=== PATIENT | male | born 1945 | race Caucasian/White ===

== ENCOUNTER 2023-10-17 17:23 | Inpatient (IN) | payer MEDICARE, BC, SELFPAY ==
--- NOTE | 2023-10-16 10:24 | ED.GENMED ---
History of Present Illness
<Meme Doe PA-C - Last Filed: 10/16/23 16:02>
General
Chief Complaint: Change in Mental Status
Source: patient
Exam Limitations: none
Time Seen by Provider: 10/16/23 10:22
Nursing documentation reviewed up to this point in time: agreed with
History of Present Illness
History of Present Illness:
78-year-old male with past history of TIA, hypertension, hyperlipidemia, dementia presents today with concerns of altered mental status. EMS reports that [place] home, [place] with family and family called 911 because patient has been acting
increasingly more confused the past few days. Today, when they went into his bedroom, he noticed he was less responsive and laid on his bed and stated that 'something is wrong'. Currently, patient states that he feels well and states that he is
trouble walking but otherwise denies chest pain, shortness of breath, cough, abdominal pain, nausea, vomiting, diarrhea. Family member arrives and reports that patient does have some mild dementia at baseline but yesterday, he started acting a bit
delirious and was complaining of chills. Family reports that he has not been coughing or complaining of shortness of breath but she notes that he has been ataxic and notes that his presentation today is very similar to the time when he was
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
Past History
<Meme Doe PA-C - Last Filed: 10/16/23 16:02>
Past History
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
stenosis 65% in 2018, proximal left vertebral artery occlusion)
ED Past Surgical History: Orthopedic (left wrist surgery, left foot surgery) and Other (left carotid endarterectomy, prostatectomy)
Social History
Tobacco: Former smoker
Alcohol: Occasional
Personal: Partner
Living: with family
Employment: Other (continues to work)
Family History
Family History: Other (reviewed and noncontributory)
Review of Systems
<eMme Doe PA-C - Last Filed: 10/16/23 16:02>
Review of Systems
All Other Systems: ROS reviewed and negative except as documented in HPI and ROS
Phy Exam
<Meme Doe PA-C - Last Filed: 10/16/23 16:02>
Physical Exam
Physical Exam:
General: Patient is well appearing and in no acute distress; non-toxic
Skin: Warm and dry, no rashes or lesions
Head: Normocephalic, atraumatic
Eyes: Sclera non-icteric. EOMs intact.
Cardiac: Regular rate and rhythm, no murmurs
Peripheral Vascular: No lower extremity swelling or edema
Pulm: Normal respiratory effort, no wheezes, rales, or rhonchi
Abdomen: No abdominal tenderness to palpation, no palpable masses
Musculoskeletal: 5/5 strength in bilateral upper and lower extremities.
Neuro: CN II-XII intact, no focal neurologic deficits. Abnormal finger to nose testing. Ataxic gate.
Psychiatric: Appropriate mood and affect.
Course
<Meme Doe PA-C - Last Filed: 10/16/23 16:02>
Orders/Labs/Results
Orders:
Orders
10/16/23 10:37
Complete Blood Count/With Diff Urgent
Comprehensive Metabolic Panel Urgent
Lyme Progressive Urgent
Comment: ADD
10/16/23 10:47
CT Head W/o Iv Contrast Urgent
Comment:
Reason For Exam: altered mental status
Lyme PCR, DNA [S] Urgent
CR Chest - 2 Views Urgent
Comment:
Reason For Exam: cold symptoms, altered mental status
10/16/23 10:56
Add On- LAB Urgent
Tests Added?: lyme disease
COVID-19 Antigen Urgent
Source: Nasal Swab
10/16/23 11:20
Acetaminophen [Tylenol] 1,000 mg PO NOW STA
10/16/23 12:56
Urinalysis Reflex To Culture Urgent
Date Specimen was Collected: 10/16/23
Time Specimen was Collected: 12:47
Urine Microscopic Reflex Cult Urgent
Urine Culture Urgent
HE Source: U
Specimen Description:
Date Specimen was Collected: 10/16/23
Time Specimen was Collected: 12:47
10/16/23 13:31
Admit/Transfer Patient As Directed
Co-Sign Provider:
Level of Care: Observation services
Assign to:: Telemetry
Physician / Group: vale rolon
Diagnosis: covid-19 infection,ataxia , pyuria likely uti
Reason for Telemetry: Arrhythmia
Date to Stop Telemetry: 10/19/23
Time to Stop Telemetry: 11:00
Reason for Hospitalization: covid-19 infection,ataxia , pyuria likely uti
Code Status As Directed
Resuscitation Status: Do not resuscitate
Reached after discussion with pt or family/Healthcare POA: Yes
Based on pt advanced directive or healthcare POA form: Yes
Decision communicated with: Per patient with Terese SALMON at bedside
10/16/23 13:32
DNR Bracelet Application ONCE
10/16/23 13:46
CefTRIAXone [Rocephin] 1,000 mg IV NOW STA
10/16/23 13:54
Sterile Water [Sterile Water For Injection] 10 ml IV NOW STA
10/16/23 Dinner
1800 calorie (15 carb) Diabetic
10/16/23 15:39
0.9% Sodium Chloride 1000 ml [Nss] 1,000 ml IV 80 mls/hr
Dextrose 50%-Water [Dextrose 50% Syringe] 12.5 grams IV [id number] PRN
Glucagon [GlucaGen] 1 mg IM PRN PRN
10/16/23 15:39
MRI Brain [MR Brain Without Contrast] Routine
Comment:
Reason For Exam: MS change, covid, previous CVA
Recent pill cam endoscopy?: No
Activity As Directed
Activity Level: With Assistance
Bedside Glucose Monitoring As Directed
Frequency: AC&HS
Additional Instructions:: Change to q6h if pt on TPN, tube feeding or not eating
Vital Signs As Directed
Frequency: Per unit guidelines
Ot Eval And Treat Routine
Pt Eval And Treat Routine
Activity Level: As Tolerated
Carotid US [US Cerebrovascular] Routine
Comment:
Reason For Exam: H/O CS
DX Deep Vein Thrombosis Video Routine
10/16/23 16:30
Insulin Aspart Corrective Low [Novolog Flexpen-Low Resistance] See Protocol SC AC
10/16/23 17:00
METFORMIN HCl [Glucophage] 500 mg PO BID@0800,1700
10/16/23 18:00
Acetaminophen [Tylenol] 650 mg PO Q6HPRN PRN
Atorvastatin [Lipitor] 40 mg PO QPM
Enoxaparin Sodium [Lovenox] 40 mg SC QPM
Metoprolol Xl [Toprol Xl] 100 mg PO QPM
Ramipril [Altace] 10 mg PO QPM
10/16/23 20:00
Thiamine HCl [Vitamin B1] 250 mg PO BID
10/17/23 06:00
Complete Blood Count/With Diff IN AM
Comprehensive Metabolic Panel IN AM
Glycohemoglobin (HgbA1c) IN AM
10/17/23 08:00
Aspirin Low Dose EC [Aspir Low (Enteric Coated)] 81 mg PO DAILY
Cholecalciferol (Vitamin D3) [VITAMIN D3 (cholecalciferol)] 100 mcg PO DAILY
Lactobac/Bifidobac [Visbiome] 1 cap PO DAILY
10/17/23 14:00
CefTRIAXone [Rocephin] 1,000 mg IV Q24H
10/18/23 06:00
Complete Blood Count/With Diff IN AM
Comprehensive Metabolic Panel IN AM
10/19/23 06:00
Complete Blood Count/With Diff IN AM
Comprehensive Metabolic Panel IN AM
10/19/23 11:00
DC Protocol for Telemetry ONCE
Abnormal Lab Results
10/16/23 10/16/23 10/16/23
10:37 10:56 12:56
RBC 3.63 L 10^6/uL
(4.70-6.10)
Hgb 12.1 L g/dL
(13.0-18.0)
Hct 35.7 L %
(39.0-52.0)
MCV 98.3 H fL
(80.0-94.0)
MCH 33.3 H pg
(27.0-31.0)
MPV 10.7 H fL
(7.4-10.4)
Absolute Lymphs (auto) 1.0 L 10^3/uL
(1.2-3.4)
Absolute Monos (auto) 0.8 H 10^3/uL
(0.1-0.6)
Lymphocytes % 18.6 L %
(20.5-51.1)
Monocytes % 13.7 H %
(1.7-9.3)
Sodium 133 L mmol/L
(135-145)
Total Protein 5.7 L g/dl
(6.3-8.2)
Urine Ketones 1+ A
(Negative)
Ur Occult Blood Reflex 4+ A
(Negative)
Leukocyte Esterase Rfl 1+ A
(Negative)
Urine RBC >100 A /HPF
(0-2)
Urine WBC (Reflex) 30-40 A /HPF
(0-5)
Urine Bacteria (Reflex) Moderate A
(Negative)
SARS-CoV-2 Antigen Positive A
(Negative)
10/16/23 10:37
10/16/23 10:37
Vital Signs
Initial and Last Documented VS:
Initial Vital Signs
Pulse Resp
67 14
10/16/23 10:33 10/16/23 10:33
Last Documented Vital Signs
Temp Pulse Resp BP Pulse Ox
99.3 F 55 15 154/63 98
10/16/23 13:00 10/16/23 13:00 10/16/23 11:00 10/16/23 11:00 10/16/23 13:00
<Deedee Cole MD - Last Filed: 10/16/23 11:34>
Orders/Labs/Results
Orders:
Orders
10/16/23 10:37
Complete Blood Count/With Diff Urgent
Comprehensive Metabolic Panel Urgent
Lyme Progressive Urgent
Comment: ADD
10/16/23 10:47
CT Head W/o Iv Contrast Urgent
Comment:
Reason For Exam: altered mental status
Lyme PCR, DNA [S] Urgent
CR Chest - 2 Views Urgent
Comment:
Reason For Exam: cold symptoms, altered mental status
10/16/23 10:56
Add On- LAB Urgent
Tests Added?: lyme disease
COVID-19 Antigen Urgent
Source: Nasal Swab
10/16/23 11:20
Acetaminophen [Tylenol] 1,000 mg PO NOW STA
10/16/23 12:56
Urinalysis Reflex To Culture Urgent
Date Specimen was Collected: 10/16/23
Time Specimen was Collected: 12:47
Urine Microscopic Reflex Cult Urgent
Urine Culture Urgent
HE Source: U
Specimen Description:
Date Specimen was Collected: 10/16/23
Time Specimen was Collected: 12:47
10/16/23 13:31
Admit/Transfer Patient As Directed
Co-Sign Provider:
Level of Care: Observation services
Assign to:: Telemetry
Physician / Group: vale rolon
Diagnosis: covid-19 infection,ataxia , pyuria likely uti
Reason for Telemetry: Arrhythmia
Date to Stop Telemetry: 10/19/23
Time to Stop Telemetry: 11:00
Reason for Hospitalization: covid-19 infection,ataxia , pyuria likely uti
Code Status As Directed
Resuscitation Status: Do not resuscitate
Reached after discussion with pt or family/Healthcare POA: Yes
Based on pt advanced directive or healthcare POA form: Yes
Decision communicated with: Per patient with Terese SALMON at bedside
10/16/23 13:32
DNR Bracelet Application ONCE
10/16/23 13:46
CefTRIAXone [Rocephin] 1,000 mg IV NOW STA
10/16/23 13:54
Sterile Water [Sterile Water For Injection] 10 ml IV NOW STA
10/16/23 Dinner
1800 calorie (15 carb) Diabetic
10/16/23 15:39
0.9% Sodium Chloride 1000 ml [Nss] 1,000 ml IV 80 mls/hr
Dextrose 50%-Water [Dextrose 50% Syringe] 12.5 grams IV [id number] PRN
Glucagon [GlucaGen] 1 mg IM PRN PRN
10/16/23 15:39
MRI Brain [MR Brain Without Contrast] Routine
Comment:
Reason For Exam: MS change, covid, previous CVA
Recent pill cam endoscopy?: No
Activity As Directed
Activity Level: With Assistance
Bedside Glucose Monitoring As Directed
Frequency: AC&HS
Additional Instructions:: Change to q6h if pt on TPN, tube feeding or not eating
Vital Signs As Directed
Frequency: Per unit guidelines
Ot Eval And Treat Routine
Pt Eval And Treat Routine
Activity Level: As Tolerated
Carotid US [US Cerebrovascular] Routine
Comment:
Reason For Exam: H/O CS
DX Deep Vein Thrombosis Video Routine
10/16/23 16:30
Insulin Aspart Corrective Low [Novolog Flexpen-Low Resistance] See Protocol SC AC
10/16/23 17:00
METFORMIN HCl [Glucophage] 500 mg PO BID@0800,1700
10/16/23 18:00
Acetaminophen [Tylenol] 650 mg PO Q6HPRN PRN
Atorvastatin [Lipitor] 40 mg PO QPM
Enoxaparin Sodium [Lovenox] 40 mg SC QPM
Metoprolol Xl [Toprol Xl] 100 mg PO QPM
Ramipril [Altace] 10 mg PO QPM
10/16/23 20:00
Thiamine HCl [Vitamin B1] 250 mg PO BID
10/17/23 06:00
Complete Blood Count/With Diff IN AM
Comprehensive Metabolic Panel IN AM
Glycohemoglobin (HgbA1c) IN AM
10/17/23 08:00
Aspirin Low Dose EC [Aspir Low (Enteric Coated)] 81 mg PO DAILY
Cholecalciferol (Vitamin D3) [VITAMIN D3 (cholecalciferol)] 100 mcg PO DAILY
Lactobac/Bifidobac [Visbiome] 1 cap PO DAILY
10/17/23 14:00
CefTRIAXone [Rocephin] 1,000 mg IV Q24H
10/18/23 06:00
Complete Blood Count/With Diff IN AM
Comprehensive Metabolic Panel IN AM
10/19/23 06:00
Complete Blood Count/With Diff IN AM
Comprehensive Metabolic Panel IN AM
10/19/23 11:00
DC Protocol for Telemetry ONCE
Abnormal Lab Results
10/16/23 10/16/23 10/16/23
10:37 10:56 12:56
RBC 3.63 L 10^6/uL
(4.70-6.10)
Hgb 12.1 L g/dL
(13.0-18.0)
Hct 35.7 L %
(39.0-52.0)
MCV 98.3 H fL
(80.0-94.0)
MCH 33.3 H pg
(27.0-31.0)
MPV 10.7 H fL
(7.4-10.4)
Absolute Lymphs (auto) 1.0 L 10^3/uL
(1.2-3.4)
Absolute Monos (auto) 0.8 H 10^3/uL
(0.1-0.6)
Lymphocytes % 18.6 L %
(20.5-51.1)
Monocytes % 13.7 H %
(1.7-9.3)
Sodium 133 L mmol/L
(135-145)
Total Protein 5.7 L g/dl
(6.3-8.2)
Urine Ketones 1+ A
(Negative)
Ur Occult Blood Reflex 4+ A
(Negative)
Leukocyte Esterase Rfl 1+ A
(Negative)
Urine RBC >100 A /HPF
(0-2)
Urine WBC (Reflex) 30-40 A /HPF
(0-5)
Urine Bacteria (Reflex) Moderate A
(Negative)
SARS-CoV-2 Antigen Positive A
(Negative)
10/16/23 10:37
10/16/23 10:37
Vital Signs
Initial and Last Documented VS:
Initial Vital Signs
Pulse Resp
67 14
10/16/23 10:33 10/16/23 10:33
Last Documented Vital Signs
Temp Pulse Resp BP Pulse Ox
99.3 F 55 15 154/63 98
10/16/23 13:00 10/16/23 13:00 10/16/23 11:00 10/16/23 11:00 10/16/23 13:00
<Meme Doe PA-C - Last Filed: 10/16/23 16:02>
MDM/Problems Addressed
Differential Diagnosis Includes:
ddx include metabolic encephalopathy, sepsis, pneumonia, COVID-19 infection, urinary tract infection, CVA, dementia
MDM/Problems Addressed:
Fever, altered mental status:
78-year-old male with past history of TIA, hypertension, hyperlipidemia, dementia presents today with concerns of altered mental status. EMS reports that [place] home, [place] with family and family called 911 because patient has been acting
increasingly more confused the past few days. Today, when they went into his bedroom, he noticed he was less responsive and laid on his bed and stated that 'something is wrong'. Family present in room who reports that patient presented this way
when he had a anaplasmosis infection and was hospitalized. He had a spinal tap at that time which was negative. Patient also has an ataxic gait currently. This was noticed when he had a fever today. Here in the ER, he appears well he is in no
acute distress. He is febrile and warm to the touch. His CBC and CMP are unremarkable. His urinalysis shows concern for possible UTI he did test positive for COVID. Considering patient's ongoing altered mental status, history of tickborne
illness, and new onset neurologic symptoms, will admit patient for further workup and care. Patient referred for admission.
Chronic conditions affecting care:
TIA, hypertension, hyperlipidemia, dementia,
<Meme Doe PA-C - Last Filed: 10/16/23 16:02>
*Critical Care Note
Total Time (30-74mins, 75-104mins- exclusive of procedures): Not Applicable
<Meme Doe PA-C - Last Filed: 10/16/23 16:02>
Patient Management
Social determinants of health affecting care: Strong social support
Escalation/DeEscalation of care consider admission/obs:
Admit indicated, patient referred for admission
ED Attending Note
<Meme Doe PA-C - Last Filed: 10/16/23 16:02>
-
Portions of this chart may have been created with voice recognition software.� Occasional wrong word or��sound alike� substitutions may have occurred due to the inherent limitations of voice recognition software.
<Deedee Cole MD - Last Filed: 10/16/23 11:34>
ED Attending Note
Patient seen and examined by attending physician: Yes
I performed the substantive portion of visit, reviewed & personally made and approve the management plan that is documented in note by myself or NICOLASA.: Yes
ED Attending Note:
Patient is hemodynamically stable but appears flushed, however, he appears nontoxic. On exam, he denies headache and has no meningismus. I do not hear a cardiac murmur. His lungs are clear. He is alert and oriented x 3. He does have some ataxia
on his neurological exam. We will proceed with a chest x-ray, COVID, urinalysis and blood work. In consideration is a tickborne illness. If needed, we will speak to infectious disease.
Discharge Plan
Departure
Patient Disposition: Admit
Date of Disposition: 10/16/23
Time of Disposition: 12:42
Admit to: Med/Surg
Presentation/result/management discussed w/ accepting MD/DO: Hospitalist
Patient with high blood pressure during this ER visit?: Yes
Condition: Fair
Discharge Problem:
Altered mental status, Fever
Interventions
Interventions:
*Risk Screen - Suicide Last Done: 10/16/23 10:38
*General Assessment Last Done: 10/16/23 10:41
*Neglect/Abuse Screening Last Done: 10/16/23 10:38
ED- Fall Risk Assessment Last Done: 10/16/23 15:51
*ED COVID-19 Vaccine History Last Done: 10/16/23 10:38
*Nursing Disposition Last Done: 10/16/23 15:51
ED- Pulmonary Assessment Last Done: 10/16/23 10:46
ED- Neurological Assessment Last Done: 10/16/23 10:44
ED- Cardiac Assessment Last Done: 10/16/23 15:50
ED Swallowing Screen Last Done: 10/16/23 12:23
[2023-10-16 10:32] VITALS: BMI 20.9
[2023-10-16 10:42] VITALS: BP 127/56
[2023-10-16 11:00] VITALS: BP 154/63
[2023-10-16 11:18] LABS: % Basophils 0.4 % (0-2); % Eosinophils 0.4 % (0-6); % Immature Granulocytes 0.5 % (0-0.5); % Lymphocytes 18.6 % (20.5-51.1); % Monocytes 13.7 % (1.7-9.3); % Neutrophils 66.4 % (42.2-75.2); Absolute Monocytes 0.8 10^3/uL (0.1-0.6); Absolute Neutrophils 3.6 10^3/uL (1.4-6.5); Hematocrit 35.7 % (39.0-52.0); Hemoglobin 12.1 g/dL (13.0-18.0); Mean Corp Hgb Conc. 33.9 g/dL (33.0-37.0); Mean Corpuscular Hgb 33.3 pg (27.0-31.0); Mean Corpuscular Volume 98.3 fL (80.0-94.0); Mean Platelet Volume 10.7 fL (7.4-10.4); Nucleated Red Blood Cells % 0 % (-); Platelet Count 137 10^3/uL (130-400); Red Blood Cell Count 3.63 10^6/uL (4.70-6.10); Red Cell Dist. Width 12.1 % (11.5-14.5); White Blood Cell Count 5.5 10^3/uL (4.8-10.8)
[2023-10-16 11:22] LABS: COVID-19 Antigen Positive (Negative)
[2023-10-16 11:31] LABS: ALT (SGPT) 27 U/L (0-50); AST (SGOT) 33 U/L (17-59); Albumin 3.7 g/dl (3.5-5.0); Alkaline Phosphatase 59 U/L (38-126); Blood Urea Nitrogen 18 mg/dl (9-20); Calcium 8.9 mg/dl (8.4-10.2); Carbon Dioxide 26 mmol/L (22-30); Chloride 102 mmol/L (98-107); Estimated Creatinine Clearance 60 ml/min; Glucose 92 mg/dl (70-99); Potassium 4.3 mmol/L (3.5-5.1); Sodium 133 mmol/L (135-145); Total Bilirubin 0.6 mg/dl (0.2-1.3); Total Protein 5.7 g/dl (6.3-8.2); eGFR > 60.00
[2023-10-16] MEDS: TYLENOL 1000 MG PO (11:39)
--- NOTE | 2023-10-16 12:54 | HPS.HSE ---
Addendum entered and electronically signed by HARDIK Tapia 10/16/23 15:29:
Patient changed his mind about CODE STATUS he now wants FULL CODE
Addendum entered and electronically signed by Cassandra Miles MD 10/16/23 14:33:
78-year-old male with fever and chills. Also had a runny nose. felt he was very unsteady when he got out of bed today. She made him come to the ER. He was found to be positive for COVID.
Patient denies any shortness of breath or chest pain or headache.
On examination patient is awake and alert he knows that this is September 2023. He does not exactly remember the day of the week or date
CVS: S1-S2 normal
Chest: CTA B/L
Abdomen: Soft, NT , Bowel sounds present
Extremities: No edema, normal pulses
CLIMBING GUIDE: No facial droop, non focal exam, no nystagmus, no cerebellar signs
# COVID-19 infection
No hypoxia-clear chest x-ray
Patient does not want Paxlovid
Hold off on Decadron
#TME from covid and also UTI
# Reported weakness/ataxia
History of TIA and chronic cerebellar infarcts
History of carotid stenosis on the right
Left carotid stenosis status post CEA
Continue aspirin and statin
CT of the head without any acute changes
Will get MRI of the brain
# Possible UTI with pyuria
Treat with ceftriaxone while waiting for cultures
# History of short-term memory loss/cognitive impairment
Still functional and works 5 days a week
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
# Hypertension-continue ramipril, metoprolol
# Diabetes-continue metformin, Accu-Cheks and sliding scale coverage
Check hemoglobin A1c
# Hyperlipidemia-continue statin
# Ex-smoker
# DVT prophylaxis-Lovenox
Discussed with at bedside
Discussed with ER
Original Note:
Family Physician
-
Family Physician: NO INTERVIEW UNKNOWN
Chief Complaint
-
Fever, chills, runny nose, sneezing, ataxia since yesterday
History of Present Illness
78-year-old male who lives at home with his family who states he has been increasing more confused with chills, runny nose, sneezing since 7 PM last night he has current mild dementia and was telling his family that he felt something is wrong. He
reports he had difficulty trying to get out of bed today due to feeling very tired along with low-grade temp 100.3. When he got up his Terese states he appeared to be ataxic. 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 He was at work on Tuesday. He denies any recent sick contacts. His currently has no symptoms. He is COVID vaccinated x 2 with Moderna history of COVID infection in 2020. They
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
While in the ER he was noted to be febrile at 101.7F and COVID antigen positive. He denies headache, sore throat, shortness of breath, cough, abdominal pain, nausea, vomit, diarrhea, chest pain, palpitations, urinary symptoms
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
Medical History
Past Medical History
Past Medical History: Reports Other
Additional Past Medical History:
HTN
HLD
TIA 12/2017,left cerebellar chronic infarcts
prostate cancer status post prostatectomy
carotid stenosis status post left CEA
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
ex-smoker
LOVELOCK
COVID-19 infection 2020 is vaccinated x 2 with Moderna
Past Surgical History: Reports Other
Additional Past Surgical History:
Left CEA
Prostate cancer with prostatectomy 2004
Bermudez cyst removal 2006
Heel, wrist and pelvis repair 1967
Tonsillectomy
Social History
Tobacco: Former Smoker (20-year 1 pack a day quit early 30s)
Alcohol: Occasional
Personal: ( Terese who is also POA)
Living: With Family
Employment: Retired
Family History
Family History: Not pertinent
Allergies / Home Medications
Allergies reflects when Allergies were last updated in [facility].
Home Medications with original date entered in [facility]
Allergy/Medication List:
Allergies
Allergy/AdvReac Type Severity Reaction Status Date / Time
Sulfa (Sulfonamide Allergy Unknown Verified 08/28/18 06:05
Antibiotics)
Home Medications
aspirin 81 mg tablet,delayed release 81 mg PO DAILY 12/20/17
metoprolol succinate 100 mg tablet,extended release 24 hr 100 mg PO QPM 12/20/17
ramipril 10 mg capsule 10 mg PO QPM 12/20/17
atorvastatin 40 mg tablet 40 mg PO QPM ##30 12/22/17
Lactobac no.2-Bifidobac no.1-S. thermo 112.5 billion cell capsule (Visbiome) 1 cap PO DAILY 10/16/23
cholecalciferol (vitamin D3) 50 mcg (2,000 unit) tablet (Vitamin D3) 100 mcg PO DAILY 10/16/23
metformin 500 mg tablet 500 mg PO BIDWMEAL 10/16/23
thiamine HCl (vitamin B1) 250 mg tablet 250 mg PO BID 10/16/23
Review of Systems
-
History Source: Patient and Family ( Terese at bedside)
A 12 point ROS was completed and negative except as noted: Yes
Constitutional: Reports Fever and Chills
EENT: Reports Runny Nose and Other (Sneezing); Denies Sore Throat
Respiratory: Denies Cough or Trouble Breathing
Cardiac: Denies Chest Pain, Diaphoresis, Palpitations or Syncope
Abdomen/GI: Denies Abdominal Pain, Nausea, Vomiting, Diarrhea, Constipated or Bloody Stools
: Denies Dysuria, Frequency, Flank Pain, Incontinence, Difficulty Voiding or Urgency
Musculoskeletal: Denies Joint Pain, Joint Swelling or Edema
Skin: Denies Itching or Rash
Neurological: Reports Dizzy and Weakness (Generalized); Denies Headache
Endocrine: Reports No Symptoms
Hematologic/Lymphatic: Reports No Symptoms
Psych: Reports Calm
Physical Exam
Vital Signs
Vital Signs
Temp Pulse Resp BP Pulse Ox
101.7 F H 64 15 154/63 98
10/16/23 10:42 10/16/23 11:00 10/16/23 11:00 10/16/23 11:00 10/16/23 10:46
Physical Exam
General: Comfortable, Conversant, Fever, Chills and Other (Awake alert oriented x 3); No Pain
HEENT: NormoCephalic, Anicteric, Moist mucous membranes, PERRLA, [place] Conjunctivae, No Ptosis and Neck Nontender (Negative nuchal rigidity)
Respiratory: Clear; No Wheezes, Rales or Rhonchi
Cardiac: S1/S2 and Regular Rhythm; No Murmur, Rub, Gallop or Peripheral Edema
GI: Soft, Non Tender, Non Distended, Normal Bowel Sounds and No Hepatosplenomegaly
Rectal: Deferred by Provider
Genito-urinary: Deferred by me
Musculoskeletal: No Clubbing, No Cyanosis and No Edema
Skin: Warm and Dry; No Rash
Neuro: AO x 3, No Motor Deficits, Cranial Nerves Intact and No Sensory Deficits; No Slurred Speech, Facial Droop, Tremors or Sedated
Psych: Calm
Laboratory Results
-
10/16/23 10:37
10/16/23 10:37
Laboratory Results
Total Bilirubin 0.6 mg/dl (0.2-1.3) 10/16/23 10:37
AST 33 U/L (17-59) 10/16/23 10:37
ALT 27 U/L (0-50) 10/16/23 10:37
Alkaline Phosphatase 59 U/L (38-126) 10/16/23 10:37
Impression/Plan
-
Impression/plan:
Observationtelemetry
#Symptomatic COVID-19 infection
Confusion, chills, ataxia, sore throat, sneezing, runny nose x 1 day 10/15/2023
COVID antigen positive in ER, pulse ox 96%
Patient does not meet remdesivir or Decadron criteria he and are refusing Paxlovid
-Tylenol for fever
-IV NSS
-pt/ot case mgmt consult
CXR: No acute cardiopulmonary process
#Reported ataxia/weakness likely secondary to COVID-19 infection/fever
#Hx TIA 12/2017/ left cerebellar chronic infarcts
#Carotid stenosis right
#Carotid stenosis left status post CEA
-Patient denies any current dizziness or headache
-Continue aspirin 81 mg daily, statin 40 mg daily
-Lyme panel pending from ER
-PT/OT/case management eval
CT head: No acute intracranial abnormality
#Pyuria likely UTI
RBC 100, WBC 30-40, mod bacteria, plus for occult blood>
#Hx mild [id number] memory impairment only
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
#HTN�benign
-Continue ramipril 10 mg every afternoon, metoprolol succinate 100 mg every afternoon with hold parameters
BP 154/63
#DM2
-Accu-Cheks with SSI, check HgbA1c
-Continue metformin 500 mg twice daily
#HLD
-Continue atorvastatin 40 mg daily
Other PMH:
ex-smoker 20-year 1 pack a day quit mid 30s
LOVELOCK
DVT prophylaxis
Subcu heparin
DNR per patient with Terese SALMON at bedside
[2023-10-16 13:10] LABS: Urine Albumin Trace (Neg - Trace); Urine Bilirubin Negative (Negative); Urine Character Slightly Cloudy (Clear); Urine Color Yellow; Urine Glucose Negative (Negative); Urine Ketone 1+ (Negative); Urine Leukocyte 1+ (Negative); Urine Nitrite Negative (Negative); Urine Occult Blood 4+ (Negative); Urine Urobilinogen Negative (Neg - 1+)
[2023-10-16 13:21] LABS: Urine Mucus Moderate; Urine Squamous Cell 0-2 /LPF (Few)
[2023-10-16 13:22] LABS: Urine Red Blood Cell >100 /HPF (0-2)
[2023-10-16 13:24] LABS: Urine Bacteria Moderate (Negative); Urine White Cell 30-40 /HPF (0-5)
[2023-10-16] MEDS: ROCEPHIN 1000 MG IV (15:20)
[2023-10-16] MEDS: STERILE WATER FOR INJECTION 10 ML IV (15:20)
[2023-10-16 15:58] VITALS: BP 121/51; BMI 20.5
[2023-10-16] MEDS: NSS 1000 IV (16:45)
[2023-10-16] MEDS: GLUCOPHAGE 500 MG PO (16:46)
[2023-10-16] MEDS: LOVENOX 40 MG SC (16:46)
[2023-10-16] MEDS: ALTACE PO (16:47)
[2023-10-16] MEDS: TOPROL XL PO (16:47)
[2023-10-16] MEDS: LIPITOR 40 MG PO (16:47)
[2023-10-16 16:53] LABS: Glucose - Point of Care 82 mg/dl (70-99)
--- NOTE | 2023-10-16 18:07 | PTCARENOTE ---
recieved pt from ED via stretcher, family at bedside, pulled over to bed, bed alarm applied. Vitals taken and charted, oriented to his room.
[2023-10-16 19:20] VITALS: BP 145/59
[2023-10-16] MEDS: VITAMIN B1 250 MG PO (19:33)
[2023-10-16] MEDS: TYLENOL 650 MG PO (19:33)
[2023-10-16 21:30] LABS: Glucose - Point of Care 122 mg/dl (70-99)
[2023-10-16] MEDS: MELATONIN 3 MG PO (22:33)
[2023-10-16 22:42] VITALS: BP 154/63
[2023-10-17] VITALS (11 sets, daily range): BP systolic 124–174; BP diastolic 43–86
--- NOTE | 2023-10-17 01:26 | PTCARENOTE ---
pt has been confused , AAOx1, restless , confused, forgetful, anxious and uncooperative. Pt was place on med sitter without any good outcome. Pt attempted to pull IV access and tried to get up from bed multiple times. Pt is a high fall risk, general
weakness. #25 condom cath was placed. WILDLAND [employer]FIGHTER medical reception was notified concerning his behavior and was given 3 mg of melatonin without any success prior of placing B/L soft wrist restraints. Will cont with treatment plan.
[2023-10-17] MEDS: NSS 1000 IV ×2 (02:31→15:23)
[2023-10-17] MEDS: TYLENOL 650 MG PO (02:31)
[2023-10-17] MEDS: TOPROL XL 25 MG PO (04:34)
[2023-10-17 07:57] LABS: Glucose - Point of Care 114 mg/dl (70-99)
[2023-10-17] MEDS: VITAMIN B1 250 MG PO (08:28)
[2023-10-17] MEDS: VITAMIN D3 (cholecalciferol) 100 MCG PO (08:29)
[2023-10-17] MEDS: GLUCOPHAGE 500 MG PO (08:29)
[2023-10-17] MEDS: VISBIOME 1 CAP PO (08:29)
[2023-10-17] MEDS: ASPIR LOW (ENTERIC COATED) 81 MG PO (08:29)
[2023-10-17 09:23] LABS: % Basophils 0.3 % (0-2); % Immature Granulocytes 0.5 % (0-0.5); % Lymphocytes 17.8 % (20.5-51.1); % Monocytes 6.9 % (1.7-9.3); % Neutrophils 74.5 % (42.2-75.2); Absolute Lymphocytes 1.6 10^3/uL (1.2-3.4); Absolute Monocytes 0.6 10^3/uL (0.1-0.6); Absolute Neutrophils 6.5 10^3/uL (1.4-6.5); Hemoglobin 13.6 g/dL (13.0-18.0); Mean Corpuscular Hgb 33.3 pg (27.0-31.0); Nucleated Red Blood Cells % 0 % (-); Platelet Count 122 10^3/uL (130-400); Red Blood Cell Count 4.08 10^6/uL (4.70-6.10); Red Cell Dist. Width 11.9 % (11.5-14.5); White Blood Cell Count 8.7 10^3/uL (4.8-10.8)
[2023-10-17 09:42] LABS: ALT (SGPT) 25 U/L (0-50); AST (SGOT) 36 U/L (17-59); Albumin 3.8 g/dl (3.5-5.0); Alkaline Phosphatase 56 U/L (38-126); Blood Urea Nitrogen 17 mg/dl (9-20); Calcium 8.7 mg/dl (8.4-10.2); Carbon Dioxide 22 mmol/L (22-30); Chloride 102 mmol/L (98-107); Estimated Creatinine Clearance 68 ml/min; Glucose 110 mg/dl (70-99); Potassium 4.2 mmol/L (3.5-5.1); Sodium 131 mmol/L (135-145); Total Bilirubin 0.7 mg/dl (0.2-1.3); Total Protein 5.9 g/dl (6.3-8.2); eGFR > 60.00
[2023-10-17 11:23] LABS: Glycohemoglobin (HgbA1c) 5.8 % (4.0-5.6)
[2023-10-17 12:11] LABS: Glucose - Point of Care 115 mg/dl (70-99)
--- NOTE | 2023-10-17 12:12 | CM ---
Reviewed the chart notes and spoke with the patient's spouse. The patient is admitted under observational status. The GAO letter was provided to spouse and discussed. The patient's spouse had no questions with regards to the letter.
Per spouse, the patient resides with her in a two story home with 10 steps to enter. The patient uses no DME, never been to a SNF, but has had VN in past, agency name unknown. The patient's pharmacy of choice is [facility]
continues to be available to patient/family and is monitoring medical plan for needs at discharge.
Plan: Discharge plans will depend on the patient's progress. Current in soft wrist restraints.
--- NOTE | 2023-10-17 13:18 | W.PN.HOSP.TC ---
Today's Communication/Plan
-
MRI
Psyche eval
Continue AB
Assessment / Plan
Assessment / Plan
Seen earlier. Late documentation
78-year-old male with fever and chills. Also had a runny nose. felt he was very unsteady when he got out of bed today. She made him come to the ER. He was found to be positive for COVID.
Patient denies any shortness of breath or chest pain or headache.
Patient was very confused. On soft restraints on the wrists for protection. Patient continued trying to climb out of bed. Nursing reports that patient was oriented times self, date and place. When I saw him he was very confused again.
Confused
CVS: S1-S2 normal
Chest: CTA B/L
Abdomen: Soft, NT , Bowel sounds present
Extremities: No edema, normal pulses
RAMP FLIGHT ATTENDANT: No facial droop, non focal exam, able to move all extremities. Not consistently following directions because of confusion.
# COVID-19 infection
No hypoxia-clear chest x-ray
Patient does not want Paxlovid
Hold off on Decadron
#TME from Covid and also UTI
Delirium
would like to request psychiatry evaluation
She states that he normally has sundowning at home where he is confused and has short-term memory loss towards the evening hours and he sleeps poorly and wakes up at 4:00 in the morning. He works..
Likely going to dysfunction at baseline and delirium because of hospital admission and sickness.
# Reported weakness/ataxia
History of TIA and chronic cerebellar infarcts
History of carotid stenosis on the right
Left carotid stenosis status post CEA
Continue aspirin and statin
CT of the head without any acute changes
Will get MRI of the brain (Ativan to keep still)
# Possible UTI with pyuria
Treat with ceftriaxone while waiting for cultures
Urinary retention-straight cath
# History of short-term memory loss/cognitive impairment
Still functional and works 5 days a week
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
# Hypertension-continue ramipril, metoprolol
#Right carotid: Extensive atherosclerotic disease with peak systolic velocity within the proximal ICA measuring 616 cm/s. Elevated end-diastolic velocity and ICA/CCA ratio compatible with a greater than 70% stenosis.
Wait for MRI
ASA, Statin
May need Vascular eval.
# Hyperlipidemia-continue statin
# Ex-smoker
# DVT prophylaxis-Lovenox
Discussed with at bedside
D/W Case management
D/W RN
time more than 50 min
Anticipated Discharge: 24 - 48 hours
Subjective/Interval History
-
Date of Service: October 17, 2023
Objective Data
-
Labs:
Laboratory Results
10/17/23
08:59
WBC 8.7
Hgb 13.6
Hct 40.0
Plt Count 122 L
Sodium 131 L
Potassium 4.2
Chloride 102
Carbon Dioxide 22
BUN 17
Creatinine 0.7
Glucose 110 H
Calcium 8.7
Total Bilirubin 0.7
AST 36
ALT 25
Alkaline Phosphatase 56
Vital Signs:
Vital Signs
Temp Pulse Resp BP Pulse Ox
98.2 F 89 20 171/86 97
10/17/23 11:20 10/17/23 11:20 10/17/23 11:20 10/17/23 11:20 10/17/23 11:20
I&O
10/16/23 10/17/23 10/18/23
06:59 06:59 06:59
Intake Total 2019
Output Total 800 / 800
Balance 1220 / 1220
--- NOTE | 2023-10-17 13:59 | CS.PSYCHR ---
Consult Summary - Psychiatry
-
Pt is 78 yo male brought in by with fever and chills, runny nose, unsteady gait. In ED, pt was found to be positive for COVID-19. Also has suspected UTI. 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
. Pt reportedly confused overnight, uncooperative, trying to pull out IV, trying to get out of bed. Melatonin 3 mg was not effective. Nursing staff reports pt was more clear and fairly oriented this morning, but increasingly confused this
afternoon, agitated, now in soft wrist restraints. Pt noted to have significant urinary retention. Pt seen, awake, restless, pulling some against restraints, repeating disjointed statement about getting out. Discussed medication options for
agitation with pt's , who states she works in mental health.
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
SH: ex-smoker, reports no alcohol consumption in approx 8 years
Psych Hx: denied
MSE: alert, making eye contact, disoriented/confused, repetitive statement about 'getting out', unable to answer questions. Pt restless, pulling against soft wrist restraints. No signs of hallucinations or delusions. Insight impaired at present
Imp: TME due to Covid-19 infection and suspected UTI. Urinary retention is likely adding to agitation
Hx of unspecified cognitive impairment
Rec: Will try Risperdal M tab (orally disintegrating- pt is npo per swallowing assessment)
Agree with trying IV Ativan for agitation, to facilitate getting MRI. Both med options for agitation discussed with pt's , who is in agreement.
Will follow
--- NOTE | 2023-10-17 14:02 | PTOTSP ---
ST Acute Care Evaluation
Pt currently presents with moderately-severe oropharyngeal dysphagia characterized by impaired receipt of bolus, inadequate containment of bolus 2/2 cognitive/behavioral impairment, significant bolus holding, delayed anterior to posterior transport,
and consistently inadequate airway protection with both solids and liquids. Pt's dysphagia is likely 2/2 acute metabolic encephalopathy 2/2 UTI as well as COVID-19, in addition to baseline mild cognitive impairment.
Recommendations:
- STRICT NPO; including meds; NO ARHP yet.
- Aspiration precautions: HOB upright as often as possible; oral care QID.
- EMBOSSING TOOLSETTER to f/u to re-assess pt's safety and candidacy for resuming PO intake.
- EMBOSSING TOOLSETTER to monitor cognitive function - if cognitive function does not return to baseline after tx of underlying conditions, additional assessments can be administered.
[2023-10-17 14:17] LABS: Lyme Antibody Screen, EIA Presump. Positive (Negative)
[2023-10-17] MEDS: ROCEPHIN 1000 MG IV (15:00)
[2023-10-17] MEDS: STERILE WATER FOR INJECTION 10 ML IV (15:00)
[2023-10-17] MEDS: RISPERDAL M-TAB (ORALLY DISINTEGRATING) 0.5 MG PO (15:21)
[2023-10-17] MEDS: THIAMINE INJECTION 200 MG IV (16:03)
[2023-10-17] MEDS: APRESOLINE 5 MG IV (16:04)
--- NOTE | 2023-10-17 16:13 | CONS.URO ---
Consultation
-
Performing Provider: Yevgeniy
Reason for Consultation: urinary retention
Medical History
History of Present Illness
78 yo male brought in by with fever and chills, runny nose, unsteady gait and AMS. In ED, pt was found to be positive for COVID-19. Also has suspected UTI. Pt has hx of cognitive impairment.
Ford placement by RN unsuccessful --> urology consultation requested.
at bedside
Past Medical History
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
ex-smoker,)
Allergies/Home Medications
Allergies
Allergy/AdvReac Type Severity Reaction Status Date / Time
Sulfa (Sulfonamide Allergy Unknown Verified 08/28/18 06:05
Antibiotics)
Home Medications
�Medication �Instructions �Recorded �Confirmed �Type
aspirin 81 mg tablet,delayed 81 mg PO DAILY Blood Clot 12/20/17 10/16/23 History
release Prevention/Tx
metoprolol succinate 100 mg 100 mg PO QPM Blood Pressure 12/20/17 10/16/23 History
tablet,extended release 24 hr
ramipril 10 mg capsule 10 mg PO QPM Blood Pressure 12/20/17 10/16/23 History
atorvastatin 40 mg tablet 40 mg PO QPM ##30 12/22/17 10/16/23 Rx
Lactobac no.2-Bifidobac no.1-S. 1 cap PO DAILY Gastrointestinal 10/16/23 10/16/23 History
thermo 112.5 billion cell capsule Issue
(Visbiome)
cholecalciferol (vitamin D3) 50 100 mcg PO DAILY Supplement 10/16/23 10/16/23 History
mcg (2,000 unit) tablet (Vitamin
D3)
metformin 500 mg tablet 500 mg PO BIDWMEAL Diabetes 10/16/23 10/16/23 History
thiamine HCl (vitamin B1) 250 mg 250 mg PO BID Supplement 10/16/23 10/16/23 History
tablet
Review of Systems
-
Unable to obtain full review of systems at this time due to: Dementia
History Source: Other (records)
Physical Exam
Vital Signs
Vital Signs
Temp Pulse Resp BP Pulse Ox
98.2 F 71 20 166/64 97
10/17/23 11:20 10/17/23 16:04 10/17/23 11:20 10/17/23 16:04 10/17/23 11:20
Lab / Testing Results
Laboratory Results
10/17/23 08:59
10/17/23 08:59
Physical Exam
elderly male
UE restraints
non-verbal
Genito-urinary: Other (circumcised phallus prepped; 14 Fr Ford buckled in posterior urethra c/s stricture; F&F dilated to 18 Fr then Ford placed with prompt return of yellow urine)
Assessment / Plan
-
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
Ford successfully placed s/p stricture dilation
Rec: keep Ford while in bed
Data Reviewed
-
Old Records: Reviewed
--- NOTE | 2023-10-17 16:50 | PTCARENOTE ---
Pt AAOx3 with confusion/agitation this morning during morning rounds with BUE soft limb wrist restraints. Pt noted to have some difficulty swallowing/coughing with oral intake. MD made aware. Speech consulted. Pt becoming more agitated and confused
MD aware. Psych consulted. Pt with no urine output this AM... bladder scanned for 725mL MD notified. Pt straight cathed x3 with second RN at bedside with minimal return, see documentation. MD notified and Urology & Nephrology consulted. Orders for
IMU transfer in, report called. Urology to bedside for catheter placement for retention. 18F Ford successful placed by Urology, and pt transferred to IMU.
--- NOTE | 2023-10-17 16:50 | W.PN.UPDATE ---
Update Note
Progress Note Update
Reevaluated the patient. was at bedside. Nursing was at bedside also.
Patient able to respond to his name called. Does not always answer questions. He keeps his body rigid when we try to move him.
Transfer to stepdown for closer monitoring
Urology consulted for retention
Neurology to evaluate-routine consult
[2023-10-17] MEDS: TYLENOL/FEVERALL 650 MG RECTAL (18:27)
[2023-10-17] MEDS: LOVENOX 40 MG SC (18:27)
[2023-10-17 18:45] LABS: Glucose - Point of Care 119 mg/dl (70-99)
--- NOTE | 2023-10-17 18:45 | PTCARENOTE ---
Received patient from [address] [place] [address]. Patient in isolation for covid. Patient confused, highly agitated and angry. Patient in bilateral wrist restraints needed to obtain order for 4 point soft limbs patient kicking at staff and attempting to climb out of
bed. Patient arrived to unit with axillary temperature of 101.3 order obtained for tylenol suppository. Patient NPO for failed bedside speech evaluation. Will continue to monitor frequently.
[2023-10-17] MEDS: ATIVAN 0.5 MG IV (19:38)
[2023-10-17] MEDS: NSS (PRESERVATIVE FREE) 0.25 ML IV (19:40)
[2023-10-17] MEDS: GLUCOPHAGE PO (20:50)
[2023-10-17] MEDS: LIPITOR PO (20:51)
[2023-10-17] MEDS: TOPROL XL PO (20:51)
[2023-10-17] MEDS: ALTACE PO (20:51)
[2023-10-17 23:28] LABS: Glucose - Point of Care 101 mg/dl (70-99)
[2023-10-18] VITALS (12 sets, daily range): BP systolic 111–155; BP diastolic 41–106
--- NOTE | 2023-10-18 00:54 | PTCARENOTE ---
Pt received from previous shift in bed w/4 point soft limb restraints and 4 side rails up. AAOx2 (place) agitated, restless, attempting to kick legs. Telemetry = SR w/1st degree AV block. Full physical assessment documented (refer to worklist).
IV ativan given. Pt with occasionally productive harsh cough - sputum long/green in color. Assisted w/oral hygiene, suctioned for small amount of secretions. Able to remove LE soft limb restraints, HOUSEHOLD PERSONAL ASSISTANT covering house contacted for new order.
Pt's O2 fluctuating between 90-98% on room air, placed on 2L O2 (electronic order obtained). NSS infusing at 80 mL/hr via #22 LAC. Turned and positioned for comfort. Call gaines within reach. Medsitter in room. Plan of care ongoing.
--- NOTE | 2023-10-18 02:28 | PTCARENOTE ---
Pt with large amount of thick yellow sputum on self and bedding upon hourly rounds/restraint check. Oral suctioned for small amount of secretions. Complete bed bath, gown and linen change at this time. Pt immediately reached for goodwin catheter
when restraints untied. Confused conversation. Plan of care ongoing.
[2023-10-18 04:45] LABS: % Basophils 0.2 % (0-2); % Immature Granulocytes 0.3 % (0-0.5); % Lymphocytes 22.4 % (20.5-51.1); % Monocytes 8.7 % (1.7-9.3); % Neutrophils 68.4 % (42.2-75.2); Absolute Lymphocytes 1.4 10^3/uL (1.2-3.4); Absolute Monocytes 0.6 10^3/uL (0.1-0.6); Absolute Neutrophils 4.3 10^3/uL (1.4-6.5); Hematocrit 39.1 % (39.0-52.0); Hemoglobin 13.5 g/dL (13.0-18.0); Mean Corp Hgb Conc. 34.5 g/dL (33.0-37.0); Mean Corpuscular Hgb 33.2 pg (27.0-31.0); Mean Corpuscular Volume 96.1 fL (80.0-94.0); Mean Platelet Volume 10.2 fL (7.4-10.4); Nucleated Red Blood Cells % 0 % (-); Platelet Count 111 10^3/uL (130-400); Red Blood Cell Count 4.07 10^6/uL (4.70-6.10); White Blood Cell Count 6.3 10^3/uL (4.8-10.8)
[2023-10-18 04:55] LABS: ALT (SGPT) 24 U/L (0-50); AST (SGOT) 50 U/L (17-59); Albumin 3.2 g/dl (3.5-5.0); Alkaline Phosphatase 37 U/L (38-126); Blood Urea Nitrogen 15 mg/dl (9-20); Calcium 8.5 mg/dl (8.4-10.2); Carbon Dioxide 23 mmol/L (22-30); Chloride 105 mmol/L (98-107); Estimated Creatinine Clearance 79 ml/min; Glucose 87 mg/dl (70-99); Potassium 4.3 mmol/L (3.5-5.1); Sodium 132 mmol/L (135-145); Total Bilirubin 0.7 mg/dl (0.2-1.3); Total Protein 5.3 g/dl (6.3-8.2); eGFR > 60.00
[2023-10-18 06:26] LABS: Glucose - Point of Care 85 mg/dl (70-99)
--- NOTE | 2023-10-18 06:41 | PTCARENOTE ---
ABATTOIR MANAGER covering house contacted since 0600 accucheck was 85. Pt is strict NPO. Electronic order received to change IVF to [id number] (refer to MAY).
[2023-10-18] MEDS: NOVOLOG FLEXPEN-LOW RESISTANCE SC ×4 (07:37→18:32)
[2023-10-18] MEDS: GLUCOPHAGE PO (07:38)
[2023-10-18] MEDS: ASPIR LOW (ENTERIC COATED) PO (07:38)
[2023-10-18] MEDS: VISBIOME PO (07:38)
[2023-10-18] MEDS: VITAMIN D3 (cholecalciferol) PO (07:38)
[2023-10-18] MEDS: NSS IV (07:39)
[2023-10-18] MEDS: THIAMINE INJECTION 200 MG IV (08:03)
[2023-10-18] MEDS: D5/0.9% SODIUM CHLORIDE 1000 IV ×2 (08:03→20:40)
[2023-10-18] MEDS: TYLENOL/FEVERALL 650 MG RECTAL ×2 (08:16→13:45)
--- NOTE | 2023-10-18 09:00 | PTCARENOTE ---
Patient received from slot shift manager. Patient resting comfortably in bed. AAOx1-2 aware of self, VSS. No events noted overnight. No complaints of pain at this time. Patient remains in two point soft wrist restraints, will continue to assess
necessity. Medsitter in place. Ford placed yesterday, yellow urine. Will obtain order. Call gaines in reach.
--- NOTE | 2023-10-18 10:39 | W.PN.HOSP.TC ---
Addendum entered and electronically signed by Cassandra Miles MD 10/18/23 10:57:
Mild thrombocytopenia-likely secondary to COVID-follow
Original Note:
Today's Communication/Plan
-
Continue to reorient
Use restraints for protection
MRI of the brain-with Ativan
Continue ceftriaxone
ID and neuro evaluation awaited
Assessment / Plan
Assessment / Plan
78-year-old male with fever and chills. Also had a runny nose. felt he was very unsteady when he got out of bed today. She made him come to the ER. He was found to be positive for COVID.
Patient denies any shortness of breath or chest pain or headache.
Patient was very confused. On soft restraints on the wrists for protection.
Slightly more oriented and able to converse than yesterday afternoon.
CVS: S1-S2 normal
Chest: CTA B/L, poor respiratory effort
Abdomen: Soft, NT , Bowel sounds present
Extremities: No edema, normal pulses
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 Not consistently following directions because of confusion.
# COVID-19 infection
Febrile
On 2 L of oxygen now.
Spoke to . She is Ok with Paxlovid now. She has taken it in the past. will order. (Hold Statin)
Hold off on Decadron as it can escalate his confusion. but if more hypoxic may need that
Chest x-ray reviewed by me
Basilar areas with atelectasis
Incentive spirometry to be continued
# Fever
Likely Covid, but also get blood CX
Continue Rocephin to treat possible aspiration
#Lyme serology- initial screen back positive, western blot pending.
# TME from Covid and also UTI
Delirium
would like to request psychiatry evaluation
She states that he normally has sundowning at home where he is confused and has short-term memory loss towards the evening hours and he sleeps poorly and wakes up at 4:00 in the morning. He works..
Likely going to dysfunction at baseline and delirium because of hospital admission and sickness.
# Reported weakness/ataxia
History of TIA and chronic cerebellar infarcts
History of carotid stenosis on the right
Left carotid stenosis status post CEA
Continue aspirin and statin
CT of the head without any acute changes
Will get MRI of the brain (Ativan to keep still)
Neuro eval appreciated
# Possible UTI with pyuria
Treat with ceftriaxone while waiting for cultures
Urinary retention-Ford placed
# Mild hyponatremia-likely SIADH secondary to infection
#Lyme Screen positive- Western blot pending
ID eval.
# History of short-term memory loss/cognitive impairment
Still functional and works 5 days a week
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
# Hypertension-continue ramipril, metoprolol
# Right carotid: Extensive atherosclerotic disease with peak systolic velocity within the proximal ICA . Elevated end-diastolic velocity and ICA/CCA ratio compatible with a greater than 70% stenosis.
Wait for MRI
ASA, Hold statin while on Paxlovid.
May need Vascular eval as OP
# Hyperlipidemia-Hold statin while on Paxlovid.
# Ex-smoker
# DVT prophylaxis-Lovenox
D/W RN
time more than 50 min
Called and updated in detail
D/W RN
Anticipated Discharge: > 48 hours
Subjective/Interval History
-
Date of Service: October 18, 2023
Objective Data
-
Labs:
Laboratory Results
10/18/23
04:14
WBC 6.3
Hgb 13.5
Hct 39.1
Plt Count 111 L
Sodium 132 L
Potassium 4.3
Chloride 105
Carbon Dioxide 23
BUN 15
Creatinine 0.6 L
Glucose 87
Calcium 8.5
Total Bilirubin 0.7
AST 50
ALT 24
Alkaline Phosphatase 37 L
Vital Signs:
Vital Signs
Temp Pulse Resp BP Pulse Ox
101.8 F H 60 18 132/47 97
10/18/23 07:55 10/18/23 06:00 10/18/23 06:00 10/18/23 06:00 10/18/23 06:00
I&O
10/17/23 10/18/23 10/19/23
06:59 06:59 06:59
Intake Total 2019 / 2019 960 / 960
Output Total 800 / 800 1000 / 1000
Balance 1220 / 1220 -40 / -40
--- NOTE | 2023-10-18 10:52 | PTOTSP ---
ST Follow-Up
Pt currently presents with clinical symptoms consistent with mild to moderate oropharyngeal dysphagia.
Recommendations:
- Continue NPO x meds in puree.
- ARHP - ice chips PRN with supervision s/p oral care.
- Aspiration precautions: HOB upright as often as possible; oral care QID with suctioning; encourage pt to cough and expectorate if presenting with a congested upper airway or wet vocal quality; suctioning via yankauer PRN.
- TURBINE ENGINEER to f/u to re-assess pt's candidacy for PO diet reinitiation and to determine whether pt would benefit from an instrumental swallow study.
--- NOTE | 2023-10-18 10:58 | CON.ID ---
Consultation
-
Date/Time Consultation Requested: October 18, 2023 0314
Date/Time Consultation Performed: October 18, 2023 1100
Requesting Provider: Dr. Cassandra Miles
Performing Provider: Dr. Neyda Lang
Reason for Consultation: Fever
Chief Complaint / Past History
Chief Complaint
Fever, ataxia, change in mental status
History of Present Illness
History obtained from review of medical systems since patient currently unable to provide a meaningful history. He is a 78-year-old male with mild dementia, history of TIA/left cerebellar infarct, carotid stenosis who presented to the hospital on
October 15 when he developed acute onset of sneezing, rhinorrhea, the evening of October 14. Patient also noted to be confused. The next day he had trouble getting out of bed and was unsteady on his feet. Positive weakness. Had temperature of 100.3 at
home. He was brought to the hospital and COVID was positive. No recent COVID vaccine within the past 6 months. Temperature was one 101.7 in the ER. Chest x-ray negative. Initially his refused Paxlovid but now agrees and Paxlovid started
today. Patient currently very lethargic and not responsive to my questions.
Past History
Additional Past Medical History:
Mild dementia
Hypertension
Dyslipidemia
TIA
Left cerebellar chronic infarcts
Carotid stenosis s/p Left CEA
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
Prostate cancer status post prostatectomy
Heel, wrist and pelvis repair 1968
Allergy History:
Sulfa (Sulfonamide Antibiotics) Allergy (Verified 08/28/18 06:05)
Unknown
Medications Reviewed: Yes
Current Antibiotics:
ceftriaxone d2
Paxlovid d1
Social History
Tobacco: Former Smoker
Alcohol: Occasional
Personal:
Living: With Family
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
Family History
Family History: Not Pertinent
Review of Systems
Review of Systems
Unable to obtain due to mental status change.
Vital Signs
Temp Pulse Resp BP Pulse Ox
99.3 F 60 18 132/47 97
10/18/23 10:42 10/18/23 06:00 10/18/23 06:00 10/18/23 06:00 10/18/23 06:00
Selected Entries
10/18/23
07:55
Temp 101.8 F H
Physical Exam
Physical Exam
Constitutional: Acutely Ill
Head: Other (No frontal or maxillary sinus tenderness)
Eyes: No Conjunctival Hemorrhage and Sclera Anicteric
Cardiovascular: Regular Rate and S1/S2
Pulmonary: Clear
Gastrointestinal: Soft, Non Tender, Non Distended and Normal Bowel Sounds
Genito-Urinary: Ford and Clear Urine; Negative CVA Tenderness
Extremities: Negative Edema
Neurological: Other (Extremely lethargic.)
Lab / Diagnostic Study Results
10/18/23 04:14
10/18/23 04:14
Abs Immat Gran (auto) 0.0 10^3/uL (0-0.05) 10/18/23 04:14
Absolute Neuts (auto) 4.3 10^3/uL (1.4-6.5) 10/18/23 04:14
Absolute Lymphs (auto) 1.4 10^3/uL (1.2-3.4) 10/18/23 04:14
Absolute Monos (auto) 0.6 10^3/uL (0.1-0.6) 10/18/23 04:14
Absolute Basos (auto) 0.0 10^3/uL (0-0.2) 10/18/23 04:14
Immature Gran % 0.3 % (0-0.5) 10/18/23 04:14
Neutrophils % 68.4 % (42.2-75.2) 10/18/23 04:14
Lymphocytes % 22.4 % (20.5-51.1) 10/18/23 04:14
Monocytes % 8.7 % (1.7-9.3) 10/18/23 04:14
Eosinophils % 0.0 % (0-6) 10/18/23 04:14
Basophils % 0.2 % (0-2) 10/18/23 04:14
Ur Squamous Epith Cells 0-2 /LPF (Few) 10/16/23 12:56
Microbiology Results
Micro:
10/18/23 10:33 Blood Culture - Pending
Blood/Venous
10/16/23 12:56 Urine Culture - Final
Urine NO GROWTH
10/16/23 CXR: No acute cardiopulmonary process.
10/17/23 Vascular US: Right carotid: Extensive atherosclerotic disease with peak systolic velocity within the proximal ICA measuring 616 cm/s. Elevated end-diastolic velocity and ICA/CCA ratio compatible with a greater than 70% stenosis. Left
carotid: Mild calcified plaque/intimal thickening within the bulb proximal ICA causing less than 50% luminal narrowing.
Assessment / Plan
# Symptomatic COVID infection
# Fever due to COVID
- Symptom onset 10/14 evening
- CXR no PNA.
-Oxygenating well room air.
- Agree with Paxlovid x 5d.
- DC ceftriaxone.
- Follow temps
# Encephalopathy
- likely due to COVID.
- Hx of Lyme IGG +, IgM neg. Suspect the current repeat Lyme test will again reflect past Lyme exposure
DC ceftriaxone.
--- NOTE | 2023-10-18 11:41 | CON.NEURO4 ---
Addendum entered and electronically signed by Tashi Kauffman MD 10/18/23 16:25:
Studies reviewed.
I have personally examined the patient. I reviewed and agree with the CATALOGUE MAKER's Note.
My addenda:
Awake, alert, interactive. No acute distress.
Speech dysarthric at times, confused, with the patient unable to provide his own information
Follows 1-step requests w/ difficulty. No tremor.
Extra-ocular movements grossly intact.
Facial movements full and symmetric. Hearing intact to normal conversational volume.
Normal UE movements bilaterally.
Neck: full ROM.
Chest: no dyspnea
Heart: no JVD
Ext: (-) Clubbing, (-) Cyanosis, (-) Edema
IMPRESSIONS/RECOMMENDATIONS:
Abrupt onset of toxic metabolic encephalopathy most likely with a background of dementia
There is no evidence of a focal abnormality producing symptomatology
Unfortunately, based on the patient's prior history of right internal carotid artery stenosis and stroke in 2018, the possibility of diffuse small ischemic strokes cannot be completely eliminated. The most likely diagnosis however is toxic
metabolic encephalopathy. Patient not a candidate for either tenecteplase or intra-arterial thrombectomy due to lack of clarity regarding diagnosis
When possible, check MRI of brain
Supportive care
Check blood work for potential metabolic abnormalities producing symptomatology
Check additional imaging for patient's known right internal carotid artery stenosis with consideration for outpatient vascular surgery evaluation if appropriate
Continue aspirin 81 mg daily
Continue atorvastatin
Will continue to follow pending results.
Original Note:
Documented by User: Palak Max NP 10/18/23 12:13
Consultation - Neurology 4
-
CONSULTING PHYSICIAN: Tashi Kauffman MD
REFERRING PHYSICIAN: Hospitalists/Dr. Miles
DICTATED BY: HARDIK Mccormack
DATE/TIME OF REQUEST: 10/17/23
DATE/TIME OF CONSULTATION: 10/18/23
Reason for Consultation: Altered mental status
History of Present Illness:
This is a 78-year-old male who has presented to the hospital on 10/16/23 with report of runny nose, chills, fever, and unsteady gait. Patient is confused and cannot provide an accurate history at this time, most of this information is obtained from
medical records. Patient has been previously evaluated by our Neurology service in 2018 for an episode of unresponsiveness followed by transient left-sided weakness.
From previous outpatient evaluation by Neurology Dr. Gary on 01/13/18:
'Mr. Wallace is here in the office today for a follow-up visit after a recent hospitalization earlier in December 2017 when he had presented with an episode of unresponsiveness lasting a few minutes which was followed by left-sided weakness, but the
patient denies any weakness following this episode of unresponsiveness. An MRI of the brain performed at that time was remarkable for three 2-3 mm microinfarcts in the right frontal lobe. An EEG performed in the hospital for a suspected seizure was
reported as unremarkable.
�������Since his discharge from the hospital, the patient denies having had any other episodes of loss of consciousness or unresponsiveness. He also denies any other neurologic complaints like dizziness, blurred vision, focal weakness or numbness in
extremities, difficulty speaking or swallowing or headache. He reports compliance with his medications including aspirin, atorvastatin and blood pressure medications. He denies any other neurologic complaints.'
On arrival in the ER on 10/16/23 patient was Covid positive and urinalysis was suggestive of UTI but urine culture has now resulted negative. CT Head was obtained and is negative for any acute abnormalities. Patient notably has had significant R ICA
stenosis demonstrated on vessel imaging since 2018. Patient has been confused, uncooperative, agitated, and restless during this hospitalization prompting Neurology consultation. Currently, patient is alert with confused conversation. He denies any
headache, dizziness, vision changes, speech/swallow difficulty, numbness, weakness, chest pain, palpitations, and shortness of breath. 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 He does not appear to be currently followed by a Neurologist and is not taking any memory stabilization medications. He has been taking aspirin 81mg daily since his stroke in 2018.
Past Medical History: R frontal lobe micro ischemic infarcts, small left cerebellar ischemic infarcts, TIA, carotid stenosis, proximal left vertebral artery occlusion, HTN, HLD, cognitive impairment, prostate cancer, anaplasmosis phagocytophilium
Surgical History: L CEA, prostatectomy, left wrist surgery, left foot surgery
Family History: Reviewed and noncontributory.
Social History: Former smoker. Former alcohol. Denies illicit drug use.
Allergies: Sulfa.
Home Medications: See below.
Review of Symptoms:
Patient denies any fever, headache, chest pain, shortness of breath, GI or symptoms.
�Per the HPI.�All systems are reviewed negative except above.
Physical Exam:
The patient is afebrile, abdomen is nondistended, breathing is mildly labored on oxygen via nasal cannula, frequent cough, skin is warm and dry, no edema.
NIH Stroke Scale:
I performed the NIH stroke scale on the patient on 10/18/23 at 0845. The patient scored 2 points on the NIH stroke scale assessment, which were assigned as follows: See below.
Neurologic Examination:
The patient is awake, alert and oriented to self only. He is able to follow commands and answer questions appropriately. There is no aphasia or dysarthria. On cranial nerve assessment, pupils are 3 mm bilateral, round and reactive to light and
accommodation. Visual michael are full. Extraocular movements are intact. Facial sensations are intact and bilaterally symmetrical, there is no facial asymmetry. Hearing is intact bilaterally to normal conversation volume. Tongue palate and uvula
are midline. Sternocleidomastoid strengths are full bilaterally. Motor strengths are 5/5 bilateral upper and lower extremities on medical research [place] scale. There is no drift or involuntary movement noted. Deep tendon reflexes are 1+ bilateral
upper and lower extremities and Babinski is absent bilaterally. IQRA sensation and double simultaneous. Coordination is intact by finger to nose bilaterally.
Lab Results: See below.
Neuro Imaging:
1. CT Head 10/16/23: No acute intracranial abnormality noted.
Differentials for the patient's presentation include:
1. TME and possible delirium in the setting of Covid infection, hospitalization, and underlying cognitive impairment likely producing altered mental status.
2. No focal deficits on examination concerning for stroke but cannot entirely rule this diagnosis out given his history and current Covid infection.
3. R ICA ~70% stenosis, appears asymptomatic at this time.
4. History of right frontal lobe and left cerebellar ischemic strokes.
Patient has the following risk factors for their symptoms: Covid infection, UTI, cognitive impairment
Recommendations:
-MRI brain noncontrast.
-Continue aspirin 81mg daily.
-Goal normotension.
-Goal normoglycemia.
-Infectious workup/treatment per primary team.
-Checking blood work for metabolic abnormalities.
-Patient needs outpatient Neuropsychological testing for cognitive impairment.
-Patient needs outpatient follow-up with Vascular Surgery regarding R ICA stenosis.
-Minimize sedating medications. Encourage appropriate sleep/wake cycles with reduction of nighttime disturbances, minimize day time napping, and encourage day light exposure.
-DVT prophylaxis.
-Will follow pending results.
Discussed patient care with: Dr. Kauffman, the patient
Vital Signs and Labs
-
Vital Signs and Labs:
Vital Signs
Temp Pulse Resp BP Pulse Ox
99.3 F 60 18 132/47 97
10/18/23 10:42 10/18/23 06:00 10/18/23 06:00 10/18/23 06:00 10/18/23 06:00
Lab Results
10/18/23 04:14
10/18/23 04:14
Sodium 132 mmol/L (135-145) L 10/18/23 04:14
Potassium 4.3 mmol/L (3.5-5.1) 10/18/23 04:14
BUN 15 mg/dl (9-20) 10/18/23 04:14
Glucose 87 mg/dl (70-99) 10/18/23 04:14
Calcium 8.5 mg/dl (8.4-10.2) 10/18/23 04:14
Medications
-
Active Medications
Generic Name Dose Route Start Last Admin
Trade Name Freq PRN Reason Stop Dose Admin
Acetaminophen 650 mg 10/16/23 18:00 10/17/23 02:31
Acetaminophen 325 Mg Tablet PO 11/13/23 17:59 650 mg
Q6HPRN PRN Administration
mild pain/ fever>100.5F
Acetaminophen 650 mg 10/17/23 18:15 10/18/23 08:16
Acetaminophen 650 Mg Rectal Suppository RECTAL 11/14/23 18:14 650 mg
Q6HPRN PRN Administration
mild pain or fever > 100.4
Aspirin 81 mg 10/17/23 08:00 10/18/23 07:38
Aspirin 81 Mg (Enteric Coated) Tablet PO 11/14/23 07:59 Not Given
DAILY ELMER
Atorvastatin Calcium 40 mg 10/16/23 18:00 10/17/23 20:51
Atorvastatin (Lipitor) 40 Mg Tablet PO 11/13/23 17:59 Not Given
QPM ELMER
Cholecalciferol 100 mcg 10/17/23 08:00 10/18/23 07:38
Cholecalciferol (Vitamin D3) 50 Mcg Tablet (2,000 Units) PO 11/14/23 07:59 Not Given
DAILY ELMER
Dextrose 12.5 grams 10/16/23 15:39
Dextrose 50% (0.5 Grams/Ml) 50 Ml Syringe IV 11/13/23 15:38
[id number] PRN
hypoglycemia
Protocol
Enoxaparin Sodium 40 mg 10/16/23 18:00 10/17/23 18:27
Enoxaparin Sodium 40 Mg/0.4 Ml Syringe SC 11/13/23 17:59 40 mg
QPM ELMER Administration
Glucagon 1 mg 10/16/23 15:39
Glucagon 1 Mg Vial IM 11/13/23 15:38
PRN PRN
hypoglycemia
Protocol
Hydralazine HCl 5 mg 10/17/23 15:43
Hydralazine 20 Mg/Ml Vial IV 11/14/23 15:42
Q6HPRN PRN
SBP over 160 mm Hg
Dextrose/Sodium Chloride 1,000 mls @ 80 mls/hr 10/18/23 07:00 10/18/23 08:03
D5/0.9% Sodium Chloride IV 1,000 mls
.[id number] ELMER Administration
Insulin Aspart 0 units 10/18/23 00:00 10/18/23 07:37
Insulin Aspart Low Resistance 300 Units/3 Ml Pen.Injctr SC 11/15/23 00:00 Not Given
Q6 ELMER
Protocol
Lactobacillus/Bifidobacterium 1 cap 10/17/23 08:00 10/18/23 07:38
Lactobac/Bifidobac (Visbiome) PO 11/14/23 07:59 Not Given
DAILY ELMER
Lorazepam 0.5 mg 10/18/23 11:00
Lorazepam 2 Mg/Ml Vial IV 10/18/23 17:00
TODAY ELMER
Metformin HCl 500 mg 10/16/23 17:00 10/18/23 07:38
Metformin 500 Mg Regular Release Tablet PO 11/13/23 16:59 Not Given
BID@0800,1700 ELMER
Metoprolol Succinate 100 mg 10/16/23 18:00 10/17/23 20:51
Metoprolol 100 Mg Extended Release Tablet PO 11/13/23 17:59 Not Given
QPM ELMER
Metoprolol Tartrate 5 mg 10/17/23 21:05
Metoprolol 5 Mg/5 Ml Vial IV 11/14/23 21:04
Q6HPRN PRN
HR >100
Nirmatrelvir/Ritonavir 1 dose 10/18/23 11:00
Nirmatrelvir 300 Mg/Ritonavir 100 Mg (Paxlovid 300 Mg;100 Mg Dose Pack) PO 10/22/23 20:01
BID ELMER
Ramipril 10 mg 10/16/23 18:00 10/17/23 20:51
Ramipril (Altace) 10 Mg Capsule PO 11/13/23 17:59 Not Given
QPM ELMER
Risperidone 0.5 mg 10/17/23 14:17 10/17/23 15:21
Risperidone 0.5 Mg Orally Disintegrating Tablet PO 11/14/23 14:16 0.5 mg
Q6H PRN Administration
agitation
Sodium Chloride 0 flush 10/16/23 16:00
Sodium Chloride 0.9% (Flush) Syringe IV 11/13/23 15:59
PER PROTOCOL ELMER
Sodium Chloride 0.25 ml 10/18/23 11:00
Nss (Pf) 10 Ml Vial For Ativan 0.5 Mg Dose IV 10/18/23 17:00
TODAY ELMER
Thiamine HCl 200 mg 10/17/23 16:00 10/18/23 08:03
Thiamine (100 Mg/Ml) 2 Ml Vial IV 11/14/23 15:59 200 mg
DAILY ELMER Administration
Home Medications
�Medication �Instructions �Recorded
aspirin 81 mg tablet,delayed 81 mg PO DAILY Blood Clot 12/20/17
release Prevention/Tx
metoprolol succinate 100 mg 100 mg PO QPM Blood Pressure 12/20/17
tablet,extended release 24 hr
ramipril 10 mg capsule 10 mg PO QPM Blood Pressure 12/20/17
atorvastatin 40 mg tablet 40 mg PO QPM ##30 12/22/17
Lactobac no.2-Bifidobac no.1-S. 1 cap PO DAILY Gastrointestinal 10/16/23
thermo 112.5 billion cell capsule Issue
(Visbiome)
cholecalciferol (vitamin D3) 50 100 mcg PO DAILY Supplement 10/16/23
mcg (2,000 unit) tablet (Vitamin
D3)
metformin 500 mg tablet 500 mg PO BIDWMEAL Diabetes 10/16/23
thiamine HCl (vitamin B1) 250 mg 250 mg PO BID Supplement 10/16/23
tablet
NIH Stroke Score
Subsequent NIH Scale
Date of Subsequent NIH Scale: 10/18/23
Time of Subsequent NIH Scale: 08:45
NIH Stroke Score
Level of Consciousness: 0 - Alert
LOC Questions: 2-Neither correct
LOC Commands: 0-Performs both correctly
Best Horizontal Gaze: 0-Normal
Visual Michael: 0=Normal, no visual loss
Facial Palsy: 0=Normal, symmetrical
Motor - Right Arm: 0=No drift 10 seconds
Motor - Left Arm: 0=No drift 10 seconds
Motor - Right Le-No drift 5 seconds
Motor - Left Le-No drift 5 seconds
Limb Ataxia: 0-Absent
Sensation: 0-Normal
Best Language: 0-No aphasia
Dysarthria: 0-Normal
Extinction and Inattention: 0-No abnormality
Total Score:: 2

Documented by User: Tashi Kauffman MD 10/18/23 16:19
NIH Stroke Score
NIH Stroke Score
Total Score:: 2
--- NOTE | 2023-10-18 11:57 | W.PN.UPDATE ---
Update Note
Progress Note Update
Chart reviewed and discussed with RN, patient currently on COVID precautions and remains confused/unable to offer any meaningful or additional information and therefore did not enter room. was not currently at bedside. Patient is reportedly
somewhat calmer with no acute issues overnight. Appears to remain in restraints for safety and prevent removal of goodwin catheter and IVs. Received one dose of Risperdal yesterday with no reported ill effects.
Impression/recommendations: TME due to Covid-19 infection -Paxlovid initiated; History of unspecified cognitive impairment - Risperdal M tab available at a PRN for agitation while patient remains NPO. Ativan would also be appropriate in small doses
if needed. Will follow.
[2023-10-18 13:36] LABS: HDL Cholesterol 33 mg/dl; LDL Cholesterol, Calculated 36 mg/dl; Total Cholesterol 80 mg/dl (50-199); Triglyceride 57 mg/dl (10-149); Very Low Density Lipoprotein 11 mg/dl (0-30)
[2023-10-18 13:49] LABS: Glucose - Point of Care 96 mg/dl (70-99)
[2023-10-18] MEDS: PAXLOVID 2X150 MG-100 MG DOSE PACK PO (14:01)
[2023-10-18 14:06] LABS: Osmolality Serum 271 mOsm/kg (275-300)
[2023-10-18 14:08] LABS: TSH Reflex To Free T4 2.45 uIU/ml (0.47-4.68)
[2023-10-18 14:43] LABS: Folate 5.9 ng/ml (2.76-20); Vitamin B12 494 pg/ml (239-931)
[2023-10-18] MEDS: PAXLOVID 2X150 MG-100 MG DOSE PACK 1 DOSE PO ×2 (15:39→20:39)
--- NOTE | 2023-10-18 17:16 | CM ---
Patient with Dx COVID-19 infection, Possible UTI, TME, weakness/ataxia, Lyme screen positive. O2 2L. Febrile. NPO. IVF. ST; dysphagia. Receiving Paxlovid. PT & OT on hold. Per nursing; confused, soft restraints, Medsitter in place.
CM continuing to follow.
Plan TBD.
[2023-10-18] MEDS: LOVENOX 40 MG SC (18:13)
[2023-10-18] MEDS: ALTACE 10 MG PO (18:13)
[2023-10-18] MEDS: RISPERDAL M-TAB (ORALLY DISINTEGRATING) 0.5 MG PO (18:14)
[2023-10-18] MEDS: TOPROL XL 100 MG PO (18:14)
[2023-10-18] MEDS: GLUCOPHAGE 500 MG PO (18:14)
[2023-10-18 18:24] LABS: Glucose - Point of Care 131 mg/dl (70-99)
[2023-10-18] MEDS: TYLENOL 650 MG PO (20:38)
[2023-10-18 21:13] LABS: Urine Albumin Trace (Neg - Trace); Urine Bilirubin Negative (Negative); Urine Character Clear (Clear); Urine Color Yellow; Urine Glucose Negative (Negative); Urine Ketone 1+ (Negative); Urine Leukocyte Trace (Negative); Urine Nitrite Negative (Negative); Urine Occult Blood 3+ (Negative); Urine Specific Gravity 1.025 (<1.030); Urine Urobilinogen Negative (Neg - 1+)
[2023-10-18 21:24] LABS: Urine Mucus Few; Urine Sodium 45 mmol/L (30-90); Urine Squamous Cell 0-2 /LPF (Few)
[2023-10-18 21:25] LABS: Urine Bacteria Moderate (Negative)
[2023-10-18 21:43] LABS: Osmolality Urine 744 mOsm/kg (300-900)
--- NOTE | 2023-10-18 23:55 | PTCARENOTE ---
Pt received from previous shift in bed, bilateral wrist restraints and 4 side rails. AAOx2, restless, uncooperative, [place]. Telemetry = SR. Full physical assessment documented (refer to worklist). Received call from [place], pt managed to get a
hold of Ford and attempting to remove. Unable to remove restraints, new order obtained. Turned and positioned for comfort. #22 LAC w/NSS at 80 mL/hr. Call gaines within reach. Plan of care ongoing.
[2023-10-19] VITALS (14 sets, daily range): BP systolic 126–160; BP diastolic 47–120; PULSE 65
[2023-10-19 00:47] LABS: Glucose - Point of Care 149 mg/dl (70-99)
[2023-10-19] MEDS: NOVOLOG FLEXPEN-LOW RESISTANCE SC ×4 (04:36→18:00)
[2023-10-19 05:34] LABS: % Immature Granulocytes 0.4 % (0-0.5); % Lymphocytes 22.3 % (20.5-51.1); % Monocytes 5.8 % (1.7-9.3); % Neutrophils 71.5 % (42.2-75.2); Absolute Lymphocytes 1.1 10^3/uL (1.2-3.4); Absolute Monocytes 0.3 10^3/uL (0.1-0.6); Absolute Neutrophils 3.4 10^3/uL (1.4-6.5); Hematocrit 35.3 % (39.0-52.0); Hemoglobin 12.2 g/dL (13.0-18.0); Mean Corp Hgb Conc. 34.6 g/dL (33.0-37.0); Mean Corpuscular Hgb 33.2 pg (27.0-31.0); Mean Corpuscular Volume 96.2 fL (80.0-94.0); Mean Platelet Volume 10.6 fL (7.4-10.4); Nucleated Red Blood Cells % 0 % (-); Platelet Count 110 10^3/uL (130-400); Red Blood Cell Count 3.67 10^6/uL (4.70-6.10); White Blood Cell Count 4.8 10^3/uL (4.8-10.8)
[2023-10-19 05:46] LABS: Blood Urea Nitrogen 14 mg/dl (9-20); Calcium 8.3 mg/dl (8.4-10.2); Carbon Dioxide 22 mmol/L (22-30); Chloride 108 mmol/L (98-107); Estimated Creatinine Clearance 79 ml/min; Glucose 122 mg/dl (70-99); Potassium 3.8 mmol/L (3.5-5.1); Sodium 135 mmol/L (135-145); eGFR > 60.00
[2023-10-19 06:35] LABS: Glucose - Point of Care 116 mg/dl (70-99)
--- NOTE | 2023-10-19 08:06 | W.PN.NEURO.1 ---
Addendum entered and electronically signed by Kirill Ventura MD 10/19/23 14:19:
Brain MRI negative for acute infarct does show chronic infarct in the cerebellum. Supports that most of the patient's confusion is due to COVID-19.
Patient still has high-grade right carotid stenosis which is asymptomatic should still be followed in the office setting with vascular surgery.
Continue his exisiting aspirin.
Will follow as needed call with questions and concerns
Original Note:
Today's Communication / Plan
-
-Await MRI
-Aspirin and statin
-Treating COVID, supportive care
Neuro Assessment/Plan
Assessment
78 man presenting with generalized weakness and confusion found to have COVID-19.
Known high-grade carotid stenosis on the right internal carotid
Nonfocal neurologic examination not highly suggestive of a right sided symptomatic carotid
Symptomatic COVID most likely is contributing to his confusion with toxic metabolic encephalopathy
Subjective/Objective
Subjective Data
Date of Service: October 19, 2023
No acute events, patient able to have some conversation, says he feels like a lot of his brain function is foggy
Objective Data
Vital Signs
Temp Pulse Resp BP Pulse Ox
98.8 F 73 20 150/56 97
10/19/23 03:37 10/19/23 06:00 10/19/23 06:00 10/19/23 06:00 10/19/23 05:00
Lab Results
10/19/23 04:33
10/19/23 04:33
Sodium 135 mmol/L (135-145) 10/19/23 04:33
Potassium 3.8 mmol/L (3.5-5.1) 10/19/23 04:33
BUN 14 mg/dl (9-20) 10/19/23 04:33
Glucose 122 mg/dl (70-99) H 10/19/23 04:33
Calcium 8.3 mg/dl (8.4-10.2) L 10/19/23 04:33
LDL Cholesterol, Calc 36 mg/dl 10/18/23 04:14
Vitamin B12 494 pg/ml (239-931) 10/18/23 04:14
Patient Allergies
Sulfa (Sulfonamide Antibiotics) Allergy (Verified 08/28/18 06:05)
Unknown
Review of Systems
-
Constitutional: Fatigue and Weakness
EENT: No Symptoms Reported
Respiratory: No Symptoms
Cardiac: No Symptoms
Abdomen/GI: No Symptoms
Genitourinary: No Symptoms
Musculoskeletal: No Symptoms
Skin: No Symptoms
Neuro: Speech Problem
Endocrine: No Symptoms
Hematologic / Lymphatic: No Symptoms
Allergy / Immunology: No Symptoms
Physical Exam
-
General: Comfortable
Eyes: No Ptosis
HEENT: Normocephalic
Neck: No Bruits Bilaterally
Respiratory: No Dyspnea
Cardiac: Regular Rhythm
GI: Normal Bowel Sounds
Skin: Unremarkable
Extremities: No Clubbing
Psych: Confused and Intact Judgement/Insight; Negative Agitated
Extended Neurological Exam
Mood & Affect: Mood Unremarkable and Affect Unremarkable
Attention Span & Concentration: Other (Awake alert, knows in hospital, has some insight into confusion, says his name, 's name, able to answer basic questions fairly well)
Memory: Unremarkable
Tremor: Hand Tremor Absent
Speech: Dysarthric; Negative Expressive Aphasia or Receptive Aphasia
Cranial Nerve II: Left Eye: Pupillary Reactivity Unremarkable and Pupillary Size Unremarkable
Cranial Nerve II: Right Eye: Pupillary Reactivity Unremarkable and Pupillary Size Unremarkable
Cranial Nerves III, IV, : Extraocular Movement: Extraocular Movement Full in all Directions
Muscle Strength, Overall: Full Throughout
Pronator Drift: No Drift in Upper Extremities
Data Reviewed
-
CT-A: Report Reviewed and Image Reviewed
CT Head: Report Reviewed and Image Reviewed
MRI Head: Ordered and Pending
--- NOTE | 2023-10-19 09:00 | PTCARENOTE ---
Patient received from photograph developer. Patient resting comfortably in bed. AAOx1-2 still mostly aware of self although does state hospital but not correct one, VSS. No events noted overnight. No complaints of pain at this time. Patient remains in
two point soft wrist restraints, will continue to assess necessity as we reported overnight there was a trial off but patient still pulled at goodwin. Medsitter in place. Goodwin with urine. Still with pending MRI. Call gaines in reach.
--- NOTE | 2023-10-19 09:29 | W.PN.HOSP.TC ---
Today's Communication/Plan
-
PT OT
Speech eval
MRI today
Add unasyn
Assessment / Plan
Assessment / Plan
78-year-old male with fever and chills. Also had a runny nose. felt he was very unsteady when he got out of bed today. She made him come to the ER. He was found to be positive for COVID.
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
Patient appears to be answering questions. More organized than how he was yesterday. Still forgetful and confused. Appropriately following directions. He has difficulty hearing
CVS: S1-S2 normal
Chest: Coarse breath sounds bilaterally. Productive cough with yellow sputum
Abdomen: Soft, NT , Bowel sounds present
Extremities: No edema, normal pulses
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
# COVID-19 infection
Febrile
Paxlovid started yesterday
Chest x-ray reviewed by me-patchy infiltrates
Suspect aspiration pneumonia-start Unasyn
Incentive spirometry to be continued
Aspiration precautions. Speech following
# Fever
Likely Covid, but also get blood CX
Treat aspiration pneumonia with Unasyn
# TME from Covid and also UTI
Delirium-slightly better
On risperidone as needed
She states that he normally has sundowning at home where he is confused and has short-term memory loss towards the evening hours and he sleeps poorly and wakes up at 4:00 in the morning. He works..
Likely cognitive dysfunction at baseline and delirium because of hospital admission and sickness.
# Reported weakness/ataxia
History of TIA and chronic cerebellar infarcts
History of carotid stenosis on the right
Left carotid stenosis status post CEA
Continue aspirin and statin
CT of the head without any acute changes
Will get MRI of the brain (Ativan to keep still)
Neuro eval appreciated
# Possible UTI with pyuria
Cultures negative
# Mild hyponatremia-Resolved. 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
# Lyme Screen positive- Western blot pending
# History of short-term memory loss/cognitive impairment
Still functional and works 5 days a week
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
# Hypertension-continue ramipril, metoprolol
# Right carotid: Extensive atherosclerotic disease with peak systolic velocity within the proximal ICA . Elevated end-diastolic velocity and ICA/CCA ratio compatible with a greater than 70% stenosis.
Wait for MRI
ASA, Hold statin while on Paxlovid.
May need Vascular eval as OP
# Hyperlipidemia-Hold statin while on Paxlovid.
# Ex-smoker
# DVT prophylaxis-Lovenox
D/W RN at bedside
Discussed with infectious disease
Time more than 50 min
Called and updated in detail and updated.
Anticipated Discharge: 24 - 48 hours
Subjective/Interval History
-
Date of Service: October 19, 2023
Objective Data
-
Labs:
Laboratory Results
10/19/23
04:33
WBC 4.8
Hgb 12.2 L
Hct 35.3 L
Plt Count 110 L
Sodium 135
Potassium 3.8
Chloride 108 H
Carbon Dioxide 22
BUN 14
Creatinine 0.6 L
Glucose 122 H
Calcium 8.3 L
Vital Signs:
Vital Signs
Temp Pulse Resp BP Pulse Ox
98.8 F 73 20 150/56 97
10/19/23 03:37 10/19/23 06:00 10/19/23 06:00 10/19/23 06:00 10/19/23 05:00
I&O
10/18/23 10/19/23 10/20/23
06:59 06:59 06:59
Intake Total 960 / 960 960 / 960
Output Total 1000 / 1000 300 / 300
Balance -40 / -40 660 / 660
[2023-10-19] MEDS: VISBIOME 1 CAP PO (09:31)
[2023-10-19] MEDS: VITAMIN D3 (cholecalciferol) 100 MCG PO (09:31)
[2023-10-19] MEDS: ASPIR LOW (ENTERIC COATED) 81 MG PO (09:31)
[2023-10-19] MEDS: THIAMINE INJECTION 200 MG IV (09:31)
[2023-10-19] MEDS: PAXLOVID 2X150 MG-100 MG DOSE PACK 1 DOSE PO ×2 (09:31→21:23)
[2023-10-19] MEDS: GLUCOPHAGE 500 MG PO ×2 (09:31→17:29)
[2023-10-19] MEDS: NSS (PRESERVATIVE FREE) 0.25 ML IV (09:54)
[2023-10-19] MEDS: ATIVAN 0.5 MG IV (09:54)
[2023-10-19] MEDS: UNASYN IV ×3 (11:35→21:23)
[2023-10-19 12:10] LABS: Glucose - Point of Care 118 mg/dl (70-99)
--- NOTE | 2023-10-19 13:01 | W.PN.ID1 ---
Date of Service
Date of Service: October 19, 2023
Today's Communication
See below
Assessment / Plan
# Symptomatic COVID infection
# Fever due to COVID, trending down
- Symptom onset 10/14 evening
- Admission CXR no PNA.
- Continue Paxlovid (d2 of 5)
- Follow temps
# Encephalopathy
- likely due to COVID.
- Hx of Lyme IGG +, IgM neg. Suspect the current repeat Lyme test will again reflect past Lyme exposure
# Aspiration pneumonia
- Acute hypoxic insufficiency
-Repeat CXR new bibasilar opacity
- Started Unasyn
- Aspiration precaution
#Additional Past Medical History:
Mild dementia
Hypertension
Dyslipidemia
TIA
Left cerebellar chronic infarcts
Carotid stenosis s/p Left CEA
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
Prostate cancer status post prostatectomy
Heel, wrist and pelvis repair 1967
Chief Complaint
-: Fever and Other (COVID)
Subjective / Review of Systems
Very drowsy
Vital Signs / Physical Exam
Vital Signs
Vital Signs
Temp Pulse Resp BP Pulse Ox
99.5 F 73 20 150/56 97
10/19/23 07:15 10/19/23 06:00 10/19/23 06:00 10/19/23 06:00 10/19/23 05:00
Physical Exam
Constitutional: Acutely Ill
Cardiovascular: Regular Rate and S1/S2
Pulmonary: Coarse (bases)
Gastrointestinal: Soft, Non Tender and Non Distended
Genito-Urinary: Ford and Clear Urine
Extremities: Negative Edema
Neurological: Other (drowsy); Negative Meningeal Signs
Objective Data
Lab Data
Lab Results
10/19/23 04:33
10/19/23 04:33
Estimated Creat Clear 79 ml/min 10/19/23 04:33
Total Bilirubin 0.7 mg/dl (0.2-1.3) 10/18/23 04:14
AST 50 U/L (17-59) 10/18/23 04:14
ALT 24 U/L (0-50) 10/18/23 04:14
Alkaline Phosphatase 37 U/L (38-126) L 10/18/23 04:14
Most recent labs reviewed.
Micro Results:
10/18/23 10:33 Blood Culture - Preliminary
Blood/Venous No Growth in 24 hours- Final report to follow
10/18/23 18:21 Urine Culture - Pending
Urine
10/16/23 12:56 Urine Culture - Final
Urine NO GROWTH
10/16/23 CXR: No acute cardiopulmonary process.
10/17/23 Vascular US: Right carotid: Extensive atherosclerotic disease with peak systolic velocity within the proximal ICA measuring 616 cm/s. Elevated end-diastolic velocity and ICA/CCA ratio compatible with a greater than 70% stenosis. Left
carotid: Mild calcified plaque/intimal thickening within the bulb proximal ICA causing less than 50% luminal narrowing.
10/18/23 CXR: There are new areas of airspace disease in both lower lobes, left greater than right. Findings suggest pneumonia.
10/19/23 Brain MRI: No acute intracranial abnormality. Prior small infarcts within the left cerebellar hemisphere, similar in appearance prior. Mucosal thickening with layering secretions in the right maxillary sinus.
Care Review
Plan reviewed with: Physician (Dr. Miles)
--- NOTE | 2023-10-19 13:50 | W.PN.UPDATE ---
Update Note
Progress Note Update
psych attempted to see patient but he was still sedated from mri. will return tomorrow. noted mri without acute findings.
[2023-10-19] MEDS: D5/0.9% SODIUM CHLORIDE 1000 IV (17:27)
[2023-10-19] MEDS: RISPERDAL 0.25 MG PO (17:29)
[2023-10-19] MEDS: LOVENOX 40 MG SC (17:29)
[2023-10-19] MEDS: ALTACE PO (17:30)
[2023-10-19] MEDS: TOPROL XL PO (17:30)
[2023-10-19 17:54] LABS: Glucose - Point of Care 126 mg/dl (70-99)
[2023-10-19] MEDS: D5/0.9% SODIUM CHLORIDE IV (21:28)
--- NOTE | 2023-10-19 21:34 | PTCARENOTE ---
Pt took 2 Paxlovid pills and spit the 3rd pill out. Pt educated about the medication. B/l wrist restraints in place, due to pt trying to pull goodwin out.
--- NOTE | 2023-10-19 22:55 | PTCARENOTE ---
HARDIK Olsen notified and order placed, pt placed in 4 point b/l restraints, due to trying to kick staff and attempting to get out of bed. Medsitter in place. Bed alarm in place.
[2023-10-20] VITALS (13 sets, daily range): BP systolic 139–177; BP diastolic 58–84; BMI 20.5
[2023-10-20] MEDS: RISPERDAL M-TAB (ORALLY DISINTEGRATING) 0.5 MG PO ×2 (00:09→06:14)
[2023-10-20] MEDS: APRESOLINE 5 MG IV ×3 (00:20→21:08)
[2023-10-20 00:36] LABS: Glucose - Point of Care 146 mg/dl (70-99)
[2023-10-20] MEDS: NOVOLOG FLEXPEN-LOW RESISTANCE SC ×3 (00:39→23:38)
[2023-10-20] MEDS: UNASYN IV ×4 (03:35→21:03)
[2023-10-20 05:19] LABS: Glucose - Point of Care 158 mg/dl (70-99)
[2023-10-20] MEDS: NOVOLOG FLEXPEN-LOW RESISTANCE 1 UNITS SC ×2 (05:32→12:16)
[2023-10-20] MEDS: D5/0.9% SODIUM CHLORIDE 1000 IV (09:49)
[2023-10-20] MEDS: THIAMINE INJECTION IV (09:51)
[2023-10-20] MEDS: VITAMIN D3 (cholecalciferol) PO ×2 (09:53→11:39)
[2023-10-20] MEDS: GLUCOPHAGE PO ×3 (09:53→17:23)
[2023-10-20] MEDS: VISBIOME PO ×2 (09:53→11:39)
[2023-10-20] MEDS: ASPIR LOW (ENTERIC COATED) 81 MG PO (09:53)
[2023-10-20] MEDS: THIAMINE INJECTION 200 MG IV (09:55)
[2023-10-20] MEDS: PAXLOVID 2X150 MG-100 MG DOSE PACK 1 DOSE PO ×2 (09:57→20:49)
--- NOTE | 2023-10-20 10:15 | W.PN.ID1 ---
Date of Service
Date of Service: October 20, 2023
Today's Communication
Continue Paxlovid and Unasyn.
Assessment / Plan
# Symptomatic COVID infection
# Fever due to COVID, resolved
- Symptom onset 10/14 evening
- Admission CXR no PNA.
- Continue Paxlovid (d3 of 5)
# Aspiration pneumonia due to decreased mental status
- Acute hypoxic insufficiency, decreasing oxygen requirement
-Repeat CXR new bibasilar opacity
- Continue Unasyn (d2)
- Aspiration precaution
# Encephalopathy - improving
- likely due to COVID.
- Hx of Lyme IGG +, IgM neg. Suspect the current repeat Lyme test will again reflect past Lyme exposure
#Additional Past Medical History:
Mild dementia
Hypertension
Dyslipidemia
TIA
Left cerebellar chronic infarcts
Carotid stenosis s/p Left CEA
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
Prostate cancer status post prostatectomy
Heel, wrist and pelvis repair 1967
Chief Complaint
-: Fever and Other (COVID)
Subjective / Review of Systems
More alert today. c/o productive cough.
Vital Signs / Physical Exam
Vital Signs
Vital Signs
Temp Pulse Resp BP Pulse Ox
98.5 F 99 21 169/77 96
10/20/23 03:39 10/20/23 06:18 10/20/23 06:08 10/20/23 06:18 10/20/23 06:08
Physical Exam
Constitutional: Acutely Ill
Cardiovascular: Regular Rate and S1/S2
Pulmonary: Rhonchi and Coarse
Gastrointestinal: Soft and Non Tender
Neurological: Awake and Alert
Objective Data
Lab Data
Lab Results
10/19/23 04:33
10/19/23 04:33
Estimated Creat Clear 79 ml/min 10/19/23 04:33
Total Bilirubin 0.7 mg/dl (0.2-1.3) 10/18/23 04:14
AST 50 U/L (17-59) 10/18/23 04:14
ALT 24 U/L (0-50) 10/18/23 04:14
Alkaline Phosphatase 37 U/L (38-126) L 10/18/23 04:14
Most recent labs reviewed.
Micro Results:
10/18/23 18:21 Urine Culture - Final
Urine NO GROWTH
10/18/23 10:33 Blood Culture - Preliminary
Blood/Venous No Growth in 24 hours- Final report to follow
10/16/23 12:56 Urine Culture - Final
Urine NO GROWTH
10/16/23 CXR: No acute cardiopulmonary process.
10/17/23 Vascular US: Right carotid: Extensive atherosclerotic disease with peak systolic velocity within the proximal ICA measuring 616 cm/s. Elevated end-diastolic velocity and ICA/CCA ratio compatible with a greater than 70% stenosis. Left
carotid: Mild calcified plaque/intimal thickening within the bulb proximal ICA causing less than 50% luminal narrowing.
10/18/23 CXR: There are new areas of airspace disease in both lower lobes, left greater than right. Findings suggest pneumonia.
10/19/23 Brain MRI: No acute intracranial abnormality. Prior small infarcts within the left cerebellar hemisphere, similar in appearance prior. Mucosal thickening with layering secretions in the right maxillary sinus.
--- NOTE | 2023-10-20 11:31 | W.PN.UPDATE ---
Update Note
Progress Note Update
patient seen chart reviewed. patient w covid still symptomatic eg coughing. spoke with nursing. patient continues to be confused although calm right now. he did not know he was in a hospital today. he did tell me it was 2023 however he was
unable to engage in any coherent conversation frequently telling me to go and get the orange juice. (when i asked him if he wanted orange juice he answered with a comment that was not relevant). bloodwork looks okay. bp somewhat high this am. he
was agitated last evening and early this am. he was placed on risperdal standing order at 4pm which he received yesterday and received prns as well shortly after midnight and around six this am. he is now calm and working his way out of
restraints. did not make any changes in his medications. will continue to follow.
--- NOTE | 2023-10-20 12:22 | W.PN.HOSP.TC ---
Addendum entered and electronically signed by Cassandra Miles MD 10/20/23 13:17:
[phone]
Addendum entered and electronically signed by Cassandra Miles MD 10/20/23 13:15:
Discussed with patient's in detail. All questions answered. She is aware that patient is still confused.
She has tested positive for COVID and cannot come to the hospital until Tuesday per hospital policy that I am being told.
I have reached out to urology to see if any voiding trial can be
Original Note:
Today's Communication/Plan
-
needs PT OT
He needs to get in a chair and move
Speech eval daily.
Add risperidone daily am also
change prn to 0.25 mg
Assessment / Plan
Assessment / Plan
78-year-old male with fever and chills. Also had a runny nose. felt he was very unsteady when he got out of bed today. She made him come to the ER. He was found to be positive for COVID.
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
Patient answering questions. like yesterday, Calm Still forgetful and confused. Appropriately following directions. He has difficulty hearing
CVS: S1-S2 normal
Chest: Coarse breath sounds bilaterally. Productive cough with yellow sputum
Abdomen: Soft, NT , Bowel sounds present
Extremities: No edema
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
MRI- No acute intracranial abnormality. Prior small infarcts within the left cerebellar hemisphere, similar in appearance prior.Mild atrophy with sequelae of mild small vessel ischemic disease.Mucosal thickening with layering secretions in the right
maxillary sinus. Recommend correlation for possible acute sinusitis.
# COVID-19 infection
Paxlovid to be continued
Suspect aspiration pneumonia-started Unasyn
Incentive spirometry to be continued
Aspiration precautions. Speech following
# Fever
Likely Covid, but also get blood CX
Treat aspiration pneumonia with Unasyn
# TME from Covid and also UTI
Delirium-slightly better
On risperidone as needed
She states that he normally has sundowning at home where he is confused and has short-term memory loss towards the evening hours and he sleeps poorly and wakes up at 4:00 in the morning. He works..
Likely cognitive dysfunction at baseline and delirium because of hospital admission and sickness.
# Reported weakness/ataxia
History of TIA and chronic cerebellar infarcts
History of carotid stenosis on the right
Left carotid stenosis status post CEA
Continue aspirin and statin
CT of the head without any acute changes
# Possible UTI with pyuria
Cultures negative
# Mild hyponatremia-Resolved. 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
# Lyme Screen positive- Western blot pending
# History of short-term memory loss/cognitive impairment
Still functional and works 5 days a week
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
# Hypertension-continue ramipril, metoprolol
# Right carotid: Extensive atherosclerotic disease with peak systolic velocity within the proximal ICA . Elevated end-diastolic velocity and ICA/CCA ratio compatible with a greater than 70% stenosis.
Wait for MRI
ASA, Hold statin while on Paxlovid.
May need Vascular eval as OP
# Hyperlipidemia-Hold statin while on Paxlovid.
# Ex-smoker
# DVT prophylaxis-Lovenox
D/W RN at bedside
Called busy tone .
Will try later
Anticipated Discharge: 24 - 48 hours
Subjective/Interval History
-
Date of Service: October 20, 2023
Objective Data
-
Vital Signs:
Vital Signs
Temp Pulse Resp BP Pulse Ox
98.6 F 99 21 169/77 96
10/20/23 07:15 10/20/23 06:18 10/20/23 06:08 10/20/23 06:18 10/20/23 06:08
I&O
10/19/23 10/20/23 10/21/23
06:59 06:59 06:59
Intake Total 960 / 960 2280 / 2280
Output Total 300 / 300 950 / 950
Balance 660 / 660 1330 / 1330
[2023-10-20 12:24] LABS: Glucose - Point of Care 151 mg/dl (70-99)
[2023-10-20] MEDS: RISPERDAL M-TAB (ORALLY DISINTEGRATING) 0.25 MG PO (13:31)
--- NOTE | 2023-10-20 13:54 | CM ---
Patient with Dx COVID-19 infection, Possible UTI, TME, weakness/ataxia, Lyme screen positive. O2 2L. NPO. IVF. ST; dysphagia. Receiving Paxlovid, Risperdal. PT & OT on hold. Per nursing; confused, soft restraints, Medsitter in place.
Spoke with Dr Escobar; patient's confusion may be related to his having Covid.
Messages with Dr Miles: will start SNF discussions however need to wait to send SNF referrals when patient not agitated and in restraints, and when he is able to work with PT/OT.
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
home with Covid currently so unable to visit patient. Discussed SNFS geographically close to [place] - her preference [facility]. Discussed local SNFs and provided ratings. She is interested in [facility] however will want to research them further. Offered to send her SNF list to her email ---> sent to [email or web address]. Discussed strategy to wait to send referrals when patient is hopefully calmer and out of restraints. Terese may want
to tour these facilities - suggested she contact the SNFs to see if she is allowed to go there wearing a mask, as each facility may have different rules about Visitors with Covid.
Plan follow patient's mentation/behavior.
Plan follow up with for SNF choices.
[2023-10-20 16:12] LABS: Lyme Ab Western Blot IgG Positive (Negative); Lyme Ab Western Blot IgM Negative (Negative)
[2023-10-20] MEDS: LOVENOX SC ×2 (17:19→17:33)
[2023-10-20] MEDS: RISPERDAL 0.25 MG PO (17:20)
[2023-10-20] MEDS: ALTACE 10 MG PO (17:21)
[2023-10-20] MEDS: TOPROL XL 100 MG PO (17:21)
[2023-10-20 17:41] LABS: Glucose - Point of Care 134 mg/dl (70-99)
--- NOTE | 2023-10-20 21:00 | PTCARENOTE ---
Pt took 1 Paxlovid pill and spit the other 2 out. Pt is refusing to take PO medications, eduction provided. Pt is AAOx1, confused, forgetful, restless and agitated. Pt in 4 point restraints (see worklist).
[2023-10-20 23:09] LABS: Glucose - Point of Care 135 mg/dl (70-99)
[2023-10-21] VITALS (14 sets, daily range): BP systolic 145–214; BP diastolic 57–105
[2023-10-21] MEDS: UNASYN IV (04:50)
[2023-10-21 05:15] LABS: Glucose - Point of Care 110 mg/dl (70-99)
[2023-10-21] MEDS: NOVOLOG FLEXPEN-LOW RESISTANCE SC ×3 (05:21→18:00)
[2023-10-21] MEDS: APRESOLINE 5 MG IV (06:10)
--- NOTE | 2023-10-21 08:51 | W.PN.ID1 ---
Date of Service
Date of Service: October 21, 2023
Today's Communication
Transition Unasyn (d3) to Augmentin 875mg po bid through 10/25/23.
Continue Paxlovid x5 days though 10/22/2003
Continue isolation through
Assessment / Plan
# Aspiration pneumonia due to decreased mental status
- Repeat CXR new bibasilar opacity compared to admission CXR
- Acute hypoxic insufficiency, decreasing oxygen requirement
- Transition Unasyn (d3) to Augmentin 875mg po bid through 10/25/23.
- Aspiration precaution
# Symptomatic COVID infection
# Fever due to COVID, resolved
- Symptom onset 10/14 evening
- Admission CXR no PNA.
- Continue Paxlovid x5 days though 10/22/2003
-Continue isolation through 10/26/23.
# Encephalopathy
- likely due to COVID.
#Additional Past Medical History:
Mild dementia
Hypertension
Dyslipidemia
TIA
Left cerebellar chronic infarcts
Carotid stenosis s/p Left CEA
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
Prostate cancer status post prostatectomy
Heel, wrist and pelvis repair 1967
Chief Complaint
-: Pneumonia and Other (COVID)
Subjective / Review of Systems
Awake, confused.
Vital Signs / Physical Exam
Vital Signs
Vital Signs
Temp Pulse Resp BP Pulse Ox
98.2 F 59 20 174/61 91
10/21/23 07:50 10/21/23 06:10 10/21/23 06:04 10/21/23 06:10 10/21/23 06:04
Physical Exam
Pulmonary: Rhonchi and Coarse
Gastrointestinal: Soft, Non Tender and Non Distended
Genito-Urinary: Ford and Clear Urine
Extremities: Negative Edema
Neurological: Awake
Psychological: Confused
Objective Data
Lab Data
Lab Results
10/19/23 04:33
Estimated Creat Clear 79 ml/min 10/19/23 04:33
Total Bilirubin 0.7 mg/dl (0.2-1.3) 10/18/23 04:14
AST 50 U/L (17-59) 10/18/23 04:14
ALT 24 U/L (0-50) 10/18/23 04:14
Alkaline Phosphatase 37 U/L (38-126) L 10/18/23 04:14
Most recent labs reviewed.
Micro Results:
10/18/23 10:33 Blood Culture - Preliminary
Blood/Venous No Growth in 48 hours- Final report to follow
10/18/23 18:21 Urine Culture - Final
Urine NO GROWTH
10/16/23 12:56 Urine Culture - Final
Urine NO GROWTH
10/16/23 CXR: No acute cardiopulmonary process.
10/17/23 Vascular US: Right carotid: Extensive atherosclerotic disease with peak systolic velocity within the proximal ICA measuring 616 cm/s. Elevated end-diastolic velocity and ICA/CCA ratio compatible with a greater than 70% stenosis. Left
carotid: Mild calcified plaque/intimal thickening within the bulb proximal ICA causing less than 50% luminal narrowing.
10/18/23 CXR: There are new areas of airspace disease in both lower lobes, left greater than right. Findings suggest pneumonia.
10/19/23 Brain MRI: No acute intracranial abnormality. Prior small infarcts within the left cerebellar hemisphere, similar in appearance prior. Mucosal thickening with layering secretions in the right maxillary sinus.
[2023-10-21] MEDS: THIAMINE INJECTION 200 MG IV (09:12)
[2023-10-21] MEDS: PAXLOVID 2X150 MG-100 MG DOSE PACK PO ×2 (09:13→10:07)
[2023-10-21] MEDS: ASPIR LOW (ENTERIC COATED) PO ×2 (09:14→10:07)
[2023-10-21] MEDS: GLUCOPHAGE PO ×2 (09:14→17:54)
[2023-10-21] MEDS: VISBIOME PO (09:15)
[2023-10-21] MEDS: VITAMIN D3 (cholecalciferol) PO (09:15)
[2023-10-21] MEDS: AUGMENTIN 875 MG/125 MG PO ×2 (09:24→10:07)
--- NOTE | 2023-10-21 10:15 | W.PN.HOSP.TC ---
Today's Communication/Plan
-
Continue antibiotics
Patient should get out of bed with PT
Use Nava chair if needed
Speech to reevaluate for p.o. intake
Continue antibiotics antiviral and IV fluids
Assessment / Plan
Assessment / Plan
78-year-old male with fever and chills. Also had a runny nose. felt he was very unsteady when he got out of bed today. She made him come to the ER. He was found to be positive for COVID.Patient denied any shortness of breath or chest pain
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
CVS: S1-S2 normal
Chest: Coarse breath sounds bilaterally. Productive cough with yellow sputum
Abdomen: Soft, NT , Bowel sounds present
Extremities: No edema
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 Confused.
MRI- No acute intracranial abnormality. Prior small infarcts within the left cerebellar hemisphere, similar in appearance prior.Mild atrophy with sequelae of mild small vessel ischemic disease.Mucosal thickening with layering secretions in the right
maxillary sinus. Recommend correlation for possible acute sinusitis.
# COVID-19 infection
Paxlovid to be continued
Suspect aspiration pneumonia-started Unasyn
Incentive spirometry to be continued
Aspiration precautions. Speech following.
# Fevers
Likely Covid, but also get blood CX
Treat aspiration pneumonia with Unasyn
# TME from Covid and also UTI
Delirium-slightly better
On risperidone as needed
She states that he normally has sundowning at home where he is confused and has short-term memory loss towards the evening hours and he sleeps poorly and wakes up at 4:00 in the morning. He works..
Likely cognitive dysfunction at baseline and delirium because of hospital admission and sickness.
# Reported weakness/ataxia
History of TIA and chronic cerebellar infarcts
History of carotid stenosis on the right
Left carotid stenosis status post CEA
Continue aspirin and hold statin
CT of the head without any acute changes
# Possible UTI with pyuria
Cultures negative
# Urinary retention-likely secondary to urethral stricture. Ford placed by urology. I spoke to Dr. Mtz yesterday. We can do voiding trial prior to discharge.
# Mild thrombocytopenia likely secondary to COVID
# Mild hyponatremia-Resolved. 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
# Lyme Screen positive-IgM negative. IgG from past infection.
# History of short-term memory loss/cognitive impairment
Still functional and works 5 days a week
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
# Hypertension-continue ramipril, metoprolol
# Right carotid: Extensive atherosclerotic disease with peak systolic velocity within the proximal ICA . Elevated end-diastolic velocity and ICA/CCA ratio compatible with a greater than 70% stenosis.
Wait for MRI
ASA, Hold statin while on Paxlovid.
May need Vascular eval as OP
# Hyperlipidemia-Hold statin while on Paxlovid.
# Ex-smoker
# DVT prophylaxis-Lovenox
D/W RN at bedside
Discussed with patient's on the phone in detail. All questions answered. Plan of care discussed.
Anticipated Discharge: > 48 hours
Subjective/Interval History
-
Date of Service: October 21, 2023
Objective Data
-
Labs:
Laboratory Results
10/21/23
06:00
Sodium Pending
Potassium Pending
Chloride Pending
Carbon Dioxide Pending
BUN Pending
Creatinine Pending
Glucose Pending
Calcium Pending
Vital Signs:
Vital Signs
Temp Pulse Resp BP Pulse Ox
98.2 F 59 20 174/61 91
10/21/23 07:50 10/21/23 06:10 10/21/23 06:04 10/21/23 06:10 10/21/23 06:04
I&O
10/20/23 10/21/23 10/22/23
06:59 06:59 06:59
Intake Total 2280 / 2280 200 / 200
Output Total 950 / 950 700 / 700
Balance 1330 / 1330 -500 / -500
[2023-10-21] MEDS: D5/0.9% SODIUM CHLORIDE 1000 IV ×2 (10:41→23:33)
[2023-10-21 11:11] LABS: Hematocrit 33.7 % (39.0-52.0); Hemoglobin 11.6 g/dL (13.0-18.0); Mean Corp Hgb Conc. 34.4 g/dL (33.0-37.0); Mean Corpuscular Hgb 33.4 pg (27.0-31.0); Mean Corpuscular Volume 97.1 fL (80.0-94.0); Mean Platelet Volume 10.3 fL (7.4-10.4); Platelet Count 161 10^3/uL (130-400); Red Blood Cell Count 3.47 10^6/uL (4.70-6.10); Red Cell Dist. Width 12.3 % (11.5-14.5); White Blood Cell Count 7.6 10^3/uL (4.8-10.8)
[2023-10-21 11:23] LABS: Blood Urea Nitrogen 16 mg/dl (9-20); Calcium 8.5 mg/dl (8.4-10.2); Carbon Dioxide 26 mmol/L (22-30); Chloride 112 mmol/L (98-107); Estimated Creatinine Clearance 79 ml/min; Glucose 112 mg/dl (70-99); Potassium 3.1 mmol/L (3.5-5.1); Sodium 144 mmol/L (135-145); eGFR > 60.00
[2023-10-21 12:20] LABS: Glucose - Point of Care 148 mg/dl (70-99)
--- NOTE | 2023-10-21 13:17 | CM ---
Patient with Dx COVID-19 infection, Possible UTI, TME, weakness/ataxia, Aspiration pneumonia. NPO. IVF. ST; dysphagia. Receiving Paxlovid, Risperdal. PT & OT on hold. Seen by Psych. Per nursing; confused, soft restraints, Medsitter in place.
Spoke with patient's Terese; discussed SNFs in [place] & [place] near [place] and provided additional SNF ratings. She is interested in [facility] as a possibility. She will research some SNFs over the weekend and may tour some
on Tuesday. Agree to hold off on making SNF referrals at this time.
Plan follow patient's mentation/behavior.
Plan follow up with for SNF choices.
[2023-10-21] MEDS: RISPERDAL M-TAB (ORALLY DISINTEGRATING) 0.25 MG PO ×3 (13:54→20:04)
--- NOTE | 2023-10-21 15:19 | W.PN.UPDATE ---
Update Note
Progress Note Update
patient seen chart reviewed spoke with dr rolon and nursing. the patient continues with delirium. he was muttering to himself when i attempted to speak to him. he is disoriented to place and time. he had been in restraints earlier although at
present he is not. he is not taking risperdal reliably. noted that only the prn is in the odt from and nursing cannot get him to swallow pills or liquids reliably. will switch all risperdal to odt from. noted patient has a new pulmonary infiltrate.
psych will look in on him over the weekend.
[2023-10-21] MEDS: KCL 270 MEQ IV (16:42)
[2023-10-21] MEDS: ALTACE 10 MG PO (17:53)
[2023-10-21] MEDS: LOVENOX 40 MG SC (17:54)
[2023-10-21] MEDS: TOPROL XL 100 MG PO (17:54)
[2023-10-21 18:05] LABS: Glucose - Point of Care 117 mg/dl (70-99)
[2023-10-21] MEDS: AUGMENTIN 875 MG/125 MG 1 TABLET PO (20:04)
[2023-10-21] MEDS: PAXLOVID 2X150 MG-100 MG DOSE PACK 1 DOSE PO (21:15)
--- NOTE | 2023-10-21 21:27 | PTCARENOTE ---
88% on room air- 2 liters oxygen placed- ax1- agitated restless - requires restraints to keep him safe- sinus afebrile- bp wnl- Ford draining yellow
[2023-10-21] MEDS: NOVOLOG FLEXPEN-LOW RESISTANCE 1 UNITS SC (23:42)
[2023-10-21 23:50] LABS: Glucose - Point of Care 154 mg/dl (70-99)
[2023-10-22] VITALS (17 sets, daily range): BP systolic 140–192; BP diastolic 56–145
--- NOTE | 2023-10-22 01:48 | PTCARENOTE ---
multiple attempts at mouthcare with varying degrees of cooperation and success- pt has a blue paste in his mouth that looks like it could be from denture paste. pt is very difficult to manage with this shift due to his confusion, agitation with
any care and is mostly uncooperative. prn psych meds given see mar-
[2023-10-22] MEDS: RISPERDAL M-TAB (ORALLY DISINTEGRATING) 0.25 MG PO ×5 (03:08→22:25)
[2023-10-22] MEDS: APRESOLINE 5 MG IV ×2 (04:30→20:21)
[2023-10-22 05:17] LABS: Hematocrit 34.6 % (39.0-52.0); Mean Corp Hgb Conc. 34.7 g/dL (33.0-37.0); Mean Corpuscular Hgb 33.7 pg (27.0-31.0); Mean Corpuscular Volume 97.2 fL (80.0-94.0); Mean Platelet Volume 10.2 fL (7.4-10.4); Platelet Count 185 10^3/uL (130-400); Red Blood Cell Count 3.56 10^6/uL (4.70-6.10); Red Cell Dist. Width 12.5 % (11.5-14.5); White Blood Cell Count 8.1 10^3/uL (4.8-10.8)
[2023-10-22 05:44] LABS: Blood Urea Nitrogen 16 mg/dl (9-20); Calcium 8.3 mg/dl (8.4-10.2); Chloride 114 mmol/L (98-107); Estimated Creatinine Clearance 79 ml/min; Glucose 168 mg/dl (70-99); Potassium 3.1 mmol/L (3.5-5.1); Sodium 145 mmol/L (135-145); eGFR > 60.00
[2023-10-22 05:55] LABS: Carbon Dioxide 25 mmol/L (22-30)
[2023-10-22] MEDS: NOVOLOG FLEXPEN-LOW RESISTANCE 1 UNITS SC ×2 (06:13→23:37)
[2023-10-22] MEDS: KCL 270 MEQ IV (06:13)
[2023-10-22 06:15] LABS: Magnesium 1.9 mg/dl (1.6-2.3)
[2023-10-22] MEDS: ASPIR LOW (ENTERIC COATED) 81 MG PO (07:30)
[2023-10-22] MEDS: VISBIOME 1 CAP PO (07:30)
[2023-10-22] MEDS: AUGMENTIN 875 MG/125 MG 1 TABLET PO (07:30)
[2023-10-22] MEDS: PAXLOVID 2X150 MG-100 MG DOSE PACK 1 DOSE PO ×2 (07:31→20:04)
[2023-10-22] MEDS: VITAMIN D3 (cholecalciferol) 100 MCG PO (07:31)
[2023-10-22] MEDS: GLUCOPHAGE 500 MG PO (07:31)
[2023-10-22] MEDS: THIAMINE INJECTION 200 MG IV (07:31)
--- NOTE | 2023-10-22 08:49 | W.PN.ID1 ---
Date of Service
Date of Service: October 22, 2023
Today's Communication
Continue antibiotics
Assessment / Plan
# Aspiration pneumonia due to decreased mental status
- Repeat CXR new bibasilar opacity compared to admission CXR
- Acute hypoxic insufficiency, decreasing oxygen requirement
- Patient previously transitioned to Augmentin, but because of increased somnolence has been transitioned back to Unasyn; continue through 10/25/2023.
- Aspiration precaution
# Symptomatic COVID infection
# Fever due to COVID, resolved
- Symptom onset 10/14 evening
- Admission CXR no PNA.
- Patient completing 5-day course of Paxlovid today.
- Continue isolation through 10/26/23.
# Encephalopathy
- likely due to COVID.
#Additional Past Medical History:
Mild dementia
Hypertension
Dyslipidemia
TIA
Left cerebellar chronic infarcts
Carotid stenosis s/p Left CEA
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
Prostate cancer status post prostatectomy
Heel, wrist and pelvis repair 1967
Chief Complaint
-: Pneumonia and Other (COVID)
Subjective / Review of Systems
Patient seen and examined. Discussed with nurse. Quite somnolent today.
Vital Signs / Physical Exam
Vital Signs
Vital Signs
Temp Pulse Resp BP Pulse Ox
97.8 F 77 34 161/59 91
10/22/23 04:00 10/22/23 06:15 10/22/23 06:15 10/22/23 06:15 10/22/23 06:15
Physical Exam
Constitutional: Comfortable, Chronically Ill and Non-toxic
Eyes: Sclera Anicteric
Pulmonary: Non Labored
Skin: Negative Rash or Jaundice
Objective Data
Lab Data
Lab Results
10/22/23 05:04
10/22/23 05:04
Estimated Creat Clear 79 ml/min 10/22/23 05:04
Total Bilirubin 0.7 mg/dl (0.2-1.3) 10/18/23 04:14
AST 50 U/L (17-59) 10/18/23 04:14
ALT 24 U/L (0-50) 10/18/23 04:14
Alkaline Phosphatase 37 U/L (38-126) L 10/18/23 04:14
Most recent labs reviewed.
Micro Results:
10/18/23 10:33 Blood Culture - Preliminary
Blood/Venous No Growth in 72 hours- Final report to follow
10/18/23 18:21 Urine Culture - Final
Urine NO GROWTH
10/16/23 12:56 Urine Culture - Final
Urine NO GROWTH
10/16/23 CXR: No acute cardiopulmonary process.
10/17/23 Vascular US: Right carotid: Extensive atherosclerotic disease with peak systolic velocity within the proximal ICA measuring 616 cm/s. Elevated end-diastolic velocity and ICA/CCA ratio compatible with a greater than 70% stenosis. Left
carotid: Mild calcified plaque/intimal thickening within the bulb proximal ICA causing less than 50% luminal narrowing.
10/18/23 CXR: There are new areas of airspace disease in both lower lobes, left greater than right. Findings suggest pneumonia.
10/19/23 Brain MRI: No acute intracranial abnormality. Prior small infarcts within the left cerebellar hemisphere, similar in appearance prior. Mucosal thickening with layering secretions in the right maxillary sinus.
--- NOTE | 2023-10-22 11:01 | W.PN.HOSP.TC ---
Today's Communication/Plan
-
Dietary consult for initiating TPN as he still remains n.p.o. per speech recommendations
Requested psychiatry to kindly adjust medicines for behavior/delirium
Antibiotics changed back to IV as he cannot take p.o.
Continue Paxlovid and other p.o. medicines as possible.
Assessment / Plan
Assessment / Plan
78-year-old male with fever and chills. Also had a runny nose. felt he was very unsteady when he got out of bed today. She made him come to the ER. He was found to be positive for COVID.Patient denied any shortness of breath or chest pain
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
CVS: S1-S2 normal
Chest: Coarse breath sounds bilaterally. Productive cough with yellow sputum
Abdomen: Soft, NT , Bowel sounds present
Extremities: No edema
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 Confused. Not interacting much today
MRI- No acute intracranial abnormality. Prior small infarcts within the left cerebellar hemisphere, similar in appearance prior.Mild atrophy with sequelae of mild small vessel ischemic disease.Mucosal thickening with layering secretions in the right
maxillary sinus. Recommend correlation for possible acute sinusitis.
# COVID-19 infection
Paxlovid to be continued
Suspect aspiration pneumonia-started Unasyn
Incentive spirometry to be continued
Aspiration precautions. Speech following.
# Fevers
Likely Covid, but also get blood CX
Treat aspiration pneumonia with Unasyn
# TME from Covid and also UTI
Delirium-worse than yesterday. He was slightly better yesterday
On risperidone as needed. Does not seem to be working. I have reached out to psychiatry to see if we can change meds.
She states that he normally has sundowning at home where he is confused and has short-term memory loss towards the evening hours and he sleeps poorly and wakes up at 4:00 in the morning. He works..
Likely cognitive dysfunction at baseline and delirium because of hospital admission and sickness.
# Reported weakness/ataxia
History of TIA and chronic cerebellar infarcts
Left carotid stenosis status post CEA
Right carotid: Extensive atherosclerotic disease with peak systolic velocity within the proximal ICA . Elevated end-diastolic velocity and ICA/CCA ratio compatible with a greater than 70% stenosis.
ASA, Hold statin while on Paxlovid.
Vascular eval as OP. aware
MRI with no new strokes
# Possible UTI with pyuria
Cultures negative
# Urinary retention-likely secondary to urethral stricture. Ford placed by urology. I spoke to Dr. Mtz yesterday. We can do voiding trial prior to discharge.
# Mild thrombocytopenia likely secondary to COVID
# Mild hyponatremia-Resolved. 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
# Lyme Screen positive-IgM negative. IgG from past infection.
# History of short-term memory loss/cognitive impairment
Still functional and works 5 days a week
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
# Hypertension-continue ramipril, metoprolol
# Hyperlipidemia-Hold statin while on Paxlovid.
# Nutrition-patient still did not clear for p.o. intake. He is agitated which will make it difficult to place Dobbhoff tube and maintain it. I will start TPN. Discussed with . Dietary consulted for recommendations
# Ex-smoker
# DVT prophylaxis-Lovenox
D/W RN at bedside
Discussed with patient's on the phone in detail. All questions answered. Plan of care discussed. She agrees for PICC line and TPN
Unfortunately patient still has not gotten out of bed yesterday despite orders.
Anticipated Discharge: > 48 hours
Subjective/Interval History
-
Date of Service: October 22, 2023
Objective Data
-
Labs:
Laboratory Results
10/22/23
05:04
WBC 8.1
Hgb 12.0 L
Hct 34.6 L
Plt Count 185
Sodium 145
Potassium 3.1 L
Chloride 114 H
Carbon Dioxide 25
BUN 16
Creatinine 0.5 L
Glucose 168 H
Calcium 8.3 L
Vital Signs:
Vital Signs
Temp Pulse Resp BP Pulse Ox
97.8 F 77 34 161/59 95
10/22/23 04:00 10/22/23 06:15 10/22/23 06:15 10/22/23 06:15 10/22/23 10:03
I&O
10/21/23 10/22/23 10/23/23
06:59 06:59 06:59
Intake Total 200 / 200 960 / 960
Output Total 700 / 700 1100 / 1100
Balance -500 / -500 -140 / -140
[2023-10-22] MEDS: UNASYN IV ×3 (11:49→23:37)
--- NOTE | 2023-10-22 12:08 | W.PN.URO.CBU ---
Today's Communication / Plan
-
keep goodwin
Assessment / Plan
-
keep goodwin until fully ambulatory
Diagnosis
-
Date of Service: October 22, 2023
-
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
Post Op Day:
Subjective
-
dementia
Objective
-
Vital Signs
Temp Pulse Resp BP Pulse Ox
97.8 F 77 34 161/59 95
10/22/23 04:00 10/22/23 06:15 10/22/23 06:15 10/22/23 06:15 10/22/23 10:03
Intake and Output
10/21/23 10/22/23 10/23/23
06:59 06:59 06:59
Intake Total 200 / 200 960 / 960
Output Total 700 / 700 1100 / 1100
Balance -500 / -500 -140 / -140
Intake:
Oral fluids 0 / 0
IV fluids (Total) 80 / 80 960 / 960
IV piggybacks 120 / 120
Output:
Urine, Goodwin 700 / 700 1100 / 1100
Laboratory Results
10/22/23 05:04
10/22/23 05:04
Review of Systems
-
Unable to obtain full review of systems at this time due to: Dementia
Physical Exam
-
General - well developed, well nourished, no acute distress
Chest - clear bilaterally
Abdomen - soft, non-tender, positive bowel sounds, no CVAT, no incisional pain or distention
Genitalia - normal
Rectal - normal
Skin - warm & dry with no rash
Neuro - AOx3, no motor deficits
Extremities - no clubbing, no cyanosis, no edema
Incision - clean, dry
Dressing - clean, dry, intact
Care Review
Data Reviewed
Discussed with: Nursing
[2023-10-22] MEDS: NOVOLOG FLEXPEN-LOW RESISTANCE SC ×2 (12:17→18:18)
[2023-10-22 12:28] LABS: Glucose - Point of Care 125 mg/dl (70-99)
[2023-10-22] MEDS: D5/0.9% SODIUM CHLORIDE IV (13:42)
[2023-10-22] MEDS: NSS 1000 IV (15:57)
[2023-10-22 16:08] LABS: ALT (SGPT) 37 U/L (0-50); AST (SGOT) 47 U/L (17-59); Albumin 2.9 g/dl (3.5-5.0); Alkaline Phosphatase 68 U/L (38-126); Blood Urea Nitrogen 17 mg/dl (9-20); Calcium 8.7 mg/dl (8.4-10.2); Carbon Dioxide 23 mmol/L (22-30); Chloride 114 mmol/L (98-107); Estimated Creatinine Clearance 79 ml/min; Glucose 131 mg/dl (70-99); Magnesium 1.9 mg/dl (1.6-2.3); Phosphorus 2.6 mg/dl (2.5-4.5); Potassium 3.5 mmol/L (3.5-5.1); Sodium 145 mmol/L (135-145); Total Bilirubin 1.2 mg/dl (0.2-1.3); Total Protein 5.2 g/dl (6.3-8.2); Triglycerides 98 mg/dl (10-149); eGFR > 60.00
--- NOTE | 2023-10-22 16:33 | W.PN.UPDATE ---
Update Note
Progress Note Update
Pt seen & evaluated by bedside, chart reviewed. Is sitting up in chair next to bed - unable to meaningfully answer my questions as his responses are disjointed. Not oriented. Was observed to talk to unseen persons while I was there. Remains
intermittently agitated and difficult to redirect, has needed wrist restraints.
Increase risperidone to 0.5mg BID + 0.25mg Q6H PRN
[2023-10-22] MEDS: TOPROL XL 100 MG PO (17:13)
[2023-10-22] MEDS: LOVENOX 40 MG SC (17:14)
[2023-10-22] MEDS: ALTACE 10 MG PO (17:14)
--- NOTE | 2023-10-22 18:24 | PTCARENOTE ---
PICC line placed in right arm. Contacted hospitalist cross-coverage, Dr Martin Mahmood, to read xray. Okay to use PICC line - fluids and Abx started. To prerna vance
[2023-10-22 18:29] LABS: Glucose - Point of Care 135 mg/dl (70-99)
[2023-10-22] MEDS: Parenteral Nutrition, Central 880 IV (19:51)
--- NOTE | 2023-10-22 20:30 | PTCARENOTE ---
Received patient at 1900. Pt. currently in bed. Pt. is confused and combative. Attempting to hit staff. Restraints in place per order. Pt. redirected. Calming voice used. Pt. denies pain/discomfort at this time. Afebrile. Heart rhythm sinus. Pt. is
hypertensive, PRN medication given, see MAR. Currently on 2L nasal cannula. Lungs sound diminished. NPO. TPN started tonight via PICC line. Ford catheter in place per order, draining without issue. Skin as documented. Discussed plan of care. Vital
signs stable at this time.
[2023-10-22] MEDS: LOPRESSOR 5 MG IV (22:25)
[2023-10-22 23:47] LABS: Glucose - Point of Care 188 mg/dl (70-99)
[2023-10-23] VITALS (14 sets, daily range): BP systolic 124–210; BP diastolic 47–117; BMI 20.6
[2023-10-23] MEDS: APRESOLINE 5 MG IV ×3 (04:33→20:08)
[2023-10-23 04:55] LABS: Ionized Calcium 1.12 mMOL/L (1.15-1.33)
[2023-10-23 05:11] LABS: Hemoglobin 12.6 g/dL (13.0-18.0); Mean Corp Hgb Conc. 34.1 g/dL (33.0-37.0); Mean Corpuscular Hgb 33.9 pg (27.0-31.0); Mean Corpuscular Volume 99.5 fL (80.0-94.0); Platelet Count 223 10^3/uL (130-400); Red Blood Cell Count 3.72 10^6/uL (4.70-6.10); Red Cell Dist. Width 12.6 % (11.5-14.5); White Blood Cell Count 9.8 10^3/uL (4.8-10.8)
[2023-10-23 05:39] LABS: ALT (SGPT) 34 U/L (0-50); AST (SGOT) 39 U/L (17-59); Albumin 2.9 g/dl (3.5-5.0); Alkaline Phosphatase 64 U/L (38-126); Blood Urea Nitrogen 21 mg/dl (9-20); Carbon Dioxide 24 mmol/L (22-30); Chloride 115 mmol/L (98-107); Direct Bilirubin 0.2 mg/dl (0.0-0.4); Estimated Creatinine Clearance 79 ml/min; Glucose 145 mg/dl (70-99); Magnesium 2.2 mg/dl (1.6-2.3); Phosphorus 3.1 mg/dl (2.5-4.5); Potassium 3.5 mmol/L (3.5-5.1); Sodium 145 mmol/L (135-145); Total Protein 5.2 g/dl (6.3-8.2); eGFR > 60.00
[2023-10-23] MEDS: NOVOLOG FLEXPEN-LOW RESISTANCE SC ×2 (05:40→17:22)
[2023-10-23] MEDS: UNASYN IV ×4 (05:46→23:40)
--- NOTE | 2023-10-23 09:36 | W.PN.ID1 ---
Date of Service
Date of Service: October 23, 2023
Today's Communication
Continue abx.
Assessment / Plan
# Aspiration pneumonia due to decreased mental status
- Repeat CXR new bibasilar opacity compared to admission CXR
- Acute hypoxic insufficiency, decreasing oxygen requirement
- Patient previously transitioned to Augmentin, but because of increased somnolence has been transitioned back to Unasyn; continue through 10/25/2023.
- Aspiration precaution
# Symptomatic COVID infection
- Patient s/p 5-day course of Paxlovid
# Fever due to COVID, resolved
- Symptom onset 10/14 evening
- Admission CXR no PNA.
- Continue isolation through 10/26/23.
# Encephalopathy
- likely due to COVID.
#Additional Past Medical History:
Mild dementia
Hypertension
Dyslipidemia
TIA
Left cerebellar chronic infarcts
Carotid stenosis s/p Left CEA
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
Prostate cancer status post prostatectomy
Heel, wrist and pelvis repair 1967
Chief Complaint
-: Pneumonia and Other (COVID-19)
Subjective / Review of Systems
Review of Systems: No Fever
Vital Signs / Physical Exam
Vital Signs
Vital Signs
Temp Pulse Resp BP Pulse Ox
97.9 F 56 13 124/74 100
10/23/23 07:23 10/23/23 06:00 10/23/23 06:00 10/23/23 06:00 10/23/23 06:00
Physical Exam
Constitutional: Chronically Ill and Non-toxic
Pulmonary: Non Labored
Gastrointestinal: Non Distended
Psychological: Calm
Objective Data
Lab Data
Lab Results
10/23/23 04:47
10/23/23 04:47
Estimated Creat Clear 79 ml/min 10/23/23 04:47
Total Bilirubin 1.0 mg/dl (0.2-1.3) 10/23/23 04:47
AST 39 U/L (17-59) 10/23/23 04:47
ALT 34 U/L (0-50) 10/23/23 04:47
Alkaline Phosphatase 64 U/L (38-126) 10/23/23 04:47
Most recent labs reviewed.
Micro Results:
10/18/23 10:33 Blood Culture - Preliminary
Blood/Venous No Growth in 4 days- Final report to follow
10/18/23 18:21 Urine Culture - Final
Urine NO GROWTH
10/16/23 12:56 Urine Culture - Final
Urine NO GROWTH
10/22/2023 CXR (portable): Moderate opacification of the right infrahilar region and mid right lower lung field concerning for developing pneumonia. A tiny left pleural effusion is noted. No pneumothorax seen.
10/16/23 CXR: No acute cardiopulmonary process.
10/17/23 Vascular US: Right carotid: Extensive atherosclerotic disease with peak systolic velocity within the proximal ICA measuring 616 cm/s. Elevated end-diastolic velocity and ICA/CCA ratio compatible with a greater than 70% stenosis. Left
carotid: Mild calcified plaque/intimal thickening within the bulb proximal ICA causing less than 50% luminal narrowing.
10/18/23 CXR: There are new areas of airspace disease in both lower lobes, left greater than right. Findings suggest pneumonia.
10/19/23 Brain MRI: No acute intracranial abnormality. Prior small infarcts within the left cerebellar hemisphere, similar in appearance prior. Mucosal thickening with layering secretions in the right maxillary sinus.
[2023-10-23] MEDS: VISBIOME PO (09:41)
[2023-10-23] MEDS: VITAMIN D3 (cholecalciferol) PO (09:41)
[2023-10-23] MEDS: RISPERDAL M-TAB (ORALLY DISINTEGRATING) PO (10:01)
[2023-10-23] MEDS: THIAMINE INJECTION 200 MG IV (10:02)
[2023-10-23] MEDS: ASPIR LOW (ENTERIC COATED) 81 MG PO (10:04)
--- NOTE | 2023-10-23 10:22 | W.PN.HOSP.TC ---
Addendum entered and electronically signed by Cassandra Miles MD 10/23/23 11:35:
Called again - went to message . Please call and update tomorrow
Original Note:
Today's Communication/Plan
-
Unfortunately he still remains confused.
Speech to follow and evaluate for p.o. but does not look like today he may be able to.
I have ordered an EEG and also requested neurology to kindly take a look today to see if there is a concern for seizures.
Continue IV antibiotics for aspiration pneumonia
Assessment / Plan
Assessment / Plan
78-year-old male with fever and chills. Also had a runny nose. felt he was very unsteady when he got out of bed today. She made him come to the ER. He was found to be positive for COVID.Patient denied any shortness of breath or chest pain
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
CVS: S1-S2 normal
Chest: Coarse breath sounds bilaterally. Productive cough with yellow sputum
Abdomen: Soft, NT , Bowel sounds present
Extremities: No edema
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 Very Confused. Not interacting much today
MRI- No acute intracranial abnormality. Prior small infarcts within the left cerebellar hemisphere, similar in appearance prior.Mild atrophy with sequelae of mild small vessel ischemic disease.Mucosal thickening with layering secretions in the right
maxillary sinus. Recommend correlation for possible acute sinusitis.
# COVID-19 infection
Completed Paxlovid
Suspect aspiration pneumonia-started Unasyn
Incentive spirometry to be continued
Aspiration precautions. Speech following.
# Fevers
Likely Covid,Blood CX neg
Treat aspiration pneumonia with Unasyn
# TME from Covid and also UTI
Delirium-worse than Tuesday.
On risperidone as needed. Does not seem to be working. I have reached out to psychiatry to see if we can change meds.
She states that he normally has sundowning at home where he is confused and has short-term memory loss towards the evening hours and he sleeps poorly and wakes up at 4:00 in the morning. He works..
Likely cognitive dysfunction at baseline and delirium because of hospital admission and sickness.
I will also get an EEG for completion
Psychiatry increase the dose of risperidone
I have also requested neurology to kindly take a look again today.
# Reported weakness/ataxia
History of TIA and chronic cerebellar infarcts
Left carotid stenosis status post CEA
Right carotid: Extensive atherosclerotic disease with peak systolic velocity within the proximal ICA . Elevated end-diastolic velocity and ICA/CCA ratio compatible with a greater than 70% stenosis.
ASA, statin
Vascular eval as OP. aware
MRI with no new strokes
# Possible UTI with pyuria
Cultures negative
# Urinary retention-likely secondary to urethral stricture. Ford placed by urology. I spoke to Dr. Mtz . We can do voiding trial prior to discharge.
# Mild thrombocytopenia likely secondary to COVID
# Mild hyponatremia-Resolved. 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
# Lyme Screen positive-IgM negative. IgG from past infection.
# History of short-term memory loss/cognitive impairment
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
# Hypertension-continue ramipril, metoprolol
# Pre DM - with TPN sugars higher,. Added Short term NovoLog. Do not anticipate needs when he goes home. Hold Metformin.
# Hyperlipidemia-statin
# Nutrition-patient still did not clear for p.o. intake. He is agitated which will make it difficult to place Dobbhoff tube and maintain it. TPN started. Will continue same order as yesterday.
# Ex-smoker
# DVT prophylaxis-Lovenox
D/W RN at bedside
D/w Neuro
D/W ID
Called patient's Terese [phone] Left message
OOB to [facility] [place] daily.
Anticipated Discharge: > 48 hours
Subjective/Interval History
-
Date of Service: October 23, 2023
Objective Data
-
Labs:
Laboratory Results
10/23/23
04:47
WBC 9.8
Hgb 12.6 L
Hct 37.0 L
Plt Count 223 D
Sodium 145
Potassium 3.5
Chloride 115 H
Carbon Dioxide 24
BUN 21 H
Creatinine 0.5 L
Glucose 145 H
Calcium 9.0
Total Bilirubin 1.0
AST 39
ALT 34
Alkaline Phosphatase 64
Vital Signs:
Vital Signs
Temp Pulse Resp BP Pulse Ox
97.9 F 56 13 124/74 100
10/23/23 07:23 10/23/23 06:00 10/23/23 06:00 10/23/23 06:00 10/23/23 06:00
I&O
10/22/23 10/23/23 10/24/23
06:59 06:59 06:59
Intake Total 960 / 960 610 / 610
Output Total 1100 / 1100 1150 / 1150
Balance -140 / -140 -540 / -540
--- NOTE | 2023-10-23 11:08 | W.PN.NEURO.1 ---
Today's Communication / Plan
-
Outpatient neuropsychological testing
May discontinue additional thiamine
Clear benefit from additional testing including EEG lumbar puncture at this time
Neuro Assessment/Plan
Assessment
78 man presenting with generalized weakness and confusion found to have COVID-19.
Known high-grade carotid stenosis on the right internal carotid
Nonfocal neurologic examination not highly suggestive of a right sided symptomatic carotid
Symptomatic COVID most likely is contributing to his confusion with toxic metabolic encephalopathy, most likely with baseline of dementia
Plan
Outpatient neuropsychological testing
May discontinue additional thiamine
Clear benefit from additional testing including EEG lumbar puncture at this time
Will follow as needed.
Subjective/Objective
Subjective Data
Date of Service: October 23, 2023
Patient unable to provide his own medical history
Objective Data
Vital Signs
Temp Pulse Resp BP Pulse Ox
36.6 C 65 19 138/81 96
10/23/23 07:23 10/23/23 10:00 10/23/23 10:00 10/23/23 10:00 10/23/23 10:46
Lab Results
10/23/23 04:47
10/23/23 04:47
Sodium 145 mmol/L (135-145) 10/23/23 04:47
Potassium 3.5 mmol/L (3.5-5.1) 10/23/23 04:47
BUN 21 mg/dl (9-20) H 10/23/23 04:47
Glucose 145 mg/dl (70-99) H 10/23/23 04:47
Calcium 9.0 mg/dl (8.4-10.2) 10/23/23 04:47
Phosphorus 3.1 mg/dl (2.5-4.5) 10/23/23 04:47
LDL Cholesterol, Calc 36 mg/dl 10/18/23 04:14
Vitamin B12 494 pg/ml (239-931) 10/18/23 04:14
Patient Allergies
Sulfa (Sulfonamide Antibiotics) Allergy (Verified 08/28/18 06:05)
Unknown
Review of Systems
-
Unable to obtain full review of systems at this time due to: Dementia
History Source: Patient
All other systems: Reviewed and negative
Physical Exam
-
General: No Apparent Distress and Appears Stated Age
Eyes: Round OU, [place] Conjunctivae and No Ptosis
HEENT: Anicteric and Moist Mucous Membranes
Neck: Full Range of Motion
Respiratory: No Dyspnea
Cardiac: No JVD
GI: Non-distended
Skin: Unremarkable
Extremities: No Clubbing, No Cyanosis and No Edema
Psych: Intact Judgement/Insight
Extended Neurological Exam
Mood & Affect: Mood Unremarkable and Affect Unremarkable
Attention Span & Concentration: Awake, Alert, Interactive and Unable to Perform 2 Step Request
Memory: Reduced (for current location) and Unable to Recall Personal History
Tremor: Hand Tremor Absent and Head Tremor Absent
Speech: Quality Unremarkable and Quantity Unremarkable
Cranial Nerve II: Left Eye: Pupillary Size Unremarkable and Visual Michael Intact
Cranial Nerve II: Right Eye: Pupillary Size Unremarkable and Visual Michael Intact
Cranial Nerves III, IV, : Extraocular Movement: Extraocular Movement Full in all Directions
Cranial Nerve VII: Facial Symmetry: Normal Facial Symmetry
Cranial Nerve VIII: Hearing: Unremarkable Hearing to Normal Conversational Volume
Muscle Strength, Overall: Spontaneously Moves
Muscle Bulk & Tone: Bulk Unremarkable and Tone Unremarkable
Pronator Drift: Unable to Assess
Cold Sensation: Unable to Assess
Vibration Sensation: Unable to Assess
Touch Sensation: Unremarkable
Coordination: Reaches for Objects without Difficulty
Gait & Station: Unable to Assess
Past History
Past History
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
stenosis 65% in 2018, proximal left vertebral artery occlusion)
ED Past Surgical History: Orthopedic (left wrist surgery, left foot surgery) and Other (left carotid endarterectomy, prostatectomy)
Social History
Tobacco: Former smoker
Alcohol: Occasional
Personal: Partner
Living: with family
Employment: Other (continues to work)
Family History
Family History: Other (reviewed and noncontributory)
Medications
-
Medications:
Generic Name Dose Route Start Last Admin
Trade Name Freq PRN Reason Stop Dose Admin
Acetaminophen 650 mg 10/16/23 18:00 10/18/23 20:38
Acetaminophen 325 Mg Tablet PO 11/13/23 17:59 650 mg
Q6HPRN PRN Administration
mild pain/ fever>100.5F
Acetaminophen 650 mg 10/17/23 18:15 10/18/23 13:45
Acetaminophen 650 Mg Rectal Suppository RECTAL 11/14/23 18:14 650 mg
Q6HPRN PRN Administration
mild pain or fever > 100.4
Aspirin 81 mg 10/17/23 08:00 10/23/23 10:04
Aspirin 81 Mg (Enteric Coated) Tablet PO 11/14/23 07:59 81 mg
DAILY ELMER Administration
Atorvastatin Calcium 40 mg 10/16/23 18:00 10/17/23 20:51
Atorvastatin (Lipitor) 40 Mg Tablet PO 11/13/23 17:59 Not Given
QPM ELMER
Cholecalciferol 100 mcg 10/17/23 08:00 10/23/23 09:41
Cholecalciferol (Vitamin D3) 50 Mcg Tablet (2,000 Units) PO 11/14/23 07:59 Not Given
DAILY ELMER
Dextrose 12.5 grams 10/16/23 15:39
Dextrose 50% (0.5 Grams/Ml) 50 Ml Syringe IV 11/13/23 15:38
[id number] PRN
hypoglycemia
Protocol
Enoxaparin Sodium 40 mg 10/16/23 18:00 10/22/23 17:14
Enoxaparin Sodium 40 Mg/0.4 Ml Syringe SC 11/13/23 17:59 40 mg
QPM ELMER Administration
Glucagon 1 mg 10/16/23 15:39
Glucagon 1 Mg Vial IM 11/13/23 15:38
PRN PRN
hypoglycemia
Protocol
Hydralazine HCl 5 mg 10/17/23 15:43 10/23/23 04:33
Hydralazine 20 Mg/Ml Vial IV 11/14/23 15:42 5 mg
Q6HPRN PRN Administration
SBP over 160 mm Hg
Ampicillin Sodium/Sulbactam 120 mls @ 240 mls/hr 10/22/23 12:00 10/23/23 05:46
Sodium 3 gm/ Sodium Chloride IV 120 mls
Q6H ELMER Administration
Nutrition (Parenteral) 880 ml in 880 mls @ 37 mls/hr 10/22/23 21:00 10/22/23 19:51
Parenteral Nutrition, Central IV 10/23/23 20:59 880 mls
ONCE@2100 NR Administration
Protocol
Per Protocol
Sodium Chloride 1,000 mls @ 50 mls/hr 10/22/23 12:30 10/22/23 15:57
Nss IV 1,000 mls
.Q20H ELMER Administration
Nutrition (Parenteral) 1 ml in 1 mls @ 0 mls/hr 10/23/23 21:00
Parenteral Nutrition, Central IV 10/24/23 20:59
ONCE@2100 NR
Protocol
Per Protocol
Insulin Aspart 0 units 10/18/23 00:00 10/23/23 05:40
Insulin Aspart Low Resistance 300 Units/3 Ml Pen.Injctr SC 11/15/23 00:00 Not Given
Q6 ELMER
Protocol
Insulin Aspart 3 units 10/23/23 09:42
Insulin Aspart (100 Units/Ml) 3 Ml Flexpen SC 11/20/23 08:59
Q6 ELMER
Lactobacillus/Bifidobacterium 1 cap 10/17/23 08:00 10/23/23 09:41
Lactobac/Bifidobac (Visbiome) PO 11/14/23 07:59 Not Given
DAILY ELMER
Metoprolol Succinate 100 mg 10/16/23 18:00 10/22/23 17:13
Metoprolol 100 Mg Extended Release Tablet PO 11/13/23 17:59 100 mg
QPM ELMER Administration
Metoprolol Tartrate 5 mg 10/17/23 21:05 10/22/23 22:25
Metoprolol 5 Mg/5 Ml Vial IV 11/14/23 21:04 5 mg
Q6HPRN PRN Administration
HR >100
Ramipril 10 mg 10/16/23 18:00 10/22/23 17:14
Ramipril (Altace) 10 Mg Capsule PO 11/13/23 17:59 10 mg
QPM ELMER Administration
Risperidone 0.25 mg 10/21/23 15:23 10/22/23 22:25
Risperidone 0.5 Mg Orally Disintegrating Tablet PO 11/14/23 14:16 0.25 mg
Q6HPRN PRN Administration
agitation
Risperidone 0.5 mg 10/22/23 16:35 10/23/23 10:01
Risperidone 0.5 Mg Orally Disintegrating Tablet PO 11/18/23 15:59 Not Given
BID@0800,1600 ELMER
Sodium Chloride 0 flush 10/16/23 16:00
Sodium Chloride 0.9% (Flush) Syringe IV 11/13/23 15:59
PER PROTOCOL ELMER
Thiamine HCl 200 mg 10/17/23 16:00 10/23/23 10:02
Thiamine (100 Mg/Ml) 2 Ml Vial IV 11/14/23 15:59 200 mg
DAILY ELMER Administration
--- NOTE | 2023-10-23 11:28 | PTCARENOTE ---
Pt received from sugar coating hand. Aox1, self only. Pt initially pleasantly confused and in a good mood. Pt then becoming more agitated and angry. Pt threatening to stab another RN. B/L soft wrist restraints remain in place for pt and staff safety.
[2023-10-23] MEDS: NSS 1000 IV ×2 (11:41→20:00)
[2023-10-23] MEDS: NOVOLOG FLEXPEN 3 UNITS SC ×2 (12:42→17:19)
[2023-10-23 12:43] LABS: Glucose - Point of Care 158 mg/dl (70-99)
[2023-10-23] MEDS: NOVOLOG FLEXPEN-LOW RESISTANCE 1 UNITS SC (12:43)
--- NOTE | 2023-10-23 12:56 | W.PN.URO.CBU ---
Today's Communication / Plan
-
no gu changes
Assessment / Plan
-
keep goodwin until fully ambulatory
Diagnosis
-
Date of Service: October 23, 2023
-
Patient Diagnosis:
Post Op Day:
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
Post Op Day:
Subjective
-
not oriented
Objective
-
Vital Signs
Temp Pulse Resp BP Pulse Ox
98.0 F 90 19 186/88 96
10/23/23 11:51 10/23/23 12:39 10/23/23 12:39 10/23/23 12:41 10/23/23 12:39
Intake and Output
10/22/23 10/23/23 10/24/23
06:59 06:59 06:59
Intake Total 960 / 960 610 / 610
Output Total 1100 / 1100 1150 / 1150
Balance -140 / -140 -540 / -540
Intake:
Oral fluids 0 / 0
IV fluids (Total) 960 / 960
IV piggybacks 240 / 240
TPN/PPN 370 / 370
Output:
Urine, Goodwin 1100 / 1100 1150 / 1150
Laboratory Results
10/23/23 04:47
10/23/23 04:47
Review of Systems
-
Unable to obtain full review of systems at this time due to: Dementia
Physical Exam
-
General - well developed, well nourished, no acute distress
Chest - clear bilaterally
Abdomen - soft, non-tender, positive bowel sounds, no CVAT, no incisional pain or distention
Genitalia - normal
Rectal - normal
Skin - warm & dry with no rash
Neuro - AOx3, no motor deficits
Extremities - no clubbing, no cyanosis, no edema
Incision - clean, dry
Dressing - clean, dry, intact
Care Review
Data Reviewed
Discussed with: Nursing
[2023-10-23] MEDS: RISPERDAL M-TAB (ORALLY DISINTEGRATING) 0.5 MG PO ×2 (16:27→20:00)
--- NOTE | 2023-10-23 16:54 | PTCARENOTE ---
Addendum entered by Matilda Lantigua 10/23/23 17:26:
Pt now attempting to pull goodwin out with his feet and attempting to escape mitts. Dr. Miles notified. Order received for one time dose of PRN Ativan; administered as ordered- see MAR.
Original Note:
Pt increasingly agitated and attempting to pull out goodwin. Multiple attempts to reorient pt unsuccessful. TT to Dr. Miles, order received for b/l mitts in addition to soft limb restraints. Mitts applied as ordered. Pt remains agitated. Medsitter
observation continues.
--- NOTE | 2023-10-23 16:56 | W.PN.UPDATE ---
Update Note
Progress Note Update
Pt seen & evaluated by bedside, chart reviewed. Is laying in bed with soft restraints, was threatening to stab staff earlier. Remains intermittently agitated and angry. Not oriented. Is currently upset that he is NPO however is unable to participate
in a meaningful discussion of why he is NPO, becomes confused and angry rather quickly and tells me to leave.
Increase risperidone to 0.5mg TID as he seems to be more agitated starting from early afternoon on + 0.25mg Q6H PRN
[2023-10-23] MEDS: ATIVAN 0.25 MG IV (17:11)
[2023-10-23] MEDS: NSS (PRESERVATIVE FREE) 0.125 ML IV (17:11)
[2023-10-23] MEDS: LIPITOR PO (17:13)
[2023-10-23] MEDS: ALTACE PO (17:13)
[2023-10-23] MEDS: LOVENOX 40 MG SC (17:18)
[2023-10-23] MEDS: TOPROL XL PO (17:22)
[2023-10-23 17:29] LABS: Glucose - Point of Care 147 mg/dl (70-99)
[2023-10-23] MEDS: Parenteral Nutrition, Central 880 IV (20:06)
--- NOTE | 2023-10-23 20:30 | PTCARENOTE ---
rec'd patient. COVID precautions. assessment as documented. confused, restless in bed. b/l soft wrist restraints and b/l mitts in place. medsitter in place. unable to reorient. SR on monitor. on 4L NC, denies SOB. pt with excessive throat
clearing/secretions. oral care and suction provided. goodwin in place, goodwin care done. TPN and IVF infusing through PICC. PRN hydralazine given for SBP >160, see MAR. care ongoing.
[2023-10-23] MEDS: LOPRESSOR 5 MG IV (22:08)
[2023-10-23] MEDS: RISPERDAL M-TAB (ORALLY DISINTEGRATING) 0.25 MG PO (23:39)
[2023-10-24] VITALS (27 sets, daily range): BP systolic 139–209; BP diastolic 76–194; O2SAT 95; BMI 21.2
[2023-10-24] MEDS: NOVOLOG FLEXPEN 3 UNITS SC ×4 (00:01→17:01)
[2023-10-24 00:10] LABS: Glucose - Point of Care 156 mg/dl (70-99)
[2023-10-24] MEDS: APRESOLINE 5 MG IV ×2 (03:45→11:46)
[2023-10-24 04:07] LABS: Ionized Calcium 1.12 mMOL/L (1.15-1.33)
[2023-10-24] MEDS: LOPRESSOR 5 MG IV (04:09)
--- NOTE | 2023-10-24 04:23 | PTCARENOTE ---
Pt continues to be agitated,uncooperative,but at times pt will have a conversation regarding his family,or his care,he asked about his BP,and the current numbers.He was cooperative only for a short period for mouth care. Pt constantly moving,arms
and legs,bilat wrists restraints and mitts.TPN infusion maintained at 37mls hour.Medsitter maintained,Covid precautions ongoing.
[2023-10-24 04:43] LABS: ALT (SGPT) 36 U/L (0-50); AST (SGOT) 47 U/L (17-59); Alkaline Phosphatase 62 U/L (38-126); Blood Urea Nitrogen 22 mg/dl (9-20); Calcium 8.8 mg/dl (8.4-10.2); Carbon Dioxide 26 mmol/L (22-30); Chloride 115 mmol/L (98-107); Direct Bilirubin 0.2 mg/dl (0.0-0.4); Estimated Creatinine Clearance 81 ml/min; Glucose 156 mg/dl (70-99); Magnesium 2.1 mg/dl (1.6-2.3); Phosphorus 3.4 mg/dl (2.5-4.5); Potassium 3.6 mmol/L (3.5-5.1); Sodium 148 mmol/L (135-145); Total Protein 5.3 g/dl (6.3-8.2); Triglycerides 101 mg/dl (10-149); eGFR > 60.00
[2023-10-24] MEDS: NOVOLOG FLEXPEN-LOW RESISTANCE SC (05:53)
[2023-10-24] MEDS: UNASYN IV ×4 (05:55→23:55)
[2023-10-24 06:03] LABS: Glucose - Point of Care 142 mg/dl (70-99)
--- NOTE | 2023-10-24 07:00 | W.PN.HOSP.TC ---
Today's Communication/Plan
-
Adjust TPN
EKG later today
c/w Risperdal
c/w Unasyn
Assessment / Plan
Assessment / Plan
78-year-old male with fever and chills. Also had a runny nose. He was found to be positive for COVID. 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
Physical Exam
General: Restless and in restraints
HEENT: Normocephalic, Anicteric, dry mucous membranes.
Respiratory: limited, no wheezes.
Cardiac: S1/S2
GI: Soft, Non Tender, Non Distended.
Rectal: no bleeding
Genito-urinary:no hematuria
Musculoskeletal: No Clubbing, No Cyanosis and No Edema
Skin: Warm and Dry; No Rash
Neuro: Awake, confused.
Psych: + agitation.
MRI- No acute intracranial abnormality. Prior small infarcts within the left cerebellar hemisphere, similar in appearance prior.Mild atrophy with sequelae of mild small vessel ischemic disease.Mucosal thickening with layering secretions in the right
maxillary sinus. Recommend correlation for possible acute sinusitis.
#Acute hypoxic respiratory failure , on O2 at 3-4 liters, down to 2.5 L now
COVID-19 infection
Completed Paxlovid
Additional aspiration pneumonia-started Unasyn
Incentive spirometry to be continued
Aspiration precautions. Speech following.
# Fevers
Likely Covid,Blood CX neg
Treated aspiration pneumonia with Unasyn. continue through 10/25/2023.
# TME from Covid and also UTI
Delirium, seems agitated and confused this morning
On risperidone TID. Check EKG later today
Known to have sundowning at home, known short-term memory loss towards the evening hours. Hx of poor sleep at home.
Underlying cognitive dysfunction at baseline and delirium because of hospital admission and sickness.
Per neurology: Symptomatic COVID most likely is contributing to his confusion with toxic metabolic encephalopathy, most likely with baseline of dementia. May discontinue additional thiamine
Psychiatry increased the dose of risperidone
# Reported weakness/ataxia
History of TIA and chronic cerebellar infarcts
Left carotid stenosis status post CEA
Right carotid: Extensive atherosclerotic disease with peak systolic velocity within the proximal ICA . Elevated end-diastolic velocity and ICA/CCA ratio compatible with a greater than 70% stenosis.
ASA, statin
Vascular eval as OP. aware
MRI with no new strokes
# Hypokalemia, replaced
# Hypernatremia
Increase water in TF
# Possible UTI due to pyuria but Cultures negative, already on Unasyn.
# Urinary retention-likely secondary to urethral stricture. Ford placed by urology. I spoke to Dr. Mtz . We can do voiding trial prior to discharge.
# Mild thrombocytopenia likely secondary to COVID
# Mild hyponatremia-Resolved. 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
# Lyme Screen positive-IgM negative. IgG from past infection.
# History of short-term memory loss/cognitive impairment
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
#Essential Hypertension-continue ramipril, metoprolol
# Pre DM - with TPN sugars higher,. Added Short term NovoLog. Do not anticipate needs when he goes home. Hold Metformin.
# Hyperlipidemia-statin
# Nutrition-patient still did not clear for p.o. intake. He is agitated which will make it difficult to place Dobbhoff tube and maintain it. TPN started. 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
# Ex-smoker
# DVT prophylaxis-Lovenox
Called patient's Terese [phone] Left message
OOB to [facility] daily.
Total time spent to see the patient, examine the patient on the floor, review data and lab results, discuss treatment plan with patient, nursing staff around 55 minutes.
Anticipated Discharge: > 48 hours
Subjective/Interval History
-
Date of Service: October 24, 2023
Confused, agitated and with wrist restraints
Objective Data
-
Labs:
Laboratory Results
10/24/23
03:59
Sodium 148 H
Potassium 3.6
Chloride 115 H
Carbon Dioxide 26
BUN 22 H
Creatinine 0.5 L
Glucose 156 H
Calcium 8.8
Total Bilirubin 1.0
AST 47
ALT 36
Alkaline Phosphatase 62
Vital Signs:
Vital Signs
Temp Pulse Resp BP Pulse Ox
98.0 F 101 27 161/99 97
10/24/23 04:01 10/24/23 06:12 10/24/23 06:12 10/24/23 06:12 10/24/23 06:00
I&O
10/23/23 10/24/23 10/25/23
06:59 06:59 06:59
Intake Total 610 / 610 120 / 120
Output Total 1150 / 1150 1800 / 1800
Balance -540 / -540 -1680 / -1680
[2023-10-24] MEDS: ASPIR LOW (ENTERIC COATED) PO (07:03)
[2023-10-24] MEDS: VITAMIN D3 (cholecalciferol) PO (07:03)
[2023-10-24] MEDS: VISBIOME PO (07:03)
[2023-10-24] MEDS: RISPERDAL M-TAB (ORALLY DISINTEGRATING) 0.5 MG PO ×3 (07:39→21:30)
[2023-10-24] MEDS: TYLENOL/FEVERALL 650 MG RECTAL (07:39)
[2023-10-24] MEDS: THIAMINE INJECTION 200 MG IV (07:39)
--- NOTE | 2023-10-24 08:24 | PTCARENOTE ---
Addendum entered by Jany Chandler RN 10/24/23 12:01:
pt nsr to sinus tach with first degree block
Addendum entered by Jany Chandler RN 10/24/23 08:26:
pt restless in bed, turns self. foams applied to bony prominences
Original Note:
pt received from previous rn- aox1, able to follow commands and instructions, pt restrained for protective intervention. pt on med sitter, bed alarm on. pt educated about restraints and staying in bed, pt is able to be redirected at times. oral care
and full am provided. nsr to sinus tach on monitor, 4LNC. all safety precautions in place, bed alarm on.
--- NOTE | 2023-10-24 09:32 | W.PN.ID1 ---
Date of Service
Date of Service: October 24, 2023
Today's Communication
Continue Unasyn continue through 10/25/2023.
Assessment / Plan
# Aspiration pneumonia
- Acute hypoxic insufficiency
- Continue Unasyn continue through 10/25/2023.
- Aspiration precaution
# Symptomatic COVID infection
- Patient s/p 5-day course of Paxlovid
# Fever due to COVID, resolved
- Symptom onset 10/14 evening
- Admission CXR no PNA.
- Continue isolation through 10/26/23.
# Encephalopathy
#Additional Past Medical History:
Mild dementia
Hypertension
Dyslipidemia
TIA
Left cerebellar chronic infarcts
Carotid stenosis s/p Left CEA
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
Prostate cancer status post prostatectomy
Heel, wrist and pelvis repair 1967
Chief Complaint
-: Pneumonia and Other (COVID-19)
Subjective / Review of Systems
+ cough.
Vital Signs / Physical Exam
Vital Signs
Vital Signs
Temp Pulse Resp BP Pulse Ox
98.9 F 119 15 195/98 95
10/24/23 07:00 10/24/23 08:00 10/24/23 08:00 10/24/23 08:00 10/24/23 08:00
Physical Exam
Constitutional: Acutely Ill
Oropharyngeal: Other (dry mucous membrane)
Pulmonary: Rales (Right base) and Rhonchi
Gastrointestinal: Soft, Non Tender and Non Distended
Genito-Urinary: Ford and Clear Urine
Extremities: Negative Edema
Neurological: Awake
Psychological: Confused
Lines: PICC (RUE intact)
Objective Data
Lab Data
Lab Results
10/23/23 04:47
10/24/23 03:59
Estimated Creat Clear 81 ml/min 10/24/23 03:59
Total Bilirubin 1.0 mg/dl (0.2-1.3) 10/24/23 03:59
AST 47 U/L (17-59) 10/24/23 03:59
ALT 36 U/L (0-50) 10/24/23 03:59
Alkaline Phosphatase 62 U/L (38-126) 10/24/23 03:59
Most recent labs reviewed.
Micro Results:
10/18/23 10:33 Blood Culture - Final
Blood/Venous No Growth - Final Report
10/18/23 18:21 Urine Culture - Final
Urine NO GROWTH
10/16/23 12:56 Urine Culture - Final
Urine NO GROWTH
10/22/2023 CXR (portable): Moderate opacification of the right infrahilar region and mid right lower lung field concerning for developing pneumonia. A tiny left pleural effusion is noted. No pneumothorax seen.
10/16/23 CXR: No acute cardiopulmonary process.
10/17/23 Vascular US: Right carotid: Extensive atherosclerotic disease with peak systolic velocity within the proximal ICA measuring 616 cm/s. Elevated end-diastolic velocity and ICA/CCA ratio compatible with a greater than 70% stenosis. Left
carotid: Mild calcified plaque/intimal thickening within the bulb proximal ICA causing less than 50% luminal narrowing.
10/18/23 CXR: There are new areas of airspace disease in both lower lobes, left greater than right. Findings suggest pneumonia.
10/19/23 Brain MRI: No acute intracranial abnormality. Prior small infarcts within the left cerebellar hemisphere, similar in appearance prior. Mucosal thickening with layering secretions in the right maxillary sinus.
[2023-10-24] MEDS: NOVOLOG FLEXPEN-LOW RESISTANCE 1 UNITS SC ×3 (11:41→17:02)
[2023-10-24 11:51] LABS: Glucose - Point of Care 160 mg/dl (70-99)
--- NOTE | 2023-10-24 15:22 | W.PN.URO.CBU ---
Today's Communication / Plan
-
kep goodwin
Assessment / Plan
-
keep goodwin until fully ambulatory
Diagnosis
-
Date of Service: October 24, 2023
-
Patient Diagnosis:
Post Op Day:
Patient Diagnosis:
Post Op Day:
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
Post Op Day:
Subjective
-
non verbal
Objective
-
Vital Signs
Temp Pulse Resp BP Pulse Ox
98.3 F 113 21 174/87 94
10/24/23 15:00 10/24/23 14:00 10/24/23 14:00 10/24/23 13:00 10/24/23 12:36
Intake and Output
10/23/23 10/24/23 10/25/23
06:59 06:59 06:59
Intake Total 610 / 610 120 / 120
Output Total 1150 / 1150 1800 / 1800
Balance -540 / -540 -1680 / -1680
Intake:
IV piggybacks 240 / 240 120 / 120
TPN/PPN 370 / 370
Output:
Urine, Goodwin 1150 / 1150 1800 / 1800
Laboratory Results
10/23/23 04:47
10/24/23 03:59
Review of Systems
-
Unable to obtain full review of systems at this time due to: Dementia
Physical Exam
-
General - well developed, well nourished, no acute distress
Chest - clear bilaterally
Abdomen - soft, non-tender, positive bowel sounds, no CVAT, no incisional pain or distention
Genitalia - normal
Rectal - normal
Skin - warm & dry with no rash
Neuro - AOx3, no motor deficits
Extremities - no clubbing, no cyanosis, no edema
Incision - clean, dry
Dressing - clean, dry, intact
--- NOTE | 2023-10-24 15:23 | EEG.RPT ---
Electroencephalogram Report
Recording
Date of EE10/24/23
Type of EEG: Routine
Length of EEG recordin minutes
Done with Video Recording: Yes
Patient Status: Inpatient
Recording Conditions: Awake and Drowsy
Hyperventilation Performed: No
Photic Stimulation Performed: Yes
Report
LESS THAN 1 HOUR EEG REPORT
LESS THAN 1 HOUR EEG INTERPRETATION:
Moderately abnormal EEG for age in wakefulness through drowsiness due to diffuse bihemispheric slowing
CLINICAL CORRELATION:
This study was suggestive of diffuse cortical dysfunction without focal abnormality. In comparison with a study read by myself in 2018, there was no clear change. No seizures were recorded.
Clinical correlation is advised.
METHODS:
A 21 channel digitized electroencephalogram (EEG) was performed at the bedside. The 10/20 international system of electrode placement was used with ECG and lateral/vertical eye movements recorded. The Madrone system was utilized.
QUALITY OF STUDY:
Fair-poor due to muscle artifact which was nearly constant
ELECTROENCEPHALOGRAPHER IMPRESSION(S):
Background
Amplitude: Unremarkable
Anterior-Posterior Organization: Fair
Maximum: Theta
Asymmetry: None
Sleep
Drowsiness present
Photic Stimulation
Failed to activate the record
ECG
Normal sinus rhythm
--- NOTE | 2023-10-24 15:40 | PTCARENOTE ---
eeg completed. pt much more cooperative this afternoon. in to see pt- education provided- verbalized understanding. pt remains restrained for safety, on med sitter. hemoptysis noted and Dr. Bocanegra notified. frequent oral care provided.
[2023-10-24] MEDS: ALTACE 10 MG PO (16:39)
[2023-10-24] MEDS: LOPRESSOR 100 MG PO (16:39)
[2023-10-24] MEDS: LOVENOX 40 MG SC (16:39)
[2023-10-24 17:12] LABS: Glucose - Point of Care 157 mg/dl (70-99)
[2023-10-24] MEDS: RISPERDAL M-TAB (ORALLY DISINTEGRATING) 0.25 MG PO (18:50)
[2023-10-24] MEDS: Parenteral Nutrition, Central 1920 IV (20:28)
--- NOTE | 2023-10-24 20:41 | PTCARENOTE ---
Received pt at shift change restrained in bed for protective intervention. Pt AAOx1, confused, restless, agitated, angry and uncooperative; pt is combative, attempting to hit and kick RN's; unable to redirect pt. PRN Risperdal given by flory DANIEL,
see MAY. NSR with artifact on the monitor, as pt is tremulous/agitated. Pt tolerating 2L O2 NC with SpO2 97%. Remainder of assessment as documented. New TPN initiated at 80mL/hr per order, see MAR. Pt with dried blood to his lip, mouth and lip care
partially complete, pt attempting to swat hygiene care away. For pt safety, pt remains in restraints, neurovascularly intact, medsitter in place, bed alarm on.
[2023-10-25] VITALS (37 sets, daily range): BP systolic 143–200; BP diastolic 47–129; BMI 21.3
[2023-10-25] MEDS: NOVOLOG FLEXPEN 3 UNITS SC ×5 (00:01→23:46)
[2023-10-25] MEDS: NOVOLOG FLEXPEN-LOW RESISTANCE SC ×3 (00:05→17:09)
[2023-10-25 00:12] LABS: Glucose - Point of Care 142 mg/dl (70-99)
[2023-10-25] MEDS: RISPERDAL M-TAB (ORALLY DISINTEGRATING) 0.25 MG PO ×3 (02:14→17:01)
[2023-10-25] MEDS: APRESOLINE 5 MG IV ×2 (02:15→09:06)
--- NOTE | 2023-10-25 02:20 | PTCARENOTE ---
Pt continues with agitation and restlessness. Pt persistently throwing his legs over the side of the bed, yelling and cursing at staff when repositioned to a safe position in the bed, restraint education reinforced. PRN Risperdal given, see MAR. Pt
also with worsening hypertension during episodes of agitation, PRN Hydralazine given for BP support, see MAR. POC ongoing; pt remains restrained at this time secondary to safety concerns, medsitter and bed alarm in place.
[2023-10-25] MEDS: UNASYN IV ×4 (06:07→23:39)
[2023-10-25 06:18] LABS: Glucose - Point of Care 147 mg/dl (70-99)
--- NOTE | 2023-10-25 06:40 | W.PN.HOSP.TC ---
Today's Communication/Plan
-
EKG
Chest x ray
Change to IV BB< Rectal aspirin with NPO, c/w Risperdal SL for now.
Adjust TPN doses.
Assessment / Plan
Assessment / Plan
78-year-old male with fever and chills. Also had a runny nose. He was found to be positive for COVID. 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
Physical Exam
General: Restless and in restraints
HEENT: Normocephalic, Anicteric, dry mucous membranes.
Respiratory: limited, no wheezes.
Cardiac: S1/S2
GI: Soft, Non Tender, Non Distended.
Rectal: no bleeding
Genito-urinary:no hematuria
Musculoskeletal: No Clubbing, No Cyanosis and No Edema
Skin: Warm and Dry; No Rash
Neuro: Awake, confused.
Psych: + agitation.
MRI- No acute intracranial abnormality. Prior small infarcts within the left cerebellar hemisphere, similar in appearance prior.Mild atrophy with sequelae of mild small vessel ischemic disease.Mucosal thickening with layering secretions in the right
maxillary sinus. Recommend correlation for possible acute sinusitis.
#Acute hypoxic respiratory failure , on O2 at 3-4 liters, down to 2.5 L now
Recheck x ray of chest
COVID-19 infection
Completed Paxlovid
Additional aspiration pneumonia-started Unasyn
Incentive spirometry to be continued
Aspiration precautions. Speech following.
# Fevers
Likely Covid,Blood CX neg
Treated aspiration pneumonia with Unasyn. continue through 10/25/2023.
# TME from Covid and also UTI
Delirium, seems agitated and confused this morning
On risperidone TID. Check EKG today. d/w psych, to adjust dose of medicine,.
Known to have sundowning at home, known short-term memory loss towards the evening hours. Hx of poor sleep at home.
Underlying cognitive dysfunction at baseline and delirium because of hospital admission and sickness.
Per neurology: Symptomatic COVID most likely is contributing to his confusion with toxic metabolic encephalopathy, most likely with baseline of dementia. May discontinue additional thiamine
Psychiatry increased the dose of risperidone
# Reported weakness/ataxia
History of TIA and chronic cerebellar infarcts
Left carotid stenosis status post CEA
Right carotid: Extensive atherosclerotic disease with peak systolic velocity within the proximal ICA . Elevated end-diastolic velocity and ICA/CCA ratio compatible with a greater than 70% stenosis.
ASA, statin
Vascular eval as OP. aware
MRI with no new strokes
# Hypokalemia, replace in TPN
# Hypernatremia
Increase water in TF
# Possible UTI due to pyuria but Cultures negative, already on Unasyn.
# Urinary retention-likely secondary to urethral stricture. Ford placed by urology. I spoke to Dr. Mtz . We can do voiding trial prior to discharge.
# Mild thrombocytopenia likely secondary to COVID
# Mild hyponatremia-Resolved. 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
# Lyme Screen positive-IgM negative. IgG from past infection.
# History of short-term memory loss/cognitive impairment
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
#Essential Hypertension-continue ramipril, metoprolol
# Pre DM - with TPN sugars higher,. Added Short term NovoLog. BS reading are acceptable for now, I wont make changes today unless his BS around 200. Do not anticipate needs when he goes home. Hold Metformin.
# Hyperlipidemia-statin
# Nutrition-patient still did not clear for p.o. intake. He is agitated which will make it difficult to place Dobbhoff tube and maintain it. TPN started. Await CMP reading for today to make adjustments. appreciate pharmacy and deicer repairer
help
# Ex-smoker
# DVT prophylaxis-Lovenox
Called patient's Terese [phone] and d/w her the status. Also asked her to think about peg tube.
OOB to Ger[facility] daily.
Total time spent to see the patient, examine the patient on the floor, review data and lab results, discuss treatment plan with patient, nursing staff around 55 minutes.
Anticipated Discharge: > 48 hours
Subjective/Interval History
-
Date of Service: October 25, 2023
Still agitated
Objective Data
-
Vital Signs:
Vital Signs
Temp Pulse Resp BP Pulse Ox
98.4 F 90 18 146/74 97
10/25/23 03:03 10/25/23 06:11 10/25/23 06:11 10/25/23 06:11 10/25/23 06:11
I&O
10/23/23 10/24/23 10/25/23
06:59 06:59 06:59
Intake Total 610 / 610 120 / 120 1721 / 1721
Output Total 1150 / 1150 1800 / 1800 1800 / 1800
Balance -540 / -540 -1680 / -1680 -79 / -79
[2023-10-25] MEDS: ASPIR LOW (ENTERIC COATED) PO ×2 (08:56→09:02)
[2023-10-25] MEDS: RISPERDAL M-TAB (ORALLY DISINTEGRATING) PO ×2 (08:56→09:02)
[2023-10-25] MEDS: VISBIOME PO ×2 (08:56→09:02)
--- NOTE | 2023-10-25 09:02 | W.PN.URO.CBU ---
Today's Communication / Plan
-
keep goodwin
Assessment / Plan
-
keep goodwin until fully ambulatory
Diagnosis
-
Date of Service: October 25, 2023
-
Patient Diagnosis:
Post Op Day:
Patient Diagnosis:
Post Op Day:
Patient Diagnosis:
Post Op Day:
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
Post Op Day:
Subjective
-
altered m s
Objective
-
Vital Signs
Temp Pulse Resp BP Pulse Ox
98.4 F 90 18 146/74 97
10/25/23 03:03 10/25/23 06:11 10/25/23 06:11 10/25/23 06:11 10/25/23 06:11
Intake and Output
10/24/23 10/25/23 10/26/23
06:59 06:59 06:59
Intake Total 120 / 120 1721 / 1721
Output Total 1800 / 1800 1800 / 1800
Balance -1680 / -1680 -79 / -79
Intake:
IV piggybacks 120 / 120 440 / 440
TPN/PPN 1281 / 1281
Output:
Urine, Goodwin 1800 / 1800 1800 / 1800
Laboratory Results
10/23/23 04:47
Review of Systems
-
Unable to obtain full review of systems at this time due to: Dementia
Physical Exam
-
General - well developed, well nourished, no acute distress
Chest - clear bilaterally
Abdomen - soft, non-tender, positive bowel sounds, no CVAT, no incisional pain or distention
Genitalia - normal
Rectal - normal
Skin - warm & dry with no rash
Neuro - AOx3, no motor deficits
Extremities - no clubbing, no cyanosis, no edema
Incision - clean, dry
Dressing - clean, dry, intact
[2023-10-25] MEDS: RISPERDAL M-TAB (ORALLY DISINTEGRATING) 0.5 MG PO ×2 (09:16→16:41)
[2023-10-25 09:45] LABS: ALT (SGPT) 42 U/L (0-50); AST (SGOT) 50 U/L (17-59); Alkaline Phosphatase 63 U/L (38-126); Blood Urea Nitrogen 22 mg/dl (9-20); Calcium 8.8 mg/dl (8.4-10.2); Carbon Dioxide 30 mmol/L (22-30); Chloride 112 mmol/L (98-107); Estimated Creatinine Clearance 82 ml/min; Glucose 160 mg/dl (70-99); Potassium 3.3 mmol/L (3.5-5.1); Sodium 144 mmol/L (135-145); Total Bilirubin 0.8 mg/dl (0.2-1.3); Total Protein 5.2 g/dl (6.3-8.2); eGFR > 60.00
--- NOTE | 2023-10-25 10:03 | W.PN.UPDATE ---
Update Note
Progress Note Update
Chart reviewed and discussed with Dr. Bocanegra, patient currently on COVID precautions and remains confused/unable to offer any meaningful or additional information and therefore, did not enter room. He is currently asleep. was not currently at
bedside. Patient reportedly remains intermittently angry and agitated. Receiving PRN Risperdal in addition to standing doses. Restraints for safety remain.
Impression/recommendations: TME due to Covid-19 infection/UTI; History of unspecified cognitive impairment, intermittent agitation - would cautiously increase Risperdal as requested by Hospitalist, patient receiving PRN dose fairly consistently,
would use 0.5mg BID at 0800 and 1600 and then 1mg HS. Observe for any side effects, increased confusion, sedation, EPS, TD symptoms. Attempt to redirect and calm without medication when able.
--- NOTE | 2023-10-25 10:09 | W.PN.ID1 ---
Date of Service
Date of Service: October 25, 2023
Today's Communication
Continue Unasyn continue through today 10/25/2023.
Can dc COVID isolation on 10/27/23.
Assessment / Plan
# Aspiration pneumonia
- Acute hypoxic insufficiency - decreasing O2 requirement.
- Continue Unasyn continue through today 10/25/2023.
- Aspiration precaution
# Symptomatic COVID infection
- Patient s/p 5-day course of Paxlovid
# Fever due to COVID, resolved
- Symptom onset 10/14 evening
- Admission CXR no PNA.
- Continue isolation through 10/26/23.
# Encephalopathy
#Additional Past Medical History:
Mild dementia
Hypertension
Dyslipidemia
TIA
Left cerebellar chronic infarcts
Carotid stenosis s/p Left CEA
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
Prostate cancer status post prostatectomy
Heel, wrist and pelvis repair 1967
Chief Complaint
-: Pneumonia and Other (COVID-19)
Vital Signs / Physical Exam
Vital Signs
Vital Signs
Temp Pulse Resp BP Pulse Ox
98.4 F 90 18 146/74 97
10/25/23 03:03 10/25/23 06:11 10/25/23 06:11 10/25/23 06:11 10/25/23 06:11
Physical Exam
Constitutional: Acutely Ill
Pulmonary: Rales (Right base)
Gastrointestinal: Soft, Non Tender and Non Distended
Genito-Urinary: Ford and Clear Urine
Extremities: Negative Edema
Neurological: Awake
Lines: PICC (RUE intact)
Objective Data
Lab Data
Lab Results
10/23/23 04:47
10/25/23 08:54
Estimated Creat Clear 82 ml/min 10/25/23 08:54
Total Bilirubin 0.8 mg/dl (0.2-1.3) 10/25/23 08:54
AST 50 U/L (17-59) 10/25/23 08:54
ALT 42 U/L (0-50) 10/25/23 08:54
Alkaline Phosphatase 63 U/L (38-126) 10/25/23 08:54
Most recent labs reviewed.
Micro Results:
10/18/23 10:33 Blood Culture - Final
Blood/Venous No Growth - Final Report
10/18/23 18:21 Urine Culture - Final
Urine NO GROWTH
10/16/23 12:56 Urine Culture - Final
Urine NO GROWTH
10/22/2023 CXR (portable): Moderate opacification of the right infrahilar region and mid right lower lung field concerning for developing pneumonia. A tiny left pleural effusion is noted. No pneumothorax seen.
10/16/23 CXR: No acute cardiopulmonary process.
10/17/23 Vascular US: Right carotid: Extensive atherosclerotic disease with peak systolic velocity within the proximal ICA measuring 616 cm/s. Elevated end-diastolic velocity and ICA/CCA ratio compatible with a greater than 70% stenosis. Left
carotid: Mild calcified plaque/intimal thickening within the bulb proximal ICA causing less than 50% luminal narrowing.
10/18/23 CXR: There are new areas of airspace disease in both lower lobes, left greater than right. Findings suggest pneumonia.
10/19/23 Brain MRI: No acute intracranial abnormality. Prior small infarcts within the left cerebellar hemisphere, similar in appearance prior. Mucosal thickening with layering secretions in the right maxillary sinus.
[2023-10-25] MEDS: ASPIRIN 300 MG RECTAL (10:44)
[2023-10-25 12:54] LABS: Glucose - Point of Care 178 mg/dl (70-99)
[2023-10-25] MEDS: NOVOLOG FLEXPEN-LOW RESISTANCE 1 UNITS SC ×2 (13:04→23:46)
[2023-10-25] MEDS: LOPRESSOR 5 MG IV ×3 (13:05→23:40)
--- NOTE | 2023-10-25 15:46 | PTCARENOTE ---
Assumed care of patient at beginning of this shift from previous RN with b/l mitts and wrist restraints in use, as well as 4 side rails and med sitter. Patient remained restless throughout the day, but was somewhat calmer when present. On
initial med pass patient was not able to swallow pills crushed in applesauce. He made no attempt to swallow despite cuing. Speech therapist in to see patient and recommended continued NPO. Dr Bocanegra adjusted orders. Patient confused and difficult to
understand when speaking. Oral care completed as per protocol. See worklist for full assessment and vital signs; see MAR for med administration.
[2023-10-25] MEDS: LOVENOX 40 MG SC (17:01)
[2023-10-25 17:15] LABS: Glucose - Point of Care 141 mg/dl (70-99)
--- NOTE | 2023-10-25 17:49 | CM ---
Patient with Dx COVID-19 infection, Possible UTI, TME/Delirium, weakness/ataxia, Aspiration pneumonia. O2 2L. NPO/TPN. ST - dysphagia. Receiving IV Unasyn, Risperdal. PT & OT recommend skilled rehab. Per nurse; confused, mitts/restraints,
Medsitter.
Plan follow patient's mentation/behavior, TPN and ST for PO trials.
Plan follow up with for SNF choices.
[2023-10-25] MEDS: Parenteral Nutrition, Central 1920 IV (20:42)
--- NOTE | 2023-10-25 21:08 | PTCARENOTE ---
Received pt at shift change; pt remains in restraints (b/l soft wrist restraints with b/l mitts, 4 side rails) and on a medsitter. Pt is AAOx1, confused and restless in the bed, continues to throw his legs over the side rails in attempts to get out
of bed. Pt is calm but not following redirection, following only some commands. Pt last received PRN Risperdal ~ 1700, see MAR. SpO2 100% on 2L NC. Lungs are coarse at the bases, audible secretions heard when pt speaks; pt instructed to cough, oral
suctioning provided for pt. Ford in place draining deven colored urine. Remainder of assessment as documented. Mouth care performed, pt more tolerable to hygiene this evening, singular ice chip provided to pt, no coughing noted.
[2023-10-25] MEDS: RISPERDAL M-TAB (ORALLY DISINTEGRATING) 1 MG PO (22:01)
[2023-10-25 23:56] LABS: Glucose - Point of Care 178 mg/dl (70-99)
[2023-10-26] VITALS (20 sets, daily range): BP systolic 126–186; BP diastolic 62–119; PULSE 96; O2SAT 90; BMI 21.3
[2023-10-26 04:54] LABS: Hematocrit 32.8 % (39.0-52.0); Hemoglobin 10.9 g/dL (13.0-18.0); Mean Corp Hgb Conc. 33.2 g/dL (33.0-37.0); Mean Corpuscular Hgb 33.9 pg (27.0-31.0); Mean Corpuscular Volume 101.9 fL (80.0-94.0); Mean Platelet Volume 10.1 fL (7.4-10.4); Platelet Count 214 10^3/uL (130-400); Red Blood Cell Count 3.22 10^6/uL (4.70-6.10); Red Cell Dist. Width 12.4 % (11.5-14.5)
[2023-10-26 05:18] LABS: Blood Urea Nitrogen 24 mg/dl (9-20); Calcium 8.5 mg/dl (8.4-10.2); Carbon Dioxide 32 mmol/L (22-30); Chloride 111 mmol/L (98-107); Estimated Creatinine Clearance 82 ml/min; Glucose 150 mg/dl (70-99); Potassium 3.5 mmol/L (3.5-5.1); Sodium 143 mmol/L (135-145); eGFR > 60.00
[2023-10-26] MEDS: LOPRESSOR 5 MG IV ×3 (06:07→18:04)
[2023-10-26] MEDS: NOVOLOG FLEXPEN-LOW RESISTANCE SC ×2 (06:14→18:15)
[2023-10-26] MEDS: NOVOLOG FLEXPEN 3 UNITS SC ×3 (06:14→18:11)
[2023-10-26] MEDS: UNASYN IV (06:15)
[2023-10-26 06:26] LABS: Glucose - Point of Care 146 mg/dl (70-99)
--- NOTE | 2023-10-26 06:42 | W.PN.HOSP.TC ---
Today's Communication/Plan
-
Treat agitation and confusion, f/w psychiatry recommendations
Renew restraints
Adjust TPN
Aspiration precautions.
Assessment / Plan
Assessment / Plan
78-year-old male with fever and chills. Also had a runny nose. He was found to be positive for COVID. 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
Physical Exam
General: Restless and in restraints
HEENT: Normocephalic, Anicteric, dry mucous membranes.
Respiratory: limited, no wheezes.
Cardiac: S1/S2
GI: Soft, Non Tender, Non Distended.
Rectal: no bleeding
Genito-urinary:no hematuria
Musculoskeletal: No Clubbing, No Cyanosis and No Edema
Skin: Warm and Dry; No Rash
Neuro: confused. Unable to follow commands this morning.
Psych: + agitation.
MRI- No acute intracranial abnormality. Prior small infarcts within the left cerebellar hemisphere, similar in appearance prior.Mild atrophy with sequelae of mild small vessel ischemic disease.Mucosal thickening with layering secretions in the right
maxillary sinus. Recommend correlation for possible acute sinusitis.
#Acute hypoxic respiratory failure , on O2 at 3-4 liters, down to 2.5 L now
Recheck x ray of chest no worsening..
COVID-19 infection
Completed Paxlovid
Additional aspiration pneumonia-started Unasyn
Incentive spirometry to be continued
Aspiration precautions. Speech following.
# Fevers
Likely Covid,Blood CX neg
Treated aspiration pneumonia with Unasyn. continue through 10/25/2023.
# TME from Covid and also UTI
Not much improvement, remains agitated and requiring restraints
On risperidone TID. Normal QT on EKG. d/w psych, to adjust dose of medicine,.
Known to have sundowning at home, known short-term memory loss towards the evening hours. Hx of poor sleep at home.
Underlying cognitive dysfunction at baseline and delirium because of hospital admission and sickness.
Per neurology: Symptomatic COVID most likely is contributing to his confusion with toxic metabolic encephalopathy, most likely with baseline of dementia. May discontinue additional thiamine
Psychiatry increased the dose of risperidone
# Reported weakness/ataxia
History of TIA and chronic cerebellar infarcts
Left carotid stenosis status post CEA
Right carotid: Extensive atherosclerotic disease with peak systolic velocity within the proximal ICA . Elevated end-diastolic velocity and ICA/CCA ratio compatible with a greater than 70% stenosis.
ASA, statin
Vascular eval as OP. aware
MRI with no new strokes
# Hypokalemia, replace in TPN
# Hypernatremia
Increase water in TF
# Possible UTI due to pyuria but Cultures negative, already on Unasyn.
# Urinary retention-likely secondary to urethral stricture. Ford placed by urology. I spoke to Dr. Mtz . We can do voiding trial prior to discharge.
# Mild thrombocytopenia likely secondary to COVID
# Mild hyponatremia-Resolved. 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
# Lyme Screen positive-IgM negative. IgG from past infection.
# History of short-term memory loss/cognitive impairment
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
#Essential Hypertension-continue ramipril, metoprolol
# Pre DM - with TPN sugars higher,. Added Short term NovoLog. BS reading are acceptable for now, I wont make changes today unless his BS around 200. Do not anticipate needs when he goes home. Hold Metformin.
# Hyperlipidemia-statin
# Nutrition-patient still did not clear for p.o. intake. He is agitated which will make it difficult to place Dobbhoff tube and maintain it. TPN started. Await CMP reading for today to make adjustments. appreciate pharmacy and operations manager assistant
help
# Ex-smoker
# DVT prophylaxis-Lovenox
Called patient's Terese [phone] and d/w her the status. Also asked her to think about peg tube.
OOB to Gerichair daily.
Total time spent to see the patient, examine the patient on the floor, review data and lab results, discuss treatment plan with patient, , nursing staff around 55 minutes.
Anticipated Discharge: > 48 hours
Subjective/Interval History
-
Date of Service: October 26, 2023
Confused and agitated, still on restraints
Objective Data
-
Labs:
Laboratory Results
10/26/23
04:24
WBC 7.0
Hgb 10.9 L
Hct 32.8 L
Plt Count 214
Sodium 143
Potassium 3.5
Chloride 111 H
Carbon Dioxide 32 H
BUN 24 H
Creatinine 0.5 L
Glucose 150 H
Calcium 8.5
Vital Signs:
Vital Signs
Temp Pulse Resp BP Pulse Ox
97.4 F 78 15 153/76 97
10/26/23 03:54 10/26/23 06:07 10/26/23 02:30 10/26/23 06:07 10/26/23 02:30
I&O
10/24/23 10/25/23 10/26/23
06:59 06:59 06:59
Intake Total 120 / 120 1721 / 1721 1200 / 1200
Output Total 1800 / 1800 1800 / 1800 1175 / 1175
Balance -1680 / -1680 -79 / -79
[2023-10-26] MEDS: RISPERDAL M-TAB (ORALLY DISINTEGRATING) 0.5 MG PO ×2 (09:26→16:28)
[2023-10-26] MEDS: ASPIRIN 300 MG RECTAL (09:27)
--- NOTE | 2023-10-26 09:29 | W.PN.URO.CBU ---
Today's Communication / Plan
-
will sign off but goodwin emigdio chabging q month pt shuld be able to void as stricture dilated but will kep goodwin until ambulatory
Assessment / Plan
-
keep goodwin until fully ambulatory
Diagnosis
-
Date of Service: October 26, 2023
-
Patient Diagnosis:
Post Op Day:
Patient Diagnosis:
Post Op Day:
Patient Diagnosis:
Post Op Day:
Patient Diagnosis:
Post Op Day:
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
Post Op Day:
Subjective
-
ms changes
Objective
-
Vital Signs
Temp Pulse Resp BP Pulse Ox
98.2 F 75 22 167/68 97
10/26/23 07:58 10/26/23 06:30 10/26/23 06:30 10/26/23 06:30 10/26/23 06:30
Intake and Output
10/25/23 10/26/23 10/27/23
06:59 06:59 06:59
Intake Total 1721 / 1721 1200 / 1200
Output Total 1800 / 1800 1175 / 1175
Balance -79 / -79
Intake:
IV piggybacks 440 / 440 240 / 240
TPN/PPN 1281 / 1281 960 / 960
Output:
Urine, Goodwin 1800 / 1800 1175 / 1175
Laboratory Results
10/26/23 04:24
10/26/23 04:24
Review of Systems
-
Unable to obtain full review of systems at this time due to: Dementia
: Difficulty Voiding
Physical Exam
-
General - well developed, well nourished, no acute distress
Chest - clear bilaterally
Abdomen - soft, non-tender, positive bowel sounds, no CVAT, no incisional pain or distention
Genitalia - normal
Rectal - normal
Skin - warm & dry with no rash
Neuro - AOx3, no motor deficits
Extremities - no clubbing, no cyanosis, no edema
Incision - clean, dry
Dressing - clean, dry, intact
Care Review
Data Reviewed
Discussed with: Nursing
--- NOTE | 2023-10-26 11:35 | PTCARENOTE ---
Restraints removed- he is very strong, confused and agitated with turning but calm when not touched. Medsitter in place and alarms are on. Risperol given SL.
--- NOTE | 2023-10-26 12:05 | W.PN.UPDATE ---
Update Note
Progress Note Update
patient seen chart reviewed. mr kay remains delirious and was unable to engage in any meaningful conversational interaction. nursing with whom i spoke thinks he may be in pain. he definitely did not seem comfortable. i would say he appeared
somewhat restless. will hold off on bid risperdal for now and just use at night. would consider switching to seroquel which may have more of a calming effect although it is rather sedating and may have a negative effect on mentation. qt interval
had been high but now is normal . discussed with nursing iv tylenol for possible pain.nursing had tried pr tylenol but much stool in colon. ordered iv tylenol.
[2023-10-26 12:15] LABS: Glucose - Point of Care 162 mg/dl (70-99)
[2023-10-26] MEDS: NOVOLOG FLEXPEN-LOW RESISTANCE 1 UNITS SC (12:31)
--- NOTE | 2023-10-26 12:50 | W.PN.ID1 ---
Date of Service
Date of Service: October 26, 2023
Today's Communication
ID will sign off.
Assessment / Plan
# Aspiration pneumonia
- Acute hypoxic insufficiency resolved.
- s/p 7 d Unasyn through 10/25/2023.
- Aspiration precaution
# Symptomatic COVID infection
- Patient s/p 5-day course of Paxlovid
# Fever due to COVID, resolved
- Symptom onset 10/14 evening
- Admission CXR no PNA.
- S/p 10d isolation
# Encephalopathy
ID will sign off.
#Additional Past Medical History:
Mild dementia
Hypertension
Dyslipidemia
TIA
Left cerebellar chronic infarcts
Carotid stenosis s/p Left CEA
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
Prostate cancer status post prostatectomy
Heel, wrist and pelvis repair 1967
Chief Complaint
-: Pneumonia and Other (COVID-19)
Subjective / Review of Systems
Awake confused
Vital Signs / Physical Exam
Vital Signs
Vital Signs
Temp Pulse Resp BP Pulse Ox
97.5 F 78 22 164/62 95
10/26/23 11:30 10/26/23 12:31 10/26/23 09:20 10/26/23 12:31 10/26/23 09:20
Physical Exam
Constitutional: Acutely Ill
Pulmonary: Clear (anteriorly)
Gastrointestinal: Soft, Non Tender and Non Distended
Genito-Urinary: Frod and Clear Urine
Objective Data
Lab Data
Lab Results
10/26/23 04:24
10/26/23 04:24
Estimated Creat Clear 82 ml/min 10/26/23 04:24
Total Bilirubin 0.8 mg/dl (0.2-1.3) 10/25/23 08:54
AST 50 U/L (17-59) 10/25/23 08:54
ALT 42 U/L (0-50) 10/25/23 08:54
Alkaline Phosphatase 63 U/L (38-126) 10/25/23 08:54
Most recent labs reviewed.
Micro Results:
10/18/23 10:33 Blood Culture - Final
Blood/Venous No Growth - Final Report
10/18/23 18:21 Urine Culture - Final
Urine NO GROWTH
10/16/23 12:56 Urine Culture - Final
Urine NO GROWTH
10/22/2023 CXR (portable): Moderate opacification of the right infrahilar region and mid right lower lung field concerning for developing pneumonia. A tiny left pleural effusion is noted. No pneumothorax seen.
10/16/23 CXR: No acute cardiopulmonary process.
10/17/23 Vascular US: Right carotid: Extensive atherosclerotic disease with peak systolic velocity within the proximal ICA measuring 616 cm/s. Elevated end-diastolic velocity and ICA/CCA ratio compatible with a greater than 70% stenosis. Left
carotid: Mild calcified plaque/intimal thickening within the bulb proximal ICA causing less than 50% luminal narrowing.
10/18/23 CXR: There are new areas of airspace disease in both lower lobes, left greater than right. Findings suggest pneumonia.
10/19/23 Brain MRI: No acute intracranial abnormality. Prior small infarcts within the left cerebellar hemisphere, similar in appearance prior. Mucosal thickening with layering secretions in the right maxillary sinus.
[2023-10-26] MEDS: OFIRMEV 100 IV (12:52)
--- NOTE | 2023-10-26 14:41 | PTCARENOTE ---
NVPS was 07/28- d/w Dr. Escobar and IV Tylenol administered (DE Tylenol not given d/t earlier suppository given and pt has large amt soft stool in rectum). Post pain assessment 03/30.
[2023-10-26 17:54] LABS: Glucose - Point of Care 142 mg/dl (70-99)
--- NOTE | 2023-10-26 18:00 | PTCARENOTE ---
AA mentation waxes and wanes- confused conversation at times a coherent words at times as well. Restlessness at times- calm when present. Remained off restraints all day. Medsitter intact. Worked with PT/OT unable to get oob. Milk/molasses
enema given with mod results. Agitated with bowel movements.
[2023-10-26] MEDS: LOVENOX 40 MG SC (18:04)
[2023-10-26] MEDS: ATIVAN 0.5 MG IV (19:10)
[2023-10-26] MEDS: FLUSH (NSS) 1 FLUSH IV (19:11)
[2023-10-26] MEDS: Parenteral Nutrition, Central 1920 IV (20:35)
[2023-10-26] MEDS: RISPERDAL M-TAB (ORALLY DISINTEGRATING) 1 MG PO (22:22)
--- NOTE | 2023-10-26 22:50 | PTCARENOTE ---
Received Pt from Day RN during report Pt becoming more agitated and resistant to any care. Mitts order requested and applied to Pt for protection of tubes, PRN medication given (see mar). Reassessment Pt appears to be calm and resting comfortably.
Respiration even and unlabored vitals stable at this time. Video monitoring on. Assessment care and vitals as charted.
[2023-10-27] VITALS (10 sets, daily range): BP systolic 137–175; BP diastolic 50–103; BMI 21.1
[2023-10-27 00:07] LABS: Glucose - Point of Care 128 mg/dl (70-99)
[2023-10-27] MEDS: NOVOLOG FLEXPEN 3 UNITS SC ×5 (00:33→23:42)
[2023-10-27] MEDS: LOPRESSOR 5 MG IV ×5 (00:34→23:41)
[2023-10-27] MEDS: NOVOLOG FLEXPEN-LOW RESISTANCE SC ×3 (01:57→17:46)
[2023-10-27 05:32] LABS: Glucose - Point of Care 145 mg/dl (70-99)
[2023-10-27 06:26] LABS: Blood Urea Nitrogen 26 mg/dl (9-20); Calcium 8.1 mg/dl (8.4-10.2); Carbon Dioxide 29 mmol/L (22-30); Chloride 109 mmol/L (98-107); Estimated Creatinine Clearance 82 ml/min; Glucose 144 mg/dl (70-99); Magnesium 2.2 mg/dl (1.6-2.3); Phosphorus 3.2 mg/dl (2.5-4.5); Potassium 3.9 mmol/L (3.5-5.1); Sodium 138 mmol/L (135-145); eGFR > 60.00
[2023-10-27 06:29] LABS: Glucose - Point of Care 58 mg/dl (70-99)
--- NOTE | 2023-10-27 06:40 | W.PN.HOSP.TC ---
Today's Communication/Plan
-
Check PT/INT
Likely Peg placement Friday 10/27
c/w Risperdal
Mouth care.
Ford
Restraints
Assessment / Plan
Assessment / Plan
78-year-old male with fever and chills. Also had a runny nose. He was found to be positive for COVID. 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
Physical Exam
General: no respiratory distress
HEENT: Normocephalic, Anicteric, dry mucous membranes.
Respiratory: limited, no wheezes.
Cardiac: S1/S2
GI: Soft, Non Tender, Non Distended.
Rectal: no bleeding
Genito-urinary:no hematuria
Musculoskeletal: No Clubbing, No Cyanosis and No Edema
Skin: Warm and Dry; No Rash
Neuro: Sleeping
Psych: sleeping.
MRI- No acute intracranial abnormality. Prior small infarcts within the left cerebellar hemisphere, similar in appearance prior.Mild atrophy with sequelae of mild small vessel ischemic disease.Mucosal thickening with layering secretions in the right
maxillary sinus. Recommend correlation for possible acute sinusitis.
# Dysphagia with aspiration risk
Multiple attempts for swallowing improvement have failed. Expect prolonged need for parenteral nutrition
D/w and Olivia ( retired nurse- friend to family), they agreed on placing Peg tube to give the patient a chance to receive rehab out of the hospital.
Appreciate GI help. Check PT/INR.
#Acute hypoxic respiratory failure , on O2 at 3-4 liters, down to 2.5 L now
Recheck x ray of chest no worsening..
COVID-19 infection. Off isolation now
Completed Paxlovid
Additional aspiration pneumonia-started Unasyn
Incentive spirometry unable to use due to confusion.
Aspiration precautions. Speech following.
# Fevers, resolved. WBC normalized.
Likely Covid,Blood CX neg
Treated aspiration pneumonia with Unasyn. Finished.
# TME from Covid and also UTI
Not much improvement, remains agitated and requiring restraints, given Ativan last evening to help with sleep.
On risperidone TID. Normal QT on EKG.
Known to have sundowning at home, known short-term memory loss towards the evening hours. Hx of poor sleep at home but overall was functional at home.
Underlying cognitive dysfunction at baseline and delirium because of hospital admission and sickness.
Per neurology: Symptomatic COVID most likely is contributing to his confusion with toxic metabolic encephalopathy, most likely with baseline of dementia. May discontinue additional thiamine
Psychiatry increased the dose of risperidone, appreciate help.
# Reported weakness/ataxia
History of TIA and chronic cerebellar infarcts
Left carotid stenosis status post CEA
Right carotid: Extensive atherosclerotic disease with peak systolic velocity within the proximal ICA . Elevated end-diastolic velocity and ICA/CCA ratio compatible with a greater than 70% stenosis.
ASA, statin
Vascular eval as OP. aware
MRI with no new strokes
#Electrolyte imbalance, adjusted TPN.
# Possible UTI due to pyuria but Cultures negative, finished Unasyn.
# Urinary retention-likely secondary to urethral stricture. Ford placed by urology. Keep Ford now. We can do voiding trial upon starting rehab.
# Mild thrombocytopenia likely secondary to COVID
# Lyme Screen positive-IgM negative. IgG from past infection.
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
#Essential Hypertension-continue ramipril, metoprolol
# Pre DM - with TPN sugars higher,. Added Short term NovoLog.
# Hyperlipidemia-statin
# Nutrition- TPN now.
# Ex-smoker
# DVT prophylaxis-Lovenox
Called patient's Terese [phone] and d/w her the status. Also asked her to think about peg tube.
OOB to [facility] daily.
Total time spent to see the patient, examine the patient on the floor, review data and lab results, discuss treatment plan with patient, , nursing staff around 57 minutes.
Anticipated Discharge: > 48 hours
Subjective/Interval History
-
Date of Service: October 27, 2023
Still restraints, received Ativan last evening, slept well
Objective Data
-
Labs:
Laboratory Results
10/27/23
05:28
Sodium 138
Potassium 3.9
Chloride 109 H
Carbon Dioxide 29
BUN 26 H
Creatinine 0.5 L
Glucose 144 H
Calcium 8.1 L
Vital Signs:
Vital Signs
Temp Pulse Resp BP Pulse Ox
98.9 F 78 16 175/86 90
10/27/23 03:50 10/27/23 05:23 10/26/23 22:38 10/27/23 05:23 10/26/23 22:38
I&O
10/25/23 10/26/23 10/27/23
06:59 06:59 06:59
Intake Total 1721 / 1721 1200 / 1200 1060 / 1060
Output Total 1800 / 1800 1175 / 1175 1250 / 1250
Balance -79 / -79 25 / -190 / -190
--- NOTE | 2023-10-27 07:04 | PTCARENOTE ---
Accu check taken Blood sugar 58, re done by tech resulting at 109 waiting to load to system.
[2023-10-27] MEDS: ASPIRIN 300 MG RECTAL (08:46)
[2023-10-27] MEDS: RISPERDAL M-TAB (ORALLY DISINTEGRATING) PO (08:47)
[2023-10-27 09:18] LABS: INR 1.12; PT 14.5 Sec (11.4-14.6)
[2023-10-27 09:41] LABS: Glucose - Point of Care 109 mg/dl (70-99)
--- NOTE | 2023-10-27 11:59 | CON.GI ---
Addendum entered and electronically signed by Terrie Almazan MD 10/27/23 16:05:
I saw and examined the patient.
The GEAR MACHINIST's note was reviewed and I agree with the note.
Comment: This is a 78-year-old male with past medical history as listed below who was admitted on 10/16/2023 for COVID-pneumonia was treated with Paxlovid and also treated for aspiration pneumonia with Unasyn. He has been having ongoing altered
mental status secondary to TME and has required restraints since he also has a Goodwin catheter that was placed for urinary retention and we were consulted for PEG tube evaluation. He has failed swallow evaluation and deemed aspiration risk. He has
been on TPN. Noted input from Dr. Rodriguez and the dose of risperidone was decreased today.
Assessment and plan dysphagia secondary to illness and altered mental status/TME with aspiration risk after admission with COVID pneumonia. Unfortunately he is still agitated and has required restraints I am afraid he may have a high risk of
pulling the PEG tube after placement. I placed a call out to discuss further with his and I also reached out through TT to Dr. Bocanegra. He is currently on rectal aspirin and Lovenox sc. Hopefully may be able to reevaluate for swallowing
evaluation once his mentation starts to improve would continue TPN for now.
Original Note:
Consultation
-
Date/Time Consultation Requested: 10/27/23 0815
Date/Time Consultation Performed: 10/27/23 1200
Requesting Provider: Asiya Bocanegra MD
Performing Provider: HARDIK Dixon, Mercedes Velasco MD
Reason for Consultation: peg evaluation
Medical History
Chief Complaint / HPI
History of Present Illness:
Pt is a 78yo with hx TIA/CVA, CEA, prostate CA with prostatectomy, HTN, hyperlipidemia, covid 2020 and current admission with covid PNA with hypoxemia with TME. He was also noted with urinary retention with stricture an goodwin placement by urology
and delirium during admission. Asked to evaluate for peg placement for nutrition as currently on TPN. Pt with limited history with TME and delirium.
Past Medical History
Past Medical History: Cancer (prostate cA iwth prior prostectomy), CVA (prior TIA 2018, left cerebellar chronic infarct ), HTN, Hypercholesterolemia and Other (covid PNA with prior covid in 2020 and hx vaccination, anaplasmosis phagocytophilium,
prior smoker, hard of hearing )
Past Surgical History: Orthopedic (costa's cyst removal 2006, heal, wrist and pelvic repair 1967), Tonsilectomy, Urological (prostectomy) and Other (left CEA for carotid stenosis )
Social History
Tobacco: Former Smoker
Alcohol: Occasional
Personal:
Living: With Family
Family History
Family History: Unable to Obtain
Allergies / Home Medications
Allergy/AdvReac Type Severity Reaction Status Date / Time
Sulfa (Sulfonamide Allergy Unknown Verified 08/28/18 06:05
Antibiotics)
�Medication �Instructions �Recorded
aspirin 81 mg tablet,delayed 81 mg PO DAILY Blood Clot 12/20/17
release Prevention/Tx
metoprolol succinate 100 mg 100 mg PO QPM Blood Pressure 12/20/17
tablet,extended release 24 hr
ramipril 10 mg capsule 10 mg PO QPM Blood Pressure 12/20/17
atorvastatin 40 mg tablet 40 mg PO QPM ##30 12/22/17
Lactobac no.2-Bifidobac no.1-S. 1 cap PO DAILY Gastrointestinal 10/16/23
thermo 112.5 billion cell capsule Issue
(Visbiome)
cholecalciferol (vitamin D3) 50 100 mcg PO DAILY Supplement 10/16/23
mcg (2,000 unit) tablet (Vitamin
D3)
metformin 500 mg tablet 500 mg PO BIDWMEAL Diabetes 10/16/23
thiamine HCl (vitamin B1) 250 mg 250 mg PO BID Supplement 10/16/23
tablet
Review of Systems
-
Unable to obtain full review of systems at this time due to: Other (delerium)
History Source: Patient and Other (nursing staff )
Constitutional: Reports No Symptoms
EENT: Reports No Symptoms
Respiratory: Reports No Symptoms
Cardiac: Reports No Symptoms
Abdomen/GI: Reports Constipated
: Reports Difficulty Voiding (goodwin placed )
Musculoskeletal: Reports No Symptoms
Skin: Reports No Symptoms
Neurological: Reports Weakness and Other (confusion/agitation )
Endocrine: Reports No Symptoms
Hematologic/Lymphatic: Reports No Symptoms
Vital Signs
Temp Pulse Resp BP Pulse Ox
98.6 F 95 27 175/86 99
10/27/23 07:20 10/27/23 06:00 10/27/23 06:00 10/27/23 05:24 10/27/23 06:00
Physical Exam
Exam
General: Other (elderly male with agitation in exam requiring restraint)
HEENT: Normocephalic
Respiratory: Clear
Cardiac: Regular Rhythm
GI: Soft, Non Tender and Non Distended
Musculoskeletal: No Clubbing
Skin: Warm and Dry
Neuro: Other (aggitation with hallucinations )
Psych: Agitated
Results
WBC 7.0 10^3/uL (4.8-10.8) 10/26/23 04:24
Hgb 10.9 g/dL (13.0-18.0) L 10/26/23 04:24
Hct 32.8 % (39.0-52.0) L 10/26/23 04:24
MCV 101.9 fL (80.0-94.0) H 10/26/23 04:24
Plt Count 214 10^3/uL (130-400) 10/26/23 04:24
Absolute Neuts (auto) 3.4 10^3/uL (1.4-6.5) 10/19/23 04:33
PT 14.5 Sec (11.4-14.6) 10/27/23 08:56
INR 1.12 10/27/23 08:56
Sodium 138 mmol/L (135-145) 10/27/23 05:28
Potassium 3.9 mmol/L (3.5-5.1) 10/27/23 05:28
Chloride 109 mmol/L (98-107) H 10/27/23 05:28
Carbon Dioxide 29 mmol/L (22-30) 10/27/23 05:28
BUN 26 mg/dl (9-20) H 10/27/23 05:28
Creatinine 0.5 mg/dL (0.7-1.3) L 10/27/23 05:28
Calcium 8.1 mg/dl (8.4-10.2) L 10/27/23 05:28
Total Bilirubin 0.8 mg/dl (0.2-1.3) 10/25/23 08:54
AST 50 U/L (17-59) 10/25/23 08:54
ALT 42 U/L (0-50) 10/25/23 08:54
Alkaline Phosphatase 63 U/L (38-126) 10/25/23 08:54
Diagnostic Image Results:
10/22/23 Abdomen, Portable
Limited examination secondary to patient combativeness.
Nonobstructive bowel gas pattern. Likely mild colonic stool burden.
Prior GI Procedures:
EGD: unknown
Colonoscopy: unknown
Assessment / Plan
-
Pt is a 78yo with hx TIA/CVA, CEA, prostate CA with prostatectomy, HTN, hyperlipidemia, covid 2020 and current admission with covid PNA with hypoxemia with TME. He was also noted with urinary retention with stricture an goodwin placement by urology
and delirium during admission. Asked to evaluate for peg placement for nutrition as currently on TPN. Pt with limited history with TME and delirium.
-covid PNA with hypoxemia
-delirium
-dysphagia-recommended alternative nutrition
-urinary retention with goodwin placement
-thrombocytopenia - resolved
other med problems:
-TIA/CVA
-pre DM
-prostate with prostatectomy
-HTN
-hyperlipidemia
-covid 2020
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
PLAN:
asked to eval for peg
risk of peg bleeding, infection, perforation, decompensation and risk of pulling out peg with agitation
pt unable to consent with delirium --will need to review with for consent- Terese Yost [phone]
NPO cont TPN
Pt is on Lovenox 40mg SQ QPM and ASA 300mg daily rectally
Psych following with continued agitation
-
-
Thank you for consultation and allowing me to participate in the patient's care. Please call the ironer machine GI physician during the after hours with any questions or concerns.
[2023-10-27] MEDS: RISPERDAL M-TAB (ORALLY DISINTEGRATING) 0.25 MG PO ×4 (12:16→23:26)
[2023-10-27] MEDS: NOVOLOG FLEXPEN-LOW RESISTANCE 1 UNITS SC (12:23)
[2023-10-27 12:26] LABS: Glucose - Point of Care 154 mg/dl (70-99)
--- NOTE | 2023-10-27 12:57 | PTCARENOTE ---
Sleeping all am- arousable. Woke up reaching into the air, pulled attends off nearing goodwin catheter. Repositioned, attends replaced and turned, oral care completed- fell back asleep. Occasionally wakes up again reaching into air- rigid,
strong-will push back at staff, speech incoherent. AM Risperdal held for sedation but PRN Risperdal given once awake.
Currently here and now speaking some coherent appropriate words. Got up to recliner chair - insisting on carrington chair with tray table- order obtained. TPN infusing. Goodwin with yellow deven urine.
--- NOTE | 2023-10-27 14:53 | W.PN.UPDATE ---
Update Note
Progress Note Update
patient seen chart reviewed. spoke with and nursing. the patient seems to me to be more alert today. he was sitting up in a chair. he made efforts to engage in our conversation. he would look like he was following the trend of the discussion
and start to make a comment but given how much his speech was slurred very little of what he said was understandable. on the plus side he was certainly more awake and alert. discussed w cutting back the risperdal for a couple of reasons. the
slurred speech, he seemed to have some tremor and some rigidity and 's concern that he seemed sedated earlier. this is not his baseline. says he was a VERY active man who was NOT cognitively impaired when covid hit him recently. will
continue to follow. gi tells me they have been consulted re feeding tube.
[2023-10-27] MEDS: TYLENOL/FEVERALL 650 MG RECTAL (15:26)
--- NOTE | 2023-10-27 16:26 | W.PN.UPDATE ---
Update Note
Progress Note Update
Discussed with his Terese over the telephone and explained the concern given his mentation/TME wit agitation and concern for possibly pulling the PEG tube out and the risk of peritonitis if pulled soon after placement. Will follow his mentation
over the weekend and if he is less agitated and less risk of pulling tubes and catheters could place a feeding tube on Tuesday.
[2023-10-27] MEDS: ATIVAN 0.25 MG IV (16:46)
--- NOTE | 2023-10-27 16:54 | PTCARENOTE ---
Agitated, restless this pm, taking gown off, legs over side of bed. This show card writer sitting with him, PRN Ativan given.
--- NOTE | 2023-10-27 17:07 | CM ---
Patient with Dx COVID-19 infection, Possible UTI, TME/Delirium, weakness/ataxia, Aspiration pneumonia. Covid + 10/15 - Standard Precautions. NPO/TPN. ST - dysphagia. Receiving Risperdal. Seen by Psych. Per nurse; confused, mitts/restraints,
OOB chair. PT & OT recommended skilled rehab.
Spoke with patient's Terese; she has been here to see the patient and has been getting updates from the MDs and nurses. took a tour of [facility] and plans on touring [facility] tomorrow. She may be interested in referrals to [facility] and
[facility], and may want to consider [facility]. She will let CM know her final SNF choices.
CM continuing to follow for d/c needs.
Plan SNF once mentation/agitation hopefully improves and feeding issues resolve.
[2023-10-27] MEDS: LOVENOX 40 MG SC (17:37)
[2023-10-27 17:56] LABS: Glucose - Point of Care 128 mg/dl (70-99)
--- NOTE | 2023-10-27 19:27 | PTCARENOTE ---
IV Ativan did not alleviate agitation- prn Risperdol given. Change of shift- very agitated- garbled speech and very intense pulling off equipment- pt has PICC Line and Ford - orders obtained by night coordinator for wrist restraints- placed.
[2023-10-27] MEDS: Parenteral Nutrition, Central 1920 IV (21:05)
[2023-10-27] MEDS: RISPERDAL M-TAB (ORALLY DISINTEGRATING) 0.5 MG PO (21:30)
[2023-10-27 23:49] LABS: Glucose - Point of Care 141 mg/dl (70-99)
[2023-10-28] VITALS (19 sets, daily range): BP systolic 122–186; BP diastolic 60–146; BMI 21.1
[2023-10-28] MEDS: NOVOLOG FLEXPEN-LOW RESISTANCE SC ×2 (00:11→05:54)
[2023-10-28] MEDS: ATIVAN 0.25 MG IV ×2 (01:00→17:19)
[2023-10-28] MEDS: NSS (PRESERVATIVE FREE) 0.125 ML IV ×2 (01:02→17:19)
--- NOTE | 2023-10-28 02:28 | PTCARENOTE ---
Assumed care of Pt at 2300. Pt appearing agitated with b/l wrist restrains. Emotional support and redirection attempted with minimal response. PRN Q6 medication given, with out much affect. PRN IV medication given (see MAR). Reassessment Pt appears
to be sleeping comfortably respiration even unlabored SPO2 98% RA.
[2023-10-28] MEDS: APRESOLINE 5 MG IV (03:15)
[2023-10-28 05:22] LABS: Hematocrit 30.1 % (39.0-52.0); Hemoglobin 10.4 g/dL (13.0-18.0); Mean Corp Hgb Conc. 34.6 g/dL (33.0-37.0); Mean Corpuscular Hgb 33.1 pg (27.0-31.0); Mean Corpuscular Volume 95.9 fL (80.0-94.0); Mean Platelet Volume 10.1 fL (7.4-10.4); Platelet Count 218 10^3/uL (130-400); Red Blood Cell Count 3.14 10^6/uL (4.70-6.10); Red Cell Dist. Width 12.4 % (11.5-14.5); White Blood Cell Count 7.8 10^3/uL (4.8-10.8)
[2023-10-28 05:25] LABS: Glucose - Point of Care 120 mg/dl (70-99)
[2023-10-28 05:44] LABS: Blood Urea Nitrogen 22 mg/dl (9-20); Carbon Dioxide 25 mmol/L (22-30); Chloride 106 mmol/L (98-107); Estimated Creatinine Clearance 81 ml/min; Glucose 131 mg/dl (70-99); Potassium 3.7 mmol/L (3.5-5.1); Sodium 134 mmol/L (135-145); eGFR > 60.00
[2023-10-28] MEDS: NOVOLOG FLEXPEN 3 UNITS SC ×2 (05:54→12:48)
[2023-10-28] MEDS: LOPRESSOR 5 MG IV ×3 (05:55→17:34)
--- NOTE | 2023-10-28 06:40 | W.PN.HOSP.TC ---
Today's Communication/Plan
-
- Await GI to place Peg tube
Mental status remains unchanged, still confused, requiring restraints
Assessment / Plan
Assessment / Plan
78-year-old male with fever and chills. Also had a runny nose. He was found to be positive for COVID. Patient denied any shortness of breath or chest pain or headache SNAKER.
Physical Exam
General: no respiratory distress
HEENT: Normocephalic, Anicteric, dry mucous membranes.
Respiratory: limited, no wheezes.
Cardiac: S1/S2
GI: Soft, Non Tender, Non Distended.
Rectal: no bleeding
Genito-urinary:no hematuria
Musculoskeletal: No Clubbing, No Cyanosis and No Edema
Skin: Warm and Dry; No Rash
Neuro: Sleeping
Psych: sleeping.
MRI- No acute intracranial abnormality. Prior small infarcts within the left cerebellar hemisphere, similar in appearance prior.Mild atrophy with sequelae of mild small vessel ischemic disease.Mucosal thickening with layering secretions in the right
maxillary sinus. Recommend correlation for possible acute sinusitis.
# Dysphagia with aspiration risk
Multiple attempts for swallowing improvement have failed. Expect prolonged need for parenteral nutrition
D/w and Olivia ( retired nurse- friend to family), they agreed on placing Peg tube to give the patient a chance to receive rehab out of the hospital.
Appreciate GI help. Check PT/INR.
#Acute hypoxic respiratory failure , on O2 at 3-4 liters, down to 2.5 L now
Recheck x ray of chest no worsening..
COVID-19 infection. Off isolation now
Completed Paxlovid
Additional aspiration pneumonia-started Unasyn
Incentive spirometry unable to use due to confusion.
Aspiration precautions. Speech following.
# Fevers, resolved. WBC normalized.
Likely Covid,Blood CX neg
Treated aspiration pneumonia with Unasyn. Finished.
# TME from Covid and also UTI
Not much improvement, remains agitated and requiring restraints, given Ativan last evening to help with sleep.
On risperidone TID. Normal QT on EKG.
Known to have sundowning at home, known short-term memory loss towards the evening hours. Hx of poor sleep at home but overall was functional at home.
Underlying cognitive dysfunction at baseline and delirium because of hospital admission and sickness.
Per neurology: Symptomatic COVID most likely is contributing to his confusion with toxic metabolic encephalopathy, most likely with baseline of dementia. May discontinue additional thiamine
Psychiatry increased the dose of risperidone, appreciate help.
# Reported weakness/ataxia
History of TIA and chronic cerebellar infarcts
Left carotid stenosis status post CEA
Right carotid: Extensive atherosclerotic disease with peak systolic velocity within the proximal ICA . Elevated end-diastolic velocity and ICA/CCA ratio compatible with a greater than 70% stenosis.
ASA, statin
Vascular eval as OP. aware
MRI with no new strokes
#Electrolyte imbalance, adjusted TPN.
# Possible UTI due to pyuria but Cultures negative, finished Unasyn.
# Urinary retention-likely secondary to urethral stricture. Ford placed by urology. Keep Ford now. We can do voiding trial upon starting rehab.
# Mild thrombocytopenia likely secondary to COVID
# Lyme Screen positive-IgM negative. IgG from past infection.
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
#Essential Hypertension-continue ramipril, metoprolol
# Pre DM - with TPN sugars higher,. Added Short term NovoLog.
# Hyperlipidemia-statin
# Nutrition- TPN now.
# Ex-smoker
# DVT prophylaxis-Lovenox
Called patient's Terese [phone] and d/w her the status. Also asked her to think about peg tube.
OOB to [facility] daily.
Total time spent to see the patient, examine the patient on the floor, review data and lab results, discuss treatment plan with patient, , nursing staff around 57 minutes.
Anticipated Discharge: > 48 hours
Subjective/Interval History
-
Date of Service: October 28, 2023
Objective Data
-
Labs:
Laboratory Results
10/28/23
05:07
WBC 7.8
Hgb 10.4 L
Hct 30.1 L
Plt Count 218
Sodium 134 L
Potassium 3.7
Chloride 106
Carbon Dioxide 25
BUN 22 H
Creatinine 0.4 L
Glucose 131 H
Calcium 8.0 L
Vital Signs:
Vital Signs
Temp Pulse Resp BP Pulse Ox
97.5 F 80 22 136/64 94
10/28/23 04:22 10/28/23 05:55 10/28/23 02:08 10/28/23 05:55 10/28/23 02:08
I&O
10/26/23 10/27/23 10/28/23
06:59 06:59 06:59
Intake Total 1200 / 1200 1060 / 1060 960 / 960
Output Total 1175 / 1175 1250 / 1250 1800 / 1800
Balance 25 / 25 -190 / -190 -840 / -840
--- NOTE | 2023-10-28 09:20 | W.PN.GI.CBS2 ---
Addendum entered and electronically signed by Terrie Almazan MD 10/28/23 11:36:
I saw and examined the patient.
The COMPOSITION ROOFER's note was reviewed and I agree with the note.
Comment: Continues to be very agitated and remains high risk for pulling out PEG after placement. Will continue to monitor the mental status over the weekend and possible PEG placement on Tuesday if less agitated and decreased risk of pulling the
tube. Continue TPN for now. Unfortunately Dobbhoff tube is also not an option because of the risk of him pulling it out after placement but since he is currently on restraints could consider temporarily placing a Dobbhoff tube for tube feeds
Original Note:
Today's Communication / Plan
-
still with agitation and high risk for pulling out peg with placement leading to peritonitis, persistent fistula tract etc
monitor mental status over weekend
consider peg next week if agitation improves vs comfort
Dr. Almazan reviewed with 10/26
NPO cont TPN
Pt is on Lovenox 40mg SQ QPM and ASA 300mg daily rectally
Psych following with continued agitation
Assessment / Plan
-
Pt is a 78yo with hx TIA/CVA, CEA, prostate CA with prostatectomy, HTN, hyperlipidemia, covid 2020 and current admission with covid PNA with hypoxemia with TME. He was also noted with urinary retention with stricture an goodwin placement by urology
and delirium during admission. Asked to evaluate for peg placement for nutrition as currently on TPN. Pt with limited history with TME and delirium.
-covid PNA with hypoxemia
-delirium/agitation
-dysphagia-recommended alternative nutrition
-urinary retention with goodwin placement
-thrombocytopenia - resolved
other med problems:
-TIA/CVA
-pre DM
-prostate with prostatectomy
-HTN
-hyperlipidemia
-covid 2020
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
PLAN:
still with agitation and high risk for pulling out peg with placement leading to peritonitis, persistent fistula tract etc
monitor mental status over weekend
consider peg next week if agitation improves vs comfort
Dr. Almazan reviewed with 10/26
NPO cont TPN
Pt is on Lovenox 40mg SQ QPM and ASA 300mg daily rectally
Psych following with continued agitation
Subjective
Subjective
Date of Service: October 28, [address] Almazan, still with agitation and try to pull at provider with abdominal exam remains with restraints , 10/26 small stool, on TPN as risk of pulling out DHT
Objective
Data Reviewed
Laboratory Data:
Laboratory Results
10/28/23 05:07
10/28/23 05:07
Laboratory Results
PT 14.5 Sec (11.4-14.6) 10/27/23 08:56
INR 1.12 10/27/23 08:56
Phosphorus 3.2 mg/dl (2.5-4.5) 10/27/23 05:28
Magnesium 2.2 mg/dl (1.6-2.3) 10/27/23 05:28
Total Bilirubin 0.8 mg/dl (0.2-1.3) 10/25/23 08:54
AST 50 U/L (17-59) 10/25/23 08:54
ALT 42 U/L (0-50) 10/25/23 08:54
Alkaline Phosphatase 63 U/L (38-126) 10/25/23 08:54
Vital Signs and I&O:
Vital Signs
Temp Pulse Resp BP Pulse Ox
98.2 F 90 19 151/77 96
10/28/23 07:59 10/28/23 08:21 10/28/23 08:21 10/28/23 08:21 10/28/23 08:21
I&O
10/27/23 10/28/23 10/29/23
06:59 06:59 06:59
Intake Total 2019 960 / 960 960 / 960
Output Total 1250 / 1250 1800 / 1800
Balance 770 / 770 -840 / -840 960 / 960
Physical Exam
Physical Exam
HEENT: Anicteric and Moist mucous membranes
Cardiology: Normal Sinus Rhythm
Pulmonary: Other (decreased )
GI: Soft and Other (limited exam with agitation pulling at provider hand with abdominal exam )
Neuro: Other (agitated incompresible conversation)
[2023-10-28] MEDS: RISPERDAL M-TAB (ORALLY DISINTEGRATING) 0.25 MG PO (10:24)
[2023-10-28] MEDS: ASPIRIN 300 MG RECTAL (11:00)
--- NOTE | 2023-10-28 12:30 | PN.CDI ---
Addendum entered and electronically signed by Asiya Bocanegra MD 10/28/23 12:58:
Aspiration Pneumonia with COVID Pneumonia
Original Note:
CDI
- -
CDI:
Physician Documentation Request
Admit Date: 10/17/23 17:23
Dear Doctor Sahra,
Clinical Indicators:
Patient admitted with COVID 19 infection.
10/21 CXR report, 'Progressed findings suggesting right lower lobe pneumonia.'
10/22 ID PN, 'Aspiration pneumonia due to decreased mental status - Repeat CXR new bibasilar opacity compared to admission CXR'
10/24 PN, 'Acute hypoxic respiratory failure...COVID-19 infection...Additional aspiration pneumonia'
IV antibiotics: Unasyn 3gm IV q 6h
Please clarify type of pneumonia you are treating:
Aspiration Pneumonia only
Aspiration Pneumonia with COVID Pneumonia
Other, please specify
Use of terms such as suspected, likely, concern for, or probable (associated with a specific diagnosis that is being evaluated, monitored, or treated as if it exists) are acceptable and can be coded in the inpatient setting, when documented at the
time of discharge.
Thank you,
Idania Ortega RN BSN
CDI Specialist
available via tiger text
Please use your independent medical judgment in providing your response.
[2023-10-28 12:46] LABS: Glucose - Point of Care 151 mg/dl (70-99)
[2023-10-28] MEDS: NOVOLOG FLEXPEN-LOW RESISTANCE 1 UNITS SC (12:49)
--- NOTE | 2023-10-28 13:28 | W.PN.UPDATE ---
Update Note
Progress Note Update
patient seen chart reviewed. spoke with nursing, and with dr vanegas. the patient had a tough 24 hours with periods of agitation necessitating prns and restraints. there is much discussion re peg tube placement . the patient was very
unapproachable when first seen. he was holding both arms in rigid position. i could not flex elbow or wrist. i suspect this may in large part have been voluntary. he would not speak. i came back a bit later and he was speaking to his but not
intelligbly. he continued to hold his body rigidly and to NOT respond to nursing who was trying to check iv and administer medications. we have had concerns re risperdal and rigidity hence cutting back risperdal doseage yesterday. we are limited
in what meds we can use given npo. discussed stopping risperdal for next 24 hours and seeing how patient did w ativan iv only and remeron odt at hs. psych will continue to follow. the peg tube is put off til tuesday given fears that patient will
pull it out.
--- NOTE | 2023-10-28 13:41 | CM ---
CM following re: discharge planning.
Reviewed pt's chart, met with pt. Per chart review, possible PEG placement on Tuesday if less agitated and decreased risk of pulling the tube. Continue TPN. psychiatry following for agitation.
PT and OT evaluations noted - SNF level of care recommended.per CM note, pt's spouse has a list of SNFs and she is touring SNFs.
D/C plan: preferred SNF when pt is medically stable.
CM will follow with discharge plan updates as hospitalization progresses
--- NOTE | 2023-10-28 16:35 | PTCARENOTE ---
Patient was nonverbal this morning, very stiff and combative. When arrived patient started to talk and calm down. Medication regimen discussed with medical team, new orders obtained. Patient has been restrained due to risk of pulling out PIcc
line needed for TPN.
[2023-10-28 17:35] LABS: Glucose - Point of Care 147 mg/dl (70-99)
[2023-10-28] MEDS: LOVENOX 40 MG SC (17:35)
[2023-10-28] MEDS: Parenteral Nutrition, Central 1920 IV (21:11)
[2023-10-28] MEDS: REMERON ODT PO ×2 (21:11→21:22)
[2023-10-29] VITALS (16 sets, daily range): BP systolic 105–183; BP diastolic 46–163; PULSE 104; O2SAT 96; BMI 20.3
[2023-10-29 00:24] LABS: Glucose - Point of Care 132 mg/dl (70-99)
[2023-10-29] MEDS: NOVOLOG FLEXPEN-LOW RESISTANCE SC ×4 (00:44→23:22)
[2023-10-29] MEDS: ATIVAN 0.25 MG IV ×5 (00:50→23:01)
[2023-10-29] MEDS: LOPRESSOR 5 MG IV ×5 (00:54→23:15)
[2023-10-29] MEDS: NSS (PRESERVATIVE FREE) 0.125 ML IV ×4 (00:59→23:02)
[2023-10-29] MEDS: NOVOLOG FLEXPEN 3 UNITS SC ×4 (01:00→23:21)
[2023-10-29] MEDS: NSS (PRESERVATIVE FREE) 0.25 ML IV (02:47)
--- NOTE | 2023-10-29 06:49 | W.PN.HOSP.TC ---
Today's Communication/Plan
-
.
Assessment / Plan
Assessment / Plan
78-year-old male with fever and chills. Also had a runny nose. He was found to be positive for COVID. 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
Physical Exam
General: no respiratory distress
HEENT: Normocephalic, Anicteric, dry mucous membranes.
Respiratory: limited, no wheezes.
Cardiac: S1/S2
GI: Soft, Non Tender, Non Distended.
Rectal: no bleeding
Genito-urinary:no hematuria
Musculoskeletal: No Clubbing, No Cyanosis and No Edema
Skin: Warm and Dry; No Rash
Neuro: Sleeping
Psych: sleeping.
MRI- No acute intracranial abnormality. Prior small infarcts within the left cerebellar hemisphere, similar in appearance prior.Mild atrophy with sequelae of mild small vessel ischemic disease.Mucosal thickening with layering secretions in the right
maxillary sinus. Recommend correlation for possible acute sinusitis.
# Dysphagia with aspiration risk
Multiple attempts for swallowing improvement have failed. Expect prolonged need for parenteral nutrition
D/w and Olivia ( retired nurse- friend to family), they agreed on placing Peg tube to give the patient a chance to receive rehab out of the hospital.
Appreciate GI help. Normal PT/INR.
Nystatin swabs to mouth care
#Acute hypoxic respiratory failure , on O2 at 3-4 liters, down to 2.5 L now
Recheck x ray of chest no worsening..
COVID-19 infection. Off isolation now
Completed Paxlovid
Additional aspiration pneumonia-started Unasyn
Incentive spirometry unable to use due to confusion.
Aspiration precautions. Speech following.
# Fevers, resolved. WBC normalized.
Likely Covid,Blood CX neg
Treated aspiration pneumonia with Unasyn. Finished.
# TME from Covid and also UTI
Not much improvement, remains agitated and requiring restraints, given Ativan last evening to help with sleep.
Trial of risperidone TID. Normal QT on EKG. Agitation did not improve. d/w psych: trial of Ativan with Remeron ( was not given last night)
Known to have sundowning at home, known short-term memory loss towards the evening hours. Hx of poor sleep at home but overall was functional at home.
Underlying cognitive dysfunction at baseline and delirium because of hospital admission and sickness.
Per neurology: Symptomatic COVID most likely is contributing to his confusion with toxic metabolic encephalopathy, most likely with baseline of dementia. May discontinue additional thiamine
Psychiatry is following appreciate help.
# Reported weakness/ataxia
History of TIA and chronic cerebellar infarcts
Left carotid stenosis status post CEA
Right carotid: Extensive atherosclerotic disease with peak systolic velocity within the proximal ICA . Elevated end-diastolic velocity and ICA/CCA ratio compatible with a greater than 70% stenosis.
ASA, statin
Vascular eval as OP. aware
MRI with no new strokes
#Electrolyte imbalance, adjusted TPN.
# Possible UTI due to pyuria but Cultures negative, finished Unasyn.
# Urinary retention-likely secondary to urethral stricture. Ford placed by urology. Keep Ford now. We can do voiding trial upon starting rehab.
# Mild thrombocytopenia likely secondary to COVID
# Lyme Screen positive-IgM negative. IgG from past infection.
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
#Essential Hypertension-continue ramipril, metoprolol
# Pre DM - with TPN sugars higher,. Added Short term NovoLog.
# Hyperlipidemia-statin
# Nutrition- TPN now.
# Ex-smoker
# DVT prophylaxis-Lovenox
Called patient's Terese [phone] and d/w her the status. Also asked her to think about peg tube.
OOB to [facility] daily.
Total time spent to see the patient, examine the patient on the floor, review data and lab results, discuss treatment plan with patient, , nursing staff around 57 minutes.
Anticipated Discharge: > 48 hours
Subjective/Interval History
-
Date of Service: October 29, 2023
remains agitated, needed PRN IV Ativan
Objective Data
-
Vital Signs:
Vital Signs
Temp Pulse Resp BP Pulse Ox
99.3 F 76 21 147/101 98
10/29/23 03:29 10/29/23 06:00 10/29/23 06:00 10/29/23 06:00 10/29/23 06:00
I&O
10/27/23 10/28/23 10/29/23
06:59 06:59 06:59
Intake Total 2019 / 2019 960 / 960 960 / 960
Output Total 1250 / 1250 1800 / 1800 1700 / 1700
Balance 770 / 770 -840 / -840 -740 / -740
[2023-10-29 08:43] LABS: Glucose - Point of Care 148 mg/dl (70-99)
[2023-10-29] MEDS: MYCOSTATIN ORAL SUSPENSION 5 ML PO ×4 (10:03→21:08)
[2023-10-29] MEDS: ASPIRIN 300 MG RECTAL (13:55)
--- NOTE | 2023-10-29 14:40 | PTCARENOTE ---
Patient responding to touch with aggression towards staff, kicking at punching. Patient responds to verbal stimuli at times with garbled speech but at times he does not respond at all. Patient can not answer questions correctly or follow commands.
When nurse sings the Eagles song he can recite the entire song loudly. NPO status continues with TPN infusing via central line. Bilateral wrists restraint in use due to attempts to pull on lines. Patient fights during assessment and turning making
care difficult. at bedside. Discussed assessment findings with hospitalist Dr. Bocanegra.
--- NOTE | 2023-10-29 15:46 | W.PN.UPDATE ---
Update Note
Progress Note Update
Patient is at this point quite agitated, pulling very hard on the restraints to get out of them. He is talking quite unintelligibly and unable to organize his thoughts.
He is to have PEG tube inserted on Tuesday.
Discussed with who was present.
Will increase the Ativan prn to 0.5 mg ; will F/U.
[2023-10-29 16:48] LABS: Glucose - Point of Care 143 mg/dl (70-99)
[2023-10-29] MEDS: LOVENOX 40 MG SC (16:54)
[2023-10-29] MEDS: ATIVAN 0.5 MG IV (18:29)
[2023-10-29] MEDS: REMERON ODT PO (21:16)
[2023-10-29] MEDS: Parenteral Nutrition, Central 1920 IV (21:16)
--- NOTE | 2023-10-29 22:56 | PTCARENOTE ---
Pt refuses to take Remeron. Spits it out after multiple attempts. Pt uncooperative, restless & combative in bed when trying to do care with him. PRN ativan given. TPN running. B/L wrist restrains & medsittter in place for his safety. Garbles speech.
Pt not oriented. BA on. Will monitor.
[2023-10-29 23:24] LABS: Glucose - Point of Care 110 mg/dl (70-99)
[2023-10-30] VITALS (15 sets, daily range): BP systolic 95–183; BP diastolic 48–143; BMI 19.7
[2023-10-30] MEDS: LOPRESSOR 5 MG IV ×4 (05:31→23:56)
[2023-10-30 05:57] LABS: Blood Urea Nitrogen 18 mg/dl (9-20); Calcium 8.6 mg/dl (8.4-10.2); Carbon Dioxide 30 mmol/L (22-30); Chloride 103 mmol/L (98-107); Estimated Creatinine Clearance 78 ml/min; Glucose 126 mg/dl (70-99); Potassium 4.3 mmol/L (3.5-5.1); Sodium 132 mmol/L (135-145); eGFR > 60.00
--- NOTE | 2023-10-30 06:53 | W.PN.HOSP.TC ---
Today's Communication/Plan
-
.
Assessment / Plan
Assessment / Plan
78-year-old male with fever and chills. Also had a runny nose. He was found to be positive for COVID. 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
Physical Exam
General: no respiratory distress
HEENT: Normocephalic, Anicteric, dry mucous membranes.
Respiratory: limited, no wheezes.
Cardiac: S1/S2
GI: Soft, Non Tender, Non Distended.
Rectal: no bleeding
Genito-urinary:no hematuria
Musculoskeletal: No Clubbing, No Cyanosis and No Edema
Skin: Warm and Dry; No Rash
Neuro: awake, did not follow commands.
Psych: agitation
MRI- No acute intracranial abnormality. Prior small infarcts within the left cerebellar hemisphere, similar in appearance prior.Mild atrophy with sequelae of mild small vessel ischemic disease.Mucosal thickening with layering secretions in the right
maxillary sinus. Recommend correlation for possible acute sinusitis.
# Dysphagia with aspiration risk
Multiple attempts for swallowing improvement have failed. Expect prolonged need for parenteral nutrition
D/w and Olivia ( retired nurse- friend to family), they agreed on placing Peg tube to give the patient a chance to receive rehab out of the hospital.
Plan for Peg tube 10/30
Appreciate GI help. Normal PT/INR.
Nystatin swabs to mouth care
#Acute hypoxic respiratory failure , on O2 at 3-4 liters, down to 2.5 L now
Recheck x ray of chest no worsening..
COVID-19 infection. Off isolation now
Completed Paxlovid
Additional aspiration pneumonia-started Unasyn
Incentive spirometry unable to use due to confusion.
Aspiration precautions. Speech followed.
# Fevers, resolved. WBC normalized.
Likely Covid,Blood CX neg
Treated aspiration pneumonia with Unasyn. Finished.
# TME from Covid and also UTI
Not much improvement, remains agitated and requiring restraints, given Ativan last evening to help with sleep.
Trial of risperidone TID. Normal QT on EKG. Agitation did not improve. d/w psych: trial of Ativan with Remeron ( pt refused to take it)
Known to have sundowning at home, known short-term memory loss towards the evening hours. Hx of poor sleep at home but overall was functional at home.
Underlying cognitive dysfunction at baseline and delirium because of hospital admission and sickness.
Per neurology: Symptomatic COVID most likely is contributing to his confusion with toxic metabolic encephalopathy, most likely with baseline of dementia. May discontinue additional thiamine
Psychiatry is following appreciate help.
# Reported weakness/ataxia
History of TIA and chronic cerebellar infarcts
Left carotid stenosis status post CEA
Right carotid: Extensive atherosclerotic disease with peak systolic velocity within the proximal ICA . Elevated end-diastolic velocity and ICA/CCA ratio compatible with a greater than 70% stenosis.
ASA, statin
Vascular eval as OP. aware
MRI with no new strokes
#Electrolyte imbalance, hyponatremia, adjusted TPN.
# Possible UTI due to pyuria but Cultures negative, finished Unasyn.
# Urinary retention-likely secondary to urethral stricture. Ford placed by urology. Keep Ford now. We can do voiding trial upon starting rehab.
# Mild thrombocytopenia likely secondary to COVID
# Lyme Screen positive-IgM negative. IgG from past infection.
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
#Essential Hypertension-continue ramipril, metoprolol
# Pre DM - with TPN sugars higher,. Added Short term NovoLog.
# Hyperlipidemia-statin
# Nutrition- TPN now.
# Ex-smoker
# DVT prophylaxis-Lovenox, holding it for Peg placement per GI.
Called patient's Terese [phone] and d/w her the status. Also asked her to think about peg tube.
OOB to [facility] daily.
Total time spent to see the patient, examine the patient on the floor, review data and lab results, discuss treatment plan with patient, , psychiatrist, nursing staff around 57 minutes.
Anticipated Discharge: > 48 hours
Subjective/Interval History
-
Date of Service: October 30, 2023
Still confused
No fevers
No hypoxia
Objective Data
-
Labs:
Laboratory Results
10/30/23
05:28
Sodium 132 L
Potassium 4.3
Chloride 103
Carbon Dioxide 30
BUN 18
Creatinine 0.6 L
Glucose 126 H
Calcium 8.6
Vital Signs:
Vital Signs
Temp Pulse Resp BP Pulse Ox
100.1 F 109 19 155/97 97
10/29/23 23:19 10/30/23 05:31 10/30/23 05:31 10/30/23 05:31 10/30/23 05:31
I&O
10/28/23 10/29/23 10/30/23
06:59 06:59 06:59
Intake Total 960 / 960 960 / 960 960 / 960
Output Total 1800 / 1800 1700 / 1700 2350 / 2350
Balance -840 / -840 -740 / -740 -1390 / -1390
[2023-10-30 08:16] LABS: Glucose - Point of Care 149 mg/dl (70-99)
--- NOTE | 2023-10-30 08:42 | VATNOTE ---
PICC dressing due to be changed. Patient restrained, uncooperative, and agitated when interacted with. Will attempt redress at later time.
[2023-10-30] MEDS: NSS (PRESERVATIVE FREE) 0.125 ML IV ×2 (09:03→17:02)
[2023-10-30] MEDS: ATIVAN 0.25 MG IV ×2 (09:04→17:02)
[2023-10-30] MEDS: NOVOLOG FLEXPEN-LOW RESISTANCE SC ×2 (09:26→16:56)
[2023-10-30] MEDS: NOVOLOG FLEXPEN 3 UNITS SC ×2 (09:28→16:57)
--- NOTE | 2023-10-30 09:43 | PTCARENOTE ---
Assumed care at 0700. 1st degree AV block on telemetry, HR 80-90s. BP elevated, 166/112, but rechecked when patient less agitated, now 139/66. Not able to verbalize name when asked, but opens eyes to name/voice. Very agitated w/ care, attempts to
pull tubes, and swing at staff. Continued need for restraints, order renewed. Medicated w/ scheduled Ativan. Now patient snoring, SaO2 stable on room air, >95%.
[2023-10-30] MEDS: MYCOSTATIN ORAL SUSPENSION 5 ML PO ×4 (10:30→21:30)
[2023-10-30] MEDS: ASPIRIN 300 MG RECTAL (10:39)
--- NOTE | 2023-10-30 12:31 | PTCARENOTE ---
Now more alert. Speech is garbled, confused conversation, but currently pleasant w/ visitor at bedside. Able to follow most simple commands. Mouth care provided. Asking for 'water.' Provided w/ a couple ice chips per aspiration risk hydration
protocol, wet cough present afterwards. Meaghan CONSERVATION TECHNICIAN made aware.
--- NOTE | 2023-10-30 14:39 | W.PN.UPDATE ---
Update Note
Progress Note Update
Patient is doing better, less agitated, mot struggling as much to get out of restraints as he was yesterday.
For now would continue the IV Ativan as ordered.
Will continue F/U.
[2023-10-30 16:50] LABS: Glucose - Point of Care 129 mg/dl (70-99)
[2023-10-30] MEDS: NSS (PRESERVATIVE FREE) 0.25 ML IV (20:18)
[2023-10-30] MEDS: ATIVAN 0.5 MG IV (20:20)
[2023-10-30] MEDS: REMERON ODT 15 MG PO (21:30)
[2023-10-30] MEDS: Parenteral Nutrition, Central 1920 IV (21:30)
[2023-10-31] VITALS (23 sets, daily range): BP systolic 18–171; BP diastolic 37–110; PULSE 71–81; O2SAT 93; BMI 19.4
[2023-10-31] MEDS: ATIVAN 0.25 MG IV ×4 (00:03→23:18)
[2023-10-31] MEDS: NSS (PRESERVATIVE FREE) 0.125 ML IV ×4 (00:03→23:19)
[2023-10-31] MEDS: NOVOLOG FLEXPEN 3 UNITS SC ×3 (00:05→23:58)
[2023-10-31] MEDS: NOVOLOG FLEXPEN-LOW RESISTANCE 1 UNITS SC (00:06)
[2023-10-31 00:16] LABS: Glucose - Point of Care 164 mg/dl (70-99)
[2023-10-31] MEDS: LOPRESSOR 5 MG IV ×4 (05:23→23:28)
--- NOTE | 2023-10-31 06:18 | PTCARENOTE ---
Pt maintained on med sitter with B/L wrist restrains and 4 side rails. Pt continues to pull at restraints foams in place for padded protection. Pt pulling at blankets and Ford. Medication for agitation see MAY. Pt remains NPO and unable to clear
secretions, mouth care done numerous times. Emotional support given. Assessment care and vitals as charted.
[2023-10-31 06:22] LABS: ALT (SGPT) 31 U/L (0-50); AST (SGOT) 31 U/L (17-59); Albumin 2.9 g/dl (3.5-5.0); Alkaline Phosphatase 71 U/L (38-126); Blood Urea Nitrogen 20 mg/dl (9-20); Calcium 8.8 mg/dl (8.4-10.2); Carbon Dioxide 26 mmol/L (22-30); Chloride 103 mmol/L (98-107); Estimated Creatinine Clearance 75 ml/min; Glucose 141 mg/dl (70-99); Magnesium 2.2 mg/dl (1.6-2.3); Phosphorus 3.7 mg/dl (2.5-4.5); Potassium 4.6 mmol/L (3.5-5.1); Sodium 133 mmol/L (135-145); Total Bilirubin 0.5 mg/dl (0.2-1.3); Total Protein 5.3 g/dl (6.3-8.2); Triglycerides 57 mg/dl (10-149); eGFR > 60.00
[2023-10-31 07:38] LABS: Hematocrit 33.6 % (39.0-52.0); Hemoglobin 11.6 g/dL (13.0-18.0); Mean Corp Hgb Conc. 34.5 g/dL (33.0-37.0); Mean Corpuscular Hgb 32.9 pg (27.0-31.0); Mean Corpuscular Volume 95.2 fL (80.0-94.0); Mean Platelet Volume 10.5 fL (7.4-10.4); Platelet Count 316 10^3/uL (130-400); Red Blood Cell Count 3.53 10^6/uL (4.70-6.10); Red Cell Dist. Width 12.9 % (11.5-14.5); White Blood Cell Count 11.1 10^3/uL (4.8-10.8)
[2023-10-31] MEDS: ASPIRIN 300 MG RECTAL (08:52)
[2023-10-31] MEDS: NOVOLOG FLEXPEN SC ×2 (08:59→09:03)
[2023-10-31] MEDS: MYCOSTATIN ORAL SUSPENSION 5 ML PO ×4 (08:59→22:01)
[2023-10-31] MEDS: NOVOLOG FLEXPEN-LOW RESISTANCE SC ×3 (09:03→23:59)
--- NOTE | 2023-10-31 09:03 | W.PN.HOSP.TC ---
Today's Communication/Plan
-
PEG today. [facility].
Assessment / Plan
Assessment / Plan
78-year-old male with fever and chills. Also had a runny nose. He was found to be positive for COVID. 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
Physical Exam
General: no respiratory distress
HEENT: Normocephalic, Anicteric, dry mucous membranes.
Respiratory: limited, no wheezes.
Cardiac: S1/S2
GI: Soft, Non Tender, Non Distended.
Rectal: no bleeding
Genito-urinary:no hematuria
Musculoskeletal: No Clubbing, No Cyanosis and No Edema
Skin: Warm and Dry; No Rash
Neuro: awake, did not follow commands.
Psych: agitation on and off
A/P:
MRI- No acute intracranial abnormality. Prior small infarcts within the left cerebellar hemisphere, similar in appearance prior.Mild atrophy with sequelae of mild small vessel ischemic disease.Mucosal thickening with layering secretions in the right
maxillary sinus. Recommend correlation for possible acute sinusitis.
# Dysphagia with aspiration risk
Multiple attempts for swallowing improvement have failed. Expect prolonged need for parenteral nutrition but now that he has PEG tube hopefully can transition to more
D/w and Olivia ( retired nurse- friend to family), they agreed on placing Peg tube to give the patient a chance to receive rehab out of the hospital.
Plan for Peg tube 10/30
Appreciate GI help. Normal PT/INR.
Nystatin swabs to mouth care
#Acute hypoxic respiratory failure , on O2 at 3-4 liters, down to 2.5 L now
Recheck x ray of chest no worsening..
COVID-19 infection. Off isolation now
Completed Paxlovid
Additional aspiration pneumonia-started Unasyn
Incentive spirometry unable to use due to confusion.
Aspiration precautions. Speech followed.
# Fevers, resolved. WBC normalized.
Likely Covid,Blood CX neg
Treated aspiration pneumonia with Unasyn. Finished.
# TME from Covid and also UTI
Not much improvement, remains agitated and requiring restraints, given Ativan last evening to help with sleep.
Trial of risperidone TID. Normal QT on EKG. Agitation did not improve. d/w psych: trial of Ativan with Remeron ( pt refused to take it)
Known to have sundowning at home, known short-term memory loss towards the evening hours. Hx of poor sleep at home but overall was functional at home.
Underlying cognitive dysfunction at baseline and delirium because of hospital admission and sickness.
Per neurology: Symptomatic COVID most likely is contributing to his confusion with toxic metabolic encephalopathy, most likely with baseline of dementia. May discontinue additional thiamine
Psychiatry is following appreciate help.
# Reported weakness/ataxia
History of TIA and chronic cerebellar infarcts
Left carotid stenosis status post CEA
Right carotid: Extensive atherosclerotic disease with peak systolic velocity within the proximal ICA . Elevated end-diastolic velocity and ICA/CCA ratio compatible with a greater than 70% stenosis.
ASA, statin
Vascular eval as OP. aware
MRI with no new strokes
#Electrolyte imbalance, hyponatremia, adjusted TPN.
# Possible UTI due to pyuria but Cultures negative, finished Unasyn.
# Urinary retention-likely secondary to urethral stricture. Ford placed by urology. Keep Ford now. We can do voiding trial upon starting rehab.
# Mild thrombocytopenia likely secondary to COVID
# Lyme Screen positive-IgM negative. IgG from past infection.
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
#Essential Hypertension-continue ramipril, metoprolol
# Pre DM - with TPN sugars higher,. Added Short term NovoLog.
# Hyperlipidemia-statin
# Nutrition- TPN now.
# Ex-smoker
# DVT prophylaxis-Lovenox, holding it for Peg placement per GI.
Called patient's Terese [phone] and d/w her the status. Also asked her to think about peg tube.
OOB to Gerichair daily.
Total time spent to see the patient, examine the patient on the floor, review data and lab results, discuss treatment plan with patient, , psychiatrist, nursing staff around 57 minutes.
Anticipated Discharge: > 48 hours
Subjective/Interval History
-
Date of Service: October 31, 2023
Patient seen postprocedure. No new complaints. On restraints
Objective Data
-
Labs:
Laboratory Results
10/31/23 10/31/23
05:27 05:38
WBC Cancelled 11.1 H
Hgb Cancelled 11.6 L
Hct Cancelled 33.6 L
Plt Count Cancelled 316 D
Sodium Cancelled 133 L
Potassium Cancelled 4.6
Chloride Cancelled 103
Carbon Dioxide Cancelled 26
BUN Cancelled 20
Creatinine Cancelled 0.6 L
Glucose Cancelled 141 H
Calcium Cancelled 8.8
Total Bilirubin Cancelled 0.5
AST Cancelled 31
ALT Cancelled 31
Alkaline Phosphatase Cancelled 71
Vital Signs:
Vital Signs
Temp Pulse Resp BP Pulse Ox
98.2 F 80 16 113/83 94
10/31/23 08:42 10/31/23 06:11 10/31/23 06:11 10/31/23 06:11 10/31/23 06:11
I&O
10/30/23 10/31/23 11/01/23
06:59 06:59 06:59
Intake Total 960 / 960 960 / 960
Output Total 2350 / 2350 3600 / 3600
Balance -1390 / -1390 -2640 / -2640
--- NOTE | 2023-10-31 10:24 | W.IMMPOSTOP ---
Addendum entered and electronically signed by Shorty Lowry MD 10/31/23 10:35:
[facility]#[id number]
Original Note:
Surgical Immed Post Op Note
-
Primary Surgeon: Alen
Assisting Surgeon: Norah
Pre-op Diagnosis: Malnutrition
Post-op Diagnosis: Malnutrition
Procedure Performed: Percutaneous endoscopic gastrostomy tube (PEG)
Anesthesia Type: MAC/local
Specimen / Cultures:
1. Esophageal biopsies (see GI note)
Estimated Blood Loss: 3 cc
Complications: None
Operative Findings:
1. EGD with small PEH, esophagitis (biopsies performed to r/o Mcrae's, anatomy otherwise normal
2. 20 Fr PEG inserted using pull technique; transillumination, 1:1 palpation, bubble study
3. Secured at 1.5 cm at the skin, binder placed
[2023-10-31] MEDS: ANCEF 10 IV (13:05)
[2023-10-31 17:20] LABS: Glucose - Point of Care 135 mg/dl (70-99)
--- NOTE | 2023-10-31 17:40 | CM ---
Patient with Dx Dysphagia with aspiration risk, Acute hypoxic respiratory failure, TME from Covid and also UTI, Reported weakness/ataxia. PEG tube placed today. Covid + 10/15 - Standard Precautions. Room air. NPO/TPN. PT & OT 10/30; dependent,
assist of 2, recommend skilled rehab. Seen by Psych. Per nursing; wrist restraints, Medsitter.
Plan follow up with for SNF preferences.
Plan SNF referrals once mentation/restless hopefully improves and patient out of restraints.
[2023-10-31] MEDS: Parenteral Nutrition, Central 1920 IV (21:55)
[2023-10-31] MEDS: REMERON ODT 15 MG PO (22:01)
[2023-10-31] MEDS: TYLENOL/FEVERALL 650 MG RECTAL (23:15)
[2023-11-01] VITALS (15 sets, daily range): BP systolic 115–176; BP diastolic 60–120; BMI 18.9
[2023-11-01 00:08] LABS: Glucose - Point of Care 149 mg/dl (70-99)
[2023-11-01] MEDS: APRESOLINE 5 MG IV (02:11)
--- NOTE | 2023-11-01 03:52 | PTCARENOTE ---
Pt with low grade fever. Rectal tylenol given per MAY. Continues with fever in the hours following administration, ice packs placed underneath armpits as tolerated.
[2023-11-01 04:29] LABS: % Basophils 0.3 % (0-2); % Eosinophils 0.7 % (0-6); % Immature Granulocytes 0.4 % (0-0.5); % Lymphocytes 19.4 % (20.5-51.1); % Monocytes 8.5 % (1.7-9.3); % Neutrophils 70.7 % (42.2-75.2); Absolute Eosinophils 0.1 10^3/uL (0-0.7); Absolute Immature Granulocytes 0.1 10^3/uL (0-0.05); Absolute Lymphocytes 2.9 10^3/uL (1.2-3.4); Absolute Monocytes 1.3 10^3/uL (0.1-0.6); Absolute Neutrophils 10.7 10^3/uL (1.4-6.5); Hematocrit 35.3 % (39.0-52.0); Hemoglobin 12.2 g/dL (13.0-18.0); Mean Corp Hgb Conc. 34.6 g/dL (33.0-37.0); Mean Corpuscular Hgb 33.8 pg (27.0-31.0); Mean Corpuscular Volume 97.8 fL (80.0-94.0); Mean Platelet Volume 10.7 fL (7.4-10.4); Nucleated Red Blood Cells % 0 % (-); Platelet Count 332 10^3/uL (130-400); Red Blood Cell Count 3.61 10^6/uL (4.70-6.10); Red Cell Dist. Width 12.7 % (11.5-14.5); White Blood Cell Count 15.1 10^3/uL (4.8-10.8)
[2023-11-01 04:52] LABS: ALT (SGPT) 26 U/L (0-50); AST (SGOT) 29 U/L (17-59); Albumin 3.1 g/dl (3.5-5.0); Alkaline Phosphatase 81 U/L (38-126); Blood Urea Nitrogen 24 mg/dl (9-20); Calcium 8.8 mg/dl (8.4-10.2); Carbon Dioxide 24 mmol/L (22-30); Chloride 102 mmol/L (98-107); Estimated Creatinine Clearance 73 ml/min; Glucose 149 mg/dl (70-99); Potassium 4.5 mmol/L (3.5-5.1); Sodium 133 mmol/L (135-145); Total Bilirubin 0.7 mg/dl (0.2-1.3); Total Protein 5.6 g/dl (6.3-8.2); eGFR > 60.00
[2023-11-01] MEDS: LOPRESSOR 5 MG IV ×4 (06:22→23:09)
[2023-11-01] MEDS: TYLENOL/FEVERALL 650 MG RECTAL (06:29)
--- NOTE | 2023-11-01 08:03 | PTCARENOTE ---
Assumed care of patient this AM. Patient with fevers overnight. Tylenol suppository administered x2. Last temperature 101.0 axillary at 0600 am. Tylenol suppository administered by night RN. Ice packs on patient. Patient very confused and
agitated. Med-sitter in use. Bilateral wrist restraints/4 side rails. Peg tube placed yesterday. Abdominal binder on as per order.
[2023-11-01] MEDS: MYCOSTATIN ORAL SUSPENSION 5 ML PO ×3 (08:26→21:37)
[2023-11-01] MEDS: ATIVAN 0.25 MG IV ×3 (08:26→23:09)
[2023-11-01] MEDS: ASPIRIN 300 MG RECTAL (08:27)
[2023-11-01] MEDS: NOVOLOG FLEXPEN-LOW RESISTANCE 1 UNITS SC (08:35)
[2023-11-01] MEDS: NSS (PRESERVATIVE FREE) 0.125 ML IV ×4 (08:36→23:09)
[2023-11-01] MEDS: NOVOLOG FLEXPEN 3 UNITS SC ×3 (08:36→23:16)
[2023-11-01 08:37] LABS: Glucose - Point of Care 156 mg/dl (70-99)
--- NOTE | 2023-11-01 11:03 | W.PN.HOSP.TC ---
Today's Communication/Plan
-
IV antibiotics. PEG feeding initiated
Assessment / Plan
Assessment / Plan
Physical exam:
General: Acutely ill
HEENT: Normocephalic, Atraumatic and Moist Mucous Membranes
Respiratory: Coarse rhonchi in the bases; Negative Wheezes, or Rales
Cardiac: Regular Rhythm and S1/S2
GI: Soft, Nontender and Nondistended
Musculoskeletal: No Clubbing, No Cyanosis and No Edema
Neuro: Awake, Alert and Disoriented, nonpurposeful movement but spontaneously all 4 extremities, no focality deficits.
Psych: Lack of judgment and insight
A/P:
Toxic metabolic encephalopathy:
Brain MRI no acute abnormality
Etiology possible COVID-19 related encephalopathy and now superimposed with several acute insults during this hospital stay.
Continue monitor mental and behavioral status
Continue nonviolent restraints
Continue standing IV Ativan per psychiatry
Discussed with at bedside- confirms prior to admission patient was functional and doing his activity of daily living without any problems.
Fever:
Suspicion for recurrent aspiration pneumonia in the setting of fever and worsening leukocytosis and abnormal lung sounds
Obtain chest x-ray
Obtain cultures
Start IV Unasyn today
COVID-19:
Off isolation precautions
Status post 5 days of Paxlovid
Acute hypoxic respiratory failure:
Oxygen as needed
Monitor respiratory status
Dysphagia:
Patient on TPN
Will start PEG feedings today and wean TPN over the next 24 hours.
Status post PEG on 10/30.
Urinary retention:
Continue following per urology recommendations due to urethral stricture
Past medical problems:
Hypertension
Dyslipidemia
Prediabetes mellitus
TIA/brain infarcts
PVD with carotid stenosis status post left CEA
Prostate cancer
DVT prophylaxis:
Lovenox 40 mg SQ daily
CODE STATUS:
Full code
Overall prognosis guarded
Total time spent on today's encounter was 52 minutes which included time spent in counseling the patient/family regarding diagnosis and treatment plan as listed above, goals of care, and symptom management. Case was discussed with nursing staff,
specialists, and care coordinators/case management. All labs and imaging personally reviewed by me. Remainder the time spent in detailed review of previous records, lab data, imaging, and other medical provider documentation.
Anticipated Discharge: > 48 hours
Subjective/Interval History
-
Date of Service: November 01, 2023
Patient slightly more alert but disoriented. Agitation on and off. Remains in restraints. Recurrent fevers overnight-Tmax 101 Fahrenheit.
Objective Data
-
Labs:
Laboratory Results
11/01/23
04:07
WBC 15.1 H
Hgb 12.2 L
Hct 35.3 L
Plt Count 332
Sodium 133 L
Potassium 4.5
Chloride 102
Carbon Dioxide 24
BUN 24 H
Creatinine 0.6 L
Glucose 149 H
Calcium 8.8
Total Bilirubin 0.7
AST 29
ALT 26
Alkaline Phosphatase 81
Vital Signs:
Vital Signs
Temp Pulse Resp BP Pulse Ox
99.5 F 112 19 132/74 99
11/01/23 07:52 11/01/23 06:22 11/01/23 06:22 11/01/23 06:22 11/01/23 08:39
I&O
10/31/23 11/01/23 11/02/23
06:59 06:59 06:59
Intake Total 960 / 960
Output Total 3600 / 3600 1300 / 1300
Balance -2640 / -2640 -1300 / -1300
--- NOTE | 2023-11-01 11:10 | W.PN.GI.CBS2 ---
Today's Communication / Plan
-
PPI bid
fever w/u per primary team
Ok to start TF today via PEG
Assessment / Plan
-
Pt is a 78yo with hx TIA/CVA, CEA, prostate CA with prostatectomy, HTN, hyperlipidemia, covid 2020 and current admission with covid PNA with hypoxemia with TME. He was also noted with urinary retention with stricture an goodwin placement by urology
and delirium during admission. Asked to evaluate for peg placement for nutrition as currently on TPN. Pt with limited history with TME and delirium.
-covid PNA with hypoxemia
-delirium/agitation
-dysphagia-recommended alternative nutrition
-urinary retention with goodwin placement
-thrombocytopenia - resolved
other med problems:
-TIA/CVA
-pre DM
-prostate with prostatectomy
-HTN
-hyperlipidemia
-covid 2020
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
PLAN:
Status post PEG placement 10/31/2023 for aspiration risk with oropharyngeal dysphagia and altered mental status
He spiked a fever yesterday will need fever workup he had been treated recently for COVID and aspiration pneumonia and UTI defer workup to primary team he did receive antibiotics prior to PEG placement yesterday
Okay to resume Lovenox sc today
Okay to use PEG tube for feeds today as recommended by dietitian
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
Will sign off and will be available as needed
Subjective
Subjective
Date of Service: November 01, 2023
Patient still agitated and confused. Status post PEG placement yesterday, spiked fever yesterday
Objective
Data Reviewed
Laboratory Data:
Laboratory Results
11/01/23 04:07
11/01/23 04:07
Laboratory Results
PT 14.5 Sec (11.4-14.6) 10/27/23 08:56
INR 1.12 10/27/23 08:56
Phosphorus 3.7 mg/dl (2.5-4.5) 10/31/23 05:38
Magnesium 2.2 mg/dl (1.6-2.3) 10/31/23 05:38
Total Bilirubin 0.7 mg/dl (0.2-1.3) 11/01/23 04:07
AST 29 U/L (17-59) 11/01/23 04:07
ALT 26 U/L (0-50) 11/01/23 04:07
Alkaline Phosphatase 81 U/L (38-126) 11/01/23 04:07
Vital Signs and I&O:
Vital Signs
Temp Pulse Resp BP Pulse Ox
99.5 F 112 19 132/74 99
11/01/23 07:52 11/01/23 06:22 11/01/23 06:22 11/01/23 06:22 11/01/23 08:39
I&O
10/31/23 11/01/23 11/02/23
06:59 06:59 06:59
Intake Total 960 / 960
Output Total 3600 / 3600 1300 / 1300
Balance -2640 / -2640 -1300 / -1300
Physical Exam
Physical Exam
Cardiology: Normal Sinus Rhythm
Pulmonary: Clear
GI: Soft, Non Distended, Non Tender, Normal Bowel Sounds and Other (PEG site looks good)
[2023-11-01] MEDS: PREVACID 30 MG TUBE ×2 (13:02→19:41)
--- NOTE | 2023-11-01 13:16 | CM ---
CM following re: discharge planning.
Reviewed pt's chart, met with pt and pt's spouse Terese at bedside.
PT and OT have been recommending SNF level of care. Pt's spouse, she already chosen [facility], she contacted them a few days ago and per spouse they accepted the pt and they will provide a private room. 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
Pt stated she does not need any other SNF because [facility] already accepted the pt. CM to confirm with [facility] health director after making a referral.
A referral to [facility] made.
D/C plan: [facility] when medically stable.
CM will follow with discharge plan updates as hospitalization progresses
--- NOTE | 2023-11-01 13:41 | W.PN.UPDATE ---
Update Note
Progress Note Update
Pt seen, reviewed with nursing staff; pt sleeping, intermittently restless, in soft wrist restraints. Pt noted with fever, confusion, agitation overnight. PEG tube was placed yesterday. Overall was less agitated over the weekend, after Risperdal
stopped, placed on scheduled IV Ativan.
Imp: TME due to Covid-19 infection, with persistent confused state, intermittent agitation
Hx of unspecified cognitive impairment
Rec: continue IV Ativan- routine and prn; Remeron at HS. Holding off Risperidone/antipsychotics due to possible side effects
will follow
[2023-11-01] MEDS: NSS (PRESERVATIVE FREE) 0.5 ML IV (14:56)
[2023-11-01] MEDS: FLUSH (NSS) 2 FLUSH IV ×2 (14:57→16:26)
[2023-11-01] MEDS: ATIVAN 0.5 MG IV ×2 (14:57→23:43)
[2023-11-01] MEDS: UNASYN IV ×2 (16:25→21:36)
[2023-11-01 17:17] LABS: Glucose - Point of Care 133 mg/dl (70-99)
[2023-11-01] MEDS: NOVOLOG FLEXPEN-LOW RESISTANCE SC ×2 (17:29→23:16)
--- NOTE | 2023-11-01 17:30 | PTCARENOTE ---
Started tube feeding at 1730. Jevity 1.5 @ 20 mls/hr with 25 mls/hr water flush. Feed to be advanced q8h by 20 mls until goal of 55 mls/hr is reached. Patient has continued need for wrist restraints to prevent him from pulling tubes out. Patient
at times highly agitated and restless. Ativan is ordered. INC at 2 of large amount of soft stool. Patient with confused conversation and garbled speech.
[2023-11-01] MEDS: LOVENOX 40 MG SC (18:17)
[2023-11-01] MEDS: MYCOSTATIN ORAL SUSPENSION PO (18:44)
[2023-11-01] MEDS: TYLENOL 650 MG TUBE (20:00)
[2023-11-01 20:56] LABS: Urine Albumin Trace (Neg - Trace); Urine Bilirubin Negative (Negative); Urine Character Clear (Clear); Urine Color Yellow; Urine Glucose Negative (Negative); Urine Ketone Negative (Negative); Urine Leukocyte Trace (Negative); Urine Nitrite Negative (Negative); Urine Occult Blood 1+ (Negative); Urine Specific Gravity 1.025 (<1.030); Urine Urobilinogen Negative (Neg - 1+)
[2023-11-01 21:17] LABS: Urine Mucus Many; Urine Squamous Cell 0-2 /LPF (Few); Urine White Cell 0-2 /HPF (0-5)
[2023-11-01 21:18] LABS: Urine Bacteria Moderate (Negative)
[2023-11-01] MEDS: REMERON ODT 15 MG PO (21:37)
[2023-11-01] MEDS: Parenteral Nutrition, Central 1920 IV (21:45)
[2023-11-01 23:25] LABS: Glucose - Point of Care 135 mg/dl (70-99)
[2023-11-01] MEDS: NSS (PRESERVATIVE FREE) 0.25 ML IV (23:44)
[2023-11-02] VITALS (17 sets, daily range): BP systolic 95–162; BP diastolic 36–130; PULSE 85; O2SAT 94; BMI 19.5
[2023-11-02] MEDS: UNASYN IV ×4 (02:11→22:56)
[2023-11-02] MEDS: TYLENOL 650 MG TUBE (04:27)
[2023-11-02] MEDS: LOPRESSOR 5 MG IV ×3 (05:08→16:58)
[2023-11-02 05:19] LABS: % Basophils 0.4 % (0-2); % Eosinophils 1.7 % (0-6); % Immature Granulocytes 0.4 % (0-0.5); % Lymphocytes 20.9 % (20.5-51.1); % Neutrophils 67.6 % (42.2-75.2); Absolute Eosinophils 0.1 10^3/uL (0-0.7); Absolute Lymphocytes 1.6 10^3/uL (1.2-3.4); Absolute Monocytes 0.7 10^3/uL (0.1-0.6); Absolute Neutrophils 5.2 10^3/uL (1.4-6.5); Hemoglobin 10.4 g/dL (13.0-18.0); Mean Corp Hgb Conc. 33.5 g/dL (33.0-37.0); Mean Corpuscular Hgb 33.1 pg (27.0-31.0); Mean Corpuscular Volume 98.7 fL (80.0-94.0); Mean Platelet Volume 10.6 fL (7.4-10.4); Nucleated Red Blood Cells % 0 % (-); Platelet Count 253 10^3/uL (130-400); Red Blood Cell Count 3.14 10^6/uL (4.70-6.10); Red Cell Dist. Width 12.8 % (11.5-14.5); White Blood Cell Count 7.7 10^3/uL (4.8-10.8)
--- NOTE | 2023-11-02 05:38 | PTCARENOTE ---
Assume care from AM RN. AAOX1. anxious, restless, forgetful, Confused, and uncooperative. NSR to ST in the monitor. pt was given PRN Ativan. Lung sounds are coarse at the bases, Sao2 98% RA. Nonproductive cough. Pt tube feed was advanced to 40 ml
and has been tolerating without any issues. pt continues to slide down the bed. HOB > 30 degrees. Small BM. Will continue with tx plan.
[2023-11-02 05:46] LABS: ALT (SGPT) 25 U/L (0-50); AST (SGOT) 27 U/L (17-59); Albumin 2.7 g/dl (3.5-5.0); Alkaline Phosphatase 76 U/L (38-126); Blood Urea Nitrogen 26 mg/dl (9-20); Calcium 8.5 mg/dl (8.4-10.2); Carbon Dioxide 22 mmol/L (22-30); Chloride 105 mmol/L (98-107); Estimated Creatinine Clearance 75 ml/min; Glucose 140 mg/dl (70-99); Potassium 4.5 mmol/L (3.5-5.1); Sodium 133 mmol/L (135-145); Total Bilirubin 0.5 mg/dl (0.2-1.3); eGFR > 60.00
[2023-11-02] MEDS: PREVACID 30 MG TUBE ×2 (07:27→20:45)
[2023-11-02] MEDS: ASPIRIN 300 MG RECTAL (07:27)
[2023-11-02] MEDS: MYCOSTATIN ORAL SUSPENSION 5 ML PO ×4 (07:27→20:46)
[2023-11-02] MEDS: ATIVAN 0.25 MG IV ×3 (07:28→22:59)
[2023-11-02 08:42] LABS: Glucose - Point of Care 151 mg/dl (70-99)
[2023-11-02] MEDS: NOVOLOG FLEXPEN-LOW RESISTANCE 1 UNITS SC (08:49)
[2023-11-02] MEDS: NOVOLOG FLEXPEN 3 UNITS SC ×2 (08:49→16:56)
--- NOTE | 2023-11-02 09:12 | W.PN.HOSP.TC ---
Addendum entered and electronically signed by Júnior Bullard MD 11/02/23 14:46:
Discussed with . D/c tpn and central line.Cont abx, wbc trending down and f/u blood cx. Rebound covid possible but would not tx and waiting for lyme and associated tests. Prognosis remains guarded.
Original Note:
Today's Communication/Plan
-
Continue tube feedings. Continue IV antibiotics.
Assessment / Plan
Assessment / Plan
Physical exam:
General: Acutely ill
HEENT: Normocephalic, Atraumatic and Moist Mucous Membranes
Respiratory: Coarse rhonchi in the bases; Negative Wheezes, or Rales
Cardiac: Regular Rhythm and S1/S2
GI: Soft, Nontender and Nondistended
Musculoskeletal: No Clubbing, No Cyanosis and No Edema
Neuro: Awake, Alert and Disoriented, nonpurposeful movement but spontaneously all 4 extremities, no focality deficits.
Psych: Lack of judgment and insight
A/P:
Toxic metabolic encephalopathy:
Brain MRI no acute abnormality
Etiology possible COVID-19 related encephalopathy and now superimposed with several acute insults during this hospital stay.
Continue monitor mental and behavioral status
Continue nonviolent restraints
Continue standing IV Ativan per psychiatry
Discussed with at bedside- confirms prior to admission patient was functional and doing his activity of daily living without any problems.
Fever:
Suspicion for recurrent aspiration pneumonia in the setting of fever and worsening leukocytosis and abnormal lung sounds
WBC 15.1--> 7.7
Obtain chest x-ray
Obtain cultures
Start IV Unasyn today
COVID-19:
Off isolation precautions
Status post 5 days of Paxlovid
Acute hypoxic respiratory failure:
Oxygen as needed
Monitor respiratory status
Dysphagia:
Patient on TPN
Will start PEG feedings today and wean TPN over the next 24 hours.
Status post PEG on 10/30.
Urinary retention:
Continue following per urology recommendations due to urethral stricture
Past medical problems:
Hypertension
Dyslipidemia
Prediabetes mellitus
TIA/brain infarcts
PVD with carotid stenosis status post left CEA
Prostate cancer
DVT prophylaxis:
Lovenox 40 mg SQ daily
CODE STATUS:
Full code
Overall prognosis guarded
Total time spent on today's encounter was 52 minutes which included time spent in counseling the patient/family regarding diagnosis and treatment plan as listed above, goals of care, and symptom management. Case was discussed with nursing staff,
specialists, and care coordinators/case management. All labs and imaging personally reviewed by me. Remainder the time spent in detailed review of previous records, lab data, imaging, and other medical provider documentation.
Anticipated Discharge: > 48 hours
Subjective/Interval History
-
Date of Service: November 02, 2023
No new complaints. Tolerating tube feedings. Afebrile today
Objective Data
-
Labs:
Laboratory Results
11/02/23
05:07
WBC 7.7
Hgb 10.4 L
Hct 31.0 L
Plt Count 253 D
Sodium 133 L
Potassium 4.5
Chloride 105
Carbon Dioxide 22
BUN 26 H
Creatinine 0.6 L
Glucose 140 H
Calcium 8.5
Total Bilirubin 0.5
AST 27
ALT 25
Alkaline Phosphatase 76
Vital Signs:
Vital Signs
Temp Pulse Resp BP Pulse Ox
98.6 F 77 17 95/36 100
11/02/23 08:18 11/02/23 06:03 11/02/23 06:03 11/02/23 06:03 11/02/23 07:39
I&O
11/01/23 11/02/23 11/03/23
06:59 06:59 06:59
Intake Total 2725 / 2725
Output Total 1300 / 1300 1340 / 1340
Balance -1300 / -1300 1385 / 1385
[2023-11-02] MEDS: NSS (PRESERVATIVE FREE) 0.125 ML IV ×2 (09:54→15:51)
--- NOTE | 2023-11-02 14:11 | W.PN.UPDATE ---
Update Note
Progress Note Update
patient seen chart reviewed. and family friend at bedside. the patient remains confused. he was sleeping today and i efforts all of us made to engage with him did not prove fruitful. expressed concern re patient fevers. there is ? re
aspiration. the only change i made in prn medications was to decrease the ativan to o.25 mg to correspond with the standing dose of o.25 mg tid. believes the ativan is helping him. she does not believe he is being sedated by it. he does have
feeding tube in place at this time. will continue to follow although i do not see this as primarily psychiatric but rather tme seondary to underlying medical illness perhaps starting w covid and then superimposed complications.
[2023-11-02 16:26] LABS: Glucose - Point of Care 149 mg/dl (70-99)
--- NOTE | 2023-11-02 16:27 | W.PN.UPDATE ---
Update Note
Progress Note Update
returned to see mr kay. he had become agitated again . discussed with mrs kay a trial of seroquel. at this point we have peg tube in place so are not limited to meds that are not po. seroquel 25 mg bid with a prn as well. will also leave
the prn ativan in place for now. qtc is 444 on the monitor.
[2023-11-02] MEDS: NOVOLOG FLEXPEN-LOW RESISTANCE SC (16:57)
[2023-11-02] MEDS: LOVENOX 40 MG SC (16:57)
[2023-11-02] MEDS: SEROQUEL 25 MG TUBE ×2 (18:02→20:45)
--- NOTE | 2023-11-02 18:42 | PTCARENOTE ---
see nursing assessment. sinus rythym on monitor. pt continues with periods of agitation/confusion. tolerating tube feedings. picc line removed by iv team per order and peripheral iv placed. medsitter observation maintained.pt sats 98-100 on room air.
[2023-11-02] MEDS: REMERON ODT 15 MG PO (20:45)
[2023-11-03] VITALS (16 sets, daily range): BP systolic 95–153; BP diastolic 48–98; BMI 19.7
[2023-11-03 00:06] LABS: Glucose - Point of Care 145 mg/dl (70-99)
[2023-11-03] MEDS: LOPRESSOR 5 MG IV ×5 (00:08→23:07)
[2023-11-03] MEDS: NOVOLOG FLEXPEN 3 UNITS SC ×4 (00:11→23:26)
[2023-11-03] MEDS: NOVOLOG FLEXPEN-LOW RESISTANCE SC ×3 (00:19→23:29)
[2023-11-03] MEDS: NSS (PRESERVATIVE FREE) 0.125 ML IV ×4 (01:08→23:07)
[2023-11-03] MEDS: ATIVAN 0.25 MG IV ×4 (01:08→23:06)
[2023-11-03] MEDS: UNASYN IV ×2 (04:56→09:42)
[2023-11-03 05:18] LABS: % Basophils 0.7 % (0-2); % Eosinophils 2.3 % (0-6); % Immature Granulocytes 0.2 % (0-0.5); % Lymphocytes 27.8 % (20.5-51.1); % Monocytes 12.9 % (1.7-9.3); % Neutrophils 56.1 % (42.2-75.2); Absolute Eosinophils 0.1 10^3/uL (0-0.7); Absolute Lymphocytes 1.6 10^3/uL (1.2-3.4); Absolute Monocytes 0.7 10^3/uL (0.1-0.6); Absolute Neutrophils 3.1 10^3/uL (1.4-6.5); Hematocrit 28.4 % (39.0-52.0); Hemoglobin 9.8 g/dL (13.0-18.0); Mean Corp Hgb Conc. 34.5 g/dL (33.0-37.0); Mean Corpuscular Hgb 32.9 pg (27.0-31.0); Mean Corpuscular Volume 95.3 fL (80.0-94.0); Mean Platelet Volume 10.8 fL (7.4-10.4); Nucleated Red Blood Cells % 0 % (-); Platelet Count 246 10^3/uL (130-400); Red Blood Cell Count 2.98 10^6/uL (4.70-6.10); Red Cell Dist. Width 12.9 % (11.5-14.5); White Blood Cell Count 5.6 10^3/uL (4.8-10.8)
[2023-11-03 05:35] LABS: Blood Urea Nitrogen 23 mg/dl (9-20); Calcium 8.3 mg/dl (8.4-10.2); Carbon Dioxide 24 mmol/L (22-30); Chloride 105 mmol/L (98-107); Estimated Creatinine Clearance 76 ml/min; Glucose 127 mg/dl (70-99); Potassium 4.2 mmol/L (3.5-5.1); Sodium 133 mmol/L (135-145); eGFR > 60.00
--- NOTE | 2023-11-03 05:51 | PTCARENOTE ---
patient received from day shift. Patient is Ax0 and patient was sinus rhythm and sinus tachycardia throughout the night. Patient became agitated while we were cleaning him up and began kicking legs and grabbing onto staff. PRN dose of Ativan given.
Patient is tolerating tube feedings. Med-sitter monitoring for patient.
--- NOTE | 2023-11-03 07:47 | W.PN.HOSP.TC ---
Addendum entered and electronically signed by Júnior Bullard MD 11/03/23 15:37:
Updated over the phone today.
Repeated QTc 434 today.
Original Note:
Today's Communication/Plan
-
IV antibiotics. ID reeval.
Assessment / Plan
Assessment / Plan
Physical exam:
General: Acutely ill
HEENT: Normocephalic, Atraumatic and Moist Mucous Membranes
Respiratory: Coarse rhonchi in the bases; Negative Wheezes, or Rales
Cardiac: Regular Rhythm and S1/S2
GI: Soft, Nontender and Nondistended
Musculoskeletal: No Clubbing, No Cyanosis and No Edema
Neuro: Awake, Alert and Disoriented, nonpurposeful movement but spontaneously all 4 extremities, no focality deficits.
Psych: Lack of judgment and insight
A/P:
Toxic metabolic encephalopathy:
Brain MRI no acute abnormality
Etiology possible COVID-19 related encephalopathy and now superimposed with several acute insults during this hospital stay.
Continue monitor mental and behavioral status
Continue nonviolent restraints
Continue standing IV Ativan per psychiatry
Discussed with at bedside prior- confirms prior to admission patient was functional and doing his activity of daily living without any problems. Discussed with yesterday. Will update again when available.
Discussed with psychiatry today
Fever:
Suspicion for recurrent aspiration pneumonia in the setting of fever and worsening leukocytosis and abnormal lung sounds but also bacteremia.
Rebound COVID-19 possible but would not treat
Discussed with laboratory today and Western blot Lyme test came back negative for IgM and positive for IgG. It was not sent other tickborne illness testing.
WBC 15.1--> 5.6
chest x-ray with persistent/recurrent right lower lobe opacification
Blood cultures positive
Change IV Unasyn to IV cefepime
COVID-19:
Off isolation precautions
Status post 5 days of Paxlovid
Rebound COVID-19 possible but would not treat
Positive blood cultures:
Will request ID reevaluation
ID evaluated and changed Unasyn to IV cefepime.
Hyponatremia:
Mild
Continue to monitor
Acute hypoxic respiratory failure:
Oxygen as needed
Monitor respiratory status
Dysphagia:
Tolerating PEG feedings
TPN discontinued and central line as well.
Status post PEG on 10/30.
Urinary retention:
Continue following per urology recommendations due to urethral stricture
Past medical problems:
Hypertension
Dyslipidemia
Prediabetes mellitus
TIA/brain infarcts
PVD with carotid stenosis status post left CEA
Prostate cancer
DVT prophylaxis:
Lovenox 40 mg SQ daily
CODE STATUS:
Full code
Overall prognosis guarded
Total time spent on today's encounter was 52 minutes which included time spent in counseling the patient/family regarding diagnosis and treatment plan as listed above, goals of care, and symptom management. Case was discussed with nursing staff,
specialists, and care coordinators/case management. All labs and imaging personally reviewed by me. Remainder the time spent in detailed review of previous records, lab data, imaging, and other medical provider documentation.
Anticipated Discharge: > 48 hours
Subjective/Interval History
-
Date of Service: November 03, 2023
Patient still encephalopathic. Afebrile today.
Objective Data
-
Labs:
Laboratory Results
11/03/23
04:59
WBC 5.6
Hgb 9.8 L
Hct 28.4 L
Plt Count 246
Sodium 133 L
Potassium 4.2
Chloride 105
Carbon Dioxide 24
BUN 23 H
Creatinine 0.5 L
Glucose 127 H
Calcium 8.3 L
Vital Signs:
Vital Signs
Temp Pulse Resp BP Pulse Ox
97.6 F 74 15 144/66 100
11/03/23 07:00 11/03/23 06:00 11/03/23 06:00 11/03/23 06:00 11/03/23 06:00
I&O
11/02/23 11/03/23 11/04/23
06:59 06:59 06:59
Intake Total 2725 / 2725
Output Total 1340 / 1340 1600 / 1600
Balance 1385 / 1385 -1600 / -1600
[2023-11-03 08:15] LABS: Glucose - Point of Care 129 mg/dl (70-99)
[2023-11-03] MEDS: PREVACID 30 MG TUBE ×2 (09:41→20:55)
[2023-11-03] MEDS: MYCOSTATIN ORAL SUSPENSION 5 ML PO ×3 (09:41→20:55)
[2023-11-03] MEDS: ASPIRIN 300 MG RECTAL (09:41)
[2023-11-03] MEDS: SEROQUEL 25 MG TUBE ×2 (09:41→20:55)
--- NOTE | 2023-11-03 09:41 | W.PN.ID1 ---
Date of Service
Date of Service: November 03, 2023
Today's Communication
See below
Assessment / Plan
# Recurrence of fever
# GNR bacteremia 03/21
# Recurrent Aspiration pneumonia
# Dysphagia s/p PEG 10/31/23
# Urinary retention with goodwin
# Persistent encephalopathy
- UA without pyuria - unlikely source of GNR bacteremia
- ?possible source from recent PICC for TPN -> discontinued 11/01
- Aspiration also possible source of GNR bacteremia
- Repeat bcx neg to date.
- Change Unasyn to cefepime pending cx data.
-Follow temps.
# s/p Symptomatic COVID infection
- Symptom onset 10/14 evening
- s/p 5-day course of Paxlovid
- S/p 10d isolation
#Additional Past Medical History:
Mild dementia
Hypertension
Dyslipidemia
TIA
Left cerebellar chronic infarcts
Carotid stenosis s/p Left CEA
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
Prostate cancer status post prostatectomy
Heel, wrist and pelvis repair 1967
Chief Complaint
-: Pneumonia and Bacteremia
Subjective / Review of Systems
Reconsult for aspiration and bacteremia.
Chart reviewed. Pt remains confused, encephalopathic.
s/p PEG placement 10/30.
Developed fevers post-procedure.
Pt currently on restraint, very lethargic.
Vital Signs / Physical Exam
Vital Signs
Vital Signs
Temp Pulse Resp BP Pulse Ox
97.6 F 74 15 144/66 100
11/03/23 07:00 11/03/23 06:00 11/03/23 06:00 11/03/23 06:00 11/03/23 06:00
Selected Entries
10/31/23
19:58 11/01/23
06:28 11/01/23
19:23
Temp 100.9 F H 101 F H 100.9 F H
Selected Entries
11/02/23
04:26
Temp 101.1 F H
Physical Exam
Constitutional: Acutely Ill
Eyes: Sclera Anicteric
Cardiovascular: Regular Rate and S1/S2
Pulmonary: Other (poor respiratory effort)
Gastrointestinal: Soft, Non Tender, Non Distended and Normal Bowel Sounds
Genito-Urinary: Negative CVA Tenderness
Neurological: Other (Lethargy)
Objective Data
Lab Data
Lab Results
11/03/23 04:59
11/03/23 04:59
PT 14.5 Sec (11.4-14.6) 10/27/23 08:56
INR 1.12 10/27/23 08:56
Estimated Creat Clear 76 ml/min 11/03/23 04:59
Total Bilirubin 0.5 mg/dl (0.2-1.3) 11/02/23 05:07
AST 27 U/L (17-59) 11/02/23 05:07
ALT 25 U/L (0-50) 11/02/23 05:07
Alkaline Phosphatase 76 U/L (38-126) 11/02/23 05:07
Most recent labs reviewed.
Micro Results:
11/01/23 11:22 Blood Culture - Preliminary
Blood/Venous Positive culture in progress
Gram Stain - Preliminary
11/01/23 20:48 Blood Culture - Preliminary
Blood/Venous No Growth in 24 hours- Final report to follow
11/01/23 20:48 Urine Culture - Pending
Urine
10/18/23 10:33 Blood Culture - Final
Blood/Venous No Growth - Final Report
10/18/23 18:21 Urine Culture - Final
Urine NO GROWTH
10/16/23 12:56 Urine Culture - Final
Urine NO GROWTH
10/22/2023 CXR (portable): Moderate opacification of the right infrahilar region and mid right lower lung field concerning for developing pneumonia. A tiny left pleural effusion is noted. No pneumothorax seen.
10/16/23 CXR: No acute cardiopulmonary process.
10/17/23 Vascular US: Right carotid: Extensive atherosclerotic disease with peak systolic velocity within the proximal ICA measuring 616 cm/s. Elevated end-diastolic velocity and ICA/CCA ratio compatible with a greater than 70% stenosis. Left
carotid: Mild calcified plaque/intimal thickening within the bulb proximal ICA causing less than 50% luminal narrowing.
10/18/23 CXR: There are new areas of airspace disease in both lower lobes, left greater than right. Findings suggest pneumonia.
10/19/23 Brain MRI: No acute intracranial abnormality. Prior small infarcts within the left cerebellar hemisphere, similar in appearance prior. Mucosal thickening with layering secretions in the right maxillary sinus.
11/01/23 CXR: Some hazy right basilar opacification which could represent pneumonitis.
--- NOTE | 2023-11-03 11:34 | W.PN.UPDATE ---
Update Note
Progress Note Update
patient seen chart reviewed. discussed with nursing. the patient is sedated. nursing suggested dc of ativan standing order which i have done. will see if seroquel alone helps mr kay to remain comfortable. we could rouse him enough to say hello
and he did acknowledge with a response (nodding) . at one point started pulling at restraints. discussed w nursing whether to remove but fear remains that he will pull at iv/peg etc. ativan prn left in place.
--- NOTE | 2023-11-03 13:03 | CM ---
CM following re: discharge planning.
Reviewed pt's chart, met with pt. Pt continues with periods of agitation/confusion, remains on 2 points restraints, med sitter.
PT and OT have been recommending SNF level of care. [facility] is looking for to accept the pt for a short term rehab and they requested updated pt's clinical with improved pt's behavior closer to discharge.
D/C plan: [facility] when medically and behaviorally stable.
CM will follow with discharge plan updates as hospitalization progresses
[2023-11-03] MEDS: STERILE WATER FOR INJECTION 10 ML IV ×3 (13:30→23:09)
[2023-11-03] MEDS: MAXIPIME 1000 MG IV ×3 (13:31→23:09)
[2023-11-03 16:13] LABS: Glucose - Point of Care 162 mg/dl (70-99)
--- NOTE | 2023-11-03 17:47 | PTCARENOTE ---
Patient was drowsy this morning, nonverbal. No patient is able to say hello, asked nurse how she is doing. Patient is listening to music and singin songs. Patient is attempting to pull out goodwin and other tubes/ wires and he attempts to climb out of
bed by putting legs over side of bed. Bilateral soft wrist restraint in use as per doctors orders. EKG completed to monitor QTc, discussed with Dr. Escobar.
[2023-11-03] MEDS: MYCOSTATIN ORAL SUSPENSION PO (18:04)
[2023-11-03] MEDS: LOVENOX 40 MG SC (18:11)
[2023-11-03] MEDS: NOVOLOG FLEXPEN-LOW RESISTANCE 1 UNITS SC (18:13)
--- NOTE | 2023-11-03 18:19 | PTCARENOTE ---
while restrained patient was physically aggressive towards nurses, pulled out iv, pulled off stat lock for goodwin, and was trying to climb out of bed. Patient repositioned and IV Ativan administered.
[2023-11-03] MEDS: REMERON ODT 15 MG PO (20:55)
[2023-11-03 23:36] LABS: Glucose - Point of Care 139 mg/dl (70-99)
[2023-11-04] VITALS (16 sets, daily range): BP systolic 99–173; BP diastolic 48–101; PULSE 80; O2SAT 98; BMI 19.3
[2023-11-04 04:58] LABS: Hematocrit 29.4 % (39.0-52.0); Hemoglobin 10.1 g/dL (13.0-18.0); Mean Corp Hgb Conc. 34.4 g/dL (33.0-37.0); Mean Corpuscular Hgb 32.8 pg (27.0-31.0); Mean Corpuscular Volume 95.5 fL (80.0-94.0); Mean Platelet Volume 10.5 fL (7.4-10.4); Platelet Count 287 10^3/uL (130-400); Red Blood Cell Count 3.08 10^6/uL (4.70-6.10); Red Cell Dist. Width 12.9 % (11.5-14.5); White Blood Cell Count 5.9 10^3/uL (4.8-10.8)
[2023-11-04 05:16] LABS: Blood Urea Nitrogen 22 mg/dl (9-20); Calcium 8.5 mg/dl (8.4-10.2); Carbon Dioxide 28 mmol/L (22-30); Chloride 103 mmol/L (98-107); Estimated Creatinine Clearance 74 ml/min; Glucose 139 mg/dl (70-99); Sodium 135 mmol/L (135-145); eGFR > 60.00
[2023-11-04 05:29] LABS: % Basophils 0.5 % (0-2); % Eosinophils 2.4 % (0-6); % Immature Granulocytes 0.3 % (0-0.5); % Lymphocytes 34.2 % (20.5-51.1); % Monocytes 10.8 % (1.7-9.3); % Neutrophils 51.8 % (42.2-75.2); Absolute Eosinophils 0.1 10^3/uL (0-0.7); Absolute Monocytes 0.6 10^3/uL (0.1-0.6); Absolute Neutrophils 3.1 10^3/uL (1.4-6.5); Nucleated Red Blood Cells % 0 % (-)
[2023-11-04] MEDS: MAXIPIME 1000 MG IV (05:47)
[2023-11-04] MEDS: STERILE WATER FOR INJECTION 10 ML IV ×2 (05:47→12:54)
[2023-11-04] MEDS: LOPRESSOR 5 MG IV ×3 (05:51→17:37)
--- NOTE | 2023-11-04 08:16 | PTCARENOTE ---
Patient is awake, alert and oriented to person, able to follow commands and answer basic questions. He is denying pain when asked, singing the Eagles song. Sitting up in bed with bed alarm and bilateral wrist restraints on. Will monitor for attempts
to pull on tubes. At this time patient is calm.
[2023-11-04 08:22] LABS: Glucose - Point of Care 130 mg/dl (70-99)
[2023-11-04] MEDS: PREVACID 30 MG TUBE ×2 (08:40→20:21)
[2023-11-04] MEDS: SEROQUEL 25 MG TUBE ×2 (08:40→20:23)
[2023-11-04] MEDS: NOVOLOG FLEXPEN 3 UNITS SC (08:41)
[2023-11-04] MEDS: MYCOSTATIN ORAL SUSPENSION 5 ML PO ×3 (08:41→20:22)
[2023-11-04] MEDS: ATIVAN IV (08:41)
[2023-11-04] MEDS: NOVOLOG FLEXPEN-LOW RESISTANCE SC ×3 (08:42→17:56)
--- NOTE | 2023-11-04 08:44 | W.PN.HOSP.TC ---
Addendum entered and electronically signed by Júnior Bullard MD 11/05/23 15:26:
Sepsis with bacteremia-improving.
Original Note:
Today's Communication/Plan
-
Adjusted benzodiazepines. Continue IV antibiotics. Continue Tube feeding
Assessment / Plan
Assessment / Plan
Physical exam:
General: Acutely ill
HEENT: Normocephalic, Atraumatic and Moist Mucous Membranes
Respiratory: Coarse rhonchi in the bases; Negative Wheezes, or Rales
Cardiac: Regular Rhythm and S1/S2
GI: Soft, Nontender and Nondistended
Musculoskeletal: No Clubbing, No Cyanosis and No Edema
Neuro: Awake, Alert and Disoriented, nonpurposeful movement but spontaneously all 4 extremities, no focality deficits.
Psych: Lack of judgment and insight
A/P:
Toxic metabolic encephalopathy:
Brain MRI no acute abnormality
Etiology possible COVID-19 related encephalopathy and now superimposed with several acute insults during this hospital stay.
Continue monitor mental and behavioral status
Continue nonviolent restraints
Continue standing IV Ativan per psychiatry-->stopping today (psych meant to stop yesterday)
Discussed with yesterday
Fever:
Suspicion for recurrent aspiration pneumonia in the setting of fever and worsening leukocytosis and abnormal lung sounds but also bacteremia.
Rebound COVID-19 possible but would not treat
Discussed with laboratory today and Western blot Lyme test came back negative for IgM and positive for IgG. It was not sent other tickborne illness testing.
WBC 15.1--> 5.9
chest x-ray with persistent/recurrent right lower lobe opacification
Blood cultures positive-->Serratia M
Change IV Unasyn to IV ceftriaxone
Hyperglycemia:
Stop scheduled insulin and add insulin sliding scale
Check HbA1c
COVID-19:
Off isolation precautions
Status post 5 days of Paxlovid
Rebound COVID-19 possible but would not treat
Positive blood cultures:
Requested ID reevaluation
ID evaluated and changed Unasyn to IV ceftriaxone.
Hyponatremia:
Mild
Continue to monitor
Acute hypoxic respiratory failure:
Oxygen as needed
Monitor respiratory status
Dysphagia:
Tolerating PEG feedings
TPN discontinued and central line as well.
Status post PEG on 10/30.
Urinary retention:
Continue following per urology recommendations due to urethral stricture
Past medical problems:
Hypertension
Dyslipidemia
Prediabetes mellitus
TIA/brain infarcts
PVD with carotid stenosis status post left CEA
Prostate cancer
DVT prophylaxis:
Lovenox 40 mg SQ daily
CODE STATUS:
Full code
Overall prognosis guarded
Total time spent on today's encounter was 52 minutes which included time spent in counseling the patient/family regarding diagnosis and treatment plan as listed above, goals of care, and symptom management. Case was discussed with nursing staff,
specialists, and care coordinators/case management. All labs and imaging personally reviewed by me. Remainder the time spent in detailed review of previous records, lab data, imaging, and other medical provider documentation.
Anticipated Discharge: > 48 hours
Subjective/Interval History
-
Date of Service: November 04, 2023
Patient benzodiazepines discontinued this morning and seems to be more alert. Afebrile.
Objective Data
-
Labs:
Laboratory Results
11/04/23
04:28
WBC 5.9
Hgb 10.1 L
Hct 29.4 L
Plt Count 287
Sodium 135
Potassium 4.0
Chloride 103
Carbon Dioxide 28
BUN 22 H
Creatinine 0.6 L
Glucose 139 H
Calcium 8.5
Vital Signs:
Vital Signs
Temp Pulse Resp BP Pulse Ox
97.4 F 76 20 162/71 99
11/04/23 07:00 11/04/23 06:00 11/04/23 06:00 11/04/23 06:00 11/04/23 06:00
I&O
11/03/23 11/04/23 11/05/23
06:59 06:59 06:59
Intake Total 960 / 960
Output Total 1600 / 1600 1250 / 1250
Balance -1600 / -1600 -290 / -290
[2023-11-04] MEDS: NSS (PRESERVATIVE FREE) IV (08:49)
[2023-11-04] MEDS: ASPIRIN RECTAL (09:03)
[2023-11-04] MEDS: LOW STRENGTH ASPIRIN 81 MG TUBE (09:07)
--- NOTE | 2023-11-04 09:24 | W.PN.ID1 ---
Date of Service
Date of Service: November 04, 2023
Today's Communication
Narrow cefepime to ceftriaxone.
Assessment / Plan
# Recurrence of fever - resolved
# Serratia bacteremia / set (11/01/23)
# Recurrent Aspiration pneumonia
# Dysphagia s/p PEG 10/31/23
# Urinary retention with goodwin
# Persistent encephalopathy
- Ucx neg
- - Repeat bcx neg to date.
- ?possible source from recent PICC for TPN -> discontinued 11/01 (no cath tip cx)
- Aspiration also possible source of GNR bacteremia
- Narrow cefepime to ceftriaxone (d2 abx)
# s/p Symptomatic COVID infection
- Symptom onset 10/14 evening
- s/p 5-day course of Paxlovid
- S/p 10d isolation
#Additional Past Medical History:
Mild dementia
Hypertension
Dyslipidemia
TIA
Left cerebellar chronic infarcts
Carotid stenosis s/p Left CEA
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
Prostate cancer status post prostatectomy
Heel, wrist and pelvis repair 1967
Chief Complaint
-: Pneumonia and Bacteremia
Subjective / Review of Systems
More alert. Sitting up side of bed with PT/OT.
Vital Signs / Physical Exam
Vital Signs
Vital Signs
Temp Pulse Resp BP Pulse Ox
97.4 F 76 20 162/71 99
11/04/23 07:00 11/04/23 06:00 11/04/23 06:00 11/04/23 06:00 11/04/23 06:00
Physical Exam
Pulmonary: Clear
Gastrointestinal: Soft, Non Tender, Non Distended and Normal Bowel Sounds
Genito-Urinary: Negative CVA Tenderness
Neurological: Awake and Alert
Psychological: Confused
Objective Data
Lab Data
Lab Results
11/04/23 04:28
11/04/23 04:28
PT 14.5 Sec (11.4-14.6) 10/27/23 08:56
INR 1.12 10/27/23 08:56
Estimated Creat Clear 74 ml/min 11/04/23 04:28
Total Bilirubin 0.5 mg/dl (0.2-1.3) 11/02/23 05:07
AST 27 U/L (17-59) 11/02/23 05:07
ALT 25 U/L (0-50) 11/02/23 05:07
Alkaline Phosphatase 76 U/L (38-126) 11/02/23 05:07
Most recent labs reviewed.
Micro Results:
11/01/23 11:22 Blood Culture - Preliminary
Blood/Venous Serratia marcescens
Gram Stain - Preliminary
11/01/23 20:48 Blood Culture - Preliminary
Blood/Venous No Growth in 48 hours- Final report to follow
11/01/23 20:48 Urine Culture - Final
Urine NO GROWTH
10/18/23 10:33 Blood Culture - Final
Blood/Venous No Growth - Final Report
10/18/23 18:21 Urine Culture - Final
Urine NO GROWTH
10/16/23 12:56 Urine Culture - Final
Urine NO GROWTH
10/22/2023 CXR (portable): Moderate opacification of the right infrahilar region and mid right lower lung field concerning for developing pneumonia. A tiny left pleural effusion is noted. No pneumothorax seen.
10/16/23 CXR: No acute cardiopulmonary process.
10/17/23 Vascular US: Right carotid: Extensive atherosclerotic disease with peak systolic velocity within the proximal ICA measuring 616 cm/s. Elevated end-diastolic velocity and ICA/CCA ratio compatible with a greater than 70% stenosis. Left
carotid: Mild calcified plaque/intimal thickening within the bulb proximal ICA causing less than 50% luminal narrowing.
10/18/23 CXR: There are new areas of airspace disease in both lower lobes, left greater than right. Findings suggest pneumonia.
10/19/23 Brain MRI: No acute intracranial abnormality. Prior small infarcts within the left cerebellar hemisphere, similar in appearance prior. Mucosal thickening with layering secretions in the right maxillary sinus.
11/01/23 CXR: Some hazy right basilar opacification which could represent pneumonitis.
--- NOTE | 2023-11-04 11:15 | W.PN.UPDATE ---
Update Note
Progress Note Update
patient seen chart reviewed. discussed with nursing. nursing reports patient is much better this am and earlier today he had told her his name and where he is. he has been calm and cooperative. when i saw him i would say he was rather sedated. i
tried to get him to talk to me but the best i could get was he opened his eyes lookes at me nodded and closed his eyes and went back to sleep. nursing reports that last evening he had a bit of a time and suggests that he is . would change
the seroquel as follows. 12.5 mg bid and 25 mg q hs. perhaps this would avoid the am sedation i noted today. would replace the ativan prn at a very low dose o.25 mg q 8h
[2023-11-04 12:24] LABS: Glucose - Point of Care 119 mg/dl (70-99)
[2023-11-04] MEDS: ROCEPHIN 1000 MG IV (12:54)
--- NOTE | 2023-11-04 13:45 | CM ---
Patient with Dx Dysphagia with aspiration risk, Acute hypoxic respiratory failure, TME from Covid and also UTI, Reported weakness/ataxia. Covid + 10/15 - Standard Precautions. Room air. Jevity tube feeds via PEG. Seen by Psych. Per nursing; A/O,
wrist restraints, Alhajisitter. PT & OT 11/03; requires assist of 2, recommend skilled rehab.
Clinicals for SNF referral updated. [facility] is considering.
Plan follow up with [facility] re; acceptance once out of restraints/no agitated-adverse behaviors.
--- NOTE | 2023-11-04 14:07 | PN.CDI ---
CDI
- -
CDI:
Physician Documentation Request
Admit Date: 10/17/23 17:23
Dear Doctor Aleah,
Clinical Indicators:
Patient admitted with COVID 19.
11/02 PN, 'Suspicion for recurrent aspiration pneumonia in the setting of fever and worsening leukocytosis and abnormal lung sounds but also bacteremia.'
WBC:
11/01/23
04:07
WBC 15.1 H
Temp:
11/01/23
06:28
Temp 101 F H
HR/RR trend:
11/01/23
03:58 11/01/23
06:20 11/01/23
08:00
Pulse 115 106 105
Resp Rate 28 22 22
Please clarify which of the following most accurately describes the status of the patient's infection:
Sepsis
- Systemic manifestations of infection, with 2 or more SIRS criteria which include:
- Fever >100.4 degrees F or hypothermia < 96.8 degrees F
- Leukocytosis - WBC > 12,000 or leukopenia - WBC < 4,000 or > 10% bands
- Tachycardia > 90 beats per minute
- Tachypnea - RR > 20 breaths per minute or PaCO2 , 32mmHg
Source: Merck Manual 2013
- Indicate the known or suspected organism
Bacteremia only
- Abnormal lab finding only, does not indicate systemic illness
Other
Use of terms such as suspected, likely, concern for, or probable (associated with a specific diagnosis that is being evaluated, monitored, or treated as if it exists) are acceptable and can be coded in the inpatient setting, when documented at the
time of discharge.
Thank you,
Idania Ortega RN BSN
CDI Specialist
available via tiger text
Please use your independent medical judgment in providing your response.
[2023-11-04] MEDS: SEROQUEL 12.5 MG TUBE (17:35)
[2023-11-04] MEDS: LOVENOX 40 MG SC (17:36)
[2023-11-04] MEDS: MYCOSTATIN ORAL SUSPENSION PO (17:37)
[2023-11-04 17:41] LABS: Glucose - Point of Care 99 mg/dl (70-99)
--- NOTE | 2023-11-04 17:57 | PTCARENOTE ---
Patient was improved today, more cooperative and speech is clearer and he is able to have conversations with nurses. Patient continues to try to pull on tubes and climb out of bed. Was aggressive with nurse only one time this shift. Tolerating tube
feeds, no nausea or vomiting. Aspiration precautions enforced. at bedside today. Patient denying pain when asked.
[2023-11-04] MEDS: REMERON ODT 15 MG PO (20:21)
[2023-11-04] MEDS: ATIVAN 0.25 MG TUBE (21:49)
[2023-11-05] VITALS (10 sets, daily range): BP systolic 137–188; BP diastolic 62–128; BMI 19.0
[2023-11-05] MEDS: LOPRESSOR 5 MG IV ×5 (00:05→23:49)
[2023-11-05 00:34] LABS: Glucose - Point of Care 145 mg/dl (70-99)
[2023-11-05 03:48] LABS: % Basophils 0.5 % (0-2); % Eosinophils 1.8 % (0-6); % Immature Granulocytes 0.3 % (0-0.5); % Lymphocytes 22.9 % (20.5-51.1); % Monocytes 8.1 % (1.7-9.3); % Neutrophils 66.4 % (42.2-75.2); Absolute Eosinophils 0.1 10^3/uL (0-0.7); Absolute Lymphocytes 1.8 10^3/uL (1.2-3.4); Absolute Monocytes 0.6 10^3/uL (0.1-0.6); Absolute Neutrophils 5.2 10^3/uL (1.4-6.5); Hematocrit 31.4 % (39.0-52.0); Hemoglobin 10.8 g/dL (13.0-18.0); Mean Corp Hgb Conc. 34.4 g/dL (33.0-37.0); Mean Corpuscular Hgb 32.3 pg (27.0-31.0); Mean Platelet Volume 10.6 fL (7.4-10.4); Nucleated Red Blood Cells % 0 % (-); Platelet Count 312 10^3/uL (130-400); Red Blood Cell Count 3.34 10^6/uL (4.70-6.10); Red Cell Dist. Width 12.8 % (11.5-14.5); White Blood Cell Count 7.8 10^3/uL (4.8-10.8)
[2023-11-05 04:06] LABS: Blood Urea Nitrogen 22 mg/dl (9-20); Calcium 8.6 mg/dl (8.4-10.2); Carbon Dioxide 26 mmol/L (22-30); Chloride 103 mmol/L (98-107); Estimated Creatinine Clearance 73 ml/min; Glucose 135 mg/dl (70-99); Potassium 4.5 mmol/L (3.5-5.1); Sodium 134 mmol/L (135-145); eGFR > 60.00
--- NOTE | 2023-11-05 05:32 | PTCARENOTE ---
Patient remains in b/l wrist restraints. Agitation and confusion continues. Medsitter in place. Unable to be redirected. Prn ativan given x1 without much relief.
[2023-11-05] MEDS: SEROQUEL 12.5 MG TUBE ×2 (08:37→17:40)
[2023-11-05] MEDS: MYCOSTATIN ORAL SUSPENSION 5 ML PO ×4 (08:37→20:08)
[2023-11-05] MEDS: LOW STRENGTH ASPIRIN 81 MG TUBE (08:38)
[2023-11-05] MEDS: PREVACID 30 MG TUBE ×2 (08:39→20:07)
[2023-11-05] MEDS: NOVOLOG FLEXPEN-LOW RESISTANCE SC ×4 (09:19→23:54)
--- NOTE | 2023-11-05 10:25 | W.PN.HOSP.TC ---
Addendum entered and electronically signed by Júnior Bullard MD 11/05/23 15:27:
Sepsis with bacteremia, improving
Original Note:
Today's Communication/Plan
-
TF. IV antibiotics.
Assessment / Plan
Assessment / Plan
Physical exam:
General: Acutely ill
HEENT: Normocephalic, Atraumatic and Moist Mucous Membranes
Respiratory: Clear to auscultation bilateral; Negative Wheezes, or Rales
Cardiac: Regular Rhythm and S1/S2
GI: Soft, Nontender and Nondistended
Musculoskeletal: No Clubbing, No Cyanosis and No Edema
Neuro: Awake, Alert and oriented today, no neurological focality deficits
Psych: Calmer with less agitation, judgment and insight still impaired but improving
A/P:
Toxic metabolic encephalopathy:
More alert today. Able to answer specific questions from family and sometimes derails on answers but overall much improved.
At this point behaving more as a delirium but overall improving.
Brain MRI no acute abnormality
Etiology possible COVID-19 related encephalopathy and now superimposed with several acute insults during this hospital stay.
Continue monitor mental and behavioral status
Continue nonviolent restraints but may be able to take off over the next few days if continues to improve.
Psychiatry stopped standing doses of Ativan. Continue on Seroquel, Mirtazapine and Ativan as needed-low dose.
Discussed with at bedside today
Serratia Marcescens Bacteremia(CLABSI):
Continue IV ceftriaxone
Central line discontinued
ID reconsult appreciated
Remains afebrile
WBC 7.8 today
Prediabetes mellitus:
Insulin sliding scale while in the hospital
Hemoglobin A1c 5.8
Dysphagia:
Tolerating PEG feedings
TPN discontinued
Status post PEG on 10/30.
Speech therapy reeval over the next 24 to 48 hours
Aspiration pneumonia:
Status post treated with course of Unasyn
COVID-19:
Off isolation precautions
Status post treated with 5 days of Paxlovid
Western blot Lyme test came back negative for IgM and positive for IgG.
Hyponatremia:
Mild
Continue to monitor
Acute hypoxic respiratory failure:
Oxygen as needed
Monitor respiratory status
Urinary retention:
Continue following per urology recommendations due to urethral stricture
Past medical problems:
Hypertension
Dyslipidemia
Prediabetes mellitus
TIA/brain infarcts
PVD with carotid stenosis status post left CEA
Prostate cancer
DVT prophylaxis:
Lovenox 40 mg SQ daily
CODE STATUS:
Full code
Total time spent on today's encounter was 52 minutes which included time spent in counseling the patient/family regarding diagnosis and treatment plan as listed above, goals of care, and symptom management. Case was discussed with nursing staff,
specialists, and care coordinators/case management. All labs and imaging personally reviewed by me. Remainder the time spent in detailed review of previous records, lab data, imaging, and other medical provider documentation.
Anticipated Discharge: > 48 hours
Subjective/Interval History
-
Date of Service: November 05, 2023
Patient more alert today. Afebrile.
Objective Data
-
Labs:
Laboratory Results
11/05/23
03:22
WBC 7.8
Hgb 10.8 L
Hct 31.4 L
Plt Count 312
Sodium 134 L
Potassium 4.5
Chloride 103
Carbon Dioxide 26
BUN 22 H
Creatinine 0.6 L
Glucose 135 H
Calcium 8.6
Vital Signs:
Vital Signs
Temp Pulse Resp BP Pulse Ox
97.4 F 94 18 146/88 97
11/05/23 07:05 11/05/23 02:00 11/05/23 02:00 11/05/23 02:00 11/05/23 02:00
I&O
11/04/23 11/05/23 11/06/23
06:59 06:59 06:59
Intake Total 960 / 960 1920 / 1920
Output Total 1250 / 1250 1650 / 1650 310 / 310
Balance -290 / -290 270 / 270 -310 / -310
[2023-11-05] MEDS: STERILE WATER FOR INJECTION 10 ML IV (12:38)
[2023-11-05] MEDS: ROCEPHIN 1000 MG IV (12:39)
[2023-11-05 13:46] LABS: Glucose - Point of Care 159 mg/dl (70-99)
[2023-11-05] MEDS: NOVOLOG FLEXPEN-LOW RESISTANCE 1 UNITS SC (13:56)
[2023-11-05 17:34] LABS: Glucose - Point of Care 125 mg/dl (70-99)
[2023-11-05] MEDS: LOVENOX 40 MG SC (17:40)
[2023-11-05] MEDS: SEROQUEL 25 MG TUBE (20:08)
[2023-11-05] MEDS: REMERON ODT 15 MG PO (20:08)
[2023-11-05] MEDS: ATIVAN 0.25 MG TUBE (20:08)
[2023-11-05 23:58] LABS: Glucose - Point of Care 125 mg/dl (70-99)
[2023-11-06] VITALS (13 sets, daily range): BP systolic 79–170; BP diastolic 45–119; BMI 18.7
[2023-11-06 03:38] LABS: % Basophils 0.5 % (0-2); % Eosinophils 2.8 % (0-6); % Immature Granulocytes 0.3 % (0-0.5); % Lymphocytes 27.7 % (20.5-51.1); % Monocytes 10.5 % (1.7-9.3); % Neutrophils 58.2 % (42.2-75.2); Absolute Eosinophils 0.2 10^3/uL (0-0.7); Absolute Lymphocytes 1.7 10^3/uL (1.2-3.4); Absolute Monocytes 0.7 10^3/uL (0.1-0.6); Absolute Neutrophils 3.6 10^3/uL (1.4-6.5); Hematocrit 31.8 % (39.0-52.0); Hemoglobin 10.8 g/dL (13.0-18.0); Mean Corpuscular Hgb 32.3 pg (27.0-31.0); Mean Corpuscular Volume 95.2 fL (80.0-94.0); Mean Platelet Volume 10.2 fL (7.4-10.4); Nucleated Red Blood Cells % 0 % (-); Platelet Count 298 10^3/uL (130-400); Red Blood Cell Count 3.34 10^6/uL (4.70-6.10); Red Cell Dist. Width 12.7 % (11.5-14.5); White Blood Cell Count 6.2 10^3/uL (4.8-10.8)
[2023-11-06 03:53] LABS: Blood Urea Nitrogen 19 mg/dl (9-20); Calcium 8.7 mg/dl (8.4-10.2); Carbon Dioxide 27 mmol/L (22-30); Chloride 101 mmol/L (98-107); Estimated Creatinine Clearance 73 ml/min; Glucose 124 mg/dl (70-99); Potassium 4.4 mmol/L (3.5-5.1); Sodium 133 mmol/L (135-145); eGFR > 60.00
[2023-11-06] MEDS: LOPRESSOR 5 MG IV ×3 (05:17→17:14)
[2023-11-06] MEDS: NOVOLOG FLEXPEN-LOW RESISTANCE SC ×3 (05:22→18:07)
[2023-11-06 05:28] LABS: Glucose - Point of Care 138 mg/dl (70-99)
--- NOTE | 2023-11-06 06:32 | PTCARENOTE ---
Patient with confusion overnight and attempts to pull out peg/goodwin. B/l wrist restraints remain in place. PRN ativan given with little relief.
[2023-11-06] MEDS: MYCOSTATIN ORAL SUSPENSION 5 ML PO ×3 (08:33→19:07)
[2023-11-06] MEDS: SEROQUEL 12.5 MG TUBE ×2 (08:33→17:13)
[2023-11-06] MEDS: PREVACID 30 MG TUBE ×2 (08:33→19:07)
[2023-11-06] MEDS: LOW STRENGTH ASPIRIN 81 MG TUBE (08:33)
--- NOTE | 2023-11-06 09:36 | W.PN.HOSP.TC ---
Today's Communication/Plan
-
Continue IV antibiotics and TF.
Assessment / Plan
Assessment / Plan
Physical exam:
General: Acutely ill
HEENT: Normocephalic, Atraumatic and Moist Mucous Membranes
Respiratory: Clear to auscultation bilateral; Negative Wheezes, or Rales
Cardiac: Regular Rhythm and S1/S2
GI: Soft, Nontender and Nondistended
Musculoskeletal: No Clubbing, No Cyanosis and No Edema
Neuro: Awake, Alert and oriented today, no neurological focality deficits
Psych: Calmer with less agitation, judgment and insight still impaired but improving
A/P:
Toxic metabolic encephalopathy:
More alert today. Able to answer specific questions from family and sometimes derails on answers but overall much improved.
At this point behaving more as a delirium but overall improving.
Brain MRI no acute abnormality
Etiology possible COVID-19 related encephalopathy and now superimposed with several acute insults during this hospital stay.
Continue monitor mental and behavioral status
Continue nonviolent restraints but may be able to take off over the next few days if continues to improve.
Psychiatry stopped standing doses of Ativan. Continue on Seroquel, Mirtazapine and Ativan as needed-low dose.
Speech therapy will reevaluate tomorrow
We will ask PT to reevaluate tomorrow as well to get him out of bed
Discussed with at bedside today as usual
Sepsis with bacteremia, Serratia Marcescens Bacteremia(CLABSI):
Continue IV ceftriaxone
Central line discontinued
ID reconsult appreciated
Remains afebrile
WBC 6.2 today
Prediabetes mellitus:
Insulin sliding scale while in the hospital
Hemoglobin A1c 5.8
Dysphagia:
Tolerating PEG feedings
TPN discontinued
Status post PEG on 10/30.
Speech therapy reeval over the next 24 to 48 hours
Aspiration pneumonia:
Status post treated with course of Unasyn
COVID-19:
Off isolation precautions
Status post treated with 5 days of Paxlovid
Western blot Lyme test came back negative for IgM and positive for IgG.
Hyponatremia:
Mild
Continue to monitor
Acute hypoxic respiratory failure:
Resolved
Urinary retention:
Continue following per urology recommendations due to urethral stricture
Will discuss with urology tomorrow for how long Ford catheter and wanted to avoid trial
Past medical problems:
Hypertension
Dyslipidemia
Prediabetes mellitus
TIA/brain infarcts
PVD with carotid stenosis status post left CEA
Prostate cancer
DVT prophylaxis:
Lovenox 40 mg SQ daily
CODE STATUS:
Full code
Total time spent on today's encounter was 52 minutes which included time spent in counseling the patient/family regarding diagnosis and treatment plan as listed above, goals of care, and symptom management. Case was discussed with nursing staff,
specialists, and care coordinators/case management. All labs and imaging personally reviewed by me. Remainder the time spent in detailed review of previous records, lab data, imaging, and other medical provider documentation.
Anticipated Discharge: > 48 hours
Subjective/Interval History
-
Date of Service: November 06, 2023
Patient seen and examined today. Remains afebrile. Alert and talkative when family at bedside.
Objective Data
-
Labs:
Laboratory Results
11/06/23
03:17
WBC 6.2
Hgb 10.8 L
Hct 31.8 L
Plt Count 298
Sodium 133 L
Potassium 4.4
Chloride 101
Carbon Dioxide 27
BUN 19
Creatinine 0.6 L
Glucose 124 H
Calcium 8.7
Vital Signs:
Vital Signs
Temp Pulse Resp BP Pulse Ox
97.7 F 84 22 141/78 100
11/06/23 07:30 11/06/23 05:03 11/06/23 05:03 11/06/23 05:03 11/06/23 05:03
I&O
11/05/23 11/06/23 11/07/23
06:59 06:59 06:59
Intake Total 1920 / 1920
Output Total 1650 / 1650 1610 / 1610 200 / 200
Balance 270 / 270 -1610 / -1610 -200 / -200
--- NOTE | 2023-11-06 10:05 | PTCARENOTE ---
pt repeatedly attempting to full out goodwin and peg tube despite restraints. Distraction attempts tried. Pt continues to be confused.
[2023-11-06 12:14] LABS: Glucose - Point of Care 136 mg/dl (70-99)
[2023-11-06] MEDS: MYCOSTATIN ORAL SUSPENSION PO (13:02)
[2023-11-06] MEDS: ROCEPHIN 1000 MG IV (13:02)
[2023-11-06] MEDS: STERILE WATER FOR INJECTION 10 ML IV (13:02)
[2023-11-06] MEDS: LOVENOX 40 MG SC (17:13)
[2023-11-06 18:17] LABS: Glucose - Point of Care 120 mg/dl (70-99)
[2023-11-06] MEDS: ATIVAN 0.25 MG TUBE (19:07)
[2023-11-06] MEDS: SEROQUEL 25 MG TUBE (19:52)
[2023-11-06] MEDS: REMERON ODT 15 MG PO (19:52)
[2023-11-07] VITALS (16 sets, daily range): BP systolic 92–160; BP diastolic 42–112; BMI 18.8
[2023-11-07] MEDS: LOPRESSOR 5 MG IV ×2 (00:03→06:35)
[2023-11-07 00:37] LABS: Glucose - Point of Care 105 mg/dl (70-99)
[2023-11-07] MEDS: NOVOLOG FLEXPEN-LOW RESISTANCE SC ×4 (00:40→17:23)
[2023-11-07 03:14] LABS: Glucose - Point of Care 110 mg/dl (70-99)
[2023-11-07 04:46] LABS: Hematocrit 35.1 % (39.0-52.0); Hemoglobin 11.8 g/dL (13.0-18.0); Mean Corp Hgb Conc. 33.6 g/dL (33.0-37.0); Mean Corpuscular Hgb 33.5 pg (27.0-31.0); Mean Corpuscular Volume 99.7 fL (80.0-94.0); Mean Platelet Volume 10.7 fL (7.4-10.4); Platelet Count 306 10^3/uL (130-400); Red Blood Cell Count 3.52 10^6/uL (4.70-6.10); Red Cell Dist. Width 12.9 % (11.5-14.5); White Blood Cell Count 6.9 10^3/uL (4.8-10.8)
[2023-11-07 05:05] LABS: Blood Urea Nitrogen 20 mg/dl (9-20); Calcium 8.7 mg/dl (8.4-10.2); Carbon Dioxide 29 mmol/L (22-30); Chloride 101 mmol/L (98-107); Estimated Creatinine Clearance 72 ml/min; Glucose 112 mg/dl (70-99); Potassium 4.7 mmol/L (3.5-5.1); Sodium 135 mmol/L (135-145); Triglycerides 65 mg/dl (10-149); eGFR > 60.00
[2023-11-07 06:22] LABS: Glucose - Point of Care 127 mg/dl (70-99)
[2023-11-07 06:32] LABS: % Basophils 0.6 % (0-2); % Eosinophils 5.1 % (0-6); % Immature Granulocytes 0.3 % (0-0.5); % Lymphocytes 30.1 % (20.5-51.1); % Monocytes 9.9 % (1.7-9.3); Absolute Eosinophils 0.4 10^3/uL (0-0.7); Absolute Lymphocytes 2.1 10^3/uL (1.2-3.4); Absolute Monocytes 0.7 10^3/uL (0.1-0.6); Absolute Neutrophils 3.7 10^3/uL (1.4-6.5); Nucleated Red Blood Cells % 0 % (-)
--- NOTE | 2023-11-07 08:17 | W.PN.HOSP.TC ---
Addendum entered and electronically signed by Júnior Bullard MD 11/07/23 13:33:
updated over the phone today
Original Note:
Today's Communication/Plan
-
IV antibiotics.
Assessment / Plan
Assessment / Plan
Physical exam:
General: Acutely ill
HEENT: Normocephalic, Atraumatic and Moist Mucous Membranes
Respiratory: Clear to auscultation bilateral; Negative Wheezes, or Rales
Cardiac: Regular Rhythm and S1/S2
GI: Soft, Nontender and Nondistended
Musculoskeletal: No Clubbing, No Cyanosis and No Edema
Neuro: Awake, Alert and oriented today, no neurological focality deficits
Psych: Calmer with less agitation, judgment and insight still impaired but improving
A/P:
Toxic metabolic encephalopathy:
More alert today. Able to answer specific questions from family and sometimes derails on answers but overall much improved.
At this point behaving more as a delirium but overall improving.
Brain MRI no acute abnormality
Etiology possible COVID-19 related encephalopathy and now superimposed with several acute insults during this hospital stay.
Continue monitor mental and behavioral status
Continue nonviolent restraints but may be able to take off over the next few days if continues to improve.
Psychiatry stopped standing doses of Ativan. Continue on Seroquel, Mirtazapine and Ativan as needed-low dose.
Speech therapy will reevaluate today
We will ask PT to reevaluate today as well to get him out of bed
Discussed with at bedside prior
Discussed with attending RN today
Sepsis with bacteremia, Serratia Marcescens Bacteremia(CLABSI):
Continue IV ceftriaxone
Central line discontinued
ID reconsult appreciated
Remains afebrile
WBC stable
Prediabetes mellitus:
Insulin sliding scale while in the hospital
Hemoglobin A1c 5.8
Dysphagia:
Tolerating PEG feedings
TPN discontinued
Status post PEG on 10/30.
Speech therapy reeval and plan for possible VSE
Aspiration pneumonia:
Status post treated with course of Unasyn
COVID-19:
Off isolation precautions
Status post treated with 5 days of Paxlovid
Western blot Lyme test came back negative for IgM and positive for IgG.
Hyponatremia:
Mild
Continue to monitor
Acute hypoxic respiratory failure:
Resolved
Urinary retention:
Continue following per urology recommendations due to urethral stricture
Discussed with urology today if able to do a void trial but they want to hold off and they will come and reevaluate tomorrow and will give us more information at the time.
Past medical problems:
Hypertension
Dyslipidemia
Prediabetes mellitus
TIA/brain infarcts
PVD with carotid stenosis status post left CEA
Prostate cancer
DVT prophylaxis:
Lovenox 40 mg SQ daily
CODE STATUS:
Full code
Total time spent on today's encounter was 52 minutes which included time spent in counseling the patient/family regarding diagnosis and treatment plan as listed above, goals of care, and symptom management. Case was discussed with nursing staff,
specialists, and care coordinators/case management. All labs and imaging personally reviewed by me. Remainder the time spent in detailed review of previous records, lab data, imaging, and other medical provider documentation.
Anticipated Discharge: > 48 hours
Subjective/Interval History
-
Date of Service: November 07, 2023
Patient seen and examined.
Objective Data
-
Labs:
Laboratory Results
11/07/23
04:12
WBC 6.9
Hgb 11.8 L
Hct 35.1 L
Plt Count 306
Sodium 135
Potassium 4.7
Chloride 101
Carbon Dioxide 29
BUN 20
Creatinine 0.6 L
Glucose 112 H
Calcium 8.7
Vital Signs:
Vital Signs
Temp Pulse Resp BP Pulse Ox
98.1 F 78 15 128/85 98
11/07/23 03:21 11/06/23 18:00 11/06/23 18:00 11/06/23 18:00 11/06/23 21:28
I&O
11/06/23 11/07/23 11/08/23
06:59 06:59 06:59
Intake Total 960 / 960
Output Total 1610 / 1610 1625 / 1625
Balance -1610 / -1610 -1625 / -1625 960 / 960
[2023-11-07] MEDS: SEROQUEL 12.5 MG TUBE ×2 (09:43→17:18)
[2023-11-07] MEDS: LOW STRENGTH ASPIRIN 81 MG TUBE (09:43)
[2023-11-07] MEDS: MYCOSTATIN ORAL SUSPENSION 5 ML PO ×3 (09:43→20:56)
[2023-11-07] MEDS: PREVACID 30 MG TUBE ×2 (09:43→20:56)
--- NOTE | 2023-11-07 12:42 | PTCARENOTE ---
Patient is out of bed with at bedside sitting in gerichair, restraint free at this time. Patient is awake, alert and oriented to person and place. Participated in physical therapy. Denying pain when asked.
[2023-11-07 13:43] LABS: Glucose - Point of Care 131 mg/dl (70-99)
[2023-11-07] MEDS: STERILE WATER FOR INJECTION IV (14:04)
[2023-11-07] MEDS: ROCEPHIN IV (14:04)
[2023-11-07] MEDS: LOPRESSOR 50 MG TUBE ×2 (14:05→20:56)
[2023-11-07] MEDS: LOPRESSOR IV (14:16)
--- NOTE | 2023-11-07 14:43 | W.PN.UPDATE ---
Update Note
Progress Note Update
Pt seen, sitting up in chair, with present. Reviewed with nursing staff. Pt noted to be sleepy in the am, then more awake/alert around 11 am, then becomes more restless and agitated in the late afternoon. Pt out of restraints this afternoon,
continues to slowly improve. Pt reportedly much better, with less agitation, since started on low-dose Seroquel. Pt currently alert, making eye contact, trying to converse, but still somewhat disoriented and confused in his statements. Pt on
Remeron since 10/29 with limited benefit. Ativan is now prn, receiving about once per day. Pt cooperative with PEG tube.
Imp: Delirium, slowly and steadily improving, agitation less on Seroquel
Rec: Continue current dose of Seroquel for now; will taper Remeron to 7.5 mg HS to decreased sedating agents with limited benefit
will follow
[2023-11-07] MEDS: ROCEPHIN 1000 MG IV (15:04)
[2023-11-07] MEDS: STERILE WATER FOR INJECTION 10 ML IV (15:04)
--- NOTE | 2023-11-07 15:47 | W.PN.ID1 ---
Date of Service
Date of Service: November 07, 2023
Today's Communication
Continue antibiotics per
Assessment / Plan
# Recurrence of fever - resolved
# Serratia bacteremia / set (11/01/23)
# Recurrent aspiration pneumonia
# Dysphagia s/p PEG 10/31/23
# Urinary retention with goodwin
# Persistent encephalopathy
- Ucx neg
- - Repeat bcx neg to date.
- ?possible source from recent PICC for TPN -> discontinued 11/01 (no cath tip cx)
- Aspiration also possible source of GNR bacteremia
- Continue ceftriaxone (d#5 abx)
# s/p Symptomatic COVID infection
- Symptom onset 10/14 evening
- s/p 5-day course of Paxlovid
- S/p 10d isolation
#Additional Past Medical History:
Mild dementia
Hypertension
Dyslipidemia
TIA
Left cerebellar chronic infarcts
Carotid stenosis s/p Left CEA
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
Prostate cancer status post prostatectomy
Heel, wrist and pelvis repair 1967
Chief Complaint
-: Pneumonia and Bacteremia
Subjective / Review of Systems
Review of Systems: No Fever, No Chills and No Cough
Vital Signs / Physical Exam
Vital Signs
Vital Signs
Temp Pulse Resp BP Pulse Ox
97.7 F 87 27 106/57 98
11/07/23 11:10 11/07/23 14:05 11/07/23 14:03 11/07/23 14:05 11/07/23 15:40
Physical Exam
Constitutional: No Acute Distress, Comfortable and Non-toxic
Eyes: Sclera Anicteric
Cardiovascular: S1/S2; Negative S3/S4
Pulmonary: Clear and Non Labored; Negative Wheezes or Rales
Gastrointestinal: Soft, Non Tender, Non Distended and Normal Bowel Sounds
Genito-Urinary: Goodwin and Clear Urine; Negative CVA Tenderness or Hematuria
Extremities: Negative Edema
Neurological: Awake and Alert
Psychological: Confused
Objective Data
Lab Data
Lab Results
11/07/23 04:12
11/07/23 04:12
PT 14.5 Sec (11.4-14.6) 10/27/23 08:56
INR 1.12 10/27/23 08:56
Estimated Creat Clear 72 ml/min 11/07/23 04:12
Total Bilirubin 0.5 mg/dl (0.2-1.3) 11/02/23 05:07
AST 27 U/L (17-59) 11/02/23 05:07
ALT 25 U/L (0-50) 11/02/23 05:07
Alkaline Phosphatase 76 U/L (38-126) 11/02/23 05:07
Most recent labs reviewed.
Micro Results:
11/01/23 20:48 Blood Culture - Final
Blood/Venous No Growth - Final Report
11/01/23 11:22 Blood Culture - Preliminary
Blood/Venous Serratia marcescens
Gram Stain - Preliminary
11/01/23 20:48 Urine Culture - Final
Urine NO GROWTH
10/18/23 10:33 Blood Culture - Final
Blood/Venous No Growth - Final Report
10/18/23 18:21 Urine Culture - Final
Urine NO GROWTH
10/16/23 12:56 Urine Culture - Final
Urine NO GROWTH
10/22/2023 CXR (portable): Moderate opacification of the right infrahilar region and mid right lower lung field concerning for developing pneumonia. A tiny left pleural effusion is noted. No pneumothorax seen.
10/16/23 CXR: No acute cardiopulmonary process.
10/17/23 Vascular US: Right carotid: Extensive atherosclerotic disease with peak systolic velocity within the proximal ICA measuring 616 cm/s. Elevated end-diastolic velocity and ICA/CCA ratio compatible with a greater than 70% stenosis. Left
carotid: Mild calcified plaque/intimal thickening within the bulb proximal ICA causing less than 50% luminal narrowing.
10/18/23 CXR: There are new areas of airspace disease in both lower lobes, left greater than right. Findings suggest pneumonia.
10/19/23 Brain MRI: No acute intracranial abnormality. Prior small infarcts within the left cerebellar hemisphere, similar in appearance prior. Mucosal thickening with layering secretions in the right maxillary sinus.
11/01/23 CXR: Some hazy right basilar opacification which could represent pneumonitis.
--- NOTE | 2023-11-07 17:10 | CM ---
Patient with Dx TME, sepsis with bacteremia, dysphagia, Covid + 10/15 - out of isolation. Room air. Jevity tube feeds via PEG. Seen by Psych delirium improving. Per nursing; out of restraints, A/O. PT & OT 11/06; recommend skilled rehab.
Patient not [facility] yet by [facility] is considering. Referral updated. Message sent requesting decision on acceptance.
Plan follow up with [facility] re; acceptance.
[2023-11-07] MEDS: LOVENOX 40 MG SC (17:18)
[2023-11-07] MEDS: MYCOSTATIN ORAL SUSPENSION PO (17:19)
[2023-11-07 17:36] LABS: Glucose - Point of Care 113 mg/dl (70-99)
--- NOTE | 2023-11-07 17:49 | PTCARENOTE ---
Patient was attempting to climb out of carrington chair. Placed back in bed and patient started to pull on goodwin and climb out of bed. Despite several alternative interventions bilateral soft wrist restraints had to be reapplied. Dr. Bullard notified.
--- NOTE | 2023-11-07 20:25 | PTCARENOTE ---
Received pt from day shift. AAOx1 (to self) in bed with bilateral soft upper limb restraints w/ four side rails, and med sitter. VSS. Resting in bed with bed alarm on.
[2023-11-07] MEDS: REMERON 7.5 MG TUBE (20:57)
[2023-11-07] MEDS: SEROQUEL 25 MG TUBE (20:58)
[2023-11-08] VITALS (10 sets, daily range): BP systolic 104–159; BP diastolic 44–109; BMI 19.0
[2023-11-08 00:23] LABS: Glucose - Point of Care 123 mg/dl (70-99)
[2023-11-08] MEDS: NOVOLOG FLEXPEN-LOW RESISTANCE SC ×4 (00:29→17:19)
[2023-11-08 05:20] LABS: Glucose - Point of Care 121 mg/dl (70-99)
[2023-11-08 05:43] LABS: % Basophils 0.5 % (0-2); % Eosinophils 4.4 % (0-6); % Immature Granulocytes 0.4 % (0-0.5); % Lymphocytes 26.6 % (20.5-51.1); % Monocytes 9.3 % (1.7-9.3); % Neutrophils 58.8 % (42.2-75.2); Absolute Eosinophils 0.3 10^3/uL (0-0.7); Absolute Monocytes 0.7 10^3/uL (0.1-0.6); Absolute Neutrophils 4.4 10^3/uL (1.4-6.5); Hematocrit 33.2 % (39.0-52.0); Hemoglobin 11.4 g/dL (13.0-18.0); Mean Corp Hgb Conc. 34.3 g/dL (33.0-37.0); Mean Corpuscular Hgb 32.7 pg (27.0-31.0); Mean Corpuscular Volume 95.1 fL (80.0-94.0); Mean Platelet Volume 10.5 fL (7.4-10.4); Nucleated Red Blood Cells % 0 % (-); Platelet Count 348 10^3/uL (130-400); Red Blood Cell Count 3.49 10^6/uL (4.70-6.10); Red Cell Dist. Width 12.9 % (11.5-14.5); White Blood Cell Count 7.5 10^3/uL (4.8-10.8)
[2023-11-08 06:09] LABS: Blood Urea Nitrogen 23 mg/dl (9-20); Carbon Dioxide 26 mmol/L (22-30); Chloride 100 mmol/L (98-107); Estimated Creatinine Clearance 72 ml/min; Glucose 113 mg/dl (70-99); Potassium 4.7 mmol/L (3.5-5.1); Sodium 133 mmol/L (135-145); eGFR > 60.00
[2023-11-08] MEDS: LOPRESSOR 50 MG TUBE ×2 (08:32→21:41)
[2023-11-08] MEDS: LOW STRENGTH ASPIRIN 81 MG TUBE (08:33)
[2023-11-08] MEDS: PREVACID 30 MG TUBE ×2 (08:33→21:41)
[2023-11-08] MEDS: MYCOSTATIN ORAL SUSPENSION 5 ML PO ×3 (08:33→21:41)
[2023-11-08] MEDS: SEROQUEL 12.5 MG TUBE ×2 (08:33→16:19)
--- NOTE | 2023-11-08 09:40 | PTOTSP ---
Speech Language Pathology
VIDEOFLUOROSCOPIC SWALLOWING EXAMINATION (VSE) completed. Overall, pt with severe pharyngeal dysphagia with aspiration of all textures and significant pharyngeal residue. Suspect etiology of dysphagia is significant deconditioning. Short-term
prognosis for improvement is poor. Long-term prognosis is fair to guarded.
Recommend:
(1) NPO
(2) Oral care 4x/day with suctioning as needed
(3) Allow ice chips sparingly post oral care given supervision per Aspiration Risk Hydration Protocol (ARHP)
(4) Meds via PEG
(5) SENIOR FIELD ENGINEER to continue to follow for dysphagia tx
--- NOTE | 2023-11-08 10:18 | W.PN.SURGUPD ---
Surgical Update
Surgical Update
Ford catheter remains in place
Draining clear urine
---
Advise keeping Ford catheter until patient has regained better conditioning, as per Dr. Mtz's instructions
Would recommend a voiding trial in SNF, if that is the discharge plan, of 24 to 48 hours prior to discharge home
[2023-11-08] MEDS: ROCEPHIN 1000 MG IV (12:01)
[2023-11-08] MEDS: STERILE WATER FOR INJECTION 10 ML IV (12:01)
[2023-11-08] MEDS: MYCOSTATIN ORAL SUSPENSION PO (12:46)
[2023-11-08 12:47] LABS: Glucose - Point of Care 135 mg/dl (70-99)
--- NOTE | 2023-11-08 13:56 | W.PN.ID1 ---
Date of Service
Date of Service: November 08, 2023
Today's Communication
Continue antibiotics. See below�
Assessment / Plan
# Fever - resolved
# Serratia bacteremia (03/21 set; 11/01/23)
# Recurrent aspiration pneumonia
# Dysphagia s/p PEG 10/31/23
# Urinary retention requiring goodwin
# Persistent encephalopathy
- Ucx neg
- Repeat bcx neg to date.
?possible source from recent PICC for TPN (discontinued 11/01) vs. possible aspiration
- Continue ceftriaxone (d#6 abx). Can transition to cefdinir at D/C; to complete tx through 11/12/23
# s/p Symptomatic COVID infection
- Symptom onset 10/14 evening
- s/p 5-day course of Paxlovid
- S/p 10d isolation
#Additional Past Medical History:
Mild dementia
Hypertension
Dyslipidemia
TIA
Left cerebellar chronic infarcts
Carotid stenosis s/p Left CEA
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
Prostate cancer status post prostatectomy
Heel, wrist and pelvis repair 1967
Chief Complaint
-: Pneumonia and Bacteremia
Subjective / Review of Systems
Patient seen and examined. No significant changes
Vital Signs / Physical Exam
Vital Signs
Vital Signs
Temp Pulse Resp BP Pulse Ox
97.8 F 80 18 138/59 99
11/08/23 11:50 11/08/23 08:32 11/08/23 10:00 11/08/23 08:32 11/08/23 12:47
Physical Exam
Constitutional: No Acute Distress, Comfortable and Non-toxic
Head: Normocephalic
Eyes: Sclera Anicteric
Cardiovascular: S1/S2; Negative S3/S4
Pulmonary: Clear and Non Labored; Negative Wheezes or Rales
Gastrointestinal: Soft, Non Tender, Non Distended and Normal Bowel Sounds
Genito-Urinary: Goodwin and Clear Urine; Negative CVA Tenderness or Hematuria
Extremities: Negative Edema
Skin: Negative Jaundice
Neurological: Awake and Alert
Psychological: Confused
Objective Data
Lab Data
Lab Results
11/08/23 05:18
11/08/23 05:18
PT 14.5 Sec (11.4-14.6) 10/27/23 08:56
INR 1.12 10/27/23 08:56
Estimated Creat Clear 72 ml/min 11/08/23 05:18
Total Bilirubin 0.5 mg/dl (0.2-1.3) 11/02/23 05:07
AST 27 U/L (17-59) 11/02/23 05:07
ALT 25 U/L (0-50) 11/02/23 05:07
Alkaline Phosphatase 76 U/L (38-126) 11/02/23 05:07
Most recent labs reviewed.
Micro Results:
11/01/23 11:22 Blood Culture - Final
Blood/Venous Serratia marcescens
Gram Stain - Final
11/01/23 20:48 Blood Culture - Final
Blood/Venous No Growth - Final Report
11/01/23 20:48 Urine Culture - Final
Urine NO GROWTH
10/18/23 10:33 Blood Culture - Final
Blood/Venous No Growth - Final Report
10/18/23 18:21 Urine Culture - Final
Urine NO GROWTH
10/16/23 12:56 Urine Culture - Final
Urine NO GROWTH
Imaging:
10/22/2023 CXR (portable): Moderate opacification of the right infrahilar region and mid right lower lung field concerning for developing pneumonia. A tiny left pleural effusion is noted. No pneumothorax seen.
10/16/23 CXR: No acute cardiopulmonary process.
10/17/23 Vascular US: Right carotid: Extensive atherosclerotic disease with peak systolic velocity within the proximal ICA measuring 616 cm/s. Elevated end-diastolic velocity and ICA/CCA ratio compatible with a greater than 70% stenosis. Left
carotid: Mild calcified plaque/intimal thickening within the bulb proximal ICA causing less than 50% luminal narrowing.
10/18/23 CXR: There are new areas of airspace disease in both lower lobes, left greater than right. Findings suggest pneumonia.
10/19/23 Brain MRI: No acute intracranial abnormality. Prior small infarcts within the left cerebellar hemisphere, similar in appearance prior. Mucosal thickening with layering secretions in the right maxillary sinus.
11/01/23 CXR: Some hazy right basilar opacification which could represent pneumonitis.
[2023-11-08] MEDS: ATIVAN 0.25 MG TUBE ×2 (14:33→23:27)
--- NOTE | 2023-11-08 14:59 | PTCARENOTE ---
Patient has been restraint free since 10am sitting in [facility]. Multiple alternatives to restraints utilized. Patient was placed at nurses station and was giving playing cards and music was played for him, patient was also stood up and repositioned
when he got restless, visited, and patient frequently reoriented. Ativan 0.25 given this afternoon when patient became objectively anxious. Patient continues to pull off stat lock so goodwin leg strap utilized with success.
--- NOTE | 2023-11-08 15:41 | W.PN.HOSP.TC ---
Today's Communication/Plan
-
IV antibiotics. Antipsychotics.
Assessment / Plan
Assessment / Plan
Physical exam:
General: Acutely and appears chronically ill but no acute distress
HEENT: Normocephalic, Atraumatic and Moist Mucous Membranes
Respiratory: Clear to auscultation bilateral; Negative Wheezes, or Rales
Cardiac: Regular Rhythm and S1/S2
GI: Soft, Nontender and Nondistended
Musculoskeletal: No Clubbing, No Cyanosis and No Edema
Neuro: Awake, Alert and oriented today, sitting in the chair, no neurological focality deficits
Psych: Calm, follow simple commands, judgment and insight still impaired but improving
A/P:
Toxic metabolic encephalopathy:
Improving
Brain MRI no acute abnormality
Etiology possible COVID-19 related encephalopathy and delirium with multiple offending factors during this hospital stay.
Restraints off today 11/07 so if we can keep this for 24 hours or more, then we can start planning discharge and transfer out of IMU (human services case manager working on acceptance to SNF when ready)
Psychiatry stopped standing doses of Ativan prior. Continue on Seroquel and Mirtazapine and low-dose as needed Ativan.
Speech therapy reevaluated with VSE but failed. Continue tube feedings
I asked PT to reevaluate and he has been more mobile.
Discussed with prior
Discussed with attending RN today
Sepsis with bacteremia, Serratia Marcescens Bacteremia-CLABSI/PICC line related versus recurrent aspiration pneumonia:
Improving
Continue IV ceftriaxone and plan to switch to oral antibiotics over the next 24 hours through 11/11.
Central line discontinued
ID reconsult appreciated
Remains afebrile
WBC stable
Prediabetes mellitus:
Insulin sliding scale while in the hospital
Hemoglobin A1c 5.8
Dysphagia:
Tolerating PEG feedings
TPN discontinued
Status post PEG on 10/30.
Speech therapy reeval and failed VSE. Continue TF
Aspiration pneumonia:
Status post treated with course of Unasyn
COVID-19:
Off isolation precautions
Status post treated with 5 days of Paxlovid
Western blot Lyme test came back negative for IgM and positive for IgG.
Hyponatremia:
Mild
Continue to monitor
Acute hypoxic respiratory failure:
Resolved
Urinary retention:
Continue following per urology recommendations due to urethral stricture
Discussed with urology and urology evaluated him today and recommend to continue Ford catheter and plan to do void trial as outpatient in the rehab facility.
Past medical problems:
Hypertension
Dyslipidemia
Prediabetes mellitus
TIA/brain infarcts
PVD with carotid stenosis status post left CEA
Prostate cancer
DVT prophylaxis:
Lovenox 40 mg SQ daily
CODE STATUS:
Full code
Total time spent on today's encounter was 52 minutes which included time spent in counseling the patient/family regarding diagnosis and treatment plan as listed above, goals of care, and symptom management. Case was discussed with nursing staff,
specialists, and care coordinators/case management. All labs and imaging personally reviewed by me. Remainder the time spent in detailed review of previous records, lab data, imaging, and other medical provider documentation.
Anticipated Discharge: 24 - 48 hours
Subjective/Interval History
-
Date of Service: November 08, 2023
Patient seen earlier. He is alert and he has been able to sit down in a geriatric chair very calm and more oriented than before. Afebrile
Objective Data
-
Labs:
Laboratory Results
11/08/23
05:18
WBC 7.5
Hgb 11.4 L
Hct 33.2 L
Plt Count 348
Sodium 133 L
Potassium 4.7
Chloride 100
Carbon Dioxide 26
BUN 23 H
Creatinine 0.6 L
Glucose 113 H
Calcium 9.0
Vital Signs:
Vital Signs
Temp Pulse Resp BP Pulse Ox
97.8 F 76 26 117/60 99
11/08/23 11:50 11/08/23 14:00 11/08/23 14:00 11/08/23 14:00 11/08/23 12:47
I&O
11/07/23 11/08/23 11/09/23
06:59 06:59 06:59
Intake Total 1920 / 1920 960 / 960
Output Total 1625 / 1625 1275 / 1275
Balance -1625 / -1625 645 / 645 960 / 960
[2023-11-08] MEDS: LOVENOX 40 MG SC (16:19)
[2023-11-08 17:17] LABS: Glucose - Point of Care 138 mg/dl (70-99)
--- NOTE | 2023-11-08 18:56 | PTCARENOTE ---
Patient has been restraint free since 10am. Patient is now uncoooperative, anxious, and aggressive towards staff , he is pulling on goodwin catheter. Patient was placed at nurses station for 1:1 montoring without success. Patient was given a dose of
Ativan this afternoon. Discussing with Dr. Bullard at this time.
--- NOTE | 2023-11-08 19:18 | PTCARENOTE ---
Bilateral wrist restraints had to be applied due to attempts to pull out tubes/ lines and climbing out of bed.
[2023-11-08] MEDS: SEROQUEL 25 MG TUBE (21:41)
[2023-11-08] MEDS: REMERON 7.5 MG TUBE (21:41)
[2023-11-09] VITALS (15 sets, daily range): BP systolic 90–141; BP diastolic 42–74; PULSE 67–72; BMI 18.9
[2023-11-09 00:28] LABS: Glucose - Point of Care 114 mg/dl (70-99)
[2023-11-09] MEDS: NOVOLOG FLEXPEN-LOW RESISTANCE SC ×4 (00:39→17:35)
--- NOTE | 2023-11-09 03:08 | DOWNTIME ---
There was a [employer] Client [employer] Engineer Downtime on 11/09/2023 from 0100 to 11/09/2023 at 0252. Downtime documentation of patient's care, including medication administrations, has been reconciled in the electronic record per guidelines. Refer to the
patient's paper chart under the miscellaneous tab to see printed paper medication records and downtime forms.
[2023-11-09 05:47] LABS: Hematocrit 34.5 % (39.0-52.0); Hemoglobin 11.7 g/dL (13.0-18.0); Mean Corp Hgb Conc. 33.9 g/dL (33.0-37.0); Mean Corpuscular Hgb 33.8 pg (27.0-31.0); Mean Corpuscular Volume 99.7 fL (80.0-94.0); Mean Platelet Volume 10.6 fL (7.4-10.4); Platelet Count 310 10^3/uL (130-400); Red Blood Cell Count 3.46 10^6/uL (4.70-6.10); Red Cell Dist. Width 12.9 % (11.5-14.5); White Blood Cell Count 7.4 10^3/uL (4.8-10.8)
[2023-11-09 05:52] LABS: Blood Urea Nitrogen 24 mg/dl (9-20); Calcium 8.9 mg/dl (8.4-10.2); Carbon Dioxide 29 mmol/L (22-30); Chloride 100 mmol/L (98-107); Estimated Creatinine Clearance 62 ml/min; Glucose 127 mg/dl (70-99); Potassium 5.5 mmol/L (3.5-5.1); Sodium 133 mmol/L (135-145); eGFR > 60.00
--- NOTE | 2023-11-09 06:12 | PTCARENOTE ---
Patient continues to be confused; conversation not making sense; talking about the mail and the dog. Re-oriented as needed. Bilateral wrist restraints in place overnight; q2 hour checks in place. pt attempting to pull goodwin, peg tube and tele
monitor wires. Tolerating TF. no BM. Small to moderate amount of bloody drainage from goodwin catheter insertion site, sharda wipes provided multiple times. dry non-prod cough, aspiration precautions in place. tele showing NSR. Pt attempts to move self
to end of bed.. Pt is turning self in bed, restless most of the night. PRN ativan provided for agitation and restlessness. Med sitter in place to assist with monitoring the patient. RN sitting outside closest nursing station.
[2023-11-09 06:18] LABS: % Basophils 0.7 % (0-2); % Eosinophils 5.9 % (0-6); % Immature Granulocytes 0.4 % (0-0.5); % Lymphocytes 27.3 % (20.5-51.1); % Monocytes 10.4 % (1.7-9.3); % Neutrophils 55.3 % (42.2-75.2); Absolute Basophils 0.1 10^3/uL (0-0.2); Absolute Eosinophils 0.4 10^3/uL (0-0.7); Absolute Monocytes 0.8 10^3/uL (0.1-0.6); Absolute Neutrophils 4.1 10^3/uL (1.4-6.5); Nucleated Red Blood Cells % 0 % (-)
[2023-11-09] MEDS: LOPRESSOR 50 MG TUBE ×2 (08:21→20:12)
[2023-11-09] MEDS: PREVACID 30 MG TUBE ×2 (08:23→20:12)
[2023-11-09] MEDS: SEROQUEL 12.5 MG TUBE ×2 (08:23→16:15)
[2023-11-09] MEDS: LOW STRENGTH ASPIRIN 81 MG TUBE (08:24)
[2023-11-09] MEDS: MYCOSTATIN ORAL SUSPENSION 5 ML PO ×4 (08:24→20:12)
--- NOTE | 2023-11-09 09:25 | W.PN.HOSP.TC ---
Addendum entered and electronically signed by Henrik Cardenas DO 11/09/23 12:44:
extensively updated on the phone. All questions answered.
Original Note:
Today's Communication/Plan
-
Continue current efforts
Assessment / Plan
Assessment / Plan
General: Acutely and appears chronically ill but no acute distress, confused, not oriented
HEENT: Normocephalic, Atraumatic and Moist Mucous Membranes
Respiratory: Clear to auscultation bilateral; Negative Wheezes, or Rales
Cardiac: Regular Rhythm and S1/S2
GI: Soft, Nontender and Nondistended
Musculoskeletal: No Clubbing, No Cyanosis and No Edema
Neuro: Awake, Alert and oriented today, sitting in the chair, no neurological focality deficits
Psych: Calm, follow simple commands, judgment and insight still impaired but improving
Acute toxic metabolic encephalopathy:
Improving
Brain MRI no acute abnormality
Etiology possible COVID-19 related encephalopathy and delirium with multiple offending factors during this hospital stay.
Unfortunately still has restraints in place.
Psychiatry stopped standing doses of Ativan prior. Continue on Seroquel and Mirtazapine and low-dose as needed Ativan.
Speech therapy reevaluated with VSE but failed. Continue tube feedings
I asked PT to reevaluate and he has been more mobile.
Sepsis with bacteremia, Serratia Marcescens Bacteremia-CLABSI/PICC line related versus recurrent aspiration pneumonia:
Improving
Continue IV ceftriaxone and plan to switch to oral antibiotics over the next 24 hours through 11/11.
Central line discontinued
ID reconsult appreciated
Remains afebrile
WBC stable
Prediabetes mellitus:
Insulin sliding scale while in the hospital
Hemoglobin A1c 5.8
Dysphagia:
Tolerating PEG feedings
TPN discontinued
Status post PEG on 10/30.
Speech therapy reeval and failed VSE. Continue TF
Aspiration pneumonia:
Status post treated with course of Unasyn
COVID-19:
Off isolation precautions
Status post treated with 5 days of Paxlovid
Western blot Lyme test came back negative for IgM and positive for IgG.
Hyponatremia:
Mild
Continue to monitor
Hyperkalemia -5.5 today. Give a dose of Lokelma.
Acute hypoxic respiratory failure:
Resolved
Urinary retention:
Continue following per urology recommendations due to urethral stricture
Discussed with urology and urology evaluated him today and recommend to continue Ford catheter and plan to do void trial as outpatient in the rehab facility.
Past medical problems:
Essential hypertension
Dyslipidemia
Prediabetes mellitus
TIA/brain infarcts
PVD with carotid stenosis status post left CEA
Prostate cancer
DVT prophylaxis:
Lovenox 40 mg SQ daily
Full code
Dispo -anticipate discharge to SNF if he remains stable.
Anticipated Discharge: 24 - 48 hours
Subjective/Interval History
-
Date of Service: November 09, 2023
Patient seen and examined. No complaints. Appears confused.
Objective Data
-
Labs:
Laboratory Results
11/09/23
05:08
WBC 7.4
Hgb 11.7 L
Hct 34.5 L
Plt Count 310
Sodium 133 L
Potassium 5.5 H
Chloride 100
Carbon Dioxide 29
BUN 24 H
Creatinine 0.7
Glucose 127 H
Calcium 8.9
Vital Signs:
Vital Signs
Temp Pulse Resp BP Pulse Ox
97.2 F 62 24 120/42 99
11/09/23 04:06 11/09/23 08:21 11/09/23 06:00 11/09/23 08:21 11/08/23 22:42
I&O
11/08/23 11/09/23 11/10/23
06:59 06:59 06:59
Intake Total 1920 / 1920 960 / 960
Output Total 1275 / 1275 1100 / 1100
Balance 645 / 645 -140 / -140
Review of Systems
-
Unable to obtain full review of systems at this time due to: Acuity
--- NOTE | 2023-11-09 09:51 | W.PN.ID1 ---
Date of Service
Date of Service: November 09, 2023
Today's Communication
Continue antibiotics
Assessment / Plan
# Fever - resolved
# Serratia bacteremia (03/21 set; 11/01/23)
# Recurrent aspiration pneumonia
# Dysphagia; s/p PEG 10/31/23
# Urinary retention requiring goodwin
# Persistent encephalopathy
- Ucx neg
- Repeat bcx neg to date.
?possible source from recent PICC for TPN (discontinued 11/01) vs. possible aspiration
- Continue ceftriaxone (d#7 abx). Can transition to cefdinir at D/C; to complete tx through 11/12/23
# s/p Symptomatic COVID infection
- Symptom onset 10/14 evening
- s/p 5-day course of Paxlovid
- S/p 10d isolation
#Additional Past Medical History:
Mild dementia
Hypertension
Dyslipidemia
TIA
Left cerebellar chronic infarcts
Carotid stenosis s/p Left CEA
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
Prostate cancer status post prostatectomy
Heel, wrist and pelvis repair 1967
����������������������������������������������������������
Chief Complaint
-: Pneumonia and Bacteremia
Subjective / Review of Systems
Review of Systems: No Fever
Vital Signs / Physical Exam
Vital Signs
Vital Signs
Temp Pulse Resp BP Pulse Ox
97.9 F 62 24 120/42 99
11/09/23 07:55 11/09/23 08:21 11/09/23 06:00 11/09/23 08:21 11/08/23 22:42
Physical Exam
Constitutional: No Acute Distress, Comfortable, Chronically Ill and Non-toxic
Head: Normocephalic
Cardiovascular: S1/S2; Negative S3/S4
Pulmonary: Clear and Non Labored; Negative Wheezes or Rales
Gastrointestinal: Soft, Non Tender, Non Distended and Normal Bowel Sounds
Genito-Urinary: Goodwin and Clear Urine; Negative Hematuria
Extremities: Negative Edema
Skin: Negative Jaundice
Neurological: Other (Resting calmly.)
Psychological: Confused
Objective Data
Lab Data
Lab Results
11/09/23 05:08
11/09/23 05:08
PT 14.5 Sec (11.4-14.6) 10/27/23 08:56
INR 1.12 10/27/23 08:56
Estimated Creat Clear 62 ml/min 11/09/23 05:08
Total Bilirubin 0.5 mg/dl (0.2-1.3) 11/02/23 05:07
AST 27 U/L (17-59) 11/02/23 05:07
ALT 25 U/L (0-50) 11/02/23 05:07
Alkaline Phosphatase 76 U/L (38-126) 11/02/23 05:07
Most recent labs reviewed.
Micro Results:
11/01/23 11:22 Blood Culture - Final
Blood/Venous Serratia marcescens
Gram Stain - Final
11/01/23 20:48 Blood Culture - Final
Blood/Venous No Growth - Final Report
11/01/23 20:48 Urine Culture - Final
Urine NO GROWTH
10/18/23 10:33 Blood Culture - Final
Blood/Venous No Growth - Final Report
10/18/23 18:21 Urine Culture - Final
Urine NO GROWTH
10/16/23 12:56 Urine Culture - Final
Urine NO GROWTH
Imaging:
10/22/2023 CXR (portable): Moderate opacification of the right infrahilar region and mid right lower lung field concerning for developing pneumonia. A tiny left pleural effusion is noted. No pneumothorax seen.
10/16/23 CXR: No acute cardiopulmonary process.
10/17/23 Vascular US: Right carotid: Extensive atherosclerotic disease with peak systolic velocity within the proximal ICA measuring 616 cm/s. Elevated end-diastolic velocity and ICA/CCA ratio compatible with a greater than 70% stenosis. Left
carotid: Mild calcified plaque/intimal thickening within the bulb proximal ICA causing less than 50% luminal narrowing.
10/18/23 CXR: There are new areas of airspace disease in both lower lobes, left greater than right. Findings suggest pneumonia.
10/19/23 Brain MRI: No acute intracranial abnormality. Prior small infarcts within the left cerebellar hemisphere, similar in appearance prior. Mucosal thickening with layering secretions in the right maxillary sinus.
11/01/23 CXR: Some hazy right basilar opacification which could represent pneumonitis.
[2023-11-09] MEDS: ROCEPHIN 1000 MG IV (11:53)
[2023-11-09] MEDS: LOKELMA 10 GRAM TUBE (11:53)
[2023-11-09] MEDS: STERILE WATER FOR INJECTION 10 ML IV (11:53)
[2023-11-09 11:59] LABS: Glucose - Point of Care 102 mg/dl (70-99)
--- NOTE | 2023-11-09 12:24 | W.PN.UPDATE ---
Update Note
Progress Note Update
patient seen chart reviewed. patient is well known to me. spoke with nursing. the patient was sleeping. i was able to awaken him for a few moments. i asked him how he felt. his response 'very good'. i asked him if his were coming to visit
'not today'. i told him i had enjoyed speaking to his and a friend who had visited him last week and he said 'you must be talking about someone else and went back to sleep'. nursing reports he does continue to have some periods of agitation.
there has in the time i have been seeing (psych has seen him since 10/16) been no period of consistent improvement despite several trials of antipsychotics. dr castro in his signout feels that seroquel has been helpful. this is not really clear to
me at this point but will continue to monitor.
--- NOTE | 2023-11-09 12:45 | PTOTSP ---
Speech Language Pathology
Pt seen for dysphagia tx. present in room. Education provided on results/recommendations from VSE. Handout on swallowing exercises provided. Explained, demonstrated, and practiced effortful swallow exercise. Completed exercise with ice
chips at times and dry swallows at others. Cognitive status was a barrier to completion with pt completing many without effort despite consistent verbal cueing and model. Able to generate 10 effortful swallows with consistent cueing.
Recommend:
(1) NPO
(2) Oral care 4x/day with suctioning as needed
(3) Meds via PEG
(4) Allow ice chips given supervision post Aspiration Risk Hydration Protocol (ARHP). may provide ice chips to pt without nursing supervision to in completing swallowing exercises during the day
(5) BENEFIT SPECIALIST to continue to follow
--- NOTE | 2023-11-09 13:56 | CM ---
Patient with Dx TME, sepsis with bacteremia, dysphagia, Covid + 10/15 - out of isolation. Room air. Receiving IV Abx, Seroquel, IV Ativan prn. Jevity tube feeds via PEG. Seen by Psych. Per nursing; confused, Bilateral wrist restraints in place
overnight, pt attempting to pull goodwin, peg tube and tele monitor wires. Medsitter in place.
Spoke with Daphne, [facility]; provided clinical update. They have decided that they cannot accept this patient- they are declining him due to risk of him pulling out feeding tube as they cannot restrain him, and they feel he will only be
able to do a very short period of rehab due to his confusion and will really need LTC, which they cannot provide. They have a waiting list for LTC beds.
Met with patient, patient's Terese, and their 2 friends also visiting patient; patient confused and initially interrupting the conversation with nonsensical statements such as wanting to order Pizza, and said 'how am I feeling today about my
swallowing?' Informed Terese that [facility] declined [facility]. Discussed barriers to SNF planning of ongoing intermittent restlessness/agitation, intermittent need for restraints, and need for Medsitter. does not want to discuss other
SNF options at this time. She is asking to speak with Dr Escobar again about medications that may help her remain calm ---> message sent to Dr Escobar.
Plan follow patient's mentation/behavior.
Plan follow up with for additional SNF choices.
[2023-11-09 14:23] LABS: Glucose - Point of Care 132 mg/dl (70-99)
--- NOTE | 2023-11-09 16:26 | W.PN.UPDATE ---
Update Note
Progress Note Update
returned to see patient at 's request. mr kay was awake and alert and greeted me by name. he was the best i have seen him since october 16 . he is still a bit confused could not give me the year or that he was at but overall a great
improvement given this am. did not make any changes in meds. hopefully this is a beginning of consistent improvement.
--- NOTE | 2023-11-09 16:27 | PTCARENOTE ---
Patient was able to walk to doorway and then to chair with PT. Pt then sat in chair for approx 2 hours until was ready to leave. Pt also had rodriguez trimmed while in chair. Pt did have a few lucid moments while up in chair, however, approx 1620,
patient started to be become confused again. Pt currently sleeping in bed. Assessment, care and VS as charted.
[2023-11-09] MEDS: LOVENOX 40 MG SC (17:21)
[2023-11-09 17:32] LABS: Glucose - Point of Care 131 mg/dl (70-99)
[2023-11-09] MEDS: REMERON 7.5 MG TUBE (20:12)
[2023-11-09] MEDS: SEROQUEL 25 MG TUBE (20:12)
[2023-11-10] VITALS (11 sets, daily range): BP systolic 112–157; BP diastolic 47–91; BMI 18.9
[2023-11-10] MEDS: NOVOLOG FLEXPEN-LOW RESISTANCE SC ×5 (00:06→23:25)
[2023-11-10 00:10] LABS: Glucose - Point of Care 130 mg/dl (70-99)
[2023-11-10 05:23] LABS: Blood Urea Nitrogen 24 mg/dl (9-20); Calcium 8.8 mg/dl (8.4-10.2); Carbon Dioxide 32 mmol/L (22-30); Chloride 100 mmol/L (98-107); Estimated Creatinine Clearance 62 ml/min; Glucose 113 mg/dl (70-99); Potassium 4.7 mmol/L (3.5-5.1); Sodium 135 mmol/L (135-145); eGFR > 60.00
--- NOTE | 2023-11-10 06:30 | PTCARENOTE ---
Pt able to sleep; country music played for comfort. Turns self in bed. Pt remains confused but has been cooperative. Pt still attempts to pull at peg tube and goodwin but is able to be re-oriented. Pt even had a moment overnight when he realized he
was confused and became frustrated that he couldn't say where he was. Tolerating TF. NO restraints overnight. Med sitter at bedside. bed alarm set for safety. RN sitting out side closest nursing station.
[2023-11-10] MEDS: SEROQUEL 12.5 MG TUBE (08:16)
[2023-11-10] MEDS: LOPRESSOR 50 MG TUBE ×2 (08:16→20:46)
[2023-11-10] MEDS: LOW STRENGTH ASPIRIN 81 MG TUBE (08:16)
[2023-11-10] MEDS: PREVACID 30 MG TUBE ×2 (08:16→20:46)
[2023-11-10] MEDS: MYCOSTATIN ORAL SUSPENSION PO (08:17)
--- NOTE | 2023-11-10 08:44 | W.PN.HOSP.TC ---
Today's Communication/Plan
-
discharge planning
Assessment / Plan
Assessment / Plan
General: Acutely and appears chronically ill but no acute distress, confused, oriented to hospital, month, not year.
HEENT: Normocephalic, Atraumatic and Moist Mucous Membranes
Respiratory: Clear to auscultation bilateral; Negative Wheezes, or Rales
Cardiac: Regular Rhythm and S1/S2
GI: Soft, Nontender and Nondistended
Musculoskeletal: No Clubbing, No Cyanosis and No Edema
Neuro: Awake, Alert and oriented today, sitting in the chair, no neurological focality deficits
Psych: Calm, follow simple commands, judgment and insight still impaired but improving
Acute toxic metabolic encephalopathy:
Improving
Brain MRI no acute abnormality
Etiology possible COVID-19 related encephalopathy and delirium with multiple offending factors during this hospital stay.
Has been off restraints since 12:00 noon 11/08. Discussed with nursing.
Psychiatry stopped standing doses of Ativan prior. Continue on Seroquel and Mirtazapine and low-dose as needed Ativan.
Speech therapy reevaluated with VSE but failed. Continue tube feedings
Sepsis with bacteremia, Serratia Marcescens Bacteremia-CLABSI/PICC line related versus recurrent aspiration pneumonia:
Improving
Continue IV ceftriaxone and plan to switch to oral antibiotics over the next 24 hours through 11/11.
Central line discontinued
ID reconsult appreciated
Remains afebrile
WBC stable
Prediabetes mellitus:
Insulin sliding scale while in the hospital
Hemoglobin A1c 5.8
Dysphagia:
Tolerating PEG feedings
TPN discontinued
Status post PEG on 10/30.
Speech therapy reeval and failed VSE. Continue TF
Aspiration pneumonia:
Status post treated with course of Unasyn
COVID-19:
Off isolation precautions
Status post treated with 5 days of Paxlovid
Western blot Lyme test came back negative for IgM and positive for IgG.
Hyponatremia -resolved.
Hyperkalemia - resolved.
Acute hypoxic respiratory failure:
Resolved
Urinary retention:
Continue following per urology recommendations due to urethral stricture
Discussed with urology and urology evaluated him today and recommend to continue Ford catheter and plan to do void trial as outpatient in the rehab facility.
Past medical problems:
Essential hypertension
Dyslipidemia
Prediabetes mellitus
TIA/brain infarcts
PVD with carotid stenosis status post left CEA
Prostate cancer
DVT prophylaxis:
Lovenox 40 mg SQ daily
Full code
Dispo -anticipate discharge to SNF if he remains stable. updated on the phone.
Anticipated Discharge: Within 24 hours
Subjective/Interval History
-
Date of Service: November 10, 2023
Patient seen and examined. Awake, alert, not completely oriented. No complaints.
Objective Data
-
Labs:
Laboratory Results
11/10/23
04:32
Sodium 135
Potassium 4.7
Chloride 100
Carbon Dioxide 32 H
BUN 24 H
Creatinine 0.7
Glucose 113 H
Calcium 8.8
Vital Signs:
Vital Signs
Temp Pulse Resp BP Pulse Ox
97.6 F 61 13 132/61 98
11/10/23 04:10 11/10/23 08:16 11/10/23 06:00 11/10/23 08:16 11/10/23 04:10
I&O
11/09/23 11/10/23 11/11/23
06:59 06:59 06:59
Intake Total 1920 / 1920 1015 / 1015 30 / 30
Output Total 1100 / 1100 950 / 950 200 / 200
Balance 820 / 820 65 / 65 -170 / -170
Review of Systems
-
Unable to obtain full review of systems at this time due to: Acuity
History Source: Patient
All other systems: Reviewed and negative
[2023-11-10] MEDS: ROCEPHIN 1000 MG IV (11:19)
[2023-11-10] MEDS: STERILE WATER FOR INJECTION 10 ML IV (11:19)
[2023-11-10] MEDS: MYCOSTATIN ORAL SUSPENSION 5 ML PO ×3 (11:19→20:46)
--- NOTE | 2023-11-10 11:35 | W.PN.ID1 ---
Date of Service
Date of Service: November 10, 2023
Today's Communication
Continue antibiotics.
Assessment / Plan
# Fever - resolved
# Serratia bacteremia (03/21 set; 11/01/23)
# Recurrent aspiration pneumonia
# Dysphagia; s/p PEG 10/31/23
# Urinary retention requiring goodwin
# Persistent encephalopathy
- Ucx neg
- Repeat bcx neg to date.
?possible source from recent PICC for TPN (discontinued 11/01) vs. possible aspiration
- Continue ceftriaxone. Can transition to cefdinir at D/C; to complete tx through 11/12/23
# s/p Symptomatic COVID infection
- Symptom onset 10/14 evening
- s/p 5-day course of Paxlovid
- S/p 10d isolation
#Additional Past Medical History:
Mild dementia
Hypertension
Dyslipidemia
TIA
Left cerebellar chronic infarcts
Carotid stenosis s/p Left CEA
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
Prostate cancer status post prostatectomy
Heel, wrist and pelvis repair 1967
����������������������������������������������������������
Chief Complaint
-: Pneumonia and Bacteremia
Subjective / Review of Systems
Review of Systems: No Fever and No Chills
Vital Signs / Physical Exam
Vital Signs
Vital Signs
Temp Pulse Resp BP Pulse Ox
97.8 F 53 12 114/52 98
11/10/23 07:50 11/10/23 10:00 11/10/23 10:00 11/10/23 10:00 11/10/23 10:42
Physical Exam
Constitutional: No Acute Distress, Comfortable, Chronically Ill and Non-toxic
Head: Normocephalic
Cardiovascular: S1/S2; Negative S3/S4
Pulmonary: Clear and Non Labored; Negative Wheezes, Rales or Rhonchi
Gastrointestinal: Soft, Non Tender, Non Distended and Normal Bowel Sounds
Genito-Urinary: Goodwin and Clear Urine; Negative Turbid Urine or Hematuria
Extremities: Negative Edema
Skin: Negative Jaundice
Neurological: Other (Resting calmly.)
Objective Data
Lab Data
Lab Results
11/09/23 05:08
11/10/23 04:32
PT 14.5 Sec (11.4-14.6) 10/27/23 08:56
INR 1.12 10/27/23 08:56
Estimated Creat Clear 62 ml/min 11/10/23 04:32
Total Bilirubin 0.5 mg/dl (0.2-1.3) 11/02/23 05:07
AST 27 U/L (17-59) 11/02/23 05:07
ALT 25 U/L (0-50) 11/02/23 05:07
Alkaline Phosphatase 76 U/L (38-126) 11/02/23 05:07
Most recent labs reviewed.
Micro Results:
11/01/23 11:22 Blood Culture - Final
Blood/Venous Serratia marcescens
Gram Stain - Final
11/01/23 20:48 Blood Culture - Final
Blood/Venous No Growth - Final Report
11/01/23 20:48 Urine Culture - Final
Urine NO GROWTH
10/18/23 10:33 Blood Culture - Final
Blood/Venous No Growth - Final Report
10/18/23 18:21 Urine Culture - Final
Urine NO GROWTH
10/16/23 12:56 Urine Culture - Final
Urine NO GROWTH
Imaging:
10/22/2023 CXR (portable): Moderate opacification of the right infrahilar region and mid right lower lung field concerning for developing pneumonia. A tiny left pleural effusion is noted. No pneumothorax seen.
10/16/23 CXR: No acute cardiopulmonary process.
10/17/23 Vascular US: Right carotid: Extensive atherosclerotic disease with peak systolic velocity within the proximal ICA measuring 616 cm/s. Elevated end-diastolic velocity and ICA/CCA ratio compatible with a greater than 70% stenosis. Left
carotid: Mild calcified plaque/intimal thickening within the bulb proximal ICA causing less than 50% luminal narrowing.
10/18/23 CXR: There are new areas of airspace disease in both lower lobes, left greater than right. Findings suggest pneumonia.
10/19/23 Brain MRI: No acute intracranial abnormality. Prior small infarcts within the left cerebellar hemisphere, similar in appearance prior. Mucosal thickening with layering secretions in the right maxillary sinus.
11/01/23 CXR: Some hazy right basilar opacification which could represent pneumonitis.
[2023-11-10 11:37] LABS: Glucose - Point of Care 135 mg/dl (70-99)
--- NOTE | 2023-11-10 13:18 | CM ---
As per nursing Pts behaviors improved.
Psychiatry involved.
Spoke with Daphne at [facility] they do not have a bed for pt.
LM with Daphne [phone] [address] to place in care port.
Continues tube feedings.
PLAN To Snf after located
--- NOTE | 2023-11-10 14:16 | PTCARENOTE ---
Patient calm this morning. Not restless and following commands. Pt able to answer simple questions. Conversation still confused. When arrived, patient assisted x1 into carrington chair. performing swallowing exercises with patient. Pt denies any
pain. Assessment, care and VS as charted.
--- NOTE | 2023-11-10 14:43 | W.PN.UPDATE ---
Update Note
Progress Note Update
patient seen chart reviewed. spoke with nursing and with the bk agosto's . the patient was much the same as he was yesterday. alert calm but remaining very confused. he was very aware of being asked repeatedly 'what is the year....where are
you.....etc' and was constantly reading and rereading the date on the wall and then riffing on the number 24. unfortunately there is no medicine to cure this. according to this is NOT his baseline. he has not received a prn of ativan since
the day before yesterday. he is no longer in restraints. now it is likely the feeding tube which will be an obstacle to care in an snf. spoke w ms hugo about referrals which have been made. mr kay's had chosen [facility] which has since
rejected mr kay. i toyed with reducing seroquel ...could this be confusing him but i am concerned that he will become aggressive again this am. for tomorrow am will hold the first dose of seroquel in the am and see how he does
[2023-11-10 17:36] LABS: Glucose - Point of Care 118 mg/dl (70-99)
[2023-11-10] MEDS: LOVENOX 40 MG SC (18:15)
[2023-11-10] MEDS: REMERON 7.5 MG TUBE (20:46)
[2023-11-10] MEDS: SEROQUEL 25 MG TUBE (20:46)
[2023-11-10] MEDS: ATIVAN 0.25 MG TUBE (22:37)
--- NOTE | 2023-11-10 23:02 | PTCARENOTE ---
Ethan is very confused. Not making sense is conversation, goes on tangents about his , going to the farm, and cleaning. Re-oriented frequently to place, time and situation. Pt appearing anxious and is restless in bed, playing with blankets,
attempting to get out of bed, taking off BP cuff. PRN Ativan given per MAR via PEG. RN sitting outside closest nursing station. Med sitter at bedside. Bed alarm set.
--- NOTE | 2023-11-10 23:37 | PTCARENOTE ---
Ethan was progressively becoming more uncooperative and agitated when staff re-oriented him. He was made aware that if he didnt listen to staff he would become restrained for safety. Ethan became argumentative and said 'you assholes'. Bilateral
soft wrist restraints applied and 4 side rails up on bed. Staff allowing pt to calm down at this time.
[2023-11-10 23:38] LABS: Glucose - Point of Care 128 mg/dl (70-99)
[2023-11-11] VITALS (10 sets, daily range): BP systolic 106–145; BP diastolic 45–89; BMI 19.2; BMI 18.4
[2023-11-11 06:12] LABS: Glucose - Point of Care 148 mg/dl (70-99)
[2023-11-11] MEDS: NOVOLOG FLEXPEN-LOW RESISTANCE SC ×3 (06:18→17:53)
--- NOTE | 2023-11-11 06:21 | PTCARENOTE ---
Patient has been cooperative and calm. Not attempting to get up or remove tubes/lines. Bilateral soft wrist restraints were removed at 0400.
[2023-11-11 08:13] LABS: Glucose - Point of Care 142 mg/dl (70-99)
--- NOTE | 2023-11-11 08:53 | W.PN.HOSP.TC ---
Today's Communication/Plan
-
Discharge planning
Transfer to [facility]
Assessment / Plan
Assessment / Plan
General: Acutely and appears chronically ill but no acute distress, confused, oriented to hospital, month, not year.
HEENT: Normocephalic, Atraumatic and Moist Mucous Membranes
Respiratory: Clear to auscultation bilateral; Negative Wheezes, or Rales
Cardiac: Regular Rhythm and S1/S2
GI: Soft, Nontender and Nondistended
Musculoskeletal: No Clubbing, No Cyanosis and No Edema
Neuro: Awake, Alert and oriented today, sitting in the chair, no neurological focality deficits
Psych: Calm, follow simple commands, judgment and insight still impaired but improving
Acute toxic metabolic encephalopathy:
Improving
Brain MRI no acute abnormality
Etiology possible COVID-19 related encephalopathy and delirium with multiple offending factors during this hospital stay.
Off restraints this morning and looks comfortable.
Psychiatry stopped standing doses of Ativan prior. Continue on Seroquel and Mirtazapine and low-dose as needed Ativan.
Speech therapy reevaluated with VSE but failed. Continue tube feedings
Sepsis with bacteremia, Serratia Marcescens Bacteremia-CLABSI/PICC line related versus recurrent aspiration pneumonia:
Improving
Continue IV ceftriaxone and plan to switch to oral antibiotics over the next 24 hours through 11/11.
Central line discontinued
ID reconsult appreciated
Remains afebrile
WBC stable
Prediabetes mellitus:
Insulin sliding scale while in the hospital
Hemoglobin A1c 5.8
Dysphagia:
Tolerating PEG feedings
TPN discontinued
Status post PEG on 10/30.
Speech therapy reeval and failed VSE. Continue TF
Aspiration pneumonia:
Status post treated with course of Unasyn
COVID-19:
Off isolation precautions
Status post treated with 5 days of Paxlovid
Western blot Lyme test came back negative for IgM and positive for IgG.
Hyponatremia -resolved.
Hyperkalemia - resolved.
Acute hypoxic respiratory failure:
Resolved
Urinary retention:
Continue following per urology recommendations due to urethral stricture
Discussed with urology and urology evaluated him today and recommend to continue Ford catheter and plan to do void trial as outpatient in the rehab facility.
Past medical problems:
Essential hypertension
Dyslipidemia
Prediabetes mellitus
TIA/brain infarcts
PVD with carotid stenosis status post left CEA
Prostate cancer
DVT prophylaxis:
Lovenox 40 mg SQ daily
Full code
Dispo -medically stable for discharge to SNF once bed available. Case management aware.
Anticipated Discharge: Within 24 hours
Subjective/Interval History
-
Date of Service: November 11, 2023
Patient seen and examined. Seems less confused overall. No complaints.
Objective Data
-
Vital Signs:
Vital Signs
Temp Pulse Resp BP Pulse Ox
98 F 68 15 134/89 98
11/11/23 07:43 11/11/23 06:00 11/11/23 06:00 11/11/23 06:00 11/10/23 20:36
I&O
11/10/23 11/11/23 11/12/23
06:59 06:59 06:59
Intake Total 1015 / 1015 30 30
Output Total 950 / 950 1375 / 1375
Balance 65 / 65 -1345 / -1345
Review of Systems
-
Unable to obtain full review of systems at this time due to: Acuity
History Source: Patient
All other systems: Reviewed and negative
--- NOTE | 2023-11-11 09:15 | W.PN.ID1 ---
Date of Service
Date of Service: November 11, 2023
Today's Communication
Transition to cefdinir.
Assessment / Plan
# Fever - resolved
# Serratia bacteremia (03/21 set; 11/01/23)
# Recurrent aspiration pneumonia
# Dysphagia; s/p PEG 10/31/23
# Urinary retention requiring goodwin
# Persistent encephalopathy
- Ucx neg
- Repeat bcx neg to date.
?possible source from recent PICC for TPN (discontinued 11/01) vs. possible aspiration
- Transition to cefdinir. To complete tx 11/12/23.
# s/p Symptomatic COVID infection
- Symptom onset 10/14 evening
- s/p 5-day course of Paxlovid
- S/p 10d isolation
#Additional Past Medical History:
Mild dementia
Hypertension
Dyslipidemia
TIA
Left cerebellar chronic infarcts
Carotid stenosis s/p Left CEA
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
Prostate cancer status post prostatectomy
Heel, wrist and pelvis repair 1968
����������������������������������������������������������
Chief Complaint
-: Pneumonia and Bacteremia
Subjective / Review of Systems
Review of Systems: No Fever, No Chills and No Cough
Vital Signs / Physical Exam
Vital Signs
Vital Signs
Temp Pulse Resp BP Pulse Ox
98 F 68 15 134/89 98
11/11/23 07:43 11/11/23 06:00 11/11/23 06:00 11/11/23 06:00 11/10/23 20:36
Physical Exam
Constitutional: No Acute Distress, Comfortable, Chronically Ill and Non-toxic
Head: Normocephalic
Cardiovascular: S1/S2; Negative S3/S4
Pulmonary: Clear and Non Labored; Negative Wheezes, Rales or Rhonchi
Gastrointestinal: Soft, Non Tender, Non Distended, Normal Bowel Sounds and Other (PEG in place)
Genito-Urinary: Goodwin and Clear Urine; Negative Turbid Urine or Hematuria
Extremities: Negative Edema
Skin: Negative Jaundice
Neurological: Other (Resting calmly.)
Objective Data
Lab Data
Lab Results
11/09/23 05:08
11/10/23 04:32
PT 14.5 Sec (11.4-14.6) 10/27/23 08:56
INR 1.12 10/27/23 08:56
Estimated Creat Clear 62 ml/min 11/10/23 04:32
Total Bilirubin 0.5 mg/dl (0.2-1.3) 11/02/23 05:07
AST 27 U/L (17-59) 11/02/23 05:07
ALT 25 U/L (0-50) 11/02/23 05:07
Alkaline Phosphatase 76 U/L (38-126) 11/02/23 05:07
Most recent labs reviewed.
Micro Results:
11/01/23 11:22 Blood Culture - Final
Blood/Venous Serratia marcescens
Gram Stain - Final
11/01/23 20:48 Blood Culture - Final
Blood/Venous No Growth - Final Report
11/01/23 20:48 Urine Culture - Final
Urine NO GROWTH
10/18/23 10:33 Blood Culture - Final
Blood/Venous No Growth - Final Report
10/18/23 18:21 Urine Culture - Final
Urine NO GROWTH
10/16/23 12:56 Urine Culture - Final
Urine NO GROWTH
Imaging:
10/22/2023 CXR (portable): Moderate opacification of the right infrahilar region and mid right lower lung field concerning for developing pneumonia. A tiny left pleural effusion is noted. No pneumothorax seen.
10/16/23 CXR: No acute cardiopulmonary process.
10/17/23 Vascular US: Right carotid: Extensive atherosclerotic disease with peak systolic velocity within the proximal ICA measuring 616 cm/s. Elevated end-diastolic velocity and ICA/CCA ratio compatible with a greater than 70% stenosis. Left
carotid: Mild calcified plaque/intimal thickening within the bulb proximal ICA causing less than 50% luminal narrowing.
10/18/23 CXR: There are new areas of airspace disease in both lower lobes, left greater than right. Findings suggest pneumonia.
10/19/23 Brain MRI: No acute intracranial abnormality. Prior small infarcts within the left cerebellar hemisphere, similar in appearance prior. Mucosal thickening with layering secretions in the right maxillary sinus.
11/01/23 CXR: Some hazy right basilar opacification which could represent pneumonitis.
[2023-11-11] MEDS: LOW STRENGTH ASPIRIN 81 MG TUBE (10:23)
[2023-11-11] MEDS: MYCOSTATIN ORAL SUSPENSION 5 ML PO ×4 (10:23→22:55)
[2023-11-11] MEDS: LOPRESSOR 50 MG TUBE (10:23)
[2023-11-11] MEDS: PREVACID 30 MG TUBE (10:24)
[2023-11-11] MEDS: OMNICEF 300 MG TUBE (10:26)
--- NOTE | 2023-11-11 10:53 | CM ---
CM spoke with patient's who stated that she feels patient may benefit from 'subacute rehab'. CM explained the difference between the various levels of care and that patient has been recommended for SNF for STR. Patient's stated that she
rolfed [facility] and she feels that SNF level of care would not provide enough Physical Therapy for patient. does understand that patient would not be able to tolerate Acute Rehab.
was then agreeable to have another referral sent to [facility] to evaluate if admissions would now be agreeable to admission. Patient's is refusing to provide any other SNF options.
Patient's feels that patient needs additional time in the hospital and additional PT in house to monitor for improvement in mental status.
CM will continue to follow.
[2023-11-11 12:34] LABS: Glucose - Point of Care 130 mg/dl (70-99)
--- NOTE | 2023-11-11 13:13 | W.PN.UPDATE ---
Update Note
Progress Note Update
patient seen chart reviewed. spoke with nursing. friend donya at bedside. mr kay again is pleasantly confused. this is the third day in a row where he is actually jocularly interactive clearly recognizing eg this proposal lead writer but oriented only to
person. it is notable that last evening however he was again agitated and wound up in restraints which were removed at 4 am. nursing reports around four pm seems to be the time the agitation starts. have amended seroquel to 25 mg bid to be given at
4 pm and hs. hopefully this encephalopathy will continue to clear. he is certainly better than he was but the periods of agitation /feeding tube continue to prevent successful placement psych will follow
--- NOTE | 2023-11-11 14:15 | CM ---
[facility] has declined. CM left message for patient's .
--- NOTE | 2023-11-11 14:49 | CM ---
CM spoke with patient at length regarding discharge planning. Patient is refusing to offer alternative SNF placement options. Patient's stated that she feels [facility] in [place] will be able to accommodate patient in 'subacute'. She
does not believe SNF options would be available to him and she was told the SNF's in the area will not accept him.
CM counseled that patient has been recommended for SNF and that Acute Rehab would not be appropriate. Patient's stated that she wants to hear from psychiatry regarding patient's alf cognition. She also wants to wait for patient's
behavior to improve so she has more options for rehabs to choose from.
CM advised that discharge planning efforts need to continue. Patient's refused to provide additional choices.
--- NOTE | 2023-11-11 15:27 | PTCARENOTE ---
Pt downgraded to MedSurg. Report called to the receiving RN. Pt belongings are collected from room. Pt transported via stretcher.
[2023-11-11] MEDS: SEROQUEL 25 MG TUBE (16:05)
[2023-11-11] MEDS: LOVENOX 40 MG SC (16:05)
[2023-11-11 17:52] LABS: Glucose - Point of Care 114 mg/dl (70-99)
--- NOTE | 2023-11-11 19:29 | W.PN.UPDATE ---
Update Note
Progress Note Update
Reported by the nursing staff that patient pulled out his peg tube. GI consult was placed for peg tube replacement
[2023-11-11] MEDS: LOPRESSOR TUBE (20:11)
[2023-11-11] MEDS: OMNICEF TUBE (20:11)
[2023-11-11] MEDS: PREVACID TUBE (20:12)
[2023-11-11] MEDS: SEROQUEL TUBE (20:12)
[2023-11-11] MEDS: APRESOLINE 5 MG IV (20:12)
[2023-11-11] MEDS: REMERON TUBE (20:12)
--- NOTE | 2023-11-11 20:49 | PTCARENOTE ---
Patient agitated at beginning of this nurses shift. Day shift nurse and this nurse heard Med Sitter attempting to redirect patient back into bed. We went into room and patient was standing at bedside with PEG TUBE removed from site. This nurse and
day shift nurse applied b/l wrist restraints and placed a Ford to maintain the opening for his peg tube site. Messaged PRINTING SPECIALIST regarding overnight medications that were to be given through TUBE. PRINTING SPECIALIST states these medications can wait until GI replaces
TUBE in AM. This nurse gave IV Hydralazine due to elevated BP. Patient now calm in room after redirection but still a danger to self due to confusion causing risk to remove IV site and Urinary Ford Catheter.
[2023-11-12 00:15] LABS: Glucose - Point of Care 103 mg/dl (70-99)
[2023-11-12] MEDS: NOVOLOG FLEXPEN-LOW RESISTANCE SC ×4 (00:22→18:29)
[2023-11-12 06:58] LABS: Glucose - Point of Care 107 mg/dl (70-99)
[2023-11-12 07:10] VITALS: BP 145/76
[2023-11-12] MEDS: LOPRESSOR TUBE ×2 (08:02→19:18)
[2023-11-12] MEDS: OMNICEF TUBE (08:02)
[2023-11-12] MEDS: LOW STRENGTH ASPIRIN TUBE (08:02)
[2023-11-12] MEDS: MYCOSTATIN ORAL SUSPENSION 5 ML PO ×4 (08:03→23:01)
[2023-11-12] MEDS: PREVACID TUBE (08:03)
--- NOTE | 2023-11-12 08:57 | W.PN.HOSP.TC ---
Today's Communication/Plan
-
GI follow-up
Assessment / Plan
Assessment / Plan
General: Acutely and appears chronically ill but no acute distress, confused, oriented to hospital, month, not year.
HEENT: Normocephalic, Atraumatic and Moist Mucous Membranes
Respiratory: Clear to auscultation bilateral; Negative Wheezes, or Rales
Cardiac: Regular Rhythm and S1/S2
GI: Soft, Nontender and Nondistended
Musculoskeletal: No Clubbing, No Cyanosis and No Edema
Neuro: Awake, Alert and oriented today, sitting in the chair, no neurological focality deficits
Psych: Calm, follow simple commands, judgment and insight still impaired but improving
Acute toxic metabolic encephalopathy:
Improving
Brain MRI no acute abnormality
Etiology possible COVID-19 related encephalopathy and delirium with multiple offending factors during this hospital stay.
Off restraints this morning and looks comfortable.
Psychiatry stopped standing doses of Ativan prior. Continue on Seroquel and Mirtazapine and low-dose as needed Ativan.
Speech therapy reevaluated with VSE but failed. Continue tube feedings
Sepsis with bacteremia, Serratia Marcescens Bacteremia-CLABSI/PICC line related versus recurrent aspiration pneumonia:
Improving
Continue IV ceftriaxone and plan to switch to oral antibiotics over the next 24 hours through 11/11.
Central line discontinued
ID reconsult appreciated
Remains afebrile
WBC stable
Prediabetes mellitus:
Insulin sliding scale while in the hospital
Hemoglobin A1c 5.8
Dysphagia: Patient accidentally pulled out his feeding tube overnight. Currently has Ford catheter in place. GI to evaluate today.
Tolerating PEG feedings
TPN discontinued
Status post PEG on 10/30.
Speech therapy reeval and failed VSE. Continue TF
Aspiration pneumonia:
Status post treated with course of Unasyn
COVID-19:
Off isolation precautions
Status post treated with 5 days of Paxlovid
Western blot Lyme test came back negative for IgM and positive for IgG.
Hyponatremia -resolved.
Hyperkalemia - resolved.
Acute hypoxic respiratory failure:
Resolved
Urinary retention:
Continue following per urology recommendations due to urethral stricture
Discussed with urology and urology evaluated him today and recommend to continue Ford catheter and plan to do void trial as outpatient in the rehab facility.
Past medical problems:
Essential hypertension
Dyslipidemia
Prediabetes mellitus
TIA/brain infarcts
PVD with carotid stenosis status post left CEA
Prostate cancer
DVT prophylaxis:
Lovenox 40 mg SQ daily
Full code
Dispo -awaiting SNF placement.
Anticipated Discharge: 24 - 48 hours
Subjective/Interval History
-
Date of Service: November 12, 2023
Patient seen and examined. Remains pleasantly confused. No complaints.
Objective Data
-
Vital Signs:
Vital Signs
Temp Pulse Resp BP Pulse Ox
97.4 F 70 16 145/76 98
11/12/23 07:10 11/12/23 08:02 11/12/23 07:10 11/12/23 08:02 11/12/23 07:10
I&O
11/11/23 11/12/23 11/13/23
06:59 06:59 06:59
Intake Total 30 / 30 0 / 0
Output Total 1375 / 1375 850 / 850
Balance -1345 / -1345 -850 / -850
Review of Systems
-
History Source: Patient
All other systems: Reviewed and negative
--- NOTE | 2023-11-12 09:19 | CON.GI ---
Addendum entered and electronically signed by Aquilino Jenkins MD 11/12/23 14:47:
I saw and examined the patient.
The ELECTRICAL MECHANICAL TECHNICIAN or PA's note was reviewed and I agree with the note.
Comment:
Pt with hx of covid pneumonia, change in [place] with PEG tube placement 10/31 who pulled out his peg last night. goodwin put in site. He has no complaints of abdominal pain.
abd: goodwin in site, some liquid drainage around, no erythema
impression
pulled out peg
plan:
since the tract was not formed (PEG put in less than 1 month) will need CT scan to evaluate. If tube is not in his stomach it will need to be removed today.
IV PPI bid
regardless will need endoscopic replacement in light of recent initial placement.
ideally should repeat swallow evaluation if he can pass this it would be better as he is likely to pull it out again
d/w Dr. Cardenas and Vinicio
Original Note:
Consultation
-
Date/Time Consultation Requested: 11/11/231934
Date/Time Consultation Performed: 11/12/23829
Requesting Provider: Yue DYE
Performing Provider: Dr Jenkins / An Hua PA-C
Reason for Consultation: PEG tube pulled out
Medical History
Chief Complaint / HPI
Chief Complaint: PEG tube pulled out by patient
History of Present Illness:
This is a 78 year old male with a past medical history of TIA/CVA, CEA, prostate CA with prostatectomy, HTN, hyperlipidemia, admitted 10/16/2023 for COVID pneumonia. GI was consulted for PEG placement as patient had been on TPN and with dysphagia and
aspiration risk. PEG was placed on 10/31/[address] Almazan, Dr. Lowry. Patient with ongoing altered mental status and was put in restraints with abdominal binder placed to prevent pulling the PEG, but unfortunately he did pull PEG tube last
evening 11/11/23. Goodwin catheter was reinserted and remains in place now with binder. Patient denies any abdominal pain. He is oriented x2 (person, place) but remains confused and does not recall pulling out the tube.
Past Medical History
Past Medical History: Other (Cancer (prostate cA iwth prior prostectomy), CVA (prior TIA 2017, left cerebellar chronic infarct ), HTN, Hypercholesterolemia and Other (covid PNA with prior covid in 2020 and hx vaccination, anaplasmosis
phagocytophilium, prior smoker, hard of hearing ))
Past Surgical History: Other (Orthopedic (costa's cyst removal 2006, heal, wrist and pelvic repair 1967), Tonsilectomy, Urological (prostectomy) and Other (left CEA for carotid stenosis ))
Social History
Tobacco: Former Smoker
Alcohol: Occasional
Personal:
Living: With Family
Allergies / Home Medications
Allergy/AdvReac Type Severity Reaction Status Date / Time
Sulfa (Sulfonamide Allergy Unknown Verified 08/28/18 06:05
Antibiotics)
�Medication �Instructions �Recorded
aspirin 81 mg tablet,delayed 81 mg PO DAILY Blood Clot 12/20/17
release Prevention/Tx
metoprolol succinate 100 mg 100 mg PO QPM Blood Pressure 12/20/17
tablet,extended release 24 hr
ramipril 10 mg capsule 10 mg PO QPM Blood Pressure 12/20/17
atorvastatin 40 mg tablet 40 mg PO QPM ##30 12/22/17
Lactobac no.2-Bifidobac no.1-S. 1 cap PO DAILY Gastrointestinal 10/16/23
thermo 112.5 billion cell capsule Issue
(Visbiome)
cholecalciferol (vitamin D3) 50 100 mcg PO DAILY Supplement 10/16/23
mcg (2,000 unit) tablet (Vitamin
D3)
metformin 500 mg tablet 500 mg PO BIDWMEAL Diabetes 10/16/23
thiamine HCl (vitamin B1) 250 mg 250 mg PO BID Supplement 10/16/23
tablet
Review of Systems
-
Unable to obtain full review of systems at this time due to: Other (altered mental status)
Vital Signs
Temp Pulse Resp BP Pulse Ox
97.4 F 70 16 145/76 98
11/12/23 07:10 11/12/23 08:02 11/12/23 07:10 11/12/23 08:02 11/12/23 07:10
Physical Exam
Exam
General: Well Developed, Well Nourished and No Apparent Distress
Respiratory: Clear
Cardiac: Regular Rhythm
GI: Soft, Non Tender, Non Distended, Normal Bowel Sounds and Other (Goodwin catheter in place; small amount of purulent vs gastric fluid surrounding opening for PEG with minimal erythema of the overlying skin)
Neuro: Awake and Alert
Psych: Confused
Results
WBC 7.4 10^3/uL (4.8-10.8) 11/09/23 05:08
Hgb 11.7 g/dL (13.0-18.0) L 11/09/23 05:08
Hct 34.5 % (39.0-52.0) L 11/09/23 05:08
MCV 99.7 fL (80.0-94.0) H 11/09/23 05:08
Plt Count 310 10^3/uL (130-400) 11/09/23 05:08
Absolute Neuts (auto) 4.1 10^3/uL (1.4-6.5) 11/09/23 05:08
PT 14.5 Sec (11.4-14.6) 10/27/23 08:56
INR 1.12 10/27/23 08:56
Sodium 135 mmol/L (135-145) 11/10/23 04:32
Potassium 4.7 mmol/L (3.5-5.1) 11/10/23 04:32
Chloride 100 mmol/L (98-107) 11/10/23 04:32
Carbon Dioxide 32 mmol/L (22-30) H 11/10/23 04:32
BUN 24 mg/dl (9-20) H 11/10/23 04:32
Creatinine 0.7 mg/dL (0.7-1.3) 11/10/23 04:32
Calcium 8.8 mg/dl (8.4-10.2) 11/10/23 04:32
Total Bilirubin 0.5 mg/dl (0.2-1.3) 11/02/23 05:07
AST 27 U/L (17-59) 11/02/23 05:07
ALT 25 U/L (0-50) 11/02/23 05:07
Alkaline Phosphatase 76 U/L (38-126) 11/02/23 05:07
Diagnostic Image Results:
Prior GI Procedures:
EGD: 10/31/23 EGD, Dr. Almazan:
- Boston-colored mucosa suggestive of long-segment
Mcrae's esophagus. Biopsied.
- Small hiatal hernia.
- A few gastric polyps.
- Duodenal erosions without bleeding.
- Normal first portion of the duodenum and second
portion of the duodenum.
- A PEG placement was successfully completed.
Assessment / Plan
-
78 year old male with a past medical history of TIA/CVA, CEA, prostate CA with prostatectomy, HTN, hyperlipidemia, admitted 10/16/2023 for COVID pneumonia. GI was consulted for PEG placement as patient had been on TPN and with dysphagia and
aspiration risk. PEG was placed on 10/31/[address] Almazan, Dr. Lowry. Patient with ongoing altered mental status and was put in restraints with abdominal binder placed to prevent pulling the PEG, but unfortunately he did pull PEG tube last
evening 11/11/23. Goodwin catheter was reinserted and remains in place now with binder. Patient denies any abdominal pain. He is oriented x2 (person, place) but remains confused and does not recall pulling out the tube. Infectious Disease following
patient; he is currently on IV cefdinir.
IMPRESSION / PLAN:
Status post PEG placement 10/31/23 for dysphagia, aspiration risk and altered mental status - tube pulled out 11/11/23 by patient
- will obtain CT abdomen to evaluate if Goodwin catheter is in the stomach; rule out abscess or other complication
- IV PPI (pantoprazole 40mg IV BID)
- continue abdominal binder, restraints
- possible Surgical consult, await CT results
- repeat video swallow evaluation
- to consider endoscopic re-placement of the PEG tube on Tuesday -- pending CT results, to discuss further w/ Dr Jenkins
Other medical problems managed as per hospitalist, ID, other consulting specialists.
-
-
Thank you for consultation and allowing me to participate in the patient's care. Please call the salesperson women's dresses GI physician during the after hours with any questions or concerns.
--- NOTE | 2023-11-12 09:52 | W.PN.ID1 ---
Date of Service
Date of Service: November 12, 2023
Today's Communication
Discontinue further antibiotics.
Assessment / Plan
# Fever - resolved
# Serratia bacteremia (03/21 set; 11/01/23)
# Recurrent aspiration pneumonia
# Dysphagia; s/p PEG 10/31/23
# Urinary retention requiring goodwin
# Persistent encephalopathy
- Ucx neg
- Repeat bcx neg to date.
?possible source from recent PICC for TPN (discontinued 11/01) vs. possible aspiration
Previously patient was to continue antibiotics through today. PEG tube has been inadvertently dislodged. Will discontinue further antibiotics as patient is otherwise clinically stable.
# s/p Symptomatic COVID infection
- Symptom onset 10/14 evening
- s/p 5-day course of Paxlovid
- S/p 10d isolation
#Additional Past Medical History:
Mild dementia
Hypertension
Dyslipidemia
TIA
Left cerebellar chronic infarcts
Carotid stenosis s/p Left CEA
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
Prostate cancer status post prostatectomy
Heel, wrist and pelvis repair 1968
����������������������������������������������������������
Chief Complaint
-: Pneumonia and Bacteremia
Subjective / Review of Systems
Patient seen and examined. Nursing report indicates the patient pulled out PEG tube last evening. Currently the tract is being held in place with a Goodwin tube.
Review of Systems: No Fever and No Chills
Vital Signs / Physical Exam
Vital Signs
Vital Signs
Temp Pulse Resp BP Pulse Ox
97.4 F 70 16 145/76 98
11/12/23 07:10 11/12/23 08:02 11/12/23 07:10 11/12/23 08:02 11/12/23 07:10
Physical Exam
Constitutional: No Acute Distress, Comfortable and Non-toxic
Eyes: Sclera Anicteric
Cardiovascular: S1/S2; Negative S3/S4
Pulmonary: Non Labored
Neurological: Awake and Alert
Psychological: Confused
Objective Data
Lab Data
Lab Results
11/09/23 05:08
11/10/23 04:32
PT 14.5 Sec (11.4-14.6) 10/27/23 08:56
INR 1.12 10/27/23 08:56
Estimated Creat Clear 62 ml/min 11/10/23 04:32
Total Bilirubin 0.5 mg/dl (0.2-1.3) 11/02/23 05:07
AST 27 U/L (17-59) 11/02/23 05:07
ALT 25 U/L (0-50) 11/02/23 05:07
Alkaline Phosphatase 76 U/L (38-126) 11/02/23 05:07
Most recent labs reviewed.
Micro Results:
11/01/23 11:22 Blood Culture - Final
Blood/Venous Serratia marcescens
Gram Stain - Final
11/01/23 20:48 Blood Culture - Final
Blood/Venous No Growth - Final Report
11/01/23 20:48 Urine Culture - Final
Urine NO GROWTH
10/18/23 10:33 Blood Culture - Final
Blood/Venous No Growth - Final Report
10/18/23 18:21 Urine Culture - Final
Urine NO GROWTH
10/16/23 12:56 Urine Culture - Final
Urine NO GROWTH
Imaging:
10/22/2023 CXR (portable): Moderate opacification of the right infrahilar region and mid right lower lung field concerning for developing pneumonia. A tiny left pleural effusion is noted. No pneumothorax seen.
10/16/23 CXR: No acute cardiopulmonary process.
10/17/23 Vascular US: Right carotid: Extensive atherosclerotic disease with peak systolic velocity within the proximal ICA measuring 616 cm/s. Elevated end-diastolic velocity and ICA/CCA ratio compatible with a greater than 70% stenosis. Left
carotid: Mild calcified plaque/intimal thickening within the bulb proximal ICA causing less than 50% luminal narrowing.
10/18/23 CXR: There are new areas of airspace disease in both lower lobes, left greater than right. Findings suggest pneumonia.
10/19/23 Brain MRI: No acute intracranial abnormality. Prior small infarcts within the left cerebellar hemisphere, similar in appearance prior. Mucosal thickening with layering secretions in the right maxillary sinus.
11/01/23 CXR: Some hazy right basilar opacification which could represent pneumonitis.
Care Review
Plan reviewed with: Nurse
[2023-11-12] MEDS: PROTONIX IV 40 MG IV ×2 (12:00→19:39)
[2023-11-12 12:44] LABS: Glucose - Point of Care 102 mg/dl (70-99)
[2023-11-12] MEDS: NSS (PRESERVATIVE FREE) 10 ML IV ×2 (13:01→19:39)
[2023-11-12 15:42] VITALS: BP 132/71
--- NOTE | 2023-11-12 15:46 | W.PN.UPDATE ---
Update Note
Progress Note Update
patient seen chart reviewed, spoke with nursing as well. Patients present and spoke one on one with to obtain history - it seems that he was starting to consistently improve in regard to mentation and was clearing gradually, however was moved
yesterday to different unit in the afternoon around the time when he usually becomes agitated. Suspect that the time of day when pt experiences more confusion & agitation coinciding with a sudden change of his surroundings led to his becoming more
confused again. Pulled out his peg tube - now awaiting CT to determine further steps regarding re-inserting peg tube. In the interim, is unable to take PO medications.
Pt was pleasant on interview - remains confused and disoriented to place and time, though is oriented to self. Noted to become confused while speaking and needing redirection.
stop seroquel as he cannot take PO medication at this time
re-trial risperidone dissolving - 0.25mg AM + 0.5mg BID (4PM & HS). He did previously experience parkinsonism/worsened tremors on risperidone (about 10-14 days ago), however TME was more severe at that time and he was on total daily dose of 1.25mg -
most likely can tolerate, at least for short term while waiting peg tube placement
[2023-11-12] MEDS: 0.45%NACL 1000 IV (17:28)
[2023-11-12] MEDS: LOVENOX 40 MG SC (17:28)
[2023-11-12] MEDS: RISPERDAL M-TAB (ORALLY DISINTEGRATING) 0.5 MG PO ×2 (17:28→23:01)
[2023-11-12 18:32] LABS: Glucose - Point of Care 116 mg/dl (70-99)
[2023-11-12] MEDS: FLUSH (NSS) 2 FLUSH IV (19:40)
--- NOTE | 2023-11-12 22:10 | PTCARENOTE ---
Patient managed to pull his temporary Ford from his peg tube site. Advised covering provider. Received order to add mitts to restraints. Also 20 FR Ford was placed back in peg tube site as advised.
[2023-11-12] MEDS: REMERON TUBE (22:59)
[2023-11-12 23:14] VITALS: BP 152/79
[2023-11-13 00:04] LABS: Glucose - Point of Care 85 mg/dl (70-99)
[2023-11-13] MEDS: NOVOLOG FLEXPEN-LOW RESISTANCE SC ×4 (00:22→18:48)
--- NOTE | 2023-11-13 01:40 | PTCARENOTE ---
Patient turned himself sideways in the bed while restrained attempting to get out of bed. Advised covering provider. Orders received.
[2023-11-13] MEDS: RISPERDAL M-TAB (ORALLY DISINTEGRATING) 0.25 MG PO ×2 (02:29→09:20)
[2023-11-13] MEDS: 0.45%NACL 1000 IV ×2 (05:52→17:32)
[2023-11-13 06:00] VITALS: BMI 18.6
[2023-11-13 06:09] LABS: Glucose - Point of Care 100 mg/dl (70-99)
[2023-11-13 07:10] VITALS: BP 141/75
--- NOTE | 2023-11-13 08:58 | W.PN.HOSP.TC ---
Today's Communication/Plan
-
Continue current efforts
Assessment / Plan
Assessment / Plan
General: Acutely and appears chronically ill but no acute distress, confused, oriented to hospital, month, not year.
HEENT: Normocephalic, Atraumatic and Moist Mucous Membranes
Respiratory: Clear to auscultation bilateral; Negative Wheezes, or Rales
Cardiac: Regular Rhythm and S1/S2
GI: Soft, Nontender and Nondistended
Musculoskeletal: No Clubbing, No Cyanosis and No Edema
Neuro: Awake, Alert and oriented today, sitting in the chair, no neurological focality deficits
Psych: Calm, follow simple commands, judgment and insight still impaired but improving
Acute toxic metabolic encephalopathy: Remains very confused. Psychiatry assisting with delirium. Nursing has placed him in 4 point restraints.
Brain MRI no acute abnormality
Etiology possible COVID-19 related encephalopathy and delirium with multiple offending factors during this hospital stay.
Off restraints this morning and looks comfortable.
Psychiatry stopped standing doses of Ativan prior. Continue on Seroquel and Mirtazapine and low-dose as needed Ativan.
Speech therapy reevaluated with VSE but failed. Continue tube feedings
Sepsis with bacteremia, Serratia Marcescens Bacteremia-CLABSI/PICC line related versus recurrent aspiration pneumonia:
Improving
Continue IV ceftriaxone and plan to switch to oral antibiotics over the next 24 hours through 11/11.
Central line discontinued
ID reconsult appreciated
Remains afebrile
WBC stable
Prediabetes mellitus:
Insulin sliding scale while in the hospital
Hemoglobin A1c 5.8
Dysphagia: Patient again pulled out his feeding tube overnight. Currently has Ford catheter in place. GI plans on inserting new PEG tube on Tuesday.
Tolerating PEG feedings
TPN discontinued
Status post PEG on 10/30.
Speech therapy reeval and failed VSE. Continue TF
Aspiration pneumonia:
Status post treated with course of Unasyn
COVID-19:
Off isolation precautions
Status post treated with 5 days of Paxlovid
Western blot Lyme test came back negative for IgM and positive for IgG.
Hyponatremia -resolved.
Hyperkalemia - resolved.
Acute hypoxic respiratory failure:
Resolved
Urinary retention:
Continue following per urology recommendations due to urethral stricture
Discussed with urology and urology evaluated him today and recommend to continue Ford catheter and plan to do void trial as outpatient in the rehab facility.
Past medical problems:
Essential hypertension
Dyslipidemia
Prediabetes mellitus
TIA/brain infarcts
PVD with carotid stenosis status post left CEA
Prostate cancer
DVT prophylaxis:
Lovenox 40 mg SQ daily
DNR
Dispo -awaiting SNF placement. I had a long discussion with the patient's on the phone today regarding goals of care. She now agrees to DNR. I explained that at this rate his delirium will take a very long time to improve. He is already
been in the hospital for 27 days. She is hopeful that he will improve and wants to continue treating him.
Anticipated Discharge: > 48 hours
Subjective/Interval History
-
Date of Service: November 13, 2023
Patient seen/examined, remains very confused. No complaints.
Objective Data
-
Vital Signs:
Vital Signs
Temp Pulse Resp BP Pulse Ox
98.2 F 106 18 141/75 99
11/13/23 07:10 11/13/23 07:10 11/13/23 07:10 11/13/23 07:10 11/13/23 07:10
I&O
11/12/23 11/13/23 11/14/23
06:59 06:59 06:59
Intake Total 0 / 0 900 / 900
Output Total 850 / 850 700 / 700
Balance -850 / -850 200 / 200
Review of Systems
-
Unable to obtain full review of systems at this time due to: Acuity
History Source: Patient
All other systems: Reviewed and negative
[2023-11-13] MEDS: LOPRESSOR TUBE ×2 (09:01→20:27)
[2023-11-13] MEDS: LOW STRENGTH ASPIRIN TUBE (09:02)
[2023-11-13] MEDS: MYCOSTATIN ORAL SUSPENSION 5 ML PO ×2 (09:20→17:05)
[2023-11-13] MEDS: PROTONIX IV 40 MG IV ×2 (09:21→20:36)
[2023-11-13] MEDS: NSS (PRESERVATIVE FREE) 10 ML IV ×2 (09:21→20:37)
--- NOTE | 2023-11-13 10:40 | W.PN.ID1 ---
Date of Service
Date of Service: November 13, 2023
Today's Communication
Observe off antibiotics.
Assessment / Plan
# Fever - resolved
# Serratia bacteremia (03/21 set; 11/01/23)
# Recurrent aspiration pneumonia
# Dysphagia; s/p PEG 10/31/23
- Peg pulled / dislodged several times
# Urinary retention requiring goodwin
# Persistent encephalopathy
- Ucx neg
- Repeat bcx neg to date.
?possible source from recent PICC for TPN (discontinued 11/01) vs. possible aspiration
Observe off antibiotics.
# s/p Symptomatic COVID infection
- Symptom onset 10/14 evening
- s/p 5-day course of Paxlovid
- S/p 10d isolation
#Additional Past Medical History:
Mild dementia
Hypertension
Dyslipidemia
TIA
Left cerebellar chronic infarcts
Carotid stenosis s/p Left CEA
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
Prostate cancer status post prostatectomy
Heel, wrist and pelvis repair 1968
����������������������������������������������������������
Chief Complaint
-: Pneumonia and Bacteremia
Subjective / Review of Systems
Patient seen and examined. Nursing reports ongoing confusion.
Review of Systems: No Fever and No Chills
Vital Signs / Physical Exam
Vital Signs
Vital Signs
Temp Pulse Resp BP Pulse Ox
98.2 F 106 18 141/75 99
11/13/23 07:10 11/13/23 07:10 11/13/23 07:10 11/13/23 07:10 11/13/23 07:10
Physical Exam
Constitutional: No Acute Distress, Comfortable and Non-toxic
Pulmonary: Non Labored
Gastrointestinal: Non Distended and Other (Abdominal binder in place.)
Neurological: Awake and Alert
Psychological: Confused
Objective Data
Lab Data
Lab Results
11/09/23 05:08
11/10/23 04:32
PT 14.5 Sec (11.4-14.6) 10/27/23 08:56
INR 1.12 10/27/23 08:56
Estimated Creat Clear 62 ml/min 11/10/23 04:32
Total Bilirubin 0.5 mg/dl (0.2-1.3) 11/02/23 05:07
AST 27 U/L (17-59) 11/02/23 05:07
ALT 25 U/L (0-50) 11/02/23 05:07
Alkaline Phosphatase 76 U/L (38-126) 11/02/23 05:07
Most recent labs reviewed.
Micro Results:
11/01/23 11:22 Blood Culture - Final
Blood/Venous Serratia marcescens
Gram Stain - Final
11/01/23 20:48 Blood Culture - Final
Blood/Venous No Growth - Final Report
11/01/23 20:48 Urine Culture - Final
Urine NO GROWTH
10/18/23 10:33 Blood Culture - Final
Blood/Venous No Growth - Final Report
10/18/23 18:21 Urine Culture - Final
Urine NO GROWTH
10/16/23 12:56 Urine Culture - Final
Urine NO GROWTH
Imaging:
10/22/2023 CXR (portable): Moderate opacification of the right infrahilar region and mid right lower lung field concerning for developing pneumonia. A tiny left pleural effusion is noted. No pneumothorax seen.
10/16/23 CXR: No acute cardiopulmonary process.
10/17/23 Vascular US: Right carotid: Extensive atherosclerotic disease with peak systolic velocity within the proximal ICA measuring 616 cm/s. Elevated end-diastolic velocity and ICA/CCA ratio compatible with a greater than 70% stenosis. Left
carotid: Mild calcified plaque/intimal thickening within the bulb proximal ICA causing less than 50% luminal narrowing.
10/18/23 CXR: There are new areas of airspace disease in both lower lobes, left greater than right. Findings suggest pneumonia.
10/19/23 Brain MRI: No acute intracranial abnormality. Prior small infarcts within the left cerebellar hemisphere, similar in appearance prior. Mucosal thickening with layering secretions in the right maxillary sinus.
11/01/23 CXR: Some hazy right basilar opacification which could represent pneumonitis.
--- NOTE | 2023-11-13 11:07 | W.PN.GI.CBS2 ---
Today's Communication / Plan
-
repeat video swallow
may reattempt tube placement but will likely pull out again. he has despite hand mitts and a binder
d/w Dr. Cardenas
Assessment / Plan
-
78 year old male with a past medical history of TIA/CVA, CEA, prostate CA with prostatectomy, HTN, hyperlipidemia, admitted 10/16/2023 for COVID pneumonia. GI was consulted for PEG placement as patient had been on TPN and with dysphagia and
aspiration risk. PEG was placed on 10/31/[address] Almazan, Dr. Lowry. Patient with ongoing altered mental status and was put in restraints with abdominal binder placed to prevent pulling the PEG, but unfortunately he did pull PEG tube last
evening 11/11/23. Goodwin catheter was reinserted and remains in place now with binder. Patient denies any abdominal pain. He is oriented x2 (person, place) but remains confused and does not recall pulling out the tube. Infectious Disease following
patient; he is currently on IV cefdinir.
IMPRESSION / PLAN:
Status post PEG placement 10/31/23 for dysphagia, aspiration risk and altered mental status - tube pulled out 11/11/23 by patient then again on 11/11
Plan:
1. difficult situation as he keep pulling out tube but luckily ct confirms goodwin is going into stomach
2. request repeat video swallow
3. he will likely keep pulling tubes but since the ct did show the goodwin went into his stomach could try a replacement tube with a gastrograffin xray. will try tomorrow.
Subjective
Subjective
Date of Service: November 13, [address] yesterday confirming goodwin in stomach then proceeded to pull out tube again. no distress per nurse who had replaced with another goodwin
Objective
Data Reviewed
Laboratory Data:
Laboratory Results
11/09/23 05:08
11/10/23 04:32
Laboratory Results
PT 14.5 Sec (11.4-14.6) 10/27/23 08:56
INR 1.12 10/27/23 08:56
Phosphorus 3.7 mg/dl (2.5-4.5) 10/31/23 05:38
Magnesium 2.2 mg/dl (1.6-2.3) 10/31/23 05:38
Total Bilirubin 0.5 mg/dl (0.2-1.3) 11/02/23 05:07
AST 27 U/L (17-59) 11/02/23 05:07
ALT 25 U/L (0-50) 11/02/23 05:07
Alkaline Phosphatase 76 U/L (38-126) 11/02/23 05:07
Vital Signs and I&O:
Vital Signs
Temp Pulse Resp BP Pulse Ox
98.2 F 106 18 141/75 99
11/13/23 07:10 11/13/23 07:10 11/13/23 07:10 11/13/23 07:10 11/13/23 07:10
I&O
11/12/23 11/13/23 11/14/23
06:59 06:59 06:59
Intake Total 0 / 0 900 / 900
Output Total 850 / 850 700 / 700
Balance -850 / -850 200 / 200
Physical Exam
Physical Exam
GI: Soft, Non Tender and Other (goodwin in place, nontender)
[2023-11-13] MEDS: MYCOSTATIN ORAL SUSPENSION PO ×2 (12:21→20:27)
--- NOTE | 2023-11-13 12:24 | W.PN.UPDATE ---
Update Note
Progress Note Update
Pt seen/chart reviewed/ spoke with nursing staff.
Pt was alert though still disoriented. He knows his own name, but believes it is 1968 and that we are all in a casino. 'We won a few bucks.'
Unable to contribute any further information, even when asked specifically.
I asked him why he had on the hand mitts, and he said 'Its something new, its for everyone to have a chance.' When I asked him if he remembered pulling out the feeling tube he said he did, but I am not convinced he did; more likely he was agreeing
with me.
No signs of agitation at present.
Hopefully will continue to improve and confusion will clear.
Continue current low dose Risperidone.
[2023-11-13] MEDS: NSS (PRESERVATIVE FREE) 0.25 ML IV (12:55)
[2023-11-13] MEDS: ATIVAN 0.5 MG IV (12:56)
[2023-11-13 13:00] LABS: Glucose - Point of Care 106 mg/dl (70-99)
--- NOTE | 2023-11-13 14:26 | PTCARENOTE ---
pt remains in 4pt soft limb restraints and b/l mits at this time. at bedside stating she wants him to be heavily medicated. i educated spouse on medication parameters and she just states she wants him to not be agitated. pt is calm at this time
but due to pulling at goodwin catheter and goodwin that is in place of peg, pt must keep restraints. pt put in chair-position at this time. medsitter in place. asking about palliative consult. MD made aware and consult placed.
--- NOTE | 2023-11-13 15:31 | CM ---
Patient requested information about palliative care. CM reviewed program and patient indicated that she did not think that an out patient program would be helpful at this time. Patient also asked to talk to patient advocate, CM sent
request to [facility]. Patient with questions about patient regression and medical concerns. CM updated patient nurse regarding questions. Patient continues on restraints, mitts. Patient sleeping when CM talking to . CM will continue to
follow for discharge planning needs.
Plan; TBD pending functional assessments
[2023-11-13 15:48] VITALS: BP 148/67
[2023-11-13] MEDS: LOVENOX 40 MG SC (17:03)
[2023-11-13] MEDS: RISPERDAL M-TAB (ORALLY DISINTEGRATING) 0.5 MG PO ×2 (17:04→23:49)
[2023-11-13 18:45] LABS: Glucose - Point of Care 77 mg/dl (70-99)
[2023-11-13] MEDS: REMERON TUBE (20:27)
[2023-11-13 23:28] VITALS: BP 165/76
[2023-11-14] MEDS: NOVOLOG FLEXPEN-LOW RESISTANCE SC ×4 (00:48→17:29)
[2023-11-14 00:49] LABS: Glucose - Point of Care 92 mg/dl (70-99)
[2023-11-14] MEDS: 0.45%NACL 1000 IV (04:58)
[2023-11-14 06:00] VITALS: BMI 18.0
[2023-11-14 06:11] LABS: Glucose - Point of Care 84 mg/dl (70-99)
--- NOTE | 2023-11-14 06:56 | W.PN.GI.CBS2 ---
Addendum entered and electronically signed by Aquilino Jenkins MD 11/14/23 08:24:
I saw and examined the patient.
The SPEECH SCIENTIST or PA's note was reviewed and I agree with the note.
Comment:
Pt with pulled tube x2, abd pain
PEG replacement done bedside
plan:
tube check
regardless high risk for again reattempt at pulling out tube which risks peritonitis as tract not fully formed (CT was ok tuesday)
speech to reevaluate
Original Note:
Today's Communication / Plan
-
-goodwin replaced with #20 portuguese, 20ml kangaroo tube without difficulty
-will check tube check to confirm placement
-difficult situation as patient pulling at tube make risk of fistula trace not healing, peritonitis etc
-speech following
-agree with palliative care consult
Assessment / Plan
-
78 year old male with a past medical history of TIA/CVA, CEA, prostate CA with prostatectomy, HTN, hyperlipidemia, admitted 10/16/2023 for COVID pneumonia. GI was consulted for PEG placement as patient had been on TPN and with dysphagia and
aspiration risk. PEG was placed on 10/31/[address] Almazan, Dr. Lowry. Patient with ongoing altered mental status and was put in restraints with abdominal binder placed to prevent pulling the PEG, but unfortunately he did pull PEG tube last
evening 11/11/23. Goodwin catheter was reinserted and remains in place now with binder. Patient denies any abdominal pain. He is oriented x2 (person, place) but remains confused and does not recall pulling out the tube. Infectious Disease following
patient; he is currently on IV cefdinir.
IMPRESSION / PLAN:
Status post PEG placement 10/31/23 for dysphagia, aspiration risk and altered mental status - tube pulled out 11/11/23 by patient then again on 11/11
Plan:
-goodwin replaced with #20 portuguese, 20ml kangaroo tube without difficulty
-will check tube check to confirm placement
-difficult situation as patient pulling at tube make risk of fistula trace not healing, peritonitis etc
-speech following
-agree with palliative care consult
Subjective
Subjective
Date of Service: November 14, 2023
NPO, no stools currently tube feeds on hold as tube fell out, currently calm
Objective
Data Reviewed
Laboratory Data:
Laboratory Results
11/09/23 05:08
Laboratory Results
PT 14.5 Sec (11.4-14.6) 10/27/23 08:56
INR 1.12 10/27/23 08:56
Phosphorus 3.7 mg/dl (2.5-4.5) 10/31/23 05:38
Magnesium 2.2 mg/dl (1.6-2.3) 10/31/23 05:38
Total Bilirubin 0.5 mg/dl (0.2-1.3) 11/02/23 05:07
AST 27 U/L (17-59) 11/02/23 05:07
ALT 25 U/L (0-50) 11/02/23 05:07
Alkaline Phosphatase 76 U/L (38-126) 11/02/23 05:07
Vital Signs and I&O:
Vital Signs
Temp Pulse Resp BP Pulse Ox
97.6 F 88 19 165/76 98
11/13/23 23:28 11/13/23 23:28 11/13/23 23:28 11/13/23 23:28 11/13/23 23:28
I&O
11/12/23 11/13/23 11/14/23
06:59 06:59 06:59
Intake Total 0 / 0 900 / 900 1800 / 1800
Output Total 850 / 850 700 / 700 1650 / 1650
Balance -850 / -850 200 / 200 150 / 150
Physical Exam
Physical Exam
HEENT: Anicteric and Moist mucous membranes
Cardiology: Normal Sinus Rhythm
Pulmonary: Clear
GI: Soft, Non Distended and Non Tender (limited exam as patient sleeping quietly )
Extremities: No Edema
Neuro: Other (sleeping quietly )
[2023-11-14 07:05] VITALS: BP 132/65
--- NOTE | 2023-11-14 08:39 | W.PN.HOSP.TC ---
Addendum entered and electronically signed by Júnior Bullard MD 11/14/23 18:01:
Discussed with in person at bedside. Discussed with palliative care who requested one-to-one observation/med sitter. Psychiatry discontinuing risperidone and restarting back Seroquel.
Original Note:
Today's Communication/Plan
-
PEG reinsertion.
Assessment / Plan
Assessment / Plan
General: Acutely and appears chronically ill but no acute distress, confused, oriented to hospital, month, not year.
HEENT: Normocephalic, Atraumatic and Moist Mucous Membranes
Respiratory: Clear to auscultation bilateral; Negative Wheezes, or Rales
Cardiac: Regular Rhythm and S1/S2
GI: Soft, Nontender and Nondistended
Musculoskeletal: No Clubbing, No Cyanosis and No Edema
Neuro: Awake, Alert and oriented today, sitting in the chair, no neurological focality deficits
Psych: Calm, follow simple commands, judgment and insight still impaired but improving
A/P:
Acute toxic metabolic encephalopathy: Remains very confused. Psychiatry assisting with delirium. Remains on restraints.
Brain MRI no acute abnormality
Etiology possible COVID-19 related encephalopathy and delirium with multiple offending factors during this hospital stay.
Off restraints this morning and looks comfortable.
Psychiatry on board and managing antipsychotics. Currently he is on mirtazapine and risperidone as well as low-dose Ativan as needed.
Speech therapy reevaluated with VSE but failed. Continue tube feedings. Unfortunately patient pulled tube x 2. Status post PEG replacement at bedside after CT of the abdomen. Tube check study okay.
Palliative care consulted
Will also have hospice evaluate
Sepsis with bacteremia, Serratia Marcescens Bacteremia-CLABSI/PICC line related versus recurrent aspiration pneumonia:
Stable
Finished course of antibiotics
ID signing off today.
Prediabetes mellitus:
Insulin sliding scale while in the hospital
Hemoglobin A1c 5.8
Dysphagia: Patient again pulled out his feeding tube twice. Status post PEG replacement today at bedside after CT of the abdomen prior. Tube check study okay.
Tolerating PEG feedings prior.
TPN discontinued
Status post PEG on 10/30. Reinserted on 11/13
Speech therapy reeval and failed VSE. Continue TF
Aspiration pneumonia:
Status post treated with course of antibiotics
COVID-19:
Off isolation precautions
Status post treated with 5 days of Paxlovid
Western blot Lyme test came back negative for IgM and positive for IgG.
Hyponatremia -resolved.
Hyperkalemia - resolved.
Acute hypoxic respiratory failure:
Resolved
Urinary retention:
Continue following per urology recommendations due to urethral stricture
Discussed with urology and urology evaluated him today and recommend to continue Ford catheter and plan to do void trial as outpatient in the rehab facility.
Continue Ford catheter
Past medical problems:
Essential hypertension
Dyslipidemia
Prediabetes mellitus
TIA/brain infarcts
PVD with carotid stenosis status post left CEA
Prostate cancer
DVT prophylaxis:
Lovenox 40 mg SQ daily
CODE STATUS -DNR
Anticipated Discharge: > 48 hours
Subjective/Interval History
-
Date of Service: November 14, 2023
Patient seen and examined.
Objective Data
-
Labs:
Laboratory Results
11/14/23
07:38
Sodium Pending
Potassium Pending
Chloride Pending
Carbon Dioxide Pending
BUN Pending
Creatinine Pending
Glucose Pending
Calcium Pending
Total Bilirubin Pending
AST Pending
ALT Pending
Alkaline Phosphatase Pending
Vital Signs:
Vital Signs
Temp Pulse Resp BP Pulse Ox
97.6 F 81 16 132/65 99
11/14/23 07:05 11/14/23 07:05 11/14/23 07:05 11/14/23 07:05 11/14/23 07:05
I&O
11/13/23 11/14/23 11/15/23
06:59 06:59 06:59
Intake Total 900 / 900 1800 / 1800
Output Total 700 / 700 1650 / 1650
Balance 200 / 200 150 / 150
[2023-11-14 08:41] LABS: ALT (SGPT) 60 U/L (0-50); AST (SGOT) 37 U/L (17-59); Albumin 3.1 g/dl (3.5-5.0); Alkaline Phosphatase 100 U/L (38-126); Blood Urea Nitrogen 14 mg/dl (9-20); Calcium 8.9 mg/dl (8.4-10.2); Carbon Dioxide 25 mmol/L (22-30); Chloride 103 mmol/L (98-107); Estimated Creatinine Clearance 71 ml/min; Glucose 76 mg/dl (70-99); Magnesium 1.9 mg/dl (1.6-2.3); Phosphorus 3.5 mg/dl (2.5-4.5); Potassium 4.1 mmol/L (3.5-5.1); Sodium 137 mmol/L (135-145); Total Bilirubin 0.7 mg/dl (0.2-1.3); Total Protein 5.4 g/dl (6.3-8.2); Triglycerides 57 mg/dl (10-149); eGFR > 60.00
[2023-11-14] MEDS: RISPERDAL M-TAB (ORALLY DISINTEGRATING) 0.25 MG PO (09:09)
[2023-11-14] MEDS: MYCOSTATIN ORAL SUSPENSION 5 ML PO ×3 (09:09→21:05)
[2023-11-14] MEDS: PROTONIX IV 40 MG IV ×2 (09:09→21:05)
[2023-11-14] MEDS: NSS (PRESERVATIVE FREE) 10 ML IV ×2 (09:09→21:06)
--- NOTE | 2023-11-14 10:35 | W.PN.UPDATE ---
Update Note
Progress Note Update
tube check shows that tube is in the stomach.
ok to use
hopefully the patient does not pull this out, please continue precautions
will sign off
--- NOTE | 2023-11-14 10:59 | W.PN.ID1 ---
Date of Service
Date of Service: November 14, 2023
Today's Communication
ID will sign off.
Assessment / Plan
# Fever - resolved
# Serratia bacteremia (03/21 set; 11/01/23)
# Recurrent aspiration pneumonia
# Dysphagia; s/p PEG 10/31/23
- Peg pulled / dislodged several times/replaced
- Ucx neg
- Repeat bcx neg to date.
- ?possible source from recent PICC for TPN (discontinued 11/01) vs. possible aspiration
- Completed course of abx on 11/11.
# Urinary retention requiring goodwin
# Persistent encephalopathy
# s/p Symptomatic COVID infection
- Symptom onset 10/14 evening
- s/p 5-day course of Paxlovid
- S/p 10d isolation
ID will sign off.
#Additional Past Medical History:
Mild dementia
Hypertension
Dyslipidemia
TIA
Left cerebellar chronic infarcts
Carotid stenosis s/p Left CEA
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
Prostate cancer status post prostatectomy
Heel, wrist and pelvis repair 1968
����������������������������������������������������������
Chief Complaint
-: Pneumonia and Bacteremia
Vital Signs / Physical Exam
Vital Signs
Vital Signs
Temp Pulse Resp BP Pulse Ox
97.6 F 81 16 132/65 99
11/14/23 07:05 11/14/23 07:05 11/14/23 07:05 11/14/23 07:05 11/14/23 09:00
Physical Exam
Constitutional: No Acute Distress
Pulmonary: Clear (anteriorly)
Gastrointestinal: Soft, Non Tender and Non Distended
Objective Data
Lab Data
Lab Results
11/09/23 05:08
11/14/23 07:38
PT 14.5 Sec (11.4-14.6) 10/27/23 08:56
INR 1.12 10/27/23 08:56
Estimated Creat Clear 71 ml/min 11/14/23 07:38
Total Bilirubin 0.7 mg/dl (0.2-1.3) 11/14/23 07:38
AST 37 U/L (17-59) 11/14/23 07:38
ALT 60 U/L (0-50) H 11/14/23 07:38
Alkaline Phosphatase 100 U/L (38-126) 11/14/23 07:38
Most recent labs reviewed.
Micro Results:
11/01/23 11:22 Blood Culture - Final
Blood/Venous Serratia marcescens
Gram Stain - Final
11/01/23 20:48 Blood Culture - Final
Blood/Venous No Growth - Final Report
11/01/23 20:48 Urine Culture - Final
Urine NO GROWTH
10/18/23 10:33 Blood Culture - Final
Blood/Venous No Growth - Final Report
10/18/23 18:21 Urine Culture - Final
Urine NO GROWTH
10/16/23 12:56 Urine Culture - Final
Urine NO GROWTH
Imaging:
10/22/2023 CXR (portable): Moderate opacification of the right infrahilar region and mid right lower lung field concerning for developing pneumonia. A tiny left pleural effusion is noted. No pneumothorax seen.
10/16/23 CXR: No acute cardiopulmonary process.
10/17/23 Vascular US: Right carotid: Extensive atherosclerotic disease with peak systolic velocity within the proximal ICA measuring 616 cm/s. Elevated end-diastolic velocity and ICA/CCA ratio compatible with a greater than 70% stenosis. Left
carotid: Mild calcified plaque/intimal thickening within the bulb proximal ICA causing less than 50% luminal narrowing.
10/18/23 CXR: There are new areas of airspace disease in both lower lobes, left greater than right. Findings suggest pneumonia.
10/19/23 Brain MRI: No acute intracranial abnormality. Prior small infarcts within the left cerebellar hemisphere, similar in appearance prior. Mucosal thickening with layering secretions in the right maxillary sinus.
11/01/23 CXR: Some hazy right basilar opacification which could represent pneumonitis.
[2023-11-14] MEDS: LOPRESSOR 50 MG TUBE ×2 (11:00→21:06)
[2023-11-14] MEDS: LOW STRENGTH ASPIRIN 81 MG TUBE (11:07)
[2023-11-14] MEDS: NSS (PRESERVATIVE FREE) 0.25 ML IV ×2 (11:07→17:26)
[2023-11-14] MEDS: ATIVAN 0.5 MG IV ×2 (11:08→17:26)
[2023-11-14 11:59] LABS: Glucose - Point of Care 61 mg/dl (70-99)
[2023-11-14] MEDS: DEXTROSE 50% SYRINGE 12.5 GRAMS IV (12:31)
--- NOTE | 2023-11-14 12:49 | CM ---
CM following re: discharge planning.
Reviewed pt's chart.
Hospice consult noted. Family preferred hospice.
A referral to hospice made.
D/C plan: Hospice care with hospice.
CM is available for emotional support.
[2023-11-14 12:57] LABS: Glucose - Point of Care 139 mg/dl (70-99)
--- NOTE | 2023-11-14 13:00 | HOSPNOTE ---
Entered room and introduced myself as hospice nurse. Terese stated she asked to speak to patient advocacy and not hospice. I offered to explain hospice so she would have an understanding of what hospice provides. stated no she was not
interested in hearing about hospice, she would let us know at a later time if she would want to talk to the hospice staff.
[2023-11-14] MEDS: MYCOSTATIN ORAL SUSPENSION PO (13:54)
[2023-11-14 15:05] VITALS: BP 136/61
--- NOTE | 2023-11-14 15:18 | W.CON.PAL ---
Consultation
-
Date/Time Consultation Requested: 11/13/2023 14:00
Date/Time Consultation Performed: 11/14/2023 13:30
Requesting Provider: Dr. Cardenas
Performing Provider: Dr. Mendez
Reason for Consult: Goals of Care Discussion
Primary Diagnosis: Altered Mental status
Consult Requested By: Patient's Physician
Reason for Admission
Illness Course/HPI
Ethan is a 78 y/o male with pmhx of mild cognitive impairment, tia cva, dm2, hld, who was hospitalized 10/15 with COVID, hospital stay has been complicated by aspiration pneumonia, dysphagia s/p peg tube insertion and delerium. Patient pulled out
peg tube twice - last over the weekend. palliative care was consulted to discuss goals of care.
Terese at bedside. She is his medical poa. patient has a daughter from another marriage Waleska Luna wh lives in [place].
At his baseline, Stephen is very active. 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 His cognitive issues are
minimal at this time per - forgetting a doctors appointment etc.
He was doing better during his hospital stay until the weekend with the move to the second floor. Medications have been adjusted by psychiatry. At this time, goals are treatment oriented, and would like to give him more time to recover. She
understands that it may take some time, and to consider what his wishes would be if he did not return to his baseline. She states that he would not want CPR or Intubation, but would be ok with peg tube, goodwin, and treatment of infections.
Functional Status & Support Systems
Current Functional Status:
Currently confused, and unable to follow directions
At baseline is independent of adls and iadls
Emergency Medical Service Manager/Family Support: Spouse Terese
Review of Advanced Directives
Preferences Regarding Resuscitation at End of Life: DNR
Goals of Care Discussion
-
Patient able to participate in discussion at time of visit: No
Illness Severity & Prognosis Discussion
Family's awareness/understanding of illness: Life Threatening/Serious
Patient & family understanding of treatment/care options:
At this time goals are treatment oriented. Would continue adjustment of medications to treat delerium, and nutrition via peg tube
Objective Data
-
Objective Data:
Vital Signs
Temp Pulse Resp BP Pulse Ox
97.6 F 93 16 139/58 99
11/14/23 07:05 11/14/23 11:00 11/14/23 07:05 11/14/23 11:00 11/14/23 11:59
Laboratory Results
11/09/23 05:08
11/14/23 07:38
PT 14.5 Sec (11.4-14.6) 10/27/23 08:56
INR 1.12 10/27/23 08:56
Hemoglobin A1c 5.8 % (4.0-5.6) H 10/17/23 08:59
Total Protein 5.4 g/dl (6.3-8.2) L 11/14/23 07:38
Albumin 3.1 g/dl (3.5-5.0) L 11/14/23 07:38
Urine Color Yellow 11/01/23 20:48
Urine Clarity Clear (Clear) 11/01/23 20:48
Urine pH 6.0 (5.0-9.0) 11/01/23 20:48
Ur Specific [place] 1.025 (<1.030) 11/01/23 20:48
Urine Ketones Negative (Negative) 11/01/23 20:48
Urine Bilirubin Negative (Negative) 11/01/23 20:48
Palliative Performance Scale
Palliative Performance Scale:
PPS Level Ambulation Activity & Evidence of Disease Self Care Intake Conscious Level
100% Full Normal Activity & Work; Full Intake Full
No Evidence of Disease
90% Full Normal Activity & Work; Full Normal Full
Some Evidence of Disease
80% Full Normal Activity with Effort Full Normal or Full
Some Evidence of Disease Reduced
70% Reduced Unable Normal Job/Work Full Normal or Full
Significant Disease Reduced
60% Reduced Unable Hobby/Housework Occasional Normal or Full or Confusion
Significant Disease Assistance Reduced
50% Mainly Sit/Lie Unable to do Any Work Considerable Normal or Full or Confusion
Extensive Disease Assistance Req'd Reduced
40% Mainly in Bed Unable to do Most Activity Mainly Assistance Normal or Full or Drowsy;
Extensive Disease Reduced +/- Confusion
30% Totally Bed Unable to do Any Activity Total Care Normal or Full or Drowsy;
Bound Extensive Disease Reduced +/- Confusion
20% Totally Bed Bound Unable to do Any Activity Total Care Minimal to Full or Drowsy;
Extensive Disease Sips +/- Confusion
10% Totally Bed Bound Unable to do Any Activity Total Care Mouth Care Drowsy or Coma;
Extensive Disease Only +/- Confusion
0%
PPS Score Level: 40
Physical Exam
-
General: Conversant
Neuro: Awake
Psych: Calm and Confused
Assessment / Plan
-
Assessment/Plan:
Goals of care are treatment oriented at this time, not ready to consider transition to comfort care.
Palliative care will follow and provide support to spouse, and revisit goals if improvements are not seen.
Care Reviewed
Data Reviewed
Chest X ray: Report Reviewed
Radiology procedure: Report Reviewed
Medical Tests: I reviewed
Time
Start Date: 11/14/23
Start Time: 13:30
Stop Date: 11/14/23
Stop Time: 15:24
Time Spent:
60 mins total time
[2023-11-14 15:28] LABS: Glucose - Point of Care 85 mg/dl (70-99)
--- NOTE | 2023-11-14 15:53 | W.PN.UPDATE ---
Update Note
Progress Note Update
Pt seen, reviewed with and nursing staff. Pt was progressing, then had a significant turn for the worse when transferred to [address] [place] [address] 11/10. Pt pulled out his PEG tube, was given Risperidone ODT due to no available route
for Seroquel.
reports pt had parksoninan side effects earlier this stay when tried on Risperidone for agitation. Pt was improving on Seroquel prior the past few days. Pt currently in soft restraints and mitts. Pt partially awake, not making eye contact,
speaking incoherently, mildly restless, not acutely agitated.
Imp: Delirium, with agitation worsened after transfer to [address] [place] [address]. Pt had been slowly and steadily improving with less agitation on Seroquel; had previous side effects on Risperidone
Rec: Switch back to Seroquel now that PEG tube is back in place and tabs can be crushed and given via tube. Will stop Risperidone due to previous side effects. Continue Ativan IV prn. Will continue Remeron for now, consider stopping
will follow
[2023-11-14] MEDS: RISPERDAL M-TAB (ORALLY DISINTEGRATING) PO (16:11)
[2023-11-14] MEDS: SEROQUEL 25 MG TUBE ×2 (16:26→21:09)
[2023-11-14] MEDS: LOVENOX 40 MG SC (17:25)
[2023-11-14 17:30] LABS: Glucose - Point of Care 76 mg/dl (70-99)
[2023-11-14] MEDS: REMERON 7.5 MG TUBE (21:06)
[2023-11-14 23:20] VITALS: BP 157/62
[2023-11-15 00:16] LABS: Glucose - Point of Care 105 mg/dl (70-99)
[2023-11-15] MEDS: NOVOLOG FLEXPEN-LOW RESISTANCE SC ×2 (00:37→13:16)
[2023-11-15] MEDS: ATIVAN 0.5 MG IV (04:52)
[2023-11-15] MEDS: NSS (PRESERVATIVE FREE) 0.25 ML IV (04:52)
[2023-11-15 06:35] LABS: Glucose - Point of Care 158 mg/dl (70-99)
[2023-11-15] MEDS: NOVOLOG FLEXPEN-LOW RESISTANCE 1 UNITS SC (06:35)
[2023-11-15 06:50] VITALS: BMI 17.8
[2023-11-15 07:14] LABS: Hematocrit 34.7 % (39.0-52.0); Hemoglobin 11.9 g/dL (13.0-18.0); Mean Corp Hgb Conc. 34.3 g/dL (33.0-37.0); Mean Corpuscular Hgb 32.8 pg (27.0-31.0); Mean Corpuscular Volume 95.6 fL (80.0-94.0); Mean Platelet Volume 10.6 fL (7.4-10.4); Platelet Count 300 10^3/uL (130-400); Red Blood Cell Count 3.63 10^6/uL (4.70-6.10); Red Cell Dist. Width 13.6 % (11.5-14.5); White Blood Cell Count 8.8 10^3/uL (4.8-10.8)
[2023-11-15 07:37] LABS: Blood Urea Nitrogen 15 mg/dl (9-20); Calcium 8.8 mg/dl (8.4-10.2); Carbon Dioxide 28 mmol/L (22-30); Chloride 100 mmol/L (98-107); Estimated Creatinine Clearance 61 ml/min; Glucose 164 mg/dl (70-99); Potassium 4.2 mmol/L (3.5-5.1); Sodium 137 mmol/L (135-145); eGFR > 60.00
[2023-11-15 08:00] VITALS: BP 145/75
--- NOTE | 2023-11-15 08:38 | W.PN.HOSP.TC ---
Today's Communication/Plan
-
Cont current mgmt.
Assessment / Plan
Assessment / Plan
General: Acutely and appears chronically ill but no acute distress, confused, oriented to hospital, month, not year.
HEENT: Normocephalic, Atraumatic and Moist Mucous Membranes
Respiratory: Clear to auscultation bilateral; Negative Wheezes, or Rales
Cardiac: Regular Rhythm and S1/S2
GI: Soft, Nontender and Nondistended
Musculoskeletal: No Clubbing, No Cyanosis and No Edema
Neuro: Awake, Alert and oriented today, sitting in the chair, no neurological focality deficits
Psych: Calm, follow simple commands, judgment and insight still impaired but improving
A/P:
Acute toxic metabolic encephalopathy: Remains very confused. Psychiatry assisting with delirium. Remains on restraints.
Brain MRI no acute abnormality
Etiology possible COVID-19 related encephalopathy and delirium with multiple offending factors during this hospital stay.
Off restraints this morning and looks comfortable.
Psychiatry on board and managing antipsychotics. Psychiatry discontinued risperidone and restarted back Seroquel. Remains on Mirtazapine and low dose Ativan as needed.
Speech therapy reevaluated with VSE but failed. Continue tube feedings. Unfortunately patient pulled tube x 2. Status post PEG replacement at bedside. Tube check study okay.
Palliative care and hospice consulted and appreciated input but is not ready to transition to Hospice.
Discussed with over the phone.
Sepsis with bacteremia, Serratia Marcescens Bacteremia-CLABSI/PICC line related versus recurrent aspiration pneumonia:
Stable
Finished course of antibiotics
ID signed off.
Prediabetes mellitus:
Insulin sliding scale while in the hospital
Hemoglobin A1c 5.8
Dysphagia: Patient again pulled out his feeding tube twice. Status post PEG replacement today at bedside after CT of the abdomen prior. Tube check study okay.
Tolerating PEG feedings prior.
TPN discontinued
Status post PEG on 10/30. Reinserted on 11/13
Speech therapy reeval and failed VSE. Continue TF
Aspiration pneumonia:
Status post treated with course of antibiotics
COVID-19:
Off isolation precautions
Status post treated with 5 days of Paxlovid
Western blot Lyme test came back negative for IgM and positive for IgG.
Hyponatremia -resolved.
Hyperkalemia - resolved.
Acute hypoxic respiratory failure:
Resolved
Urinary retention:
Continue following per urology recommendations due to urethral stricture
Discussed with urology and urology evaluated him today and recommend to continue Ford catheter and plan to do void trial as outpatient in the rehab facility.
Continue Ford catheter
Past medical problems:
Essential hypertension
Dyslipidemia
Prediabetes mellitus
TIA/brain infarcts
PVD with carotid stenosis status post left CEA
Prostate cancer
DVT prophylaxis:
Lovenox 40 mg SQ daily
CODE STATUS -DNR
Anticipated Discharge: > 48 hours
Subjective/Interval History
-
Date of Service: November 15, 2023
Patient agitated earlier and received some Ativan and now looks sedated. Afebrile.
Objective Data
-
Labs:
Laboratory Results
11/15/23
06:16
WBC 8.8
Hgb 11.9 L
Hct 34.7 L
Plt Count 300
Sodium 137
Potassium 4.2
Chloride 100
Carbon Dioxide 28
BUN 15
Creatinine 0.7
Glucose 164 H
Calcium 8.8
Vital Signs:
Vital Signs
Temp Pulse Resp BP Pulse Ox
97.8 F 92 18 145/75 99
11/15/23 08:00 11/15/23 08:00 11/15/23 08:00 11/15/23 08:00 11/15/23 08:00
I&O
11/14/23 11/15/23 11/16/23
06:59 06:59 06:59
Intake Total 1800 / 1800 680 / 680
Output Total 1650 / 1650 1400 / 1400
Balance 150 / 150 -720 / -720
[2023-11-15] MEDS: LOPRESSOR 50 MG TUBE ×2 (09:03→19:57)
[2023-11-15] MEDS: LOW STRENGTH ASPIRIN 81 MG TUBE (09:03)
[2023-11-15] MEDS: PROTONIX IV 40 MG IV ×2 (09:03→19:57)
[2023-11-15] MEDS: NSS (PRESERVATIVE FREE) 10 ML IV ×2 (09:03→19:57)
[2023-11-15] MEDS: MYCOSTATIN ORAL SUSPENSION 5 ML PO ×4 (09:04→22:37)
[2023-11-15] MEDS: SEROQUEL 25 MG TUBE ×3 (09:04→22:37)
--- NOTE | 2023-11-15 10:21 | W.PN.UPDATE ---
Update Note
Progress Note Update
Patient seen at bedside with 1:1 present, chart reviewed, discussed with staff. Mr. Wallace remains sedate and in restraints. Reportedly agitated early this AM and received Ativan. Seen by Palliative Care but not ready to make this transition
just yet. He appears to be resting comfortably at the moment.
Impression/Recommendations: Delirium, with agitation - Seroquel reinitiated now that tube is back in place. Side effects reported with the use of Risperidone and as such, has been discontinued. Continue Ativan IV PRN.
[2023-11-15 13:17] LABS: Glucose - Point of Care 133 mg/dl (70-99)
--- NOTE | 2023-11-15 15:33 | CM ---
CM following re: discharge planning.
Reviewed pt's chart. Per chart review, pt remains in soft restraints, remains sedated, agitated. Psychiatry following to adjust psychotropic medications. Peg tube feeding restarted yesterday, continue supportive care. Palliative care following.
Per security incident handler, pt's spouse is not interested in hospice care.
D/C plan: uncertain at this time and will depend on pt's progress.
CM will follow with discharge plan updates as hospitalization progresses
[2023-11-15 16:30] VITALS: BP 155/74
[2023-11-15] MEDS: LOVENOX 40 MG SC (17:31)
[2023-11-15 18:07] LABS: Glucose - Point of Care 216 mg/dl (70-99)
[2023-11-15] MEDS: NOVOLOG FLEXPEN-LOW RESISTANCE 2 UNITS SC (18:08)
[2023-11-15] MEDS: REMERON 7.5 MG TUBE (22:35)
[2023-11-15 23:07] VITALS: BP 155/76
[2023-11-16 00:42] LABS: Glucose - Point of Care 144 mg/dl (70-99)
[2023-11-16] MEDS: NOVOLOG FLEXPEN-LOW RESISTANCE SC ×2 (01:10→06:51)
[2023-11-16] MEDS: NSS (PRESERVATIVE FREE) 0.25 ML IV (03:31)
[2023-11-16] MEDS: ATIVAN 0.5 MG IV (03:31)
--- NOTE | 2023-11-16 05:44 | W.PN.UPDATE ---
Update Note
Progress Note Update
Patient with productive cough, not able to clear secretion. Does not seems that he in pain or SOB but continuously coughing. SPO2 99% RA, afebrile. Lung sound is coarse on exam.
Chest x-ray ordered
[2023-11-16 05:51] VITALS: BMI 18.1
[2023-11-16] MEDS: TRANSDERM-SCOP 1 PATCH TRANSDERM (06:13)
[2023-11-16 06:47] LABS: Glucose - Point of Care 138 mg/dl (70-99)
[2023-11-16 07:10] VITALS: BP 124/76
[2023-11-16] MEDS: TYLENOL 650 MG TUBE (08:16)
[2023-11-16] MEDS: PROTONIX IV 40 MG IV ×2 (08:16→21:05)
[2023-11-16] MEDS: LOW STRENGTH ASPIRIN 81 MG TUBE (08:16)
[2023-11-16] MEDS: NSS (PRESERVATIVE FREE) 10 ML IV ×2 (08:16→21:06)
[2023-11-16] MEDS: MYCOSTATIN ORAL SUSPENSION 5 ML PO ×3 (08:16→21:38)
[2023-11-16] MEDS: LOPRESSOR 50 MG TUBE ×2 (08:16→21:06)
[2023-11-16] MEDS: SEROQUEL 25 MG TUBE (08:16)
[2023-11-16 09:05] LABS: % Basophils 0.2 % (0-2); % Eosinophils 0.4 % (0-6); % Immature Granulocytes 0.4 % (0-0.5); % Lymphocytes 14.8 % (20.5-51.1); % Monocytes 9.9 % (1.7-9.3); % Neutrophils 74.3 % (42.2-75.2); Absolute Lymphocytes 1.4 10^3/uL (1.2-3.4); Absolute Monocytes 0.9 10^3/uL (0.1-0.6); Hematocrit 34.8 % (39.0-52.0); Hemoglobin 11.9 g/dL (13.0-18.0); Mean Corp Hgb Conc. 34.2 g/dL (33.0-37.0); Mean Corpuscular Hgb 32.8 pg (27.0-31.0); Mean Corpuscular Volume 95.9 fL (80.0-94.0); Mean Platelet Volume 10.3 fL (7.4-10.4); Nucleated Red Blood Cells % 0 % (-); Platelet Count 307 10^3/uL (130-400); Red Blood Cell Count 3.63 10^6/uL (4.70-6.10); Red Cell Dist. Width 13.3 % (11.5-14.5); White Blood Cell Count 9.4 10^3/uL (4.8-10.8)
[2023-11-16 09:23] LABS: NT-proBNP 907 pg/ml
[2023-11-16 09:31] LABS: ALT (SGPT) 36 U/L (0-50); AST (SGOT) 25 U/L (17-59); Albumin 3.1 g/dl (3.5-5.0); Alkaline Phosphatase 103 U/L (38-126); Blood Urea Nitrogen 15 mg/dl (9-20); Calcium 8.6 mg/dl (8.4-10.2); Carbon Dioxide 29 mmol/L (22-30); Chloride 98 mmol/L (98-107); Estimated Creatinine Clearance 72 ml/min; Glucose 173 mg/dl (70-99); Potassium 4.3 mmol/L (3.5-5.1); Sodium 136 mmol/L (135-145); Total Bilirubin 0.6 mg/dl (0.2-1.3); Total Protein 5.5 g/dl (6.3-8.2); eGFR > 60.00
[2023-11-16 09:47] LABS: Procalcitonin < 0.05 ng/ml (0.0-0.25)
[2023-11-16] MEDS: ZOSYN 50 IV ×3 (09:47→21:38)
--- NOTE | 2023-11-16 09:52 | PTCARENOTE ---
Patient lethargic this AM with wet, gurgly voice quality, frequent moist cough and coarse lung sounds; patient suctioned for copious thick yellow oral secretions. Axillary temp 101.3F. Patient administered PRN tylenol for fever, MD made aware. Blood
cx, labs, portable CXR and abd xray ordered per MD. Tube feedings put on hold. Patient in 4 point soft limb restraints and B/L wrist mitts, medsitter in place.
--- NOTE | 2023-11-16 11:12 | PTCARENOTE ---
Patient's rectal temp 101.6F. Patient continuing with weak wet, gurgly cough, thick yellow secretions suctioned from mouth. MD made aware, cooling blanket, vest therapy, and deep suction ordered per MD. Respiratory therapist made aware.
--- NOTE | 2023-11-16 11:30 | W.PN.HOSP.TC ---
Today's Communication/Plan
-
IV fluids. IV antibiotics. Chest x-ray abdominal x-ray blood cultures and labs
Assessment / Plan
Assessment / Plan
General: Acutely ill
HEENT: Normocephalic, Atraumatic and Moist Mucous Membranes
Respiratory: Bilateral coarse crackles, few rhonchi, no wheezes.
Cardiac: Regular Rhythm and S1/S2, tachycardic.
GI: Soft, Nontender and Nondistended
Musculoskeletal: No Clubbing, No Cyanosis and No Edema
Neuro: Lethargic today and minimally responsive
Psych: Lack of judgment and insight.
A/P:
Recurrence of fevers with septic picture tachycardic, tachypneic, worsening respiratory distress:
Likely a recurrent event aspiration event
Repeat blood cultures x2, chest x-ray, x-ray of the abdomen, lactic acid, procalcitonin, and CRP, and other routine labs.
Start empirically on IV Zosyn
Hold feedings and gentle IV fluids and if improvement can restart later tonight
DC scopolamine patch and avoid any medications that interfere with mentation
Exercise caution with antipsychotics-will defer to psychiatry in terms of management of this medications.
Discussed with at bedside on 11/15. Discussed about goals of care and would like to continue active treatment. Appears to be a hospice candidate but will need to reevaluate.
Prognosis guarded
Acute hypoxic respiratory insufficiency:
Start vest therapy
Deep suction by respiratory therapy
Oxygen as needed
Acute toxic metabolic encephalopathy: Remains very confused. Psychiatry assisting with delirium. Remains on restraints.
Brain MRI no acute abnormality
Etiology possible COVID-19 related encephalopathy and delirium with multiple offending factors during this hospital stay.
Off restraints this morning and looks comfortable.
Psychiatry on board and managing antipsychotics. Psychiatry discontinued risperidone and restarted back Seroquel. Remains on Mirtazapine and low dose Ativan as needed.
Speech therapy reevaluated with VSE but failed. Continue tube feedings. Unfortunately patient pulled tube x 2. Status post PEG replacement at bedside. Tube check study okay.
Palliative care and hospice consulted and appreciated input but is not ready to transition to Hospice.
Discussed with over the phone.
Hyperglycemia:
Insulin sliding scale & check blood sugars
Sepsis with bacteremia, Serratia Marcescens Bacteremia-CLABSI/PICC line related versus recurrent aspiration pneumonia:
Stable
Finished course of antibiotics
ID signed off.
Prediabetes mellitus:
Insulin sliding scale while in the hospital
Hemoglobin A1c 5.8
Dysphagia: Patient again pulled out his feeding tube twice. Status post PEG replacement today at bedside after CT of the abdomen prior. Tube check study okay.
Tolerating PEG feedings prior.
TPN discontinued
Status post PEG on 10/30. Reinserted on 11/13
Speech therapy reeval and failed VSE. Continue TF
Aspiration pneumonia:
Status post treated with course of antibiotics
COVID-19:
Off isolation precautions
Status post treated with 5 days of Paxlovid
Western blot Lyme test came back negative for IgM and positive for IgG.
Hyponatremia -resolved.
Hyperkalemia - resolved.
Acute hypoxic respiratory failure:
Resolved
Urinary retention:
Continue following per urology recommendations due to urethral stricture
Discussed with urology and urology evaluated him today and recommend to continue Ford catheter and plan to do void trial as outpatient in the rehab facility.
Continue Ford catheter
Past medical problems:
Essential hypertension
Dyslipidemia
Prediabetes mellitus
TIA/brain infarcts
PVD with carotid stenosis status post left CEA
Prostate cancer
DVT prophylaxis:
Lovenox 40 mg SQ daily
CODE STATUS -DNR
Total Critical Care Time 35 minutes. I was immediately available to the patient and staff. I personally examined, reviewed labs, diagnostic images/reports, interpretations, treatment plans, discussed patient care with other providers and family
or caregivers (if patient is unable to make decisions), entered orders as appropriate and documented the medical record.
Anticipated Discharge: > 48 hours
Subjective/Interval History
-
Date of Service: November 16, 2023
Patient with worsening mental status today and fever. Also respiratory status worsened.
Objective Data
-
Labs:
Laboratory Results
11/16/23
08:47
WBC 9.4
Hgb 11.9 L
Hct 34.8 L
Plt Count 307
Sodium 136
Potassium 4.3
Chloride 98
Carbon Dioxide 29
BUN 15
Creatinine 0.6 L
Glucose 173 H
Calcium 8.6
Total Bilirubin 0.6
AST 25
ALT 36
Alkaline Phosphatase 103
Vital Signs:
Vital Signs
Temp Pulse Resp BP Pulse Ox
101.6 F H 118 20 124/76 100
11/16/23 11:14 11/16/23 08:16 11/16/23 07:10 11/16/23 08:16 11/16/23 10:21
I&O
11/15/23 11/16/23 11/17/23
06:59 06:59 06:59
Intake Total 680 / 680 950 / 950
Output Total 1400 / 1400 850 / 850
Balance -720 / -720 100 / 100
[2023-11-16] MEDS: D5/0.9% SODIUM CHLORIDE 1000 IV (11:43)
[2023-11-16 11:54] LABS: Glucose - Point of Care 154 mg/dl (70-99)
[2023-11-16] MEDS: NOVOLOG FLEXPEN-LOW RESISTANCE 1 UNITS SC ×2 (11:54→17:25)
[2023-11-16] MEDS: MYCOSTATIN ORAL SUSPENSION PO ×2 (12:02→14:26)
--- NOTE | 2023-11-16 12:05 | CON.MD ---
Addendum entered and electronically signed by Kelly Escobar MD 11/16/23 12:11:
note scopolamine was ordered by attending for secretions. i do have some concern that this may not help w confusion given the anticholinergic effects.
Original Note:
Consultation - Medical
-
patient seen chart reviewed. discussed w nursing /respiratory. the patient regressed over weekend. he pulled out feeding tube which has now been replaced. he is currently febrile rectal temp 101+. he is coughing and copious secretions.
respiratory needing to suction. when i saw him he was calm. i am concerned that seroquel will further compromise him vis a vis sedation. will change seroquel to prn only. palliative care consult was done although family is not there in terms of
palliative/hospice care. unfortunately given my experience w patient last week (see on tuesday) he has become more encephalopathic. will follow
--- NOTE | 2023-11-16 13:33 | W.PN.UPDATE ---
Update Note
Progress Note Update
Noted Scopolamine ordered by rn shift mgr this morning. Not ordered by me for sure. Will d/c to avoid worsening mentation. Also noticed psych changed dose of Seroquel- would exercise caution on antipsychotics with his mental status.
--- NOTE | 2023-11-16 14:05 | PTCARENOTE ---
Cooling blanket applied at 1145 for rectal temp 101.6F, turned off one hour later at 1245 for rectal temp of 99.8F. IVF infusing through L FA, tube feeds continue to be on hold. Patient deep suctioned by respiratory therapist. and visitor at
bedside, updated on plan of care.
--- NOTE | 2023-11-16 15:11 | CM ---
Chart reviewed.
patient seen bedside, in room.
Spouse aware of CM availability for d/c needs.
Patient febrile today, continues on IV anbx.
Tube feeds on hold.
Spouse refusing hospice care at this time.
Plan: TBD based on progress.
[2023-11-16 15:38] VITALS: BP 166/66
--- NOTE | 2023-11-16 15:39 | PTCARENOTE ---
Patient tremulous and shaky in bed, continuing with weak wet gurgly cough. Patient orally suctioned at bedside for thick yellow secretions, ax temp 102.1F, rectal 101.6F via rectal probe. Patient placed back on cooling blanket. Patient's automatic
BP 166/66 RUE HR 107, repeat 168/68 on LUE; patient with B/L arm tremors during BP measurement. MD made aware of BP and temp, stated to hold on giving PRN hydralazine at this time.
[2023-11-16] MEDS: OFIRMEV 100 IV (16:16)
--- NOTE | 2023-11-16 16:41 | W.PN.UPDATE ---
Update Note
Progress Note Update
met with at bedside. give me her perspective on events of the weekend. she does feel he was tf prematurely from im[facility]. she said she has heard two versions of how his peg tube was pulled out. one invovled him tugging the other that he just
moved in the bed and it was pulled out inadvertently. his fever is up this afternoon although he appears more restful than he had seemed this am when i saw him . discussed the changes i had made in his meds. he certainly does not need seroquel at
this moment as he is resting peacefully. felt over weekend there was a time when he was so agitated he should have gotten ativan . she said she was told by nsg that they did not feel comfortable giving it. to my knowledge ativan has never
made him worse when given for agitation and it has seemed to help.
[2023-11-16] MEDS: LOVENOX 40 MG SC (17:25)
[2023-11-16 17:26] LABS: Glucose - Point of Care 161 mg/dl (70-99)
[2023-11-16] MEDS: REMERON 7.5 MG TUBE (21:38)
[2023-11-16] MEDS: D5/0.9% SODIUM CHLORIDE IV (23:24)
[2023-11-16 23:41] VITALS: BP 134/61
[2023-11-17 00:23] LABS: Glucose - Point of Care 129 mg/dl (70-99)
[2023-11-17] MEDS: NOVOLOG FLEXPEN-LOW RESISTANCE SC ×4 (00:43→17:46)
[2023-11-17] MEDS: ATIVAN 0.5 MG IV ×2 (00:49→16:14)
[2023-11-17] MEDS: NSS (PRESERVATIVE FREE) 0.25 ML IV ×2 (00:50→16:15)
[2023-11-17] MEDS: TYLENOL ORAL SOLUTION 650 MG TUBE (01:03)
[2023-11-17] MEDS: ZOSYN 50 IV ×4 (03:18→22:00)
[2023-11-17 06:00] VITALS: BMI 18.0
[2023-11-17 06:21] LABS: Glucose - Point of Care 128 mg/dl (70-99)
[2023-11-17 07:00] LABS: % Basophils 0.3 % (0-2); % Eosinophils 0.2 % (0-6); % Immature Granulocytes 0.4 % (0-0.5); % Lymphocytes 11.5 % (20.5-51.1); % Monocytes 6.3 % (1.7-9.3); % Neutrophils 81.3 % (42.2-75.2); Absolute Immature Granulocytes 0.1 10^3/uL (0-0.05); Absolute Lymphocytes 1.7 10^3/uL (1.2-3.4); Absolute Monocytes 0.9 10^3/uL (0.1-0.6); Absolute Neutrophils 11.7 10^3/uL (1.4-6.5); Hematocrit 32.6 % (39.0-52.0); Mean Corp Hgb Conc. 33.7 g/dL (33.0-37.0); Mean Corpuscular Hgb 32.7 pg (27.0-31.0); Mean Platelet Volume 10.7 fL (7.4-10.4); Nucleated Red Blood Cells % 0 % (-); Platelet Count 253 10^3/uL (130-400); Red Blood Cell Count 3.36 10^6/uL (4.70-6.10); Red Cell Dist. Width 13.4 % (11.5-14.5); White Blood Cell Count 14.4 10^3/uL (4.8-10.8)
[2023-11-17 07:05] VITALS: BP 138/45
[2023-11-17 07:37] LABS: Blood Urea Nitrogen 15 mg/dl (9-20); Calcium 8.7 mg/dl (8.4-10.2); Carbon Dioxide 31 mmol/L (22-30); Chloride 99 mmol/L (98-107); Estimated Creatinine Clearance 61 ml/min; Glucose 122 mg/dl (70-99); Sodium 138 mmol/L (135-145); eGFR > 60.00
[2023-11-17] MEDS: MYCOSTATIN ORAL SUSPENSION 5 ML PO ×4 (07:38→22:00)
[2023-11-17] MEDS: NSS (PRESERVATIVE FREE) 10 ML IV ×2 (07:38→20:29)
[2023-11-17] MEDS: PROTONIX IV 40 MG IV ×2 (07:39→20:30)
[2023-11-17] MEDS: SEROQUEL 25 MG TUBE ×2 (07:39→20:46)
[2023-11-17] MEDS: LOPRESSOR 50 MG TUBE ×2 (07:39→20:31)
[2023-11-17] MEDS: LOW STRENGTH ASPIRIN 81 MG TUBE (07:39)
--- NOTE | 2023-11-17 08:33 | W.PN.HOSP.TC ---
Today's Communication/Plan
-
IV antibiotics. Vest therapy.
Assessment / Plan
Assessment / Plan
General: Acutely ill
HEENT: Normocephalic, Atraumatic and Dry Mucous Membranes
Respiratory: Bilateral coarse rhonchi, no crackles, no wheezes.
Cardiac: Regular Rhythm and S1/S2, less tachycardic.
GI: Soft, Nontender and Nondistended
Musculoskeletal: No Clubbing, No Cyanosis and No Edema
Neuro: Lethargic alternating with restless episodes intermittently.
Psych: Lack of judgment and insight.
A/P:
Recurrence of fevers with septic picture tachycardic, tachypneic, worsening respiratory distress:
Likely a recurrent event aspiration event
WBC 14.4 today likely reactive of infectious process started yesterday on 11/15
Continue IV antibiotics, Zosyn
Follow-up cultures
Received some Seroquel from prn doses
Reviewed palliative care follow-up today
Discussed with supervisor stripping today 11/16
Discussed with friend at bedside today 11/16
Discussed with psychiatry today 11/16
Discussed with attending RN today 11/16
Will discuss with later
Prognosis guarded
Prior to today:
Repeat blood cultures x2, chest x-ray, x-ray of the abdomen, lactic acid, procalcitonin, and CRP, and other routine labs.
Start empirically on IV Zosyn
Hold feedings and gentle IV fluids and if improvement can restart later tonight
DC scopolamine patch and avoid any medications that interfere with mentation
Exercise caution with antipsychotics-will defer to psychiatry in terms of management of this medications.
Discussed with at bedside on 11/15. Discussed about goals of care and would like to continue active treatment. Appears to be a hospice candidate but will need to reevaluate.
Prognosis guarded
Acute hypoxic respiratory insufficiency:
Started vest therapy and working well
Deep suction by respiratory therapy
Oxygen as needed
Acute toxic metabolic encephalopathy: Remains very confused. Psychiatry assisting with delirium. Remains on restraints.
Brain MRI no acute abnormality
Etiology possible COVID-19 related encephalopathy and delirium with multiple offending factors during this hospital stay.
Off restraints this morning and looks comfortable.
Psychiatry on board and managing antipsychotics. Psychiatry discontinued risperidone and restarted back Seroquel. Remains on Mirtazapine and low dose Ativan as needed.
Speech therapy reevaluated with VSE but failed. Continue tube feedings. Unfortunately patient pulled tube x 2. Status post PEG replacement at bedside. Tube check study okay.
Palliative care and hospice consulted and appreciated input but is not ready to transition to Hospice.
Discussed with over the phone.
Hyperglycemia:
Insulin sliding scale & check blood sugars
Sepsis with bacteremia, Serratia Marcescens Bacteremia-CLABSI/PICC line related versus recurrent aspiration pneumonia:
Stable
Finished course of antibiotics
ID signed off.
Prediabetes mellitus:
Insulin sliding scale while in the hospital
Hemoglobin A1c 5.8
Dysphagia: Patient again pulled out his feeding tube twice. Status post PEG replacement today at bedside after CT of the abdomen prior. Tube check study okay.
Tolerating PEG feedings prior.
TPN discontinued
Status post PEG on 10/30. Reinserted on 11/13
Speech therapy reeval and failed VSE. Continue TF
Aspiration pneumonia:
Status post treated with course of antibiotics
COVID-19:
Off isolation precautions
Status post treated with 5 days of Paxlovid
Western blot Lyme test came back negative for IgM and positive for IgG.
Hyponatremia -resolved.
Hyperkalemia - resolved.
Acute hypoxic respiratory failure:
Resolved
Urinary retention:
Continue following per urology recommendations due to urethral stricture
Discussed with urology and urology evaluated him today and recommend to continue Ford catheter and plan to do void trial as outpatient in the rehab facility.
Continue Ford catheter
Past medical problems:
Essential hypertension
Dyslipidemia
Prediabetes mellitus
TIA/brain infarcts
PVD with carotid stenosis status post left CEA
Prostate cancer
DVT prophylaxis:
Lovenox 40 mg SQ daily
CODE STATUS -DNR
Total time spent on today's encounter was 52 minutes which included time spent in counseling the patient/family regarding diagnosis and treatment plan as listed above, goals of care, and symptom management. Case was discussed with nursing staff,
specialists, and care coordinators/case management. All labs and imaging personally reviewed by me. Remainder the time spent in detailed review of previous records, lab data, imaging, and other medical provider documentation.
Anticipated Discharge: > 48 hours
Subjective/Interval History
-
Date of Service: November 17, 2023
Patient seen and examined at bedside. Tmax 101.1 Fahrenheit earlier this morning. Sleepy but gets restless easily at minimal stimulus.
Objective Data
-
Labs:
Laboratory Results
11/17/23
06:05
WBC 14.4 H
Hgb 11.0 L
Hct 32.6 L
Plt Count 253
Sodium 138
Potassium 4.0
Chloride 99
Carbon Dioxide 31 H
BUN 15
Creatinine 0.7
Glucose 122 H
Calcium 8.7
Vital Signs:
Vital Signs
Temp Pulse Resp BP Pulse Ox
98.6 F 72 16 138/45 98
11/17/23 07:05 11/17/23 07:39 11/17/23 07:05 11/17/23 07:39 11/17/23 07:05
I&O
11/16/23 11/17/23 11/18/23
06:59 06:59 06:59
Intake Total 950 / 950 1043 / 1043
Output Total 850 / 850 750 / 750
Balance 100 / 100 293 / 293
--- NOTE | 2023-11-17 11:01 | W.PN.PAL2 ---
Today's Communication
-
See assessment and plan.
hospital chart reviewed: started on antibiotics for suspected infection, elevated WBC, fevers, thick yellow phlegm.
Patient sedated/sleepy at time of visit, required prn seroquel for tube care earlier today. no longer on scheduled seroquel.
Plan reviewed with , Goals currently remain treatment oriented, see if improvement in mentation with treatment of infection
Assessment / Plan
-
Assessment/Plan:
Goals of care reviewed with Terese over the phone.
Goals remain treatment oriented at this time, however, she recognizes that the new pneumonia is now a setback. if his condition persists in this way, , he would not have much quality of life and would like to revisit goals of care/hospice discussion
in the future. She would like to give antibitoics a good try first though. She is planning on asking his daughter Waleska to come visit, she lives in [place]
Medications for agitation managed by psychiatry.
Reason for Admission
Illness Course/HPI
Ethan is a 78 y/o male with pmhx of mild cognitive impairment, tia cva, dm2, hld, who was hospitalized 10/15 with COVID, hospital stay has been complicated by aspiration pneumonia, dysphagia s/p peg tube insertion and delerium. Patient pulled out
peg tube twice - last over the weekend. palliative care was consulted to discuss goals of care. At his baseline, Stephen is very active. 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 His cognitive issues are minimal at this time per - forgetting a doctors appointment etc.
He was doing better during his hospital stay until the weekend with the move to the second floor. Medications have been adjusted by psychiatry. At this time, goals are treatment oriented, and would like to give him more time to recover. She
understands that it may take some time, and to consider what his wishes would be if he did not return to his baseline. She states that he would not want CPR or Intubation, but would be ok with peg tube, goodwin, and treatment of infections.
Functional Status & Support Systems
Current Functional Status:
Currently confused, and unable to follow directions
At baseline is independent of adls and iadls
Master Cook/Family Support: Spouse Terese
Review of Advanced Directives
Advanced Care Documentation Status: Complete
Preferences Regarding Resuscitation at End of Life: DNR
Pain & Symptom Assessment
Patient Symptoms
Patient Symptoms: Other (sleepy, unable to provide)
Objective Data
-
Objective Data:
Vital Signs
Temp Pulse Resp BP Pulse Ox
98.6 F 72 16 138/45 98
11/17/23 07:05 11/17/23 07:39 11/17/23 07:05 11/17/23 07:39 11/17/23 09:39
Laboratory Results
11/17/23 06:05
11/17/23 06:05
PT 14.5 Sec (11.4-14.6) 10/27/23 08:56
INR 1.12 10/27/23 08:56
Hemoglobin A1c 5.8 % (4.0-5.6) H 10/17/23 08:59
Total Protein 5.5 g/dl (6.3-8.2) L 11/16/23 08:47
Albumin 3.1 g/dl (3.5-5.0) L 11/16/23 08:47
Urine Color Yellow 11/01/23 20:48
Urine Clarity Clear (Clear) 11/01/23 20:48
Urine pH 6.0 (5.0-9.0) 11/01/23 20:48
Ur Specific [place] 1.025 (<1.030) 11/01/23 20:48
Urine Ketones Negative (Negative) 11/01/23 20:48
Urine Bilirubin Negative (Negative) 11/01/23 20:48
Palliative Performance Scale
Palliative Performance Scale:
PPS Level Ambulation Activity & Evidence of Disease Self Care Intake Conscious Level
100% Full Normal Activity & Work; Full Intake Full
No Evidence of Disease
90% Full Normal Activity & Work; Full Normal Full
Some Evidence of Disease
80% Full Normal Activity with Effort Full Normal or Full
Some Evidence of Disease Reduced
70% Reduced Unable Normal Job/Work Full Normal or Full
Significant Disease Reduced
60% Reduced Unable Hobby/Housework Occasional Normal or Full or Confusion
Significant Disease Assistance Reduced
50% Mainly Sit/Lie Unable to do Any Work Considerable Normal or Full or Confusion
Extensive Disease Assistance Req'd Reduced
40% Mainly in Bed Unable to do Most Activity Mainly Assistance Normal or Full or Drowsy;
Extensive Disease Reduced +/- Confusion
30% Totally Bed Unable to do Any Activity Total Care Normal or Full or Drowsy;
Bound Extensive Disease Reduced +/- Confusion
20% Totally Bed Bound Unable to do Any Activity Total Care Minimal to Full or Drowsy;
Extensive Disease Sips +/- Confusion
10% Totally Bed Bound Unable to do Any Activity Total Care Mouth Care Drowsy or Coma;
Extensive Disease Only +/- Confusion
0%
PPS Score Level: 30
Physical Exam
-
General: No Apparent Distress and Comfortable
Respiratory: Other (yellowish secretions)
Neuro: Sedated
Patient received seroquel prn earlier today, sedated/sleepy at the time of my visit. Thick yellow secretions suctioned by RN at bedside
Care Reviewed
Data Reviewed
Medical Tests: I reviewed
Reviewed with: Patient
Time
Time Spent:
10:30-11:05 total time on floor, chart review, phone call to Terese
[2023-11-17 12:11] LABS: Glucose - Point of Care 146 mg/dl (70-99)
--- NOTE | 2023-11-17 12:19 | W.PN.UPDATE ---
Update Note
Progress Note Update
patient see chart reviewed. spoke with nursing and dr flor. the patient had several episodes over the past 24 hours requiring prns one shortly after midnight and one earlier today. he is currently in soft restraints. he is a little restless at
this moment but flaca not respond to efforts to engage him. a friend of the famiy came by and together we tried to interact with mr kay but he remained with eyes closed. he is afebrile being treated currently for respiratory infection. no
changes made in psych meds. will continue to monitor.
[2023-11-17 15:05] VITALS: BP 110/57
--- NOTE | 2023-11-17 15:55 | CM ---
Patient resting in bed with present.
Tube feeding restarted. Cont IV antibiotics.
Pallative care consulted.
PLAN: Palliative care, not ready for hospice at this time.
[2023-11-17] MEDS: LOVENOX 40 MG SC (17:23)
[2023-11-17 17:36] LABS: Glucose - Point of Care 139 mg/dl (70-99)
--- NOTE | 2023-11-17 18:30 | PTCARENOTE ---
Patient with alternating periods of drowsiness and restlessness throughout shift, agitated with care and turning requiring administration of PRN seroquel and ativan - see MAR. Patient with improvement in wet gurgly voice quality and secretions,
patient with occasional moist harsh cough, orally suctioned throughout shift for thick yellow secretions. Tube feeds infusing at goal rate of 55 ml/hr with 25 ml/hr flush. Patient occasionally with eyes open, mumbling confused conversation, unable
to follow commands, kicking legs and pulling at gown, linens, and tubes. B/L wrist and ankle restraints and B/L hand mitts still in place for safety. Medsitter in room. Patient afebrile throughout shift, rectal temp at 1730 99.4F, cooling blanket in
place under patient but turned off, rectal probe removed from patient.
[2023-11-17] MEDS: REMERON 7.5 MG TUBE (22:00)
[2023-11-17 23:02] VITALS: BP 146/65
[2023-11-18 00:19] LABS: Glucose - Point of Care 143 mg/dl (70-99)
[2023-11-18] MEDS: NOVOLOG FLEXPEN-LOW RESISTANCE SC (00:30)
[2023-11-18] MEDS: ZOSYN 50 IV ×4 (04:07→21:28)
[2023-11-18] MEDS: NSS (PRESERVATIVE FREE) 0.25 ML IV ×2 (04:15→10:27)
[2023-11-18] MEDS: ATIVAN 0.5 MG IV ×2 (04:16→10:26)
[2023-11-18 04:38] VITALS: BMI 18.5
[2023-11-18 06:15] LABS: Glucose - Point of Care 150 mg/dl (70-99)
[2023-11-18] MEDS: NOVOLOG FLEXPEN-LOW RESISTANCE 1 UNITS SC ×3 (06:19→18:17)
[2023-11-18 07:05] VITALS: BP 137/52
[2023-11-18 07:23] LABS: % Basophils 0.2 % (0-2); % Eosinophils 1.8 % (0-6); % Immature Granulocytes 0.2 % (0-0.5); % Lymphocytes 14.5 % (20.5-51.1); % Monocytes 7.1 % (1.7-9.3); % Neutrophils 76.2 % (42.2-75.2); Absolute Eosinophils 0.2 10^3/uL (0-0.7); Absolute Lymphocytes 1.3 10^3/uL (1.2-3.4); Absolute Monocytes 0.6 10^3/uL (0.1-0.6); Absolute Neutrophils 6.7 10^3/uL (1.4-6.5); Hematocrit 28.7 % (39.0-52.0); Hemoglobin 9.8 g/dL (13.0-18.0); Mean Corp Hgb Conc. 34.1 g/dL (33.0-37.0); Mean Corpuscular Hgb 32.2 pg (27.0-31.0); Mean Corpuscular Volume 94.4 fL (80.0-94.0); Mean Platelet Volume 10.5 fL (7.4-10.4); Nucleated Red Blood Cells % 0 % (-); Platelet Count 226 10^3/uL (130-400); Red Blood Cell Count 3.04 10^6/uL (4.70-6.10); Red Cell Dist. Width 13.2 % (11.5-14.5); White Blood Cell Count 8.8 10^3/uL (4.8-10.8)
[2023-11-18 07:31] LABS: Blood Urea Nitrogen 15 mg/dl (9-20); Calcium 8.4 mg/dl (8.4-10.2); Carbon Dioxide 31 mmol/L (22-30); Chloride 100 mmol/L (98-107); Estimated Creatinine Clearance 63 ml/min; Glucose 137 mg/dl (70-99); Sodium 137 mmol/L (135-145); eGFR > 60.00
[2023-11-18] MEDS: MYCOSTATIN ORAL SUSPENSION 5 ML PO ×3 (08:34→21:28)
[2023-11-18] MEDS: NSS (PRESERVATIVE FREE) 10 ML IV ×2 (08:35→21:27)
[2023-11-18] MEDS: PROTONIX IV 40 MG IV ×2 (08:35→21:26)
[2023-11-18] MEDS: LOPRESSOR 50 MG TUBE ×2 (08:36→21:25)
[2023-11-18] MEDS: LOW STRENGTH ASPIRIN 81 MG TUBE (08:36)
--- NOTE | 2023-11-18 09:21 | W.PN.HOSP.TC ---
Today's Communication/Plan
-
IV antibiotics. TF. Antipsychotics/benzos as needed.
Assessment / Plan
Assessment / Plan
General: Acutely ill
HEENT: Normocephalic, Atraumatic and Dry Mucous Membranes
Respiratory: Clear to auscultation bilateral, no crackles, no wheezes.
Cardiac: Regular Rhythm and S1/S2.
GI: Soft, Nontender and Nondistended
Musculoskeletal: No Clubbing, No Cyanosis and No Edema
Neuro: Alert, remains disoriented/encephalopathic. More interactive though.
Psych: Lack of judgment and insight.
A/P:
Recurrence aspiration pneumonia:
Improving
Likely a recurrent event aspiration event
WBC 14.4-->8.8 today
Continue IV antibiotics, Zosyn (this time which is his third round started on 11/15)
Blood cultures no growth from latest cultures on 11/15.
Discussed with at bedside today. She asked me if it would be a good idea to have her daughter come in from [place] and I told her that is reasonable so daughter likely coming next week.
Acute hypoxic respiratory insufficiency:
Started vest therapy and working well
Deep suction by respiratory therapy
Oxygen as needed--> currently on room air
Acute toxic metabolic encephalopathy: Remains very confused. Psychiatry assisting with delirium. Remains on restraints.
Encephalopathy fluctuates
Brain MRI no acute abnormality
Etiology multifactorial COVID-19 related encephalopathy and delirium with multiple offending factors during this hospital stay.
Continue restraints
Psychiatry on board and managing antipsychotics. Currently on mirtazapine, and Seroquel and Ativan as needed.
Speech therapy reevaluated with VSE but failed. Continue tube feedings. Unfortunately patient pulled tube x 2. Status post PEG replacement at bedside 11/13. Tube check study ok.
Palliative care and hospice consulted and appreciated input but is not ready to transition to Hospice.
Hyperglycemia:
Insulin sliding scale & check blood sugars
Sepsis with bacteremia, Serratia Marcescens Bacteremia-CLABSI/PICC line related versus recurrent aspiration pneumonia:
Stable
Finished course of antibiotics
ID signed off.
Prediabetes mellitus:
Insulin sliding scale while in the hospital
Hemoglobin A1c 5.8
Dysphagia: Patient again pulled out his feeding tube twice. Status post PEG replacement today at bedside after CT of the abdomen prior. Tube check study okay.
Tolerating PEG feedings prior.
TPN discontinued
Status post PEG on 10/30. Reinserted on 11/13
Speech therapy reeval and failed VSE. Continue TF
Aspiration pneumonia:
Status post treated with course of antibiotics
COVID-19:
Off isolation precautions
Status post treated with 5 days of Paxlovid
Western blot Lyme test came back negative for IgM and positive for IgG.
Hyponatremia -resolved.
Hyperkalemia - resolved.
Acute hypoxic respiratory failure:
Resolved
Urinary retention:
Continue following per urology recommendations due to urethral stricture
Discussed with urology and urology evaluated him and recommend to continue Ford catheter and plan to do void trial as outpatient in the rehab facility.
Continue Ford catheter
Past medical problems:
Essential hypertension
Dyslipidemia
Prediabetes mellitus
TIA/brain infarcts
PVD with carotid stenosis status post left CEA
Prostate cancer
DVT prophylaxis:
Lovenox 40 mg SQ daily
CODE STATUS -DNR
Anticipated Discharge: > 48 hours
Subjective/Interval History
-
Date of Service: November 18, 2023
Patient was slightly agitated this morning requiring benzodiazepine x 1. This afternoon patient looks calm and at bedside. Afebrile
Objective Data
-
Labs:
Laboratory Results
11/18/23
06:59
WBC 8.8
Hgb 9.8 L
Hct 28.7 L
Plt Count 226
Sodium 137
Potassium 4.0
Chloride 100
Carbon Dioxide 31 H
BUN 15
Creatinine 0.7
Glucose 137 H
Calcium 8.4
Vital Signs:
Vital Signs
Temp Pulse Resp BP Pulse Ox
98.5 F 78 16 137/52 98
11/18/23 07:05 11/18/23 08:36 11/18/23 07:05 11/18/23 08:36 11/18/23 07:05
I&O
11/17/23 11/18/23 11/19/23
06:59 06:59 06:59
Intake Total 1043 / 1043 1180 / 1180
Output Total 750 / 750 925 / 925
Balance 293 / 293 255 / 255
--- NOTE | 2023-11-18 11:50 | W.PN.PAL2 ---
Today's Communication
-
Patient seen at bedside. remains confused although much more alert compared to yesterday. Did not receive seroquel this am, receiving IV ativan prn. not at bedside at this time.
Left message on wifes number.
Assessment / Plan
-
Assessment/Plan:
Palliative care following
Reason for Admission
Illness Course/HPI
Check in visit.
HPI:
Ethan is a 78 y/o male with pmhx of mild cognitive impairment, tia cva, dm2, hld, who was hospitalized 10/15 with COVID, hospital stay has been complicated by aspiration pneumonia, dysphagia s/p peg tube insertion and delerium. Patient pulled out
peg tube twice - last over the weekend. palliative care was consulted to discuss goals of care. At his baseline, Stephen is very active. 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 His cognitive issues are minimal at this time per - forgetting a doctors appointment etc.
He was doing better during his hospital stay until the weekend with the move to the second floor. Medications have been adjusted by psychiatry. At this time, goals are treatment oriented, and would like to give him more time to recover. She
understands that it may take some time, and to consider what his wishes would be if he did not return to his baseline. She states that he would not want CPR or Intubation, but would be ok with peg tube, goodwin, and treatment of infections.
Functional Status & Support Systems
Current Functional Status:
Currently confused, and unable to follow directions
At baseline is independent of adls and iadls
Compound Machine Operator/Family Support: Spouse Terese
Review of Advanced Directives
Advanced Care Documentation Status: Complete
Preferences Regarding Resuscitation at End of Life: DNR
Goals of Care Discussion
-
Patient able to participate in discussion at time of visit: No
Objective Data
-
Objective Data:
Vital Signs
Temp Pulse Resp BP Pulse Ox
98.5 F 78 16 137/52 98
11/18/23 07:05 11/18/23 08:36 11/18/23 07:05 11/18/23 08:36 11/18/23 08:00
Laboratory Results
11/18/23 06:59
11/18/23 06:59
PT 14.5 Sec (11.4-14.6) 10/27/23 08:56
INR 1.12 10/27/23 08:56
Hemoglobin A1c 5.8 % (4.0-5.6) H 10/17/23 08:59
Total Protein 5.5 g/dl (6.3-8.2) L 11/16/23 08:47
Albumin 3.1 g/dl (3.5-5.0) L 11/16/23 08:47
Urine Color Yellow 11/01/23 20:48
Urine Clarity Clear (Clear) 11/01/23 20:48
Urine pH 6.0 (5.0-9.0) 11/01/23 20:48
Ur Specific [place] 1.025 (<1.030) 11/01/23 20:48
Urine Ketones Negative (Negative) 11/01/23 20:48
Urine Bilirubin Negative (Negative) 11/01/23 20:48
Palliative Performance Scale
Palliative Performance Scale:
PPS Level Ambulation Activity & Evidence of Disease Self Care Intake Conscious Level
100% Full Normal Activity & Work; Full Intake Full
No Evidence of Disease
90% Full Normal Activity & Work; Full Normal Full
Some Evidence of Disease
80% Full Normal Activity with Effort Full Normal or Full
Some Evidence of Disease Reduced
70% Reduced Unable Normal Job/Work Full Normal or Full
Significant Disease Reduced
60% Reduced Unable Hobby/Housework Occasional Normal or Full or Confusion
Significant Disease Assistance Reduced
50% Mainly Sit/Lie Unable to do Any Work Considerable Normal or Full or Confusion
Extensive Disease Assistance Req'd Reduced
40% Mainly in Bed Unable to do Most Activity Mainly Assistance Normal or Full or Drowsy;
Extensive Disease Reduced +/- Confusion
30% Totally Bed Unable to do Any Activity Total Care Normal or Full or Drowsy;
Bound Extensive Disease Reduced +/- Confusion
20% Totally Bed Bound Unable to do Any Activity Total Care Minimal to Full or Drowsy;
Extensive Disease Sips +/- Confusion
10% Totally Bed Bound Unable to do Any Activity Total Care Mouth Care Drowsy or Coma;
Extensive Disease Only +/- Confusion
0%
PPS Score Level: 30
Physical Exam
-
General: Comfortable
Neuro: Awake
Psych: Confused and Agitated
awake, agitated and confused
Care Reviewed
Data Reviewed
EKG Tracings: Report Reviewed
[2023-11-18 12:08] LABS: Glucose - Point of Care 157 mg/dl (70-99)
--- NOTE | 2023-11-18 13:50 | W.PN.UPDATE ---
Update Note
Progress Note Update
patient seen chart reviewed. and family friend at bedside. the patient was more alert this afternoon although still in restraints. he did greet me clearly remembering me from earlier in his stay. this is the first time since tuesday that he
has been awake and alert when i saw him. that is NOT to say that he is less confused. he is not. he remains confused at this moment and unable to engage in any productive conversation. family asks if they could put him in a wheelchair and take him
around the unit. they feel that might help him to calm himself. and friend describe that he is normally a very hyper person who never sits down..he is always doing something and they feel perhaps a change in his routine might help him settle
down. nursing is contacting PT to suggest. they also ask if a carrington chair could be better from him throughout the day than lying in bed. asked nsg to consider this. no changes made in meds. it is hoped today's improvement will become more
consistent although he has been like this before (last tuesday he looked even more alert than today) and regressed although not clearl why.
--- NOTE | 2023-11-18 14:59 | CM ---
Patient seen at bedside.
Restraints.
Continues on IV abx/tube feeds.
not ready to transition to hospice.
PLAN: CM to continue to follow for needs.
[2023-11-18 15:12] VITALS: BP 143/63
[2023-11-18] MEDS: LOVENOX 40 MG SC (17:02)
[2023-11-18] MEDS: MYCOSTATIN ORAL SUSPENSION PO (17:03)
[2023-11-18 18:11] LABS: Glucose - Point of Care 157 mg/dl (70-99)
[2023-11-18] MEDS: REMERON 7.5 MG TUBE (21:28)
[2023-11-18 23:05] VITALS: BP 146/63
[2023-11-19 00:13] LABS: Glucose - Point of Care 137 mg/dl (70-99)
[2023-11-19] MEDS: NOVOLOG FLEXPEN-LOW RESISTANCE SC ×2 (00:28→12:42)
[2023-11-19] MEDS: ZOSYN 50 IV ×4 (04:42→22:47)
[2023-11-19 05:30] VITALS: BMI 17.9
[2023-11-19 06:05] LABS: Glucose - Point of Care 161 mg/dl (70-99)
[2023-11-19] MEDS: NOVOLOG FLEXPEN-LOW RESISTANCE 1 UNITS SC ×2 (06:13→18:23)
[2023-11-19 07:05] VITALS: BP 148/63
--- NOTE | 2023-11-19 09:07 | W.PN.HOSP.TC ---
Today's Communication/Plan
-
IV antibiotics. Try a Nava chair.
Assessment / Plan
Assessment / Plan
General: Acutely ill
HEENT: Normocephalic, Atraumatic and Dry Mucous Membranes
Respiratory: Clear to auscultation bilateral, no crackles, no wheezes.
Cardiac: Regular Rhythm and S1/S2.
GI: Soft, Nontender and Nondistended
Musculoskeletal: No Clubbing, No Cyanosis and No Edema
Neuro: Alert, remains disoriented/encephalopathic. More interactive though.
Psych: Lack of judgment and insight.
A/P:
Recurrence aspiration pneumonia:
Improving
Likely a recurrent event aspiration event
WBC 14.4-->8.8
Continue IV antibiotics, Zosyn (this time which is his third round and started on 11/15)
Blood cultures no growth from latest cultures on 11/15.
Discussed with at bedside today on 11/18. Daughter is coming from [place] this coming week.
Will try Nava chair today
Acute hypoxic respiratory insufficiency:
Improving
Started vest therapy and working well
Deep suction by respiratory therapy
Oxygen as needed--> currently on room air
Acute toxic metabolic encephalopathy: Remains confused. Psychiatry assisting with delirium. Remains on restraints.
Encephalopathy fluctuates, especially when he gets an aspiration event just get worse, today appears somewhat improved.
Brain MRI no acute abnormality
Etiology multifactorial COVID-19 related encephalopathy and delirium with multiple offending factors during this hospital stay.
Continue restraints
Psychiatry on board and managing antipsychotics. Currently on mirtazapine, and Seroquel and Ativan as needed.
Speech therapy reevaluated with VSE but failed. Continue tube feedings. Unfortunately patient pulled tube x 2. Status post PEG replacement at bedside 11/13. Tube check study ok.
Palliative care and hospice consulted and appreciated input but is not ready to transition to Hospice.
Hyperglycemia:
Insulin sliding scale & check blood sugars
Sepsis with bacteremia, Serratia Marcescens Bacteremia-CLABSI/PICC line related versus recurrent aspiration pneumonia:
Stable
Finished course of antibiotics
ID signed off.
Prediabetes mellitus:
Insulin sliding scale while in the hospital
Hemoglobin A1c 5.8
Dysphagia: Patient again pulled out his feeding tube twice. Status post PEG replacement today at bedside after CT of the abdomen prior. Tube check study okay.
Tolerating PEG feedings prior.
TPN discontinued
Status post PEG on 10/30. Reinserted on 11/13
Speech therapy reeval and failed VSE. Continue TF
Aspiration pneumonia:
Status post treated with course of antibiotics
COVID-19:
Off isolation precautions
Status post treated with 5 days of Paxlovid
Western blot Lyme test came back negative for IgM and positive for IgG.
Hyponatremia -resolved.
Hyperkalemia - resolved.
Acute hypoxic respiratory failure:
Resolved
Urinary retention:
Continue following per urology recommendations due to urethral stricture
Discussed with urology and urology evaluated him and recommend to continue Ford catheter and plan to do void trial as outpatient in the rehab facility.
Continue Ford catheter
Past medical problems:
Essential hypertension
Dyslipidemia
Prediabetes mellitus
TIA/brain infarcts
PVD with carotid stenosis status post left CEA
Prostate cancer
DVT prophylaxis:
Lovenox 40 mg SQ daily
CODE STATUS -DNR
Anticipated Discharge: > 48 hours
Subjective/Interval History
-
Date of Service: November 19, 2023
Patient appears more alert today. Afebrile.
Objective Data
-
Vital Signs:
Vital Signs
Temp Pulse Resp BP Pulse Ox
97.6 F 81 16 148/63 94
11/19/23 07:05 11/19/23 07:05 11/19/23 07:05 11/19/23 07:05 11/19/23 07:05
I&O
11/18/23 11/19/23 11/20/23
06:59 06:59 06:59
Intake Total 1180 / 1180 1060 / 1060
Output Total 925 / 925 1000 / 1000
Balance 255 / 255 60 / 60
[2023-11-19] MEDS: PROTONIX IV 40 MG IV ×2 (09:37→20:05)
[2023-11-19] MEDS: LOPRESSOR 50 MG TUBE ×2 (09:37→20:05)
[2023-11-19] MEDS: LOW STRENGTH ASPIRIN 81 MG TUBE (09:37)
[2023-11-19] MEDS: MYCOSTATIN ORAL SUSPENSION 5 ML PO ×4 (09:37→22:47)
[2023-11-19] MEDS: NSS (PRESERVATIVE FREE) 10 ML IV ×2 (09:38→20:04)
[2023-11-19 12:06] LABS: Glucose - Point of Care 146 mg/dl (70-99)
--- NOTE | 2023-11-19 14:25 | W.PN.UPDATE ---
Update Note
Progress Note Update
patient seen chart reviewed. discussed w nursing. the patient is in a carrington chair today and looks much like he did when i saw him last tuesday before the pneumonia. he is pleasant and calm. he does however remain very confused. he looks at you and
begins to speak seemingly seriously but what he says makes no logical sense. at bedside and she has a very comforting effect upon him. we addressed a number of issues. expressed concern that there was blood in the goodwin which i
communicated to nsg and hospitalist. she also wondered if he could be transitioned to a urinal. also communicated to dr flor. psychiatrically discussed with the following observation. the patient has been described by her and all friends
who visited him as a very hyperactive person. i wonder if this is translating into an activated delirium secondary to covid infection and whether depakote might be considered in addition to current seroquel it could be given iv or sprinkle caps or
liquid into the peg. these might be preferable as the tablets are very big. wants to wait and see if today's improvement holds. will communicate this to md presentation designer for tomorrow. also discussed w staff whether patient could be at nurse's
station in carrington chair instead of back in bed. lastly is concerned that restraints and mitts may agitated him more. will be bringing him some paper markers and coloring book to see if we can engage him in some activity.
[2023-11-19 15:05] VITALS: BP 125/52
[2023-11-19] MEDS: ATIVAN 0.5 MG IV ×2 (17:07→23:44)
[2023-11-19] MEDS: LOVENOX 40 MG SC (17:11)
[2023-11-19 18:20] LABS: Glucose - Point of Care 180 mg/dl (70-99)
[2023-11-19] MEDS: REMERON 7.5 MG TUBE (22:47)
[2023-11-19 23:00] VITALS: BP 114/49
[2023-11-20 00:09] LABS: Glucose - Point of Care 174 mg/dl (70-99)
[2023-11-20] MEDS: NOVOLOG FLEXPEN-LOW RESISTANCE 1 UNITS SC ×3 (00:56→18:09)
[2023-11-20] MEDS: ZOSYN 50 IV ×2 (03:18→09:06)
[2023-11-20 06:00] VITALS: BMI 18.2
[2023-11-20 06:07] LABS: Glucose - Point of Care 149 mg/dl (70-99)
[2023-11-20] MEDS: NOVOLOG FLEXPEN-LOW RESISTANCE SC (06:29)
[2023-11-20 07:05] VITALS: BP 145/65
[2023-11-20 07:09] LABS: Glucose - Point of Care 160 mg/dl (70-99)
[2023-11-20] MEDS: LOPRESSOR 50 MG TUBE ×2 (09:01→20:01)
[2023-11-20] MEDS: PROTONIX IV 40 MG IV ×2 (09:01→19:54)
[2023-11-20] MEDS: NSS (PRESERVATIVE FREE) 10 ML IV ×2 (09:01→20:15)
[2023-11-20] MEDS: LOW STRENGTH ASPIRIN 81 MG TUBE (09:01)
[2023-11-20] MEDS: MYCOSTATIN ORAL SUSPENSION 5 ML PO ×4 (09:01→21:25)
[2023-11-20] MEDS: SEROQUEL 25 MG TUBE (09:04)
--- NOTE | 2023-11-20 09:51 | W.PN.HOSP.TC ---
Today's Communication/Plan
-
Antibiotics. Antipsychotics and benzodiazepines.
Assessment / Plan
Assessment / Plan
General: Acutely ill
HEENT: Normocephalic, Atraumatic and Dry Mucous Membranes
Respiratory: Clear to auscultation bilateral, no crackles, no wheezes.
Cardiac: Regular Rhythm and S1/S2.
GI: Soft, Nontender and Nondistended
Musculoskeletal: No Clubbing, No Cyanosis and No Edema
Neuro: Lethargic, remains disoriented/encephalopathic. Less interactive today.
Psych: Lack of judgment and insight.
A/P:
Recurrence aspiration pneumonia:
Improving
Likely a recurrent event aspiration event
WBC 14.4-->8.8
Change IV antibiotics to oral/through PEG and finish course in 1 or 2 days (this time which is his third round and started on 11/15)
Blood cultures no growth from latest cultures on 11/15.
Discussed with at bedside today on 11/19.
Daughter is coming from [place] this coming week.
We used Nava chair yesterday so we will use it as appropriate moving forward. He is using it this afternoon.
Discussed with attending RN today.
Discussed with at bedside today on 11/19
Will continue with restraints when not in the Nava chair and if his mentation improves can consider discontinue down the road.
Acute hypoxic respiratory insufficiency:
Improving
Started vest therapy and working well
Deep suction by respiratory therapy
Oxygen as needed--> currently on room air
Acute toxic metabolic encephalopathy: Remains confused. Psychiatry assisting with delirium. Remains on restraints.
Encephalopathy fluctuates, especially when he gets an aspiration event just get worse, today appears somewhat improved.
Patient sedated today 11/19 after receiving Seroquel. Family and psychiatry agreed to use benzodiazepine first for agitation due to less sedative effects.
Brain MRI no acute abnormality
Etiology multifactorial COVID-19 related encephalopathy and delirium with multiple offending factors during this hospital stay.
Continue restraints
Psychiatry on board and managing antipsychotics. Currently on mirtazapine, and Seroquel and Ativan as needed.
Speech therapy reevaluated with VSE but failed. Continue tube feedings. Unfortunately patient pulled tube x 2. Status post PEG replacement at bedside 11/13. Tube check study ok.
Palliative care and hospice consulted and appreciated input but is not ready to transition to Hospice.
Hyperglycemia:
Insulin sliding scale & check blood sugars
Sepsis with bacteremia, Serratia Marcescens Bacteremia-CLABSI/PICC line related versus recurrent aspiration pneumonia:
Stable
Finished course of antibiotics
ID signed off.
Prediabetes mellitus:
Insulin sliding scale while in the hospital
Hemoglobin A1c 5.8
Dysphagia: Patient again pulled out his feeding tube twice. Status post PEG replacement at bedside by GI. Tube check study okay.
Tolerating PEG feedings prior.
TPN discontinued
Status post PEG on 10/30. Reinserted on 11/13
Speech therapy reeval and failed VSE. Continue TF
Aspiration pneumonia:
Status post treated with course of antibiotics
COVID-19:
Off isolation precautions
Status post treated with 5 days of Paxlovid
Western blot Lyme test came back negative for IgM and positive for IgG.
Hyponatremia -resolved.
Hyperkalemia - resolved.
Acute hypoxic respiratory failure:
Resolved
Urinary retention:
Continue following per urology recommendations due to urethral stricture
Discussed with urology and urology evaluated him and recommend to continue Ford catheter and plan to do void trial as outpatient in the rehab facility.
Continue Ford catheter
Past medical problems:
Essential hypertension
Dyslipidemia
Prediabetes mellitus
TIA/brain infarcts
PVD with carotid stenosis status post left CEA
Prostate cancer
DVT prophylaxis:
Lovenox 40 mg SQ daily
CODE STATUS -DNR
Anticipated Discharge: > 48 hours
Subjective/Interval History
-
Date of Service: November 20, 2023
Patient sedated this afternoon after receiving Seroquel. Family and psychiatry agreed to use benzodiazepine first for agitation due to less sedative effects. Afebrile
Objective Data
-
Vital Signs:
Vital Signs
Temp Pulse Resp BP Pulse Ox
97.1 F 95 16 145/65 93
11/20/23 07:05 11/20/23 07:05 11/20/23 07:05 11/20/23 07:05 11/20/23 07:05
I&O
11/19/23 11/20/23 11/21/23
06:59 06:59 06:59
Intake Total 1060 / 1060
Output Total 1000 / 1000 1300 / 1300
Balance 60 / 60 -1300 / -1300
--- NOTE | 2023-11-20 12:05 | W.PN.UPDATE ---
Update Note
Progress Note Update
Patient seems oversedated today. Apparently was agitated earlier and was given 25 mg of Seroquel. Family who is very involved feels that Ativan is less sedating yet still effective for agitation.
I discussed it with them and will write the order to give Seroquel only if the Ativan is not effective.
Will continue to follow.
[2023-11-20 12:46] LABS: Glucose - Point of Care 156 mg/dl (70-99)
[2023-11-20] MEDS: AUGMENTIN 875 MG/125 MG 1 TABLET TUBE ×2 (13:22→19:54)
[2023-11-20 15:05] VITALS: BP 101/43
--- NOTE | 2023-11-20 15:37 | PTCARENOTE ---
Pt. agitated and pulled mitts off beginning of shift. PRN Seroquel administered for agitation per order. Pt. intermittently drowsy but calm. and friend at bedside and requested patient get assisted into carrington chair. Restraints removed. Patient
resting calmly in carrington chair with family at bedside. Patient conversing more clearly and was continent of a BM on commode. Psych to see patient. Moving forward, instructed nursing staff to give PRN Ativan for agitation and only to give Seroquel prn
if Ativan is ineffective. See PRN order instructions.
[2023-11-20] MEDS: LOVENOX 40 MG SC (18:08)
[2023-11-20 18:11] LABS: Glucose - Point of Care 159 mg/dl (70-99)
[2023-11-20] MEDS: NSS (PRESERVATIVE FREE) 0.25 ML IV (18:20)
[2023-11-20] MEDS: ATIVAN 0.5 MG IV (18:20)
[2023-11-20] MEDS: REMERON 7.5 MG TUBE (21:25)
[2023-11-20 23:28] VITALS: BP 148/65
[2023-11-21 00:23] LABS: Glucose - Point of Care 148 mg/dl (70-99)
[2023-11-21] MEDS: NOVOLOG FLEXPEN-LOW RESISTANCE SC (00:28)
[2023-11-21 05:26] VITALS: BMI 18.5
[2023-11-21 06:56] LABS: Glucose - Point of Care 161 mg/dl (70-99)
[2023-11-21] MEDS: NOVOLOG FLEXPEN-LOW RESISTANCE 1 UNITS SC ×3 (06:58→17:22)
[2023-11-21 07:00] VITALS: BP 106/72
[2023-11-21] MEDS: MYCOSTATIN ORAL SUSPENSION 5 ML PO ×3 (08:00→21:40)
[2023-11-21] MEDS: LOPRESSOR 50 MG TUBE ×2 (08:00→20:52)
[2023-11-21] MEDS: AUGMENTIN 875 MG/125 MG 1 TABLET TUBE ×2 (08:00→20:52)
[2023-11-21] MEDS: LOW STRENGTH ASPIRIN 81 MG TUBE (08:00)
[2023-11-21] MEDS: NSS (PRESERVATIVE FREE) 10 ML IV ×2 (08:01→21:37)
[2023-11-21] MEDS: PROTONIX IV 40 MG IV ×2 (08:01→21:39)
--- NOTE | 2023-11-21 11:25 | PTCARENOTE ---
Patient still confused/ AAOx self, however, more cooperative and alert. Patient taken out of restraints. Medsitter/ bed alarm in place. ABD binder around G tube, goodwin in place. Patient making no attempts to touch tubes. Medsitter made aware about
restraint removal.
[2023-11-21 12:06] LABS: Glucose - Point of Care 162 mg/dl (70-99)
--- NOTE | 2023-11-21 12:38 | W.PN.HOSP.TC ---
Today's Communication/Plan
-
see plan above
Assessment / Plan
Assessment / Plan
A/P:
Recurrence aspiration pneumonia:
Improving
Likely a recurrent event aspiration event
WBC 14.4-->8.8
Change IV antibiotics to oral/through PEG and finish course in 1 days (this time which is his third round and started on 11/15)
Blood cultures no growth from latest cultures on 11/15.
Daughter is coming from [place] this coming week.
cw Nava chair, reorientation , and med for agitation
Discussed with RN today.
Discussed with at bedside today on 11/19
Acute hypoxic respiratory insufficiency:
Resolved
Started vest therapy and working well
Deep suction by respiratory therapy
Oxygen as needed--> currently on room air
Acute toxic metabolic encephalopathy: Remains confused. Psychiatry assisting with delirium.
Encephalopathy fluctuates, especially when he gets an aspiration event just get worse, today appears somewhat improved.
Family and psychiatry agreed to use benzodiazepine first for agitation due to less sedative effects.
Brain MRI no acute abnormality
Etiology multifactorial COVID-19 related encephalopathy and delirium with multiple offending factors during this hospital stay.
Psychiatry on board and managing antipsychotics. Currently on mirtazapine, and Seroquel and Ativan as needed.
Speech therapy reevaluated with VSE but failed. Continue tube feedings. Unfortunately patient pulled tube x 2. Status post PEG replacement at bedside 11/13. Tube check study ok.
Palliative care and hospice consulted and appreciated input but is not ready to transition to Hospice.
With no clear diagnosis of his acute change in mental status/encephalopathy apart from positive COVID on admission ,did discuss about lumbar puncture and the wants to think about it.
Hyperglycemia:
Insulin sliding scale & check blood sugars
Sepsis with bacteremia, Serratia Marcescens Bacteremia-CLABSI/PICC line related versus recurrent aspiration pneumonia:
Stable
Finished course of antibiotics
ID signed off.
Prediabetes mellitus:
Insulin sliding scale while in the hospital
Hemoglobin A1c 5.8
Dysphagia: Patient again pulled out his feeding tube twice. Status post PEG replacement at bedside by GI. Tube check study okay.
Tolerating PEG feedings prior.
TPN discontinued
Status post PEG on 10/30. Reinserted on 11/13
Speech therapy reeval and failed VSE. Continue TF
Aspiration pneumonia:
Status post treated with course of antibiotics
COVID-19:
Off isolation precautions
Status post treated with 5 days of Paxlovid
Western blot Lyme test came back negative for IgM and positive for IgG.
Hyponatremia -resolved.
Hyperkalemia - resolved.
Acute hypoxic respiratory failure:
Resolved
Urinary retention:
Continue following per urology recommendations due to urethral stricture
Discussed with urology and urology evaluated him and recommend to continue Ford catheter and plan to do void trial as outpatient in the rehab facility.
Continue Ford catheter
Past medical problems:
Essential hypertension
Dyslipidemia
Prediabetes mellitus
TIA/brain infarcts
PVD with carotid stenosis status post left CEA
Prostate cancer
DVT prophylaxis:
Lovenox 40 mg SQ daily
CODE STATUS -DNR
Anticipated Discharge: > 48 hours
Subjective/Interval History
-
Date of Service: November 21, 2023
remains confused.
He was moved from the bed to the chair in my presence. Required 2 people for transfer.
He is in the Nava chair. Incomprehensible words sometimes and confused.
According to RN his confusion is better than yesterday. Yesterday he required a Nava chair in the morning and restraints in the night.
at bedside-still finds him confused but no worse.
Objective Data
-
Vital Signs:
Vital Signs
Temp Pulse Resp BP Pulse Ox
98.2 F 81 16 106/72 98
09/02/24 07:00 11/21/23 07:00 11/21/23 07:00 11/21/23 07:00 11/21/23 07:00
I&O
11/20/23 11/21/23 11/22/23
06:59 06:59 06:59
Intake Total 1060 / 1060
Output Total 1300 / 1300 1100 / 1100
Balance -1300 / -1300 -40 / -40
Review of Systems
-
Unable to obtain full review of systems at this time due to: Other ( Cognitive impairment)
Physical Exam
-
General: No Apparent Distress
HEENT: Moist Mucous Membranes
Respiratory: Non Labored Respirations; Negative Accessory Resp Muscle Use
Cardiac: Regular Rhythm and S1/S2
GI: Soft
Neuro: Awake and Alert; Negative Oriented, No Motor Deficits ( hard to evaluate but moves all 4 limbs.) or Tremors
Psych: Confused; Negative Agitated (At this moment)
--- NOTE | 2023-11-21 13:20 | W.PN.UPDATE ---
Update Note
Progress Note Update
Patient is sleeping and he refused to talk when woken. feels he is improving slowly apparently she was able to converse with him yesterday afternoon.
He was not in need of psychotropic meds but still is on the Ativan and Seroquel prn.
Will continue F/U.
[2023-11-21 15:05] VITALS: BP 114/56
[2023-11-21] MEDS: NSS (PRESERVATIVE FREE) 0.25 ML IV (17:17)
[2023-11-21] MEDS: ATIVAN 0.5 MG IV (17:17)
[2023-11-21] MEDS: LOVENOX 40 MG SC (17:18)
[2023-11-21] MEDS: MYCOSTATIN ORAL SUSPENSION PO ×2 (17:18→17:23)
[2023-11-21 17:22] LABS: Glucose - Point of Care 158 mg/dl (70-99)
[2023-11-21] MEDS: SEROQUEL 25 MG TUBE (20:51)
[2023-11-21] MEDS: REMERON 7.5 MG TUBE (20:52)
--- NOTE | 2023-11-21 21:02 | PTCARENOTE ---
Received call from pt oscar with concerns of pt playing with/tugging on goodwin catheter. Pt with a blanket wrapped around his hand and a firm stage electrician helper on his goodwin catheter tubing. Pt AAOx1, participating in confused conversation, unable to be
oriented to reality and no following commands. Pt also found to have soiled the bed and linens with stool. Pt agitated with staff, not letting go of catheter or allowing staff to assist him to roll to perform hygiene for his bowel movement. While
attempting to assist pt to remove his hand from goodwin catheter tubing, pt pulling knees up and pulling back his arm with his free hand attempting to hit staff multiple times, becoming increasingly agitated. Pt received PRN Ativan ~ 1700 and is not
due for several more hours, PRN Seroquel administered, see MAR.
[2023-11-21 23:07] VITALS: BP 124/57
[2023-11-22 00:19] LABS: Glucose - Point of Care 149 mg/dl (70-99)
[2023-11-22] MEDS: NOVOLOG FLEXPEN-LOW RESISTANCE SC ×3 (00:58→17:25)
[2023-11-22 05:29] VITALS: BMI 17.7
[2023-11-22 06:00] VITALS: BMI 17.7
[2023-11-22] MEDS: NOVOLOG FLEXPEN-LOW RESISTANCE 1 UNITS SC (06:17)
[2023-11-22 06:19] LABS: Glucose - Point of Care 157 mg/dl (70-99)
[2023-11-22 07:53] VITALS: BP 96/61
[2023-11-22] MEDS: MYCOSTATIN ORAL SUSPENSION 5 ML PO (08:32)
[2023-11-22] MEDS: LOPRESSOR 50 MG TUBE ×2 (08:32→21:03)
[2023-11-22] MEDS: LOW STRENGTH ASPIRIN 81 MG TUBE (08:32)
[2023-11-22] MEDS: AUGMENTIN 875 MG/125 MG 1 TABLET TUBE ×2 (08:32→21:03)
[2023-11-22] MEDS: NSS (PRESERVATIVE FREE) 10 ML IV ×2 (08:33→21:03)
[2023-11-22] MEDS: PROTONIX IV 40 MG IV ×2 (08:33→21:02)
[2023-11-22 10:08] LABS: Hematocrit 32.4 % (39.0-52.0); Hemoglobin 10.7 g/dL (13.0-18.0); Mean Corpuscular Hgb 31.9 pg (27.0-31.0); Mean Corpuscular Volume 96.7 fL (80.0-94.0); Platelet Count 390 10^3/uL (130-400); Red Blood Cell Count 3.35 10^6/uL (4.70-6.10); Red Cell Dist. Width 13.7 % (11.5-14.5)
[2023-11-22 10:19] LABS: Blood Urea Nitrogen 18 mg/dl (9-20); Calcium 9.1 mg/dl (8.4-10.2); Carbon Dioxide 31 mmol/L (22-30); Chloride 101 mmol/L (98-107); Estimated Creatinine Clearance 70 ml/min; Glucose 148 mg/dl (70-99); Potassium 4.7 mmol/L (3.5-5.1); Sodium 140 mmol/L (135-145); eGFR > 60.00
--- NOTE | 2023-11-22 10:30 | PTOTSP ---
Speech Language Pathology
Pt seen for dysphagia tx. Pt with no recollection of progression of dysphagia during admission. Reviewed course including results/recommendations from VSE. Completed effortful swallow exercises with use of ice chips to aid in swallow initiation.
Pt able to complete 3 sets of 10 given mod verbal cueing with occasional model. Pt actually able to participate in therapy this date (was only able to participate in therapy to this level x1 during admission prior to today). Occasional wet throat
clearing/cough noted with ice chips, suspect aspiration.
Recommend:
(1) Continued NPO
(2) Oral care 4x/day with suctioning as needed
(3) Meds via PEG
(4) Allow ice chips given supervision post Aspiration Risk Hydration Protocol (ARHP). may provide ice chips to pt without nursing supervision to in completing swallowing exercises during the day
(5) GANG KNIFE [employer] CH[employer]PER to continue to follow
--- NOTE | 2023-11-22 11:41 | W.PN.UPDATE ---
Update Note
Progress Note Update
Patient is much better this AM, able to hold conversation and pleasant. Still disoriented to time and place. Last night unfortunately he was agitated and need the prn Seroquel 25mg to calm down.
Discussed with .
Will F/U.
[2023-11-22 11:52] LABS: Glucose - Point of Care 149 mg/dl (70-99)
[2023-11-22 12:09] VITALS: BMI 18.1
[2023-11-22 12:17] VITALS: BP 93/52; PULSE 77; O2SAT 97
[2023-11-22 12:25] VITALS: BP 93/52; PULSE 77; O2SAT 97
[2023-11-22] MEDS: MYCOSTATIN ORAL SUSPENSION PO (13:24)
--- NOTE | 2023-11-22 13:27 | CM ---
Patient seen today in [facility] with present.
Medsitter
Patient continues with TF, confused.
PT recommended SNF. [facility] no avail beds.
Attempted to discuss options with & she did not wish to review at this time.
CM to continue to follow patient for needs.
PLAN: Discharge when medically stable. PT recommending SNF.
--- NOTE | 2023-11-22 14:00 | PTCARENOTE ---
Pt. more alert and cooperative today. Patient assisted to chair with one assist. Patient still unsteady. Patient making no attempts to touch peg tube or goodwin catheter. Speech therapy at bedside evaluating patient and doing exercises. updated
at bedside.
--- NOTE | 2023-11-22 14:17 | W.PN.HOSP.TC ---
Today's Communication/Plan
-
Continue with current supportive treatments.
DC plan if remains calm without agitation.
Assessment / Plan
Assessment / Plan
A/P:
Recurrence aspiration pneumonia:
Improving
Likely a recurrent event aspiration event
WBC 14.4-->normalized
Change IV antibiotics to oral/through PEG and finish course (this time which is his third round and started on 11/15)
Blood cultures no growth from latest cultures on 11/15.
Acute hypoxic respiratory insufficiency:
Resolved
DC vest therapy
Oxygen as needed--> currently on room air
Acute toxic metabolic encephalopathy: Remains confused . Definitely with improved mentation but also some of the cognitive dysfunction.. Psychiatry assisting with agitation.
Encephalopathy fluctuates.
Family and psychiatry agreed to use benzodiazepine first for agitation due to less sedative effects.
Brain MRI no acute abnormality
Etiology multifactorial COVID-19 related encephalopathy and delirium with multiple offending factors during this hospital stay.
Psychiatry on board and managing antipsychotics. Currently on mirtazapine, and Seroquel and Ativan as needed.
Speech therapy reevaluated with VSE but failed. Continue tube feedings. Unfortunately patient pulled tube x 2. Status post PEG replacement at bedside 11/13. Tube check study ok.
cw Nava chair, reorientation , and med for agitation ; needed seroquel one dose last night.
With no clear diagnosis of his acute change in mental status/encephalopathy apart from positive COVID on admission ,did discuss about lumbar puncture and the wants to think about it- she wants to hold on it for now.
Hyperglycemia:
Insulin sliding scale & check blood sugars
Sepsis with bacteremia, Serratia Marcescens Bacteremia-CLABSI/PICC line related versus recurrent aspiration pneumonia:
Stable
Finished course of antibiotics
ID signed off.
Prediabetes mellitus:
Insulin sliding scale while in the hospital
Hemoglobin A1c 5.8
Dysphagia: Patient again pulled out his feeding tube twice. Status post PEG replacement at bedside by GI. Tube check study okay.
Tolerating PEG feedings prior.
TPN discontinued
Status post PEG on 10/30. Reinserted on 11/13
Speech therapy reeval and failed VSE. Continue TF
COVID-19:
Off isolation precautions
Status post treated with 5 days of Paxlovid
Western blot Lyme test came back negative for IgM and positive for IgG.
Urinary retention:
Continue following per urology recommendations due to urethral stricture
Discussed with urology and urology evaluated him and recommend to continue Ford catheter and plan to do void trial as outpatient in the rehab facility.
Continue Ford catheter
Past medical problems:
Essential hypertension
Dyslipidemia
Prediabetes mellitus
TIA/brain infarcts
PVD with carotid stenosis status post left CEA
Prostate cancer
DVT prophylaxis:
Lovenox 40 mg SQ daily
CODE STATUS -DNR
DW today at bedside
Anticipated Discharge: 24 - 48 hours
Subjective/Interval History
-
Date of Service: November 22, 2023
Pt is very alert and oriented to place and person.
Cooperative and conversive.
Improved in general per but cogntive impairment flututates.
He knows his daughter is coming from [place].
Objective Data
-
Labs:
Laboratory Results
11/22/23
09:28
WBC 11.0 H
Hgb 10.7 L
Hct 32.4 L
Plt Count 390 D
Sodium 140
Potassium 4.7
Chloride 101
Carbon Dioxide 31 H
BUN 18
Creatinine 0.6 L
Glucose 148 H
Calcium 9.1
Vital Signs:
Vital Signs
Temp Pulse Resp BP Pulse Ox
98.1 F 78 22 96/61 98
11/22/23 07:53 11/22/23 07:53 11/22/23 07:53 11/22/23 07:53 11/21/23 23:29
I&O
11/21/23 11/22/23 11/23/23
06:59 06:59 06:59
Intake Total 1060 / 1060 1020 / 1020
Output Total 1100 / 1100 1200 / 1200
Balance -40 / -40 -180 / -180
Review of Systems
-
Unable to obtain full review of systems at this time due to: Other (Unable to finish due to Cognitive impairment)
Physical Exam
-
General: Comfortable
HEENT: Moist Mucous Membranes
Respiratory: Clear to Auscultation
Cardiac: Regular Rhythm and S1/S2
GI: Soft
Neuro: Awake, Alert, Oriented and No Motor Deficits; Negative Tremors
Psych: Calm and Confused; Negative Agitated
Data Reviewed
-
Labs: Labs Reviewed by me
[2023-11-22 16:00] VITALS: BP 137/96
[2023-11-22 17:23] LABS: Glucose - Point of Care 140 mg/dl (70-99)
[2023-11-22] MEDS: LOVENOX 40 MG SC (17:23)
[2023-11-22] MEDS: ATIVAN 0.5 MG IV (17:24)
[2023-11-22] MEDS: NSS (PRESERVATIVE FREE) 0.25 ML IV (17:24)
--- NOTE | 2023-11-22 17:45 | PTCARENOTE ---
Patient getting increasingly more restless, a little agitated, attempting to get OOB. Patient re-directable but forgetful. Chair alarm and medistter in place. PRN ativan administered per order.
[2023-11-22] MEDS: SEROQUEL 25 MG TUBE (21:03)
[2023-11-22] MEDS: REMERON 7.5 MG TUBE (21:03)
[2023-11-22 23:04] VITALS: BP 96/52
[2023-11-23 00:11] LABS: Glucose - Point of Care 104 mg/dl (70-99)
[2023-11-23] MEDS: NOVOLOG FLEXPEN-LOW RESISTANCE SC ×5 (00:39→23:51)
[2023-11-23 06:00] VITALS: BMI 18.0
[2023-11-23 06:09] LABS: Glucose - Point of Care 121 mg/dl (70-99)
[2023-11-23 08:00] VITALS: BP 114/51
[2023-11-23] MEDS: LOPRESSOR 50 MG TUBE ×2 (08:21→20:56)
[2023-11-23] MEDS: NSS (PRESERVATIVE FREE) 10 ML IV ×2 (08:22→20:56)
[2023-11-23] MEDS: LOW STRENGTH ASPIRIN 81 MG TUBE (08:22)
[2023-11-23] MEDS: AUGMENTIN 875 MG/125 MG 1 TABLET TUBE ×2 (08:22→20:56)
[2023-11-23] MEDS: PROTONIX IV 40 MG IV ×2 (08:22→20:55)
[2023-11-23 11:29] LABS: Glucose - Point of Care 108 mg/dl (70-99)
--- NOTE | 2023-11-23 11:45 | W.PN.UPDATE ---
Update Note
Progress Note Update
patient seen chart reviewed. discussed with nursing and dr dimas. patient's good friend donya at bedside. belkys was pleasant . he was seated in a chair at bedside. he remains confused but a few times offered somewhat relevant comments.
friend mentioned he had told her in a very lucid moment that he was tired of living like this. we discussed with mr kay dr dimas's recommendation that workup be continued w spinal tap. i don't know how much he really understood but he was not
opposed to it. i will return this afternoon to talk w and his d who is coming in from [place]. patient did require a prn of ativan and seroquel last evening. mrs kay is not very happy with the seroquel the prn's occurred at 5 and 9 pm
approximately. will increase hs remeron to 15 mg. given friends conversation w patient i do wonder if he is getting depressed. it seems the agitation is often in the eveing eg but the delirium is still present all day. patient was
picking at his gown throughout the period i talked with him. he would speak well articulated words which unfortunately did not make much sense but this still represents overall an improvement will continue to follow
--- NOTE | 2023-11-23 11:47 | W.PN.HOSP.TC ---
Today's Communication/Plan
-
Continue current treatments and supportive care
Assessment / Plan
Assessment / Plan
A/P:
Recurrence aspiration pneumonia:
Improving
Likely a recurrent event aspiration event
WBC 14.4-->normalized
Change IV antibiotics to oral/through PEG and finish course (this time which is his third round and started on 11/15).
Blood cultures no growth from latest cultures on 11/15.
Acute hypoxic respiratory insufficiency:
Resolved
DC vest therapy
Oxygen as needed--> currently on room air
Acute toxic metabolic encephalopathy: Remains confused . Definitely with improved mentation but also some of the cognitive dysfunction.. Psychiatry assisting with agitation.
Encephalopathy fluctuates.
Family and psychiatry agreed to use benzodiazepine first for agitation due to less sedative effects.
Brain MRI no acute abnormality
Etiology multifactorial COVID-19 related encephalopathy and delirium with multiple offending factors during this hospital stay.
Psychiatry on board and managing antipsychotics. Currently on mirtazapine, and Seroquel and Ativan as needed.
Speech therapy reevaluated with VSE but failed. Continue tube feedings. Unfortunately patient pulled tube x 2. Status post PEG replacement at bedside 11/13. Tube check study ok.
cw Nava chair, reorientation , and med for agitation ; needed seroquel , ativan one dose again last night.
With no clear diagnosis of his acute change in mental status/encephalopathy apart from positive COVID on admission ,did discuss about lumbar puncture and the wants to think about it- she wants to hold on it for now.Will follow with her again
today.
Hyperglycemia:
Insulin sliding scale & check blood sugars
Sepsis with bacteremia, Serratia Marcescens Bacteremia-CLABSI/PICC line related versus recurrent aspiration pneumonia:
Stable
Finished course of antibiotics
ID signed off.
Prediabetes mellitus:
Insulin sliding scale while in the hospital
Hemoglobin A1c 5.8
Dysphagia: Patient again pulled out his feeding tube twice. Status post PEG replacement at bedside by GI. Tube check study okay.
Tolerating PEG feedings prior.
TPN discontinued
Status post PEG on 10/30. Reinserted on 11/13
Speech therapy reeval and failed VSE. Continue TF
COVID-19:
Off isolation precautions
Status post treated with 5 days of Paxlovid
Western blot Lyme test came back negative for IgM and positive for IgG.
Urinary retention:
Continue following per urology recommendations due to urethral stricture
Discussed with urology and urology evaluated him and recommend to continue Ford catheter and plan to do void trial as outpatient in the rehab facility.
Continue Ford catheter
Past medical problems:
Essential hypertension
Dyslipidemia
Prediabetes mellitus
TIA/brain infarcts
PVD with carotid stenosis status post left CEA
Prostate cancer
DVT prophylaxis:
Lovenox 40 mg SQ daily
CODE STATUS -DNR
Left a message to his on her voicemail.
Anticipated Discharge: > 48 hours
Subjective/Interval History
-
Date of Service: November 23, 2023
Patient needed Ativan and Seroquel last night for agitation.
This morning is alert and oriented to self but confused. Not following all commands but not agitational. Need constant reorientation.
Objective Data
-
Vital Signs:
Vital Signs
Temp Pulse Resp BP Pulse Ox
97.9 F 73 14 114/57 100
11/23/23 08:00 11/23/23 08:21 11/23/23 08:00 11/23/23 08:21 11/23/23 08:00
I&O
11/22/23 11/23/23 11/24/23
06:59 06:59 06:59
Intake Total 1020 / 1020 960 / 960
Output Total 1200 / 1200 1250 / 1250 375 / 375
Balance -180 / -180 -290 / -290 -375 / -375
Review of Systems
-
Unable to obtain full review of systems at this time due to: Other (Due to cognitive impairment)
Physical Exam
-
General: No Apparent Distress
HEENT: Moist Mucous Membranes
Respiratory: Clear to Auscultation
Cardiac: Regular Rhythm and S1/S2
GI: Soft
Neuro: Awake and Alert; Negative Oriented
Psych: Calm and Confused; Negative Agitated
--- NOTE | 2023-11-23 12:23 | W.PN.PAL2 ---
Today's Communication
-
continue with full restorative care, mental status slowly improving
Assessment / Plan
-
Assessment/Plan:
Based on the current condition, prognosis, comorbidities, patient's goals & wishes as discussed above, the palliative care team has made the following recommendations:Not at
Encounter for Palliative Care
- continues to want full restorative care, feels he is improving. Daughter to come from [place] this week. Not at bedside at time of visit.
- considering LP for further mental status workup
- psych following - PRN ativan and seroquel
- will follow
The above recommendations were discussed with the patient/family and medical team.
Reason for Admission
Illness Course/HPI
Seen at bedside this AM for follow up. Awake and alert, confused conversation. Required PRNs of ativan and seroquel last night. Per chart review, feels patient improving and not interested in considering hospice. Team recommending lumbar
puncture for further workup, considering this. Daughter coming from [place] this week.
Objective Data
-
Objective Data:
Vital Signs
Temp Pulse Resp BP Pulse Ox
97.9 F 73 14 114/57 100
11/23/23 08:00 11/23/23 08:21 11/23/23 08:00 11/23/23 08:21 11/23/23 08:00
Laboratory Results
11/22/23 09:28
11/22/23 09:28
PT 14.5 Sec (11.4-14.6) 10/27/23 08:56
INR 1.12 10/27/23 08:56
Hemoglobin A1c 5.8 % (4.0-5.6) H 10/17/23 08:59
Total Protein 5.5 g/dl (6.3-8.2) L 11/16/23 08:47
Albumin 3.1 g/dl (3.5-5.0) L 11/16/23 08:47
Urine Color Yellow 11/01/23 20:48
Urine Clarity Clear (Clear) 11/01/23 20:48
Urine pH 6.0 (5.0-9.0) 11/01/23 20:48
Ur Specific [place] 1.025 (<1.030) 11/01/23 20:48
Urine Ketones Negative (Negative) 11/01/23 20:48
Urine Bilirubin Negative (Negative) 11/01/23 20:48
Palliative Performance Scale
Palliative Performance Scale:
PPS Level Ambulation Activity & Evidence of Disease Self Care Intake Conscious Level
100% Full Normal Activity & Work; Full Intake Full
No Evidence of Disease
90% Full Normal Activity & Work; Full Normal Full
Some Evidence of Disease
80% Full Normal Activity with Effort Full Normal or Full
Some Evidence of Disease Reduced
70% Reduced Unable Normal Job/Work Full Normal or Full
Significant Disease Reduced
60% Reduced Unable Hobby/Housework Occasional Normal or Full or Confusion
Significant Disease Assistance Reduced
50% Mainly Sit/Lie Unable to do Any Work Considerable Normal or Full or Confusion
Extensive Disease Assistance Req'd Reduced
40% Mainly in Bed Unable to do Most Activity Mainly Assistance Normal or Full or Drowsy;
Extensive Disease Reduced +/- Confusion
30% Totally Bed Unable to do Any Activity Total Care Normal or Full or Drowsy;
Bound Extensive Disease Reduced +/- Confusion
20% Totally Bed Bound Unable to do Any Activity Total Care Minimal to Full or Drowsy;
Extensive Disease Sips +/- Confusion
10% Totally Bed Bound Unable to do Any Activity Total Care Mouth Care Drowsy or Coma;
Extensive Disease Only +/- Confusion
0%
PPS Score Level:
Palliative Performance Scale:
PPS Level Ambulation Activity & Evidence of Disease Self Care Intake Conscious Level
100% Full Normal Activity & Work; Full Intake Full
No Evidence of Disease
90% Full Normal Activity & Work; Full Normal Full
Some Evidence of Disease
80% Full Normal Activity with Effort Full Normal or Full
Some Evidence of Disease Reduced
70% Reduced Unable Normal Job/Work Full Normal or Full
Significant Disease Reduced
60% Reduced Unable Hobby/Housework Occasional Normal or Full or Confusion
Significant Disease Assistance Reduced
50% Mainly Sit/Lie Unable to do Any Work Considerable Normal or Full or Confusion
Extensive Disease Assistance Req'd Reduced
40% Mainly in Bed Unable to do Most Activity Mainly Assistance Normal or Full or Drowsy;
Extensive Disease Reduced +/- Confusion
30% Totally Bed Unable to do Any Activity Total Care Normal or Full or Drowsy;
Bound Extensive Disease Reduced +/- Confusion
20% Totally Bed Bound Unable to do Any Activity Total Care Minimal to Full or Drowsy;
Extensive Disease Sips +/- Confusion
10% Totally Bed Bound Unable to do Any Activity Total Care Mouth Care Drowsy or Coma;
Extensive Disease Only +/- Confusion
0%
PPS Score Level: 30
Physical Exam
-
General: Appears Chronically Ill
HEENT: Normocephalic
Respiratory: Clear to Auscultation
Cardiac: Regular Rhythm
Peripheral Vascular: No Edema
GI: Soft
Skin: Warm
Neuro: Awake and Alert
Psych: Confused
Care Reviewed
Data Reviewed
Medical Tests: I reviewed
Time
Start Date: 11/23/23
Start Time: 12:10
Stop Date: 11/23/23
Stop Time: 12:45
Time Spent:
35 minutes >50% on counseling and coordination of care
--- NOTE | 2023-11-23 12:27 | CM ---
Patient seen in room with Terese.
Terese states she prefers calls on her cell phone. Does not want calls on land line.
small package and bundle sorter clerk aware and will have the change in contacts.
Terese does not wish to discuss options of SNF at this time.
Palliative following patient. not interested in hospice.
Daughter to fly home this week from [place].
PLAN: Palliative care at this time, PT recommends SNF- did not wish to discuss at this time.
[2023-11-23 15:06] VITALS: BP 153/69
[2023-11-23] MEDS: ATIVAN 0.5 MG IV ×2 (16:49→23:51)
[2023-11-23 16:58] LABS: Glucose - Point of Care 112 mg/dl (70-99)
[2023-11-23] MEDS: LOVENOX 40 MG SC (17:37)
[2023-11-23] MEDS: REMERON 15 MG TUBE (20:58)
[2023-11-23] MEDS: NSS (PRESERVATIVE FREE) 0.25 ML IV (23:50)
[2023-11-23 23:51] LABS: Glucose - Point of Care 135 mg/dl (70-99)
[2023-11-23 23:55] VITALS: BP 139/58
[2023-11-24 05:50] VITALS: BMI 18.2
[2023-11-24 06:20] LABS: Glucose - Point of Care 129 mg/dl (70-99)
[2023-11-24] MEDS: NOVOLOG FLEXPEN-LOW RESISTANCE SC ×3 (06:21→18:25)
[2023-11-24 07:42] VITALS: BP 147/58
[2023-11-24] MEDS: LOPRESSOR 50 MG TUBE ×2 (08:34→22:25)
[2023-11-24] MEDS: PROTONIX IV 40 MG IV ×2 (08:35→22:25)
[2023-11-24] MEDS: LOW STRENGTH ASPIRIN 81 MG TUBE (08:35)
[2023-11-24] MEDS: AUGMENTIN 875 MG/125 MG 1 TABLET TUBE ×2 (08:35→22:25)
[2023-11-24] MEDS: NSS (PRESERVATIVE FREE) 10 ML IV ×2 (08:35→22:25)
--- NOTE | 2023-11-24 10:03 | PTCARENOTE ---
pt aaox1 for this nurse this AM. pt tolerating tube feeds jevity 1.5 @ 55ml/hr with flush. pt continues to remain on medsitter. daughter and son-in-law just appeared at bedside. made aware. goodwin catheter remains intact and in place at this time.
speech working at bedside at this time
[2023-11-24 10:18] LABS: Hematocrit 30.7 % (39.0-52.0); Hemoglobin 10.2 g/dL (13.0-18.0); Mean Corp Hgb Conc. 33.2 g/dL (33.0-37.0); Mean Corpuscular Volume 99.4 fL (80.0-94.0); Mean Platelet Volume 10.2 fL (7.4-10.4); Platelet Count 322 10^3/uL (130-400); Red Blood Cell Count 3.09 10^6/uL (4.70-6.10); Red Cell Dist. Width 13.4 % (11.5-14.5); White Blood Cell Count 6.9 10^3/uL (4.8-10.8)
[2023-11-24 10:19] LABS: Blood Urea Nitrogen 20 mg/dl (9-20); Calcium 8.5 mg/dl (8.4-10.2); Carbon Dioxide 27 mmol/L (22-30); Chloride 101 mmol/L (98-107); Estimated Creatinine Clearance 72 ml/min; Glucose 142 mg/dl (70-99); Potassium 4.3 mmol/L (3.5-5.1); Sodium 138 mmol/L (135-145); eGFR > 60.00
--- NOTE | 2023-11-24 11:34 | W.PN.UPDATE ---
Update Note
Progress Note Update
patient seen chart reviewed. daughter at bedside. she was here much of the night. she describes father had some moments of agitation last evening which responded to ativan although he did not get much sleep. she just arrived from [place] and we spent
some time talking about his hospital stay. she does describe him as a very hyper person reinforcing my thought about that hyperactivity being superimposed on a lengthy delirium and perhaps arguing for use of depakote here for mood stabilization and
help w agitation given 's concerns re june will talk w patient later today. spoke with dr dimas as well who informed me that is thinking at this point re spinal tap. also discussed this w d. no changes made in meds. will follow
[2023-11-24 11:59] LABS: Glucose - Point of Care 119 mg/dl (70-99)
[2023-11-24 13:05] VITALS: BP 137/57
--- NOTE | 2023-11-24 13:09 | W.PN.HOSP.TC ---
Today's Communication/Plan
-
Await neuro input
CW with agiation management.
Assessment / Plan
Assessment / Plan
A/P:
Recurrence aspiration pneumonia:
Likely a recurrent event aspiration event
WBC 14.4-->normalized
Change IV antibiotics to oral/through PEG and finish course- last day today (this time which is his third round and started on 11/15).
Blood cultures no growth from latest cultures on 11/15.
Acute hypoxic respiratory insufficiency:
Resolved
DC vest therapy
currently on room air
Acute toxic metabolic encephalopathy: Remains confused . Definitely with improved mentation but also some of the cognitive dysfunction.. Psychiatry assisting with agitation.
Encephalopathy fluctuates.
Family and psychiatry agreed to use benzodiazepine first for agitation due to less sedative effects.
Brain MRI no acute abnormality
Etiology multifactorial COVID-19 related encephalopathy and delirium with multiple offending factors during this hospital stay.
Psychiatry on board and managing antipsychotics. Currently on mirtazapine, and Seroquel and Ativan as needed.
Speech therapy reevaluated with VSE but failed. Continue tube feedings. Unfortunately patient pulled tube x 2. Status post PEG replacement at bedside 11/13. Tube check study ok.
cw Nava chair, reorientation , and med for agitation ; needed seroquel , ativan one dose again last night.
With no clear diagnosis of his acute change in mental status/encephalopathy apart from positive COVID on admission ,did discuss about lumbar puncture and the wants to think about it- she wants to talk to Neuro prior to LP.
Neuro was notified yesterday about evaluation.
Hyperglycemia:
Insulin sliding scale & check blood sugars
Sepsis with bacteremia, Serratia Marcescens Bacteremia-CLABSI/PICC line related versus recurrent aspiration pneumonia:
Stable
Finished course of antibiotics
ID signed off.
Prediabetes mellitus:
Insulin sliding scale while in the hospital
Hemoglobin A1c 5.8
Dysphagia: Patient again pulled out his feeding tube twice. Status post PEG replacement at bedside by GI. Tube check study okay.
Tolerating PEG feedings prior.
TPN discontinued
Status post PEG on 10/30. Reinserted on 11/13
Speech therapy reeval and failed VSE. Continue TF
COVID-19:
Off isolation precautions
Status post treated with 5 days of Paxlovid
Western blot Lyme test came back negative for IgM and positive for IgG.
Urinary retention:
Continue following per urology recommendations due to urethral stricture
Discussed with urology and urology evaluated him and recommend to continue Ford catheter and plan to do void trial as outpatient in the rehab facility.
Continue Ford catheter
Past medical problems:
Essential hypertension
Dyslipidemia
Prediabetes mellitus
TIA/brain infarcts
PVD with carotid stenosis status post left CEA
Prostate cancer
DVT prophylaxis:
Lovenox 40 mg SQ daily
CODE STATUS -DNR
Discussed with daughter who arrived from [place].
She noticed over the last 2 years that his cognition and ability has changed. He is forgetful , he gets mixed up at times. He has been writing things down to remember as he is a getting forgetful. No agitation or cognitive impaired has he is now.
Anticipated Discharge: > 48 hours
Subjective/Interval History
-
Date of Service: November 24, 2023
Remains alert but confused.
Daughter arrived from [place]-states he is confused. Yesterday he could recognize her ,but not today.
Objective Data
-
Labs:
Laboratory Results
11/24/23
09:01
WBC 6.9
Hgb 10.2 L
Hct 30.7 L
Plt Count 322
Sodium 138
Potassium 4.3
Chloride 101
Carbon Dioxide 27
BUN 20
Creatinine 0.6 L
Glucose 142 H
Calcium 8.5
Vital Signs:
Vital Signs
Temp Pulse Resp BP Pulse Ox
96.5 F L 70 20 137/57 99
11/24/23 13:05 11/24/23 13:05 11/24/23 13:05 11/24/23 13:05 11/24/23 13:05
I&O
11/23/23 11/24/23 11/25/23
06:59 06:59 06:59
Intake Total 960 / 960 960 / 960
Output Total 1250 / 1250 1974
Balance -290 / -290 -1015 / -1015
Review of Systems
-
Unable to obtain full review of systems at this time due to: Other (Cognitive impairment)
Physical Exam
-
General: No Apparent Distress
HEENT: Moist Mucous Membranes
Respiratory: Clear to Auscultation and Non Labored Respirations; Negative Accessory Resp Muscle Use
Cardiac: Regular Rhythm and S1/S2
GI: Soft
Neuro: Awake, Alert and Oriented (self); Negative Tremors
Psych: Calm and Confused; Negative Agitated (currently)
Data Reviewed
-
Labs: Labs Reviewed by me
[2023-11-24 15:15] VITALS: BP 144/77
--- NOTE | 2023-11-24 16:21 | CM ---
Patient seen today in [facility]. present.
states 'not a good day' for patient.
Discussed again the case management role & offered support.
She stated patient going to have more testing.
PT was going to see the patient today.
PLAN: PT recommending SNF
[2023-11-24] MEDS: LOVENOX 40 MG SC (17:00)
[2023-11-24 18:24] LABS: Glucose - Point of Care 122 mg/dl (70-99)
[2023-11-24] MEDS: ATIVAN 0.5 MG IV (18:26)
[2023-11-24] MEDS: NSS (PRESERVATIVE FREE) 0.25 ML IV (18:26)
--- NOTE | 2023-11-24 18:40 | PTCARENOTE ---
ativan given prn for this patient after multiple attempts to redirect patient. pt was walked around nurses station, wheeled around unit, and family brought distractive bedside materials to keep patient preoccupied throughout the shift. for majority
of the shift patient was redirectable. 1800 pt was very agitated shaking and pounding on table, trying to hop out of chair. pt given prn ativan and is now calm within the room
[2023-11-24] MEDS: REMERON 15 MG TUBE (22:26)
[2023-11-24 23:55] LABS: Glucose - Point of Care 109 mg/dl (70-99)
--- NOTE | 2023-11-25 00:15 | PTCARENOTE ---
Patient was restless and uncooperative; unable to be redirected; he pulled out his goodwin cath; Will DYE notified; orders obtained for b/l wrist restraints; patient is tolerating restraints; new goodwin cath 16F inserted without issue; patient
appears comfortable; will continue to monitor.
[2023-11-25] MEDS: NOVOLOG FLEXPEN-LOW RESISTANCE SC ×3 (00:29→18:11)
[2023-11-25] MEDS: ATIVAN 0.5 MG IV ×3 (01:02→22:03)
[2023-11-25] MEDS: NSS (PRESERVATIVE FREE) 0.25 ML IV ×3 (01:02→22:04)
[2023-11-25 06:00] VITALS: BMI 17.9
[2023-11-25 06:28] LABS: Glucose - Point of Care 123 mg/dl (70-99)
[2023-11-25 07:05] VITALS: BP 159/65
[2023-11-25] MEDS: NSS (PRESERVATIVE FREE) 10 ML IV ×2 (08:50→20:35)
[2023-11-25] MEDS: PROTONIX IV 40 MG IV ×2 (08:50→20:35)
[2023-11-25] MEDS: LOPRESSOR 50 MG TUBE ×2 (08:50→20:27)
[2023-11-25] MEDS: LOW STRENGTH ASPIRIN 81 MG TUBE (08:50)
--- NOTE | 2023-11-25 10:16 | PTCARENOTE ---
when assessing patient this morning he was restless and agitated. this nurse freed the right hand and gave patient magazine for redirection. pt was okay with this until ripping apart. pt is now calm and no longer restrained to bed. pt is sleeping at
this time. pt stated being hot, temperature decreased in room and patient is now more comfortable. pt passing gas but no bowel movement at this time. tube feeds continue to go at 55ml/hr with a 25ml flush.
--- NOTE | 2023-11-25 10:35 | PN.CDI ---
CDI
- -
CDI:
Physician Documentation Request
Admit Date: 10/17/23 17:23
Dear Doctor Rakesh,
Clinical Indicators:
Patient admitted with COVID 19 and TME.
10/30 PEG placed; multiple disruptions in feeding due to patient agitation/pulling feeding tube out.
BMI 17.8
11/23 note/assessment:'Pt meets ASPEN criteria for severe protein calorie malnutrition of chronic illness with >5% wt loss x 1 month admission, prolonged inadequate energy intake <75% for >1month, severe muscle loss (quads, calf) and mod
subcutaneous fat loss (orbital).'
Based on the above information and your assessment, which of the following most accurately represents the patient's nutritional status?
Severe Protein Calorie Malnutrition
Moderate Protein Calorie Malnutrition
Other (please specify)
[place] Criteria ([facility] 2017)
2 or more criteria must be present for either
non severe or severe malnutrition
Note that the criteria differs related to the
presence of an acute or chronic illness
Acute Illness Chronic Illness
Energy Intake Non Severe: <75% for >7 days Non Severe: <75% for >1 month
Severe: <50% for >5 days Severe: <75% for >1 month
Weight Loss Non Severe: 1-2% over 1 week Non Severe: 5% over 1 month
5% over 1 month 7.5% over 3 months
7.5% over 3 months 10% over 6 months
1 year N/A 20% over 1 year
Severe: >2% over 1 week Severe: >5% over 1 month
>5% over 1 month >7.5% over 3 months
>7.5% over 3 months >10% over 6 months
1 year N/A >20% over 1 year
Body Fat Non Severe: Mild Decrease Non Severe: Mild Loss
Severe: Moderate Decrease Severe: Severe Loss
Muscle Mass Non Severe: Mild Decrease Non Severe: Mild Loss
Severe: Moderate Decrease Severe: Severe Loss
Fluid Accumulation Non Severe: Mild Accumulation Non Severe: Mild Accumulation
Severe: Moderate to severe Severe: Moderate to severe
accumulation accumulation
Reduced Osteopathic Medicine Teacher Strength Non Severe: N/A Non Severe: N/A
Severe: Measurably reduced Severe: Measurably reduced
Additional criteria that can be used to Determine if Mild or Moderate Malnutrition (Merck Manual 2018)
Mild Moderate Severe
Albumin gm/dl <3.0 gm/dl <2.5 gm/dl <2.0 gm/dl
Pre Albumin mg/dl <15 gm/dl <10 mg/dl <5.0 mg/dl
BMI <18.5 <17 <16
Use of terms such as suspected, likely, concern for, or probable (associated with a specific diagnosis that is being evaluated, monitored, or treated as if it exists) are acceptable and can be coded in the inpatient setting, when documented at the
time of discharge.
Thank you,
Idania Ortega RN BSN
CDI Specialist
available via tiger text
Please use your independent medical judgment in providing your response.
[2023-11-25 12:38] LABS: Glucose - Point of Care 158 mg/dl (70-99)
--- NOTE | 2023-11-25 12:41 | W.PN.NEURO.1 ---
Today's Communication / Plan
-
Continue supportive care
Fluid and nutritional support
Consider LP if pat cooperative: will need sedation for positioning and prevention of injury during procedure
Consider Aricept 5mg
Neuro Assessment/Plan
Assessment
78 male with h/o dementia right carotid stenosis presenting with confusion and generalized weakness who was admitted with COVID-19 and aspiration pneumonia. Exam reveals significant cognitive impairment, without focal cranial nerve or motor deficits
Nonfocal neurologic examination not highly suggestive of a right sided symptomatic carotid
Symptomatic COVID contributing to his confusion with toxic metabolic encephalopathy, with baseline history of dementia
Plan
Outpatient neuropsychological testing
May discontinue additional thiamine
NO benefit from additional testing ie EEG lumbar puncture at this time
Will follow as needed.
Subjective/Objective
Subjective Data
Date of Service: November 25, 2023
Mr. Wallace continues to be confused disoriented with significant cognitive issues. Speech is tangential and incoherent. Occasionally answers questions appropriately. Able to give me his name and date of
Objective Data
Vital Signs
Temp Pulse Resp BP Pulse Ox
96.5 F L 70 20 137/57 99
11/24/23 13:05 11/24/23 13:05 11/24/23 13:05 11/24/23 13:05 11/24/23 13:05
Lab Results
11/24/23 09:01
11/24/23 09:01
PT 14.5 Sec (11.4-14.6) 10/27/23 08:56
INR 1.12 10/27/23 08:56
Sodium 138 mmol/L (135-145) 11/24/23 09:01
Potassium 4.3 mmol/L (3.5-5.1) 11/24/23 09:01
BUN 20 mg/dl (9-20) 11/24/23 09:01
Glucose 142 mg/dl (70-99) H 11/24/23 09:01
Calcium 8.5 mg/dl (8.4-10.2) 11/24/23 09:01
Phosphorus 3.5 mg/dl (2.5-4.5) 11/14/23 07:38
Usd-J-Hlarfgviiil Pept 907 pg/ml 11/16/23 08:47
LDL Cholesterol, Calc 36 mg/dl 10/18/23 04:14
Vitamin B12 494 pg/ml (239-931) 10/18/23 04:14
Patient Allergies
Sulfa (Sulfonamide Antibiotics) Allergy (Verified 08/28/18 06:05)
Unknown
Review of Systems
-
Unable to obtain full review of systems at this time due to: Dementia
Physical Exam
-
General: Well Developed, Well Nourished, No Apparent Distress and Comfortable
Eyes: Able to visualize OU, Unremarkable, Round OU and No Ptosis
HEENT: Normocephalic, Atraumatic and Anicteric
Neck: No Bruits Bilaterally and Full Range of Motion
Respiratory: Clear to Auscultation
Cardiac: Regular Rhythm
GI: Normal Bowel Sounds
Skin: Unremarkable
Extremities: No Clubbing
Psych: Confused and Apparent Dementia
Extended Neurological Exam
Mood & Affect: Mood Unremarkable and Affect Unremarkable
Attention Span & Concentration: Awake, Interactive and Severe Difficulty with 2 Step Request
Memory: Unable to Recall, Vague and Incomplete Historian
Tremor: Hand Tremor Absent and Head Tremor Absent
Involuntary Movement: None
Speech: Mildly Reduced Output and Variable
Cranial Nerve II: Left Eye: Pupillary Reactivity Unremarkable, Pupillary Size Unremarkable and Visual Michael Grossly Intact
Cranial Nerve II: Right Eye: Pupillary Reactivity Unremarkable, Pupillary Size Unremarkable and Visual Michael Grossly Intact
Cranial Nerves III, IV, : Extraocular Movement: Extraocular Movement Full in all Directions
Cranial Nerve V: Facial Sensation: Intact to Light Touch
Cranial Nerve VII: Facial Symmetry: Normal Facial Symmetry
Cranial Nerve VIII: Hearing: Grossly Reduced
Cranial Nerves IX, X: Palate Movement: Palate Elevation Symmetric
Cranial Nerve XI: Shoulder Shrug: Unremarkable
Cranial Nerve XII: Tongue Protusion: Midline
Muscle Strength, Overall: Reduced Throughout
Muscle Bulk & Tone: Decreased Bulk
Pronator Drift: No Drift in Upper Extremities and No Drift in Lower Extremities
Deep Tendon Reflexes: Trace Throughout
Cold Sensation: Reduced
Vibration Sensation: Reduced
Touch Sensation: Pin Prick Reduced
Coordination: Unable to Assess
Babinski Sign: Absent Bilaterally
Gait & Station: Unable to Assess
Modified Montezuma Score (MRS)
-
Modified Montezuma Scale (mRS): Moderately severe disability. Unable to attend to bodily needs/walk.
Score: 4
[2023-11-25] MEDS: NOVOLOG FLEXPEN-LOW RESISTANCE 1 UNITS SC (12:54)
[2023-11-25] MEDS: THERAGRAN 1 TABLET PO (14:10)
--- NOTE | 2023-11-25 14:48 | CM ---
Patient for LP today.
CM met with patient's daughter Paulina & her Naveen (here from [place]). They requested information regarding SNF options. CM gave list of SNF's. Discussion also regarding SNF not accepting patients with restraints, medsitter for 24 hr.
Medicare.gov care compare site given. She will let CM know [facility] PT note 11/23 ambulated patient 30 ft x 2 with no device mod assist of 2. Recommended SNF.
PLAN: Discharge when medically stable SNF.
[2023-11-25 15:00] VITALS: BP 142/53
--- NOTE | 2023-11-25 15:16 | W.PN.HOSP.TC ---
Today's Communication/Plan
-
Diagnostic LP today
Assessment / Plan
Assessment / Plan
A/P:
Recurrence aspiration pneumonia:
Likely a recurrent event aspiration event
WBC 14.4-->normalized
Change IV antibiotics to oral/through PEG and finished abx course- last day 11/23 (this time which is his third round and started on 11/15).
Blood cultures no growth from latest cultures on 11/15.
Acute hypoxic respiratory insufficiency:
Resolved
DC vest therapy
currently on room air
Acute toxic metabolic encephalopathy: Remains confused . Definitely with improved mentation but also some of the cognitive dysfunction.. Psychiatry assisting with agitation.
Encephalopathy fluctuates.
Family and psychiatry agreed to use benzodiazepine first for agitation due to less sedative effects.
Brain MRI no acute abnormality
Etiology multifactorial COVID-19 related encephalopathy and delirium with multiple offending factors during this hospital stay.
Psychiatry on board and managing antipsychotics. Currently on mirtazapine, and Seroquel and Ativan as needed.
Speech therapy reevaluated with VSE but failed. Continue tube feedings. Unfortunately patient pulled tube x 2. Status post PEG replacement at bedside 11/13. Tube check study ok.
cw Nava chair, reorientation , and med for agitation ; needed seroquel , ativan one dose again last night.
With no clear diagnosis of his acute change in mental status/encephalopathy apart from positive COVID on admission ,did discuss about lumbar puncture and now and daughter are in agreement for diagnositic LP. IR consulted.
Hyperglycemia:
Insulin sliding scale & check blood sugars
Sepsis with bacteremia, Serratia Marcescens Bacteremia-CLABSI/PICC line related versus recurrent aspiration pneumonia:
Stable
Finished course of antibiotics
ID signed off.
Prediabetes mellitus:
Insulin sliding scale while in the hospital
Hemoglobin A1c 5.8
Dysphagia: Patient again pulled out his feeding tube twice. Status post PEG replacement at bedside by GI. Tube check study okay.
Tolerating PEG feedings prior.
TPN discontinued
Status post PEG on 10/30. Reinserted on 11/13
Speech therapy reeval and failed VSE. Continue TF
COVID-19:
Off isolation precautions
Status post treated with 5 days of Paxlovid
Western blot Lyme test came back negative for IgM and positive for IgG.
Urinary retention:
Continue following per urology recommendations due to urethral stricture
Discussed with urology and urology evaluated him and recommend to continue Ford catheter and plan to do void trial as outpatient in the rehab facility.
Continue Ford catheter
Past medical problems:
Essential hypertension
Dyslipidemia
Prediabetes mellitus
TIA/brain infarcts
PVD with carotid stenosis status post left CEA
Prostate cancer
DVT prophylaxis:
Lovenox 40 mg SQ daily
CODE STATUS -DNR
Discussed with daughter again today.
Per prior discussion withher ,She noticed over the last 2 years that his cognition and ability has changed. He is forgetful , he gets mixed up at times. He has been writing things down to remember as he is a getting forgetful. No agitation or
cognitive impaired has he is now.
Anticipated Discharge: > 48 hours
Subjective/Interval History
-
Date of Service: November 25, 2023
Remains confused. Requiring agitation treatments especially later part of this evening and in the night.
He pulled his Ford catheter out yesterday which is back in now.
Objective Data
-
Vital Signs:
Vital Signs
Temp Pulse Resp BP Pulse Ox
97.6 F 81 16 159/65 100
11/25/23 07:05 11/25/23 07:05 11/25/23 07:05 11/25/23 07:05 11/25/23 07:05
I&O
11/24/23 11/25/23 11/26/23
06:59 06:59 06:59
Intake Total 960 / 960 1920 / 1919
Output Total 1974 1425 / 1425
Balance -1015 / -1015 495 / 495
Review of Systems
-
Unable to obtain full review of systems at this time due to: Other (Cognitive impairment)
Physical Exam
-
General: Comfortable
HEENT: Moist Mucous Membranes
Respiratory: Non Labored Respirations; Negative Accessory Resp Muscle Use
Cardiac: Regular Rhythm and S1/S2
GI: Soft and Peg Tube
Neuro: Awake and Alert; Negative Oriented
Psych: Calm and Confused; Negative Agitated (during my visit)
--- NOTE | 2023-11-25 15:55 | PTCARENOTE ---
tube feeds paused per MD prior to LP, to go down with to consent. new IV access inserted in L forearm, and prn ativan given prior to going down. goodwin emptied for yellow 650ml urine. psych in the room at this time.
--- NOTE | 2023-11-25 16:05 | W.PN.UPDATE ---
Update Note
Progress Note Update
patient seen chart reviewed. spoke at length with and daughter. son in law also present asking ? the patient did not have a great last evening. he had several periods of increasingly restless and agitated behavior. he received two ativan prns
one around 6:26 pm and one around one am. i informed that dr meyers had prescribed aricept. she became upset and said this had been suggested but it interacted negatively with his other medications. will stop it now as i don't think it will
provide much help w current delirium also expressed concern that the increase in remeron may be agitating him. i do not believe this is the case however after much discussion will be starting a trial of depakote for his agitation given on a
scheduled basis for reasons discussed in elsewhere in my notes. will begin with 250 mg bid and monitor level. will cut remeron back to prior dose of 7.5 mg q hs ( it can have a anticholinergic rebound so better to taper) and make a decision as to
whether to continue it depending on how things go. check depakote level on tuesday. patient was calm as we talked about him. at one point i thought he actually asked 'what causes delirium?' which i did explain to him. most of his other comments
which he would calmly make during our at least 30 minute discussion with his family did not really make logical sense although an effort was made to try to discern what he was asking and make a response will continue to follow
[2023-11-25 16:15] VITALS: BP 140/64; BP_SYST 70
[2023-11-25 17:15] VITALS: BP 148/64; BP_SYST 69
[2023-11-25 17:26] VITALS: BP 148/64
[2023-11-25] MEDS: LOVENOX 40 MG SC (17:52)
[2023-11-25 18:00] LABS: Spinal Fluid Glucose 68 mg/dl (40-70); Spinal Fluid Protein 100 mg/dl (12-60)
[2023-11-25 18:09] LABS: Glucose - Point of Care 95 mg/dl (70-99)
[2023-11-25 18:44] LABS: CSF Clarity Clear; CSF Color Colorless; CSF Tube # 1; Red Cell Count/CSF 196 mm^3
[2023-11-25 18:45] LABS: CSF Color Colorless; CSF Tube # 4; CSF Tube # Clarity Clear; Spinal Fluid Granulocytes 4 %; Spinal Fluid Lymphocytes 66 %; Spinal Fluid Macrophages 30 %; White Cell Count/CSF 21 mm^3 (0-5)
[2023-11-25 18:46] LABS: CSF Granulocytes 0 %; CSF Lymphocytes 70 %; Red Cell Count/CSF 11 mm^3; Spinal Fluid Macrophages 30 %; White Blood Cell Count/CSF 10 mm^3 (0-5)
[2023-11-25] MEDS: DEPAKENE 250 MG TUBE (20:27)
[2023-11-25] MEDS: REMERON 7.5 MG TUBE (21:48)
[2023-11-25 23:06] VITALS: BP 135/65
[2023-11-25 23:57] LABS: Glucose - Point of Care 139 mg/dl (70-99)
[2023-11-26] MEDS: NOVOLOG FLEXPEN-LOW RESISTANCE SC ×5 (00:02→23:48)
[2023-11-26 05:41] VITALS: BMI 17.7
[2023-11-26 06:31] LABS: Glucose - Point of Care 133 mg/dl (70-99)
[2023-11-26 07:00] VITALS: BP 105/46
--- NOTE | 2023-11-26 09:12 | W.PN.ID1 ---
Date of Service
Date of Service: November 26, 2023
Today's Communication
See below�
Assessment / Plan
# Ongoing Encephalopathy
# Recurrent aspiration pneumonia
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
# Dysphagia; s/p PEG 10/31/23
- Peg pulled / dislodged several times/replaced
# Urinary retention requiring goodwin
# s/p Symptomatic COVID infection
- Symptom onset 10/14 evening
- s/p 5-day course of Paxlovid
- S/p 10d isolation
#Additional Past Medical History:
Hx dementia
Hypertension
Dyslipidemia
TIA
Left cerebellar chronic infarcts
Carotid stenosis s/p Left CEA
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
Prostate cancer status post prostatectomy
Heel, wrist and pelvis repair 1967
At present, etiology of ongoing encephalopathy not clear.
?Progression of underlying dementia, ?post-covid, ?other infection, ?non-infectious
- CSF noted to have a very low degree of pleocytosis, although protein noted to be elevated (somewhat nonspecific)
Will check ESR, CRP, RPR, QuantiFERON TB Gold.
May consider repeat MRI (last one performed on 10/19/2023) and/or EEG
Meningitis panel negative, including VZV and HSV. No history of significant outdoor exposure making West Nile and eastern equine encephalopathy highly unlikely.
����������������������������������������������������������
Chief Complaint
-: Other (Encephalopathy)
Subjective / Review of Systems
Asked to reevaluate patient given ongoing encephalopathy. Patient previously followed by Infectious Diseases, with the last visit on 11/14/2023. Patient has had ongoing encephalopathy since admission.
Vital Signs / Physical Exam
Vital Signs
Vital Signs
Temp Pulse Resp BP Pulse Ox
97.4 F 65 16 105/46 96
11/26/23 07:00 11/26/23 07:00 11/26/23 07:00 11/26/23 07:00 11/26/23 07:00
Physical Exam
Constitutional: Comfortable, Chronically Ill and Non-toxic
Eyes: Pupils Equal and Sclera Anicteric
Cardiovascular: S1/S2; Negative S3/S4
Pulmonary: Non Labored; Negative Wheezes or Rales
Gastrointestinal: Soft and Other (PEG tube in place. Abdominal binder in place.)
Extremities: Negative Edema, Cyanosis or Erythema
Neurological: Other (Somnolent. Minimally arousable.)
Objective Data
Lab Data
Lab Results
11/24/23 09:01
11/24/23 09:01
PT 14.5 Sec (11.4-14.6) 10/27/23 08:56
INR 1.12 10/27/23 08:56
Estimated Creat Clear 72 ml/min 11/24/23 09:01
Lactic Acid 1.0 mmol/L (0.7-2.0) 11/16/23 08:47
Total Bilirubin 0.6 mg/dl (0.2-1.3) 11/16/23 08:47
AST 25 U/L (17-59) 11/16/23 08:47
ALT 36 U/L (0-50) 11/16/23 08:47
Alkaline Phosphatase 103 U/L (38-126) 11/16/23 08:47
C-Reactive Protein 47.30 mg/L (0.0-10.00) H 11/16/23 08:47
Most recent labs reviewed.
Micro Results:
11/25/23 17:03 Fungal Culture - Preliminary
Csf Culture in progress.
Positive cultures are reported as soon as detected.
Final report to follow in four to five weeks.
11/25/23 17:03 Meningitis/Encephalitis Panel (PCR) - Final
Csf
11/25/23 17:03 CSF Culture - Pending
Csf Gram Stain - Preliminary
11/16/23 09:27 Blood Culture - Final
Blood/Venous No Growth - Final Report
11/16/23 08:48 Blood Culture - Final
Blood/Venous No Growth - Final Report
11/01/23 11:22 Blood Culture - Final
Blood/Venous Serratia marcescens
Gram Stain - Final
11/01/23 20:48 Blood Culture - Final
Blood/Venous No Growth - Final Report
11/01/23 20:48 Urine Culture - Final
Urine NO GROWTH
10/18/23 10:33 Blood Culture - Final
Blood/Venous No Growth - Final Report
10/18/23 18:21 Urine Culture - Final
Urine NO GROWTH
10/16/23 12:56 Urine Culture - Final
Urine NO GROWTH
11/25/2023 Lumbar puncture
CSF Cell Count - - -
CSF Tube # - 1 4 - -
CSF Color - Colorless - -
CSF Clarity - Clear - -
- - -
CSF RBC Count - 196 11 - - mm^3
- - -
CSF WBC Count - 21 10 - *H - 0-5 mm^3
CSF Granulocyte - 4 0 - - %
CSF Lymphocytes - 66 70 - - %
CSF Macrophages - 30 30 - - %
- - -
CSF Protein - 100 - -
CSF Glucose - 68 - -
Imaging:
10/22/2023 CXR (portable): Moderate opacification of the right infrahilar region and mid right lower lung field concerning for developing pneumonia. A tiny left pleural effusion is noted. No pneumothorax seen.
10/16/23 CXR: No acute cardiopulmonary process.
10/17/23 Vascular US: Right carotid: Extensive atherosclerotic disease with peak systolic velocity within the proximal ICA measuring 616 cm/s. Elevated end-diastolic velocity and ICA/CCA ratio compatible with a greater than 70% stenosis. Left
carotid: Mild calcified plaque/intimal thickening within the bulb proximal ICA causing less than 50% luminal narrowing.
10/18/23 CXR: There are new areas of airspace disease in both lower lobes, left greater than right. Findings suggest pneumonia.
10/19/23 Brain MRI: No acute intracranial abnormality. Prior small infarcts within the left cerebellar hemisphere, similar in appearance prior. Mucosal thickening with layering secretions in the right maxillary sinus.
11/01/23 CXR: Some hazy right basilar opacification which could represent pneumonitis.
[2023-11-26] MEDS: LOPRESSOR TUBE (09:17)
[2023-11-26] MEDS: THERAGRAN 1 TABLET PO (09:17)
[2023-11-26] MEDS: LOW STRENGTH ASPIRIN 81 MG TUBE (09:17)
[2023-11-26] MEDS: DEPAKENE 250 MG TUBE ×2 (09:18→19:55)
[2023-11-26] MEDS: NSS (PRESERVATIVE FREE) 10 ML IV ×2 (09:18→19:56)
[2023-11-26] MEDS: PROTONIX IV IV ×2 (09:18→09:47)
--- NOTE | 2023-11-26 09:49 | PTCARENOTE ---
pt asleep this am, unhappy when awoken for am care, meds. rigid in movement, combative at times. see mar.abd binder in place for peg tube +flush- feeding continuous. peg tube cleaned and gauze replaced, green mucus noted at peg insertion site,
repositioned for comfort. call gaines in reach
[2023-11-26 11:49] LABS: Glucose - Point of Care 139 mg/dl (70-99)
--- NOTE | 2023-11-26 12:25 | PTCARENOTE ---
pt washed up, oral care completed, tube feed continues, oob to chair, confused, appears comfortable, family at bedside, call gaines in reach
--- NOTE | 2023-11-26 12:36 | W.PN.HOSP.TC ---
Today's Communication/Plan
-
Reconsult ID
Add fungal cultures to CSF
Continued supportive care as well as treatments for agitation.
Assessment / Plan
Assessment / Plan
A/P:
#Acute toxic metabolic encephalopathy: Remains confused . Definitely with improved mentation but also some of the cognitive dysfunction.. Psychiatry assisting with agitation.
Encephalopathy fluctuates.
Family and psychiatry agreed to use benzodiazepine first for agitation due to less sedative effects.
Brain MRI no acute abnormality
Etiology multifactorial COVID-19 related encephalopathy and delirium with multiple offending factors during this hospital stay.
Psychiatry on board and managing antipsychotics. Currently on mirtazapine, and Ativan as needed.
Speech therapy reevaluated with VSE but failed. Continue tube feedings. Unfortunately patient pulled tube x 2. Status post PEG replacement at bedside 11/13. Tube check study ok.
cw Nava chair, reorientation , and med for agitation ; needed ativan again last night.
With no clear diagnosis of his acute change in mental status/encephalopathy apart from positive COVID on admission LP was obtained
# Abnormal LP with lymphocytic pleocytosis and elevated protein. There are also macrophages noted suggesting of possible subacute to chronic process which is not known at this time. CSF culture negative so far. Meningitis/encephalitis panel
negative. CSF cytology, paraneoplastic antibodies, fungal culture , Lyme's antibody pending.
Consult ID
Neurology following.
Recurrence aspiration pneumonia:
Likely a recurrent event aspiration event
WBC 14.4-->normalized
Change IV antibiotics to oral/through PEG and finished abx course- last day 11/23 (this time which is his third round and started on 11/15).
Blood cultures no growth from latest cultures on 11/15.
Acute hypoxic respiratory insufficiency:
Resolved
DC vest therapy
currently on room air
Hyperglycemia:
Insulin sliding scale & check blood sugars
Sepsis with bacteremia, Serratia Marcescens Bacteremia-CLABSI/PICC line related versus recurrent aspiration pneumonia:
Stable
Finished course of antibiotics
ID signed off.
Prediabetes mellitus:
Insulin sliding scale while in the hospital
Hemoglobin A1c 5.8
Dysphagia: Patient again pulled out his feeding tube twice. Status post PEG replacement at bedside by GI. Tube check study okay.
Tolerating PEG feedings prior.
TPN discontinued
Status post PEG on 10/30. Reinserted on 11/13
Speech therapy reeval and failed VSE. Continue TF
COVID-19:
Off isolation precautions
Status post treated with 5 days of Paxlovid
Western blot Lyme test came back negative for IgM and positive for IgG.
Urinary retention:
Continue following per urology recommendations due to urethral stricture
Discussed with urology and urology evaluated him and recommend to continue Ford catheter and plan to do void trial as outpatient in the rehab facility.
Continue Ford catheter
Past medical problems:
Essential hypertension
Dyslipidemia
Prediabetes mellitus
TIA/brain infarcts
PVD with carotid stenosis status post left CEA
Prostate cancer
DVT prophylaxis:
Lovenox 40 mg SQ daily
CODE STATUS -DNR
Discussed with daughter today and updated the LP findings and evaluation plan
DW ID/Neuro/RN
(Per prior discussion withher ,She noticed over the last 2 years that his cognition and ability has changed. He is forgetful , he gets mixed up at times. He has been writing things down to remember as he is a getting forgetful. No agitation or
cognitive impaired has he is now)
Portions of this chart may have been created with voice recognition software. Occasional wrong word or 'sound alike' substitutions may have occurred due to the inherent limitations of voice recognition software.
Total time spent on today's encounter was 52 minutes which included time spent in counseling the patient/family regarding diagnosis and treatment plan as listed above, goals of care, and symptom management. Case was discussed with nursing staff,
specialists, and care coordinators/case management. All labs and imaging personally reviewed by me. Remainder the time spent in detailed review of previous records, lab data, imaging, and other medical provider documentation.
Anticipated Discharge: > 48 hours
Subjective/Interval History
-
Date of Service: November 26, 2023
Remains pleasantly confused.
Yesterday he needed the as needed Ativan 3 times for agitation. This morning so far no agitation but confused.
Objective Data
-
Vital Signs:
Vital Signs
Temp Pulse Resp BP Pulse Ox
97.4 F 65 16 105/46 96
11/26/23 07:00 11/26/23 07:00 11/26/23 07:00 11/26/23 07:00 11/26/23 07:00
I&O
11/25/23 11/26/23 11/27/23
06:59 06:59 06:59
Intake Total 1920 / 1920 960 / 960
Output Total 1425 / 1425 1200 / 1200
Balance 495 / 495 -240 / -240
Review of Systems
-
Unable to obtain full review of systems at this time due to: Other (Due to cognitive impairment)
Physical Exam
-
General: No Apparent Distress
HEENT: Moist Mucous Membranes
Respiratory: Clear to Auscultation
Cardiac: Regular Rhythm and S1/S2
GI: Soft
Neuro: Awake and Alert; Negative Oriented
Psych: Calm and Confused
Data Reviewed
-
Labs: Labs Reviewed by me
--- NOTE | 2023-11-26 13:58 | W.PN.UPDATE ---
Update Note
Progress Note Update
Patient is presently with several family members, is pleasant and responds to questions but answers are not related to questions asked. Disoriented ti time and place. However is nor irritable and able to smile.
Depakote started yesterday, will monitor level.
Discussed with family, will F/U.
[2023-11-26] MEDS: ATIVAN 0.5 MG IV ×2 (14:55→21:58)
[2023-11-26 15:00] VITALS: BP 131/59
[2023-11-26] MEDS: LOVENOX 40 MG SC (17:19)
[2023-11-26 18:04] LABS: Glucose - Point of Care 131 mg/dl (70-99)
[2023-11-26] MEDS: LOPRESSOR 50 MG TUBE (19:55)
--- NOTE | 2023-11-26 19:55 | PTCARENOTE ---
Assumed care of patient at aprox 1500. Pt in bed and IV team was putting new IV site in at the time. Pt agitated and was requiring PRN ativan. Medsitter in room along with bed alarm. Family in room.
[2023-11-26] MEDS: PROTONIX IV 40 MG IV (19:57)
[2023-11-26] MEDS: FLUSH (NSS) 2 FLUSH IV ×2 (19:58→22:00)
[2023-11-26] MEDS: REMERON 7.5 MG TUBE (21:05)
[2023-11-26] MEDS: NSS (PRESERVATIVE FREE) 0.25 ML IV (21:59)
[2023-11-26 23:06] VITALS: BP 153/72
[2023-11-26 23:46] LABS: Glucose - Point of Care 129 mg/dl (70-99)
[2023-11-27 06:00] VITALS: BMI 17.8
[2023-11-27 06:02] LABS: Glucose - Point of Care 165 mg/dl (70-99)
[2023-11-27] MEDS: NOVOLOG FLEXPEN-LOW RESISTANCE 1 UNITS SC (06:03)
[2023-11-27 07:30] VITALS: BP 127/75
[2023-11-27 08:10] LABS: Erythrocyte Sed Rate 36 mm/hour (0-20)
[2023-11-27] MEDS: THERAGRAN 1 TABLET PO (09:20)
[2023-11-27] MEDS: LOPRESSOR 50 MG TUBE ×2 (09:20→20:16)
[2023-11-27] MEDS: DEPAKENE 250 MG TUBE ×2 (09:20→20:16)
[2023-11-27] MEDS: PROTONIX IV 40 MG IV ×2 (09:20→20:17)
[2023-11-27] MEDS: LOW STRENGTH ASPIRIN 81 MG TUBE (09:20)
[2023-11-27] MEDS: NSS (PRESERVATIVE FREE) 10 ML IV ×2 (09:21→20:16)
--- NOTE | 2023-11-27 11:19 | W.PN.HOSP.TC ---
Addendum entered and electronically signed by Steven Cameron MD 11/29/23 11:54:
Pt meets ASPEN criteria for severe protein calorie malnutrition of chronic illness with >5% wt loss x 1 month admission, prolonged inadequate energy intake <75% for >1month, severe muscle loss (quads, calf) and mod subcutaneous fat loss (orbital).'
Original Note:
Today's Communication/Plan
-
Follow the pending CSF test results.
MRI with contrast in a.m.
Assessment / Plan
Assessment / Plan
A/P:
#Acute toxic metabolic encephalopathy: Remains confused . Definitely with improved mentation but also some of the cognitive dysfunction.. Psychiatry assisting with agitation.
Encephalopathy fluctuates.Some moments of clarity per family
Brain MRI no acute abnormality
Etiology multifactorial COVID-19 related encephalopathy and delirium with multiple offending factors during this hospital stay.
Currently on mirtazapine, and Ativan as needed. Depakote added.
Speech therapy reevaluated with VSE but failed. Continue tube feedings. Unfortunately patient pulled tube x 2. Status post PEG replacement at bedside 11/13. Tube check study ok.
cw Nava chair, reorientation , and med for agitation ; needed ativan .
With no clear diagnosis of his acute change in mental status/encephalopathy apart from positive COVID on admission LP was obtained
# Abnormal LP with lymphocytic pleocytosis and elevated protein. There are also macrophages noted suggesting of possible subacute to chronic process which is not known at this time. CSF culture negative so far. Meningitis/encephalitis panel
negative. CSF cytology, paraneoplastic antibodies, fungal culture , Lyme's antibody pending.
ID following.
Neurology following.
Repeat MRI with contrast .
If repeat imaging and above CSF testing is neg - dw family that we may have to follow clinically and consider repeat LP at later date to follow on protein and if normalizes we may hold further testing.
Recurrence aspiration pneumonia:
Likely a recurrent event aspiration event
WBC 14.4-->normalized
Change IV antibiotics to oral/through PEG and finished abx course- last day 11/23 (this time which is his third round and started on 11/15).
Blood cultures no growth from latest cultures on 11/15.
Acute hypoxic respiratory insufficiency:
Resolved
DC vest therapy
currently on room air
Hyperglycemia:
Insulin sliding scale & check blood sugars
Sepsis with bacteremia, Serratia Marcescens Bacteremia-CLABSI/PICC line related versus recurrent aspiration pneumonia:
Stable
Finished course of antibiotics
ID signed off.
Prediabetes mellitus:
Insulin sliding scale while in the hospital
Hemoglobin A1c 5.8
Dysphagia: Patient again pulled out his feeding tube twice. Status post PEG replacement at bedside by GI. Tube check study okay.
Tolerating PEG feedings prior.
TPN discontinued
Status post PEG on 10/30. Reinserted on 11/13
Speech therapy reeval and failed VSE. Continue TF
COVID-19:
Off isolation precautions
Status post treated with 5 days of Paxlovid
Western blot Lyme test came back negative for IgM and positive for IgG.
Urinary retention:
Continue following per urology recommendations due to urethral stricture
Discussed with urology and urology evaluated him and recommend to continue Ford catheter and plan to do void trial as outpatient in the rehab facility.
Continue Ford catheter
Past medical problems:
Essential hypertension
Dyslipidemia
Prediabetes mellitus
TIA/brain infarcts
PVD with carotid stenosis status post left CEA
Prostate cancer
DVT prophylaxis:
Lovenox 40 mg SQ daily
CODE STATUS -DNR
Discussed with daughter today again and went over the pending test results and plan
CORTES RN
(Per prior discussion withher ,She noticed over the last 2 years that his cognition and ability has changed. He is forgetful , he gets mixed up at times. He has been writing things down to remember as he is a getting forgetful. No agitation or
cognitive impaired has he is now)
Portions of this chart may have been created with voice recognition software. Occasional wrong word or 'sound alike' substitutions may have occurred due to the inherent limitations of voice recognition software.
Anticipated Discharge: > 48 hours
Subjective/Interval History
-
Date of Service: November 27, 2023
Pt remains confused. No agitation .
Family today see some moments of clarity.
Objective Data
-
Vital Signs:
Vital Signs
Temp Pulse Resp BP Pulse Ox
98.0 F 72 16 127/75 97
11/27/23 07:30 11/27/23 07:30 11/27/23 07:30 11/27/23 09:20 11/27/23 07:30
I&O
11/26/23 11/27/23 11/28/23
06:59 06:59 06:59
Intake Total 960 / 960 1675 / 1675
Output Total 1200 / 1200 1550 / 1550
Balance -240 / -240 125 / 125
Review of Systems
-
Unable to obtain full review of systems at this time due to: Other (cognitive impairment)
Physical Exam
-
General: No Apparent Distress
Respiratory: Non Labored Respirations; Negative Accessory Resp Muscle Use
Cardiac: Regular Rhythm and S1/S2; Negative Tachycardic
GI: Soft
Neuro: Awake, Alert and Oriented (self)
Psych: Calm and Confused; Negative Agitated
Data Reviewed
-
Labs: Labs Reviewed by me
--- NOTE | 2023-11-27 11:54 | PTCARENOTE ---
Addendum entered by Bonita Linares RN 11/27/23 18:34:
pt walked the unit multiple times this afternoon with staff and family. pt also walked to bathroom when stated he had to have a bm this afternoon. pt was able to remember this nurses name throughout the shift and able to read name tag-- improvement
from prior shift. at 1830 patient began to get agitated. attempts to redirect unsuccessful. prn ativan given at bedside. pt caregiver through outside [employer] supposed to start tonight per family. initial assessment done this afternoon with
coal cutter from [employer]. MRI scheduled for tomorrow for patient. pt remains on bed and chair alarms as appropriate. gauze around peg site changed.
Original Note:
pt continues to receive tube feed jevity 1.5 @55ml/hr with 25ml/hr flush. pt was able to read nurses name tag this morning and told this nurse his full birthday and name. improvement from when this nurse had pt 11/24. pt walked from room to critical care unit nurse
desk with assistance and rolling walker. pt now oob in chair with family at bedside. pt was able to communicate the need to have a bowel movement to this nurse and pct. pt transferred to bsc where he had a small soft stool. calazine cream applied to
buttocks after bowel movement was passed.
[2023-11-27 12:14] LABS: Glucose - Point of Care 131 mg/dl (70-99)
[2023-11-27] MEDS: NOVOLOG FLEXPEN-LOW RESISTANCE SC ×3 (12:21→23:52)
--- NOTE | 2023-11-27 14:30 | W.PN.UPDATE ---
Update Note
Progress Note Update
Patient is doing reasonably well as he is at least interacting although still his replies are unrelated to questions asked. Not agitated or aggressive.
Will order Depakote level for tomorrow.
and adjust dosage if needed.
Discussed with .
[2023-11-27 15:40] VITALS: BP 141/60
[2023-11-27 18:03] LABS: Glucose - Point of Care 132 mg/dl (70-99)
[2023-11-27] MEDS: LOVENOX 40 MG SC (18:07)
[2023-11-27] MEDS: NSS (PRESERVATIVE FREE) 0.25 ML IV (18:27)
[2023-11-27] MEDS: ATIVAN 0.5 MG IV (18:28)
[2023-11-27] MEDS: FLUSH (NSS) 2 FLUSH IV (20:21)
[2023-11-27] MEDS: REMERON 7.5 MG TUBE (22:10)
[2023-11-27 22:55] VITALS: BP 151/63
[2023-11-27 23:54] LABS: Glucose - Point of Care 141 mg/dl (70-99)
[2023-11-28] MEDS: ATIVAN 0.5 MG IV ×2 (00:35→18:02)
[2023-11-28] MEDS: NSS (PRESERVATIVE FREE) 0.25 ML IV ×2 (00:35→18:01)
[2023-11-28] MEDS: FLUSH (NSS) 2 FLUSH IV (00:36)
--- NOTE | 2023-11-28 05:39 | PTCARENOTE ---
Patient requires frequent repositioning in bed to maintain HOB elevation adequate for tube feeding and aspiration precautions. He continually moves down in bed to try to lay flat.
[2023-11-28 05:55] LABS: Glucose - Point of Care 165 mg/dl (70-99)
[2023-11-28] MEDS: NOVOLOG FLEXPEN-LOW RESISTANCE 1 UNITS SC (05:55)
[2023-11-28 06:00] VITALS: BMI 17.9
[2023-11-28 07:05] VITALS: BP 104/60
[2023-11-28] MEDS: THERAGRAN 1 TABLET PO (08:24)
[2023-11-28] MEDS: DEPAKENE 250 MG TUBE ×2 (08:24→20:27)
[2023-11-28] MEDS: NSS (PRESERVATIVE FREE) 10 ML IV ×2 (08:24→20:27)
[2023-11-28] MEDS: PROTONIX IV 40 MG IV ×2 (08:24→20:27)
[2023-11-28] MEDS: LOW STRENGTH ASPIRIN 81 MG TUBE (08:24)
[2023-11-28] MEDS: LOPRESSOR TUBE (08:45)
--- NOTE | 2023-11-28 08:48 | W.PN.HOSP.TC ---
Today's Communication/Plan
-
Plan for MRI of the brain.
Assessment / Plan
Assessment / Plan
General: Acutely ill
HEENT: Normocephalic, Atraumatic and Dry Mucous Membranes
Respiratory: Clear to auscultation bilateral, no crackles, no wheezes.
Cardiac: Regular Rhythm and S1/S2.
GI: Soft, Nontender and Nondistended
Musculoskeletal: No Clubbing, No Cyanosis and No Edema
Neuro: Lethargic, remains disoriented/encephalopathic. Less interactive this morning.
Psych: Lack of judgment and insight.
A/P:
Acute toxic metabolic encephalopathy: Remains confused. Psychiatry assisting with delirium. He had been on restraints-although he had been off restraints since the weekend.
Encephalopathy fluctuates, especially when he gets an aspiration event just get worse.
Brain MRI no acute abnormality upon admission.
Etiology multifactorial COVID-19 related encephalopathy and delirium with multiple offending factors during this hospital stay.
Psychiatry on board. Currently on mirtazapine, and Depakote and Ativan as needed.
Speech therapy reevaluated with VSE but failed. Continue tube feedings. Unfortunately patient pulled tube x 2. Status post PEG replacement at bedside 11/13. Tube check study ok.
Palliative care and hospice consulted and appreciated input but is not ready to transition to Hospice.
Dr. Cameron repeated w/u looking for etiology ams and did another LP on 11/24 and wanted to repeat another MRI of the brain today 11/27. LP showed some pleocytosis and mildly elevated protein but nonspecific findings overall.
Repeat MRI of the brain pending.
ID was asked to reevaluate patient and they did one more time on 11/25-->post-covid vs infectious vs non infectious. Checking esr, crp, rpr, Quantiferon TB gold, repeat mri.
Discussed with case preparer and liner today
Discussed with attending RN
Discussed with daughter at bedside today
Recurrence aspiration pneumonia(presumably third):
Resolved
Likely a recurrent event aspiration event
WBC normalized
Completed another round of antibiotics
Blood cultures no growth from latest cultures on 11/15.
Discussed with at bedside today on 11/19.
Daughter is coming from [place] this coming week.
We used Nava chair yesterday so we will use it as appropriate moving forward. He is using it this afternoon.
Discussed with attending RN today.
Discussed with at bedside today on 11/19
Will continue with restraints when not in the Nava chair and if his mentation improves can consider discontinue down the road.
Acute hypoxic respiratory insufficiency:
Improved
Sepsis with bacteremia, Serratia Marcescens Bacteremia-CLABSI/PICC line related versus recurrent aspiration pneumonia:
Stable
Finished course of antibiotics
ID signed off.
Prediabetes mellitus:
Insulin sliding scale while in the hospital
Hemoglobin A1c 5.8
Dysphagia: Patient again pulled out his feeding tube twice. Status post PEG replacement at bedside by GI. Tube check study okay.
Tolerating PEG feedings prior.
TPN discontinued
Status post PEG on 10/30. Reinserted on 11/13
Speech therapy reeval and failed VSE. Continue TF
Aspiration pneumonia:
Status post treated with course of antibiotics
COVID-19:
Off isolation precautions
Status post treated with 5 days of Paxlovid
Western blot Lyme test came back negative for IgM and positive for IgG.
Hyponatremia -resolved.
Hyperkalemia - resolved.
Acute hypoxic respiratory failure:
Resolved
Urinary retention:
Continue following per urology recommendations due to urethral stricture
Discussed with urology and urology evaluated him and recommend to continue Ford catheter and plan to do void trial as outpatient in the rehab facility.
Continue Ford catheter
Past medical problems:
Essential hypertension
Dyslipidemia
Prediabetes mellitus
TIA/brain infarcts
PVD with carotid stenosis status post left CEA
Prostate cancer
DVT prophylaxis:
Lovenox 40 mg SQ daily
CODE STATUS -DNR
Anticipated Discharge: > 48 hours
Subjective/Interval History
-
Date of Service: November 28, 2023
Patient sleepy this morning. Reports that he had been able to ambulate to the hallway over the weekend.
Objective Data
-
Vital Signs:
Vital Signs
Temp Pulse Resp BP Pulse Ox
98.5 F 60 16 106/44 99
11/28/23 07:05 11/28/23 08:45 11/28/23 07:05 11/28/23 08:45 11/28/23 07:05
I&O
11/27/23 11/28/23 11/29/23
06:59 06:59 06:59
Intake Total 1675 / 1675 1020 / 1020
Output Total 1550 / 1550 1000 / 1000
Balance 125 / 125 20 / 20
--- NOTE | 2023-11-28 11:24 | W.PN.PAL2 ---
Today's Communication
-
Patient seen briefly in the room. appears comfortable and stable. more conversant with me today, improved compared to my initial visit, although not yet at his baseline. He offered no complaints. MRI pending, CSF results reviewed. Planning for SNF
post hospitlaziation reviewed. Goals are clear at this time, palliative care will sign off, reconsult if needed.
Assessment / Plan
-
Assessment/Plan:
Based on the current condition, prognosis, comorbidities, patient's goals & wishes as discussed above, the palliative care team has made the following recommendations:
Focus & Plan of Care:
Hospice Care:
Palliative Care:
Advanced Care Directives, Resuscitation & Out of Hospital Medical Orders:
Pain & Symptom Management:
Discharge Planning Needs:
Other:
The above recommendations were discussed with the patient/family and medical team.
Objective Data
-
Objective Data:
Vital Signs
Temp Pulse Resp BP Pulse Ox
98.5 F 60 16 106/44 99
11/28/23 07:05 11/28/23 08:45 11/28/23 07:05 11/28/23 08:45 11/28/23 07:05
Laboratory Results
11/24/23 09:01
11/24/23 09:01
PT 14.5 Sec (11.4-14.6) 10/27/23 08:56
INR 1.12 10/27/23 08:56
Hemoglobin A1c 5.8 % (4.0-5.6) H 10/17/23 08:59
Total Protein 5.5 g/dl (6.3-8.2) L 11/16/23 08:47
Albumin 3.1 g/dl (3.5-5.0) L 11/16/23 08:47
Urine Color Yellow 11/01/23 20:48
Urine Clarity Clear (Clear) 11/01/23 20:48
Urine pH 6.0 (5.0-9.0) 11/01/23 20:48
Ur Specific [place] 1.025 (<1.030) 11/01/23 20:48
Urine Ketones Negative (Negative) 11/01/23 20:48
Urine Bilirubin Negative (Negative) 11/01/23 20:48
Palliative Performance Scale
Palliative Performance Scale:
PPS Level Ambulation Activity & Evidence of Disease Self Care Intake Conscious Level
100% Full Normal Activity & Work; Full Intake Full
No Evidence of Disease
90% Full Normal Activity & Work; Full Normal Full
Some Evidence of Disease
80% Full Normal Activity with Effort Full Normal or Full
Some Evidence of Disease Reduced
70% Reduced Unable Normal Job/Work Full Normal or Full
Significant Disease Reduced
60% Reduced Unable Hobby/Housework Occasional Normal or Full or Confusion
Significant Disease Assistance Reduced
50% Mainly Sit/Lie Unable to do Any Work Considerable Normal or Full or Confusion
Extensive Disease Assistance Req'd Reduced
40% Mainly in Bed Unable to do Most Activity Mainly Assistance Normal or Full or Drowsy;
Extensive Disease Reduced +/- Confusion
30% Totally Bed Unable to do Any Activity Total Care Normal or Full or Drowsy;
Bound Extensive Disease Reduced +/- Confusion
20% Totally Bed Bound Unable to do Any Activity Total Care Minimal to Full or Drowsy;
Extensive Disease Sips +/- Confusion
10% Totally Bed Bound Unable to do Any Activity Total Care Mouth Care Drowsy or Coma;
Extensive Disease Only +/- Confusion
0%
PPS Score Level:
Palliative Performance Scale:
PPS Level Ambulation Activity & Evidence of Disease Self Care Intake Conscious Level
100% Full Normal Activity & Work; Full Intake Full
No Evidence of Disease
90% Full Normal Activity & Work; Full Normal Full
Some Evidence of Disease
80% Full Normal Activity with Effort Full Normal or Full
Some Evidence of Disease Reduced
70% Reduced Unable Normal Job/Work Full Normal or Full
Significant Disease Reduced
60% Reduced Unable Hobby/Housework Occasional Normal or Full or Confusion
Significant Disease Assistance Reduced
50% Mainly Sit/Lie Unable to do Any Work Considerable Normal or Full or Confusion
Extensive Disease Assistance Req'd Reduced
40% Mainly in Bed Unable to do Most Activity Mainly Assistance Normal or Full or Drowsy;
Extensive Disease Reduced +/- Confusion
30% Totally Bed Unable to do Any Activity Total Care Normal or Full or Drowsy;
Bound Extensive Disease Reduced +/- Confusion
20% Totally Bed Bound Unable to do Any Activity Total Care Minimal to Full or Drowsy;
Extensive Disease Sips +/- Confusion
10% Totally Bed Bound Unable to do Any Activity Total Care Mouth Care Drowsy or Coma;
Extensive Disease Only +/- Confusion
0%
PPS Score Level:
Palliative Performance Scale:
PPS Level Ambulation Activity & Evidence of Disease Self Care Intake Conscious Level
100% Full Normal Activity & Work; Full Intake Full
No Evidence of Disease
90% Full Normal Activity & Work; Full Normal Full
Some Evidence of Disease
80% Full Normal Activity with Effort Full Normal or Full
Some Evidence of Disease Reduced
70% Reduced Unable Normal Job/Work Full Normal or Full
Significant Disease Reduced
60% Reduced Unable Hobby/Housework Occasional Normal or Full or Confusion
Significant Disease Assistance Reduced
50% Mainly Sit/Lie Unable to do Any Work Considerable Normal or Full or Confusion
Extensive Disease Assistance Req'd Reduced
40% Mainly in Bed Unable to do Most Activity Mainly Assistance Normal or Full or Drowsy;
Extensive Disease Reduced +/- Confusion
30% Totally Bed Unable to do Any Activity Total Care Normal or Full or Drowsy;
Bound Extensive Disease Reduced +/- Confusion
20% Totally Bed Bound Unable to do Any Activity Total Care Minimal to Full or Drowsy;
Extensive Disease Sips +/- Confusion
10% Totally Bed Bound Unable to do Any Activity Total Care Mouth Care Drowsy or Coma;
Extensive Disease Only +/- Confusion
0%
PPS Score Level: 30
[2023-11-28 12:30] LABS: Glucose - Point of Care 103 mg/dl (70-99)
[2023-11-28] MEDS: NOVOLOG FLEXPEN-LOW RESISTANCE SC ×2 (12:42→18:10)
--- NOTE | 2023-11-28 14:24 | W.PN.ID1 ---
Date of Service
Date of Service: November 28, 2023
Today's Communication
Observe off antibiotics.
Assessment / Plan
# Ongoing Encephalopathy
# Recurrent aspiration pneumonia
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
# Dysphagia; s/p PEG 10/31/23
- Peg pulled / dislodged several times/replaced
# Urinary retention requiring goodwin
# s/p Symptomatic COVID infection
- Symptom onset 10/14 evening
- s/p 5-day course of Paxlovid
- S/p 10d isolation
#Additional Past Medical History:
Hx dementia
Hypertension
Dyslipidemia
TIA
Left cerebellar chronic infarcts
Carotid stenosis s/p Left CEA
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
Prostate cancer status post prostatectomy
Heel, wrist and pelvis repair 1967
Recommendations:
At present, etiology of ongoing encephalopathy not clear.
?Progression of underlying dementia, ?post-covid, ?other infection, ?non-infectious
- CSF noted to have a very low degree of pleocytosis, although protein noted to be elevated (somewhat nonspecific)
ESR not especially elevated. CRP normal.
RPR, QuantiFERON TB Gold pending
May consider repeat MRI (last one performed on 10/19/2023) and/or EEG
Meningitis panel negative, including VZV and HSV. No history of significant outdoor exposure making West Nile and eastern equine encephalopathy highly unlikely.
Observe off antibiotics.
����������������������������������������������������������
Chief Complaint
-: Other (Encephalopathy)
Subjective / Review of Systems
Patient seen and examined. Currently sitting up in chair. reports the patient has been walking the halls with his walker and some assistance.
Vital Signs / Physical Exam
Vital Signs
Vital Signs
Temp Pulse Resp BP Pulse Ox
98.5 F 60 16 106/44 99
11/28/23 07:05 11/28/23 08:45 11/28/23 07:05 11/28/23 08:45 11/28/23 07:05
Physical Exam
Constitutional: Comfortable, Chronically Ill and Non-toxic
Eyes: Pupils Equal and Sclera Anicteric
Cardiovascular: S1/S2; Negative S3/S4
Pulmonary: Non Labored; Negative Wheezes or Rales
Gastrointestinal: Soft and Other (PEG tube in place. Abdominal binder in place.)
Extremities: Negative Edema, Cyanosis or Erythema
Neurological: Other (Somnolent. Minimally arousable.)
Objective Data
Lab Data
Lab Results
11/24/23 09:01
11/24/23 09:01
ESR 36 mm/hour (0-20) H 11/27/23 06:25
PT 14.5 Sec (11.4-14.6) 10/27/23 08:56
INR 1.12 10/27/23 08:56
Estimated Creat Clear 72 ml/min 11/24/23 09:01
Lactic Acid 1.0 mmol/L (0.7-2.0) 11/16/23 08:47
Total Bilirubin 0.6 mg/dl (0.2-1.3) 11/16/23 08:47
AST 25 U/L (17-59) 11/16/23 08:47
ALT 36 U/L (0-50) 11/16/23 08:47
Alkaline Phosphatase 103 U/L (38-126) 11/16/23 08:47
C-Reactive Protein 6.80 mg/L (0.0-10.00) 11/27/23 06:25
Most recent labs reviewed.
Micro Results:
11/25/23 17:03 CSF Culture - Preliminary
Csf No Growth After 72 Hours
Gram Stain - Preliminary
11/25/23 17:03 Acid Fast Bacilli Smear - Pending
Csf Acid Fast Bacilli Culture - Pending
11/25/23 17:03 Fungal Culture - Preliminary
Csf Culture in progress.
Positive cultures are reported as soon as detected.
Final report to follow in four to five weeks.
11/25/23 17:03 Meningitis/Encephalitis Panel (PCR) - Final
Csf
11/16/23 09:27 Blood Culture - Final
Blood/Venous No Growth - Final Report
11/16/23 08:48 Blood Culture - Final
Blood/Venous No Growth - Final Report
11/01/23 11:22 Blood Culture - Final
Blood/Venous Serratia marcescens
Gram Stain - Final
11/01/23 20:48 Blood Culture - Final
Blood/Venous No Growth - Final Report
11/01/23 20:48 Urine Culture - Final
Urine NO GROWTH
10/18/23 10:33 Blood Culture - Final
Blood/Venous No Growth - Final Report
10/18/23 18:21 Urine Culture - Final
Urine NO GROWTH
10/16/23 12:56 Urine Culture - Final
Urine NO GROWTH
11/25/2023 Lumbar puncture
CSF Cell Count - - -
CSF Tube # - 1 4 - -
CSF Color - Colorless - -
CSF Clarity - Clear - -
- - -
CSF RBC Count - 196 11 - - mm^3
- - -
CSF WBC Count - 21 10 - *H - 0-5 mm^3
CSF Granulocyte - 4 0 - - %
CSF Lymphocytes - 66 70 - - %
CSF Macrophages - 30 30 - - %
- - -
CSF Protein - 100 - -
CSF Glucose - 68 - -
Imaging:
10/22/2023 CXR (portable): Moderate opacification of the right infrahilar region and mid right lower lung field concerning for developing pneumonia. A tiny left pleural effusion is noted. No pneumothorax seen.
10/16/23 CXR: No acute cardiopulmonary process.
10/17/23 Vascular US: Right carotid: Extensive atherosclerotic disease with peak systolic velocity within the proximal ICA measuring 616 cm/s. Elevated end-diastolic velocity and ICA/CCA ratio compatible with a greater than 70% stenosis. Left
carotid: Mild calcified plaque/intimal thickening within the bulb proximal ICA causing less than 50% luminal narrowing.
10/18/23 CXR: There are new areas of airspace disease in both lower lobes, left greater than right. Findings suggest pneumonia.
10/19/23 Brain MRI: No acute intracranial abnormality. Prior small infarcts within the left cerebellar hemisphere, similar in appearance prior. Mucosal thickening with layering secretions in the right maxillary sinus.
11/01/23 CXR: Some hazy right basilar opacification which could represent pneumonitis.
[2023-11-28 15:20] VITALS: BP 108/55
[2023-11-28] MEDS: LOVENOX 40 MG SC (18:02)
[2023-11-28 18:05] LABS: Glucose - Point of Care 141 mg/dl (70-99)
[2023-11-28 19:10] LABS: C.neoformans Antigen Negative (Negative)
[2023-11-28] MEDS: LOPRESSOR 50 MG TUBE (20:27)
[2023-11-28] MEDS: REMERON 7.5 MG TUBE (22:01)
[2023-11-29 00:58] LABS: Lyme Disease DNA by PCR Not Detected; Lyme Source CSF
[2023-11-29 01:09] LABS: Glucose - Point of Care 89 mg/dl (70-99)
[2023-11-29] MEDS: NOVOLOG FLEXPEN-LOW RESISTANCE SC ×4 (01:15→18:27)
[2023-11-29] MEDS: NSS (PRESERVATIVE FREE) 0.25 ML IV ×2 (01:16→20:31)
[2023-11-29] MEDS: ATIVAN 0.5 MG IV ×3 (01:18→20:31)
[2023-11-29 05:10] VITALS: BMI 18.0
[2023-11-29 05:46] LABS: Glucose - Point of Care 134 mg/dl (70-99)
[2023-11-29 07:05] VITALS: BP 115/76
[2023-11-29] MEDS: PROTONIX IV 40 MG IV ×2 (08:26→20:08)
[2023-11-29] MEDS: DEPAKENE 250 MG TUBE ×2 (08:27→20:07)
[2023-11-29] MEDS: LOPRESSOR 50 MG TUBE (08:27)
[2023-11-29] MEDS: NSS (PRESERVATIVE FREE) 10 ML IV ×2 (08:27→20:08)
[2023-11-29] MEDS: THERAGRAN 1 TABLET PO (08:28)
[2023-11-29] MEDS: LOW STRENGTH ASPIRIN 81 MG TUBE (08:28)
--- NOTE | 2023-11-29 08:38 | W.PN.HOSP.TC ---
Today's Communication/Plan
-
Brain MRI. Continue current management.
Assessment / Plan
Assessment / Plan
General: Acutely ill
HEENT: Normocephalic, Atraumatic and Dry Mucous Membranes
Respiratory: Clear to auscultation bilateral, no crackles, no wheezes.
Cardiac: Regular Rhythm and S1/S2.
GI: Soft, Nontender and Nondistended
Musculoskeletal: No Clubbing, No Cyanosis and No Edema
Neuro: Alert, disoriented/encephalopathic.
Psych: Lack of judgment and insight.
A/P:
Acute toxic metabolic encephalopathy: Remains confused. Psychiatry assisting with delirium. He had been on restraints-although he had been off restraints since the weekend.
Encephalopathy fluctuates, especially when he gets an aspiration event just get worse.
Brain MRI no acute abnormality upon admission.
Etiology multifactorial COVID-19 related encephalopathy and delirium with multiple offending factors during this hospital stay.
Psychiatry on board. Currently on mirtazapine, and Depakote and Ativan as needed. Psychiatry planning to recheck Depakote level.
Speech therapy reevaluated with VSE but failed. Continue tube feedings. Unfortunately patient pulled tube x 2. Status post PEG replacement at bedside 11/13. Tube check study ok.
Palliative care and hospice consulted and appreciated input but is not ready to transition to Hospice.
Dr. Cameron repeated w/u looking for etiology ams and did another LP on 11/24 and wanted to repeat another MRI of the brain today 11/27. LP showed some pleocytosis and mildly elevated protein but nonspecific findings overall. Meningitis panel negative.
Some of the rest of the test pending.
Repeat MRI of the brain unremarkable for acute findings; it shows evidence of old ischemic findings.
ID was asked to reevaluate patient by Dr. Cameron-->post-covid vs infectious vs non infectious. Normal esr and crp, and pending RPR and Quantiferon TB gold.
Repeat some basic labs today pending.
Discussed with geriatric case manager today
Discussed with attending RN
Discussed with over the phone today.
Recurrence aspiration pneumonia(presumably third):
Resolved
Likely a recurrent event aspiration event
WBC normalized
Completed another round of antibiotics
Blood cultures no growth from latest cultures on 11/15.
Discussed with at bedside today on 11/19.
Daughter is coming from [place] this coming week.
We used Nava chair yesterday so we will use it as appropriate moving forward. He is using it this afternoon.
Discussed with attending RN today.
Discussed with at bedside today on 11/19
Will continue with restraints when not in the Nava chair and if his mentation improves can consider discontinue down the road.
Acute hypoxic respiratory insufficiency:
Improved
Sepsis with bacteremia, Serratia Marcescens Bacteremia-CLABSI/PICC line related versus recurrent aspiration pneumonia:
Stable
Finished course of antibiotics
ID signed off.
Prediabetes mellitus:
Insulin sliding scale while in the hospital
Hemoglobin A1c 5.8
Dysphagia: Patient again pulled out his feeding tube twice. Status post PEG replacement at bedside by GI. Tube check study okay.
Tolerating PEG feedings prior.
TPN discontinued
Status post PEG on 10/30. Reinserted on 11/13
Speech therapy reeval and failed VSE. Continue TF
Aspiration pneumonia:
Status post treated with course of antibiotics
COVID-19:
Off isolation precautions
Status post treated with 5 days of Paxlovid
Western blot Lyme test came back negative for IgM and positive for IgG.
Hyponatremia -resolved.
Hyperkalemia - resolved.
Acute hypoxic respiratory failure:
Resolved
Urinary retention:
Continue following per urology recommendations due to urethral stricture
Discussed with urology and urology evaluated him and recommend to continue Ford catheter and plan to do void trial as outpatient in the rehab facility.
Continue Ford catheter
Past medical problems:
Essential hypertension
Dyslipidemia
Prediabetes mellitus
TIA/brain infarcts
PVD with carotid stenosis status post left CEA
Prostate cancer
DVT prophylaxis:
Lovenox 40 mg SQ daily
CODE STATUS -DNR
Anticipated Discharge: > 48 hours
Subjective/Interval History
-
Date of Service: November 29, 2023
Patient alert but disoriented. He does not appear agitated but does appear anxious and waving hands at times appears upset.
Objective Data
-
Labs:
Laboratory Results
11/29/23
06:00
WBC Pending
Hgb Pending
Hct Pending
Plt Count Pending
Sodium Pending
Potassium Pending
Chloride Pending
Carbon Dioxide Pending
BUN Pending
Creatinine Pending
Glucose Pending
Calcium Pending
Vital Signs:
Vital Signs
Temp Pulse Resp BP Pulse Ox
97.4 F 66 14 115/76 99
11/29/23 07:05 11/29/23 08:27 11/29/23 07:05 11/29/23 08:27 11/29/23 07:05
I&O
11/28/23 11/29/23 11/30/23
06:59 06:59 06:59
Intake Total 1020 / 1020 1979 / 1979
Output Total 1000 / 1000 900 / 900
Balance 1080 / 1080
--- NOTE | 2023-11-29 10:28 | W.PN.UPDATE ---
Update Note
Progress Note Update
Patient seen at bedside, NELLIE present, chart reviewed, discussed with RN and CM, also spoke to by phone. This AM, Mr. Wallace is a bit ansy but does not appear as agitated. He does wave back to me when I say hello. No acute issues overnight
reported. Lumbar puncture done, MRI pending for today. No ill effects from Depakote reported. Labs done and VPA level at 24.0. Discussed this with and agree to recheck on Tuesday prior to making decisions to increase. She is concerned that it
has been difficult to assess cognitive function given the medications he has been receiving. He out of restraints and I am told has been out of them for a few days.
Impression/Recommendations: Delirium, with agitation, etiology unclear at this time - For now, continue with Depakote at 250mg BID (started on 11/24) and recheck levels on Tuesday. Continue with Mirtazapine and PRN Ativan.
[2023-11-29 11:14] LABS: Quantiferon Mitogen minus NIL 7.79 IU/mL; Quantiferon NIL 0.01 IU/mL; Quantiferon Plus TB2 minus NIL 0.01 IU/mL (<=0.34); Quantiferon TB Gold Plus Negative (Negative)
--- NOTE | 2023-11-29 12:42 | PTCARENOTE ---
pt refusing blood draw this am multiple attempts made, not successful. Will try again. family aware and at bedside. md aware.
[2023-11-29 13:24] LABS: Glucose - Point of Care 127 mg/dl (70-99)
--- NOTE | 2023-11-29 14:29 | CM ---
Patient seen at bedside with . MRI performed today.
states had private duty agency ([employer]) with patient overnight.
states did not like that it was a 16 hr shift and would rather have private duty 2/twelve hr or 3/eight hr shifts.
She stated she was going to speak with the agency to see if they could provide these shifts.
CM also gave resources-[facility], [facility], [facility].
states she cannot care for him at home.
CM also gave her the list of SNF's. CM called [facility] & spoke with Vandana & they cannot accept patient.
PLAN: Discharge when stable. PT recommending SNF.
[2023-11-29 15:05] VITALS: BP 170/80
[2023-11-29 15:12] LABS: Syphilis/T. pallidum Ab Reflex Negative (Negative)
--- NOTE | 2023-11-29 15:50 | PTOTSP ---
Speech Language Pathology
Pt seen for dysphagia tx. Pooling of oral secretions noted, suspect pt not swallowing secretions. Gurgling voice noted at rest, suspect aspiration of secretions. Unable to clear with weak cued cough. stated this was from Ativan given
earlier. Ice chips provided for effortful swallow exercises. Pt able to complete 10 effortful swallows with use of mod to max cueing, but this took 20 minutes. Minimal therapeutic benefit from dysphagia tx at this time as family is able to
implement effortful swallows when alert during the day. No progress has been noted recently. Prognosis for short-term improvement is poor, long-term improvement is also poor.
Recommend:
1. Continued NPO (PEG in place)
2. Oral care 4x/day with suctioning as needed
3. Meds via non-oral means
4. Allow ice chips given supervision as part of Aspiration Risk Hydration Protocol (ARHP). may provide ice chips to pt without nursing supervision to in completing swallowing exercises during the day
5. Dysphagia therapy at the acute care level and after D/C from acute care at this time. Limited benefit up until this point.
[2023-11-29 16:00] VITALS: BP 125/70
[2023-11-29 16:03] VITALS: BP 147/60; PULSE 77
[2023-11-29 18:28] LABS: Glucose - Point of Care 129 mg/dl (70-99)
[2023-11-29] MEDS: LOVENOX SC (18:28)
[2023-11-29] MEDS: LOPRESSOR TUBE (20:08)
[2023-11-29] MEDS: REMERON 7.5 MG TUBE (21:30)
[2023-11-29 23:26] VITALS: BP 149/71
[2023-11-30 00:18] LABS: Glucose - Point of Care 159 mg/dl (70-99)
[2023-11-30] MEDS: NOVOLOG FLEXPEN-LOW RESISTANCE 1 UNITS SC (00:18)
[2023-11-30] MEDS: ATIVAN 0.5 MG IV ×3 (03:48→18:26)
[2023-11-30] MEDS: NSS (PRESERVATIVE FREE) 0.25 ML IV ×3 (03:48→18:27)
[2023-11-30 06:00] VITALS: BMI 17.7
[2023-11-30] MEDS: NOVOLOG FLEXPEN-LOW RESISTANCE SC ×3 (06:05→18:21)
[2023-11-30 06:10] LABS: Glucose - Point of Care 131 mg/dl (70-99)
[2023-11-30 07:05] VITALS: BP 158/74
[2023-11-30] MEDS: DEPAKENE 250 MG TUBE ×2 (09:01→19:48)
[2023-11-30] MEDS: PROTONIX IV 40 MG IV ×2 (09:01→19:50)
[2023-11-30] MEDS: NSS (PRESERVATIVE FREE) 10 ML IV ×2 (09:01→19:48)
[2023-11-30] MEDS: LOPRESSOR 50 MG TUBE ×2 (09:02→19:50)
[2023-11-30] MEDS: THERAGRAN 1 TABLET PO (09:02)
[2023-11-30] MEDS: LOW STRENGTH ASPIRIN 81 MG TUBE (09:02)
[2023-11-30 11:48] LABS: Glucose - Point of Care 132 mg/dl (70-99)
--- NOTE | 2023-11-30 12:06 | W.PN.UPDATE ---
Update Note
Progress Note Update
patient seen chart reviewed. daughter at bedside. the patient is much the same. he was lying in bed half asleep half awake. at times restless. nursing had fashioned a pillow for him to clutch in order to help [id number] him from pulling on lines. d
who is at bedside for long stretches reported he had not slept at night and reviewing the mar it does seem he has had prns more frequently in the wee hours of the night since cutting back hs remeron to 7.5. his depakote level is low at 24 and there
is a progress note from psych that did not want to inc til tuesday. i would suggest no point to waiting as level done on the fourth day after initiating depakote and is likely fairly accurate. will call to discuss and make the
recommendation to inc depakote and remeron. offered support to d who is remaining her indefinitely to be of support to her dad. (she resides in [place]). she worried he does not want her to see him this way but it is my impression that he is
comforted by her. she admitted it is very hard for her to see him this way which is entirely understandable . results of lp are not at this point diagnostic. lyme paraneoplastic abs fungal culture pending. + lymphocytic pleocytosis and inc
protein and macrophages. nega menintitis and enceph panel and cytology will follow
--- NOTE | 2023-11-30 12:26 | W.PN.HOSP.TC ---
Today's Communication/Plan
-
Continue current management
Assessment / Plan
Assessment / Plan
General: Acutely ill
HEENT: Normocephalic, Atraumatic and Dry Mucous Membranes
Respiratory: Clear to auscultation bilateral, no crackles, no wheezes.
Cardiac: Regular Rhythm and S1/S2.
GI: Soft, Nontender and Nondistended
Musculoskeletal: No Clubbing, No Cyanosis and No Edema
Neuro: Alert, disoriented/encephalopathic.
Psych: Lack of judgment and insight.
A/P:
Acute toxic metabolic encephalopathy: Remains confused. Psychiatry assisting with delirium. He had been on restraints-although he had been off restraints since the weekend.
Encephalopathy fluctuates, especially when he gets an aspiration event just get worse.
Patient more agitated overnight and early this morning. Almost pulled PEG again. Required couple doses of benzodiazepines today and more calm afterwards.
Brain MRI no acute abnormality upon admission.
Etiology multifactorial COVID-19 related encephalopathy and delirium with multiple offending factors during this hospital stay.
Psychiatry on board. Currently on mirtazapine, and Depakote and Ativan as needed. Psychiatry planning to recheck Depakote level but also considering increasing doses of Depakote and Remeron.
Speech therapy reevaluated with VSE but failed. Continue tube feedings. Unfortunately patient pulled tube x 2. Status post PEG replacement at bedside 11/13. Tube check study ok.
Palliative care and hospice consulted and appreciated input but is not ready to transition to Hospice.
Dr. Cameron repeated w/u looking for etiology ams and did another LP on 11/24 and wanted to repeat another MRI of the brain today 11/27. LP showed some pleocytosis and mildly elevated protein but nonspecific findings overall. Meningitis panel negative.
Some of the rest of the test pending.
Repeat MRI of the brain unremarkable for acute findings; it shows evidence of old ischemic findings.
ID was asked to reevaluate patient by Dr. Cameron-->post-covid vs infectious vs non infectious. Normal esr and crp, and pending RPR and Quantiferon TB gold.
Did not cooperated for labs yesterday so we will check on Tuesday when he is due to check for Depakote levels
Discussed with case briefer yesterday
Discussed with attending RN today
Discussed with over the phone yesterday
Discussed at length with daughter at bedside today 11/29
Recurrence aspiration pneumonia(presumably third):
Resolved
Likely a recurrent event aspiration event
WBC normalized
Completed another round of antibiotics
Blood cultures no growth from latest cultures on 11/15.
Discussed with at bedside today on 11/19.
Daughter is coming from [place] this coming week.
We used Nava chair yesterday so we will use it as appropriate moving forward. He is using it this afternoon.
Discussed with attending RN today.
Discussed with at bedside today on 11/19
Will continue with restraints when not in the Nava chair and if his mentation improves can consider discontinue down the road.
Acute hypoxic respiratory insufficiency:
Improved
Sepsis with bacteremia, Serratia Marcescens Bacteremia-CLABSI/PICC line related versus recurrent aspiration pneumonia:
Stable
Finished course of antibiotics
ID signed off.
Prediabetes mellitus:
Insulin sliding scale while in the hospital
Hemoglobin A1c 5.8
Dysphagia: Patient again pulled out his feeding tube twice. Status post PEG replacement at bedside by GI. Tube check study okay.
Tolerating PEG feedings prior.
TPN discontinued
Status post PEG on 10/30. Reinserted on 11/13
Speech therapy reeval and failed VSE. Continue TF
Aspiration pneumonia:
Status post treated with course of antibiotics
COVID-19:
Off isolation precautions
Status post treated with 5 days of Paxlovid
Western blot Lyme test came back negative for IgM and positive for IgG.
Hyponatremia -resolved.
Hyperkalemia - resolved.
Acute hypoxic respiratory failure:
Resolved
Urinary retention:
Continue following per urology recommendations due to urethral stricture
Discussed with urology and urology evaluated him and recommend to continue Ford catheter and plan to do void trial as outpatient in the rehab facility.
Continue Ford catheter
Past medical problems:
Essential hypertension
Dyslipidemia
Prediabetes mellitus
TIA/brain infarcts
PVD with carotid stenosis status post left CEA
Prostate cancer
DVT prophylaxis:
Lovenox 40 mg SQ daily
CODE STATUS -DNR
Anticipated Discharge: > 48 hours
Subjective/Interval History
-
Date of Service: November 30, 2023
Patient more agitated overnight and early this morning. Almost pulled PEG again. Required couple doses of benzodiazepines today and more calm afterwards. Afebrile
Objective Data
-
Vital Signs:
Vital Signs
Temp Pulse Resp BP Pulse Ox
97.5 F 87 16 158/74 97
11/30/23 07:05 11/30/23 09:02 11/30/23 07:05 11/30/23 09:02 11/30/23 10:47
I&O
11/29/23 11/30/23 12/01/23
06:59 06:59 06:59
Intake Total 1979 / 1979 960 / 960
Output Total 900 / 900 1225 / 1225
Balance 1080 / 1080 -265 / -265
--- NOTE | 2023-11-30 13:00 | W.PN.ID1 ---
Date of Service
Date of Service: November 30, 2023
Today's Communication
Sign off
Assessment / Plan
# Ongoing Encephalopathy
# Recurrent aspiration pneumonia
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
# Dysphagia; s/p PEG 10/31/23
- Peg pulled / dislodged several times/replaced
# Urinary retention requiring goodwin
# s/p Symptomatic COVID infection
- Symptom onset 10/14 evening
- s/p 5-day course of Paxlovid
- S/p 10d isolation
#Additional Past Medical History:
Hx dementia
Hypertension
Dyslipidemia
TIA
Left cerebellar chronic infarcts
Carotid stenosis s/p Left CEA
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
Prostate cancer status post prostatectomy
Heel, wrist and pelvis repair 1967
Recommendations:
At present, etiology of ongoing encephalopathy not clear.
?Progression of underlying dementia, ?post-covid, ?other infection, ?non-infectious
- CSF noted to have a very low degree of pleocytosis, although protein noted to be elevated (somewhat nonspecific)
ESR not especially elevated. CRP normal.
RPR nonreactive, QuantiFERON TB Gold negative. Lyme PCR negative.
MRI reveals global atrophy.
Meningitis panel negative, including VZV and HSV. No history of significant outdoor exposure making West Nile and eastern equine encephalopathy highly unlikely.
At this point in time there does not appear to be an infectious process.
Continue off antibiotics.
Little more to offer from a Infectious Disease standpoint.
Will see again at your request.
����������������������������������������������������������
Chief Complaint
-: Other (Encephalopathy)
Subjective / Review of Systems
Review of Systems: No Fever and No Chills
Vital Signs / Physical Exam
Vital Signs
Vital Signs
Temp Pulse Resp BP Pulse Ox
97.5 F 87 16 158/74 97
11/30/23 07:05 11/30/23 09:02 11/30/23 07:05 11/30/23 09:02 11/30/23 10:47
Physical Exam
Constitutional: Comfortable, Chronically Ill and Non-toxic
Cardiovascular: S3/S4
Pulmonary: Non Labored
Gastrointestinal: Other (PEG tube in place. Abdominal binder in place.)
Extremities: Negative Edema, Cyanosis or Erythema
Neurological: Awake, Alert and Other (Somnolent. Minimally arousable.)
Psychological: Confused
Objective Data
Lab Data
Lab Results
11/29/23 06:00
11/29/23 06:00
ESR 36 mm/hour (0-20) H 11/27/23 06:25
PT 14.5 Sec (11.4-14.6) 10/27/23 08:56
INR 1.12 10/27/23 08:56
Estimated Creat Clear Cancelled 11/29/23 06:00
Lactic Acid 1.0 mmol/L (0.7-2.0) 11/16/23 08:47
Total Bilirubin 0.6 mg/dl (0.2-1.3) 11/16/23 08:47
AST 25 U/L (17-59) 11/16/23 08:47
ALT 36 U/L (0-50) 11/16/23 08:47
Alkaline Phosphatase 103 U/L (38-126) 11/16/23 08:47
C-Reactive Protein 6.80 mg/L (0.0-10.00) 11/27/23 06:25
Most recent labs reviewed.
Micro Results:
11/25/23 17:03 CSF Culture - Final
Csf No Growth After 5 Days - Final Report
Gram Stain - Final
11/25/23 17:03 Acid Fast Bacilli Smear - Preliminary
Csf Acid Fast Bacilli Culture - Preliminary
11/25/23 17:03 Fungal Culture - Preliminary
Csf Culture in progress.
Positive cultures are reported as soon as detected.
Final report to follow in four to five weeks.
11/25/23 17:03 Meningitis/Encephalitis Panel (PCR) - Final
Csf
11/16/23 09:27 Blood Culture - Final
Blood/Venous No Growth - Final Report
11/16/23 08:48 Blood Culture - Final
Blood/Venous No Growth - Final Report
11/01/23 11:22 Blood Culture - Final
Blood/Venous Serratia marcescens
Gram Stain - Final
11/01/23 20:48 Blood Culture - Final
Blood/Venous No Growth - Final Report
11/01/23 20:48 Urine Culture - Final
Urine NO GROWTH
10/18/23 10:33 Blood Culture - Final
Blood/Venous No Growth - Final Report
10/18/23 18:21 Urine Culture - Final
Urine NO GROWTH
10/16/23 12:56 Urine Culture - Final
Urine NO GROWTH
11/25/2023 Lumbar puncture
CSF Cell Count - - -
CSF Tube # - 1 4 - -
CSF Color - Colorless - -
CSF Clarity - Clear - -
- - -
CSF RBC Count - 196 11 - - mm^3
- - -
CSF WBC Count - 21 10 - *H - 0-5 mm^3
CSF Granulocyte - 4 0 - - %
CSF Lymphocytes - 66 70 - - %
CSF Macrophages - 30 30 - - %
- - -
CSF Protein - 100 - -
CSF Glucose - 68 - -
Imaging:
10/22/2023 CXR (portable): Moderate opacification of the right infrahilar region and mid right lower lung field concerning for developing pneumonia. A tiny left pleural effusion is noted. No pneumothorax seen.
10/16/23 CXR: No acute cardiopulmonary process.
10/17/23 Vascular US: Right carotid: Extensive atherosclerotic disease with peak systolic velocity within the proximal ICA measuring 616 cm/s. Elevated end-diastolic velocity and ICA/CCA ratio compatible with a greater than 70% stenosis. Left
carotid: Mild calcified plaque/intimal thickening within the bulb proximal ICA causing less than 50% luminal narrowing.
10/18/23 CXR: There are new areas of airspace disease in both lower lobes, left greater than right. Findings suggest pneumonia.
10/19/23 Brain MRI: No acute intracranial abnormality. Prior small infarcts within the left cerebellar hemisphere, similar in appearance prior. Mucosal thickening with layering secretions in the right maxillary sinus.
11/01/23 CXR: Some hazy right basilar opacification which could represent pneumonitis.
--- NOTE | 2023-11-30 13:53 | PTCARENOTE ---
Patient noted with 2 small closed blister on his groin area. Dr. Bullard aware. ID consulted. Plan of care ongoing. No s/s distress at this time.
[2023-11-30 14:25] VITALS: BP 128/57; PULSE 72
[2023-11-30 14:56] VITALS: BP 128/57; PULSE 72
[2023-11-30 15:00] VITALS: BP 109/61
[2023-11-30] MEDS: LOVENOX 40 MG SC (17:10)
[2023-11-30 18:04] LABS: Glucose - Point of Care 80 mg/dl (70-99)
[2023-11-30] MEDS: REMERON 7.5 MG TUBE (22:20)
[2023-11-30 22:46] VITALS: BP 129/55
[2023-12-01 00:11] LABS: Glucose - Point of Care 135 mg/dl (70-99)
[2023-12-01] MEDS: NOVOLOG FLEXPEN-LOW RESISTANCE SC ×3 (00:17→18:52)
[2023-12-01 00:21] LABS: Paraneoplastic Ab IgG, CSF None Detected (None Detected)
[2023-12-01 05:37] LABS: Glucose - Point of Care 126 mg/dl (70-99)
[2023-12-01 05:43] VITALS: BMI 17.6
[2023-12-01] MEDS: DEPAKENE 250 MG TUBE ×2 (07:47→15:21)
[2023-12-01] MEDS: PROTONIX IV 40 MG IV ×2 (07:50→20:41)
[2023-12-01] MEDS: LOPRESSOR 50 MG TUBE ×2 (07:51→20:41)
[2023-12-01] MEDS: LOW STRENGTH ASPIRIN 81 MG TUBE (07:51)
[2023-12-01] MEDS: NSS (PRESERVATIVE FREE) 10 ML IV ×2 (07:51→20:41)
[2023-12-01] MEDS: THERAGRAN 1 TABLET PO (07:52)
[2023-12-01 08:20] VITALS: BP 139/60
--- NOTE | 2023-12-01 08:42 | W.PN.HOSP.TC ---
Addendum entered and electronically signed by Júnior Bullard MD 12/01/23 17:40:
Discussed with [facility] neurologist Dr. Vanessa Monroy and she accepted transfer. Discussed with our neurologist Dr. Kauffman. Discussed with daughter over the phone. Left a message to psych to call back.
Original Note:
Today's Communication/Plan
-
Continue current management.
Assessment / Plan
Assessment / Plan
General: Acutely ill
HEENT: Normocephalic, Atraumatic and Dry Mucous Membranes
Respiratory: Clear to auscultation bilateral, no crackles, no wheezes.
Cardiac: Regular Rhythm and S1/S2.
GI: Soft, Nontender and Nondistended
Musculoskeletal: No Clubbing, No Cyanosis and No Edema
Neuro: Alert, disoriented/encephalopathic.
Psych: Lack of judgment and insight.
A/P:
Acute toxic metabolic encephalopathy: Remains confused. Psychiatry assisting with delirium. He had been off restraints since the weekend.
Encephalopathy fluctuates, especially when he gets an aspiration event just get worse.
Brain MRI x2 no acute abnormality upon admission.
Etiology multifactorial COVID-19 related encephalopathy and delirium with multiple offending factors during this hospital stay.
Psychiatry on board. Currently on mirtazapine, and Depakote and Ativan as needed. Psychiatry planning to recheck Depakote level but also considering increasing doses of Depakote and Remeron.
Speech therapy reevaluated with VSE but failed. Continue tube feedings. Unfortunately patient pulled tube x 2. Status post PEG replacement at bedside 11/13. Tube check study ok.
Palliative care and hospice consulted and appreciated input but is not ready to transition to Hospice.
Dr. Cameron repeated w/u looking for etiology ams and did another LP on 11/24 and wanted to repeat another MRI of the brain today 11/27. LP showed some pleocytosis and mildly elevated protein but nonspecific findings overall. Meningitis panel negative.
Some of the rest of the test pending.
Repeat MRI of the brain unremarkable for acute findings; it shows evidence of old ischemic findings.
ID was asked to reevaluate patient by Dr. Cameron and this is ID assesment-->post-covid vs infectious vs non infectious.
Normal crp, but significantly elevated ESR, and negative RPR and negative Quantiferon TB gold. Lyme test negative.
Discussed with attending RN today
Discussed at length with daughter at bedside yesterday
Discussed with over the phone today-I was looking forward to discussing with psychiatry about any changes to his medications.
Recurrence aspiration pneumonia(presumably third):
Resolved
Likely a recurrent event aspiration event
WBC normalized
Completed another round of antibiotics
Blood cultures no growth from latest cultures on 11/15.
Acute hypoxic respiratory insufficiency:
Improved
Sepsis with bacteremia, Serratia Marcescens Bacteremia-CLABSI/PICC line related versus recurrent aspiration pneumonia:
Stable
Finished course of antibiotics
ID signed off.
Prediabetes mellitus:
Insulin sliding scale while in the hospital
Hemoglobin A1c 5.8
Dysphagia: Patient again pulled out his feeding tube twice. Status post PEG replacement at bedside by GI. Tube check study okay.
Tolerating PEG feedings prior.
TPN discontinued
Status post PEG on 10/30. Reinserted on 11/13
Speech therapy reeval and failed VSE. Continue TF
Aspiration pneumonia:
Status post treated with course of antibiotics
COVID-19:
Off isolation precautions
Status post treated with 5 days of Paxlovid
Western blot Lyme test came back negative for IgM and positive for IgG.
Hyponatremia -resolved.
Hyperkalemia - resolved.
Acute hypoxic respiratory failure:
Resolved
Urinary retention:
Continue following per urology recommendations due to urethral stricture
Discussed with urology and urology evaluated him and recommend to continue Ford catheter and plan to do void trial as outpatient in the rehab facility.
Continue Ford catheter
Past medical problems:
Essential hypertension
Dyslipidemia
Prediabetes mellitus
TIA/brain infarcts
PVD with carotid stenosis status post left CEA
Prostate cancer
DVT prophylaxis:
Lovenox 40 mg SQ daily
CODE STATUS -DNR
Anticipated Discharge: > 48 hours
Subjective/Interval History
-
Date of Service: December 01, 2023
Patient is sleepy this morning. Discussed with nighttime aide and he was restless overnight but not agitated. Afebrile
Objective Data
-
Vital Signs:
Vital Signs
Temp Pulse Resp BP Pulse Ox
97.4 F 66 14 139/60 100
12/01/23 08:20 12/01/23 08:20 12/01/23 08:20 12/01/23 08:20 12/01/23 08:20
I&O
11/30/23 12/01/23 12/02/23
06:59 06:59 06:59
Intake Total 960 / 960 960 / 960
Output Total 1225 / 1225 600 / 600
Balance -265 / -265 360 / 360
[2023-12-01] MEDS: ATIVAN 0.5 MG IV (10:03)
--- NOTE | 2023-12-01 10:40 | W.PN.PAL2 ---
Addendum entered and electronically signed by Sola Mendez MD 12/01/23 16:36:
returned call.
States that they are still trying different medications with psychiatry and awaiting a few CSF results.
Not intersted in hospice transition discusison at this time.
Goals remain treatment oriented.
Original Note:
Today's Communication
-
Call placed to for call back to check in and see if any changes to goals of care. Chart reviewed. Patient remains confused with agitation, no clear etiology discovered at this time. Await call back.
Objective Data
-
Objective Data:
Vital Signs
Temp Pulse Resp BP Pulse Ox
97.4 F 66 14 139/60 100
12/01/23 08:20 12/01/23 08:20 12/01/23 08:20 12/01/23 08:20 12/01/23 08:20
Laboratory Results
11/29/23 06:00
11/29/23 06:00
PT 14.5 Sec (11.4-14.6) 10/27/23 08:56
INR 1.12 10/27/23 08:56
Hemoglobin A1c 5.8 % (4.0-5.6) H 10/17/23 08:59
Total Protein 5.5 g/dl (6.3-8.2) L 11/16/23 08:47
Albumin 3.1 g/dl (3.5-5.0) L 11/16/23 08:47
Urine Color Yellow 11/01/23 20:48
Urine Clarity Clear (Clear) 11/01/23 20:48
Urine pH 6.0 (5.0-9.0) 11/01/23 20:48
Ur Specific [place] 1.025 (<1.030) 11/01/23 20:48
Urine Ketones Negative (Negative) 11/01/23 20:48
Urine Bilirubin Negative (Negative) 11/01/23 20:48
Palliative Performance Scale
40
Physical Exam
-
Patient getting cleaned at time of my visit, agitated with care. confused
[2023-12-01 11:53] LABS: Glucose - Point of Care 154 mg/dl (70-99)
[2023-12-01] MEDS: NOVOLOG FLEXPEN-LOW RESISTANCE 1 UNITS SC (11:58)
--- NOTE | 2023-12-01 13:37 | W.PN.UPDATE ---
Addendum entered and electronically signed by Kelly Escobar MD 12/01/23 15:43:
spoke with dr flor who will speak to jono to see if there is anything further they might be able to do for mr kay.
Original Note:
Update Note
Progress Note Update
patient seen chart reviewed. spoke with nursing and also had a detailed discussion about mr kay's condition and various treatments with his who was present at the bedside. mr kay continues w pronounced confusion. he has periods of
significant agitation. mrs kay reports that the aide she has hired described sgnificant agitation in the evening yesterday and nursing struggled with him this am to do am care . he required a prn of ativan which barely calmed him. while i was
there which was for over thirty minutes he was intermittently pulling albeit at those moments rather gently at his body, tubes and the sheets and would take his hands in hers to calm him. sometimes he did respond to verbal intervention. we
discussed whether to have ativan on a jun dosage basis but the reality is that would sedate him likely for a lot of the day. we discussed klonopin instead of ativan which has a longer duration of action but sedation would also be an issue.
reviewed that the traditional view of bzp in delirium is that they could worsen it but we have not seen that in my opinion here. in the end decided to increase the prn of ativan to one mg. we also discussed my observation that sleep is worse since
remeron was decreased and will go back to the 15 mg dose. lastly she agreed to increase the depakote in the hope it will decrease his restless periods and aim for a level of 50 to 100 the last level was only 24. we discussed the use of
seroquel....there was a period when he did appear to have cogwheeling when he was taking antipsychotics...i still wonder if it was voluntary guarding as this was a time when he was even more agitated so it might be worth another try. i had the
thought while seeing him whether this could be some version of autoimmune encephalitis whether associated w covid or otherwise. will discuss w dr flor . there was some elevation or white cells and protein in csf. would a trial of steriods be
indicated? would it help if he were tf to jono or blanca? this is a man who according to his had only mild cognitive impairment and who after covid is a shell of himself. has showed me some of his work and he was,it seems to me ,quite a
learned man. at this point he is very much regressed from that.
[2023-12-01 16:07] VITALS: BP 116/66
--- NOTE | 2023-12-01 16:09 | CM ---
Patient seen today in [facility], Terese present in the room with patient.
Patient confused, states he was agitated last night.
Still continues with private pay aide at night.
offered support to & let her know is available for needs.
Per Dr. Escobar note, discussion of transfer to [facility].
PLAN: ?transfer to [facility]
[2023-12-01] MEDS: LOVENOX 40 MG SC (17:01)
[2023-12-01 18:48] LABS: Glucose - Point of Care 132 mg/dl (70-99)
[2023-12-01] MEDS: DEPAKENE 500 MG TUBE (21:33)
[2023-12-01] MEDS: REMERON 15 MG TUBE (21:33)
[2023-12-01 23:09] VITALS: BP 154/66
[2023-12-02] LABS: Glucose - Point of Care 132 mg/dl (70-99)
[2023-12-02] MEDS: NOVOLOG FLEXPEN-LOW RESISTANCE SC ×2 (00:29→07:47)
[2023-12-02 05:38] VITALS: BMI 17.6
[2023-12-02 06:46] LABS: Glucose - Point of Care 135 mg/dl (70-99)
[2023-12-02 06:56] LABS: Depakane 47.9 ug/ml (50.0-120.0)
[2023-12-02 07:05] VITALS: BP 121/56
[2023-12-02] MEDS: LOPRESSOR 50 MG TUBE ×2 (09:30→20:41)
[2023-12-02] MEDS: THERAGRAN 1 TABLET PO (09:30)
[2023-12-02] MEDS: PROTONIX IV 40 MG IV ×2 (09:31→20:40)
[2023-12-02] MEDS: DEPAKENE 250 MG TUBE ×2 (09:31→15:56)
[2023-12-02] MEDS: NSS (PRESERVATIVE FREE) 10 ML IV ×2 (09:31→20:40)
[2023-12-02] MEDS: LOW STRENGTH ASPIRIN 81 MG TUBE (09:31)
--- NOTE | 2023-12-02 09:31 | W.PN.HOSP.TC ---
Today's Communication/Plan
-
Transfer to [place]
Assessment / Plan
Assessment / Plan
General: Acutely ill
HEENT: Normocephalic, Atraumatic and Dry Mucous Membranes
Respiratory: Clear to auscultation bilateral, no crackles, no wheezes.
Cardiac: Regular Rhythm and S1/S2.
GI: Soft, Nontender and Nondistended
Musculoskeletal: No Clubbing, No Cyanosis and No Edema
Neuro: Alert, disoriented/encephalopathic.
Psych: Lack of judgment and insight.
A/P:
Acute toxic metabolic encephalopathy:
Encephalopathy -->Until this day etiology remains unclear although suspected COVID-19 encephalopathy not confirmed.
Brain MRI x2 no acute abnormality.
Neurology and ID and psychiatry on board.
Currently on mirtazapine, and Depakote and Ativan as needed.
Speech therapy reevaluated with VSE but failed. Continue tube feedings. Unfortunately patient pulled tube x 2. Status post PEG replacement at bedside 11/13. Tube check study ok.
Palliative care and hospice consulted and appreciated input but family is not ready to transition to Hospice.
LP on 11/24 showed some pleocytosis and mildly elevated protein but nonspecific findings overall. Meningitis panel negative. Some of the rest of the test pending.
Repeat MRI of the brain unremarkable for acute findings; it shows evidence of old ischemic findings.
Normal crp, but significantly elevated ESR, and negative RPR and negative Quantiferon TB gold. Lyme test negative.
I reached out to [facility] neurologist yesterday and I spoke with Dr. Vanessa Monroy as well as our own neurologist in conference-->[facility] accepted him in transfer. I discussed with family including and daughter today who are in agreement. I also
updated psychiatrist today.
Recurrence aspiration pneumonia(presumably third):
Resolved
Likely a recurrent event aspiration event
WBC normalized
Completed another round of antibiotics
Blood cultures no growth from latest cultures on 11/15.
Acute hypoxic respiratory insufficiency:
Improved
Sepsis with bacteremia, Serratia Marcescens Bacteremia-CLABSI/PICC line related versus recurrent aspiration pneumonia:
Stable
Finished course of antibiotics
ID signed off.
Prediabetes mellitus:
Insulin sliding scale while in the hospital
Hemoglobin A1c 5.8
Dysphagia: Patient again pulled out his feeding tube twice. Status post PEG replacement at bedside by GI. Tube check study okay.
Tolerating PEG feedings prior.
TPN discontinued
Status post PEG on 10/30. Reinserted on 11/13
Speech therapy reeval and failed VSE. Continue TF
Aspiration pneumonia:
Status post treated with course of antibiotics
COVID-19:
Off isolation precautions
Status post treated with 5 days of Paxlovid
Western blot Lyme test came back negative for IgM and positive for IgG.
Hyponatremia -resolved.
Hyperkalemia - resolved.
Acute hypoxic respiratory failure:
Resolved
Urinary retention:
Continue following per urology recommendations due to urethral stricture
Discussed with urology and urology evaluated him and recommend to continue Ford catheter and plan to do void trial as outpatient in the rehab facility.
Continue Ford catheter
Past medical problems:
Essential hypertension
Dyslipidemia
Prediabetes mellitus
TIA/brain infarcts
PVD with carotid stenosis status post left CEA
Prostate cancer
DVT prophylaxis:
Lovenox 40 mg SQ daily
CODE STATUS -DNR
Anticipated Discharge: Today
Subjective/Interval History
-
Date of Service: December 02, 2023
Patient seen and examined today.
Objective Data
-
Vital Signs:
Vital Signs
Temp Pulse Resp BP Pulse Ox
98 F 67 16 121/56 97
12/02/23 07:05 12/02/23 07:05 12/02/23 07:05 12/02/23 07:05 12/02/23 07:05
I&O
12/01/23 12/02/23 12/03/23
06:59 06:59 06:59
Intake Total 960 / 960 950 / 950
Output Total 600 / 600 950 / 950
Balance 360 / 360 0 / 0
[2023-12-02 12:08] LABS: Glucose - Point of Care 158 mg/dl (70-99)
--- NOTE | 2023-12-02 12:31 | W.DCSUMMARY ---
Discharge Summary
Discharge Data
Date of Admission: 10/17/23
Date of Discharge: 12/02/23
-
Pending Results: No
Hospital Course
Patient is 78 years old male history of CVA/TIA, PVD status post L CEA in the past, prostate cancer status post prostatectomy in the past, hypertension, hyperlipidemia, COVID-19 back in 2020, mild cognitive impairment, former smoker, history of
anaplasmosis phagocytophilum, presented to the hospital with acute mental status changes. Prior to his presentation patient was cooking own meals, driving, shopping, doing laundry, working part-time in [employer], independent in ADLs, and
presented with mental status changes and acute COVID-19. Multiple specialists consulted including ID, neurology, GI, urology, psychiatry, and palliative care.
Patient was treated with Paxlovid for 5 days. He was then treated for an episode of aspiration pneumonia and completed course of antibiotics. He subsequently had an episode of transient bacteremia with Serratia marcescens and it was felt to be
either a second episode of aspiration pneumonia or PICC related infection and he was treated with a course of antibiotic and line discontinued. Patient also had a third episode of fever with leukocytosis that was felt to be related to another
episode of aspiration pneumonia and he was treated with a third course of antibiotics and completed course. He had remained afebrile and normal WBC since last treatment with antibiotics. As part of infectious workup, meningitis panel including VZV
and HSV by LP was negative, RPR nonreactive, QuantiFERON TB Gold negative, Lyme PCR negative, CRP normal, sed rate only minimally elevated. ID recommended to continue off antibiotics and an infectious process has not been identified.
Patient had 2 brain MRI on 10/18 w/o contrast and on 11/28 with and w/o contrast and it showed no acute intracranial abnormalities although image quality mildly degraded by motion artifact. MRI did show global atrophy mainly bilateral mesial temporal
lobes and prior lacunar infarctions in the left cerebellar hemisphere, and mucosal thickening of the right greater than left maxillary sinuses. Lumbar puncture shows 10 WBC and 100 CSF total protein and most of the rest is unremarkable.
He had dysphagia and temporarily had TPN subsequently discontinued. He had a PEG in place for feeding on 10/30 and he pulled it out and it was reinserted on 11/13. Since then he has been tolerating tube feedings without any problems.
He also had urinary retention and urology consulted and found that he had a urethral stricture and Ford catheter was placed. Urology recommended to continue Ford catheter until patient ambulatory and condition improved and or until reevaluated by
urology.
Patient encephalopathy has remained. Much about the same throughout this hospital stay. He lately has been managed with Remeron and Depakote and Ativan as needed. He has required nonviolent restraints. Otherwise he is hemodynamically stable but
not much progress in terms of mentation and neurological status. We discussed with [facility] who accepted him in transfer for further evaluation and management as needed. We signed buy back agreement. No other events were noticed. He will be
transferred to [place] [facility] as soon as bed available.
Discharge duration: 35 minutes
Discharge Plan
-
[facility]
Discharge Date and Time
Discharge Date/Time: 12/02/23 11:45
Print Language: IRANIAN
[2023-12-02] MEDS: NOVOLOG FLEXPEN-LOW RESISTANCE 1 UNITS SC ×2 (12:40→18:16)
--- NOTE | 2023-12-02 12:57 | CM ---
Met with patient Terese regarding transfer/buy back form for [facility].
Signatures obtained from Dr. Bullard & Terese.
Faxed to [facility] Precertification Coordinator ([phone]) confirmation received.
Placed a copy in the chart.
PLAN: transfer to [facility] once a bed is available.
--- NOTE | 2023-12-02 13:23 | W.PN.UPDATE ---
Update Note
Progress Note Update
patient seen chart reviewed. spoke with dr flor earlier this am as well as and d at bedside. dr flor and i discussed potential referral to [facility] yesterday afternoon . [facility] will [facility] patient for workup of persistent encephalopathy and
patient's and d have agreed with that transfer when a bed is available. discussed w family the reality that at this moment we do not have a true dx of what has happened to mr kay. the hope is that a definitive dx would suggest a more
specific and effective treatment. mr kay was seated in the carrington chair. every now and then he would speak sometimes it would seem that it might be relevant at other moments not so much. he was a little bit restless shaking the tray on the chair
almost as if he were telling us he wanted out. he has not received a prn since yesterday at 10 am of ativan. he remains on depakote which was increased yesterday to 250mg bid and 500 mg q hs and remeron 15. mg. the depakote does seem to have helped
some with restlessness and the remeron with sleep
[2023-12-02 15:05] VITALS: BP 143/56
[2023-12-02] MEDS: LOVENOX 40 MG SC (17:33)
[2023-12-02 18:05] LABS: Glucose - Point of Care 160 mg/dl (70-99)
[2023-12-02] MEDS: ATIVAN 0.5 MG IV (20:55)
[2023-12-02] MEDS: NSS (PRESERVATIVE FREE) 0.25 ML IV (20:55)
[2023-12-02] MEDS: REMERON 15 MG TUBE (21:52)
[2023-12-02] MEDS: DEPAKENE 500 MG TUBE (21:52)
[2023-12-02 23:21] VITALS: BP 117/55
--- NOTE | 2023-12-05 12:55 | CM ---
Patient was transferred to [facility].
Per nurse it was approximately 0130 Tuesday.
== END 2023-12-02 11:45 | disposition short-term general hospital (02) | DRG 177 ==
LOC: 2 NORTH 17:23
PROVIDERS: Clinical Nurse Specialist Family Health; Internal Medicine; Internal Medicine Infectious Disease; Nurse Practitioner Family; Nurse Practitioner Gerontology; Physician Assistant; Psychiatry & Neurology Psychiatry; Radiology Diagnostic Radiology; Surgery; ADMITTING PHYSICIAN Hospitalist; ATTENDING PHYSICIAN Hospitalist; CONSULT PHYSICIAN Internal Medicine Infectious Disease; CONSULT PHYSICIAN Psychiatry & Neurology Psychiatry; CONSULT PHYSICIAN Specialist; EMERGENCY PHYSICIAN Emergency Medicine; OTHER PHYSICIAN Internal Medicine; OTHER PHYSICIAN Internal Medicine Gastroenterology; OTHER PHYSICIAN Psychiatry & Neurology Neurology; OTHER PHYSICIAN Psychiatry & Neurology Psychiatry; OTHER PHYSICIAN Thoracic Surgery (Cardiothoracic Vascular Surgery)
PROC: 02HV33Z Insertion of Infusion Device into Superior Vena Cava, Percutaneous Approach (ICD-10-PCS; 2023-10-22)
PROC: 3E0436Z Introduction of Nutritional Substance into Central Vein, Percutaneous Approach (ICD-10-PCS; 2023-10-22)
PROC: 0DH63UZ Insertion of Feeding Device into Stomach, Percutaneous Approach (ICD-10-PCS; 2023-10-31)
PROC: 0DB58ZX Excision of Esophagus, Via Natural or Artificial Opening Endoscopic, Diagnostic (ICD-10-PCS; 2023-10-31)
PROC: 009U3ZX Drainage of Spinal Canal, Percutaneous Approach, Diagnostic (ICD-10-PCS; 2023-11-25)
DX: U07.1 COVID-19 (principal); A41.53 Sepsis due to Serratia; G92.8 Other toxic encephalopathy; J69.0 Pneumonitis due to inhalation of food and vomit; J96.01 Acute respiratory failure with hypoxia; E43 Unspecified severe protein-calorie malnutrition; N39.0 Urinary tract infection, site not specified; Z68.1 Body mass index [BMI] 19.9 or less, adult; E87.1 Hypo-osmolality and hyponatremia; Z66 Do not resuscitate; I10 Essential (primary) hypertension; E78.00 Pure hypercholesterolemia, unspecified; F03.A0 Unspecified dementia, mild, without behavioral disturbance, psychotic disturbance, mood disturbance, and anxiety; R13.12 Dysphagia, oropharyngeal phase; R62.7 Adult failure to thrive; K44.9 Diaphragmatic hernia without obstruction or gangrene; K31.7 Polyp of stomach and duodenum; K22.70 Barrett's esophagus without dysplasia; I65.23 Occlusion and stenosis of bilateral carotid arteries; K26.9 Duodenal ulcer, unspecified as acute or chronic, without hemorrhage or perforation; N35.919 Unspecified urethral stricture, male, unspecified site; D69.59 Other secondary thrombocytopenia; E87.5 Hyperkalemia; R33.8 Other retention of urine; R73.03 Prediabetes; K20.90 Esophagitis, unspecified without bleeding; Z78.1 Physical restraint status; Z79.82 Long term (current) use of aspirin; Z79.84 Long term (current) use of oral hypoglycemic drugs; Z79.899 Other long term (current) drug therapy; Z85.46 Personal history of malignant neoplasm of prostate; Z86.16 Personal history of COVID-19; Z86.73 Personal history of transient ischemic attack (TIA), and cerebral infarction without residual deficits; Z87.891 Personal history of nicotine dependence
CPT/HCPCS: 88305; 49465; 62328; 70450; 70551; 71045; 71046; 74018; 74176; 74230; 80048; 80053; 80061; 80164; 81003; 81015; 82248; 82330; 82607; 82728; 82746; 82945; 82962; 83036; 83605; 83735; 83880; 83930; 83935; 84100; 84145; 84157; 84300; 84443; 84478; 85025; 85027; 85610; 85652; 86140; 86255; 86480; 86617; 86618; 86780; 87015; 87040; 87070; 87086; 87102; 87116; 87149; 87186; 87205; 87327; 87476; 87483; 87811; 88108; 89051; 92523; 92526; 92611; 93005; 93880; 94669; 95816; 97110; 97116; 97129; 97163; 97167; 97530; 97535; 99285

== ENCOUNTER 2023-12-07 19:52 | Inpatient (IN) | payer MEDICARE, BC, SELFPAY ==
[2023-12-07 20:04] VITALS: BP 174/78
--- NOTE | 2023-12-07 20:13 | HPS.HSE ---
Family Physician
-
Family Physician: NOT KNOW UNKNOWN - PT DOES
Chief Complaint
-
altered mental status
History of Present Illness
Mr. Ethan Wallace is a 78 yo man with hx prostate CA, CVA, carotid artery stenosis s/p CEA 2004, HTN, HLD, admission to on 10/15-12/01 with acute change in mentation associated with acute Covid 19 without improvement when transferred to [facility] for
further work-up now transferred back to without significant findings.
During patient's admission to he was treated with Paxlovid, aspiration Pneumonia x 3, and transient bacteremia with Serratia Marcescens with removal of PICC line. He is s/p LP with negative VZV, HSV, RPR, quantiferon TB Gold, Lyme PCR. Negative
paraneoplastic screening. LP had 10 WBC and 100 protein in CSF, otherwise unremarkable. He had 2 Brain MRI's which showed no acute abnormality. He required PEG placement for persistent dysphagia. Despite above treatment and work-up he remained
encephalopathic and therefore transferred to [facility] for further work-up.
Per [facility] DC summary, continuous EEG performed with unremarkable findings. LP was CSF showing 1 wbc, 170 RBC, protein 64, glucose 68. Depakote was stopped. He was started on thiamine repletion. Per DC summary: 'our greates suspicion for his
cognitive decline is a form of dementia with acute decompensation int he setting of infections.'
Medical History
Past Medical History
Past Medical History: Reports Other
Additional Past Medical History:
HTN
HLD
TIA 12/2017,left cerebellar chronic infarcts
prostate cancer status post prostatectomy
carotid stenosis status post left CEA
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
ex-smoker
[place]
COVID-19 infection 2020 is vaccinated x 2 with Moderna
Past Surgical History: Reports Other
Additional Past Surgical History:
Left CEA
Prostate cancer with prostatectomy 2004
Bermudez cyst removal 2006
Heel, wrist and pelvis repair 1967
Tonsillectomy
Social History
Tobacco: Former Smoker (20-year 1 pack a day quit early 30s)
Alcohol: Occasional
Personal: ( Terese who is also POA)
Living: With Family
Employment: Retired
Family History
Family History: Not pertinent
Allergies / Home Medications
Allergies reflects when Allergies were last updated in [facility].
Home Medications with original date entered in [facility]
Allergy/Medication List:
Allergies
Allergy/AdvReac Type Severity Reaction Status Date / Time
Sulfa (Sulfonamide Allergy Unknown Verified 08/28/18 06:05
Antibiotics)
Home Medications
aspirin 81 mg tablet,delayed release 81 mg DAILY Blood Clot Prevention/Tx 12/20/17
ramipril 10 mg capsule 10 mg PO QPM Blood Pressure 12/20/17
Lactobac no.2-Bifidobac no.1-S. thermo 112.5 billion cell capsule (Visbiome) 1 cap PO DAILY Gastrointestinal Issue 10/16/23
cholecalciferol (vitamin D3) 50 mcg (2,000 unit) tablet (Vitamin D3) 100 mcg PO DAILY Supplement 10/16/23
metformin 500 mg tablet 500 mg PO BIDWMEAL Diabetes 10/16/23
thiamine HCl (vitamin B1) 250 mg tablet 250 mg PO BID Supplement 10/16/23
atorvastatin 40 mg tablet 40 mg QPM 12/07/23
metoprolol tartrate 50 mg tablet 50 mg PO BID 12/07/23
Review of Systems
-
History Source: Patient
A 12 point ROS was completed and negative except as noted: Yes
Physical Exam
Vital Signs
Vital Signs
Temp Pulse Resp BP Pulse Ox
98.3 F 76 17 174/78 99
12/07/23 20:04 12/07/23 20:04 12/07/23 20:04 12/07/23 20:04 12/07/23 20:04
Physical Exam
General: Other (frail appearing, disheveled and confused)
HEENT: PERRLA
Respiratory: Clear; No Wheezes
Cardiac: S1/S2 and Regular Rhythm
GI: Soft and Non Tender
Musculoskeletal: No Edema
Skin: Warm and Dry; No Rash
Neuro: Awake and Alert
Psych: Calm
Data Reviewed
-
Diagnostic Radiology: Report Reviewed by me
Lab Data: Labs Reviewed by me
Impression/Plan
-
Mr. Ethan Wallace is a 78 yo man with hx prostate CA, CVA, carotid artery stenosis s/p CEA 2004, HTN, HLD, admission to on 10/15-12/01 with acute change in mentation associated with acute Covid 19 without improvement when transferred to [facility] for
further work-up now transferred back to without significant findings, etiology thought 2/2 hospital acquired delirium. Patient remains very off baseline.
Altered Mental Status
Delirium
Hx Cognitive Impairment
-unfortunately patient remains with significant confusion and delirium in the setting of covid followed by a prolonged hospitalization with multiple infections
-He is transferred back from [facility] after further work-up with repeat LP and EEG without signficant findings
-medications adjusted at [facility] and he is now only on Seroquel qhs
-continue PT/OT/ST
-continue TF
-palliative care consulted last admission
Recurrent aspiration pneumonia
Sepsis with Bacteremia
Covid-19
-s/p course of Paxlovid
-s/p multiple course of antibiotics
Pre-DM
-monitor BGL
Dysphagia
-continue TF
Urinary retention:
Continue following per urology recommendations due to urethral stricture
Discussed with urology and urology evaluated him and recommend to continue Ford catheter and plan to do void trial as outpatient in the rehab facility.
Continue Ford catheter
Past medical problems:
Essential hypertension
Dyslipidemia
Prediabetes mellitus
TIA/brain infarcts
PVD with carotid stenosis status post left CEA
Prostate cancer
DVT prophylaxis:
hep subQ
DNR
-
[2023-12-07] MEDS: HEPARIN 5000 UNITS SC (20:41)
[2023-12-07 20:42] LABS: Hematocrit 35.3 % (39.0-52.0); Hemoglobin 12.2 g/dL (13.0-18.0); Mean Corp Hgb Conc. 34.6 g/dL (33.0-37.0); Mean Corpuscular Hgb 31.7 pg (27.0-31.0); Mean Corpuscular Volume 91.7 fL (80.0-94.0); Mean Platelet Volume 10.6 fL (7.4-10.4); Platelet Count 291 10^3/uL (130-400); Red Blood Cell Count 3.85 10^6/uL (4.70-6.10); Red Cell Dist. Width 13.7 % (11.5-14.5); White Blood Cell Count 9.4 10^3/uL (4.8-10.8)
[2023-12-07 20:57] LABS: Blood Urea Nitrogen 20 mg/dl (9-20); Calcium 8.9 mg/dl (8.4-10.2); Carbon Dioxide 24 mmol/L (22-30); Chloride 102 mmol/L (98-107); Glucose 101 mg/dl (70-99); Magnesium 2.1 mg/dl (1.6-2.3); Potassium 4.4 mmol/L (3.5-5.1); Sodium 139 mmol/L (135-145); eGFR > 60.00
[2023-12-07] MEDS: LOPRESSOR 50 MG PO (21:19)
[2023-12-07] MEDS: SEROQUEL 12.5 MG TUBE (21:19)
--- NOTE | 2023-12-08 04:40 | PTCARENOTE ---
patient transferred from [facility] to ,admitted to room 2137. Pt oriented to self and no family with patient at this time. Initiated medsitter, and placed bed alarm on bed. attempted to orient pt to room and call gaines unsuccessfully. admission
assessment completed.ABD binder in place, hourly and more freq rounds done on patient as he is noted to be fidgeting and pulling at cords/tubes and redirection is needed
[2023-12-08 06:37] LABS: Glucose - Point of Care 98 mg/dl (70-99)
[2023-12-08 07:43] VITALS: BP 97/61
[2023-12-08] MEDS: LOW STRENGTH ASPIRIN 81 MG TUBE (08:53)
[2023-12-08] MEDS: LOPRESSOR 50 MG PO ×2 (08:54→19:54)
[2023-12-08] MEDS: ALTACE 10 MG PO (08:55)
[2023-12-08] MEDS: THIAMINE INJECTION 250 MG IV (08:56)
[2023-12-08] MEDS: HEPARIN 5000 UNITS SC ×2 (08:58→19:54)
--- NOTE | 2023-12-08 09:33 | PTCARENOTE ---
tube feeds started this morning for this nurse. pt receiving Jevity through his PEG at 55ml/hr with a 25ml/hr flush. pt with a 97/61 bp this morning. lopressor and altace. bp rechecked 109/56 with 67 HR. MD resident made aware and said ok to give BP
meds.
[2023-12-08 11:21] LABS: Glucose - Point of Care 117 mg/dl (70-99)
[2023-12-08 11:48] VITALS: BP 120/90
[2023-12-08 12:15] VITALS: BP 129/60; PULSE 66; O2SAT 98
--- NOTE | 2023-12-08 12:35 | PTOTSP ---
Speech Language Pathology
Pt seen for clinical bedside swallow evaluation. Well known to SECURITIES SUPERVISOR at from recent extended hospitalization. Pt received PEG during that hospitalization. VSE completed 11/08/23 showed severe pharyngeal dysphagia with aspiration of all textures
and significant pharyngeal residue. Overall during that admission, pt seen a total of 28 visits with no progress in therapy noted. Family has been educated on effortful swallow exercise, and they complete this with him when he is awake and more
appropriate with use of ice chips.
This date, seen with single ice chip. Pt with poor cognitive status and difficulty attending to task. Reminded pt multiple times for effortful swallow, but he did not utilize effort. Offered 2nd ice chip, and pt refused. Discussed lack of
progress with who stated it was for a multitude of reasons (i.e. unfamiliar with room, being tired from PT, etc). Pt/ would benefit from team meeting to discuss prognosis, and appears to have unrealistic expectations at this time.
Recommend:
(1) NPO
(2) Oral care 4x/day with suctioning as needed
(3) Non-oral meds
(4) Allow ice chips post oral care given supervision per Aspiration Risk Hydration Protocol (ARHP)
(5) SECURITIES SUPERVISOR to follow peripherally, as not able to actively participate in therapy other than what family is currently implementing. Will change plan if pt able to participate further
--- NOTE | 2023-12-08 12:45 | CM ---
Reviewed the chart notes and spoke with the patient, spouse, and daughter at the bedside. The patient was transferred back to from [facility] last night. The patient resides with his spouse in a two story home with eight steps to enter. Per spouse,
patient uses no DME nor been to a SNF. The patient had VN in past. The patient's pharmacy of choice is the [facility] [address] [place] [address]. CM continues to be available to patient/family and is monitoring medical plan for needs at discharge.
Plan: Discharge plans will depend on the patient's progress. Most likely SNF. Patient currently on Medsitter and in a carrington-chair for safety.
[2023-12-08 15:43] VITALS: BP 91/44
--- NOTE | 2023-12-08 16:29 | W.PN.HOSP.TC ---
Today's Communication/Plan
-
See above
Assessment / Plan
Assessment / Plan
Mr. Ethan Wallace is a 78 yo man with hx prostate CA, CVA, carotid artery stenosis s/p CEA 2004, HTN, HLD, admission to on 10/15-12/01 with acute change in mentation associated with acute Covid 19 without improvement when transferred to [facility] for
further work-up now transferred back to without significant findings, etiology thought 2/2 hospital acquired delirium. Patient remains very off baseline.
Altered Mental Status
Delirium
Hx Cognitive Impairment
-unfortunately patient remains with significant confusion and delirium in the setting of covid followed by a prolonged hospitalization with multiple infections
-He is transferred back from [facility] after further work-up with repeat LP and EEG without signficant findings
-medications adjusted at [facility] and he is now only on Seroquel qhs
-continue PT/OT/ST
-continue TF
-consult psychiatry for agitation management
Recurrent aspiration pneumonia
Sepsis with Bacteremia
Covid-19
-s/p course of Paxlovid
-s/p multiple course of antibiotics
- CW NPO and tube feeds
- SPT consult
Pre-DM
-monitor BGL
Dysphagia
-continue TF
Urinary retention:
Hx urethral stricture
Came back from [facility] without Ford.
Continue to monitor for retention
Past medical problems:
Essential hypertension
Dyslipidemia
Prediabetes mellitus
TIA/brain infarcts
PVD with carotid stenosis status post left CEA
Prostate cancer
DVT prophylaxis:
hep subQ
DNR
[facility]el medically [facility] plan to rehab
Anticipated Discharge: 24 - 48 hours
Subjective/Interval History
-
Date of Service: December 08, 2023
Patient remains confused. Pleasant. Unable to follow commands. Family at bedside.
Objective Data
-
Vital Signs:
Vital Signs
Temp Pulse Resp BP Pulse Ox
97.5 F 75 16 91/44 99
12/08/23 15:43 12/08/23 15:43 12/08/23 15:43 12/08/23 15:43 12/08/23 15:43
I&O
12/07/23 12/08/23 12/09/23
06:59 06:59 06:59
Intake Total
Balance
Review of Systems
-
Unable to obtain full review of systems at this time due to: Other ( Cognitive impairment)
Physical Exam
-
General: Comfortable
HEENT: Moist Mucous Membranes
Respiratory: Clear to Auscultation
Cardiac: Regular Rhythm and S1/S2
GI: Soft, Nontender and Peg Tube
Neuro: Awake and Alert; Negative Oriented, No Motor Deficits or Tremors
Psych: Calm and Confused; Negative Agitated
--- NOTE | 2023-12-08 16:45 | W.PN.UPDATE ---
Update Note
Progress Note Update
patient seen chart reviewed. this patient is very well known to me. his had been in communication with me while she was at [place]. he returns from that facility to which he was referred for ongoing confusion likely encephalopathy. they did not
find a specific cause.. they repeated much of what had been done here including eeg lp etc. depakote and ativan have been dc'ed. he is currrently taking only seroquel 12.5 mg q day. spoke with his d who was at bedside. she feels he has been doing
much better since return. he was still confused this evening and verbalizing nothing that i could understand as relevant but he was calm. he has an apron from [place] which sits on his abdomen which daughter tells me is for the purpose of helping him
to calm self when restless and keeps him from pulling at iv's tubes etc. for now would not add any other medications. the goal ultimately is a snf which could help with rehab and improvment in [facility]. will see him tomorrow and talk with his .
[2023-12-08] MEDS: LIPITOR 40 MG TUBE (17:27)
[2023-12-08 17:45] LABS: Glucose - Point of Care 126 mg/dl (70-99)
[2023-12-08] MEDS: SEROQUEL 12.5 MG TUBE (22:04)
[2023-12-08 22:45] VITALS: BP 139/63
[2023-12-08 23:46] LABS: Glucose - Point of Care 139 mg/dl (70-99)
[2023-12-09 06:32] LABS: Hematocrit 33.6 % (39.0-52.0); Hemoglobin 11.1 g/dL (13.0-18.0); Mean Corpuscular Hgb 32.1 pg (27.0-31.0); Mean Corpuscular Volume 97.1 fL (80.0-94.0); Mean Platelet Volume 11.4 fL (7.4-10.4); Platelet Count 227 10^3/uL (130-400); Red Blood Cell Count 3.46 10^6/uL (4.70-6.10); Red Cell Dist. Width 13.8 % (11.5-14.5); White Blood Cell Count 7.3 10^3/uL (4.8-10.8)
[2023-12-09 06:50] LABS: ALT (SGPT) 34 U/L (0-50); AST (SGOT) 33 U/L (17-59); Alkaline Phosphatase 127 U/L (38-126); Blood Urea Nitrogen 25 mg/dl (9-20); Calcium 8.7 mg/dl (8.4-10.2); Carbon Dioxide 26 mmol/L (22-30); Chloride 102 mmol/L (98-107); Glucose 120 mg/dl (70-99); Potassium 4.4 mmol/L (3.5-5.1); Sodium 141 mmol/L (135-145); Total Bilirubin 0.3 mg/dl (0.2-1.3); Total Protein 5.3 g/dl (6.3-8.2); eGFR > 60.00
[2023-12-09 07:40] VITALS: BP 157/70
[2023-12-09] MEDS: ALTACE 10 MG PO (08:48)
[2023-12-09] MEDS: LOW STRENGTH ASPIRIN 81 MG TUBE (08:48)
[2023-12-09] MEDS: LOPRESSOR 50 MG PO ×2 (08:48→20:04)
[2023-12-09] MEDS: HEPARIN 5000 UNITS SC ×2 (08:51→20:01)
[2023-12-09] MEDS: THIAMINE INJECTION 250 MG IV (08:51)
[2023-12-09 08:59] LABS: Glucose - Point of Care 106 mg/dl (70-99)
[2023-12-09 09:03] LABS: Glycohemoglobin (HgbA1c) 5.4 % (4.0-5.6)
[2023-12-09] MEDS: NOVOLOG FLEXPEN-LOW RESISTANCE SC ×3 (09:12→17:47)
--- NOTE | 2023-12-09 10:47 | W.PN.UPDATE ---
Update Note
Progress Note Update
patient seen chart reviewed. discussed w nursing and dr dimas. the patient is resting quietly. he is however still confused. i attempted to engage him in conversation to no avail. initially the tv was blaring 'relaxing' music and producing a lot of
static in the process which he seemed reluctant to allow me to lower. he then allowed me to reduce the volume but the conversation did not improve. he alternately said words i could not make out or when i could understand the words, they were not
relevant. on the + side he was calm. he was not pulling out tubes or wires. he had the dog pillow beside him and his apron on his lap which allows him to fidget with the attachments. current psych meds seroquel 12.5 mg daily. would try to use as
little sedating medication as possible
[2023-12-09 12:05] LABS: Glucose - Point of Care 131 mg/dl (70-99)
--- NOTE | 2023-12-09 13:03 | PN.CDI ---
CDI
- -
CDI:
Physician Documentation Request
Admit Date: 12/07/23 19:52
Dear Doctor Rakesh,
Clinical Indicators:
12/07 note/assessment: -Muscle loss: Calf severe Quads severe Clavicle moderate
-Unintentional weight loss >5% in 1 month
-'Due to weight loss and observations of fat/muscle loss, pt meeting criteria for severe
protein/calorie malnutrition (ASPEN/AND guidelines, chronic illness).
Based on the above information and your assessment, which of the following most accurately represents the patient's nutritional status?
Severe Protein Calorie Malnutrition
Moderate Protein Calorie Malnutrition
Other (please specify)
[place] Criteria ([facility] Hospitalist 2017)
2 or more criteria must be present for either
non severe or severe malnutrition
Note that the criteria differs related to the
presence of an acute or chronic illness
Acute Illness Chronic Illness
Energy Intake Non Severe: <75% for >7 days Non Severe: <75% for >1 month
Severe: <50% for >5 days Severe: <75% for >1 month
Weight Loss Non Severe: 1-2% over 1 week Non Severe: 5% over 1 month
5% over 1 month 7.5% over 3 months
7.5% over 3 months 10% over 6 months
1 year N/A 20% over 1 year
Severe: >2% over 1 week Severe: >5% over 1 month
>5% over 1 month >7.5% over 3 months
>7.5% over 3 months >10% over 6 months
1 year N/A >20% over 1 year
Body Fat Non Severe: Mild Decrease Non Severe: Mild Loss
Severe: Moderate Decrease Severe: Severe Loss
Muscle Mass Non Severe: Mild Decrease Non Severe: Mild Loss
Severe: Moderate Decrease Severe: Severe Loss
Fluid Accumulation Non Severe: Mild Accumulation Non Severe: Mild Accumulation
Severe: Moderate to severe Severe: Moderate to severe
accumulation accumulation
Reduced Hr Receptionist Strength Non Severe: N/A Non Severe: N/A
Severe: Measurably reduced Severe: Measurably reduced
Additional criteria that can be used to Determine if Mild or Moderate Malnutrition (Merck Manual 2018)
Mild Moderate Severe
Albumin gm/dl <3.0 gm/dl <2.5 gm/dl <2.0 gm/dl
Pre Albumin mg/dl <15 gm/dl <10 mg/dl <5.0 mg/dl
BMI <18.5 <17 <16
Use of terms such as suspected, likely, concern for, or probable (associated with a specific diagnosis that is being evaluated, monitored, or treated as if it exists) are acceptable and can be coded in the inpatient setting, when documented at the
time of discharge.
Thank you,
Idania Ortega RN BSN
CDI Specialist
available via tiger text
Please use your independent medical judgment in providing your response.
--- NOTE | 2023-12-09 14:29 | PN.CDI ---
CDI
- -
CDI:
Physician Documentation Request
Admit Date: 12/07/23 19:52
Dear Doctor Rakesh,
Clinical Indicators:
Patient readmitted with altered mental status; s/p hospitalization for Sepsis/Covid/Aspiration Pneumonia 10/15 - 12/01.
12/06 H & P, 'Patient transferred to [facility] for acute change in mentation associated with acute Covid 19 without improvement...'Per DC summary: 'our greates suspicion for his cognitive decline is a form of dementia with acute decompensation int he
setting of infections.'
12/07 PN,'unfortunately patient remains with significant confusion and delirium in the setting of covid followed by a prolonged hospitalization with multiple infections'
12/07 Psychiatry PN, 'he returns from that facility to which he was referred for ongoing confusion likely encephalopathy.'
Please clarify which is the most likely etiology of the confusion/altered mental status.
Encephalopathy, (please specify type)
Acute Delirium due to Covid and prolonged hospitalization.
Dementia with acute delirium due to Covid and prolonged hospitalization
Other, please specify
Use of terms such as suspected, likely, concern for, or probable (associated with a specific diagnosis that is being evaluated, monitored, or treated as if it exists) are acceptable and can be coded in the inpatient setting, when documented at the
time of discharge.
Thank you,
Idania Ortega RN BSN
CDI Specialist
available via tiger text
Please use your independent medical judgment in providing your response.
--- NOTE | 2023-12-09 14:54 | CM ---
Reviewed the chart notes. Per PT/OT notes, patient is a maximum assist with mobility. ST will follow peripherally. CM continues to be available to patient/family and is monitoring medical plan for needs at discharge.
Plan: Patient will need SNF/rehab to possible termite renewal inspector placement.
--- NOTE | 2023-12-09 15:00 | W.PN.HOSP.TC ---
Today's Communication/Plan
-
f/u with case managment
Assessment / Plan
Assessment / Plan
Altered Mental Status
Secondary to Covid?
Delirium
- Currently looking into rehab facility, case management involved
- Psychiatry consulted and following
-Currently taking Seroquel
-Confusion and delirium following covid infection with multiple infections
-repeat LP and EEG from [facility] did not show any significant findings
- Status post course of Paxlovid
-continue PT/OT- recommended skilled rehab 1-2 hours a day
-continue TF
Recurrent aspiration pneumonia
Sepsis with Bacteremia
-s/p multiple course of antibiotics
- NPO, non oral meds
- continue tube feeds
- Speech language therpay consulted
Pre-DM
-Today glucose level 120, well controlled
Dysphagia
-currently on tube feedings
Urinary retention:
Hx urethral stricture
Continue to monitor for urinary retention
Past medical problems:
Essential hypertension
Dyslipidemia
Prediabetes mellitus
TIA/brain infarcts
PVD with carotid stenosis status post left CEA
Prostate cancer
DVT prophylaxis:
hep subQ
DNR
Anticipated Discharge: 24 - 48 hours
Subjective/Interval History
-
Date of Service: December 09, 2023
Patient has significant confusion and delirium so was not able to take a history.
Objective Data
-
Labs:
Laboratory Results
12/09/23
05:25
WBC 7.3
Hgb 11.1 L
Hct 33.6 L
Plt Count 227 D
Sodium 141
Potassium 4.4
Chloride 102
Carbon Dioxide 26
BUN 25 H
Creatinine 0.6 L
Glucose 120 H
Calcium 8.7
Total Bilirubin 0.3
AST 33
ALT 34
Alkaline Phosphatase 127 H
Vital Signs:
Vital Signs
Temp Pulse Resp BP Pulse Ox
97.4 F 76 16 157/70 99
12/09/23 07:40 12/09/23 08:48 12/09/23 07:40 12/09/23 08:48 12/09/23 08:00
I&O
12/08/23 12/09/23 12/10/23
06:59 06:59 06:59
Intake Total 1920 / 1920
Output Total 1150 / 1150
Balance 770 / 770
Review of Systems
-
Unable to obtain full review of systems at this time due to: Other (Cognitive impairment)
Physical Exam
-
General: Comfortable
HEENT: Normocephalic
Respiratory: Clear to Auscultation
Cardiac: Regular Rhythm and S1/S2
GI: Soft, Nontender and Peg Tube
Neuro: Awake and Alert; Negative No Motor Deficits
Data Reviewed
-
Labs: Labs Reviewed by me and Discussed with Physician
--- NOTE | 2023-12-09 15:11 | W.PN.UPDATE ---
Update Note
Progress Note Update
seen and examined by me independently in collaboration with the medical device.
Lab data and imaging data reviewed.
Addendum as below :
Patient pleasantly confused.
No further diagnostic workup planned. Continue with the supportive care and behavioral management.Psychiatry following.
Discussed with and daughter at bedside-they are looking at rehab because of his physical limitations at this current time than home discharge.
Case management involved. With his cognitive impairment and behavioral disturbances suspect disposition efforts are not going to be easy.
--- NOTE | 2023-12-09 15:31 | W.PN.UPDATE ---
Update Note
Progress Note Update
returned to see patient in afternoon and touch base w d too at bedside. recounted their experience at [facility] [place]. patient was much the same maybe a bit more restless this afternoon. earlier had had a period of some agitation calmed without
meds. will continue to try to use sedation as little as possible. dr dimas suggested according to having pt speech in afternoon. brought in some poetry books which seemed to engage patient. also encouraged to so passive range of
motion exercises in bed if he will let her.
[2023-12-09 15:40] VITALS: BP 146/68
[2023-12-09] MEDS: LIPITOR 40 MG TUBE (17:46)
[2023-12-09 17:49] LABS: Glucose - Point of Care 135 mg/dl (70-99)
[2023-12-09] MEDS: SEROQUEL 12.5 MG TUBE (21:21)
[2023-12-09 23:51] VITALS: BP 102/41
[2023-12-10 02:07] LABS: Glucose - Point of Care 125 mg/dl (70-99)
[2023-12-10 07:45] VITALS: BP 148/69
[2023-12-10 07:51] LABS: Hematocrit 35.9 % (39.0-52.0); Hemoglobin 11.9 g/dL (13.0-18.0); Mean Corp Hgb Conc. 33.1 g/dL (33.0-37.0); Mean Corpuscular Hgb 32.8 pg (27.0-31.0); Mean Corpuscular Volume 98.9 fL (80.0-94.0); Mean Platelet Volume 11.1 fL (7.4-10.4); Platelet Count 251 10^3/uL (130-400); Red Blood Cell Count 3.63 10^6/uL (4.70-6.10); White Blood Cell Count 8.8 10^3/uL (4.8-10.8)
[2023-12-10 08:23] LABS: ALT (SGPT) 39 U/L (0-50); AST (SGOT) 34 U/L (17-59); Albumin 3.3 g/dl (3.5-5.0); Alkaline Phosphatase 121 U/L (38-126); Blood Urea Nitrogen 22 mg/dl (9-20); Calcium 9.2 mg/dl (8.4-10.2); Carbon Dioxide 33 mmol/L (22-30); Chloride 101 mmol/L (98-107); Glucose 128 mg/dl (70-99); Potassium 4.9 mmol/L (3.5-5.1); Sodium 143 mmol/L (135-145); Total Bilirubin 0.3 mg/dl (0.2-1.3); Total Protein 5.7 g/dl (6.3-8.2); eGFR > 60.00
[2023-12-10 08:54] LABS: Glucose - Point of Care 102 mg/dl (70-99)
[2023-12-10] MEDS: NOVOLOG FLEXPEN-LOW RESISTANCE SC ×3 (09:27→17:26)
[2023-12-10] MEDS: THIAMINE INJECTION 250 MG IV (09:29)
[2023-12-10] MEDS: HEPARIN 5000 UNITS SC ×2 (09:30→19:42)
[2023-12-10] MEDS: LOPRESSOR 50 MG PO ×2 (09:32→19:42)
[2023-12-10] MEDS: LOW STRENGTH ASPIRIN 81 MG TUBE (09:32)
[2023-12-10] MEDS: ALTACE 10 MG PO (09:32)
[2023-12-10 13:40] LABS: Glucose - Point of Care 132 mg/dl (70-99)
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
--- NOTE | 2023-12-10 14:11 | W.PN.HOSP.TC ---
Addendum entered and electronically signed by Steven Cameron MD 12/10/23 15:21:
Seen and examined by me independently in collaboration with the medical examiner.
Lab data and imaging data reviewed.
Addendum as below :
Still fluctuating cognitive function. Not requiring any medications for agitation.
This morning family at bedside finds him little more improved from his cognition standpoint.
They are made aware of the fluctuating nature of behavior in setting of dementia.
Continue with supportive care .
Ongoing dispo efforts.
Original Note:
Today's Communication/Plan
-
Follow-up with case management regarding discharge to a skilled facility
Assessment / Plan
Assessment / Plan
Altered Mental Status
Secondary to Covid?
Delirium
- Patient has fluctuating levels of cognition today (12/09)
- Currently looking into rehab facility, case management involved (12/09)
- Psychiatry consulted (12/08)
-Currently taking Seroquel
-Confusion and delirium following covid infection with multiple infections
-repeat LP and EEG from [facility] did not show any significant findings
- Status post course of Paxlovid
-continue PT/OT- recommended skilled rehab 1-2 hours a day
-continue TF
Recurrent aspiration pneumonia
Sepsis with Bacteremia
-s/p multiple course of antibiotics
- NPO, non oral meds
- continue tube feeds
- Speech language therapy consulted
Pre-DM
-Today glucose level 128, well controlled
Dysphagia
-currently on tube feedings
Urinary retention:
Hx urethral stricture
Continue to monitor for urinary retention
Past medical problems:
Essential hypertension
Dyslipidemia
Prediabetes mellitus
TIA/brain infarcts
PVD with carotid stenosis status post left CEA
Prostate cancer
DVT prophylaxis:
hep subQ
DNR
Anticipated Discharge: 24 - 48 hours
Subjective/Interval History
-
Date of Service: December 10, 2023
No overnight medical events. Patient was fluctuating cognition and not able to take a pertinent history.
Objective Data
-
Labs:
Laboratory Results
12/10/23
07:08
WBC 8.8
Hgb 11.9 L
Hct 35.9 L
Plt Count 251
Sodium 143
Potassium 4.9
Chloride 101
Carbon Dioxide 33 H
BUN 22 H
Creatinine 0.6 L
Glucose 128 H
Calcium 9.2
Total Bilirubin 0.3
AST 34
ALT 39
Alkaline Phosphatase 121
Vital Signs:
Vital Signs
Temp Pulse Resp BP Pulse Ox
97.5 F 72 16 148/69 99
12/10/23 07:45 12/10/23 07:45 12/10/23 07:45 12/10/23 07:45 12/10/23 08:00
I&O
12/09/23 12/10/23 12/11/23
06:59 06:59 06:59
Intake Total 1920 / 1920 960 / 960
Output Total 1150 / 1150 780 / 780
Balance 770 / 770 180 / 180
Review of Systems
-
Unable to obtain full review of systems at this time due to: Other (cognitive impairment)
Physical Exam
-
General: Comfortable
HEENT: Normocephalic
Respiratory: Clear to Auscultation
Cardiac: Regular Rhythm and S1/S2
GI: Soft
Musculoskeletal: No Edema
Neuro: Awake and Alert
Data Reviewed
-
Labs: Labs Reviewed by me and Discussed with Physician
[2023-12-10 15:45] VITALS: BP 98/49
[2023-12-10] MEDS: LIPITOR 40 MG TUBE (17:08)
[2023-12-10 17:18] LABS: Glucose - Point of Care 111 mg/dl (70-99)
[2023-12-10] MEDS: SEROQUEL 12.5 MG TUBE (21:27)
[2023-12-10 23:33] VITALS: BP 101/42
[2023-12-11 00:17] LABS: Glucose - Point of Care 154 mg/dl (70-99)
[2023-12-11 07:45] VITALS: BP 159/105
[2023-12-11] MEDS: NOVOLOG FLEXPEN-LOW RESISTANCE SC ×3 (08:38→17:28)
[2023-12-11] MEDS: HEPARIN 5000 UNITS SC ×2 (08:38→20:40)
[2023-12-11] MEDS: LOW STRENGTH ASPIRIN 81 MG TUBE (08:39)
[2023-12-11] MEDS: THIAMINE INJECTION 250 MG IV (08:40)
[2023-12-11] MEDS: ALTACE 10 MG PO (08:41)
[2023-12-11] MEDS: LOPRESSOR 50 MG PO ×2 (08:41→20:41)
[2023-12-11] MEDS: FLUSH (NSS) 2 FLUSH IV (08:42)
[2023-12-11 11:36] LABS: Glucose - Point of Care 115 mg/dl (70-99)
--- NOTE | 2023-12-11 14:02 | W.PN.HOSP.TC ---
Addendum entered and electronically signed by Steven Cameron MD 12/11/23 15:25:
Seen and examined by me independently in collaboration with the medical nurse.
Lab data and imaging data reviewed.
Addendum as below :
No new overnight issues. Remains pleasantly confused. Not requiring medication for agitation.
Continue with disposition efforts.
Original Note:
Today's Communication/Plan
-
Follow-up with case management about placement for patient
Assessment / Plan
Assessment / Plan
Altered Mental Status
Secondary to Covid?
Delirium
- Patient has fluctuating levels of cognition today, and slept only 4 hours, currently only on quetiapine (12/10)
- Currently looking into rehab facility, case management involved (12/10)
- Psychiatry consulted (12/08)
-Confusion and delirium following covid infection with multiple infections
-repeat LP and EEG from [facility] did not show any significant findings
- Status post course of Paxlovid
-continue PT/OT- recommended skilled rehab 1-2 hours a day
-continue TF
Recurrent aspiration pneumonia
Sepsis with Bacteremia
-s/p multiple course of antibiotics
- NPO, non oral meds
- continue tube feeds
- Speech language therapy consulted
Pre-DM
-Today glucose level 128, well controlled
Dysphagia
-currently on tube feedings
Urinary retention:
Hx urethral stricture
Continue to monitor for urinary retention
Past medical problems:
Essential hypertension
Dyslipidemia
Prediabetes mellitus
TIA/brain infarcts
PVD with carotid stenosis status post left CEA
Prostate cancer
DVT prophylaxis:
hep subQ
DNR
Anticipated Discharge: 24 - 48 hours
Subjective/Interval History
-
Date of Service: December 11, 2023
Patient status fluctuating cognition. Slept only 4 hours last night. Not oriented to time, place, person so cannot take a history.
Objective Data
-
Vital Signs:
Vital Signs
Temp Pulse Resp BP Pulse Ox
98.2 F 65 18 159/105 98
12/11/23 07:45 12/11/23 07:45 12/11/23 07:45 12/11/23 07:45 12/11/23 08:30
I&O
12/10/23 12/11/23 12/12/23
06:59 06:59 06:59
Intake Total 960 / 960 1320 / 1320
Output Total 780 / 780 200 / 200
Balance 180 / 180 1120 / 1120
Review of Systems
-
Unable to obtain full review of systems at this time due to: Dementia
Physical Exam
-
General: Comfortable
HEENT: Normocephalic
Respiratory: Clear to Auscultation
Cardiac: Regular Rhythm and S1/S2
GI: Soft
Musculoskeletal: No Edema
Neuro: Awake and Alert; Negative Oriented
Data Reviewed
-
Labs: Labs Reviewed by me and Discussed with Physician
[2023-12-11 15:30] VITALS: BP 121/65
[2023-12-11 17:19] LABS: Glucose - Point of Care 141 mg/dl (70-99)
[2023-12-11] MEDS: LIPITOR 40 MG TUBE (17:37)
[2023-12-11] MEDS: SEROQUEL 12.5 MG TUBE (21:51)
[2023-12-11 23:29] VITALS: BP 112/42
[2023-12-12 00:16] LABS: Glucose - Point of Care 137 mg/dl (70-99)
[2023-12-12 07:00] LABS: Glucose - Point of Care 113 mg/dl (70-99)
[2023-12-12 07:40] VITALS: BP 119/38
--- NOTE | 2023-12-12 08:15 | W.PN.HOSP.TC ---
Today's Communication/Plan
-
Seroquel. PT OT. Geriatric chair.
Assessment / Plan
Assessment / Plan
Physical exam:
General: Acute on chronically ill
HEENT: Normocephalic, Atraumatic and Moist Mucous Membranes
Respiratory: Clear to Auscultation; Negative Wheezes, Rales or Rhonchi
Cardiac: Regular Rhythm and S1/S2
GI: Soft, Nontender and Nondistended
Musculoskeletal: No Clubbing, No Cyanosis and No Edema
Neuro: Awake, Alert and Disoriented
Psych: Calm
A/P:
Altered Mental Status
Secondary to Covid?
Delirium
- Patient has fluctuating levels of cognition, currently only on quetiapine 12.5 mg nightly.
- Psychiatry on consult
-Confusion and delirium following covid infection with multiple infections
-repeat LP and EEG and Brain MRI from [facility] did not show any significant findings
- Status post course of Paxlovid
-continue PT/OT. research development manager on board -recommended skilled rehab and possible long-term placement upon discharge.
-continue TF
-Geriatric chair
-Discussed with at bedside today on 12/11. We went over all details about his recent hospitalization at [place]. It is of paramount importance to restore sleep-wake cycle.
Recurrent aspiration pneumonia
Sepsis with Bacteremia
-s/p multiple course of antibiotics
- NPO, non oral meds--> changed meds to through tube today on 12/11.
- continue tube feeds
- Speech language therapy consulted
Pre-DM
-Blood sugars at decent levels but some elevated numbers so continue to monitor.
Dysphagia
-currently on tube feedings
Urinary retention:
Hx urethral stricture
Ford catheter removed at [place] and placed on [place] catheter.
Past medical problems:
Essential hypertension
Dyslipidemia
Prediabetes mellitus
TIA/brain infarcts
PVD with carotid stenosis status post left CEA
Prostate cancer
DVT prophylaxis:
hep subQ
DNR
Time spent 55 minutes
Anticipated Discharge: > 48 hours
Subjective/Interval History
-
Date of Service: December 12, 2023
Alert and pleasantly disoriented. Afebrile
Objective Data
-
Vital Signs:
Vital Signs
Temp Pulse Resp BP Pulse Ox
97.4 F 62 18 112/42 98
12/11/23 23:29 12/11/23 23:29 12/11/23 23:29 12/11/23 23:29 12/12/23 00:31
I&O
12/11/23 12/12/23 12/13/23
06:59 06:59 06:59
Intake Total 1320 / 1320 960 / 960
Output Total 200 / 200 200 / 200
Balance 1120 / 1120 760 / 760
[2023-12-12] MEDS: NOVOLOG FLEXPEN-LOW RESISTANCE SC ×2 (08:48→17:08)
[2023-12-12] MEDS: VITAMIN B1 100 MG PO (08:48)
[2023-12-12] MEDS: ALTACE 10 MG PO (08:49)
[2023-12-12] MEDS: LOPRESSOR 50 MG PO (08:49)
[2023-12-12] MEDS: LOW STRENGTH ASPIRIN 81 MG TUBE (08:50)
[2023-12-12] MEDS: HEPARIN 5000 UNITS SC ×2 (08:50→21:32)
--- NOTE | 2023-12-12 09:10 | PTCARENOTE ---
All meds scheduled as PO this AM, notified, meds cleared to be crushed and given through peg tube, meds then changed to tube orders by MD. Will proceed with tube orders moving forward.
[2023-12-12 10:32] VITALS: BP 146/71; PULSE 68
[2023-12-12 10:33] VITALS: BP 146/71; PULSE 68
[2023-12-12 11:25] LABS: Glucose - Point of Care 150 mg/dl (70-99)
[2023-12-12 11:36] LABS: Glucose - Point of Care 150 mg/dl (70-99)
[2023-12-12] MEDS: NOVOLOG FLEXPEN-LOW RESISTANCE 1 UNITS SC (11:55)
--- NOTE | 2023-12-12 14:30 | PTCARENOTE ---
Medsitter removed from this pts room per request by MD to attempt for placement. CM and family both updated and aware, pt assisted back to bed with help of two personnel. Pt resting comfortably in bed at this time.
--- NOTE | 2023-12-12 14:52 | CM ---
Reviewed the chart notes and spoke with the patient and spouse at the bedside. Patient with nonsensical speech. Discussed SNF/rehabs. Patient's spouse gave permission to send referrals to area SNFs. CM continues to be available to patient/family
and is monitoring medical plan for needs at discharge.
Plan: Discharge to SNF/rehab. Referral sent with [facility].
[2023-12-12 15:35] VITALS: BP 137/59
[2023-12-12 17:09] LABS: Glucose - Point of Care 102 mg/dl (70-99)
[2023-12-12] MEDS: LIPITOR 40 MG TUBE (17:09)
[2023-12-12 17:47] LABS: Glucose - Point of Care 98 mg/dl (70-99)
[2023-12-12] MEDS: SEROQUEL 12.5 MG TUBE (21:31)
[2023-12-12] MEDS: LOPRESSOR 50 MG TUBE (21:31)
[2023-12-12 23:19] VITALS: BP 134/51
[2023-12-13 00:13] LABS: Glucose - Point of Care 132 mg/dl (70-99)
[2023-12-13] MEDS: NOVOLOG FLEXPEN-LOW RESISTANCE SC ×3 (00:22→18:53)
[2023-12-13 06:11] LABS: Glucose - Point of Care 162 mg/dl (70-99)
[2023-12-13] MEDS: NOVOLOG FLEXPEN-LOW RESISTANCE 1 UNITS SC (06:12)
[2023-12-13 07:40] VITALS: BP 160/70
[2023-12-13] MEDS: ALTACE 10 MG TUBE (08:15)
[2023-12-13] MEDS: LOW STRENGTH ASPIRIN 81 MG TUBE (08:15)
[2023-12-13] MEDS: VITAMIN B1 100 MG TUBE (08:16)
[2023-12-13] MEDS: HEPARIN 5000 UNITS SC ×2 (08:17→21:32)
[2023-12-13] MEDS: LOPRESSOR 50 MG TUBE ×2 (08:17→21:31)
--- NOTE | 2023-12-13 08:33 | W.PN.HOSP.TC ---
Today's Communication/Plan
-
Continue Seroquel
Assessment / Plan
Assessment / Plan
Physical exam:
General: Acute on chronically ill
HEENT: Normocephalic, Atraumatic and Moist Mucous Membranes
Respiratory: Clear to Auscultation; Negative Wheezes, Rales or Rhonchi
Cardiac: Regular Rhythm and S1/S2
GI: Soft, Nontender and Nondistended
Musculoskeletal: No Clubbing, No Cyanosis and No Edema
Neuro: Awake, Alert and Disoriented
Psych: Calm
A/P:
Altered Mental Status
Secondary to Covid?
Delirium
- Patient has fluctuating levels of cognition, currently only on quetiapine 12.5 mg nightly.
- Psychiatry on consult
-Confusion and delirium following covid infection with multiple infections
-repeat LP and EEG and Brain MRI from [facility] did not show any significant findings
- Status post course of Paxlovid
-continue PT/OT. meeting manager on board -recommended skilled rehab and possible long-term placement upon discharge.
-continue TF
-Geriatric chair
-Off med sitter
-Discussed with at bedside on 12/11.
-Continues to aim to restore sleep-wake cycle.
Recurrent aspiration pneumonia
Sepsis with Bacteremia
-s/p multiple course of antibiotics
- NPO, non oral meds--> changed meds to through tube today on 12/11.
- continue tube feeds
- Speech language therapy consulted
Pre-DM
-Blood sugars at decent levels but some elevated numbers so continue to monitor.
Dysphagia
-currently on tube feedings
Urinary retention:
Hx urethral stricture
[facility] and [facility] [place] catheter.
Past medical problems:
Essential hypertension
Dyslipidemia
Prediabetes mellitus
TIA/brain infarcts
PVD with carotid stenosis status post left CEA
Prostate cancer
DVT prophylaxis:
hep subQ
DNR
Anticipated Discharge: > 48 hours
Subjective/Interval History
-
Date of Service: December 13, 2023
Patient alert this morning. Has not required any extra sedatives. Afebrile
Objective Data
-
Vital Signs:
Vital Signs
Temp Pulse Resp BP Pulse Ox
98.7 F 69 17 160/70 98
12/12/23 23:19 12/12/23 23:19 12/12/23 23:19 12/13/23 08:17 12/13/23 01:01
I&O
12/12/23 12/13/23 12/14/23
06:59 06:59 06:59
Intake Total 960 / 960 1020 / 1020
Output Total 200 / 200
Balance 760 / 760 1020 / 1020
[2023-12-13 11:34] LABS: Glucose - Point of Care 129 mg/dl (70-99)
--- NOTE | 2023-12-13 11:58 | CM ---
Reviewed the chart notes. Patient's medsitter discontinued yesterday. Patient remains in a carrington-chair. CM continues to be available to patient/family and is monitoring medical plan for needs at discharge.
Plan: Discharge to SNF/rehab once bed found and medically stable.
[2023-12-13 15:45] VITALS: BP 120/66
--- NOTE | 2023-12-13 16:29 | W.PN.UPDATE ---
Update Note
Progress Note Update
Pt seen, sitting up in chair, with his present. Pt alert, sensorium appears intact, but he continues to be disoriented, not able to have relevant conversation. Pt occupied with apron that has buttons, zipper- not able to manage them.
Behavior has been manageable with Seroquel 12.5 mg HS.
Imp: Delirium with intermittent agitation- improving slowly. No recent need for prn medications
Rec: continue current mgt. Will follow peripherally
--- NOTE | 2023-12-13 16:43 | PTOTSP ---
Speech Language Pathology
[place] text received from RN asking if M[employer] PUSHER could follow with pt per request. Plan is for peripheral follow up 1x/week, as pt largely unable to participate in therapy and is able to implement effortful swallow exercises as pt waxes/wanes
throughout the day. Per RN, appears upset that pt has not been seen by MOLD [employer] PUSHER in a few days and has not had repeat VSE. VSE has been held given cognitive status and minimal ability to attend to task coupled with wet vocal quality and coughing
with ice chips alone at bedside. Discussed situation with MD. Will plan for repeat VSE 12/13 if pt able to participate to assess for any progress and to aid in further decision making.
--- NOTE | 2023-12-13 17:19 | PTCARENOTE ---
pt remains on jevity 1.5 tube feeds at 55ml/hr with a 25ml/hr flush. pt is aaox1 and is making improvements but has confused conversation. pt inc of bowel and bladder, received hot soap and water bed bath this afternoon and moisture barrier was
applied to sacrum and b/l buttock. pt continues to slide down when in bed, pt continuously adjusted. pt oob to carrington chair for this nurse from 1030 to end of shift. pt comfortable and pleasant. pt remains on bed and chair alarms. this nurse reached
out to speech and MD about evaluation and plan of care per request. VSE ordered for tomorrow morning. oral care essential in room. done 4x with this nurse. thick green/ yellow phlegm/ sputum in pt mouth each time. suction set up at bedside. pt
not understanding to understanding education of spitting and not swallowing phlegm. proper charting within patient chart.
[2023-12-13] MEDS: LIPITOR 40 MG TUBE (17:53)
[2023-12-13 18:52] LABS: Glucose - Point of Care 118 mg/dl (70-99)
[2023-12-13] MEDS: SEROQUEL 12.5 MG TUBE (21:31)
[2023-12-13 23:32] VITALS: BP 117/95
[2023-12-14 00:15] LABS: Glucose - Point of Care 124 mg/dl (70-99)
[2023-12-14] MEDS: NOVOLOG FLEXPEN-LOW RESISTANCE SC ×2 (00:34→12:11)
[2023-12-14 05:53] LABS: Glucose - Point of Care 173 mg/dl (70-99)
[2023-12-14] MEDS: NOVOLOG FLEXPEN-LOW RESISTANCE 1 UNITS SC ×2 (05:57→17:45)
[2023-12-14 07:00] VITALS: BP 128/49
[2023-12-14] MEDS: ALTACE 10 MG TUBE (07:49)
[2023-12-14] MEDS: LOW STRENGTH ASPIRIN 81 MG TUBE (07:49)
[2023-12-14] MEDS: VITAMIN B1 100 MG TUBE (07:49)
[2023-12-14] MEDS: HEPARIN 5000 UNITS SC ×2 (07:49→19:41)
[2023-12-14] MEDS: LOPRESSOR 50 MG TUBE ×2 (07:53→20:48)
--- NOTE | 2023-12-14 08:48 | W.PN.HOSP.TC ---
Addendum entered and electronically signed by Júnior Bullard MD 12/14/23 16:37:
Today we had a meeting with patient, risk-management, psychiatrist, PT, speech therapy, transplant case manager, nurse education and development manager, attending nurse. We discussed various aspects of his care and able to vent some of her concerns.
Original Note:
Today's Communication/Plan
-
Plan for VSE.
Assessment / Plan
Assessment / Plan
Physical exam:
General: Acute on chronically ill
HEENT: Normocephalic, Atraumatic and Moist Mucous Membranes
Respiratory: Clear to Auscultation; Negative Wheezes, Rales or Rhonchi
Cardiac: Regular Rhythm and S1/S2
GI: Soft, Nontender and Nondistended
Musculoskeletal: No Clubbing, No Cyanosis and No Edema
Neuro: Awake, Alert and Disoriented
Psych: Calm
A/P:
Altered Mental Status
Secondary to Covid?
Delirium
- Patient has fluctuating levels of cognition, currently only on quetiapine 12.5 mg nightly.
- Psychiatry on consult
-Confusion and delirium following covid infection with multiple infections
-repeat LP and EEG and Brain MRI from [facility] did not show any significant findings
- Status post course of Paxlovid
-continue PT/OT. outside sales account manager on board -recommended skilled rehab and possible long-term placement upon discharge.
-continue TF
-Geriatric chair
-Off med sitter
-Discussed with at bedside prior.
-Continues to aim to restore sleep-wake cycle.
-Discussed with psychiatry today on 12/13
-Plan to repeat VSE today per speech therapy
Recurrent aspiration pneumonia
Sepsis with Bacteremia
-s/p multiple course of antibiotics
- NPO, non oral meds--> changed meds to through tube today on 12/11.
- continue tube feeds
- Speech language therapy consulted
Pre-DM
-Blood sugars at decent levels but some elevated numbers so continue to monitor.
Dysphagia
-currently on tube feedings
Urinary retention:
Hx urethral stricture
Ford catheter removed at [place] and placed on [place] catheter.
Past medical problems:
Essential hypertension
Dyslipidemia
Prediabetes mellitus
TIA/brain infarcts
PVD with carotid stenosis status post left CEA
Prostate cancer
DVT prophylaxis:
hep subQ
DNR
Anticipated Discharge: > 48 hours
Subjective/Interval History
-
Date of Service: December 14, 2023
Mild agitation overnight but has not required sedatives. Afebrile
Objective Data
-
Vital Signs:
Vital Signs
Temp Pulse Resp BP Pulse Ox
97.7 F 72 18 128/69 100
12/14/23 07:00 12/14/23 07:53 12/14/23 07:00 12/14/23 07:53 12/14/23 07:00
I&O
12/13/23 12/14/23 12/15/23
06:59 06:59 06:59
Intake Total 1020 / 1020 2009
Balance 1020 / 1020 2009
--- NOTE | 2023-12-14 11:32 | W.PN.UPDATE ---
Update Note
Progress Note Update
patient seen chart reviewed. spoke with nursing and dr flor. the patient had been doing better vis a vis agitation but i am told last evening he was agitated. he did not receive a prn. this am when i saw him he was calm but he remains confused.
would continue to try to not use sedating medication and to calm him if he is agitated by non medication means. will speak w patient's when she comes in this afternoon. patient having speech eval today. will follow
--- NOTE | 2023-12-14 11:59 | PTCARENOTE ---
Patient educated on low fat diet and provided a low fat diet packet. Motrin given per prn order. Per MD monitor pain 2-3 hours, have patient order low fat tray and reassess pain.
[2023-12-14 12:07] LABS: Glucose - Point of Care 110 mg/dl (70-99)
--- NOTE | 2023-12-14 13:15 | PTOTSP ---
Speech Language Pathology
VIDEOFLUOROSCOPIC SWALLOWING EXAMINATION (VSE) completed/ Moderate oral dysphagia characterized by decreased bolus formation and A-P transit. Mild oral residue noted. Decreased oral containment noted with initiation of swallow at level of
vallecula x1. Otherwise, timely swallow initiation.
Moderate pharyngeal dysphagia noted. On first swallow of study with thin liquids via tsp, no contrast entered esophagus. Silent aspiration of all trials provided (thin liquids via tsp/cup, mildly thick liquids via tsp/cup, 1/8th tsp of puree).
Deferred other trials given significant dysphagia/aspiration and risk for airway obstruction.
Swallow largely nonfunctional. Dysphagia has worsened since last VSE completed 11/08/23. Increased amount of aspiration noted this date. Aspiration remains silent in nature. Pt has been minimally able to participate in therapy since initially
admitted to 10/16/23. Pt only able to complete a few effortful swallow exercises sporadically throughout day. Unable to complete other exercises secondary to cognitive status. Cognition continues to be largest barrier to improvement overall,
including swallowing. Discussed with pt and after study, and they were shown images. Pt unable to attend to task, pulling at gown and trying to get up out of chair. verbalized understanding. Still with unrealistic expectations. Stated
it was good VSE was completed so that we know pt was aspirating, although this was previously documented on VSE 11/07 and extensively discussed with pt. Discussed minimal ability to participate in therapy at this time.
Recommend:
(1) NPO
(2) Oral care 4x/day with suctioning as needed
(3) Non-oral meds
(4) Allow ice chips post oral care given supervision per Aspiration Risk Hydration Protocol (ARHP)
(5) PROOFER PREPRESS to follow peripherally, as not able to actively participate in therapy other than what family is currently implementing. Will change plan if pt able to participate further
[2023-12-14] MEDS: D-VI-SOL (Vitamin D3) 10 MCG TUBE (14:00)
[2023-12-14 14:48] VITALS: BP 117/58
[2023-12-14 15:30] VITALS: BP 106/53
[2023-12-14] MEDS: LIPITOR 40 MG TUBE (16:58)
--- NOTE | 2023-12-14 17:00 | CM ---
Addendum entered by Kimberly Gutierrez RN 12/14/23 17:08:
CM explained that she if off tomorrow, but there will be a showcase maker assigned to the patient for continuation of care. CM continues to be available to patient/family and is monitoring medical plan for needs at discharge.
Plan: Discharge to SNF/rehab once off [place]-chair and bed found.
Original Note:
Reviewed the chart notes and spoke with the patient's spouse, [id number], PT, ST, attending, RN, 2N manager e commerce, and director in a meeting that took place in the formerly [facility]. Spouse and [id number] expressed various concerns regarding not
receiving PT/OT/ST daily and not happy that many CMs have been involved in the patient's care, including prior hospitalization care/ The spouse struggles with understanding the discharge process from CM. Provided the spouse with the responses
received from located within [facility] SNFs. Some interested, others declined for various reasons. CM suggested she review the list and possibly visit several facilities that she found of interest. CM and managers reassured the spouse and hounji-sw-pda that staff
record plans in the progress notes and sticky notes on our work sheets which are accessed through [facility]. Patient's spouse inquired about [facility] in [place]. Attempted to explain that [facility] is an acute rehab and that at this time
the patient would not qualify. CM explained that once the patient is in rehab there will be goals set for the patient to reach and if the patient plateaus the facility can no long bill insurance and it would be come private pay.
[2023-12-14 17:45] LABS: Glucose - Point of Care 176 mg/dl (70-99)
[2023-12-14 20:37] VITALS: BP 133/90
[2023-12-14] MEDS: SEROQUEL 12.5 MG TUBE (21:01)
[2023-12-14 22:57] VITALS: BP 119/50
[2023-12-15 00:20] LABS: Glucose - Point of Care 151 mg/dl (70-99)
[2023-12-15] MEDS: NOVOLOG FLEXPEN-LOW RESISTANCE 1 UNITS SC (00:20)
[2023-12-15 06:14] LABS: Glucose - Point of Care 132 mg/dl (70-99)
[2023-12-15] MEDS: NOVOLOG FLEXPEN-LOW RESISTANCE SC ×3 (06:19→17:42)
[2023-12-15 07:05] VITALS: BP 111/74
[2023-12-15] MEDS: HEPARIN 5000 UNITS SC ×2 (08:31→21:00)
[2023-12-15] MEDS: LOPRESSOR 50 MG TUBE ×2 (08:31→20:38)
[2023-12-15] MEDS: VITAMIN B1 100 MG TUBE (08:31)
[2023-12-15] MEDS: D-VI-SOL (Vitamin D3) 10 MCG TUBE (08:31)
[2023-12-15] MEDS: LOW STRENGTH ASPIRIN 81 MG TUBE (08:31)
[2023-12-15] MEDS: ALTACE 10 MG TUBE (08:31)
--- NOTE | 2023-12-15 09:21 | W.PN.HOSP.TC ---
Today's Communication/Plan
-
Discharge planning in progress.
Assessment / Plan
Assessment / Plan
Physical exam:
General: Acute on chronically ill
HEENT: Normocephalic, Atraumatic and Moist Mucous Membranes
Respiratory: Clear to Auscultation; Negative Wheezes, Rales or Rhonchi
Cardiac: Regular Rhythm and S1/S2
GI: Soft, Nontender and Nondistended
Musculoskeletal: No Clubbing, No Cyanosis and No Edema
Neuro: Awake, Alert and Disoriented
Psych: Calm
A/P:
Altered Mental Status
Secondary to Covid?
Delirium
- Patient has fluctuating levels of cognition, currently only on quetiapine 12.5 mg nightly.
- Psychiatry on consult
-Confusion and delirium following covid infection with multiple infections
-repeat LP and EEG and Brain MRI from [facility] did not show any significant findings
- Status post course of Paxlovid
-continue PT/OT. alterations manager on board -recommended skilled rehab and possible long-term placement upon discharge.
-continue TF
-Geriatric chair
-Off med sitter
-Discussed with at bedside prior.
-Continues to aim to restore sleep-wake cycle.
-Discussed with psychiatry yesterday
-Repeated VSE yesterday and still significant dysphagia.
-We had a meeting with different services representatives yesterday and voiced her concerns.
-Discussed with friend at bedside today and will discuss with later when she comes in.
-Discussed with RN today
-alterations manager working on discharge disposition
Recurrent aspiration pneumonia
Sepsis with Bacteremia
-s/p multiple course of antibiotics
- NPO, non oral meds--> changed meds to through tube on 12/11.
- continue tube feeds
- Speech language therapy consulted
Pre-DM
-Blood sugars at decent levels but some elevated numbers so continue to monitor.
Dysphagia
-currently on tube feedings
Urinary retention:
Hx urethral stricture
Ford catheter removed at [place] and placed on [place] catheter.
Past medical problems:
Essential hypertension
Dyslipidemia
Prediabetes mellitus
TIA/brain infarcts
PVD with carotid stenosis status post left CEA
Prostate cancer
DVT prophylaxis:
hep subQ
DNR
Anticipated Discharge: > 48 hours
Subjective/Interval History
-
Date of Service: December 15, 2023
Slept last night. Alert this morning. Has not required any sedatives.
Objective Data
-
Vital Signs:
Vital Signs
Temp Pulse Resp BP Pulse Ox
98.6 F 97 18 111/74 99
12/15/23 07:05 12/15/23 07:05 12/15/23 07:05 12/15/23 07:05 12/15/23 07:05
I&O
12/14/23 12/15/23 12/16/23
06:59 06:59 06:59
Intake Total 2009
Balance 2009
[2023-12-15 12:02] LABS: Glucose - Point of Care 125 mg/dl (70-99)
[2023-12-15 13:15] VITALS: BP 123/49; PULSE 71; O2SAT 96
[2023-12-15 15:36] VITALS: BP 120/50
--- NOTE | 2023-12-15 15:41 | W.PN.UPDATE ---
Update Note
Progress Note Update
Pt seen at bedside, chart reviewed. Pts present today with him. Pt sitting up in chair with tray table helping him stay seated. Has a ese with various sensory objects on it which he is seen pulling at intermittently. says that he used it
at [employer] and it helped him when feeling agitated - pulls at the ese rather than at lines. Pt is pleasant and cooperative, though remains confused and difficult to have meaningful conversation with. Not oriented - has brought various things
from home to keep in the room to help with orientation and have familiar objects around him. Has not been notably agitated since yesterday, nor needed PRNs.
No changes indicated at this time
--- NOTE | 2023-12-15 17:16 | CM ---
Met with patient's at her request. She wanted to review facilities that she requested for SNF. Patient's stated that she would like patient to transfer to [facility] if possible. She is aware that right now there is no bed
availability. Patient's stated that she would consider [facility] as they are willing to offer a bed. Will determine if [facility] has any upcoming bed availability.
Plan: Case management will continue to follow and assist with discharge planning. SNF when stable.
[2023-12-15] MEDS: LIPITOR 40 MG TUBE (17:36)
[2023-12-15 17:43] LABS: Glucose - Point of Care 128 mg/dl (70-99)
[2023-12-15 20:36] VITALS: BP 128/70
[2023-12-15] MEDS: SEROQUEL 12.5 MG TUBE (21:27)
[2023-12-15 23:53] VITALS: BP 110/46
[2023-12-16] LABS: Glucose - Point of Care 176 mg/dl (70-99)
[2023-12-16] MEDS: NOVOLOG FLEXPEN-LOW RESISTANCE 1 UNITS SC (00:05)
[2023-12-16 06:10] LABS: Glucose - Point of Care 121 mg/dl (70-99)
[2023-12-16] MEDS: NOVOLOG FLEXPEN-LOW RESISTANCE SC ×3 (06:24→17:14)
[2023-12-16 07:35] VITALS: BP 132/100
[2023-12-16] MEDS: STERILE WATER FOR INJECTION 2.1 ML IM ×2 (09:35→17:13)
[2023-12-16] MEDS: ZYPREXA 5 MG IM ×2 (09:35→17:14)
--- NOTE | 2023-12-16 09:45 | FALL ---
Description of Fall:
This RN heard sound of alarm going off in pt room. Upon arrival to pt room pt found to be sitting in front of Gerichair with back against lower part of chair. This RN called for assist. Pt extremely agitated and assist x4 back to bed due to
combativeness. notified. Pt restrained in bed as ordered with assist of multiple RNs, drawing kiln supervisor, and PCT. Family updated of event.
Injuries Noted:
None noted
Action Taken:
MD at bedside to assess pt, no new orders at this time, and no injuries noted at this time.
Name of Provider Notified: MD Bullard
--- NOTE | 2023-12-16 09:51 | W.PN.HOSP.TC ---
Addendum entered and electronically signed by Júnior Bullard MD 12/17/23 09:44:
Severe Protein Calorie Malnutrition
Addendum entered and electronically signed by Júnior Bullard MD 12/16/23 16:39:
updated today
Original Note:
Today's Communication/Plan
-
Continue current management and discharge disposition efforts
Assessment / Plan
Assessment / Plan
Physical exam:
General: Acute on chronically ill
HEENT: Normocephalic, Atraumatic and Moist Mucous Membranes
Respiratory: Clear to Auscultation; Negative Wheezes, Rales or Rhonchi
Cardiac: Regular Rhythm and S1/S2
GI: Soft, Nontender and Nondistended
Musculoskeletal: No Clubbing, No Cyanosis and No Edema
Neuro: Awake, Alert and Disoriented
Psych: Calm
A/P:
Altered Mental Status
Secondary to Covid?
Delirium
- Patient has fluctuating levels of cognition, currently only on quetiapine 12.5 mg nightly.
- Psychiatry on consult
-Confusion and delirium following covid infection with multiple infections
-repeat LP and EEG and Brain MRI from [facility] did not show any significant findings
- Status post course of Paxlovid
-continue PT/OT. senior hr manager on board -recommended skilled rehab and possible long-term placement upon discharge.
-continue TF
-Geriatric chair
-Off med sitter
-Discussed with at bedside prior.
-Continues to aim to restore sleep-wake cycle.
-Discussed with psychiatry yesterday
-Repeated VSE yesterday and still significant dysphagia.
-We had a meeting with different services representatives yesterday and voiced her concerns.
-Discussed with RN today
-We have been in touch with every day. Will update later today about today event.
-senior hr manager working on discharge disposition
Fall:
No head trauma
Physical exam unremarkable today.
No need for further images
Recurrent aspiration pneumonia
Sepsis with Bacteremia
-s/p multiple course of antibiotics
- NPO, non oral meds--> changed meds to through tube on 12/11.
- continue tube feeds
- Speech language therapy consulted
Pre-DM
-Blood sugars at decent levels but some elevated numbers so continue to monitor.
Dysphagia
-currently on tube feedings
Urinary retention:
Hx urethral stricture
Ford catheter removed at [place] and placed on [place] catheter.
Past medical problems:
Essential hypertension
Dyslipidemia
Prediabetes mellitus
TIA/brain infarcts
PVD with carotid stenosis status post left CEA
Prostate cancer
DVT prophylaxis:
hep subQ
DNR
Anticipated Discharge: > 48 hours
Subjective/Interval History
-
Date of Service: December 16, 2023
Patient was agitated earlier this morning and did require some small dose sedative. Also he slid off the chair but no head trauma or pelvis or hip trauma. I came and examined him after the event.
Objective Data
-
Vital Signs:
Vital Signs
Temp Pulse Resp BP Pulse Ox
98.4 F 116 18 132/100 96
12/16/23 07:35 12/16/23 07:35 12/16/23 07:35 12/16/23 07:35 12/16/23 07:35
I&O
12/15/23 12/16/23 12/17/23
06:59 06:59 06:59
Intake Total 2009 960 / 960
Balance 2009 960 / 960
--- NOTE | 2023-12-16 10:00 | PTCARENOTE ---
During morning rounds pt found to be increasingly agitated. Attempts to redirect pt unsuccessful. Pt placed in Gerichair as ordered with no resolve in behavior. Pt removed IV while in Gerichair. notified. New order for one time dose of IM Zyprexa
given, and pt put back in bed with assist of Bonita DANIEL. Pt unable to remain upright and above 30 degrees in bed therefore Tube feeds being held as well at this time MD aware for pt safety and aspiration risk. Bilateral soft limb wrist restraints and
4 side rails up and pt placed in them for protective measures as ordered. Family updated and educated at bedside. understands measures in place and accepting of safety precautions in place due to pt agitation.
--- NOTE | 2023-12-16 10:28 | PN.CDI ---
CDI
- -
CDI:
Physician Documentation Request
Admit Date: 12/07/23 19:52
Dear Doctor Aleah,
Clinical Indicators:
Patient admitted with altered mental status.
12/07 note/assessment: -Muscle loss: Calf severe Quads severe Clavicle moderate
-Unintentional weight loss >5% in 1 month
-'Due to weight loss and observations of fat/muscle loss, pt meeting criteria for severe
protein/calorie malnutrition (ASPEN/AND guidelines, chronic illness).
Based on the above information and your assessment, which of the following most accurately represents the patient's nutritional status?
Severe Protein Calorie Malnutrition
Other (please specify)
Ball Criteria ([facility] Hospitalist 2017)
2 or more criteria must be present for either
non severe or severe malnutrition
Note that the criteria differs related to the
presence of an acute or chronic illness
Acute Illness Chronic Illness
Energy Intake Non Severe: <75% for >7 days Non Severe: <75% for >1 month
Severe: <50% for >5 days Severe: <75% for >1 month
Weight Loss Non Severe: 1-2% over 1 week Non Severe: 5% over 1 month
5% over 1 month 7.5% over 3 months
7.5% over 3 months 10% over 6 months
1 year N/A 20% over 1 year
Severe: >2% over 1 week Severe: >5% over 1 month
>5% over 1 month >7.5% over 3 months
>7.5% over 3 months >10% over 6 months
1 year N/A >20% over 1 year
Body Fat Non Severe: Mild Decrease Non Severe: Mild Loss
Severe: Moderate Decrease Severe: Severe Loss
Muscle Mass Non Severe: Mild Decrease Non Severe: Mild Loss
Severe: Moderate Decrease Severe: Severe Loss
Fluid Accumulation Non Severe: Mild Accumulation Non Severe: Mild Accumulation
Severe: Moderate to severe Severe: Moderate to severe
accumulation accumulation
Reduced Car Construction Superintendent Strength Non Severe: N/A Non Severe: N/A
Severe: Measurably reduced Severe: Measurably reduced
Additional criteria that can be used to Determine if Mild or Moderate Malnutrition (Merck Manual 2018)
Mild Moderate Severe
Albumin gm/dl <3.0 gm/dl <2.5 gm/dl <2.0 gm/dl
Pre Albumin mg/dl <15 gm/dl <10 mg/dl <5.0 mg/dl
BMI <18.5 <17 <16
Use of terms such as suspected, likely, concern for, or probable (associated with a specific diagnosis that is being evaluated, monitored, or treated as if it exists) are acceptable and can be coded in the inpatient setting, when documented at the
time of discharge.
Thank you,
Idania Ortega RN BSN
CDI Specialist
available via tiger text
Please use your independent medical judgment in providing your response.
[2023-12-16] MEDS: D-VI-SOL (Vitamin D3) 10 MCG TUBE (10:33)
[2023-12-16] MEDS: LOPRESSOR 50 MG TUBE ×2 (10:40→21:27)
[2023-12-16] MEDS: LOW STRENGTH ASPIRIN 81 MG TUBE (10:40)
[2023-12-16] MEDS: VITAMIN B1 100 MG TUBE (10:40)
[2023-12-16] MEDS: ALTACE 10 MG TUBE (10:41)
[2023-12-16] MEDS: HEPARIN 5000 UNITS SC ×2 (10:42→21:26)
[2023-12-16 14:05] LABS: Glucose - Point of Care 103 mg/dl (70-99)
[2023-12-16 15:40] VITALS: BP 130/50
--- NOTE | 2023-12-16 15:48 | CM ---
Reviewed the chart notes and sent updated clinicals to [facility] in [place]. Patient was placed in soft wrist restraints within the last 24 hours. Nava-chair continues. CM continues to be available to patient/family and is monitoring medical
plan for needs at discharge.
Plan: Discharge to SNF/rehab when off restraints for at least 24hours and bed found.
[2023-12-16] MEDS: LIPITOR 40 MG TUBE (17:11)
[2023-12-16 17:17] LABS: Glucose - Point of Care 108 mg/dl (70-99)
--- NOTE | 2023-12-16 18:56 | W.PN.UPDATE ---
Update Note
Progress Note Update
Pt laying in bed in soft restraints - observed to be trying to climb out of bed, leg hanging off bedrail quite uncomfortably. Remains disoriented, unable to meaningfully answer questions, however is fairly calm and redirectable - was able to be
repositioned back onto bed with aid of staff.
No changes to medication regimen, continue to minimize use of medication as pt does respond to redirection - reported yesterday that she got him a ese which he can wear like an apron while in bed. [facility] that he uses when sitting has been
helpful so this may help with avoiding restraints while in bed once it arrives.
[2023-12-16] MEDS: SEROQUEL 12.5 MG TUBE (21:27)
[2023-12-16 23:14] VITALS: BP 101/54
[2023-12-17 00:36] LABS: Glucose - Point of Care 112 mg/dl (70-99)
[2023-12-17] MEDS: NOVOLOG FLEXPEN-LOW RESISTANCE SC ×4 (02:08→17:45)
--- NOTE | 2023-12-17 05:52 | PTCARENOTE ---
Received pt from previous RN in restraints. Pt spent a majority of the shift intermittently restless/agitated. Pt had a calm period [id number], connected pt to tube feed during this time. Pt disconnected from tube feed 0000; pt high risk for
aspiration. Pt repositioned frequently but due to agitation/confusion, incapability to be reoriented, and restlessness, unable to keep pt's HOB at 30 degrees to safely administer tube feeds as pt continues to scoot himself to the bottom of the bed
despite restraints. Pt not a candidate to be removed from restraints at this time.
[2023-12-17 07:07] LABS: Glucose - Point of Care 93 mg/dl (70-99)
[2023-12-17 07:39] LABS: % Basophils 0.7 % (0-2); % Immature Granulocytes 0.3 % (0-0.5); % Lymphocytes 28.7 % (20.5-51.1); % Monocytes 9.3 % (1.7-9.3); Absolute Basophils 0.1 10^3/uL (0-0.2); Absolute Monocytes 0.6 10^3/uL (0.1-0.6); Absolute Neutrophils 4.1 10^3/uL (1.4-6.5); Hematocrit 35.6 % (39.0-52.0); Hemoglobin 11.3 g/dL (13.0-18.0); Mean Corp Hgb Conc. 31.7 g/dL (33.0-37.0); Mean Corpuscular Hgb 32.5 pg (27.0-31.0); Mean Corpuscular Volume 102.3 fL (80.0-94.0); Mean Platelet Volume 10.6 fL (7.4-10.4); Nucleated Red Blood Cells % 0 % (-); Platelet Count 286 10^3/uL (130-400); Red Blood Cell Count 3.48 10^6/uL (4.70-6.10); Red Cell Dist. Width 14.6 % (11.5-14.5); White Blood Cell Count 6.8 10^3/uL (4.8-10.8)
[2023-12-17 07:40] VITALS: BP 151/70
[2023-12-17 07:50] LABS: INR 1.17; PT 14.8 Sec (11.4-14.6)
[2023-12-17 08:25] LABS: ALT (SGPT) 45 U/L (0-50); AST (SGOT) 46 U/L (17-59); Albumin 3.4 g/dl (3.5-5.0); Alkaline Phosphatase 106 U/L (38-126); Blood Urea Nitrogen 43 mg/dl (9-20); Calcium 9.5 mg/dl (8.4-10.2); Carbon Dioxide 31 mmol/L (22-30); Chloride 110 mmol/L (98-107); Glucose 110 mg/dl (70-99); Potassium 4.2 mmol/L (3.5-5.1); Sodium 152 mmol/L (135-145); Total Bilirubin 0.7 mg/dl (0.2-1.3); Total Protein 5.9 g/dl (6.3-8.2); eGFR > 60.00
--- NOTE | 2023-12-17 09:01 | W.PN.HOSP.TC ---
Addendum entered and electronically signed by Júnior Bullard MD 12/17/23 17:25:
had another episode of agitation and went back and evaluated patient and reexamined him- he had to be placed on 4 point restraints although by the time of my eval he was much calmer- discussed with family and RN at bedside.
Original Note:
Today's Communication/Plan
-
Hypotonic IV fluids. Increase Seroquel
Assessment / Plan
Assessment / Plan
Physical exam:
General: Acute on chronically ill
HEENT: Normocephalic, Atraumatic and Dry Mucous Membranes
Respiratory: Clear to Auscultation; Negative Wheezes, Rales or Rhonchi
Cardiac: Regular Rhythm and S1/S2
GI: Soft, Nontender and Nondistended
Musculoskeletal: No Clubbing, No Cyanosis and No Edema
Neuro: Awake, Alert and Disoriented
Psych: Calm
A/P:
Altered Mental Status
Secondary to Covid?
Delirium
Hypernatremia now contributing
- Patient has fluctuating levels of cognition, he had been only on quetiapine 12.5 mg nightly--> psychiatry will increase today Seroquel to 25 mg nightly and Seroquel 1.5 mg every 12 hours as needed.
- Psychiatry on consult
-Confusion and delirium following covid infection with multiple infections
-repeat LP and EEG and Brain MRI from [facility] did not show any significant findings
- Status post course of Paxlovid
-Required a couple doses of Zyprexa IM yesterday
-Since mental status was worse over the last 24 hours we repeated blood work and CT of the head and CXR and so far only abnormality is hypernatremia which certainly contributing to mental status--> IV fluids and also adjusting antipsychotics today
as well.
-Updated at bedside today on 12/16
Hypernatremia:
Based on free water deficit we will start him on hypotonic IV fluids
Monitor sodium
Fall:
No head trauma
Physical exam unremarkable today.
No need for further images
Recurrent aspiration pneumonia
Sepsis with Bacteremia
-s/p multiple course of antibiotics
- NPO, non oral meds--> changed meds to through tube on 12/11.
- continue tube feeds
- Speech language therapy consulted
Pre-DM
-Blood sugars at decent levels but some elevated numbers so continue to monitor.
Dysphagia
-currently on tube feedings
Urinary retention:
Hx urethral stricture
Ford catheter removed at [place] and placed on [place] catheter.
Past medical problems:
Essential hypertension
Dyslipidemia
Prediabetes mellitus
TIA/brain infarcts
PVD with carotid stenosis status post left CEA
Prostate cancer
DVT prophylaxis:
hep subQ
DNR
Time spent 55 minutes
Anticipated Discharge: > 48 hours
Subjective/Interval History
-
Date of Service: December 17, 2023
Patient more calm and alert today. Less agitation.
Objective Data
-
Labs:
Laboratory Results
12/17/23
07:26
WBC 6.8
Hgb 11.3 L
Hct 35.6 L
Plt Count 286
PT 14.8 H
INR 1.17
Sodium 152 H
Potassium 4.2
Chloride 110 H
Carbon Dioxide 31 H
BUN 43 H
Creatinine 0.7
Glucose 110 H
Calcium 9.5
Total Bilirubin 0.7
AST 46
ALT 45
Alkaline Phosphatase 106
Vital Signs:
Vital Signs
Temp Pulse Resp BP Pulse Ox
97.5 F 71 21 101/54 98
12/16/23 23:14 12/16/23 23:14 12/16/23 23:14 12/16/23 23:14 12/17/23 02:19
I&O
12/16/23 12/17/23 12/18/23
06:59 06:59 06:59
Intake Total 960 / 960 300 / 300
Balance 960 / 960 300 / 300
[2023-12-17] MEDS: D5W 1000 IV (10:05)
[2023-12-17] MEDS: ALTACE 10 MG TUBE (10:26)
[2023-12-17] MEDS: LOW STRENGTH ASPIRIN 81 MG TUBE (10:26)
[2023-12-17] MEDS: HEPARIN 5000 UNITS SC ×2 (10:26→21:38)
[2023-12-17] MEDS: VITAMIN B1 100 MG TUBE (10:26)
[2023-12-17] MEDS: LOPRESSOR 50 MG TUBE ×2 (10:26→21:54)
--- NOTE | 2023-12-17 10:51 | W.PN.UPDATE ---
Update Note
Progress Note Update
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 Was transferred from [place] and has continued with delirium and intermittent agitation. Per nurse, became very agitated last night. Is now in 4 pt. soft restraints. He only
slept about 4 hours last night which apparently is not atypical here. Non-pharmacologic means for orientation and distraction. Failed swallowing tests so has tube. He is only treated with Seroquel 12.5 mg. HS; no PRN'S (which would keep him from
long-term placement).
This morning is alert and pleasant. Saying he is thirsty.
I spoke to by telephone> she is a retired mental health trauma therapist. She agreed to my recommendation of raising Seroquel to 25 mg. HS and adding PRN 12.5 mg. daily. Should he use the PRN consistently, will adjust to make a scheduled
dose to facilitate discharge.
Psychiatry will follow
[2023-12-17 12:15] LABS: Glucose - Point of Care 91 mg/dl (70-99)
[2023-12-17 15:45] VITALS: BP 111/61
[2023-12-17] MEDS: D-VI-SOL (Vitamin D3) 10 MCG TUBE (17:23)
[2023-12-17] MEDS: LIPITOR 40 MG TUBE (17:27)
[2023-12-17 17:35] LABS: Glucose - Point of Care 104 mg/dl (70-99)
--- NOTE | 2023-12-17 18:02 | PTCARENOTE ---
Later this afternoon pt became very nasty, and ready to throw a punch. He was forcing himself to slide out of chair. Pt repositioned but pt again was uncooperative make his body very stiff and unbendable. He appeared anxious like he need to get
out of here and was very assertive with squeezing the arems of nurse and raising a fist to there faces. His present observing this and was trying to redirect him. Which she was unsuccessful. He took 3 nurses to get him into the bed and at
the same time cont to belligerent and forceful with trying to strike at people. I asked his if I could admin the prn dose of Seroquel 12.5 at this point for the agitation and she told be that she would rather not. So she continues to talk to
him while the nurse were physically placing bilat soft limb restraints on as well as lower ext soft limb restraints in order to be safe. Pt had sudden jerky movements , tremors along with a flush face, and was very uncooperative. He was not being
able to be redirected. Dr. Hutchins called to see pt and speak to pt's on the mater. BS 104. BP 111/64 and RA 96%. Will cont to monitor his progres.
[2023-12-17] MEDS: D5W IV (21:53)
[2023-12-17] MEDS: SEROQUEL 25 MG TUBE (21:56)
[2023-12-17 23:54] VITALS: BP 116/64
[2023-12-17] MEDS: TYLENOL ORAL SOLUTION 650 MG TUBE (23:58)
[2023-12-18] MEDS: SEROQUEL 12.5 MG TUBE ×2 (00:02→17:30)
[2023-12-18 00:03] LABS: Glucose - Point of Care 115 mg/dl (70-99)
[2023-12-18] MEDS: NOVOLOG FLEXPEN-LOW RESISTANCE SC ×4 (01:58→19:14)
[2023-12-18] MEDS: D5W 1000 IV ×2 (03:00→12:17)
[2023-12-18 06:11] LABS: Glucose - Point of Care 94 mg/dl (70-99)
--- NOTE | 2023-12-18 06:29 | PTCARENOTE ---
Assumed care of patient at beginning of shift. Patient restless, attempting to take off hospital gown, abdominal binder, grasping at peg tube. Attempted to reorient patient, unable. Maintained 4 point soft limb restraints. Patient unable to maintain
30 degree angle, keeps scooting down in bed and laying flat even with restraints in place. Tube feed on hold due to high risk of aspiration. IV fluids intermittent due to location, new IV site placed, fluids infusing. Patient restless/agitated, PRN
dose of Seroquel given at approx 0002 on 12/17. Patient still restless in bed, however, is not agitated. Patient w/only small void in beginning of shift, bladder scanned at approx 0600 for 336 mls. Patient resting in bed, call gaines in reach, bed
alarm in place, restraints maintained.
[2023-12-18 07:40] VITALS: BP 124/80
[2023-12-18 08:06] LABS: Blood Urea Nitrogen 42 mg/dl (9-20); Calcium 9.1 mg/dl (8.4-10.2); Carbon Dioxide 32 mmol/L (22-30); Chloride 105 mmol/L (98-107); Glucose 115 mg/dl (70-99); Potassium 3.7 mmol/L (3.5-5.1); Sodium 146 mmol/L (135-145); eGFR > 60.00
--- NOTE | 2023-12-18 08:37 | W.PN.HOSP.TC ---
Today's Communication/Plan
-
IV fluids. Increased Seroquel.
Assessment / Plan
Assessment / Plan
Physical exam:
General: Acute on chronically ill
HEENT: Normocephalic, Atraumatic and Dry Mucous Membranes
Respiratory: Clear to Auscultation; Negative Wheezes, Rales or Rhonchi
Cardiac: Regular Rhythm and S1/S2
GI: Soft, Nontender and Nondistended
Musculoskeletal: No Clubbing, No Cyanosis and No Edema
Neuro: Awake, Alert and Disoriented
Psych: Calm
A/P:
Altered Mental Status
Secondary to Covid?
Delirium
- Psychiatry has him on Seroquel to 25 mg nightly and Seroquel 12.5 mg every 12 hours as needed.
- Psychiatry on consult
-Confusion and delirium following covid infection with multiple infections and hypernatremia and so on.
-repeat LP and EEG and Brain MRI from [facility] did not show any significant findings
- Status post course of Paxlovid
-Using restraints again today but hopefully after sodium improves and increased doses of Seroquel we might not need to restrain over the next couple of days.
-Updated at bedside on 12/16 and over the phone today on 12/17
Hypernatremia:
Based on free water deficit we will continue him on hypotonic IV fluids
146-->152
We can also increase free water through PEG tube if needed.
Monitor sodium in a.m.
Fall:
No head trauma
Repeat CT head unremarkable.
No need for further images
Recurrent aspiration pneumonia
Sepsis with Bacteremia
-s/p multiple course of antibiotics
- NPO, non oral meds--> changed meds to through tube on 12/11.
- continue tube feeds
- Speech language therapy consulted
Pre-DM
-Blood sugars at decent levels but some elevated numbers so continue to monitor.
Dysphagia
-currently on tube feedings
Urinary retention:
Hx urethral stricture
Ford catheter removed at [place] and placed on [place] catheter.
Now on Diaper
Past medical problems:
Essential hypertension
Dyslipidemia
Prediabetes mellitus
TIA/brain infarcts
PVD with carotid stenosis status post left CEA
Prostate cancer
DVT prophylaxis:
hep subQ
DNR
Anticipated Discharge: > 48 hours
Subjective/Interval History
-
Date of Service: December 18, 2023
Patient more alert today. Still restless. Afebrile
Objective Data
-
Labs:
Laboratory Results
12/18/23
06:52
Sodium 146 H
Potassium 3.7
Chloride 105
Carbon Dioxide 32 H
BUN 42 H
Creatinine 0.7
Glucose 115 H
Calcium 9.1
Vital Signs:
Vital Signs
Temp Pulse Resp BP Pulse Ox
97.9 F 72 18 116/64 98
12/17/23 23:54 12/17/23 23:54 12/17/23 23:54 12/17/23 23:54 12/17/23 23:54
I&O
12/17/23 12/18/23 12/19/23
06:59 06:59 06:59
Intake Total 300 / 300 1250 / 1250
Balance 300 / 300 1250 / 1250
[2023-12-18] MEDS: TYLENOL ORAL SOLUTION 650 MG TUBE ×2 (10:30→21:10)
[2023-12-18] MEDS: HEPARIN 5000 UNITS SC ×2 (10:31→21:11)
[2023-12-18] MEDS: VITAMIN B1 100 MG TUBE (10:31)
[2023-12-18] MEDS: LOW STRENGTH ASPIRIN 81 MG TUBE (10:31)
[2023-12-18] MEDS: LOPRESSOR 50 MG TUBE ×2 (10:32→21:13)
[2023-12-18] MEDS: ALTACE 10 MG TUBE (10:32)
--- NOTE | 2023-12-18 11:00 | PTCARENOTE ---
Pt asleep in gerichair. Accu check s have been neg. Will cont to monitor.
[2023-12-18 15:45] VITALS: BP 99/56
--- NOTE | 2023-12-18 16:29 | W.PN.UPDATE ---
Update Note
Progress Note Update
78 y/o man who supposedly had no functional or mental impairment in September, came to the hospital because he could not get out of bed and has had a long course since then. Presumed to have delirium and cognitive impairment secondary to COVID. Also is
on tube feedings as he aspirates. Becomes agitated requiring multiple staff to intervene and intermittent use of restraints.
Yesterday, after discussion with , I increased Seroquel to 25 mg. HS and added 12.5 mg. Q 12 H PRN. He required a PRN at midnight due to restlessness. He then only slept about four hours. Has been awake all day. Has tremor which predated
increase in Seroquel. Diabetes is controlled. Na minimally elevated today.
He is in Nava chair,,squirms down. Not able to give his last name. Not oriented to place. 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 Mood pleasant.
does not want benzodiazepines used and states that Jake and Dr. Escobar are opposed. She is agreeable to raising Seroquel dose to 50 mg. HS and maintaining PRN's which I will order.
Psychiatry will follow.
[2023-12-18] MEDS: D-VI-SOL (Vitamin D3) 10 MCG TUBE (17:26)
[2023-12-18] MEDS: LIPITOR 40 MG TUBE (17:32)
[2023-12-18] MEDS: SEROQUEL 50 MG TUBE (21:13)
[2023-12-18 23:00] VITALS: BP 80/59
[2023-12-18 23:12] VITALS: BP 90/40
[2023-12-19 00:13] LABS: Glucose - Point of Care 142 mg/dl (70-99)
[2023-12-19] MEDS: NOVOLOG FLEXPEN-LOW RESISTANCE SC ×5 (00:35→22:50)
[2023-12-19] MEDS: D5W 1000 IV (01:44)
[2023-12-19 04:28] VITALS: BP 124/106
[2023-12-19 06:13] LABS: Glucose - Point of Care 133 mg/dl (70-99)
[2023-12-19 07:27] LABS: Blood Urea Nitrogen 33 mg/dl (9-20); Calcium 8.5 mg/dl (8.4-10.2); Carbon Dioxide 28 mmol/L (22-30); Chloride 100 mmol/L (98-107); Glucose 119 mg/dl (70-99); Potassium 3.8 mmol/L (3.5-5.1); Sodium 138 mmol/L (135-145); eGFR > 60.00
--- NOTE | 2023-12-19 07:31 | PTCARENOTE ---
Pt had 5hr of uninterrupted sleep after receiving HS meds, TF were on during these hours and tolerated well. No insulin coverage needed this shift. Pt remains in 4 point restrain + 4 side rails. IVF's infusing at 75ml/hr.
[2023-12-19 07:50] VITALS: BP 136/60
[2023-12-19] MEDS: LOPRESSOR 50 MG TUBE ×2 (08:50→20:09)
[2023-12-19] MEDS: VITAMIN B1 100 MG TUBE (08:50)
[2023-12-19] MEDS: ALTACE 10 MG TUBE (08:50)
[2023-12-19] MEDS: D-VI-SOL (Vitamin D3) 10 MCG TUBE (08:50)
[2023-12-19] MEDS: HEPARIN 5000 UNITS SC ×2 (08:51→20:05)
[2023-12-19] MEDS: LOW STRENGTH ASPIRIN 81 MG TUBE (08:51)
--- NOTE | 2023-12-19 10:06 | PTCARENOTE ---
pt out of four point restraints, redirective activities continued with pt, tube feeds continued jevity 1.5 @ 55ml/hr with 25ml/hr flush. pt with multiple bowel movements, nurse requested imodium. prn ordered per MD.
[2023-12-19 10:43] VITALS: BP 109/51
--- NOTE | 2023-12-19 12:02 | W.PN.HOSP.TC ---
Today's Communication/Plan
-
Continue with agitation management
Await placement.
Assessment / Plan
Assessment / Plan
A/P:
Altered Mental Status suspected encephalopathy and questions raised about possible connection to COVID infection. Extensive evaluation including evaluation at [place] with no clear diagnosis.
Possible dementia to begin with now with behavioral disturbances intermittently.
- cw seroquel
- Psychiatry on consult
-Confusion and delirium following covid infection with multiple infections and hypernatremia and so on.
-repeat LP and EEG and Brain MRI from [facility] did not show any significant findings
- Status post course of Paxlovid
-Using restraints intermittently - will remove them today and place him on med sitter
Hypernatremia: Resolved
Recurrent aspiration pneumonia
Sepsis with Bacteremia
-s/p multiple course of antibiotics
- NPO, non oral meds--> changed meds to through tube on 12/11.
- continue tube feeds
- Speech language therapy consulted
Pre-DM
-Blood sugars at decent levels but some elevated numbers so continue to monitor.
Dysphagia
-currently on tube feedings
Urinary retention:
Hx urethral stricture
Ford catheter removed at [place] and placed on [place] catheter.
Now on Diaper
Past medical problems:
Essential hypertension
Dyslipidemia
Prediabetes mellitus
TIA/brain infarcts
PVD with carotid stenosis status post left CEA
Prostate cancer
DVT prophylaxis:
hep subQ
DNR
DW RN
Anticipated Discharge: Within 24 hours
Subjective/Interval History
-
Date of Service: December 19, 2023
Patient confused without moments of agitation. He is in restraints this morning.
Objective Data
-
Labs:
Laboratory Results
12/19/23
06:17
Sodium 138 D
Potassium 3.8
Chloride 100
Carbon Dioxide 28
BUN 33 H
Creatinine 0.6 L
Glucose 119 H
Calcium 8.5
Vital Signs:
Vital Signs
Temp Pulse Resp BP Pulse Ox
97.6 F 75 16 136/60 100
12/19/23 07:50 12/19/23 07:50 12/19/23 07:50 12/19/23 08:50 12/19/23 07:50
I&O
12/18/23 12/19/23 12/20/23
06:59 06:59 06:59
Intake Total 1250 / 1250 1789
Balance 1250 / 1250 1789
Review of Systems
-
Unable to obtain full review of systems at this time due to: Dementia
Physical Exam
-
General: Comfortable
Respiratory: Non Labored Respirations; Negative Accessory Resp Muscle Use
GI: Soft
Neuro: Awake, Alert and Oriented (self only); Negative Tremors
Psych: Confused
[2023-12-19 12:03] LABS: Glucose - Point of Care 107 mg/dl (70-99)
[2023-12-19] MEDS: D5W IV (12:40)
[2023-12-19 15:00] VITALS: BP 124/45
--- NOTE | 2023-12-19 16:41 | CM ---
Chart reviewed and patient is out of bed in carrington chair, per notes, patient with 4 point restraints and side rails, patient will need to be off restraints for skilled placement. Family aware.
Plan; skilled placement when patient off restraints.
[2023-12-19] MEDS: LIPITOR 40 MG TUBE (17:46)
[2023-12-19 17:48] LABS: Glucose - Point of Care 122 mg/dl (70-99)
[2023-12-19] MEDS: TYLENOL ORAL SOLUTION 650 MG TUBE (20:03)
[2023-12-19] MEDS: IMODIUM 2 MG PO (20:05)
[2023-12-19] MEDS: SEROQUEL 50 MG TUBE (21:00)
[2023-12-19 22:49] LABS: Glucose - Point of Care 122 mg/dl (70-99)
[2023-12-19 23:00] VITALS: BP 97/52
--- NOTE | 2023-12-20 04:33 | PTCARENOTE ---
Pt calm and cooperative this shift, asleep shortly after HS meds given and stayed asleep most of night, with few episodes of restlessness r/t incontinence. TF infusing continuously at 55/hr with 25ml/hr flush, tolerated well. Pt remains confused,
able to easily redirected.
[2023-12-20 06:36] LABS: Glucose - Point of Care 161 mg/dl (70-99)
[2023-12-20] MEDS: NOVOLOG FLEXPEN-LOW RESISTANCE 1 UNITS SC (06:44)
[2023-12-20 07:52] VITALS: BP 148/66
[2023-12-20] MEDS: LOW STRENGTH ASPIRIN 81 MG TUBE (09:23)
[2023-12-20] MEDS: ALTACE 10 MG TUBE (09:23)
[2023-12-20] MEDS: LOPRESSOR 50 MG TUBE ×2 (09:23→21:26)
[2023-12-20] MEDS: VITAMIN B1 100 MG TUBE (09:24)
[2023-12-20] MEDS: HEPARIN 5000 UNITS SC ×2 (09:24→21:26)
[2023-12-20] MEDS: D-VI-SOL (Vitamin D3) 10 MCG TUBE (09:27)
[2023-12-20 12:02] LABS: Glucose - Point of Care 129 mg/dl (70-99)
[2023-12-20] MEDS: NOVOLOG FLEXPEN-LOW RESISTANCE SC ×2 (12:05→18:55)
--- NOTE | 2023-12-20 12:07 | W.PN.HOSP.TC ---
Today's Communication/Plan
-
Ongoing dispo efforts
Assessment / Plan
Assessment / Plan
A/P:
Altered Mental Status suspected encephalopathy and questions raised about possible connection to COVID infection. Extensive evaluation including evaluation at [facility] with no clear diagnosis.
Possible dementia to begin with now with behavioral disturbances intermittently.
- cw seroquel
- Psychiatry on consult
-Confusion and delirium following covid infection with multiple infections and hypernatremia and so on.
-repeat LP and EEG and Brain MRI from [facility] did not show any significant findings
- Status post course of Paxlovid
-Using restraints intermittently - will remove them today and place him on med sitter
Hypernatremia: Resolved
Recurrent aspiration pneumonia
Sepsis with Bacteremia
-s/p multiple course of antibiotics
- NPO, non oral meds--> changed meds to through tube on 12/11.
- continue tube feeds
- Speech language therapy consulted
Pre-DM
-Blood sugars at decent levels but some elevated numbers so continue to monitor.
Dysphagia
-currently on tube feedings
Urinary retention:
Hx urethral stricture
Ford catheter removed at [facility] and placed on [place] catheter.
Now on Diaper
Past medical problems:
Essential hypertension
Dyslipidemia
Prediabetes mellitus
TIA/brain infarcts
PVD with carotid stenosis status post left CEA
Prostate cancer
DVT prophylaxis:
hep subQ
DNR
DW RN
DW CM
Anticipated Discharge: Within 24 hours
Subjective/Interval History
-
Date of Service: December 20, 2023
no overnight events.
He slept well apparently last night per RN.
He has been out of restraints since yesterday morning.
Objective Data
-
Vital Signs:
Vital Signs
Temp Pulse Resp BP Pulse Ox
98.1 F 80 16 148/66 98
12/20/23 07:52 12/20/23 07:52 12/20/23 07:52 12/20/23 09:23 12/20/23 07:52
I&O
12/19/23 12/20/23 12/21/23
06:59 06:59 06:59
Intake Total 1789
Balance 1789
Review of Systems
-
Unable to obtain full review of systems at this time due to: Dementia
Physical Exam
-
General: Comfortable
Respiratory: Non Labored Respirations; Negative Accessory Resp Muscle Use
Cardiac: Regular Rhythm and S1/S2
Neuro: Awake and Alert; Negative Oriented (refused to talk today )
Psych: Calm
--- NOTE | 2023-12-20 14:39 | CM ---
Reviewed the chart notes and spoke with the patient and his spouse at the bedside. Patient remains in carrington-chair asking continuously for water. Updated clinicals were sent via [facility] to facilities. Reviewed with the spouse that [facility]
is still interested and that they stated they have left voice messages twice with no call back. Patient's spouse adamantly denies having any call from the facility. Provided spouse's phone number (as was provided to CM by spouse) in message to
[facility]. CM continues to be available to patient/family and is monitoring medical plan for needs at discharge.
Plan: Discharge to SNF/rehab when medically stable.
[2023-12-20 15:25] VITALS: BP 117/60; PULSE 81; O2SAT 100
[2023-12-20 15:30] VITALS: BP 121/51
[2023-12-20] MEDS: LIPITOR 40 MG TUBE (17:19)
[2023-12-20 18:26] LABS: Glucose - Point of Care 90 mg/dl (70-99)
[2023-12-20 19:34] VITALS: BP 146/68
[2023-12-20] MEDS: SEROQUEL 50 MG TUBE (21:27)
[2023-12-20 23:47] VITALS: BP 131/56
[2023-12-20 23:59] LABS: Glucose - Point of Care 88 mg/dl (70-99)
[2023-12-21] MEDS: NOVOLOG FLEXPEN-LOW RESISTANCE SC ×5 (00:02→23:38)
[2023-12-21 06:23] LABS: Glucose - Point of Care 98 mg/dl (70-99)
[2023-12-21 07:36] VITALS: BP 142/64
[2023-12-21] MEDS: D-VI-SOL (Vitamin D3) 10 MCG TUBE (08:33)
[2023-12-21] MEDS: ALTACE 10 MG TUBE (08:33)
[2023-12-21] MEDS: HEPARIN 5000 UNITS SC ×2 (08:34→20:29)
[2023-12-21] MEDS: LOPRESSOR 50 MG TUBE ×2 (08:35→20:30)
[2023-12-21] MEDS: LOW STRENGTH ASPIRIN 81 MG TUBE (08:35)
[2023-12-21] MEDS: VITAMIN B1 100 MG TUBE (08:35)
--- NOTE | 2023-12-21 10:11 | W.PN.HOSP.TC ---
Today's Communication/Plan
-
Ongoing disposition efforts
Assessment / Plan
Assessment / Plan
A/P:
Altered Mental Status suspected encephalopathy and questions raised about possible connection to COVID infection. Extensive evaluation including evaluation at [facility] with no clear diagnosis.
Possible dementia to begin with now with behavioral disturbances intermittently.
- cw seroquel
- Psychiatry following
-Confusion and delirium following covid infection with multiple infections and hypernatremia and so on.
-repeat LP and EEG and Brain MRI from [facility] did not show any significant findings
- Status post course of Paxlovid
-Off of restraints.
Recurrent aspiration pneumonia
Sepsis with Bacteremia
-s/p multiple course of antibiotics
- NPO, non oral meds--> changed meds to through tube on 12/11.
- continue tube feeds
- Speech language therapy consulted
Pre-DM
-Blood sugars at decent levels but some elevated numbers so continue to monitor.
Dysphagia
-currently on tube feedings
Urinary retention:
Hx urethral stricture
Ford catheter removed at [facility] and placed on [place] catheter.
Now on Diaper
Past medical problems:
Essential hypertension
Dyslipidemia
Prediabetes mellitus
TIA/brain infarcts
PVD with carotid stenosis status post left CEA
Prostate cancer
DVT prophylaxis:
hep subQ
DNR
Medically stable for discharge. Ongoing disposition efforts.
Anticipated Discharge: Today
Subjective/Interval History
-
Date of Service: December 21, 2023
Awake and alert but not oriented.
Conversive without any agitation. Did not need restraints. Did not need as needed Seroquel for last couple of days.
Objective Data
-
Vital Signs:
Vital Signs
Temp Pulse Resp BP Pulse Ox
97.4 F 78 16 142/64 95
12/21/23 07:36 12/21/23 08:35 12/21/23 07:36 12/21/23 08:35 12/21/23 07:36
I&O
12/20/23 12/21/23 12/22/23
06:59 06:59 06:59
Intake Total 2199 / 0 0 / 1920
Output Total 1150 / 1150
Balance 2199 770 / 770
Review of Systems
-
Unable to obtain full review of systems at this time due to: Other (Cognitive impairment)
Physical Exam
-
General: Comfortable
Respiratory: Non Labored Respirations; Negative Accessory Resp Muscle Use
Cardiac: Regular Rhythm and S1/S2
GI: Soft
Neuro: Awake, Alert and Oriented (Self only)
Psych: Calm and Confused; Negative Agitated
--- NOTE | 2023-12-21 10:42 | PTCARENOTE ---
pt wakes to name. oriented to self. confused. restless pulling at id band. tube feeding running as ordered via peg tube.
--- NOTE | 2023-12-21 11:00 | PN.CDI ---
CDI
- -
CDI:
Physician Documentation Request
Admit Date: 12/07/23 19:52
Dear Doctor Rakesh,
Clinical Indicators:
Patient readmitted with altered mental status after evaluation at [facility].
12/20 PN, 'Altered Mental Status suspected encephalopathy and questions raised about possible connection to COVID infection...-Confusion and delirium following covid infection with multiple infections and hypernatremia and so on.'
Please clarify the likely type of encephalopathy.
Acute Metabolic Encephalopathy
Toxic Metabolic Encephalopathy
Other Encephalopathy, please specify
Use of terms such as suspected, likely, concern for, or probable (associated with a specific diagnosis that is being evaluated, monitored, or treated as if it exists) are acceptable and can be coded in the inpatient setting, when documented at the
time of discharge.
Thank you,
Idania Ortega RN BSN
CDI Specialist
available via tiger text
Please use your independent medical judgment in providing your response.
[2023-12-21 11:20] VITALS: BP 123/55; PULSE 66
[2023-12-21 11:43] VITALS: BP 123/55
[2023-12-21 11:58] LABS: Glucose - Point of Care 77 mg/dl (70-99)
--- NOTE | 2023-12-21 14:54 | PTOTSP ---
Speech Therapy
Alert and interactive though confusion remains. Patient tolerated ice chips, thick liquids and pureed items without overt signs of aspiration. Given high variability in level of arousal and participation from day to day, will maintain NPO with ice
chips and return tomorrow to complete oral trials as clinically appropriate.
--- NOTE | 2023-12-21 15:21 | CM ---
Reviewed the chart notes. Per speech therapy note, 'patient tolerated ice chips, thick liquids and pureed items without overt signs of aspiration.' CM continues to be available to patient/family and is monitoring medical plan for needs at
discharge.
Plan: Discharge to SNF/rehab once medically stable and off all restraints.
--- NOTE | 2023-12-21 16:29 | W.PN.UPDATE ---
Update Note
Progress Note Update
patient seen chart reviewed. discussed w nursing. i had not seen mr kay in one week. he appeared to me today to be much improved. for a short time he carried on a very reasonable conversation about the book 'angle of repose 'which is his
favorite book and which i attempted to read once upon a time. his conversation then digressed a bit but even considering this he was able to maintain eye contact and some understanding of the format of reasonable discourse even if he strayed off the
[place]. he is taking seroquel at hs 50 mg and on 12/17 had 12.5 mg prn twice but no prns' yesterday or the day before. this is progress. i will call pinky as she requested to speak to me. will follow
[2023-12-21] MEDS: LIPITOR 40 MG TUBE (17:49)
[2023-12-21 18:00] LABS: Glucose - Point of Care 95 mg/dl (70-99)
[2023-12-21] MEDS: TYLENOL ORAL SOLUTION 650 MG TUBE (20:29)
[2023-12-21] MEDS: SEROQUEL 50 MG TUBE (21:21)
[2023-12-21 23:05] VITALS: BP 146/56
[2023-12-21 23:38] LABS: Glucose - Point of Care 105 mg/dl (70-99)
[2023-12-22 05:17] VITALS: BMI 18.3
--- NOTE | 2023-12-22 05:36 | W.PN.UPDATE ---
Update Note
Progress Note Update
reported by the nursing staff that peg tube was dislodged. GI consult placed for Peg tube replacement.
[2023-12-22 06:18] LABS: Glucose - Point of Care 100 mg/dl (70-99)
--- NOTE | 2023-12-22 06:21 | PTCARENOTE ---
Pt pulled out PEG tube this morning at around 0520 am, balloon fully inflated. firer tunnel kiln INFECTION CONTROL COORDINATOR and GI made aware, advised to insert goodwin tubing in and inflate balloon. # 14 Fr Goodwin inserted and balloon inflated at 10cc. Soft limb restrains and 4 side
rails applied. Pt denies pain or discomfort at this time.
[2023-12-22] MEDS: NOVOLOG FLEXPEN-LOW RESISTANCE SC ×4 (06:31→23:53)
[2023-12-22 07:32] VITALS: BP 130/56
--- NOTE | 2023-12-22 07:58 | W.PN.UPDATE ---
Addendum entered and electronically signed by HARDIK Cervantes 12/22/23 11:18:
peg check stable with tube in stomach ok to use tube for meds and feeds
Original Note:
Update Note
Progress Note Update
peg with accidental removal overnight replaced with goodwin and now exchanged back without difficulty to #18 st helenian tube with 15 ml balloon. bumper between 3 and 5 markings. Will obtain tube check to confirm placement prior to use. cont binder,
mits from pulling at time.
[2023-12-22] MEDS: D-VI-SOL (Vitamin D3) TUBE (08:22)
[2023-12-22] MEDS: ALTACE TUBE (08:22)
[2023-12-22] MEDS: VITAMIN B1 TUBE (08:23)
[2023-12-22] MEDS: LOW STRENGTH ASPIRIN TUBE (08:23)
[2023-12-22] MEDS: LOPRESSOR TUBE (08:23)
[2023-12-22] MEDS: HEPARIN 5000 UNITS SC (08:23)
--- NOTE | 2023-12-22 09:46 | W.PN.UPDATE ---
Update Note
Progress Note Update
patient seen chart reviewed. discussed w nursing and with dr dimas. the patient appeared much the same as yesterday. he was calmly seated in a chair. he told me he was 'far gone' and seemed to recognize that cognitively he has become quite
impaired. that is in itself an improvement. he was obsessed this am with the date. he had written dose dec 21 the four seeming to refer to 2023. i corrected this and wrote the actual date for him which he stared at. last evening he pulled out
his peg tube. he was unable to tell me why he did it but he knew it was the way he was fed. i am told that there has been some improvement in his swallowing and speech will assess further today. he has not received a prn since dec 17. i told mr
eliza i will return in the afternoon to talk w him and with his . no changes made in his meds.
--- NOTE | 2023-12-22 10:24 | W.PN.HOSP.TC ---
Today's Communication/Plan
-
Follow SPT recs.
Follow PEG tube placement xray and restart TF.
Ongoing dispo efforts.
Assessment / Plan
Assessment / Plan
A/P:
Altered Mental Status suspected encephalopathy and questions raised about possible connection to COVID infection. Extensive evaluation including evaluation at [facility] with no clear diagnosis.
Possible dementia to begin with now with behavioral disturbances intermittently.
- cw seroquel
- Psychiatry following
- Confusion and delirium following covid infection with multiple infections and hypernatremia and so on.
-repeat LP and EEG and Brain MRI from [facility] [place] did not show any significant findings
- Status post course of Paxlovid
- Remains Off of restraints.
Recurrent aspiration pneumonia
Sepsis with Bacteremia
-s/p multiple course of antibiotics
- NPO, non oral meds--> changed meds to through tube on 12/11.
- continue tube feeds
- Speech language therapy following - start oral diet if and when cleared.
Pre-DM
-Blood sugars at decent levels but some elevated numbers so continue to monitor.
Dysphagia
-currently on tube feedings
Urinary retention:
Hx urethral stricture
Ford catheter removed at [facility] and placed on [place] catheter.
Now on Diaper
Past medical problems:
Essential hypertension
Dyslipidemia
Prediabetes mellitus
TIA/brain infarcts
PVD with carotid stenosis status post left CEA
Prostate cancer
DVT prophylaxis:
hep subQ
DNR
Medically stable for discharge. Ongoing disposition efforts.
Anticipated Discharge: Today
Subjective/Interval History
-
Date of Service: December 22, 2023
Remains confused but directable and conversive.
Pulled his PEG tube which was placed back by GI this am. He could explain why he pulled it.
Objective Data
-
Vital Signs:
Vital Signs
Temp Pulse Resp BP Pulse Ox
97.8 F 68 16 130/56 99
12/22/23 07:32 12/22/23 07:32 12/22/23 07:32 12/22/23 07:32 12/22/23 08:56
I&O
12/21/23 12/22/23 12/23/23
06:59 06:59 06:59
Intake Total 1920 / 1920 0 / 0
Output Total 1150 / 1150 300 / 300
Balance 770 / 770 -300 / -300
Review of Systems
-
Unable to obtain full review of systems at this time due to: Dementia
Physical Exam
-
General: Comfortable
HEENT: Moist Mucous Membranes
Respiratory: Non Labored Respirations; Negative Accessory Resp Muscle Use
Cardiac: Regular Rhythm and S1/S2
GI: Soft, Nontender and Peg Tube
Neuro: Awake, Alert and Oriented (self only)
Psych: Calm
[2023-12-22 12:07] LABS: Glucose - Point of Care 95 mg/dl (70-99)
--- NOTE | 2023-12-22 12:35 | PTOTSP ---
Speech Language Pathology
Pt seen for dysphagia tx. present at bedside. Pt awake and alert with some confused conversation. Completed effortful swallow exercises with use of ice chips. Required intermittent cueing for hard swallows. Also introduced chin tuck
against resistance (CTAR). Pt required mod cueing for 10 repetitions of 10 second hold. Instructed to continue to complete effortful swallow exercises with use of ice chips and to add CTAR when able to cognitively tolerate more than 1
exercise.
Pt able to participate well in tx for 2 consecutive days. Pt has had some days in the past 2 months where he has been able to participate, so unsure if waxing/waning or if steadily improving. If able to demonstrate continued appropriate
participation/alertness with no wet vocal quality at bedside with P.O. trials (will be limited given known silent aspiration), will consider repeat VSE, no earlier than Monday 12/25. educated on the above and verbalized understanding.
Recommend:
(1) NPO
(2) Oral care 4x/day with suctioning as needed
(3) Non-oral meds
(4) Allow ice chips post oral care given supervision per Aspiration Risk Hydration Protocol (ARHP)
(5) PROFESSIONAL ATHLETE to follow
--- NOTE | 2023-12-22 13:51 | W.PN.UPDATE ---
Update Note
Progress Note Update
patient seen a second time today. present. the patient is maintaining mood displayed this am he is pleasant. some of the things he says are appropriate conversation others miss the [place] but overall much better. is asking that prns be
dc'ed. she feels that prn's may be used too much and without first resorting to non med means. have dc'ed the prn as requested. mr kay c/o heartburn and nursing aware and mrs reports that getting medication is in progress. mrs kay also
suggests probiotics and omega threes for cognition. pharmacy will get back to me as to what probiotics are available . we do not have omega t hrees and she would have to bring them. i suggested she encurage coby to play card games, checkers ,
crosswords etc to help w cognition and coby agreed to a card game w me tomorrow.
--- NOTE | 2023-12-22 14:20 | CM ---
Reviewed the chart notes and spoke with the patient and spouse at the bedside. Copy of responses from [facility] provided to the patient's spouse. Spouse has not reached out to [facility]. Speech saw patient today to trial ice chips, mod thick
liquid, and applesauce. Same response as yesterday. Per speech, if patient maintains or improves swallowing would consider VSE on Tuesday. CM continues to be available to patient/family and is monitoring medical plan for needs at discharge.
Plan: Discharge to SNF/rehab once medically stable and bed found. No precert required.
[2023-12-22 15:36] VITALS: BP 136/64
[2023-12-22] MEDS: PEPCID 20 MG TUBE (16:51)
[2023-12-22 17:51] LABS: Glucose - Point of Care 112 mg/dl (70-99)
[2023-12-22] MEDS: LIPITOR 40 MG TUBE (17:59)
[2023-12-22] MEDS: HEPARIN SC (21:16)
[2023-12-22] MEDS: LOPRESSOR 50 MG TUBE (21:17)
[2023-12-22] MEDS: SEROQUEL 50 MG TUBE (21:17)
[2023-12-22 23:15] VITALS: BP 91/53
[2023-12-22 23:49] LABS: Glucose - Point of Care 145 mg/dl (70-99)
[2023-12-23] VITALS (7 sets, daily range): BP systolic 102–160; BP diastolic 44–64; PULSE 62–64; O2SAT 98; BMI 18.6
[2023-12-23] MEDS: HEPARIN SC (01:30)
[2023-12-23 05:43] LABS: Glucose - Point of Care 113 mg/dl (70-99)
[2023-12-23] MEDS: NOVOLOG FLEXPEN-LOW RESISTANCE SC ×3 (06:05→18:00)
[2023-12-23 07:52] LABS: Blood Urea Nitrogen 25 mg/dl (9-20); Calcium 8.7 mg/dl (8.4-10.2); Carbon Dioxide 29 mmol/L (22-30); Chloride 101 mmol/L (98-107); Estimated Creatinine Clearance 71 ml/min; Glucose 102 mg/dl (70-99); Potassium 4.4 mmol/L (3.5-5.1); Sodium 138 mmol/L (135-145); eGFR > 60.00
[2023-12-23] MEDS: VITAMIN B1 100 MG TUBE (09:15)
[2023-12-23] MEDS: PEPCID 20 MG TUBE (09:15)
[2023-12-23] MEDS: ALTACE 10 MG TUBE (09:16)
[2023-12-23] MEDS: LOW STRENGTH ASPIRIN 81 MG TUBE (09:16)
[2023-12-23] MEDS: LOPRESSOR 50 MG TUBE (09:16)
[2023-12-23] MEDS: HEPARIN 5000 UNITS SC ×2 (09:16→21:57)
[2023-12-23] MEDS: D-VI-SOL (Vitamin D3) 10 MCG TUBE (09:17)
[2023-12-23 11:37] LABS: Glucose - Point of Care 128 mg/dl (70-99)
--- NOTE | 2023-12-23 14:32 | W.PN.UPDATE ---
Update Note
Progress Note Update
patient seen chart reviewed. spoke with nursing. patient 's at bedside. the patient is much the same. he is appropriately conversational for a few minutes then will say something that is not germane. he can be quite witty at times....very
sarcastic in a funny manner. he did not sleep well last night and required support of nursing staff but made it through. he was walking in the [place] today. practiced with ice chips. speech will assess again on tuesday. he fiddles a lot w his
'apron' which seems helpful. tried cards, other games but patient cannot sustain focus and interest. will continue at this point as is. he IS better although there is a long way to go. discussed w the info i gleaned from pharmacy re
fish oil and probiotics. no changes made in psych meds.
--- NOTE | 2023-12-23 15:25 | PTCARENOTE ---
walked to bathroom bm and urination no issues. pt only slept 2-3 hours last night and was a bit agitated for shift lab technician but is back to being pleasant. pt walked nursing unit with PT, and speech said he had another good day working with them. pt oob
bed to chair as a x1 assist for this nurse. jevity 1.5 still remains at 55ml/hr with a 25ml flush. pt uncooperative with OT first attempt to work with him this shift. reattempted and walked unit and did basic ADLS with prompting in the bathroom. on
12/21 pt had new peg tube placement after removing himself overnight. placement was verified and peg is being used at this time. requesting fish oils to be added and probiotic after discussions with psych, pt remains on bed and chair alarms due
to impulsivity and constant redirection.
--- NOTE | 2023-12-23 15:37 | W.PN.HOSP.TC ---
Today's Communication/Plan
-
Ongoing disposition efforts
Assessment / Plan
Assessment / Plan
A/P:
Altered Mental Status suspected encephalopathy and questions raised about possible connection to COVID infection. Extensive evaluation including evaluation at [place] with no clear diagnosis.
Possible dementia to begin with now with behavioral disturbances intermittently.
- cw seroquel
- Psychiatry following
- Confusion and delirium following covid infection with multiple infections and hypernatremia and so on.
-repeat LP and EEG and Brain MRI from [facility] did not show any significant findings
- Status post course of Paxlovid
- Remains Off of restraints.
Recurrent aspiration pneumonia
Sepsis with Bacteremia
-s/p multiple course of antibiotics
- NPO, non oral meds--> changed meds to through tube on 12/11.
- continue tube feeds
- Speech language therapy following - start oral diet if and when cleared.
Pre-DM
-Blood sugars at decent levels but some elevated numbers so continue to monitor.
Dysphagia
-currently on tube feedings
Urinary retention:
Hx urethral stricture
Ford catheter removed at [place] and placed on [place] catheter.
Now on Diaper
Past medical problems:
Essential hypertension
Dyslipidemia
Prediabetes mellitus
TIA/brain infarcts
PVD with carotid stenosis status post left CEA
Prostate cancer
DVT prophylaxis:
hep subQ
DNR
DW at bedside.
Medically stable for discharge. Ongoing disposition efforts.
Anticipated Discharge: Within 24 hours
Subjective/Interval History
-
Date of Service: December 23, 2023
Remains confused. But according to at bedside more periods of lucidity.
Objective Data
-
Labs:
Laboratory Results
12/23/23
06:40
Sodium 138
Potassium 4.4
Chloride 101
Carbon Dioxide 29
BUN 25 H
Creatinine 0.6 L
Glucose 102 H
Calcium 8.7
Vital Signs:
Vital Signs
Temp Pulse Resp BP Pulse Ox
97.6 F 89 18 160/64 97
12/23/23 07:00 12/23/23 07:00 12/23/23 07:00 12/23/23 09:16 12/23/23 11:28
I&O
12/22/23 12/23/23 12/24/23
06:59 06:59 06:59
Intake Total 0 / 0 960 / 960
Output Total 300 / 300 300 / 300
Balance -300 / -300 660 / 660
Review of Systems
-
Unable to obtain full review of systems at this time due to: Dementia
Physical Exam
-
General: Comfortable
Respiratory: Non Labored Respirations; Negative Accessory Resp Muscle Use
Cardiac: Regular Rhythm and S1/S2
Neuro: Awake and Alert; Negative Oriented
Psych: Calm and Confused; Negative Agitated
Data Reviewed
-
Labs: Labs Reviewed by me
--- NOTE | 2023-12-23 16:57 | CM ---
met witth patient and at bedside.patient remains confused-continue with seroquel,restraints off,peg tube with tube feedings/meds through tube,was using a [place] catheter now with diapers.spoke with about contacting [facility]. hoa
explained that she did leave a m for chester at facility.also sent responses to some of the other snf facilties to look for an open bed for patient. Plan:snf when bed is available.
[2023-12-23 17:09] LABS: Glucose - Point of Care 115 mg/dl (70-99)
[2023-12-23] MEDS: LIPITOR 40 MG TUBE (18:16)
[2023-12-23] MEDS: LOPRESSOR TUBE (21:22)
--- NOTE | 2023-12-23 21:25 | W.PN.UPDATE ---
Update Note
Progress Note Update
RN reports hypotension with Lopressor 50mg last night and SBP in low 90s. Today bp 116/53, hr 92. Will hold tonight dose of 50mg and will give one time order of Lopressor 25mg.
[2023-12-23] MEDS: LOPRESSOR 25 MG TUBE (22:02)
[2023-12-23] MEDS: SEROQUEL 50 MG TUBE (22:02)
[2023-12-24 00:06] LABS: Glucose - Point of Care 114 mg/dl (70-99)
[2023-12-24] MEDS: NOVOLOG FLEXPEN-LOW RESISTANCE SC ×5 (00:08→23:09)
[2023-12-24 05:52] LABS: Glucose - Point of Care 142 mg/dl (70-99)
[2023-12-24 06:00] VITALS: BMI 18.6
[2023-12-24 07:40] VITALS: BP 108/50
[2023-12-24] MEDS: ALTACE 10 MG TUBE (09:51)
[2023-12-24] MEDS: PEPCID 20 MG TUBE (09:52)
[2023-12-24] MEDS: LOPRESSOR 50 MG TUBE ×2 (09:55→20:48)
[2023-12-24] MEDS: HEPARIN 5000 UNITS SC ×2 (09:56→20:48)
[2023-12-24] MEDS: LOW STRENGTH ASPIRIN 81 MG TUBE (09:56)
[2023-12-24] MEDS: VITAMIN B1 100 MG TUBE (09:56)
[2023-12-24] MEDS: D-VI-SOL (Vitamin D3) 10 MCG TUBE (11:03)
--- NOTE | 2023-12-24 11:14 | W.PN.HOSP.TC ---
Today's Communication/Plan
-
ongoing dispo efforts
Assessment / Plan
Assessment / Plan
A/P:
Altered Mental Status suspected encephalopathy and questions raised about possible connection to COVID infection. Extensive evaluation including evaluation at [place] with no clear diagnosis.
Possible dementia to begin with now with behavioral disturbances intermittently.
- cw seroquel
- Psychiatry following
- Confusion and delirium following covid infection with multiple infections and hypernatremia and so on.
- repeat LP and EEG and Brain MRI from [facility] did not show any significant findings
- Status post course of Paxlovid
- Remains Off of restraints.
Recurrent aspiration pneumonia
Sepsis with Bacteremia
-s/p multiple course of antibiotics
- NPO, non oral meds--> changed meds to through tube on 12/11.
- continue tube feeds
- Speech language therapy following - start oral diet if and when cleared.
Pre-DM
-Blood sugars at decent levels but some elevated numbers so continue to monitor.
Dysphagia
-currently on tube feedings
Urinary retention:
Hx urethral stricture
Ford catheter removed at [place] and placed on [place] catheter.
Now on Diaper
Past medical problems:
Essential hypertension
Dyslipidemia
Prediabetes mellitus
TIA/brain infarcts
PVD with carotid stenosis status post left CEA
Prostate cancer
DVT prophylaxis:
hep subQ
DNR
Medically stable for discharge. Ongoing disposition efforts.
Anticipated Discharge: > 48 hours
Subjective/Interval History
-
Date of Service: December 24, 2023
No issues overnight
Objective Data
-
Vital Signs:
Vital Signs
Temp Pulse Resp BP Pulse Ox
97.7 F 66 18 108/50 100
12/24/23 07:40 12/24/23 09:55 12/24/23 07:40 12/24/23 09:55 12/23/23 23:30
I&O
12/23/23 12/24/23 12/25/23
06:59 06:59 06:59
Intake Total 960 / 960 2039
Output Total 300 / 300
Balance 660 / 660 2039
Review of Systems
-
Unable to obtain full review of systems at this time due to: Dementia
Physical Exam
-
General: No Apparent Distress
Respiratory: Non Labored Respirations; Negative Accessory Resp Muscle Use
Cardiac: Regular Rhythm and S1/S2
GI: Soft and Peg Tube
Neuro: Awake and Alert
Psych: Calm and Confused
[2023-12-24 12:11] LABS: Glucose - Point of Care 132 mg/dl (70-99)
--- NOTE | 2023-12-24 14:32 | W.PN.UPDATE ---
Update Note
Progress Note Update
patient seen chart reviewed. and friends at bedside. the patient continues to do much better at this point. he is able to engage in conversation that is appropriate. these are relatively short snippets interspersed with less germane comments
but overall he is steadily making headway cognitively. he is ot requiring prn's at this point. he is spending more time in a chair. disposition is being addressed.
[2023-12-24 15:40] VITALS: BP 133/51
[2023-12-24] MEDS: LIPITOR 40 MG TUBE (17:41)
[2023-12-24 18:14] LABS: Glucose - Point of Care 60 mg/dl (70-99)
[2023-12-24] MEDS: DEXTROSE 50% SYRINGE 12.5 GRAMS IV (18:31)
[2023-12-24 18:55] LABS: Glucose - Point of Care 145 mg/dl (70-99)
[2023-12-24 21:06] LABS: Glucose - Point of Care 118 mg/dl (70-99)
[2023-12-24] MEDS: SEROQUEL 50 MG TUBE (23:01)
[2023-12-24 23:09] LABS: Glucose - Point of Care 137 mg/dl (70-99)
[2023-12-24 23:55] VITALS: BP 144/67
[2023-12-25 04:56] LABS: Glucose - Point of Care 98 mg/dl (70-99)
[2023-12-25] MEDS: NOVOLOG FLEXPEN-LOW RESISTANCE SC ×4 (05:12→23:04)
[2023-12-25 05:15] VITALS: BMI 18.3
[2023-12-25 07:45] VITALS: BP 129/47
[2023-12-25] MEDS: VITAMIN B1 100 MG TUBE (09:31)
[2023-12-25] MEDS: LOW STRENGTH ASPIRIN 81 MG TUBE (09:31)
[2023-12-25] MEDS: PEPCID 20 MG TUBE (09:31)
[2023-12-25] MEDS: HEPARIN 5000 UNITS SC ×2 (09:31→20:01)
[2023-12-25] MEDS: LOPRESSOR 50 MG TUBE ×2 (09:31→20:00)
[2023-12-25] MEDS: D-VI-SOL (Vitamin D3) 10 MCG TUBE (09:32)
--- NOTE | 2023-12-25 11:10 | W.PN.HOSP.TC ---
Today's Communication/Plan
-
ongoing disposition efforts
Assessment / Plan
Assessment / Plan
A/P:
Altered Mental Status suspected encephalopathy and questions raised about possible connection to COVID infection. Extensive evaluation including evaluation at [place] with no clear diagnosis.
Possible dementia to begin with now with behavioral disturbances intermittently.
- cw seroquel
- Psychiatry following
- Confusion and delirium following covid infection with multiple infections and hypernatremia and so on.
- repeat LP and EEG and Brain MRI from [facility] did not show any significant findings
- Status post course of Paxlovid
- Remains Off of restraints
- Improving cognitive function
Recurrent aspiration pneumonia
Sepsis with Bacteremia
-s/p multiple course of antibiotics
- NPO, non oral meds--> changed meds to through tube on 12/11.
- continue tube feeds
- Speech language therapy following - start oral diet if and when cleared.
Pre-DM
-Blood sugars at decent levels but some elevated numbers so continue to monitor.
Dysphagia
-currently on tube feedings
Urinary retention:
Hx urethral stricture
Ford catheter removed at [place] and placed on [place] catheter.
Now on Diaper
Past medical problems:
Essential hypertension
Dyslipidemia
Prediabetes mellitus
TIA/brain infarcts
PVD with carotid stenosis status post left CEA
Prostate cancer
DVT prophylaxis:
hep subQ
DNR
Medically stable for discharge. Ongoing disposition efforts.
Anticipated Discharge: Within 24 hours
Subjective/Interval History
-
Date of Service: December 25, 2023
no overnight events.
Patient oriented today for the first time-he says he is in a hospital but could not name it.
Appropriate responses to the questions.
'Oh , it is tuesday so i dont need to get up early'
Pleasantly confused but no agitation.
Objective Data
-
Vital Signs:
Vital Signs
Temp Pulse Resp BP Pulse Ox
98.7 F 61 16 129/47 100
12/25/23 07:45 12/25/23 09:31 12/25/23 07:45 12/25/23 09:31 12/25/23 07:45
I&O
12/24/23 12/25/23 12/26/23
06:59 06:59 06:59
Intake Total 2039
Balance 2039
Review of Systems
-
Unable to obtain full review of systems at this time due to: Dementia
Physical Exam
-
Respiratory: Non Labored Respirations; Negative Accessory Resp Muscle Use
Cardiac: Regular Rhythm and S1/S2
GI: Soft
Neuro: Awake, Alert, Oriented (self and person) and No Motor Deficits
Psych: Calm and Confused; Negative Agitated
[2023-12-25 12:21] LABS: Glucose - Point of Care 127 mg/dl (70-99)
--- NOTE | 2023-12-25 12:53 | W.PN.UPDATE ---
Update Note
Progress Note Update
patient seen chart reviewed. spoke with nursing who report earlier mr kay was a little more irritable. i found him much he same. he has a humorously sarcastic attitude sometimes which to me is an indication that he is gettig better albeit very
gradually. would like to see if he could be more active physically. he has not had PT yet. asked to ask PT if socks and shoes would offer him more support and if a walker might allow to take him on some walks about the unit. mr kay is
feeling a bit imprisoned. he told me he feels like he is surrounded by barbed wire and just wants to go home. again it is a good sign that he is recognizing this. discussed w the possibilities re disposition. i see her as a necessary and
devoted advocate for her and encouraged her to be active in this phase of finding an appropriate placement for him. patient has swallowing test tuesday. if he could start to eat that would be a boon i woud say to his recovery.
[2023-12-25 15:40] VITALS: BP 116/57
[2023-12-25] MEDS: LIPITOR 40 MG TUBE (17:53)
[2023-12-25 18:12] LABS: Glucose - Point of Care 104 mg/dl (70-99)
[2023-12-25] MEDS: SEROQUEL 50 MG TUBE (22:31)
[2023-12-25 23:03] LABS: Glucose - Point of Care 122 mg/dl (70-99)
[2023-12-25 23:43] VITALS: BP 142/51
[2023-12-26] MEDS: ATIVAN 0.5 MG IV ×2 (00:25→23:02)
--- NOTE | 2023-12-26 00:29 | PTCARENOTE ---
Pt frequently climbing out of bed. Belligerent to staff at times. Seroquel given at 2230 with no affect. Discussed with house INTERPRETIVE NATURALIST and pt given IV ativan. Will continue to monitor closely.
[2023-12-26] MEDS: NOVOLOG FLEXPEN-LOW RESISTANCE SC ×4 (06:20→23:32)
[2023-12-26 06:21] LABS: Glucose - Point of Care 126 mg/dl (70-99)
[2023-12-26 07:40] VITALS: BP 162/72
--- NOTE | 2023-12-26 08:31 | W.PN.HOSP.TC ---
Today's Communication/Plan
-
VSE today. Discharge planning in progress.
Assessment / Plan
Assessment / Plan
Physical exam:
General: Acute on chronically ill
HEENT: Normocephalic, Atraumatic and Dry Mucous Membranes
Respiratory: Clear to Auscultation; Negative Wheezes, Rales or Rhonchi
Cardiac: Regular Rhythm and S1/S2
GI: Soft, Nontender and Nondistended
Musculoskeletal: No Clubbing, No Cyanosis and No Edema
Neuro: Awake, Alert and Disoriented
Psych: Calm
A/P:
Altered Mental Status suspected encephalopathy and questions raised about possible connection to COVID infection. Extensive evaluation including evaluation at [place] with no clear diagnosis.
Possible dementia to begin with now with behavioral disturbances intermittently.
- cw seroquel
- Psychiatry following
- Confusion and delirium following covid infection with multiple infections and hypernatremia and so on.
- repeat LP and EEG and Brain MRI from [facility] did not show any significant findings
- Status post course of Paxlovid
- Remains Off of restraints
- Improving cognitive function
-Discussed with at bedside today. asked if we can avoid as needed sedatives overnight.
Recurrent aspiration pneumonia
Sepsis with Bacteremia
-s/p multiple course of antibiotics
- NPO, non oral meds--> changed meds to through tube on 12/11.
- continue tube feeds
- Speech language therapy following - start oral diet if and when cleared.
-VSE repeated today on 12/25 and while there is some improvement, speech therapy recommends to continue n.p.o.
Pre-DM
-Blood sugars at decent levels but some elevated numbers so continue to monitor.
Dysphagia
-currently on tube feedings
Urinary retention:
Hx urethral stricture
Ford catheter removed at [place] and placed on [place] catheter.
Now on Diaper
Past medical problems:
Essential hypertension
Dyslipidemia
Prediabetes mellitus
TIA/brain infarcts
PVD with carotid stenosis status post left CEA
Prostate cancer
DVT prophylaxis:
hep subQ
DNR
Medically stable for discharge. Ongoing disposition efforts.
Anticipated Discharge: 24 - 48 hours
Subjective/Interval History
-
Date of Service: December 26, 2023
Patient required some doses of benzodiazepine overnight. Appears very calm this morning.
Objective Data
-
Vital Signs:
Vital Signs
Temp Pulse Resp BP Pulse Ox
98.1 F 61 18 142/51 98
12/25/23 23:43 12/25/23 23:43 12/25/23 23:43 12/25/23 23:43 12/25/23 23:43
I&O
12/25/23 12/26/23 12/27/23
06:59 06:59 06:59
Intake Total 2160 / 2160 2160 / 2160
Balance 2160 / 2160 2160 / 2160
--- NOTE | 2023-12-26 09:50 | PTOTSP ---
Speech Language Pathology
Pt seen for dysphagia tx. Sitting upright in carrington chair upon arrival. Confused conversation noted with pt thinking he was in college and getting ready to swim, but he was alert and able to participate in therapy. Wet voice noted at rest, which he
was able to clear with a cued cough. Seen with ice chips. Pt able to complete 10 effortful swallows with use of ice chips and saliva. No wet vocal quality noted with limited ice chips.
Pt has been able to actively participate in dysphagia since (with cueing) since 12/20. Will repeat VSE to see if improved participation has improved swallow function.
Recommend:
(1) VSE
(2) Continue NPO
(3) Oral care 4x/day with suctioning as needed
(4) Non-oral meds
(5) Allow ice chips post oral care given supervision per Aspiration Risk Hydration Protocol (ARHP)
(6) DENTURE FINISHER to follow
[2023-12-26] MEDS: D-VI-SOL (Vitamin D3) 10 MCG TUBE (09:56)
[2023-12-26] MEDS: HEPARIN 5000 UNITS SC ×2 (09:57→20:38)
[2023-12-26] MEDS: PEPCID 20 MG TUBE (09:58)
[2023-12-26] MEDS: LOW STRENGTH ASPIRIN 81 MG TUBE (09:58)
[2023-12-26] MEDS: VITAMIN B1 100 MG TUBE (09:58)
[2023-12-26] MEDS: LOPRESSOR 50 MG TUBE ×2 (10:00→20:38)
--- NOTE | 2023-12-26 10:45 | PTOTSP ---
Speech Language Pathology
VIDEOFLUOROSCOPIC SWALLOWING EXAMINATION (VSE) completed. Overall, pt with mod-severe pharyngeal dysphagia. Slight improvement since last VSE completed. However, pt continues with penetration/aspiration of majority of consistencies trialed.
Aspiration continues to be silent.
Recommend:
(1) Continued NPO
(2) Oral care 4x/day with suctioning as needed
(3) Non-oral meds
(4) Allow ice chips post oral care given supervision per Aspiration Risk Hydration Protocol (ARHP)
(5) PETROLEUM REFINING FIRER to follow. Will trial tsp amounts of thin water in therapy sessions only
[2023-12-26 11:45] LABS: Glucose - Point of Care 140 mg/dl (70-99)
--- NOTE | 2023-12-26 12:52 | CM ---
CM following re: discharge planning.
Reviewed pt's chart, met with pt, had a long conversation with pt's daughter Waleska and spouse Terese. Pt still NPO, VS today.
Pt's spouse requested following SNFs to check: [facility], [facility], [facility] and to send updated pt's clinical to SNFs pt's spouse requested before. referral made.
D/C plan: preferred SNF
CM will follow to assist pt with discharge to a preferred and accepted SNF.
[2023-12-26 15:55] VITALS: BP 131/55
[2023-12-26 17:22] LABS: Glucose - Point of Care 106 mg/dl (70-99)
--- NOTE | 2023-12-26 17:27 | W.PN.UPDATE ---
Update Note
Progress Note Update
Evaluated the patient after found on the floor. Discussed with nursing. No signs of trauma, no LOC. Physical exam unremarkable. No need for further w/u but strict fall precautions.
--- NOTE | 2023-12-26 17:30 | PTCARENOTE ---
Fall note: patient found on the floor on his back by PCT Belia. Chair alarm was going off; PCT ran into room and patient was on floor to the left of his carrington chair, lying on his back with knees bent, head off the floor. This RN came into room next.
Patient was assisted up and onto the side of the bed and assessed for injuries - none noted. Hospitalist Dr Bullard came to assess patient for injuries; none noted. Patient was placed in bed with bed alarm in place.
[2023-12-26] MEDS: LIPITOR 40 MG TUBE (18:22)
--- NOTE | 2023-12-26 21:30 | PTCARENOTE ---
Rec'd pt at change of shift. PT disoriented to time but oriented to self and place. Pt denied any pain and attempted to exit bed without assistance. Pt had previous fall on prior shift 12/25 (7a-7p). Pt unable to reoriented. Continuous attempts
to leave bed and reorient patient. Pt combative with RN and attempted to push RN away. Pt given multiple attempts at reorientation. Bed alarm continuously being triggered. Pt unable to maintain safe environment with self, RN not able to leave
bedside. HARDIK prasad notified. Pt maintained on bed alarm and given one time dose of Ativan per order. Pt educated on importance of calling for help before ambulating, however in need of constant redirection. Pt resting with call gaines in reach and
bed alarm on.
[2023-12-26] MEDS: SEROQUEL 50 MG TUBE (22:06)
[2023-12-26] MEDS: NSS (PRESERVATIVE FREE) 0.25 ML IV (23:03)
[2023-12-26 23:17] LABS: Glucose - Point of Care 142 mg/dl (70-99)
[2023-12-26 23:49] VITALS: BP 101/50
[2023-12-27 00:30] LABS: Glucose - Point of Care 149 mg/dl (70-99)
[2023-12-27 06:36] LABS: Glucose - Point of Care 136 mg/dl (70-99)
[2023-12-27 07:08] LABS: Glucose - Point of Care 127 mg/dl (70-99)
[2023-12-27] MEDS: NOVOLOG FLEXPEN-LOW RESISTANCE SC ×4 (07:14→23:46)
[2023-12-27 07:50] VITALS: BP 136/55
--- NOTE | 2023-12-27 08:11 | W.PN.HOSP.TC ---
Addendum entered and electronically signed by Júnior Bullard MD 12/27/23 14:23:
Updated over the phone today 12/26
Original Note:
Today's Communication/Plan
-
Discharge planning
Assessment / Plan
Assessment / Plan
Physical exam:
General: Acute on chronically ill
HEENT: Normocephalic, Atraumatic and Dry Mucous Membranes
Respiratory: Clear to Auscultation; Negative Wheezes, Rales or Rhonchi
Cardiac: Regular Rhythm and S1/S2
GI: Soft, Nontender and Nondistended
Musculoskeletal: No Clubbing, No Cyanosis and No Edema
Neuro: Awake, Alert and Disoriented
Psych: Calm
A/P:
Altered Mental Status suspected encephalopathy and questions raised about possible connection to COVID infection. Extensive evaluation including evaluation at [place] with no clear diagnosis.
Possible dementia to begin with now with behavioral disturbances intermittently.
- cw seroquel
- Psychiatry following
- Confusion and delirium following covid infection with multiple infections and hypernatremia and so on.
- repeat LP and EEG and Brain MRI from [facility] did not show any significant findings
- Status post course of Paxlovid
- Remains Off of restraints
- Improving cognitive function
-Discussed with at bedside yesterday. asked if we can avoid as needed sedatives overnight.
Recurrent aspiration pneumonia
Sepsis with Bacteremia
-s/p multiple course of antibiotics
- NPO, non oral meds--> changed meds to through tube on 12/11.
- continue tube feeds
- Speech language therapy following - start oral diet if and when cleared.
-VSE repeated today on 12/25 and while there is some improvement, speech therapy recommends to continue n.p.o.
Pre-DM
-Blood sugars at decent levels but some elevated numbers so continue to monitor.
Dysphagia
-currently on tube feedings
Urinary retention:
Hx urethral stricture
Ford catheter removed at [place] and placed on [place] catheter.
Now on Diaper
Past medical problems:
Essential hypertension
Dyslipidemia
Prediabetes mellitus
TIA/brain infarcts
PVD with carotid stenosis status post left CEA
Prostate cancer
DVT prophylaxis:
hep subQ
DNR
Medically stable for discharge. Ongoing disposition efforts.
Anticipated Discharge: > 48 hours
Subjective/Interval History
-
Date of Service: December 27, 2023
Some Ativan given overnight. Afebrile
Objective Data
-
Vital Signs:
Vital Signs
Temp Pulse Resp BP Pulse Ox
97.5 F 52 18 101/50 100
12/26/23 15:55 12/26/23 23:49 12/26/23 23:49 12/26/23 23:49 12/27/23 01:22
I&O
12/26/23 12/27/23 12/28/23
06:59 06:59 06:59
Intake Total 2160 / 2160 1330 / 1330 960 / 960
Output Total 200 / 200
Balance 2160 / 2160 1130 / 1130 960 / 960
[2023-12-27] MEDS: VITAMIN B1 100 MG TUBE (09:21)
[2023-12-27] MEDS: LOW STRENGTH ASPIRIN 81 MG TUBE (09:22)
[2023-12-27] MEDS: HEPARIN 5000 UNITS SC ×2 (09:22→21:41)
[2023-12-27] MEDS: PEPCID 20 MG TUBE (09:29)
[2023-12-27] MEDS: LOPRESSOR 50 MG TUBE ×2 (09:32→21:41)
[2023-12-27] MEDS: D-VI-SOL (Vitamin D3) 10 MCG TUBE (09:47)
--- NOTE | 2023-12-27 11:28 | W.PN.UPDATE ---
Update Note
Progress Note Update
Patient seen with RN, sitting up in chair, chart reviewed and discussed with RN. Mr. Wallace tells me he is doing well today. He did receive a dose of Ativan overnight for reportedly having some agitation with not wanting to stay in bed. He did have
a fall yesterday with no injury reported. No overt daytime sedation noted. No side effects noted. He denies any issues or concerns today. He is anticipated for DC once SNF placement obtained. was not present at time, will attempt to reach for
any questions.
Impression/Recommendation: Delirium with intermittent agitation- improved. Continue with current med regimen which includes Seroquel 50mg HS.
[2023-12-27 11:49] LABS: Glucose - Point of Care 100 mg/dl (70-99)
[2023-12-27 11:53] VITALS: BP 110/56; PULSE 57; O2SAT 99
--- NOTE | 2023-12-27 12:36 | PTCARENOTE ---
This RN spoke with pts at bedside, informed her of pt's fall yesterday and status of the pt overnight. Pt's requested to speak with speech and MD, this RN reached out to both to come speak at bedside or call . expressing concerns
of pts sleep cycle being interrupted, signs posted on door and wall in pts room instructing staff to turn lights on and get pt OOB during day and put pt in bed and turn lights off during the nighttime (per 's request). Pt resting comfortably in
the chair at this time, expressing gratitude for helpful conversation and care.
[2023-12-27 15:30] VITALS: BP 131/57
--- NOTE | 2023-12-27 16:00 | PTCARENOTE ---
Pt restless and attempting to climb out of chair. Pt assisted back to bed, still agitated so this RN assisted pt with using the urinal. Pt repositioned in bed, attempted to call to express concerns with care and need for assistance in care.
Call went to voicemail. Pt resting comfortably in bed at this time with bed alarm in place.
--- NOTE | 2023-12-27 16:40 | CM ---
Reviewed the chart notes. Patient remains NPO with tube feedings. Patient ambulated 120' with rolling walker and min assist of one. CM continues to be available to patient/family and is monitoring medical plan for needs at discharge.
Plan: Discharge to SNF/rehab once bed found and patient's spouse in agreement.
[2023-12-27] MEDS: LIPITOR 40 MG TUBE (17:10)
[2023-12-27 17:22] LABS: Glucose - Point of Care 117 mg/dl (70-99)
[2023-12-27] MEDS: SEROQUEL 50 MG TUBE (21:42)
[2023-12-27 23:14] VITALS: BP 106/46
[2023-12-27 23:45] LABS: Glucose - Point of Care 136 mg/dl (70-99)
[2023-12-28] MEDS: NOVOLOG FLEXPEN-LOW RESISTANCE SC ×3 (05:48→18:05)
[2023-12-28 05:49] LABS: Glucose - Point of Care 100 mg/dl (70-99)
[2023-12-28 06:00] VITALS: BMI 18.5
[2023-12-28 07:35] VITALS: BP 122/58
--- NOTE | 2023-12-28 08:38 | W.PN.HOSP.TC ---
Today's Communication/Plan
-
Discharge planning ongoing
Assessment / Plan
Assessment / Plan
Physical exam:
General: Acute on chronically ill
HEENT: Normocephalic, Atraumatic and Dry Mucous Membranes
Respiratory: Clear to Auscultation; Negative Wheezes, Rales or Rhonchi
Cardiac: Regular Rhythm and S1/S2
GI: Soft, Nontender and Nondistended
Musculoskeletal: No Clubbing, No Cyanosis and No Edema
Neuro: Awake, Alert and Disoriented
Psych: Calm
A/P:
Altered Mental Status suspected encephalopathy and questions raised about possible connection to COVID infection. Extensive evaluation including evaluation at [place] with no clear diagnosis.
Possible dementia to begin with now with behavioral disturbances intermittently.
- cw seroquel
- Psychiatry following
- Confusion and delirium following covid infection with multiple infections and hypernatremia and so on.
- repeat LP and EEG and Brain MRI from [facility] did not show any significant findings
- Status post course of Paxlovid
- Remains Off of restraints
- Improving cognitive function
-Discussed with at bedside yesterday. asked if we can avoid as needed sedatives overnight.
-Did not require any extra sedatives last night or today 12/27. Discussed with RN and nurse professional services manager today.
-Psychiatry okay to use sedative as long as judiciously used.
-manager managed care to meet with to work on discharge disposition
-Will discuss with later today about placing order for discharge since patient is ready to transition to rehab
Recurrent aspiration pneumonia
Sepsis with Bacteremia
-s/p multiple course of antibiotics
- NPO, non oral meds--> changed meds to through tube on 12/11.
- continue tube feeds
- Speech language therapy following - start oral diet if and when cleared.
-VSE repeated today on 12/25 and while there is some improvement, speech therapy recommends to continue n.p.o.
Pre-DM
-Blood sugars at decent levels but some elevated numbers so continue to monitor.
Dysphagia
-currently on tube feedings
Urinary retention:
Hx urethral stricture
Ford catheter removed at [place] and placed on [place] catheter.
Now on Diaper
Past medical problems:
Essential hypertension
Dyslipidemia
Prediabetes mellitus
TIA/brain infarcts
PVD with carotid stenosis status post left CEA
Prostate cancer
DVT prophylaxis:
hep subQ
DNR
Medically stable for discharge. Ongoing disposition efforts.
Anticipated Discharge: 24 - 48 hours
Subjective/Interval History
-
Date of Service: December 28, 2023
Patient alert and more cognitively sound but at the same time still have some comments that are particularly off. Did not require any extra sedatives last night. Discussed with RN and nurse professional services manager today.
Objective Data
-
Vital Signs:
Vital Signs
Temp Pulse Resp BP Pulse Ox
97.4 F 65 16 122/58 100
12/28/23 07:35 12/28/23 07:35 12/28/23 07:35 12/28/23 07:35 12/28/23 07:35
I&O
12/27/23 12/28/23 12/29/23
06:59 06:59 06:59
Intake Total 1330 / 1330 2921 / 2921
Output Total 200 / 200 1880 / 1880
Balance 1130 / 1130 1041 / 1041
[2023-12-28] MEDS: PEPCID 20 MG TUBE (09:17)
[2023-12-28] MEDS: VITAMIN B1 100 MG TUBE (09:17)
[2023-12-28] MEDS: LOPRESSOR 50 MG TUBE ×2 (09:17→20:21)
[2023-12-28] MEDS: HEPARIN 5000 UNITS SC ×2 (09:18→20:22)
[2023-12-28] MEDS: LOW STRENGTH ASPIRIN 81 MG TUBE (09:18)
[2023-12-28] MEDS: D-VI-SOL (Vitamin D3) 10 MCG TUBE (09:18)
[2023-12-28 09:58] VITALS: BP 125/49; PULSE 58; O2SAT 100
[2023-12-28 10:39] VITALS: BP 125/49; PULSE 54; O2SAT 100
--- NOTE | 2023-12-28 10:46 | CM ---
Reviewed the chart notes. Referrals resent with updated PT/OT notes. CM continues to be available to patient/family and is monitoring medical plan for needs at discharge.
Plan: Discharge to SNF/rehab once bed found.
[2023-12-28 11:42] LABS: Glucose - Point of Care 98 mg/dl (70-99)
--- NOTE | 2023-12-28 12:01 | W.PN.UPDATE ---
Update Note
Progress Note Update
patient seen chart reviewed.. spoke with nursing, PT as well as nurse mgr of the unit. mr kay was the best i have seen him cognitively speaking. i asked him about his travel experience and he told me about [place] when he was in [place] he was there w his then child scot and his first . he told me about the disagreement w his over where to live and how to raise their child which contributed to their eventual divorce. he spoke of how much
he wants to be out of the hospital. pt tells me he is doing much better. they agree that he could be up and about more frequently but have concerns about walking him bc safety issues. spoke with cm about ascertaining which agencies are
willing to consider him and having look at these and decide which to pursue. another issue is agitation which does occur in the evening and sometimes prevents patient from sleeping. has been adamant about no ativan and allegedly stating
i and his other physicians are opposed. for the record,i am not opposed to prn ativan for sleep. would not want to see it used frequently but once in a while for sleep or agitation might be helpful. i told mr kay i would see him later today or
tomorrow and he was very thoughtful and said i should not worry if i couldn't make it!
--- NOTE | 2023-12-28 15:33 | CM ---
Reviewed the chart notes and spoke with the patient and spouse at the bedside. Reviewed facilities that are willing to accept the patient. Patient's spouse requested that CM contact a few of the facilities that declined due to no bed availability.
Messages left for [facility] and [facility]. CM spoke with [facility] Admissions Liaison for [facility]. [facility] will have a bed available on Tuesday. Await call back from other facilities. Patient's spouse informed that the
patient is ready for discharge. CM continues to be available to patient/family and is monitoring medical plan for needs at discharge.
Plan: Discharge to SNF/rehab once bed found and precert obtained.
--- NOTE | 2023-12-28 15:47 | W.PN.UPDATE ---
Update Note
Progress Note Update
Discussed with , sister, and friend at bedside. Discussed with them that he is medically ready for discharge and we will initiate the process with the discharge order. brand strategy manager just met with them and they are looking into their options.
We also talked about trying not to use extra sedatives but sometimes it is needed or required and psychiatry will discuss with how best to approach this. Discussed with nurse supervisor asphalt paving earlier. Discussed with RN. Mitchell, our patient, looks
well this afternoon and conversing with me and family appropriately.
[2023-12-28 15:49] VITALS: BP 116/48
--- NOTE | 2023-12-28 16:33 | W.PN.UPDATE ---
Update Note
Progress Note Update
returned to see mr kay and to speak w his . coby is maintaining improvement. walked again today w staff and did well nursing tells me he was making jokes and was quite humorous. discussed w the issue of prn. she is against us leaving
a prn which i do understand but if mr kay is upset and cannot be calmed by other means the housekeeping assistant could be called to order a one time dose of ativan.
[2023-12-28 17:44] LABS: Glucose - Point of Care 74 mg/dl (70-99)
[2023-12-28] MEDS: LIPITOR 40 MG TUBE (18:21)
[2023-12-28] MEDS: SEROQUEL 50 MG TUBE (20:22)
[2023-12-28 23:17] VITALS: BP 115/52
[2023-12-29 00:24] LABS: Glucose - Point of Care 125 mg/dl (70-99)
[2023-12-29] MEDS: NOVOLOG FLEXPEN-LOW RESISTANCE SC ×4 (00:24→19:21)
[2023-12-29] MEDS: TYLENOL ORAL SOLUTION 650 MG TUBE (04:21)
[2023-12-29 06:23] LABS: Glucose - Point of Care 115 mg/dl (70-99)
[2023-12-29 07:52] VITALS: BP 125/50
--- NOTE | 2023-12-29 08:23 | W.PN.HOSP.TC ---
Addendum entered and electronically signed by Júnior Bullard MD 12/29/23 14:28:
Acute metabolic encephalopathy
Original Note:
Today's Communication/Plan
-
Discharge planning
Assessment / Plan
Assessment / Plan
Physical exam:
General: Acute on chronically ill
HEENT: Normocephalic, Atraumatic and Dry Mucous Membranes
Respiratory: Clear to Auscultation; Negative Wheezes, Rales or Rhonchi
Cardiac: Regular Rhythm and S1/S2
GI: Soft, Nontender and Nondistended
Musculoskeletal: No Clubbing, No Cyanosis and No Edema
Neuro: Awake, Alert and Disoriented
Psych: Calm
A/P:
Altered Mental Status suspected encephalopathy and questions raised about possible connection to COVID infection. Extensive evaluation including evaluation at [place] with no clear diagnosis.
Possible dementia to begin with now with behavioral disturbances intermittently.
- cw seroquel
- Psychiatry following
- Confusion and delirium following covid infection with multiple infections and hypernatremia and so on.
- repeat LP and EEG and Brain MRI from [facility] did not show any significant findings
- Status post course of Paxlovid
- Remains Off of restraints
- Improving cognitive function
-Discussed with at bedside yesterday. asked if we can avoid as needed sedatives overnight.
-Did not require any extra sedatives last night or today 12/27. Discussed with RN and nurse fast food manager today.
-Psychiatry okay to use sedative as long as judiciously used.
-operational risk manager to meet with to work on discharge disposition yesterday. ok with d/c order since 12/27
-Discussed with RN today
-Updated over the phone today 12/28
Recurrent aspiration pneumonia
Sepsis with Bacteremia
-s/p multiple course of antibiotics
- NPO, non oral meds--> changed meds to through tube on 12/11.
- continue tube feeds
- Speech language therapy following - start oral diet if and when cleared.
-VSE repeated today on 12/25 and while there is some improvement, speech therapy recommends to continue n.p.o.
Pre-DM
-Blood sugars at decent levels but some elevated numbers so continue to monitor.
Dysphagia
-currently on tube feedings
Urinary retention:
Hx urethral stricture
Ford catheter removed at [place] and placed on [place] catheter.
Now on Diaper
Past medical problems:
Essential hypertension
Dyslipidemia
Prediabetes mellitus
TIA/brain infarcts
PVD with carotid stenosis status post left CEA
Prostate cancer
DVT prophylaxis:
hep subQ
DNR
Medically stable for discharge. Ongoing disposition efforts.
Anticipated Discharge: 24 - 48 hours
Subjective/Interval History
-
Date of Service: December 29, 2023
no new events, afebrile
Objective Data
-
Vital Signs:
Vital Signs
Temp Pulse Resp BP Pulse Ox
97.4 F 58 16 125/50 99
12/29/23 07:52 12/29/23 07:52 12/29/23 07:52 12/29/23 07:52 12/29/23 07:52
I&O
12/28/23 12/29/23 12/30/23
06:59 06:59 06:59
Intake Total 2921 / 2921 960 / 960
Output Total 1880 / 1880 750 / 750
Balance 1041 / 1041 210 / 210
[2023-12-29] MEDS: VITAMIN B1 100 MG TUBE (09:10)
[2023-12-29] MEDS: LOPRESSOR 50 MG TUBE ×2 (09:11→20:24)
[2023-12-29] MEDS: PEPCID 20 MG TUBE (09:11)
[2023-12-29] MEDS: LOW STRENGTH ASPIRIN 81 MG TUBE (09:12)
[2023-12-29] MEDS: HEPARIN 5000 UNITS SC ×2 (09:12→20:24)
[2023-12-29] MEDS: D-VI-SOL (Vitamin D3) 10 MCG TUBE (09:22)
--- NOTE | 2023-12-29 09:47 | CM ---
Addendum entered by Kimberly Gutierrez RN 12/29/23 16:28:
Patient's spouse now not agreeable to [facility] after tour facility. Requests that CM continue to call facilities that have not returned CM calls. Additional referrals to be sent via [facility].
Addendum entered by Kimberly Gutierrez RN 12/29/23 16:01:
CM spoke with the patient's spouse at the bedside. Informed the spouse that [facility] and [facility] have not returned CM calls. Per spouse, she has selected [facility]. No precert required. Bed will be available tomorrow.
Original Note:
Reviewed the chart notes. CM left messages for [facility] and [facility] today inquiring about bed availability. [facility] will have a bed available on Tuesday. [facility] able to accept patient. Patient is
discharged. CM continues to be available to patient/family and is monitoring medical plan for needs at discharge.
Plan: Discharge to SNF/rehab once bed found. No precert required.
--- NOTE | 2023-12-29 10:22 | PN.CDI ---
CDI
- -
CDI:
Physician Documentation Request
Admit Date: 12/07/23 19:52
Dear Doctor Aleah,
Clinical Indicators:
Patient readmitted with altered mental status after evaluation at [facility].
12/20 PN, 'Altered Mental Status suspected encephalopathy and questions raised about possible connection to COVID infection...-Confusion and delirium following covid infection with multiple infections and hypernatremia and so on.'
Please clarify the likely type of encephalopathy.
Acute Metabolic Encephalopathy
Toxic Metabolic Encephalopathy
Other Encephalopathy, please specify
Use of terms such as suspected, likely, concern for, or probable (associated with a specific diagnosis that is being evaluated, monitored, or treated as if it exists) are acceptable and can be coded in the inpatient setting, when documented at the
time of discharge.
Thank you,
Idania Ortega RN BSN
CDI Specialist
available via tiger text
Please use your independent medical judgment in providing your response.
--- NOTE | 2023-12-29 11:00 | PTOTSP ---
Speech Language Pathology
Pt seen for dysphagia tx. Sitting upright in chair upon arrival. Pleasant and cooperative. Did not recall VSE being completed on 12/25 or discussing results. Reviewed course of dysphagia since initial admission to hospital in September and
results/recommendations from all 3 VSEs. Pt asking appropriate questions. Provided ice chips and teaspoon amounts of water during session. No overt signs of aspiration. Pt typically does not cough in response to aspiration, but on recent VSE,
only penetration (not aspiration) noted with thin liquids via tsp. Dysphagia exercises completed with typical min cueing required.
Recommend:
(1) Continued NPO
(2) Oral care 4x/day with suctioning as needed
(3) Non-oral meds
(4) Continue to allow ice chips post oral care given supervision per Aspiration Risk Hydration Protocol (ARHP). Also allow tsps of water as of now
(5) ANTICHECKING IRON WORKER to follow for dysphagia tx
[2023-12-29 12:14] LABS: Glucose - Point of Care 135 mg/dl (70-99)
--- NOTE | 2023-12-29 13:17 | W.PN.UPDATE ---
Update Note
Progress Note Update
patient seen chart reviewed. at bedside. the patient continues to improve. he is capable of real conversations at this point and today he told me about his father who was a bomber during the second world war and flew missions with the likes
of coby rojas. he is not completely with it. at one point he was fiddling with the feeding tube attachment thinking it was the remote but he readily stopped when this was pointed out to him. he is HUNGRY and told me he thought the speech
therapist was pleased this am with his progress. nursing said he could advance to spoonfuls of water. discussed disposition with mrs kay. she has asked a good friend to jamir traylor over the check out [facility] which she would likely accept if
they have a bed for him. no changes made in mr cooper's medications. he had a good night last evening. would continue w recommendation that if he becomes agitated and needs a prn staff contact the house office.r
[2023-12-29 15:52] VITALS: BP 114/48
[2023-12-29 17:34] LABS: Glucose - Point of Care 119 mg/dl (70-99)
[2023-12-29] MEDS: LIPITOR 40 MG TUBE (18:13)
[2023-12-29] MEDS: SEROQUEL 50 MG TUBE (21:18)
[2023-12-29 23:07] VITALS: BP 131/59
[2023-12-30 00:53] LABS: Glucose - Point of Care 109 mg/dl (70-99)
[2023-12-30] MEDS: NOVOLOG FLEXPEN-LOW RESISTANCE SC ×4 (00:53→17:35)
--- NOTE | 2023-12-30 02:14 | PTCARENOTE ---
Rec'd pt at change of shift. Pt forgetful but easily redirected to setting and time. Pt maintained on bed alarm for safety. Pt denied any pain and VSS. Pt agreed not to touch G tube, resting with abdominal binder protecting site and continuous
feeding infusing. Pt resting with call gaines in reach.
[2023-12-30 05:35] VITALS: BMI 18.5
[2023-12-30 06:35] LABS: Glucose - Point of Care 138 mg/dl (70-99)
[2023-12-30 07:04] VITALS: BP 161/62
[2023-12-30] MEDS: HEPARIN 5000 UNITS SC (09:07)
[2023-12-30] MEDS: LOPRESSOR 50 MG TUBE (09:07)
[2023-12-30] MEDS: D-VI-SOL (Vitamin D3) 10 MCG TUBE (09:07)
[2023-12-30] MEDS: VITAMIN B1 100 MG TUBE (09:07)
[2023-12-30] MEDS: LOW STRENGTH ASPIRIN 81 MG TUBE (09:07)
[2023-12-30] MEDS: PEPCID 20 MG TUBE (09:07)
--- NOTE | 2023-12-30 09:18 | W.PN.HOSP.TC ---
Today's Communication/Plan
-
Discharge planning ongoing.
Assessment / Plan
Assessment / Plan
Physical exam:
General: Acute on chronically ill
HEENT: Normocephalic, Atraumatic and Dry Mucous Membranes
Respiratory: Clear to Auscultation; Negative Wheezes, Rales or Rhonchi
Cardiac: Regular Rhythm and S1/S2
GI: Soft, Nontender and Nondistended
Musculoskeletal: No Clubbing, No Cyanosis and No Edema
Neuro: Awake, Alert and Disoriented
Psych: Calm
A/P:
Altered Mental Status suspected encephalopathy and questions raised about possible connection to COVID infection. Extensive evaluation including evaluation at [place] with no clear diagnosis.
Possible dementia to begin with now with behavioral disturbances intermittently.
- cw seroquel
- Psychiatry following
- Confusion and delirium following covid infection with multiple infections and hypernatremia and so on.
- repeat LP and EEG and Brain MRI from [facility] did not show any significant findings
- Status post course of Paxlovid
- Remains Off of restraints
- Improving cognitive function
-Discussed with at bedside yesterday. asked if we can avoid as needed sedatives overnight.
-Did not require any extra sedatives last night or today 12/27. Discussed with RN and nurse water project manager today.
-Psychiatry okay to use sedative as long as judiciously used.
-manager of network to meet with to work on discharge disposition prior. ok with d/c order since 12/27
-Discussed with RN today
-Updated over the phone yesterday 12/28
-Discussed with RN today on 12/29
-Discussed with home health care case manager today on 12/29 and possible discharge today. They wanted to cancel discharge from 12/[address] new discharge order today on 12/29.
-Will reach out to later today.
Recurrent aspiration pneumonia
Sepsis with Bacteremia
-s/p multiple course of antibiotics
- NPO, non oral meds--> changed meds to through tube on 12/11.
- continue tube feeds
- Speech language therapy following - start oral diet if and when cleared.
-VSE repeated today on 12/25 and while there is some improvement, speech therapy recommends to continue n.p.o.
Pre-DM
-Blood sugars at decent levels but some elevated numbers so continue to monitor.
Dysphagia
-currently on tube feedings
Urinary retention:
Hx urethral stricture
Ford catheter removed at [place] and placed on [place] catheter.
Now on Diaper
Past medical problems:
Essential hypertension
Dyslipidemia
Prediabetes mellitus
TIA/brain infarcts
PVD with carotid stenosis status post left CEA
Prostate cancer
DVT prophylaxis:
hep subQ
DNR
Medically stable for discharge. Ongoing disposition efforts.
Anticipated Discharge: Today
Subjective/Interval History
-
Date of Service: December 30, 2023
No new complaints. No new events overnight.
Objective Data
-
Vital Signs:
Vital Signs
Temp Pulse Resp BP Pulse Ox
97.4 F 58 16 161/62 99
12/30/23 07:04 12/30/23 09:07 12/30/23 07:04 12/30/23 09:07 12/30/23 07:04
I&O
12/29/23 12/30/23 12/31/23
06:59 06:59 06:59
Intake Total 960 / 960 1010 / 1010
Output Total 750 / 750 700 / 700
Balance 210 / 210 310 / 310
--- NOTE | 2023-12-30 09:18 | W.DCSUMMARY ---
Discharge Summary
Discharge Data
Date of Admission: 12/07/23
Date of Discharge: 12/30/23
-
Pending Results: No
Hospital Course
Patient is 78 years old male with history of mild cognitive impairment, TIA, hyperlipidemia, diabetes mellitus, presented to the hospital with mental status changes and COVID-19. Patient had a very prolonged hospital stay for more than 2 months.
He was treated with COVID with Paxlovid and finished treatment. He also had several episodes of aspiration pneumonia including bacteremia that were treated and completed course of antibiotics. Several specialists were in his case including
neurology, ID, psychiatry, urology, palliative care. He also had urinary retention and required Ford catheter placement but later on was able to be removed. He also had significant dysphagia and required PEG placement. He was able to be fed
through tube feedings and tolerated. He had several electrolyte abnormalities that were improved. Overall his main issue was encephalopathy that was felt to be related to COVID-19. There was an element of underlying cognitive deficits exacerbated
with delirium and COVID-19 encephalopathy. Patient had extensive workup for his encephalopathy including brain MRI, LP's, multiple serological testing, and also he was transferred to [facility] and they also pursue further workup for encephalopathy and
all the test came back unremarkable so he was transferred back to our hospital for discharge disposition. Discussions about palliative care and hospice care took place but family did not consider hospice. Eventually it was found a skilled facility
that was able to accept him. He is being discharged in relatively stable condition.
Discharge duration: 42 minutes
Discharge Plan
-
Patient Disposition: [facility]
Discharge Diagnosis/Procedures: Toxic metabolic encephalopathy/delirium. Recurrent aspiration pneumonia. Urinary retention. Dysphagia.
Diet: Other diet
Additional Diets: Tube feedings Jevity 1.5 at 55 mL/h with 25 cc free water every 8 hours and as needed.
Activity: As tolerated
Blood Work: PCP to order CBC, CMP within 1 week
Referrals:
Primary care, provider [Other] (See less than 1 week)
Kelly Escobar MD [Active] - in one to two months
Prescriptions:
New
quetiapine 25 mg Tablet
50 mg feeding tube HS 30 Days Qty: 0 0RF
atorvastatin 40 mg Tablet
40 mg feeding tube QPM 30 Days Qty: 0 0RF
thiamine HCl (vitamin B1) 100 mg Tablet
100 mg feeding tube DAILY 20 Days Qty: 0 0RF
famotidine 20 mg Tablet
20 mg feeding tube DAILY 30 Days Qty: 0 0RF
bisacodyl 10 mg Suppository
10 mg MN [id number] PRN (Reason: constipation) 30 Days Qty: 0 0RF
metoprolol tartrate 50 mg Tablet
50 mg feeding tube BID 30 Days Qty: 0 0RF
aspirin 81 mg Tablet,Chewable
81 mg feeding tube DAILY 30 Days Qty: 0 0RF
cholecalciferol (vitamin D3) [Pediatric D-Lara] 10 mcg/mL (400 unit/mL) Drops
10 mcg feeding tube DAILY 30 Days Qty: 0 0RF
acetaminophen 650 mg/20.3 mL Solution
650 mg feeding tube Q4HPRN PRN (Reason: mild pain/CRUZ/temp> 100.4F) 20 Days Qty: 0 0RF
Discontinued
aspirin 81 MG tablet,delayed release (DR/EC)
81 mg DAILY
ramipril 10 MG capsule
10 mg PO QPM
metformin 500 mg Tablet
500 mg PO BIDWMEAL
thiamine HCl (vitamin B1) 250 mg Tablet
250 mg PO BID
Visbiome 112.5 billion cell Capsule
1 cap PO DAILY
cholecalciferol (vitamin D3) [Vitamin D3] 50 mcg (2,000 unit) Tablet
100 mcg PO DAILY
atorvastatin 40 MG tablet
40 mg QPM
metoprolol tartrate 50 mg Tablet
50 mg PO BID
Discharge Orders:
Discharge Patient (As Directed); Ordered 12/30/23
Ordered By: Júnior Bullard
Discharge Date and Time
Discharge Date/Time: 12/30/23 19:53
Print Language: MAORI
--- NOTE | 2023-12-30 10:08 | CM ---
Addendum entered by Kimberly Gutierrez RN 12/30/23 14:24:
Patient has been accepted at [facility].
Call report to: [phone]
Fax report to: [phone]
Medical and transport forms on the chart.
Addendum entered by Kimberly Gutierrez RN 12/30/23 13:12:
Detailed Notice of Discharge left at bedside for the patient's spouse to review.
Original Note:
Reviewed the chart notes and spoke with the patient's spouse via telephone. [facility] reviewed and [facility] phone number provided. Spouse requested additional updated information be sent to [facility] and [facility] Referrals sent. Patient's spouse informed of the patient's discharge. ELIECER spoke with Angeline ([phone]) with [facility], she will have directors review for placement.
Plan: Discharge today. [facility] has a confirmed bed to offer.
[2023-12-30 11:36] LABS: Glucose - Point of Care 147 mg/dl (70-99)
[2023-12-30 15:35] VITALS: BP 121/65
[2023-12-30] MEDS: LIPITOR 40 MG TUBE (17:25)
[2023-12-30 17:36] LABS: Glucose - Point of Care 129 mg/dl (70-99)
[2023-12-30 19:03] VITALS: BP 118/64
== END 2023-12-30 19:53 | DRG 70 ==
LOC: 2 NORTH 19:52
PROVIDERS: Internal Medicine; ADMITTING PHYSICIAN Student in an Organized Health Care Education/Training Program; ATTENDING PHYSICIAN Hospitalist
DX: G93.41 Metabolic encephalopathy (principal); E43 Unspecified severe protein-calorie malnutrition; J69.0 Pneumonitis due to inhalation of food and vomit; U07.1 COVID-19; Z68.1 Body mass index [BMI] 19.9 or less, adult; E87.0 Hyperosmolality and hypernatremia; F03.918 Unspecified dementia, unspecified severity, with other behavioral disturbance; Z51.5 Encounter for palliative care; Z66 Do not resuscitate; Z75.1 Person awaiting admission to adequate facility elsewhere; I10 Essential (primary) hypertension
CPT/HCPCS: 49465; 70450; 71045; 74230; 80048; 80053; 82962; 83036; 83735; 85025; 85027; 85610; 87070; 92526; 92610; 92611; 97110; 97116; 97163; 97167; 97530; 97535; J2358

== ENCOUNTER 2024-04-20 11:52 | Outpatient (RCR) | payer MEDICARE, BC, SELFPAY | END 2024-04-20 23:59 | disposition home or self-care (01) | LOC: RST 11:52 | PROVIDERS: ATTENDING PHYSICIAN Internal Medicine Gastroenterology; FAMILY PHYSICIAN Internal Medicine | DX: R13.12 Dysphagia, oropharyngeal phase (principal); U09.9 Post COVID-19 condition, unspecified | CPT/HCPCS: 92526; 92610 ==

== ENCOUNTER → 2024-04-23 09:56 | Outpatient (REF) | payer MEDICARE, BC, SELFPAY | LOC: RAD 09:56 | PROVIDERS: ATTENDING PHYSICIAN Internal Medicine Gastroenterology; FAMILY PHYSICIAN Internal Medicine | DX: R13.19 Other dysphagia (principal) | CPT/HCPCS: 74230; 92611 ==

== ENCOUNTER 2024-05-18 10:57 | Outpatient (RCR) | payer MEDICARE, BC, SELFPAY | END 2024-05-18 23:59 | disposition home or self-care (01) | LOC: RST 10:57 | PROVIDERS: ATTENDING PHYSICIAN Internal Medicine Gastroenterology; FAMILY PHYSICIAN Internal Medicine | DX: R13.12 Dysphagia, oropharyngeal phase (principal); U09.9 Post COVID-19 condition, unspecified; R41.89 Other symptoms and signs involving cognitive functions and awareness; Z93.1 Gastrostomy status | CPT/HCPCS: 92526 ==

== ENCOUNTER 2024-05-20 11:46 | Emergency (ER) | payer MEDICARE, BC, SELFPAY ==
[2024-05-20 11:49] VITALS: BP 108/81
[2024-05-20 11:51] VITALS: BP 108/81
[2024-05-20 11:57] VITALS: BP 99/49
[2024-05-20 11:59] VITALS: BMI 21.6
[2024-05-20 12:00] VITALS: BP 99/49
[2024-05-20 12:26] LABS: % Basophils 0.3 % (0-2); % Eosinophils 0.1 % (0-6); % Immature Granulocytes 0.4 % (0-0.5); % Lymphocytes 13.9 % (20.5-51.1); % Monocytes 8.6 % (1.7-9.3); % Neutrophils 76.7 % (42.2-75.2); Absolute Lymphocytes 1.1 10^3/uL (1.2-3.4); Absolute Monocytes 0.7 10^3/uL (0.1-0.6); Absolute Neutrophils 5.9 10^3/uL (1.4-6.5); Hematocrit 35.1 % (39.0-52.0); Hemoglobin 11.5 g/dL (13.0-18.0); Mean Corp Hgb Conc. 32.8 g/dL (33.0-37.0); Mean Corpuscular Hgb 33.4 pg (27.0-31.0); Mean Platelet Volume 10.8 fL (7.4-10.4); Nucleated Red Blood Cells % 0 % (-); Platelet Count 165 10^3/uL (130-400); Red Blood Cell Count 3.44 10^6/uL (4.70-6.10); Red Cell Dist. Width 13.9 % (11.5-14.5); White Blood Cell Count 7.7 10^3/uL (4.8-10.8)
[2024-05-20 12:37] LABS: Lactic Acid 1.6 mmol/L (0.7-2.0)
[2024-05-20 12:38] LABS: ALT (SGPT) 29 U/L (0-50); AST (SGOT) 30 U/L (17-59); Albumin 3.6 g/dl (3.5-5.0); Alkaline Phosphatase 70 U/L (38-126); Blood Urea Nitrogen 21 mg/dl (9-20); Calcium 8.7 mg/dl (8.4-10.2); Carbon Dioxide 25 mmol/L (22-30); Chloride 99 mmol/L (98-107); Estimated Creatinine Clearance 73 ml/min; Glucose 186 mg/dl (70-99); Sodium 133 mmol/L (135-145); Total Protein 5.6 g/dl (6.3-8.2); Urine Albumin 2+ (Neg - Trace); Urine Bilirubin Negative (Negative); Urine Character Clear (Clear); Urine Color Yellow; Urine Glucose Negative (Negative); Urine Ketone Negative (Negative); Urine Leukocyte Negative (Negative); Urine Nitrite Negative (Negative); Urine Occult Blood 2+ (Negative); Urine Urobilinogen Negative (Neg - 1+); eGFR > 60.00
[2024-05-20 12:47] LABS: COVID-19 Antigen Positive (Negative)
[2024-05-20] MEDS: NSS 1000 IV (13:43)
[2024-05-20 14:19] LABS: Urine Mucus Many
[2024-05-20 14:21] LABS: Urine Amorphous Seen; Urine Squamous Cell 0-2 /LPF (Few)
[2024-05-20 14:22] LABS: Urine White Cell 0-2 /HPF (0-5)
[2024-05-20 14:42] VITALS: BP 96/57
[2024-05-20] MEDS: TYLENOL 975 MG TUBE (14:43)
--- NOTE | 2024-05-20 14:44 | ED.GENMED ---
History of Present Illness
General
Chief Complaint: Change in Mental Status
Source: patient, records and spouse
Exam Limitations: none
Time Seen by Provider: 05/20/24 12:13
History of Present Illness
History of Present Illness:
Patient is a 78-year-old female with past medical history of mild cognitive impairment, TIA, hyperlipidemia, diabetes, COVID encephalopathy, aspiration pneumonia complicated by bacteremia, PEG tube in place, who presents to the emergency department
accompanied by his from home for evaluation of cough and fever. reports the patient was seen at an outside hospital yesterday for a lesion to his suprapubic region. He was diagnosed with folliculitis/abscess and the lesion was incised
and drained and the patient was started on cephalexin. reports that overnight last night, the patient developed a fever with a Tmax of 103.5 as well as a wet cough. Patient denies headache, nasal congestion, rhinorrhea, throat pain, chest
pain, shortness of breath, abdominal pain, nausea, vomiting, change in his bowel habits. reports that the patient has been working with speech therapy and he was darted on oral diet 3 to 4 weeks ago. is concerned for the possibility of
aspiration pneumonia. denies any known sick contacts. reports that she did give Tylenol earlier this morning.
Past History
Past History
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
stenosis 65% in 2018, proximal left vertebral artery occlusion)
ED Past Surgical History: Orthopedic (left wrist surgery, left foot surgery) and Other (left carotid endarterectomy, prostatectomy)
Social History
Tobacco: Former smoker
Alcohol: Occasional
Personal: Partner
Living: with family
Employment: Other (continues to work)
Family History
Family History: Other (reviewed and noncontributory)
Review of Systems
Review of Systems
All Other Systems: Not applicable
Constitutional: Reports fever
EENT: Reports no symptoms
Respiratory: Reports cough; Denies trouble breathing
Cardiac: Reports no symptoms; Denies chest pain
ABD/GI: Reports no symptoms; Denies abdominal pain or vomiting
: Reports no symptoms; Denies dysuria
Musculoskeletal: Reports no symptoms
Skin: Reports no symptoms
Neurological: Reports weakness
Endocrine: Reports no symptoms
Hematologic/Lymphatic: Reports no symptoms
Psychiatric: Reports no symptoms
Phy Exam
General Physical Exam
General Presentation: well appearing and no apparent distress
General Skin: warm and dry
General Habitus: normal
General Mental: alert
General Hydration: appears well hydrated
ENT Exam
ENT Exam: EOMI, pharynx normal, neck supple and normocephalic
Eye Exam
Eye Exam: PERRL, cornea clear and conjunctiva normal
Cardiovascular Exam
Cardiovascular Exam: regular rate/rhythm, no edema, no murmur and normal peripheral pulses
Pulmonary Exam
Pulmonary Exam: lungs clear, no respiratory distress, no rales, no crackles, no rhonchi, no stridor, no wheezing, no cough and other (some gurgling upper airway sounds)
Gastrointestinal Exam
Gastrointestinal Exam: normal bowel sounds, non tender, soft, no organomegaly, no pulsatile mass and non distended
Neurological Exam
Neurological Exam: alert, oriented x3, no motor deficits and speech normal
Musculoskeletal Exam
Musculoskeletal Exam: full ROM and no edema
Skin Exam
Skin Exam: normal color, warm/dry, no rash, no petechia and other (lesion to the suprapubic region which is mildly indurated, no fluctuance, no active drainage, no surrounding erythema)
Psychiatric Exam
Psychiatric Exam: normal mood/affect
Course
Orders/Labs/Results
Orders:
Orders
05/20/24 11:57
Electrocardiogram (*1) Urgent
Reason for Study: Other
Other Reason for Exam: Possible Sepsis
Cardiac Monitoring- Treatment ONCE
IV Insert/Care/Rem.- Treatment PRN
Straight cath- Treatment ONCE
O2 Therapy [RESP] Urgent
Titrate/Wean O2 to maintain O2 sat greater than (%): 93
Special Instructions: TO MAINTAIN CONTINUOUS O2 SATS > OR = 93%
Pulse Ox/cont/shift [RESP] Urgent
Quantity: 1
Special Instructions: CONTINUOUS
05/20/24 11:58
EKG- Treatment ONCE
CR Chest - 2 Views Urgent
Comment:
Reason For Exam: suspected infection
05/20/24 12:13
COVID-19 Antigen Urgent
Source: Nasal Swab
Complete Blood Count/With Diff Urgent
Comprehensive Metabolic Panel Urgent
Lactic Acid Q4H
Comment: ON ICE, CANCEL 2ND ORDER IF FIRST LACTIC ACID LEVEL <2
Urinalysis Reflex To Culture Urgent
Date Specimen was Collected: 05/20/24
Time Specimen was Collected: 11:58
Urine Microscopic Reflex Cult Urgent
Influenza A+B Rapid Molecular Urgent
HE Source: Nasal Swab
Specimen Description:
05/20/24 13:03
0.9% Sodium Chloride 1000 ml [Nss] 1,000 ml IV BOLUS
05/20/24 13:53
Acetaminophen [Tylenol] 975 mg TUBE NOW STA
Abnormal Lab Results
05/20/24
12:13
RBC 3.44 L 10^6/uL
(4.70-6.10)
Hgb 11.5 L g/dL
(13.0-18.0)
Hct 35.1 L %
(39.0-52.0)
MCV 102.0 H fL
(80.0-94.0)
MCH 33.4 H pg
(27.0-31.0)
MCHC 32.8 L g/dL
(33.0-37.0)
MPV 10.8 H fL
(7.4-10.4)
Absolute Lymphs (auto) 1.1 L 10^3/uL
(1.2-3.4)
Absolute Monos (auto) 0.7 H 10^3/uL
(0.1-0.6)
Neutrophils % 76.7 H %
(42.2-75.2)
Lymphocytes % 13.9 L %
(20.5-51.1)
Sodium 133 L mmol/L
(135-145)
BUN 21 H mg/dl
(9-20)
Glucose 186 H mg/dl
(70-99)
Total Protein 5.6 L g/dl
(6.3-8.2)
Ur Occult Blood Reflex 2+ A
(Negative)
Urine RBC 3-6 A /HPF
(0-2)
Urine Albumin (Reflex) 2+ A
(Neg - Trace)
SARS-CoV-2 Antigen Positive A
(Negative)
05/20/24 12:13
05/20/24 12:13
Vital Signs
Initial and Last Documented VS:
Initial Vital Signs
Temp Pulse Resp BP Pulse Ox
98.6 F 63 16 108/81 98
05/20/24 11:49 05/20/24 11:49 05/20/24 11:49 05/20/24 11:49 05/20/24 11:49
Last Documented Vital Signs
Temp Pulse Resp BP Pulse Ox
98.2 F 57 15 117/48 99
05/20/24 16:30 05/20/24 15:30 05/20/24 15:15 05/20/24 15:00 05/20/24 14:45
*Critical Care Note
Total Time (30-74mins, 75-104mins- exclusive of procedures): Not Applicable
Update Note
Update Note:
Patient is a 78-year-old male with past medical history of COVID encephalopathy, PEG tube in place, mild cognitive impairment, presents to the emergency department accompanied by his for evaluation of fever and cough. Patient was seen at an
outside hospital yesterday for folliculitis/abscess and had a lesion that was incised and drained and the patient was started on oral antibiotics. On arrival, patient's vital signs are stable, he is febrile. On exam, patient is well-appearing, he
is in no acute distress, he does have some gurgling upper airway sounds but his lungs are clear to auscultation bilaterally, he has a benign abdomen, lesion to the suprapubic region appears to be healing appropriately, there is no surrounding
erythema, no streaking erythema, no persistent fluctuance. Labs were obtained and are notable for a moderate hyperglycemia without evidence of DKA, labs are otherwise nonactionable. Chest x-ray demonstrates no acute disease process. Flu swab is
negative. However, COVID-19 swab is positive. Patient and his made aware. Patient and his would prefer that the patient be discharged home which I feel is appropriate. Patient was able to stand and ambulate with a steady gait.
reports that he she feels comfortable taking the patient home. Will initiate a course of Paxlovid however the patient was advised to hold his atorvastatin while he is taking the Paxlovid. Patient and his are educated on supportive care
measures, along with strict return precautions. They expressed understanding of the plan and agreed.
ED Attending Note
-
Portions of this chart may have been created with voice recognition software.� Occasional wrong word or��sound alike� substitutions may have occurred due to the inherent limitations of voice recognition software.
Discharge Plan
Departure
Patient Disposition: Home (Routine Discharge)
Date of Disposition: 05/20/24
Time of Disposition: 16:03
Patient with high blood pressure during this ER visit?: No
Condition: Good
Covid-19: Confirmed COVID-19
Discharge Problem:
COVID-19
Instructions: COVID-19 - ED discharge instructions
Prescriptions:
New
Paxlovid 300 mg (150 mg x 2)-100 mg tablets,dose pack
1 ea PO PER PKG DIR Qty: 30 0RF
Rx Instructions:
1 ea orally;
No Action
atorvastatin 40 mg Tablet
40 mg feeding tube QPM 30 Days Qty: 0 0RF
thiamine HCl (vitamin B1) 100 mg Tablet
100 mg feeding tube DAILY 20 Days Qty: 0 0RF
famotidine 20 mg Tablet
20 mg feeding tube DAILY 30 Days Qty: 0 0RF
aspirin 81 mg Tablet,Chewable
81 mg feeding tube DAILY 30 Days Qty: 0 0RF
cholecalciferol (vitamin D3) [Pediatric D-Lara] 10 mcg/mL (400 unit/mL) Drops
10 mcg feeding tube DAILY 30 Days Qty: 0 0RF
acetaminophen 650 mg/20.3 mL Solution
650 mg feeding tube Q4HPRN PRN (Reason: mild pain/CRUZ/temp> 100.4F) 20 Days Qty: 0 0RF
metoprolol tartrate 50 mg tablet
50 mg feeding tube 1XD
Referrals:
Favian Sethi DO [Family Provider] -
Activity Restrictions/Additional Instructions:
You were seen in the emergency department for evaluation of fever and cough. While you were in the emergency department, you tested positive for COVID-19. The remainder of your labs and chest x-ray demonstrate no abnormalities. You are being
started on an antiviral medication to help treat your paxlovid. Please take it as prescribed, but do not take your atorvastatin while you are on it. Please get plenty of rest and drink plenty of fluids. You may continue to take Tylenol 650mg
every 4-6 hours as needed for fever or pain, not to exceed 3000mg in 24 hours. Please return to the emergency department for weakness, difficulty walking, chest pain, shortness of breath or difficulty breathing, abdominal pain, vomiting, or for any
other worsening or concerning symptoms.
Interventions
Interventions:
*Risk Screen - Suicide Last Done: 05/20/24 11:54
*General Assessment Last Done: 05/20/24 11:55
*Neglect/Abuse Screening Last Done: 05/20/24 11:55
ED- Fall Risk Assessment Last Done: 05/20/24 12:29
*ED COVID-19 Vaccine History Last Done: 05/20/24 11:59
*Nursing Disposition Last Done: 05/20/24 16:30
ED- Pulmonary Assessment Last Done: 05/20/24 12:29
ED-Psychological Assessment Last Done: 05/20/24 12:00
ED- Neurological Assessment Last Done: 05/20/24 12:29
ED- Cardiac Assessment Last Done: 05/20/24 12:29
Discharge Date and Time
Discharge Date/Time: 05/20/24 16:30
Print Language: MACEDONIAN
[2024-05-20 15:00] VITALS: BP 117/48
== END 2024-05-20 16:30 | disposition home or self-care (01) ==
LOC: EMR 11:46
PROVIDERS: EMERGENCY PHYSICIAN Emergency Medicine; FAMILY PHYSICIAN Internal Medicine
DX: U07.1 COVID-19 (principal); E78.00 Pure hypercholesterolemia, unspecified; E11.65 Type 2 diabetes mellitus with hyperglycemia; I10 Essential (primary) hypertension; Z86.73 Personal history of transient ischemic attack (TIA), and cerebral infarction without residual deficits; Z87.891 Personal history of nicotine dependence; Z93.1 Gastrostomy status; G31.84 Mild cognitive impairment of uncertain or unknown etiology
CPT/HCPCS: 99285; 96360; 71046; 80053; 81003; 81015; 83605; 85025; 87502; 87811; 93005

== ENCOUNTER 2024-06-15 12:01 | Outpatient (RCR) | payer MEDICARE, BC, SELFPAY | END 2024-06-15 23:59 | disposition home or self-care (01) | LOC: RST 12:01 | PROVIDERS: ATTENDING PHYSICIAN Internal Medicine Gastroenterology; FAMILY PHYSICIAN Internal Medicine | DX: R13.12 Dysphagia, oropharyngeal phase (principal); U09.9 Post COVID-19 condition, unspecified; R41.89 Other symptoms and signs involving cognitive functions and awareness; Z93.1 Gastrostomy status | CPT/HCPCS: 92526 ==

== ENCOUNTER 2024-06-22 18:31 | Inpatient (IN) | payer MEDICARE, BC, SELFPAY ==
[2024-06-22] VITALS (8 sets, daily range): BP systolic 96–151; BP diastolic 48–65; BMI 22.7; BMI 21.3
--- NOTE | 2024-06-22 15:03 | ED.GENMED ---
History of Present Illness
General
Chief Complaint: Change in Mental Status
Source: patient
Exam Limitations: none
Time Seen by Provider: 06/22/24 15:00
Nursing documentation reviewed up to this point in time: agreed with
History of Present Illness
History of Present Illness:
78-year-old male presents emergency department due to confusion, fever. His last saw him this morning, once he came home at about 130, he was acting confused.
Past History
Past History
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
stenosis 65% in 2018, proximal left vertebral artery occlusion)
ED Past Surgical History: Orthopedic (left wrist surgery, left foot surgery) and Other (left carotid endarterectomy, prostatectomy)
Social History
Tobacco: Former smoker
Alcohol: Occasional
Personal: Partner
Living: with family
Employment: Other (continues to work)
Family History
Family History: Other (reviewed and noncontributory)
Review of Systems
Review of Systems
Allergies reviewed?: Yes
Unable to obtain full review of systems at this time due to: due to acuity
All Other Systems: Not applicable
Constitutional: Reports fever
Phy Exam
Physical Exam
Physical Exam:
Physical Exam
General: Temperature 99.7
Neck: supple. no meningeal signs. normal posterior pharynx
Heart: s1/s2 regular rate and rhythm, no murmur. equal radial
pulses.
HEENT: Pupils equal round reactive to light, EOMI
Lungs: no acute respiratory distress. clear bilaterally
Abdomen: normal bowel sounds. not tender. no CVAT
Neuro: alert and oriented to person and place. no focal neurological deficits cranial nerves II through XII intact
Skin: no rash
Psychiatric: well kept. interactive and cooperative
Extremities: no edema. no calf tenderness. negative homans. good distal pulses
Sepsis
Sepsis Screening
Sepsis Assessment: Sepsis Ruled Out
Sepsis Screen
Sepsis Screen: Sepsis Ruled Out
Date: 06/22/24
Time: 20:03
Course
Orders/Labs/Results
Orders:
Orders
06/22/24 15:01
Electrocardiogram (*1) Urgent
Reason for Study: Other
Other Reason for Exam: sepsis
Cardiac Monitoring- Treatment ONCE
EKG- Treatment ONCE
IV Insert/Care/Rem.- Treatment PRN
Straight cath- Treatment ONCE
CR Chest - 2 Views Urgent
Comment:
Reason For Exam: fever
Pulse Ox/cont/shift [RESP] Urgent
Quantity: 1
06/22/24 15:02
CT Head W/o Iv Contrast Urgent
Comment:
Reason For Exam: altered mental status
06/22/24 15:04
COVID-19 Antigen Urgent
Source: Nasal Swab
Complete Blood Count/With Diff Urgent
Comprehensive Metabolic Panel Urgent
Lactic Acid Q4H
Comment: CANCEL 2nd LACTIC ACID IF 1st LACTIC ACID IS LESS THAN 2
Troponin I Urgent
Blood Culture Q30M
HE Source: Blood/Venous
Specimen Description:
Blood Culture Q30M
HE Source: Blood/Venous
Specimen Description:
Influenza A+B Rapid Molecular Urgent
HE Source: Nasal Swab
Specimen Description:
06/22/24 15:07
Urinalysis Reflex To Culture Urgent
Date Specimen was Collected: 06/22/24
Time Specimen was Collected: 15:06
Urine Microscopic Reflex Cult Urgent
06/22/24 16:34
Acetaminophen [Tylenol] 650 mg PO NOW STA
06/22/24 18:21
Admit/Transfer Patient As Directed
Co-Sign Provider:
Level of Care: Inpatient admission
Assign to:: Medical/Surgical
Physician / Group: Hospitalist
Diagnosis: Fever
Reason for Hospitalization: .
Expected length of stay greater than two midnights?: Yes
ELOS- Estimated Length of Stay in days: 3
I certify the patient meets the requirements for IP care: Yes
PRN Pain Medication Management As Directed
May give lesser potent ordered pain med per pt: Yes
preference::
Protocol:: Medication orders for pain may be administered in a
manner that supports deferring to patient preference
when the pt is:
- Requesting an ordered lesser potent pain medication.
Least to most potent pain medications are defined
as: acetaminophen < NSAID < tramadol < opioids
(morphine, oxycodone, hydromorphone).
- Requesting a lesser dose of the same medication IF
ORDERED.
- Requesting a less intrusive route of administration
if both routes are prescribed by the provider (PO <
IV).
Abnormal Lab Results
06/22/24 06/22/24
15:04 15:07
WBC 10.9 H 10^3/uL
(4.8-10.8)
RBC 3.58 L 10^6/uL
(4.70-6.10)
Hgb 12.0 L g/dL
(13.0-18.0)
Hct 36.4 L %
(39.0-52.0)
MCV 101.7 H fL
(80.0-94.0)
MCH 33.5 H pg
(27.0-31.0)
MPV 10.7 H fL
(7.4-10.4)
Absolute Neuts (auto) 9.0 H 10^3/uL
(1.4-6.5)
Absolute Lymphs (auto) 0.9 L 10^3/uL
(1.2-3.4)
Absolute Monos (auto) 0.9 H 10^3/uL
(0.1-0.6)
Neutrophils % 81.7 H %
(42.2-75.2)
Lymphocytes % 8.6 L %
(20.5-51.1)
BUN 26 H mg/dl
(9-20)
Glucose 132 H mg/dl
(70-99)
AST 66 H U/L
(17-59)
ALT 76 H U/L
(0-50)
Total Protein 5.9 L g/dl
(6.3-8.2)
Ur Occult Blood Reflex 2+ A
(Negative)
Urine RBC 7-10 A /HPF
(0-2)
Urine Bacteria (Reflex) Few A
(Negative)
Urine Albumin (Reflex) 2+ A
(Neg - Trace)
06/22/24 15:04
06/22/24 15:04
Vital Signs
Initial and Last Documented VS:
Initial Vital Signs
Temp Pulse Resp BP Pulse Ox
101 F H 76 19 140/51 97
06/22/24 15:00 06/22/24 15:00 06/22/24 15:00 06/22/24 15:00 06/22/24 15:00
Last Documented Vital Signs
Temp Pulse Resp BP Pulse Ox
101 F H 61 17 110/53 97
06/22/24 15:00 06/22/24 18:45 06/22/24 18:45 06/22/24 18:00 06/22/24 18:00
MDM/Problems Addressed
Differential Diagnosis Includes:
Pneumonia, fever
MDM/Problems Addressed:
78-year-old male with fever, altered mental status, likely toxic metabolic encephalopathy. Admit to hospitalist for further evaluation.
Chronic conditions affecting care: Neurological disorder (Dementia)
Acute Exacerbation and/or Progression of Chronic Illness: Neurological disorder (Dementia)
*Radiology
Radiology exam reviewed: preliminary read by ED provider (Chest x-ray no acute finding) and radiology read reviewed (CT head no acute findings)
*Pulse Oximetry
Patient hypoxic: no
*EKG
Interpreted by ED Provider?: Yes
EKG Intrepretation Date: 06/22/24
EKG Intrepretation Time: 15:05
Interpretation: abnormal
Comparison EKG: no changes
Heart Rate: 72
Rate: normal
Rhythm: sinus
[place]: normal axis
Interval: first degree heart block
QRS Pattern: normal QRS
Ischemia: no ischemia
*Bowl Attendant Interpretation
Rate: normal
Interpretation: normal
Heart Rate: 70
Rhythm: sinus
*Critical Care Note
Total Time (30-74mins, 75-104mins- exclusive of procedures): Not Applicable
Data Reviewed
Review of Other/Old Records Reveals: Labs (prior wbc 7.7 on 05/20/24)
Source: records
Patient Management
Social determinants of health affecting care: Living situation and Strong social support
Discussion with other providers: Hospitalist
Escalation/DeEscalation of care consider admission/obs:
admit indicated
ED Attending Note
-
Portions of this chart may have been created with voice recognition software.� Occasional wrong word or��sound alike� substitutions may have occurred due to the inherent limitations of voice recognition software.
Discharge Plan
Departure
Patient Disposition: Admit
Date of Disposition: 06/22/24
Time of Disposition: 17:55
Admit to: Telemetry
Presentation/result/management discussed w/ accepting MD/DO: Hospitalist
Patient with high blood pressure during this ER visit?: Yes
Condition: Fair
Discharge Problem:
Fever, Acute alteration in mental status
Interventions
Interventions:
*Risk Screen - Suicide Last Done: 06/22/24 15:00
*General Assessment Last Done: 06/22/24 15:00
*Neglect/Abuse Screening Last Done: 06/22/24 15:00
ED- Pulmonary Assessment Last Done: 06/22/24 15:27
ED- Neurological Assessment Last Done: 06/22/24 15:27
ED- Cardiac Assessment Last Done: 06/22/24 15:27
ED Swallowing Screen Last Done: 06/22/24 15:27
[2024-06-22 15:13] LABS: % Basophils 0.3 % (0-2); % Eosinophils 0.4 % (0-6); % Immature Granulocytes 0.4 % (0-0.5); % Lymphocytes 8.6 % (20.5-51.1); % Monocytes 8.6 % (1.7-9.3); % Neutrophils 81.7 % (42.2-75.2); Absolute Lymphocytes 0.9 10^3/uL (1.2-3.4); Absolute Monocytes 0.9 10^3/uL (0.1-0.6); Hematocrit 36.4 % (39.0-52.0); Mean Corpuscular Hgb 33.5 pg (27.0-31.0); Mean Corpuscular Volume 101.7 fL (80.0-94.0); Mean Platelet Volume 10.7 fL (7.4-10.4); Nucleated Red Blood Cells % 0 % (-); Platelet Count 220 10^3/uL (130-400); Red Blood Cell Count 3.58 10^6/uL (4.70-6.10); Red Cell Dist. Width 12.9 % (11.5-14.5); White Blood Cell Count 10.9 10^3/uL (4.8-10.8)
[2024-06-22 15:23] LABS: Urine Albumin 2+ (Neg - Trace); Urine Bilirubin Negative (Negative); Urine Character Clear (Clear); Urine Color Yellow; Urine Glucose Negative (Negative); Urine Ketone Negative (Negative); Urine Leukocyte Negative (Negative); Urine Nitrite Negative (Negative); Urine Occult Blood 2+ (Negative); Urine Specific Gravity 1.015 (<1.030); Urine Urobilinogen 1+ (Neg - 1+)
[2024-06-22 15:30] LABS: ALT (SGPT) 76 U/L (0-50); AST (SGOT) 66 U/L (17-59); Albumin 3.8 g/dl (3.5-5.0); Alkaline Phosphatase 96 U/L (38-126); Blood Urea Nitrogen 26 mg/dl (9-20); Calcium 8.8 mg/dl (8.4-10.2); Carbon Dioxide 26 mmol/L (22-30); Chloride 102 mmol/L (98-107); Estimated Creatinine Clearance 77 ml/min; Glucose 132 mg/dl (70-99); Potassium 4.8 mmol/L (3.5-5.1); Sodium 136 mmol/L (135-145); Total Bilirubin 0.7 mg/dl (0.2-1.3); Total Protein 5.9 g/dl (6.3-8.2); eGFR > 60.00
[2024-06-22 15:39] LABS: COVID-19 Antigen Negative (Negative)
[2024-06-22 15:40] LABS: Troponin I < 0.012 ng/ml
[2024-06-22 15:47] LABS: Urine Bacteria Few (Negative); Urine White Cell 0-2 /HPF (0-5)
[2024-06-22 16:13] LABS: Lactic Acid 1.6 mmol/L (0.7-2.0)
[2024-06-22] MEDS: TYLENOL 650 MG PO (16:57)
--- NOTE | 2024-06-22 18:27 | HPS.HSE ---
Family Physician
-
Family Physician: Favian Sethi
Chief Complaint
-
Fever
History of Present Illness
78 years old male came from home. History taken from . reported the patient was at his normal baseline and did his usual daily activity. She went out and when she came back he was acting confused and she checked his temperature was
101.6. No history of recent illness. No respiratory or GI symptoms. No headache. Patient has underlying dementia and currently denying any symptoms. In the ER, he had leukocytosis and temperature around 101.
Medical History
Past Medical History
Past Medical History: Reports Other (Dementia, history of prolonged encephalopathy, hyperlipidemia, first-degree heart block, recurrent aspiration pneumonia, dysphagia with feeding tube, hypoxia)
Past Surgical History: Reports Other (No recent major surgery )
Social History
Unable to obtain full social history at this time due to: Dementia
Personal:
Living: With Family
Family History
Family History: Not pertinent
Allergies / Home Medications
Allergies reflects when Allergies were last updated in [facility].
Home Medications with original date entered in [facility]
Allergy/Medication List:
Allergies
Allergy/AdvReac Type Severity Reaction Status Date / Time
Sulfa (Sulfonamide Allergy Unknown Verified 08/28/18 06:05
Antibiotics)
Home Medications
aspirin 81 mg chewable tablet 81 mg feeding tube DAILY 30 days #0 tabs 12/28/23
atorvastatin 40 mg tablet 40 mg feeding tube QPM 30 days #0 tabs 12/28/23
famotidine 20 mg tablet 20 mg feeding tube DAILY 30 days #0 tabs 12/28/23
metoprolol tartrate 50 mg tablet 50 mg feeding tube DAILY 05/20/24
acetaminophen 325 mg tablet 650 mg feeding tube Q6HPRN PRN mild pain/fever 06/22/24
cholecalciferol (vitamin D3) 10 mcg/mL (400 unit/mL) oral drops (Pediatric D-Lara) 10 mcg feeding tube NOON 06/22/24
thiamine HCl (vitamin B1) 100 mg tablet 100 mg feeding tube QPM 06/22/24
Review of Systems
-
Unable to obtain full review of systems at this time due to: Dementia
Physical Exam
Vital Signs
Vital Signs
Temp Pulse Resp BP Pulse Ox
101 F H 71 16 140/51 98
06/22/24 15:00 06/22/24 15:15 06/22/24 15:15 06/22/24 15:00 06/22/24 15:15
Physical Exam
General: No Apparent Distress and Comfortable
HEENT: Moist mucous membranes, Atraumatic, Nose Appears Normal, Ears Appear Normal and Other (poor dentition )
Cardiac: S1/S2 and Regular Rhythm
GI: Soft, Non Tender, Non Distended, Normal Bowel Sounds and Peg Tube
Genito-urinary: No Ford
Musculoskeletal: No Clubbing, No Cyanosis and No Edema
Skin: No Jaundice
Neuro: Awake, Oriented and Nonfocal/grossly intact
Psych: Calm and Apparent Dementia
Laboratory Results
-
06/22/24 15:04
06/22/24 15:04
Laboratory Results
Lactic Acid Cancelled 06/22/24 19:15
Total Bilirubin 0.7 mg/dl (0.2-1.3) 06/22/24 15:04
AST 66 U/L (17-59) H 06/22/24 15:04
ALT 76 U/L (0-50) H 06/22/24 15:04
Alkaline Phosphatase 96 U/L (38-126) 06/22/24 15:04
Troponin I < 0.012 ng/ml 06/22/24 15:04
Impression/Plan
-
78 years old male was brought in by his for confusion and fever
# Altered mental status, suspect toxic metabolic encephalopathy. History of prolonged encephalopathy that required to 3 months hospital stay with referral to tertiary care center
CT head no acute finding
Known to have cognitive impairment/ dementia
Nonfocal motor exam
Cognitive, no agitation, seems forgetful but at baseline
Currently, patient is forgetful
# Fever
Suspect recurrent aspiration pneumonia
Lack of respiratory symptoms including shortness of breath or cough. Patient is poor historian. Chest x-ray not very conclusive.
Negative lactic acid
No leukocytosis
Negative COVID and influenza screen
Admit the patient to the hospital
Order CAT scan of the chest without contrast
Normal abdominal examination, no signs of cellulitis. PEG tube site is not tender or erythematous. Urine not very suggestive of UTI
Empiric Zosyn IV
Speech evaluation
# History of dysphagia
Per , his swallowing improving and currently eating 1 or 2 meals a day of regular food
He still gets total of 6 cans of Jevity daily
# Mild elevation in liver enzymes. No abdominal pain. Monitor
#History of Urinary retention:
Hx urethral stricture monitor for retention
# History of primary hypertension/prediabetes
# History of CVA
# History of prostate cancer
# History of peripheral vascular disease with carotid stenosis status post left CEA
Total time spent to see the patient, examine the patient, review data and lab results, discuss treatment plan with patient, nursing staff, ER doctor around 75 minutes. �
[2024-06-23] MEDS: LOPRESSOR TUBE (01:18)
[2024-06-23] MEDS: ZOSYN IV (04:26)
[2024-06-23] MEDS: ZOSYN 50 IV ×2 (04:27→10:19)
--- NOTE | 2024-06-23 04:31 | PTCARENOTE ---
Received pt from ED, confused, VSS. Spoke with regarding Tube feedings- 4 bolus/day (2 cans per feeding-8oz). We do not carry cans- pt also made NPO for possible aspiration pna. Consulted speech- until we can get correct feedings/rates
[2024-06-23 07:05] VITALS: BP 123/42
[2024-06-23 08:00] LABS: Hematocrit 36.6 % (39.0-52.0); Hemoglobin 12.2 g/dL (13.0-18.0); Mean Corp Hgb Conc. 33.3 g/dL (33.0-37.0); Mean Corpuscular Hgb 33.1 pg (27.0-31.0); Mean Corpuscular Volume 99.2 fL (80.0-94.0); Mean Platelet Volume 10.9 fL (7.4-10.4); Platelet Count 181 10^3/uL (130-400); Red Blood Cell Count 3.69 10^6/uL (4.70-6.10); Red Cell Dist. Width 12.8 % (11.5-14.5); White Blood Cell Count 6.9 10^3/uL (4.8-10.8)
[2024-06-23 08:05] LABS: Blood Urea Nitrogen 16 mg/dl (9-20); Calcium 8.9 mg/dl (8.4-10.2); Carbon Dioxide 28 mmol/L (22-30); Chloride 104 mmol/L (98-107); Estimated Creatinine Clearance 85 ml/min; Glucose 111 mg/dl (70-99); Potassium 4.4 mmol/L (3.5-5.1); Sodium 138 mmol/L (135-145); eGFR > 60.00
[2024-06-23] MEDS: LOPRESSOR 50 MG TUBE (08:31)
[2024-06-23] MEDS: LOW STRENGTH ASPIRIN 81 MG TUBE (08:32)
[2024-06-23] MEDS: PEPCID 20 MG TUBE (08:32)
[2024-06-23] MEDS: FLUSH (NSS) 1 FLUSH IV (10:19)
--- NOTE | 2024-06-23 10:39 | PTOTSP ---
Speech Pathology Evaluation
78M with admission for confusion and fever. Chronic dysphagia hx with silent aspiration. On tube feeds at baseline. Supplements with PO for comfort per patient report/chart. Observed this date consuming soft and bite sized solids and thin liquids
with overt s/s of aspiration. Remains a chronic aspiration risk; however, pt continues to opt for PO despite risk.
Recommend:
1. NPO x tube feeds; however, pt continues to opt for PO for comfort despite understanding of aspiration risk
2. Meds crushed in puree
3. Safe swallowing strategies: small bites, single sips, slow rate
4. Pt is at his baseline with plans for d/c today; no further skilled ELECTRICAL WORKER service indicated at this time
[2024-06-23 11:40] VITALS: BP 138/57
--- NOTE | 2024-06-23 12:59 | W.PN.HOSP.TC ---
Today's Communication/Plan
-
Discharge
Assessment / Plan
Assessment / Plan
Physical Exam
General: No Apparent Distress and Comfortable
HEENT: Moist mucous membranes, Atraumatic, Nose Appears Normal, Ears Appear Normal and Other (poor dentition )
Cardiac: S1/S2 and Regular Rhythm
GI: Soft, Non Tender, Non Distended, Normal Bowel Sounds and Peg Tube
Genito-urinary: No Ford
Musculoskeletal: No Clubbing, No Cyanosis and No Edema
Skin: No Jaundice
Neuro: Awake, Oriented and Nonfocal/grossly intact
Psych: Calm and Apparent Dementia
78 years old male was brought in by his for confusion and fever
# Altered mental status, toxic metabolic encephalopathy. History of prolonged encephalopathy that required to 3 months hospital stay with referral to tertiary care center
CT head no acute finding
Known to have cognitive impairment/ dementia
Nonfocal motor exam
He became very agitated over night, upset and wants to go home. Safety nursing aid in room. Back to baseline once he was told he was discharged home and his came.
I had long discussion with the . Patient had improved significantly, no more fever. No hypoxia. No cough. Repeat blood work showed resolution of leukocytosis. In order to keep the patient in the hospital, we will have to medicate him and
that would be not advised due to his history of hospital/medication induced prolonged encephalopathy 3 months hospital stay with various complications. Patient had calmed down significantly upon promising him with discharge and after his came
to the hospital.
Per , patient is able to take tablets at home, will discharge him on Augmentin and to follow-up with his primary care doctor. A copy of CAT scan given to the to follow-up with his primary care physician and speech therapist. He
unfortunately will remain at risk of recurrent aspiration because of oropharyngeal dysphagia.
# Mild lingular pneumonia due to very likely aspiration
PNA seen on CT, was mild and did not show on x ray
Negative lactic acid
No leukocytosis
Negative COVID and influenza screen
He received 24 hours of IV Zosyn
I discussed with . She reported that he had video swallow and was allowed to have regular diet by his speech therapist. is fully aware that aspiration can happen infrequently and not be seen on video swallow. Patient was started and he
showed me the maneuver to cough after eating. Reinforced him instruction to take small bites and chew well and upright position.
# Mild elevation in liver enzymes. No abdominal pain. Monitor
#History of Urinary retention:
Hx urethral stricture
# History of primary hypertension/prediabetes
# History of CVA
# History of prostate cancer
# History of peripheral vascular disease with carotid stenosis status post left CEA
Total discharge time spent to see the patient, examine the patient, review data and lab results, discuss treatment plan with patient, nursing staff around 69 minutes. �
Anticipated Discharge: Today
Subjective/Interval History
-
Date of Service: June 23, 2024
Seen and examined
Very upset being in hospital
Wants to go home
Nurse aid in room with him
Objective Data
-
Labs:
Laboratory Results
06/23/24
06:31
WBC 6.9
Hgb 12.2 L
Hct 36.6 L
Plt Count 181
Sodium 138
Potassium 4.4
Chloride 104
Carbon Dioxide 28
BUN 16
Creatinine 0.6 L
Glucose 111 H
Calcium 8.9
Vital Signs:
Vital Signs
Temp Pulse Resp BP Pulse Ox
98.2 F 59 18 138/57 98
06/23/24 11:40 06/23/24 11:40 06/23/24 11:40 06/23/24 11:40 06/23/24 11:40
I&O
06/22/24 06/23/24 06/24/24
06:59 06:59 06:59
Intake Total 470 / 470
Output Total 275 / 275 275 / 275
Balance -275 / -275 195 / 195
--- NOTE | 2024-06-23 13:11 | W.DCSUMMARY ---
Discharge Summary
Discharge Data
Date of Admission: 06/22/24
Date of Discharge: 06/23/24
-
Pending Results: No
Hospital Course
78 years old male who was brought into the hospital by his . She noticed fever with increasing confusion at home. Patient did not have respiratory or gastrointestinal symptoms. He had negative COVID and influenza screen. Patient has history
of recurrent aspiration pneumonia. Chest radiography did not show infiltrate. Patient had leukocytosis. Negative lactic acid. He received intravenous Zosyn for presumed aspiration pneumonia. Chest scan showed mild lung acquired pneumonia.
Patient did not have cough or hypoxia or shortness of breath. Fever and leukocytosis resolved. Patient had declined to stay in the hospital but his talked to him and he stayed overnight. He became agitated argumentative and combative during
the night. program review director was in the room. Patient was not given any sedatives because of history of side effects. Due to significant clinical improvement, decision was made and after discussing with the and to the best interest of the
patient to be discharged home to continue on oral antibiotic. given a copy of the CAT scan to follow-up with his a primary care doctor and speech therapist. Patient has a prolonged history of dysphagia and had PEG tube but according to the
he was recently advanced to start a regular diet. She was informed that that could be a risk factor to have recurrent aspiration events. Patient became very calm and pleasant after discharging him. He agreed to do CAT scan and received
intravenous antibiotic, last dose in the hospital. He remained hemodynamically stable and was discharged in a stable condition.
Discharge Plan
-
Patient Disposition: Home (Routine Discharge)
Discharge Diagnosis/Procedures: fever, suspect aspiration related. Temperature and white blood cell count became normal.
Referrals:
Favian Sethi DO [Family Provider] -
Prescriptions:
New
amoxicillin-pot clavulanate 875-125 mg tablet
1 tab PO Q12H Qty: 10 0RF
Continued
famotidine 20 mg Tablet
20 mg feeding tube DAILY 30 Days Qty: 0 0RF
aspirin 81 mg Tablet,Chewable
81 mg feeding tube DAILY 30 Days Qty: 0 0RF
metoprolol tartrate 50 mg tablet
50 mg feeding tube DAILY
acetaminophen 325 mg Tablet
650 mg feeding tube Q6HPRN PRN (Reason: mild pain/fever)
thiamine HCl (vitamin B1) 100 mg tablet
100 mg feeding tube QPM
cholecalciferol (vitamin D3) [Pediatric D-Lara] 10 mcg/mL (400 unit/mL) drops
10 mcg feeding tube NOON
atorvastatin 40 mg tablet
40 mg feeding tube QPM
Discharge Orders:
Discharge Patient (As Directed); Ordered 06/23/24
Ordered By: Asiya Bocanegra
Discharge Date and Time
Discharge Date/Time: 06/23/24 12:57
Print Language: PASHTO
== END 2024-06-23 12:57 | disposition home or self-care (01) | DRG 177 ==
LOC: 4 EAST ACU 18:31
PROVIDERS: ADMITTING PHYSICIAN Internal Medicine; EMERGENCY PHYSICIAN Emergency Medicine; FAMILY PHYSICIAN Internal Medicine
DX: J69.0 Pneumonitis due to inhalation of food and vomit (principal); G92.8 Other toxic encephalopathy; F03.911 Unspecified dementia, unspecified severity, with agitation; Z87.891 Personal history of nicotine dependence; Z85.46 Personal history of malignant neoplasm of prostate; Z86.73 Personal history of transient ischemic attack (TIA), and cerebral infarction without residual deficits; Z11.52 Encounter for screening for COVID-19
CPT/HCPCS: 51701; 70450; 71046; 71250; 80048; 80053; 81003; 81015; 83605; 84484; 85025; 85027; 87040; 87502; 87811; 92610; 93005; 94760; 99285

== ENCOUNTER 2024-07-04 10:57 | Outpatient (RCR) | payer MEDICARE, BC, SELFPAY | END 2024-07-04 23:59 | disposition home or self-care (01) | LOC: RST 10:57 | PROVIDERS: ATTENDING PHYSICIAN Internal Medicine Gastroenterology; FAMILY PHYSICIAN Internal Medicine | DX: R13.12 Dysphagia, oropharyngeal phase (principal); U09.9 Post COVID-19 condition, unspecified; R41.89 Other symptoms and signs involving cognitive functions and awareness; Z93.1 Gastrostomy status | CPT/HCPCS: 92526 ==

== ENCOUNTER 2024-07-14 13:48 | Inpatient (IN) | payer MEDICARE, BC, SELFPAY ==
[2024-07-14] VITALS (9 sets, daily range): BP systolic 111–174; BP diastolic 49–81; BMI 21.2
--- NOTE | 2024-07-14 09:43 | ED.GENMED ---
History of Present Illness
General
Chief Complaint: Fever
Source: patient, records and ambulance crew
Time Seen by Provider: 07/14/24 09:20
History of Present Illness
History of Present Illness:
This patient is a 78-year-old male presents emergency department with reported fever which began yesterday associated with increasing agitation. Report received from medics. Patient noted to have a unremarkable Accu-Chek by medics and no major
vital sign abnormalities. No further information offered by medics. Here in the ER, patient is awake alert pleasant. He is overall a difficult historian but denies headache, photophobia, neck pain, chest pain, shortness of breath.
Past History
Past History
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
stenosis 65% in 2018, proximal left vertebral artery occlusion)
ED Past Surgical History: Orthopedic (left wrist surgery, left foot surgery) and Other (left carotid endarterectomy, prostatectomy)
Social History
Tobacco: Former smoker
Alcohol: Occasional
Drug: None
Personal: Partner
Living: with family
Family History
Family History: Other (reviewed and noncontributory)
Phy Exam
Physical Exam
Physical Exam:
GENERAL: Alert , in no apparent distress
EYE: pupils equal and reactive, EOMI, conjunctive of pain, no photophobia
NECK: Supple, no significant adenopathy.
ENT: o/p clr, mmm, no trismus, no drool, voice clear.
CARDIAC: Regular rate and rhythm .
LUNGS: Equal breath sounds bilaterally, no acute respiratory distress, slight wheezing noted, very slight rales noted at left base
ABDOMEN: Soft, without focal tenderness, no r/g, no cvat, feeding tube site without redness warmth or drainage
NEUROLOGICAL: Alert, awake, pleasant. MAEE, no facial droop, speech clear. Uncooper with formal neuro exam, however neuro intact as noted.
SKIN: Warm and dry, skin intact.
MUSCULOSKELETAL: No edema, well perfused.
PSYCH: pleasant, poor historian, sometimes tangential dialogue but then very appropriate ex 'That didn't hurt at all!' when IV placed by RN.
: R inguinal hernia noted, nontender to palpation however unable to easily reduce.
Sepsis
Sepsis Screening
Sepsis Assessment: Sepsis
Sepsis Screen
Sepsis Screen: Sepsis
Date: 07/16/24
Time: 11:35
Course
Orders/Labs/Results
Orders:
Orders
07/14/24 Breakfast
NPO
Allow oral meds: No
Allow clear liquids: No
07/14/24 09:28
Cardiac Monitoring- Treatment ONCE
Pulse Ox/cont/shift [RESP] Urgent
Quantity: 1
07/14/24 09:29
Electrocardiogram (*1) Urgent
Reason for Study: Other
Other Reason for Exam: sepsis
EKG- Treatment ONCE
CR Chest - 2 Views Urgent
Comment:
Reason For Exam: fever
07/14/24 09:43
Basic Metabolic Panel Urgent
COVID-19 Antigen Urgent
Source: Nasal Swab
Complete Blood Count/With Diff Urgent
Lactic Acid Q4H
Comment: CANCEL 2nd LACTIC ACID IF 1st LACTIC ACID IS LESS THAN 2
Troponin I Urgent
Blood Culture Q30M
HE Source: Blood/Venous
Specimen Description:
Influenza A+B Rapid Molecular Urgent
HE Source: Nasal Swab
Specimen Description:
07/14/24 09:47
Urinalysis Reflex To Culture Urgent
Date Specimen was Collected: 07/14/24
Time Specimen was Collected: 09:44
Urine Microscopic Reflex Cult Urgent
Urine Culture Urgent
HE Source: U
Specimen Description:
Date Specimen was Collected: 07/14/24
Time Specimen was Collected: 09:44
07/14/24 09:50
Acetaminophen [Tylenol] 1,000 mg PO NOW STA
07/14/24 09:51
CT Abd/pelvis W Iv Cont Urgent
Comment:
Reason For Exam: fever, R inguinal hernia
07/14/24 11:10
0.9% Sodium Chloride 1000 ml [Nss] 1,800 ml IV NOW STA
07/14/24 11:18
Ampicillin/Sulbactam 3 G [Unasyn] 3 gm 0.9% Sodium Chloride 100 ml [Nss] 100 ml IV NOW
07/14/24 13:12
Blood Culture Q30M
HE Source: Blood/Venous
Specimen Description:
07/14/24 13:28
Admit/Transfer Patient As Directed
Co-Sign Provider:
Level of Care: Inpatient admission
Assign to:: Telemetry
Physician / Group: pasricha/medicine
Diagnosis: asp pneumonia, sepsis
Reason for Telemetry: Arrhythmia
Date to Stop Telemetry: 07/17/24
Time to Stop Telemetry: 11:00
Reason for Hospitalization: asp pneumonia, sepsis
Expected length of stay greater than two midnights?: Yes
ELOS- Estimated Length of Stay in days: 3
I certify the patient meets the requirements for IP care: Yes
PRN Pain Medication Management As Directed
May give lesser potent ordered pain med per pt: Yes
preference::
Protocol:: Medication orders for pain may be administered in a
manner that supports deferring to patient preference
when the pt is:
- Requesting an ordered lesser potent pain medication.
Least to most potent pain medications are defined
as: acetaminophen < NSAID < tramadol < opioids
(morphine, oxycodone, hydromorphone).
- Requesting a lesser dose of the same medication IF
ORDERED.
- Requesting a less intrusive route of administration
if both routes are prescribed by the provider (PO <
IV).
07/14/24 13:29
Code Status As Directed
Resuscitation Status: Do not resuscitate
Reached after discussion with pt or family/Healthcare POA: Yes
DNR Bracelet Application ONCE
07/14/24 14:51
Ipratropium/Albuterol Sulfate [Duoneb] 3 ml INH R Q4HPRN PRN
Lactated Ringers [Lr] 1,000 ml IV 100 mls/hr
07/14/24 14:51
Respiratory Culture/Gram Stain Urgent
HE Source: Sputum
Specimen Description:
Date Specimen was Collected: 07/15/24
Time Specimen was Collected: 13:45
Activity As Directed
Activity Level: Out of Bed-Early Mobility
Intake/ Output As Directed
Frequency: Per unit guidelines
Vital Signs As Directed
Frequency: Per unit guidelines
Weight As Directed
Frequency: Once
Comment: on admission
Rx Incentive Spirometry [RESP] Routine
Frequency: q1h while awake
Rx Pep / Acapela [RESP] Routine
Pt Eval And Treat Routine
Activity Level: As Tolerated
Speech Therapy Eval & Treat Routine
DX Deep Vein Thrombosis Video Routine
07/14/24 16:00
Heparin 5,000 units SC Q8
Ipratropium/Albuterol Sulfate [Duoneb] 3 ml INH R QID
07/14/24 18:00
Ampicillin/Sulbactam 3 G [Unasyn] 3 gm 0.9% Sodium Chloride 100 ml [Nss] 100 ml IV Q6H
07/15/24 05:34
Complete Blood Count/No Diff IN AM
Comprehensive Metabolic Panel IN AM
07/15/24 08:00
Aspirin Chewable [Low Strength Aspirin] 81 mg TUBE DAILY
Famotidine [Pepcid] 20 mg TUBE DAILY
Metoprolol [Lopressor] 50 mg TUBE DAILY
07/17/24 11:00
DC Protocol for Telemetry ONCE
Abnormal Lab Results
07/14/24 07/14/24
09:43 09:47
RBC 3.88 L 10^6/uL
(4.70-6.10)
Hgb 12.7 L g/dL
(13.0-18.0)
Hct 37.2 L %
(39.0-52.0)
MCV 95.9 H fL
(80.0-94.0)
MCH 32.7 H pg
(27.0-31.0)
Absolute Neuts (auto) 6.9 H 10^3/uL
(1.4-6.5)
Absolute Monos (auto) 1.0 H 10^3/uL
(0.1-0.6)
Lymphocytes % 19.2 L %
(20.5-51.1)
Monocytes % 10.0 H %
(1.7-9.3)
Creatinine 0.6 L mg/dL
(0.7-1.3)
Glucose 129 H mg/dl
(70-99)
Ur Occult Blood Reflex 2+ A
(Negative)
Urine RBC 16-20 A /HPF
(0-2)
Urine Bacteria (Reflex) Moderate A
(Negative)
Urine Albumin (Reflex) 1+ A
(Neg - Trace)
07/14/24 09:43
07/14/24 09:43
Vital Signs
Initial and Last Documented VS:
Initial Vital Signs
BP
173/59
07/14/24 09:23
Last Documented Vital Signs
Temp Pulse Resp BP Pulse Ox
97.9 F 60 16 160/64 98
07/16/24 11:03 07/16/24 11:03 07/16/24 11:03 07/16/24 11:03 07/16/24 11:03
*Critical Care Note
Total Time (30-74mins, 75-104mins- exclusive of procedures): Not Applicable
Update Note
Update Note:
Patient presents to the Emergency Department with fever and reported behavior changes____
Number and Complexity of Problems Addressed at the Encounter
� Chronic conditions affecting care:
� Acute Exacerbation and/or Progression of Chronic Illness:
� Differential Diagnosis includes: But not limited to sepsis, pneumonia, urosepsis, etc. etc.
Amount and/or Complexity of Data to be Reviewed and Analyzed
� I performed an independent evaluation of and my interpretation is:
EKG: Read by me, normal sinus rhythm with first-degree block, no acute ischemia noted
CT:No acute pathology of the abdomen or pelvis identified.
Mild groundglass opacities in left lower lobe concerning for developing pneumonia. New. Limited exam secondary to patient motion artifact.
Bilateral fat-containing inguinal hernias. Enlarged bilaterally. No evidence of incarceration or strangulation.
Xrays:rads Progressed findings suggesting bilateral mid lung field pneumonia.
Laboratory Studies: Generally unremarkable, COVID-negative, flu negative, no leukocytosis
Other:
� Review of other/old records reveals: Discharge summary etc. reviewed patient was hospitalized earlier this month on the, with a presumed aspiration pneumonia as noted on CAT scan, given IV Zosyn and then transition to p.o.
Augmentin. Patient has a history of encephalopathy with certain medications and this needs to be carefully considered. Goal is to remove the PEG tube when patient's weight is at least 140 pounds. Speech therapy note 'Continuation of speech
therapy services is recommended as patient is likely to
continue making good progress. Recommend to continue regular solids/thin
liquids given tolerance with monitoring.'
� Clinical information was obtained by an independent historian: EMS
� Prescriptions/Medications Considered but not given:
� Further testing considered but not performed:
Risk of Complications and/or Morbidity or Mortality of Patient Management
� Social determinants of health affecting care:
� Discussion with other providers (PCP, Hospitalists, Consultants, etc):
� Escalation of care including admission/observation vs risk of discharge considered: Blood pressure remains stable. IV fluids ordered given patient meets criteria for sepsis suspect origin related to pneumonia. Case discussed
with hospitalist via [place] text for admission, incidental inguinal hernia pending CT.
ED Attending Note
-
Portions of this chart may have been created with voice recognition software.� Occasional wrong word or��sound alike� substitutions may have occurred due to the inherent limitations of voice recognition software.
Discharge Plan
Departure
Patient Disposition: Admit
Date of Disposition: 07/14/24
Time of Disposition: 11:17
Admit to: Telemetry
Presentation/result/management discussed w/ accepting MD/DO: Hospitalist
Condition: Fair
Discharge Problem:
Sepsis
Interventions
Interventions:
*Risk Screen - Suicide Last Done: 07/14/24 15:58
*General Assessment Last Done: 07/14/24 09:25
*Neglect/Abuse Screening Last Done: 07/14/24 09:25
*ED- Fall Risk Assessment Last Done: 07/14/24 09:25
*ED COVID-19 Vaccine History Last Done: 07/14/24 15:48
*Nursing Disposition Last Done: 07/14/24 14:49
ED- Neurological Assessment Last Done: 07/14/24 09:25
ED-Skin Assessment Last Done: 07/14/24 09:25
Discharge Date and Time
Discharge Date/Time: 07/14/24 14:49
[2024-07-14 09:53] LABS: Hematocrit 37.2 % (39.0-52.0); Hemoglobin 12.7 g/dL (13.0-18.0); Mean Corp Hgb Conc. 34.1 g/dL (33.0-37.0); Mean Corpuscular Hgb 32.7 pg (27.0-31.0); Mean Corpuscular Volume 95.9 fL (80.0-94.0); Mean Platelet Volume 10.1 fL (7.4-10.4); Platelet Count 175 10^3/uL (130-400); Red Blood Cell Count 3.88 10^6/uL (4.70-6.10); Red Cell Dist. Width 12.7 % (11.5-14.5); White Blood Cell Count 10.1 10^3/uL (4.8-10.8)
[2024-07-14 10:02] LABS: Lactic Acid 1.7 mmol/L (0.7-2.0)
[2024-07-14] MEDS: TYLENOL 1000 MG PO (10:05)
[2024-07-14 10:07] LABS: Blood Urea Nitrogen 20 mg/dl (9-20); Calcium 9.1 mg/dl (8.4-10.2); Carbon Dioxide 25 mmol/L (22-30); Chloride 103 mmol/L (98-107); Estimated Creatinine Clearance 87 ml/min; Glucose 129 mg/dl (70-99); Sodium 137 mmol/L (135-145); eGFR > 60.00
[2024-07-14 10:08] LABS: Urine Albumin 1+ (Neg - Trace); Urine Bilirubin Negative (Negative); Urine Character Clear (Clear); Urine Color Yellow; Urine Glucose Negative (Negative); Urine Ketone Negative (Negative); Urine Leukocyte Negative (Negative); Urine Nitrite Negative (Negative); Urine Occult Blood 2+ (Negative); Urine Urobilinogen Negative (Neg - 1+)
[2024-07-14 10:15] LABS: Troponin I < 0.012 ng/ml
[2024-07-14 10:16] LABS: Urine Urothelial Cell 0-2 /LPF (FEW)
[2024-07-14 10:17] LABS: Urine Bacteria Moderate (Negative); Urine Red Blood Cell 16-20 /HPF (0-2); Urine White Cell 0-2 /HPF (0-5)
[2024-07-14 10:20] LABS: COVID-19 Antigen Negative (Negative)
[2024-07-14 10:30] LABS: % Basophils 0.3 % (0-2); % Eosinophils 1.8 % (0-6); % Immature Granulocytes 0.4 % (0-0.5); % Lymphocytes 19.2 % (20.5-51.1); % Neutrophils 68.3 % (42.2-75.2); Absolute Eosinophils 0.2 10^3/uL (0-0.7); Absolute Lymphocytes 1.9 10^3/uL (1.2-3.4); Absolute Neutrophils 6.9 10^3/uL (1.4-6.5); Nucleated Red Blood Cells % 0.2 % (-)
[2024-07-14] MEDS: NSS 1800 ML IV (11:24)
[2024-07-14] MEDS: UNASYN IV ×3 (11:34→23:27)
--- NOTE | 2024-07-14 13:32 | HPS.HSE ---
Family Physician
-
Family Physician: NOT KNOW UNKNOWN - PT DOES
Chief Complaint
-
Reported fever, increasing agitation
History of Present Illness
78-year-old male with past medical history of dementia, prostate cancer, CVA, poor response to sedation, hypertension, hyperlipidemia, recurrent aspiration pneumonia, dysphagia with feeding tube, recently approved for oral intake although informed
of risk factors on prior admission this month now presents for reported fever and increasing agitation. Patient is overall difficult historian, although denies headache, photophobia, neck pain, chest pain, shortness of breath. No to be febrile and
patient temperature 101.9. Pulse 102, respiratory 23, 97% on 2 L likely under 2, UA negative. CT imaging remarkable for left lower lobe pneumonia, bilateral fat-containing inguinal hernias, no evidence of incarceration or strangulation.
Medical History
Past Medical History
Past Medical History: Reports Other (Dementia, history of prolonged encephalopathy, hyperlipidemia, first-degree heart block, recurrent aspiration pneumonia, dysphagia with feeding tube, hypoxia)
Past Surgical History: Reports Other (No recent major surgery )
Social History
Unable to obtain full social history at this time due to: Dementia
Personal:
Living: With Family
Family History
Family History: Not pertinent
Allergies / Home Medications
Allergies reflects when Allergies were last updated in [facility].
Home Medications with original date entered in [facility]
Allergy/Medication List:
Allergies
Allergy/AdvReac Type Severity Reaction Status Date / Time
Sulfa (Sulfonamide Allergy Unknown Verified 07/14/24 10:30
Antibiotics)
Home Medications
metoprolol tartrate 50 mg tablet 50 mg PO DAILY Blood Pressure 05/20/24
thiamine HCl (vitamin B1) 100 mg tablet 100 mg PO QPM Supplement 06/22/24
atorvastatin 40 mg tablet 40 mg PO QPM High Cholesterol 06/23/24
aspirin 81 mg chewable tablet 81 mg PO DAILY 07/14/24
famotidine 20 mg tablet 20 mg PO DAILY 07/14/24
Review of Systems
-
Unable to obtain full review of systems at this time due to: Dementia
Physical Exam
Vital Signs
Vital Signs
Temp Pulse Resp BP Pulse Ox
99.1 F 72 8 114/56 96
07/14/24 11:29 07/14/24 13:15 07/14/24 13:15 07/14/24 13:00 07/14/24 12:15
Physical Exam
General: No Apparent Distress and Comfortable
HEENT: Moist mucous membranes, Atraumatic, Nose Appears Normal, Ears Appear Normal and Other (poor dentition )
Respiratory: Other (slight wheezing noted, very slight rales noted at left base)
Cardiac: S1/S2 and Regular Rhythm
GI: Soft, Non Tender, Non Distended, Normal Bowel Sounds and Peg Tube
Genito-urinary: No Ford
Musculoskeletal: No Clubbing, No Cyanosis and No Edema
Skin: No Jaundice
Neuro: Awake, Oriented and Nonfocal/grossly intact
Psych: Calm and Apparent Dementia
Laboratory Results
-
07/14/24 09:43
07/14/24 09:43
Laboratory Results
Lactic Acid Cancelled 07/14/24 13:30
Total Bilirubin Cancelled 07/14/24 09:43
AST Cancelled 07/14/24 09:43
ALT Cancelled 07/14/24 09:43
Alkaline Phosphatase Cancelled 07/14/24 09:43
Troponin I < 0.012 ng/ml 07/14/24 09:43
Data Reviewed
-
Diagnostic Radiology: Report Reviewed by me
CT Scan: Report Reviewed by me
Lab Data: Labs Reviewed by me
Impression/Plan
-
IMPRESSION:
78-year-old male with past medical history of dementia, prostate cancer, CVA, poor response to sedation, hypertension, hyperlipidemia, recurrent aspiration pneumonia, dysphagia with feeding tube, recently approved for oral intake although informed
of risk factors on prior admission this month now presents for reported fever and increasing agitation. Admitted for sepsis most likely secondary to large aspiration pneumonia.
PLAN:
#Acute hypoxia
� Secondary to pneumonia
� Continue antibiotics
� Wean as tolerated
� Incentive spirometer, Acapella
#Sepsis
#Large aspiration pneumonia
� Has been taking p.o. intake as apparently was cleared for this outpatient
� Continue n.p.o. for now
� Continue Unasyn
� Follow-up cultures including blood, sputum expectorating and urine.
� IV fluids
� Maintain MAP greater than 65
� MRSA swab
� Escalate antibiotic regimen if decompensating, becomes hemodynamically stable
� SARS-CoV-2, flu negative
#Bilateral fat-containing inguinal hernias
� Follow-up surgery outpatient
#Acute on chronic metabolic encephalopathy + dementia
� Most likely secondary to sepsis + Dementia
� Continue to monitor with resuscitation
# History of dysphagia
Per , his swallowing improving and currently eating 1 or 2 meals a day of regular food
He still gets total of 6 cans of Jevity daily
-NPO for now
-Speech eval
#History of Urinary retention:
Hx urethral stricture monitor for retention
# History of primary hypertension/prediabetes
-Lopressor
# History of CVA
-asa
# History of prostate cancer
# History of peripheral vascular disease with carotid stenosis status post left CEA
asa
DVT ppx
HSQ
[2024-07-14] MEDS: DUONEB 3 ML INH ×2 (15:08→18:33)
[2024-07-14] MEDS: LR 1000 IV (17:31)
[2024-07-14] MEDS: HEPARIN 5000 UNITS SC ×2 (17:32→23:30)
[2024-07-15 03:00] VITALS: BP 140/55
[2024-07-15] MEDS: UNASYN IV ×3 (05:12→18:18)
[2024-07-15] MEDS: LR IV ×2 (05:58→15:19)
[2024-07-15 06:32] LABS: Hematocrit 36.1 % (39.0-52.0); Mean Corp Hgb Conc. 33.2 g/dL (33.0-37.0); Mean Corpuscular Hgb 33.1 pg (27.0-31.0); Mean Corpuscular Volume 99.7 fL (80.0-94.0); Mean Platelet Volume 10.9 fL (7.4-10.4); Platelet Count 156 10^3/uL (130-400); Red Blood Cell Count 3.62 10^6/uL (4.70-6.10); Red Cell Dist. Width 12.7 % (11.5-14.5)
[2024-07-15 07:15] VITALS: BP 171/64
[2024-07-15 07:15] LABS: ALT (SGPT) 50 U/L (0-50); AST (SGOT) 37 U/L (17-59); Albumin 3.4 g/dl (3.5-5.0); Alkaline Phosphatase 82 U/L (38-126); Blood Urea Nitrogen 14 mg/dl (9-20); Calcium 8.5 mg/dl (8.4-10.2); Carbon Dioxide 25 mmol/L (22-30); Chloride 107 mmol/L (98-107); Estimated Creatinine Clearance 87 ml/min; Glucose 112 mg/dl (70-99); Potassium 4.6 mmol/L (3.5-5.1); Sodium 140 mmol/L (135-145); Total Bilirubin 0.7 mg/dl (0.2-1.3); Total Protein 5.5 g/dl (6.3-8.2); eGFR > 60.00
[2024-07-15] MEDS: DUONEB 3 ML INH ×2 (07:20→11:30)
[2024-07-15] MEDS: LOW STRENGTH ASPIRIN TUBE (08:05)
[2024-07-15] MEDS: LOPRESSOR TUBE (08:05)
[2024-07-15] MEDS: PEPCID TUBE (08:05)
[2024-07-15] MEDS: HEPARIN 5000 UNITS SC ×2 (09:44→18:20)
[2024-07-15] MEDS: LOW STRENGTH ASPIRIN 81 MG TUBE (09:53)
[2024-07-15] MEDS: LOPRESSOR 50 MG TUBE (09:53)
[2024-07-15] MEDS: PEPCID 20 MG TUBE (09:53)
[2024-07-15 11:15] VITALS: BP 155/61
--- NOTE | 2024-07-15 11:59 | W.PN.HOSP.TC ---
Today's Communication/Plan
-
abx
f/u cultures
speech and peg feeding bolus titration
Assessment / Plan
Assessment / Plan
Physical Exam
General: No Apparent Distress and Comfortable
HEENT: Moist mucous membranes, Atraumatic, Nose Appears Normal, Ears Appear Normal and Other (poor dentition )
Respiratory: CTAB
Cardiac: S1/S2 and Regular Rhythm
GI: Soft, Non Tender, Non Distended, Normal Bowel Sounds and Peg Tube
Genito-urinary: No Ford
Musculoskeletal: No Clubbing, No Cyanosis and No Edema
Skin: No Jaundice
Neuro: Awake, Oriented and Nonfocal/grossly intact
Psych: Calm and Apparent Dementia
IMPRESSION:
78-year-old male with past medical history of dementia, prostate cancer, CVA, poor response to sedation, hypertension, hyperlipidemia, recurrent aspiration pneumonia, dysphagia with feeding tube, recently approved for oral intake although informed
of risk factors on prior admission this month now presents for reported fever and increasing agitation. Admitted for sepsis most likely secondary to large aspiration pneumonia.
PLAN:
#Acute hypoxia, resolved
� Secondary to pneumonia
� Continue antibiotics
� Wean as tolerated
� Incentive spirometer, Acapella
#Sepsis
#Large aspiration pneumonia
� Has been taking p.o. intake as apparently was cleared for this outpatient
� Continue n.p.o. for now
� Continue Unasyn
� Follow-up cultures including blood, sputum expectorating and urine.
� IV fluids PRN
� Maintain MAP greater than 65
� MRSA swab
� Escalate antibiotic regimen if decompensating, becomes hemodynamically stable
� SARS-CoV-2, flu negative
#Bilateral fat-containing inguinal hernias
� Follow-up surgery outpatient
#Acute on chronic metabolic encephalopathy + dementia
� Most likely secondary to sepsis + Dementia
� Continue to monitor with resuscitation
# History of dysphagia
Per , his swallowing improving and currently eating 1 or 2 meals a day of regular food
He still gets total of 6 cans of Jevity daily (bolus feeding that may have to be adjusted)
-NPO for now
-Speech eval
#History of Urinary retention:
Hx urethral stricture monitor for retention
# History of primary hypertension/prediabetes
-Lopressor
# History of CVA
-asa
# History of prostate cancer
# History of peripheral vascular disease with carotid stenosis status post left CEA
asa
DVT ppx
HSQ
Anticipated Discharge: 24 - 48 hours
Subjective/Interval History
-
Date of Service: July 15, 2024
No acute events, remains afebrile overnight
Objective Data
-
Labs:
Laboratory Results
07/15/24
05:34
WBC 8.0
Hgb 12.0 L
Hct 36.1 L
Plt Count 156
Sodium 140
Potassium 4.6
Chloride 107
Carbon Dioxide 25
BUN 14
Creatinine 0.6 L
Glucose 112 H
Calcium 8.5
Total Bilirubin 0.7
AST 37
ALT 50
Alkaline Phosphatase 82
Vital Signs:
Vital Signs
Temp Pulse Resp BP Pulse Ox
98.4 F 62 14 155/61 98
07/15/24 11:15 07/15/24 11:33 07/15/24 11:33 07/15/24 11:15 07/15/24 11:33
I&O
07/14/24 07/15/24 07/16/24
06:59 06:59 06:59
Intake Total 1340 / 1340
Balance 1340 / 1340
Review of Systems
-
History Source: Patient
All other systems: Not reviewed unless documented
Physical Exam
-
Respiratory: Non Labored Respirations; Negative Accessory Resp Muscle Use
Cardiac: Regular Rhythm and S1/S2
GI: Soft
Neuro: Awake, Alert, Oriented (self and person) and No Motor Deficits
Psych: Calm and Confused; Negative Agitated
Data Reviewed
-
Diagnostic Radiology: Report Reviewed by me
CT Scan: Report Reviewed by me
Labs: Labs Reviewed by me
--- NOTE | 2024-07-15 14:23 | PTOTSP ---
SPEECH THERAPY SWALLOW EVALUATION:
Patient continues to exhibit clinical signs of oropharyngeal dysphagia, chronic 2/2 dementia/CVA. Patient remains at HIGH RISK for aspiration and related complications with oral diet due to tenuous pulmonary status and severe
confusion/agitation/impulsivity. Patient was previously recommended for NPO earlier this month, though /patient reported they have continued to eat/drink by mouth. Now with recurrent aspiration pneumonia. Recommend NPO with PEG for all
nutrition/medication/hydration. Oral care 3x/day and increased mobility as able/tolerated to reduce risk for nosocomial infection. ST to follow briefly to determine indication for repeat instrumental assessment of swallowing as appropriate.
RECOMMEND:
1) NPO with PEG for all nutrition/medication/hydration
2) Oral care 3x/day and increased mobility as able/tolerated
3) ST to follow briefly to determine indication for repeat instrumental assessment of swallowing as appropriate
[2024-07-15 15:10] VITALS: BP 152/63
[2024-07-15] MEDS: LR 1000 IV (16:32)
--- NOTE | 2024-07-15 17:31 | PTCARENOTE ---
patient disoriented to time and place, confused, forgetful. needs frequent direction and explanation, but pt unable to verbalize adequate knowledge and understanding, no s/s of aspiration, transferring to br with assist x1, vss, will continue to
monitor.
[2024-07-15 19:00] VITALS: BP 163/73
[2024-07-15 23:00] VITALS: BP 148/63
[2024-07-16] MEDS: HEPARIN 5000 UNITS SC ×4 (00:04→23:36)
[2024-07-16] MEDS: UNASYN IV ×5 (00:04→23:36)
[2024-07-16 03:00] VITALS: BP 161/65
[2024-07-16 05:59] LABS: Hematocrit 38.1 % (39.0-52.0); Hemoglobin 12.4 g/dL (13.0-18.0); Mean Corp Hgb Conc. 32.5 g/dL (33.0-37.0); Mean Corpuscular Hgb 32.2 pg (27.0-31.0); Mean Platelet Volume 10.9 fL (7.4-10.4); Platelet Count 156 10^3/uL (130-400); Red Blood Cell Count 3.85 10^6/uL (4.70-6.10); Red Cell Dist. Width 12.6 % (11.5-14.5); White Blood Cell Count 6.9 10^3/uL (4.8-10.8)
[2024-07-16 06:32] LABS: Blood Urea Nitrogen 14 mg/dl (9-20); Calcium 8.6 mg/dl (8.4-10.2); Carbon Dioxide 25 mmol/L (22-30); Chloride 107 mmol/L (98-107); Estimated Creatinine Clearance 87 ml/min; Glucose 91 mg/dl (70-99); Potassium 4.2 mmol/L (3.5-5.1); Sodium 140 mmol/L (135-145); eGFR > 60.00
--- NOTE | 2024-07-16 06:46 | W.PN.HOSP.TC ---
Today's Communication/Plan
-
cont abx
trial diet as per speech
tube feeds as per receiving distribution station operator
PT/OT
Assessment / Plan
Assessment / Plan
Physical Exam
General: No Apparent Distress and Comfortable
HEENT: Moist mucous membranes, Atraumatic, Nose Appears Normal, Ears Appear Normal and Other (poor dentition )
Respiratory: CTAB
Cardiac: S1/S2 and Regular Rhythm
GI: Soft, Non Tender, Non Distended, Normal Bowel Sounds and Peg Tube
Genito-urinary: No Ford
Musculoskeletal: No Clubbing, No Cyanosis and No Edema
Skin: No Jaundice
Neuro: Awake, Oriented and Nonfocal/grossly intact
Psych: Calm and Apparent Dementia
IMPRESSION:
78-year-old male with past medical history of dementia, prostate cancer, CVA, poor response to sedation, hypertension, hyperlipidemia, recurrent aspiration pneumonia, dysphagia with feeding tube, recently approved for oral intake although informed
of risk factors on prior admission this month now presents for reported fever and increasing agitation. Admitted for sepsis most likely secondary to large aspiration pneumonia.
PLAN:
#Acute hypoxia, resolved
� Secondary to pneumonia
� Continue antibiotics
� Wean as tolerated
� Incentive spirometer, Acapella
#Sepsis
#suspect aspiration pneumonia
#Hx dysphagia
� Continue Unasyn
� cultures including blood, sputum expectorating and urine. No significant growth noted, though sputum culture noted overcontaminated
- Speech eval appreciated trial diet resumed soft bite sized thin liquids
-Dietary eval appreciated bolus tube feeds ordered as per rec's
� IV fluids completed
� MRSA swab neg
� SARS-CoV-2, flu negative
#Bilateral fat-containing inguinal hernias
� Follow-up surgery outpatient
#Acute on chronic metabolic encephalopathy + dementia
� Most likely secondary to sepsis + Dementia
� mental status appears improved at this time
#History of Urinary retention:
Hx urethral stricture monitor for retention
# History of primary hypertension/prediabetes
-Lopressor
# History of CVA
-asa
# History of prostate cancer
# History of peripheral vascular disease with carotid stenosis status post left CEA
asa
DVT ppx
HSQ
Discussed with patient and patient's Terese
I spent a total of 50 minutes with the patient or on the floor. More than 50% of this time involved counseling and coordination of care.
Anticipated Discharge: 24 - 48 hours
Subjective/Interval History
-
Date of Service: July 16, 2024
AOx2 disoriented to time some confusion noted but conversant coherent. Appears comfortable at this time not acute distress. Stable respiratory status on room air.
Objective Data
-
Labs:
Laboratory Results
07/16/24
05:23
WBC 6.9
Hgb 12.4 L
Hct 38.1 L
Plt Count 156
Sodium 140
Potassium 4.2
Chloride 107
Carbon Dioxide 25
BUN 14
Creatinine 0.6 L
Glucose 91
Calcium 8.6
Vital Signs:
Vital Signs
Temp Pulse Resp BP Pulse Ox
97.7 F 72 18 161/65 97
07/16/24 03:00 07/16/24 03:00 07/16/24 03:00 07/16/24 03:00 07/16/24 03:00
I&O
07/14/24 07/15/24 07/16/24
06:59 06:59 06:59
Intake Total 1340 / 1340 1120 / 1120
Balance 1340 / 1340 1120 / 1120
[2024-07-16 07:35] VITALS: BP 157/69
[2024-07-16] MEDS: LOW STRENGTH ASPIRIN 81 MG TUBE (09:44)
[2024-07-16] MEDS: PEPCID 20 MG TUBE (09:44)
[2024-07-16] MEDS: LOPRESSOR 50 MG TUBE (09:44)
[2024-07-16 09:50] VITALS: BP 186/83; PULSE 74; O2SAT 97
[2024-07-16 11:03] VITALS: BP 160/64
[2024-07-16 11:21] VITALS: BMI 21.2
--- NOTE | 2024-07-16 12:05 | PTOTSP ---
Speech Language Pathology
Pt seen for dysphagia tx. Significant other present at bedside. Pt has been seeing this PROJECT MANAGER SENIOR for outpatient dysphagia tx since March 2024. Diet was slowly advanced from tsp of thin water at beginning of course of therapy up to regular
solids/thin liquids on 06/07/24. No negative respiratory issues noted for some time. Pt was in ER 05/20 with COVID with clear CXR. Pt admitted 06/22-06/23 with ? mild L linguar PNA. Now admitted with sepsis secondary to aspiration PNA. However, CT
chest findings similar to admission earlier in month, and WBC WNL. Unsure if current admission related to aspiration or not.
Hoarse vocal quality noted at rest this date. P.O. trials of puree, regular solids, and thin liquids provided. Adequate mastication, bolus formation, and A-P transit noted with no oral residue. Intermittent wet voice noted, which pt could clear
with a throat clear/cough and reswallow. He frequently did this independently. He reported some food 'on the ledge,' which is how pt refers to pharyngeal residue, which he stated cleared with a throat clear/reswallow. Swallow function appears
close to baseline.
Long discussion with pt/significant other at bedside. Recommend to initiate diet with monitoring. Will hold on repeat VSE as pt is likely not at his best.
Recommend:
(1) Initiate IDDSI Level 6 (soft/bite-sized) and thin liquids
(2) If tolerates, PROJECT MANAGER SENIOR may increase to regular solids/thin liquids 07/17
(3) Aspiration precautions: sit upright, slow rate, single sips, small bites, intermittent throat clear/reswallow
(4) Meds as tolerated
(5) Continue outpatient dysphagia tx at discharge
(6) PROJECT MANAGER SENIOR to continue to follow
[2024-07-16] MEDS: LR IV (13:34)
[2024-07-16 15:07] VITALS: BP 161/59
[2024-07-16 19:40] VITALS: BP 149/60
[2024-07-17 03:15] VITALS: BP 140/62
[2024-07-17] MEDS: UNASYN IV ×2 (05:46→12:42)
[2024-07-17 06:40] LABS: Hematocrit 38.3 % (39.0-52.0); Hemoglobin 12.7 g/dL (13.0-18.0); Mean Corp Hgb Conc. 33.2 g/dL (33.0-37.0); Mean Corpuscular Hgb 32.4 pg (27.0-31.0); Mean Corpuscular Volume 97.7 fL (80.0-94.0); Mean Platelet Volume 10.8 fL (7.4-10.4); Platelet Count 184 10^3/uL (130-400); Red Blood Cell Count 3.92 10^6/uL (4.70-6.10); Red Cell Dist. Width 12.4 % (11.5-14.5); White Blood Cell Count 6.9 10^3/uL (4.8-10.8)
[2024-07-17 06:56] LABS: Blood Urea Nitrogen 18 mg/dl (9-20); Calcium 8.7 mg/dl (8.4-10.2); Carbon Dioxide 27 mmol/L (22-30); Chloride 104 mmol/L (98-107); Estimated Creatinine Clearance 87 ml/min; Glucose 94 mg/dl (70-99); Potassium 4.4 mmol/L (3.5-5.1); Sodium 139 mmol/L (135-145); eGFR > 60.00
[2024-07-17 07:56] VITALS: BP 172/73
[2024-07-17] MEDS: LOPRESSOR 50 MG TUBE (08:00)
[2024-07-17] MEDS: LOW STRENGTH ASPIRIN 81 MG TUBE (08:00)
[2024-07-17] MEDS: PEPCID 20 MG TUBE (08:00)
[2024-07-17] MEDS: HEPARIN 5000 UNITS SC ×3 (08:01→22:09)
--- NOTE | 2024-07-17 08:10 | W.PN.HOSP.TC ---
Today's Communication/Plan
-
IV ab transitioned to Oral
probiotic
diet advanced as per speech
possible discharge tomorrow if remains stable/continues to improve
Assessment / Plan
Assessment / Plan
Physical Exam
General: No Apparent Distress and Comfortable
HEENT: Moist mucous membranes, Atraumatic, Nose Appears Normal, Ears Appear Normal and Other (poor dentition )
Respiratory: CTAB
Cardiac: S1/S2 and Regular Rhythm
GI: Soft, Non Tender, Non Distended, Normal Bowel Sounds and Peg Tube
Genito-urinary: No Ford
Musculoskeletal: No Clubbing, No Cyanosis and No Edema
Skin: No Jaundice
Neuro: AOx3 conversant coherent though some confusion noted
Psych: Calm and Apparent Dementia
IMPRESSION:
78-year-old male with past medical history of dementia, prostate cancer, CVA, poor response to sedation, hypertension, hyperlipidemia, recurrent aspiration pneumonia, dysphagia with feeding tube, recently approved for oral intake although informed
of risk factors on prior admission this month now presents for reported fever and increasing agitation. Admitted for sepsis most likely secondary to large aspiration pneumonia.
PLAN:
#Acute hypoxia, resolved
� Secondary to pneumonia
� Continue antibiotics
� Wean as tolerated
� Incentive spirometer, Acapella
#Sepsis
#suspect aspiration pneumonia
#Hx dysphagia
� Unasyn transitioned to Augmentin, probiotic started
� cultures including blood, sputum expectorating and urine. No significant growth noted, though sputum culture noted overcontaminated
- Speech eval appreciated trial diet resumed soft bite sized thin liquids later advanced to regular, tolerating
- Dietary eval appreciated bolus tube feeds ordered as per recc's
� IV fluids completed
� MRSA swab neg
� SARS-CoV-2, flu negative
#Bilateral fat-containing inguinal hernias
� Follow-up surgery outpatient
#Acute on chronic metabolic encephalopathy + dementia
� Most likely secondary to sepsis + Dementia
� mental status appears improved at this time, baseline
#History of Urinary retention:
Hx urethral stricture monitor for retention
# History of primary hypertension/prediabetes
-Lopressor
# History of CVA
-asa
# History of prostate cancer
# History of peripheral vascular disease with carotid stenosis status post left CEA
asa
PT/OT appreciated Home Health
DVT ppx Heparin
Discussed with patient and patient's Terese
I spent a total of 45 minutes with the patient or on the floor. More than 50% of this time involved counseling and coordination of care.
Anticipated Discharge: Within 24 hours
Subjective/Interval History
-
Date of Service: July 17, 2024
No acute distress sitting up comfortably in chair. Overall reports feeling well. Tolerating diet. Terese present during evaluation.
Objective Data
-
Labs:
Laboratory Results
07/17/24
05:32
WBC 6.9
Hgb 12.7 L
Hct 38.3 L
Plt Count 184
Sodium 139
Potassium 4.4
Chloride 104
Carbon Dioxide 27
BUN 18
Creatinine 0.6 L
Glucose 94
Calcium 8.7
Vital Signs:
Vital Signs
Temp Pulse Resp BP Pulse Ox
98.5 F 62 18 172/73 100
07/17/24 07:56 07/17/24 08:00 07/17/24 07:56 07/17/24 08:00 07/17/24 07:56
I&O
07/16/24 07/17/24 07/18/24
06:59 06:59 06:59
Intake Total 1120 / 1120 1045 / 1045
Balance 1120 / 1120 1045 / 1045
--- NOTE | 2024-07-17 09:19 | PTOTSP ---
Speech Language Pathology
Pt seen for dysphagia tx. Sitting upright in recliner upon arrival. Had just finished full breakfast tray and was in a good mood. Reported no difficulty with breakfast. Seen with P.O. trials of regular solids and thin liquids. Intermittent wet
vocal quality noted at rest and with P.O. trials. Able to clear with a throat clear/reswallow. WBC WNL.
Recommend:
(1) Upgrade to regular solids/thin liquids
(2) Aspiration precautions: sit upright, slow rate, single sips, small bites, intermittent throat clear/reswallow
(3) Meds as tolerated
(4) Continue outpatient dysphagia tx at discharge
(5) FINANCIAL RECORDING CLERK to continue to follow
[2024-07-17 11:55] VITALS: BP 150/64
[2024-07-17 15:55] VITALS: BP 123/71
[2024-07-17] MEDS: FLORASTOR 250 MG PO (21:50)
[2024-07-17] MEDS: AUGMENTIN 875 MG/125 MG 1 TABLET PO (21:50)
[2024-07-17 23:25] VITALS: BP 173/79
[2024-07-18 06:28] VITALS: BMI 21.2
[2024-07-18 06:31] LABS: Hematocrit 38.4 % (39.0-52.0); Hemoglobin 12.8 g/dL (13.0-18.0); Mean Corp Hgb Conc. 33.3 g/dL (33.0-37.0); Mean Corpuscular Hgb 33.1 pg (27.0-31.0); Mean Corpuscular Volume 99.2 fL (80.0-94.0); Mean Platelet Volume 10.7 fL (7.4-10.4); Platelet Count 166 10^3/uL (130-400); Red Blood Cell Count 3.87 10^6/uL (4.70-6.10); Red Cell Dist. Width 12.3 % (11.5-14.5)
[2024-07-18 06:54] LABS: Blood Urea Nitrogen 17 mg/dl (9-20); Calcium 8.9 mg/dl (8.4-10.2); Carbon Dioxide 24 mmol/L (22-30); Chloride 106 mmol/L (98-107); Estimated Creatinine Clearance 87 ml/min; Glucose 101 mg/dl (70-99); Potassium 4.3 mmol/L (3.5-5.1); Sodium 140 mmol/L (135-145); eGFR > 60.00
[2024-07-18 07:27] VITALS: BP 157/57
--- NOTE | 2024-07-18 07:28 | W.PN.HOSP.TC ---
Addendum entered and electronically signed by Sade Hancock MD 07/18/24 14:09:
correction 07/20/24Tuesday last day for antibiotics
Original Note:
Today's Communication/Plan
-
discharge
Assessment / Plan
Assessment / Plan
Physical Exam
General: No Apparent Distress and Comfortable
HEENT: Moist mucous membranes, Atraumatic, Nose Appears Normal, Ears Appear Normal and Other (poor dentition )
Respiratory: CTAB
Cardiac: S1/S2 and Regular Rhythm
GI: Soft, Non Tender, Non Distended, Normal Bowel Sounds and Peg Tube
Genito-urinary: No Ford
Musculoskeletal: No Clubbing, No Cyanosis and No Edema
Skin: No Jaundice
Neuro: AOx2 disoriented time conversant coherent though some confusion noted (correction to prior documentation patient has been AOx2 baseline disoriented to time)
Psych: Calm and Apparent Dementia
IMPRESSION:
78-year-old male with past medical history of dementia, prostate cancer, CVA, poor response to sedation, hypertension, hyperlipidemia, recurrent aspiration pneumonia, dysphagia with feeding tube, recently approved for oral intake although informed
of risk factors on prior admission this month now presents for reported fever and increasing agitation. Admitted for sepsis most likely secondary to large aspiration pneumonia.
PLAN:
#Acute hypoxia, resolved
� Secondary to pneumonia vs viral URI (COVID/Flu neg)
� Continue antibiotics
� Incentive spirometer, Acapella
#Sepsis
#suspect aspiration pneumonia
#Hx dysphagia
� Unasyn transitioned to Augmentin, probiotic started, planned for total 7 days abx 07/19/24 last day
� cultures including blood, sputum expectorating and urine. No significant growth noted, though sputum culture noted overcontaminated
- Speech eval appreciated trial diet resumed soft bite sized thin liquids later advanced to regular, tolerating
- Dietary eval appreciated bolus tube feeds ordered as per recc's
� IV fluids completed
� MRSA swab neg
� SARS-CoV-2, flu negative
#Bilateral fat-containing inguinal hernias
� Follow-up surgery outpatient
#Acute on chronic metabolic encephalopathy + dementia
� Most likely secondary to sepsis + Dementia
� mental status appears improved at this time, baseline
#History of Urinary retention:
Hx urethral stricture monitor for retention
# History of primary hypertension/prediabetes
-Lopressor
# History of CVA
-asa
# History of prostate cancer
# History of peripheral vascular disease with carotid stenosis status post left CEA
asa
PT/OT appreciated Home Health
DVT ppx Heparin
Medically stable for discharge home with home services and outpatient follow up recommendations.
Discussed with patient and patient's Terese
Total Time Preparing Discharge __40 minutes including examination of the patient, summary of the hospital stay, instructions for continuing care to all relevant caregivers; and preparation of discharge records, prescriptions, and referral
forms if necessary.
Anticipated Discharge: Today
Subjective/Interval History
-
Date of Service: July 18, 2024
No acute distress resting comfortably in bed. Some confusion persists but likely baseline AOx2 disoriented to time. overall reports feeling well. Eager to go home
Objective Data
-
Labs:
Laboratory Results
07/18/24
05:09
WBC 6.0
Hgb 12.8 L
Hct 38.4 L
Plt Count 166
Sodium 140
Potassium 4.3
Chloride 106
Carbon Dioxide 24
BUN 17
Creatinine 0.6 L
Glucose 101 H
Calcium 8.9
Vital Signs:
Vital Signs
Temp Pulse Resp BP Pulse Ox
98 F 76 14 157/57 99
07/18/24 07:27 07/18/24 07:27 07/18/24 07:27 07/18/24 07:27 07/18/24 07:27
I&O
07/17/24 07/18/24 07/19/24
06:59 06:59 06:59
Intake Total 1045 / 1045 1829 / 183
Output Total 300 / 300
Balance 1045 / 1045 1530 / 1530
[2024-07-18] MEDS: PEPCID 20 MG PO (08:16)
[2024-07-18] MEDS: LOPRESSOR 50 MG PO (08:16)
[2024-07-18] MEDS: LOW STRENGTH ASPIRIN 81 MG PO (08:16)
[2024-07-18] MEDS: FLORASTOR 250 MG PO (08:17)
[2024-07-18] MEDS: HEPARIN 5000 UNITS SC (08:17)
[2024-07-18] MEDS: AUGMENTIN 875 MG/125 MG 1 TABLET PO (08:17)
--- NOTE | 2024-07-18 14:23 | W.DCSUMMARY ---
Discharge Summary
Discharge Data
Date of Admission: 07/14/24
Date of Discharge: 07/18/24
-
Pending Results: No
Discharge Plan
-
Patient Disposition: Home with Home Care
Discharge Diagnosis/Procedures: Acute hypoxia, resolved
Sepsis resolved
suspect aspiration pneumonia vs viral upper respiratory infection (COVID/Flu neg)
History Dysphagia, PEG tube
Dementia
Bilateral fat-containing inguinal hernias as noted on recent CT imaging
Condition: Fair
Diet: Regular and Tube feeding
Activity: As tolerated
Driving Restrictions: No driving
Bathing Restrictions: None
Other Services: PT and OT
Activity Restrictions/Additional Instructions:
Please follow up with primary care provider in 1 week of discharge. A general surgeon referral has been provided for follow up bilateral inguinal hernias as noted on recent CT. Pulmonology follow up has also been provided consideration possible
benefit pulmonary function testing.
Augmentin has been prescribed to treat suspected aspiration pneumonia. 07/20/24Tuesday last day for antibiotics.
Probiotic prescribed to promote gut health while on antibiotics. Ok to discontinue when off.
Referrals:
Tutu Panchal MD [Active] - in two to four weeks
Dennis Roberts MD [Active] - in two to four weeks
UNKNOWN - PT DOES,NOT KNOW [Family Provider] -
Prescriptions:
New
amoxicillin-pot clavulanate 875-125 mg Tablet
1 tab PO Q12 Qty: 5 0RF
Rx Instructions:
07/20/24Tuesday last day for antibiotics
Saccharomyces boulardii 250 mg Capsule
250 mg PO BID Qty: 5 0RF
Rx Instructions:
Ok to stop when off antibiotics
Continued
metoprolol tartrate 50 mg tablet
50 mg PO DAILY
thiamine HCl (vitamin B1) 100 mg tablet
100 mg PO QPM
atorvastatin 40 mg tablet
40 mg PO QPM
famotidine 20 mg tablet
20 mg PO DAILY
aspirin 81 mg tablet,chewable
81 mg PO DAILY
Discharge Orders:
Discharge Patient (As Directed); Ordered 07/18/24
Ordered By: Sade Hancock
Discharge Date and Time
Print Language: UKRAINIAN
[2024-07-18 15:09] VITALS: BP 162/56
--- NOTE | 2024-07-18 15:28 | CM ---
CM met with Ethan at his , Terese, at bedside to complete IA.
Ethan lives with his and has been involved with Leonor THOMPSON, PT and RN; requesting resumption of services at discharge. Divine is the RN that patient typically sees.
Referral sent via [facility] for resumption of care with Leonor THOMPSON.
Plan: Discharge to home; will drive. Leonor THOMPSON to resume services after return home.
IMM reviewed with patient and . Signed form placed on chart.
Leonor THOMPSON
== END 2024-07-18 15:45 | disposition home health service (06) | DRG 871 ==
LOC: 3 WEST ACU 13:48
PROVIDERS: ADMITTING PHYSICIAN Internal Medicine; ATTENDING PHYSICIAN Internal Medicine; EMERGENCY PHYSICIAN Emergency Medicine; FAMILY PHYSICIAN Internal Medicine
DX: A41.89 Other specified sepsis (principal); G93.41 Metabolic encephalopathy; J69.0 Pneumonitis due to inhalation of food and vomit; Z87.891 Personal history of nicotine dependence; Z11.52 Encounter for screening for COVID-19; Z66 Do not resuscitate; F03.90 Unspecified dementia, unspecified severity, without behavioral disturbance, psychotic disturbance, mood disturbance, and anxiety; I10 Essential (primary) hypertension; K40.20 Bilateral inguinal hernia, without obstruction or gangrene, not specified as recurrent; Z85.46 Personal history of malignant neoplasm of prostate; Z86.73 Personal history of transient ischemic attack (TIA), and cerebral infarction without residual deficits
CPT/HCPCS: 71046; 74177; 80048; 80053; 81003; 81015; 83605; 84484; 85025; 85027; 87040; 87086; 87205; 87502; 87641; 87811; 92526; 92610; 93005; 94640; 94760; 96361; 96374; 97116; 97163; 97167; 97530; 97535; 99285; Q9967

== ENCOUNTER 2024-07-23 16:41 | Inpatient (IN) | payer MEDICARE, BC, SELFPAY ==
[2024-07-23] VITALS (8 sets, daily range): BP systolic 119–154; BP diastolic 43–65; BMI 22.0; BMI 21.0
[2024-07-23 12:11] LABS: COVID-19 Antigen Negative (Negative)
--- NOTE | 2024-07-23 12:18 | ED.GENMED ---
History of Present Illness
General
Chief Complaint: Change in Mental Status
Time Seen by Provider: 07/23/24 11:29
History of Present Illness
History of Present Illness:
78-year-old male with history of dementia, diabetes, aspiration pneumonia with PEG tube, hyperlipidemia, hypertension presenting for change in mental status. Patient arrives by medics. had called medics for change in mental status and acute
confusion. Patient with recent hospital admission for aspiration pneumonia, sent home on Augmentin with last day of antibiotics being /. arrives to the hospital soon after patient, notes that he is still having a cough. He was fine over
the weekend, however woke up last evening, fell out of the bed and was wandering aimlessly around the house. She was delusional and notes that he had similar symptoms in the past, found to have metabolic encephalopathy from COVID. She notes that
he had a low-grade fever today. He is usually very ambulatory and self-sufficient. Patient unable to comply with any additional questioning given his clinical condition
Past History
Past History
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
stenosis 65% in 2018, proximal left vertebral artery occlusion)
ED Past Surgical History: Orthopedic (left wrist surgery, left foot surgery) and Other (left carotid endarterectomy, prostatectomy)
Social History
Tobacco: Former smoker
Alcohol: Occasional
Drug: None
Personal: Partner
Living: with family
Employment: Other (continues to work)
Family History
Family History: Other (reviewed and noncontributory)
Phy Exam
Physical Exam
Physical Exam:
General: Dry mucous membranes
HEENT: protecting airway
Neck: appears supple
CV: Tachycardic, regular rhythm
Resp: Mild tachypnea, lungs clear to auscultation bilaterally
Abd: Soft and non-distended, no tenderness to palpation
Extremities: No deformities, no swelling, no erythema
Neuro: alert, disoriented, grabbing at things that are not there with suspected delirium
: deferred
Rectal: deferred
Psych: Normal affect
Skin: Intact
Sepsis
Sepsis Screening
Sepsis Assessment: Sepsis
Sepsis Screen
Sepsis Screen: Sepsis
Date: 07/23/24
Time: 14:06
Course
Orders/Labs/Results
Orders:
Orders
07/23/24 11:35
EKG- Treatment ONCE
PTT Urgent
Prothrombin Time Urgent
0.9% Sodium Chloride 1000 ml [Nss] 1,000 ml IV BOLUS
07/23/24 11:36
Electrocardiogram (*1) Urgent
Reason for Study: Shortness of Breath
07/23/24 11:45
Lactic Acid Q4H
Comment: CANCEL 2nd LACTIC ACID IF 1st LACTIC ACID IS LESS THAN 2
07/23/24 11:46
COVID-19 Antigen Urgent
Source: Nasal Swab
Influenza A+B Rapid Molecular Urgent
HE Source: Nasal Swab
Specimen Description:
07/23/24 12:12
Complete Blood Count/With Diff Urgent
Comprehensive Metabolic Panel Urgent
Blood Culture Q30M
HE Source: Blood/Venous
Specimen Description:
07/23/24 12:15
Blood Culture Q30M
HE Source: Blood/Venous
Specimen Description:
07/23/24 12:40
Acetaminophen [Tylenol/Feverall] 650 mg RECTAL NOW STA
07/23/24 12:41
CT Head W/o Iv Contrast Urgent
Comment:
Reason For Exam: AMS, fall out of bed
07/23/24 12:43
Haloperidol Lactate [Haldol] 1 mg IV NOW STA
07/23/24 12:44
CR Chest Portable - 1 View Urgent
Comment:
Reason For Exam: cough, sepsis, AMS
Reason Study Needs to be Portable: Unable to Transport
07/23/24 12:59
Urinalysis Reflex To Culture Urgent
Date Specimen was Collected: 07/23/24
Time Specimen was Collected: 11:45
Urine Microscopic Reflex Cult Urgent
07/23/24 13:46
Cefepime HCl [Maxipime] 2,000 mg IV NOW STA
07/23/24 13:47
Vancomycin [Vancocin] 1,500 mg 0.9% Sodium Chloride 500 ml [Nss] 500 ml IV NOW
07/23/24 15:45
Lactic Acid Q4H
Comment: CANCEL 2nd LACTIC ACID IF 1st LACTIC ACID IS LESS THAN 2
Abnormal Lab Results
07/23/24 07/23/24
12:12 12:59
RBC 4.21 L 10^6/uL
(4.70-6.10)
MCV 99.5 H fL
(80.0-94.0)
MCH 32.5 H pg
(27.0-31.0)
MCHC 32.7 L g/dL
(33.0-37.0)
Absolute Neuts (auto) 6.7 H 10^3/uL
(1.4-6.5)
Absolute Monos (auto) 1.1 H 10^3/uL
(0.1-0.6)
Lymphocytes % 16.2 L %
(20.5-51.1)
Monocytes % 11.4 H %
(1.7-9.3)
Glucose 150 H mg/dl
(70-99)
AST 70 H U/L
(17-59)
ALT 104 H U/L
(0-50)
Ur Occult Blood Reflex 2+ A
(Negative)
Urine RBC 3-6 A /HPF
(0-2)
Urine Bacteria (Reflex) Few A
(Negative)
Urine Albumin (Reflex) 1+ A
(Neg - Trace)
07/23/24 12:12
07/23/24 12:12
Vital Signs
Initial and Last Documented VS:
Initial Vital Signs
Temp Pulse Ox
103.3 F H 99
07/23/24 12:25 07/23/24 12:25
Last Documented Vital Signs
Temp Pulse Resp Pulse Ox
103.3 F H 80 18 96
07/23/24 12:25 07/23/24 14:00 07/23/24 12:30 07/23/24 13:38
MDM/Problems Addressed
MDM/Problems Addressed:
78-year-old male with history of diabetes, Alzheimer's, hypertension, hyperlipidemia presenting for change in mental status. Vital signs on arrival significant for fever and tachycardia.
On exam patient appears to be delirious. Vital signs are concerning for sepsis. Recent admission for pneumonia, aspiration. In discussion with , patient does still eat and drink by mouth so aspiration is still a consideration or failure of
outpatient therapy. No present hypoxia. Will repeat chest x-ray imaging. Will plan for laboratory analysis including lactic acid, blood cultures. Will also send urinalysis for potential sepsis from urinary source. Will start patient on IV
fluids. Tylenol ordered for fever.
12:40 - Patient becoming increasingly agitated. Haldol administered for agitation.
13:50 -patient's agitation has improved after Haldol. Urine without significant sign of infection. Chest x-ray does show possible right-sided infiltrate. Continuing IV fluids in the setting of sepsis. Plan for broad-spectrum antibiotics and
admission.
*Critical Care Note
Total Time (30-74mins, 75-104mins- exclusive of procedures): Not Applicable
ED Attending Note
-
Portions of this chart may have been created with voice recognition software.� Occasional wrong word or��sound alike� substitutions may have occurred due to the inherent limitations of voice recognition software.
Discharge Plan
Departure
Patient Disposition: Admit
Date of Disposition: 07/23/24
Time of Disposition: 14:05
Presentation/result/management discussed w/ accepting MD/DO: Hospitalist
Patient with high blood pressure during this ER visit?: No
Condition: Fair
Discharge Problem:
Multifocal pneumonia, Sepsis, Acute metabolic encephalopathy
Prescriptions:
No Action
metoprolol tartrate 50 mg tablet
50 mg PO DAILY
thiamine HCl (vitamin B1) 100 mg tablet
100 mg PO QPM
atorvastatin 40 mg tablet
40 mg PO QPM
famotidine 20 mg tablet
20 mg PO DAILY
aspirin 81 mg tablet,chewable
81 mg PO DAILY
amoxicillin-pot clavulanate 875-125 mg Tablet
1 tab PO Q12 Qty: 5 0RF
Rx Instructions:
07/20/24Tuesday last day for antibiotics
Saccharomyces boulardii 250 mg Capsule
250 mg PO BID Qty: 5 0RF
Rx Instructions:
Ok to stop when off antibiotics
Referrals:
UNKNOWN - PT NOT,INTERVIEWE [Family Provider] -
Interventions
Interventions:
*Risk Screen - Suicide Last Done: 07/23/24 13:40
*General Assessment Last Done: 07/23/24 13:59
*Neglect/Abuse Screening Last Done: 07/23/24 13:40
*ED COVID-19 Vaccine History Last Done: 07/23/24 13:59
ED- Neurological Assessment Last Done: 07/23/24 13:41
Discharge Date and Time
Print Language: FRENCH
[2024-07-23 12:22] LABS: % Basophils 0.3 % (0-2); % Eosinophils 0.4 % (0-6); % Immature Granulocytes 0.3 % (0-0.5); % Lymphocytes 16.2 % (20.5-51.1); % Monocytes 11.4 % (1.7-9.3); % Neutrophils 71.4 % (42.2-75.2); Absolute Lymphocytes 1.5 10^3/uL (1.2-3.4); Absolute Monocytes 1.1 10^3/uL (0.1-0.6); Absolute Neutrophils 6.7 10^3/uL (1.4-6.5); Hematocrit 41.9 % (39.0-52.0); Hemoglobin 13.7 g/dL (13.0-18.0); Mean Corp Hgb Conc. 32.7 g/dL (33.0-37.0); Mean Corpuscular Hgb 32.5 pg (27.0-31.0); Mean Corpuscular Volume 99.5 fL (80.0-94.0); Mean Platelet Volume 10.2 fL (7.4-10.4); Nucleated Red Blood Cells % 0 % (-); Platelet Count 269 10^3/uL (130-400); Red Blood Cell Count 4.21 10^6/uL (4.70-6.10); Red Cell Dist. Width 12.9 % (11.5-14.5); White Blood Cell Count 9.4 10^3/uL (4.8-10.8)
[2024-07-23 12:40] LABS: ALT (SGPT) 104 U/L (0-50); AST (SGOT) 70 U/L (17-59); Albumin 4.6 g/dl (3.5-5.0); Alkaline Phosphatase 115 U/L (38-126); Blood Urea Nitrogen 19 mg/dl (9-20); Calcium 9.3 mg/dl (8.4-10.2); Carbon Dioxide 24 mmol/L (22-30); Chloride 102 mmol/L (98-107); Glucose 150 mg/dl (70-99); Potassium 4.8 mmol/L (3.5-5.1); Sodium 138 mmol/L (135-145); Total Protein 6.9 g/dl (6.3-8.2); eGFR > 60.00
[2024-07-23] MEDS: TYLENOL/FEVERALL 650 MG RECTAL (12:51)
[2024-07-23] MEDS: HALDOL 1 MG IV (12:53)
[2024-07-23] MEDS: NSS 1000 IV ×2 (12:54→21:53)
[2024-07-23 13:14] LABS: Urine Albumin 1+ (Neg - Trace); Urine Bilirubin Negative (Negative); Urine Character Clear (Clear); Urine Color Yellow; Urine Glucose Negative (Negative); Urine Ketone Negative (Negative); Urine Leukocyte Negative (Negative); Urine Nitrite Negative (Negative); Urine Occult Blood 2+ (Negative); Urine Urobilinogen Negative (Neg - 1+)
[2024-07-23 13:27] LABS: Urine Squamous Cell 0-2 /LPF (Few)
[2024-07-23 13:28] LABS: Urine Bacteria Few (Negative); Urine White Cell 0-2 /HPF (0-5)
[2024-07-23] MEDS: MAXIPIME 2000 MG IV (14:16)
--- NOTE | 2024-07-23 14:33 | HPS.HSE ---
Family Physician
-
Family Physician: INTERVIEWE UNKNOWN - PT NOT
Chief Complaint
-
change in mental status
History of Present Illness
Patient is a 78-year-old male with past medical history significant for dementia, history of prolonged encephalopathy, hyperlipidemia, first-degree heart block, dysphagia with feeding tube and recurrent aspiration pneumonia who presented to [facility] ED
for evaluation of change in mental status. Patient at bedside who provided history are patient is unable to offer any history at this time r/t confusion and sleeping from recent Haldol administration for agitation. reports patient
discharged home Tuesday07/18/2024 from hospitalization for aspiration pneumonia and was discharged with 2 days of antibiotics which he completed Tuesday07/20/2024. He has been doing well since until yesterday evening she noticed patient had
increased restlessness, agitation and a lot of coughing. At some point overnight patient rolled out of bed to floor, unknown if he had a head strike and then this morning woke with low grade temp at home. reports giving Tylenol and patient went
back to sleep for a bit. When checking on him a little while later patient had more confusion, agitation, rigors and cough so she called EMS for transport to hospital.
Medical History
Past Medical History
Past Medical History: Reports Other
Additional Past Medical History:
dementia
history of prolonged encephalopathy
hyperlipidemia
first-degree heart block
recurrent aspiration pneumonia
dysphagia with feeding tube
hypoxia
hypertension
Hx CVA
Past Surgical History: Reports Other (No recent major surgery )
Social History
Unable to obtain full social history at this time due to: Dementia
Personal:
Living: With Family
Family History
Family History: Not pertinent
Allergies / Home Medications
Allergies reflects when Allergies were last updated in [employer].
Home Medications with original date entered in [employer]
Allergy/Medication List:
Allergies
Allergy/AdvReac Type Severity Reaction Status Date / Time
Sulfa (Sulfonamide Allergy Unknown Verified 07/14/24 10:30
Antibiotics)
Home Medications
metoprolol tartrate 50 mg tablet 50 mg PO DAILY Blood Pressure 05/20/24
thiamine HCl (vitamin B1) 100 mg tablet 100 mg PO QPM Supplement 06/22/24
atorvastatin 40 mg tablet 40 mg PO QPM High Cholesterol 06/23/24
aspirin 81 mg chewable tablet 81 mg PO DAILY Blood Clot Prevention/Tx 07/14/24
famotidine 20 mg tablet 20 mg PO DAILY Gastrointestinal Issue 07/14/24
Saccharomyces boulardii 250 mg capsule 250 mg PO BID #5 caps 07/18/24
Review of Systems
-
Unable to obtain full review of systems at this time due to: Dementia
History Source: Family
Constitutional: Reports Fever, Sleep Disturbance and Chills
Respiratory: Reports Cough and Trouble Breathing
Psych: Reports Dementia
Physical Exam
Vital Signs
Vital Signs
Temp Pulse Resp Pulse Ox
103.3 F H 80 18 96
07/23/24 12:25 07/23/24 14:00 07/23/24 12:30 07/23/24 13:38
Physical Exam
General: Well Nourished, No Apparent Distress and Poor Appetite
HEENT: NormoCephalic, Moist mucous membranes, Atraumatic, Nose Appears Normal, Ears Appear Normal and Hearing Impaired
Respiratory: Decreased Breath Sounds
Cardiac: S1/S2, Regular Rhythm and Tachycardia
Breast: Deferred by me
GI: Soft, Non Tender, Non Distended and Normal Bowel Sounds; No Organomegaly
Rectal: Deferred by Provider
Genito-urinary: Deferred by me
Musculoskeletal: No Clubbing, No Cyanosis and No Edema
Skin: IV/Catheter Site
Neuro: Sedated
Psych: Agitated and Apparent Dementia
Laboratory Results
-
07/23/24 12:12
07/23/24 12:12
Laboratory Results
Total Bilirubin 1.0 mg/dl (0.2-1.3) 07/23/24 12:12
AST 70 U/L (17-59) H 07/23/24 12:12
ALT 104 U/L (0-50) H 07/23/24 12:12
Alkaline Phosphatase 115 U/L (38-126) 07/23/24 12:12
Data Reviewed
-
Diagnostic Radiology: Report Reviewed by me (CXR: Parenchymal opacity within the left mid to lower lung and the medial right lower lung, likely representing bilateral pneumonia. No evidence for associated pleural effusion.)
CT Scan: Report Reviewed by me (Head: No evidence of acute intracranial abnormality. Small foci of decreased density within the left cerebellum, stable, compatible with small foci of old infarction. Mild diffuse atrophy.)
Medical Tests (Nuc Med, Echo, EKG etc): Report Reviewed by me (EKG: SINUS RHYTHM WITH 1ST DEGREE A-V BLOCK WITH PREMATURE ATRIAL COMPLEXES WITH Aberrant conduction)
Lab Data: Labs Reviewed by me (AST 70, ALT 104)
Impression/Plan
-
IMPRESSION/PLAN:
#change in mental status likely 2/2 bilateral lower lobe pneumonia
#dementia
#history of prolonged encephalopathy
#recurrent aspiration pneumonia
#dysphagia with feeding tube
Covid: negative
Influenza: negative
UA: not suggestive of UTI
Urine Cx: pending
Head CT: No evidence of acute intracranial abnormality.
Small foci of decreased density within the left cerebellum, stable, compatible with small foci of old infarction.
Mild diffuse atrophy.
CXR: Parenchymal opacity within the left mid to lower lung and the medial right lower lung, likely representing bilateral pneumonia. No evidence for associated pleural effusion.
- Admit to med/surg
- IV Vanco and Zosyn
- sputum culture
- Check strep antigen, MRSA, Legionella
- consult Speech
- NPO for now
- tube feedings QID with Jevity 1.5
#hyperlipidemia
#first-degree heart block
EKG: SINUS RHYTHM WITH 1ST DEGREE A-V BLOCK WITH PREMATURE ATRIAL COMPLEXES WITH
Aberrant conduction
#hypertension
- continue metoprolol
#Hx CVA
- continue aspirin
#transaminitis
AST 70, ALT 104
- monitor
#hypoxia
Code status: DNR
DVT prophylaxis: Lovenox sq
--- NOTE | 2024-07-23 15:17 | W.PN.UPDATE ---
Update Note
Progress Note Update
This is an addendum to the H&P written by Palak Davies on 07/23/2024.� Patient seen examined independently with [employer] CONTROL REPRESENTATIVE.
78-year-old male past medical history of dementia, prostate cancer, CVA, carotid stenosis status post left CEA, hypertension, hyperlipidemia, recurrent aspiration pneumonia, dysphagia with feeding tube, urinary retention, prediabetes, recently
admitted and discharged on 07/18 after being admitted for acute hypoxemia sepsis secondary to suspected aspiration pneumonia versus viral upper respiratory infection.�
He presents for change in mental status.� Still has cough.� Fell out of bed yesterday wandering on aimlessly.� Low-grade fever today.
Vital signs show fever 103.3.
Chest x-ray shows parenchymal opacity within the left mid to lower lung medial right lower lung likely bilateral pneumonia.� CT head shows small foci of decreased density within left cerebellum which is stable compatible with old infarction.
Labs show mild transaminitis.
COVID and influenza negative.
Patient with acute metabolic encephalopathy and sepsis secondary to bilateral lower lobe pneumonia.� Concern for recurrent aspiration pneumonia.� Check blood cultures.� Check strep antigen, MRSA, Legionella.� Check sputum culture.� IV fluids.�
Vancomycin/Zosyn. Check speech and swallow. Resume tube feeds.�
Patient was agitated and was given Haldol.� Now sleeping.�
[2024-07-23] MEDS: VANCOCIN 530 MG IV (15:29)
--- NOTE | 2024-07-23 15:56 | CM ---
CM met with pt and spouse bedside
[place]
Pt is indep with his ADLs, no DMEs
Is current with [facility] only, no therapy
PCP- Arabella Sethi
Rx- [facility]
Discharge Disposition- anticipate home with [facility]
[2024-07-23 16:23] LABS: INR 1.08; PT 14.3 Sec (11.4-14.6)
[2024-07-23 16:24] LABS: APTT 30.2 Sec (23.4-35.0)
[2024-07-23 16:33] LABS: Lactic Acid 0.9 mmol/L (0.7-2.0)
--- NOTE | 2024-07-23 20:30 | PTCARENOTE ---
Terese, pt's states that pt was cleared for soft diet & cl liqs in May 2024 and since that has been eating and taking flds (meds whole w/water).
terese states that there have been no choking episodes, and that she has continued bolus tube feeds for extra nutrition and to get his weight up; states meds not given through tube - takes all by mouth. Order noted for intermittent tube feeds of
Jevity 1.5. Adapter for his PEG not available at this time; did not bring from home. Will need to address in am.
--- NOTE | 2024-07-23 20:31 | PHA.VAN.IN ---
Assessment
- Assessment
Renal Function: Appears similar to baseline (07/18/24 BASELINE SCR: 0.6)
Concomitant Antimicrobials: ZOSYN
- Previous Dosing Experience
Previous Regimen: NONE
AUC Dosing Plan
- Dosing Variables
Dosing Weight (kg): 60
Dosing CrCl (ml/min): 73
Vd coefficient (L/kg): 0.7
- Empiric Dosing
Initial / Loading Dose: 1500MG
Maintenance Regimen: 750MG IV Q12H
Estimated AUC (mcg*h/mL): 567
Estimated Peak (mcg*h/mL): 33
Estimated Trough (mcg/ml): 16.1
Estimated Half Life (H): 10.7
Pharmacokinetics Vancomycin I
- -
Patient Age: 78
Patient Sex: Male
Vancomycin Day #: 1
Indication: Pulmonary/Respiratory
Requesting Provider: MAUREEN
Height / Weight:
Height 5 ft 6 in
Actual Weight 58.995 kg
Pertinent Past Medical History: PROSTATE CA
- Vital Signs / Lab Results
Temp Pulse Resp BP Pulse Ox
99.9 F 71 18 154/59 97
07/23/24 20:15 07/23/24 20:15 07/23/24 20:15 07/23/24 20:15 07/23/24 20:15
Lab Results - Hematology
07/23/24
12:12
WBC 9.4
Lab Results - Chemistry
07/23/24
12:12
BUN 19
Creatinine 0.7
Albumin 4.6
07/23/24 07/23/24
15:45 16:02
Lactic Acid Cancelled 0.9
Lab Results - Urine
07/23/24
12:59
Urine Nitrite (Reflex) Negative
Leukocyte Esterase Rfl Negative
Urine WBC (Reflex) 0-2
Ur Squamous Epith Cells 0-2
Urine Bacteria (Reflex) Few A
Microbiology Results
07/23/24 11:46 Influenza Types A & B (MERCED) - Final
Nasal Swab Negative for Influenza A & B, NAAT
Negative results must be combined with clinical observations
and patient history.
Nucleic Acid Amplification test (NAAT)performed on the
[employer] platform.
--- NOTE | 2024-07-23 21:15 | PTCARENOTE ---
Rec'd pt to floor @ approx 1999. Pt was sleeping, but easily arousable. Transferred to bed from stretcher. Shortly after transfer pt more awake and showing confusion as to place & time. Bed alarm placed on bed. Pt increasingly agitated and
attempting to get OOB repeatedly; not following instructions to return to bed. Angry @ times and cursing at staff. Yue DYE notified of same.
[2024-07-23] MEDS: FLORASTOR PO (22:00)
[2024-07-23] MEDS: VITAMIN B1 PO (22:00)
[2024-07-23] MEDS: LIPITOR PO (22:00)
[2024-07-23] MEDS: ZOSYN 100 IV (22:03)
[2024-07-23] MEDS: RISPERDAL M-TAB (ORALLY DISINTEGRATING) 0.5 MG PO (22:07)
[2024-07-23] MEDS: LOVENOX 40 MG SC (23:03)
--- NOTE | 2024-07-23 23:30 | PTCARENOTE ---
Lindseyerchucho given @ 4270. Pt now cooperative, however remains disoriented.
[2024-07-24] MEDS: ZOSYN 100 IV ×4 (02:49→19:29)
[2024-07-24] MEDS: VANCOCIN 150 IV ×2 (05:40→17:30)
--- NOTE | 2024-07-24 06:00 | PTCARENOTE ---
Since 0000 has been sleeping most of time. Coughing more; able to expectorate mod amts thick sheth sputum.
[2024-07-24 07:16] VITALS: BP 136/51
[2024-07-24 07:53] LABS: Hematocrit 37.1 % (39.0-52.0); Hemoglobin 12.3 g/dL (13.0-18.0); Mean Corp Hgb Conc. 33.2 g/dL (33.0-37.0); Mean Corpuscular Hgb 32.9 pg (27.0-31.0); Mean Corpuscular Volume 99.2 fL (80.0-94.0); Mean Platelet Volume 9.8 fL (7.4-10.4); Platelet Count 226 10^3/uL (130-400); Red Blood Cell Count 3.74 10^6/uL (4.70-6.10); Red Cell Dist. Width 12.9 % (11.5-14.5); White Blood Cell Count 9.9 10^3/uL (4.8-10.8)
[2024-07-24 08:15] VITALS: BMI 21.0
[2024-07-24 08:15] LABS: ALT (SGPT) 68 U/L (0-50); AST (SGOT) 40 U/L (17-59); Albumin 3.2 g/dl (3.5-5.0); Alkaline Phosphatase 89 U/L (38-126); Blood Urea Nitrogen 14 mg/dl (9-20); Calcium 8.5 mg/dl (8.4-10.2); Carbon Dioxide 24 mmol/L (22-30); Chloride 108 mmol/L (98-107); Estimated Creatinine Clearance 71 ml/min; Glucose 110 mg/dl (70-99); Potassium 4.1 mmol/L (3.5-5.1); Sodium 138 mmol/L (135-145); Total Bilirubin 0.9 mg/dl (0.2-1.3); Total Protein 5.6 g/dl (6.3-8.2); eGFR > 60.00
--- NOTE | 2024-07-24 08:15 | PHA.VAN.FU ---
Vancomycin Assessment / Plan
- Assessment
Renal Function: Stable
WBC's are: WNL
Concomitant Antimicrobials: piperacillin/tazobactam
- Dosing Plan
Continue: Vanc 750mg Q12H
- Monitoring Plan
No level(s) ordered at this time: consider levels in next few days
MRSA Screen: Ordered per protocol
- Follow Up
Pharmacy will continue to follow.
Vancomycin Follow UP
- -
Patient Age: 78
Patient Sex: Male
Vancomycin Day #: 2
Indication: Pulmonary/Respiratory
Requesting Provider: Eric Davies
Pertinent Antimicrobial Allergies:
sulfonamide antibiotics - unknown
Height / Weight:
Height 5 ft 6 in
Actual Weight 58.995 kg
Pertinent Past Medical History: PEG-J
- Vital Signs / Lab Results
Temp Pulse Resp BP Pulse Ox
98.0 F 69 18 127/51 98
07/23/24 23:57 07/23/24 23:57 07/23/24 23:57 07/23/24 23:57 07/23/24 23:57
Lab Results - Hematology
07/23/24 07/24/24
12:12 07:41
WBC 9.4 9.9
Lab Results - Chemistry
07/23/24 07/24/24
12:12 07:41
BUN 19 14
Creatinine 0.7 0.7
Estimated Creat Clear 71
Albumin 4.6 3.2 L
07/23/24 07/23/24
15:45 16:02
Lactic Acid Cancelled 0.9
Lab Results - Urine
07/23/24
12:59
Urine Nitrite (Reflex) Negative
Leukocyte Esterase Rfl Negative
Ur Squamous Epith Cells 0-2
Microbiology Results
07/24/24 01:38 Legionella Urinary Antigen - Final
Urine Negative for Legionella pneumophila Serogroup 1 antigen.
A negative result does not rule out the possiblity of
Legionella infection due to other serogroups or species of
Legionella. Clinical correlation is recommended.
Streptococcus pneumoniae Antigen (M - Final
Negative for Streptococcus pneumoniae antigen.
A negative result does not exclude infection with
Streptococcus pneumoniae. Clinical correlation is
recommended.
07/23/24 11:46 Influenza Types A & B (MERCED) - Final
Nasal Swab Negative for Influenza A & B, NAAT
Negative results must be combined with clinical observations
and patient history.
Nucleic Acid Amplification test (NAAT)performed on the
[employer] platform.
--- NOTE | 2024-07-24 08:30 | PTOTSP ---
Speech Language Pathology
Pt seen for clinical bedside swallow evaluation. Pt has been seeing this AMMONIUM NITRATE NEUTRALIZER for outpatient dysphagia tx since March 2024. Diet was slowly advanced from tsps of thin water at beginning of course of therapy up to regular solids/thin liquids on
06/07/24. No negative respiratory issues noted for some time. Pt was in ER / with COVID with clear CXR. Pt admitted 06/22-06/23 with ? mild L linguar PNA. Admitted end of June with sepsis secondary to aspiration PNA vs viral URI. CT chest findings
similar to admission earlier in month, and WBC WNL.
This date, P.O. trials of puree, regular solids, and thin liquids provided. Adequate mastication, bolus formation, and A-P transit noted with no oral residue. Occasional wet voice noted, which pt was able to clear with a cued throat
clear/reswallow. Consistently utilizing effortful swallows independently. Also seen with med pass with meds 1 at a time whole with liquids with RN. Wet voice in / meds with clearance with cued throat clear/reswallow.
CXR notes PNA. WBC again WNL. Possible there is another medical reason for repeated hospital admissions? Or that PNA is not clearing between admissions? Last VSE (in April) was significantly improved and pt was tolerating P.O. for some time.
Recommend:
(1) Regular solids/thin liquids
(2) Aspiration precautions: full supervision, cue for throat clear/reswallow if wet voice noted, slow rate, sit upright
(3) Meds whole with liquid as tolerated
(4) Continued outpatient AMMONIUM NITRATE NEUTRALIZER follow up. Will discuss need for repeat VSE as OP
(5) AMMONIUM NITRATE NEUTRALIZER to continue to follow
[2024-07-24] MEDS: NSS 1000 IV ×2 (08:41→17:46)
--- NOTE | 2024-07-24 08:41 | W.PN.HOSP.TC ---
Addendum entered and electronically signed by Staci Knutson MD, Resident 07/25/24 14:13:
Documented in error that NG tube was discontinued.
Peg tube feeds were discontinued yesterday.
Addendum entered and electronically signed by Demario Rodriguez MD 07/24/24 22:26:
Attending Addendum-
I saw and evaluated the patient. I reviewed the resident�s note and agree with findings and plan as documented in the resident�s note. Sub: Was agitated overnight and given haldol x 1. Patient not making any sense. Not agitated currently. Pleasant.
Word finding difficulty. Full 10 point ROS attempted but unable due to mental status. Exam: Vitals reviewed in chart GEN-NAD heart RRR lungs b/l LL rhonchi abd soft PEG tube in place LE no edema Neuro dysarthric word finding difficulty unable to
follow commands M/S 07/23
Plan:
#Acute TME/delirium from B/L LL PNA
#dementia
#recurrent aspiration pneumonia
#dysphagia with feeding tube
Covid: negative
Influenza: negative
UA: not suggestive of UTI
Urine Cx: pending
Blood cx- NGTD
Head CT: No evidence of acute intracranial abnormality.
Small foci of decreased density within the left cerebellum, stable, compatible with small foci of old infarction.
Mild diffuse atrophy.
CXR: Parenchymal opacity within the left mid to lower lung and the medial right lower lung, likely representing bilateral pneumonia
- transition from IV Vanco and Zosyn->Unasyn day # 2 abx
- sputum culture-P
- strep antigen, MRSA, Legionella-neg
- Speech rec advancing diet to reg/thin
- aspiration precautions
- tube feedings QID with Jevity 1.5 to supplement
- cont to monitor MS closely
- if no further improvement t/c MRI brain
# Agitation
- underlying vascular dementia likely
- prn antipsychotics
#Hyperlipidemia- cont atorvastatin
#First-degree heart block
#Hypertension- continue metoprolol
#Hx CVA- cont asa and atorvastatin
#Hx of carotid stenosis s/p left CEA
#transaminitis - resolving, CTM
#h/o prostate ca
#GERD - cont pepcid
Code status: DNR
DVT prophylaxis: Lovenox sq
Dispo eventual DC home with
ACP
Patient unable to consent to discuss, was with /POA, time spent explanation of advance directives, changes in health status, patient�s health care wishes if the patient becomes unable to make health decisions, goals of care, code status, and
prognosis- 16 minutes
Time spent coordinating care, review of plan of care with resident, personally reviewed previous records in EMR, med rec, labs, radiology, d/w nursing, family total time documented is exclusive of any additional time listed that was spent in advance
care planning discussion -�52 minutes
Original Note:
Today's Communication/Plan
-
Switch to unasyn
Assessment / Plan
Assessment / Plan
Bimujfulqv-75-bdpc-old male with PMHx significant for dementia, prolonged encephalopathy, dysphagia with PEG tube in place, first-degree AV block, recurrent aspiration pneumonia is admitted to the hospital for evaluation of fever and questionable
pneumonia.
Plan-
Acute delirium-
Multifactorial -confluence of dementia and baseline chronic metabolic encephalopathy.
Likely worsened secondary to bilateral lower lobe pneumonia from aspiration.
History of prolonged encephalopathy in the past.
Haldol for sundowning symptoms, and monitor for improvement.
Fever-
Likely from suspected pneumonia
No leukocytosis, tachycardia or tachypnea.
Blood culture x 2-pending, (drawn at separate times), lactate levels negative-0.9-no sepsis
history of recurrent aspiration pneumonias secondary to PEG tube placement.
Flu, COVID negative, Legionella antigen negative.
Sputum culture-pending.
Will change antibiotics to Unasyn, no history of MRSA in the past.
Vancomycin coverage not necessary.
UA negative for UTI, cultures pending.
Fever curve-afebrile after a single 103.3 temperature.
Continue to trend fever curves.
Hyperlipidemia-
On statin.
Dysphagia-
NG tube discontinued.
Speech therapy evaluation done, patient is cleared.
Diet advanced to solids and thin liquids.
Primary HTN -
On metoprolol, continue metoprolol
h/o TIA/ CVA -
On baby aspirin
DVT prophylaxis-
Heparin subcu.
CODE STATUS-
DNR.
Conditions BOILER TESTER-
Bilateral fat-containing inguinal hernias
History of Urinary retention:
urethral stricture
Prostrate cancer
History of peripheral vascular disease with carotid stenosis status post left CEA
Anticipated Discharge: > 48 hours
Subjective/Interval History
-
Date of Service: July 24, 2024
Ethan came off of NG tube in the a.m. today. He is sitting in the hallway and talking. He has severe word finding difficulty, but when we asked his she affirmed that it is common with delirium and it gets better as he improves.
Today he is pleasant oriented to his name and date of , but not oriented to time, person and place when examined on the bedside.
Patient is a poor historian, and unable to give history due to underlying baseline dementia and COVID induced chronic metabolic encephalopathy.
Objective Data
-
Labs:
Laboratory Results
07/24/24
07:41
WBC 9.9
Hgb 12.3 L
Hct 37.1 L
Plt Count 226
Sodium 138
Potassium 4.1
Chloride 108 H
Carbon Dioxide 24
BUN 14
Creatinine 0.7
Glucose 110 H
Calcium 8.5
Total Bilirubin 0.9
AST 40
ALT 68 H
Alkaline Phosphatase 89
Vital Signs:
Vital Signs
Temp Pulse Resp BP Pulse Ox
98.0 F 69 18 127/51 98
07/23/24 23:57 07/23/24 23:57 07/23/24 23:57 07/23/24 23:57 07/23/24 23:57
I&O
07/23/24 07/24/24 07/25/24
06:59 06:59 06:59
Intake Total 1050 / 1050
Output Total 200 / 200
Balance 850 / 850
Review of Systems
-
Unable to obtain full review of systems at this time due to: Dementia
Physical Exam
-
General: No Apparent Distress and Comfortable
HEENT: Moist Mucous Membranes; Negative Thrush
Respiratory: Clear to Auscultation (In bilateral upper lobes), Wheezes (In left lower lobe.) and Crackles (In right and left lower lobes.); Negative Rales or Rhonchi
Cardiac: Regular Rhythm and S1/S2; Negative Murmur, Rub or Gallop
GI: Soft, Nontender, Nondistended and Normal Bowel Sounds
Musculoskeletal: No Clubbing, No Cyanosis and No Edema
Neuro: Other (Word finding difficulty present, difficulty following commands, no dysdiadochokinesia, vieoxu-rg-kebo test negative, stoner to stoner test-difficult to follow, no pronator drift.); Negative AO x 3, No Motor Deficits or Facial Droop
Psych: Calm
Data Reviewed
-
Diagnostic Radiology: Image personally visualized and interpreted, Report Reviewed by me and Discussed with Physician
CT Scan: Image personally visualized and interpreted, Report Reviewed by me and Discussed with Physician
Labs: Labs Reviewed by me, Discussed with Physician and Discussed with Nurse
[2024-07-24] MEDS: FLORASTOR 250 MG PO ×2 (08:42→19:29)
[2024-07-24] MEDS: LOPRESSOR 50 MG PO (08:42)
[2024-07-24] MEDS: LOW STRENGTH ASPIRIN 81 MG PO (08:42)
[2024-07-24] MEDS: PEPCID 20 MG PO (08:42)
[2024-07-24 15:37] VITALS: BP 145/51
[2024-07-24] MEDS: VITAMIN B1 100 MG PO (17:31)
[2024-07-24] MEDS: LIPITOR 40 MG PO (17:31)
[2024-07-24] MEDS: LOVENOX 40 MG SC (17:31)
[2024-07-24] MEDS: RISPERDAL M-TAB (ORALLY DISINTEGRATING) 0.5 MG PO (20:54)
--- NOTE | 2024-07-24 22:27 | PTCARENOTE ---
pt transferred to 426- report given to 4W RN. pt taken in wheelchair with all belongings. pt getting increasingly agitated, notified covering [employer] PROFILER- x1 Risperdal given.
[2024-07-24 23:08] VITALS: BP 157/66
[2024-07-25] MEDS: NSS IV (04:07)
[2024-07-25 07:00] VITALS: BP 159/75
[2024-07-25 07:28] LABS: Glucose - Point of Care 123 mg/dl (70-99)
[2024-07-25] MEDS: UNASYN IV ×3 (07:58→20:33)
--- NOTE | 2024-07-25 08:23 | W.PN.HOSP.TC ---
Addendum entered and electronically signed by Demario Rodriguez MD 07/25/24 21:43:
Attending Addendum-
I saw and evaluated the patient. I reviewed the resident�s note and agree with findings and plan as documented in the resident�s note. Sub: patient not responding to commands. seen with present. appears to have chills. was febrile this am and
had 'choking episode' after attempting to eat. per 'hes just tired' Full 10 point ROS attempted but unable due to mental status. Exam: Vitals reviewed in chart GEN-NAD heart RRR lungs b/l LL rhonchi abd soft PEG tube in place LE no edema Neuro
unable to follow commands
Plan:
#Acute TME/delirium from B/L LL PNA
# underlying dementia
# recurrent aspiration pneumonia
# dysphagia with feeding tube
- recurrent fevers likely from aspiration
- repeat blood cx
- c/s ID for eval
Blood cx- NGTD
Head CT: No evidence of acute intracranial abnormality.
Small foci of decreased density within the left cerebellum, stable, compatible with small foci of old infarction.
Mild diffuse atrophy.
CXR: Parenchymal opacity within the left mid to lower lung and the medial right lower lung, likely representing bilateral pneumonia
- cont Unasyn day # 3 abx
- sputum culture-non diagnostic
- strep antigen, MRSA, Legionella-neg
- STRICT NPO- start IVF
- aspiration precautions
- restart tube feedings QID with Jevity 1.5
- cont to monitor MS closely
- check MRI brain
- overall poor prognosis
# Agitation
- underlying vascular dementia likely
- prn antipsychotics
#Hyperlipidemia- cont atorvastatin
#First-degree heart block
#Hypertension- continue metoprolol
#Hx CVA- cont asa and atorvastatin
#Hx of carotid stenosis s/p left CEA
#transaminitis - resolving, CTM
#h/o prostate ca
#GERD - cont pepcid
Code status: DNR
DVT prophylaxis: Lovenox sq
Dispo will likely require SNF on DC
Time spent coordinating care, review of plan of care with resident, personally reviewed records in EMR, med rec, consults, notes, labs, radiology, d/w nursing � 55 mins
Original Note:
Today's Communication/Plan
-
Patient made NPO.
Resume PEG tube feeds.
Administer all meds through PEG tubes.
Continue Unasyn. ID on board.
Monitor fever curve.
DuoNebs gecohv-nqi-ylvdw.
Assessment / Plan
Assessment / Plan
Apwmluymcb-51-byxz-old male with PMHx significant for dementia, prolonged encephalopathy, dysphagia with PEG tube in place, first-degree AV block, recurrent aspiration pneumonia is admitted to the hospital for evaluation of fever and questionable
pneumonia.
Plan-
Acute delirium-
Multifactorial -confluence of dementia and baseline chronic metabolic encephalopathy.
Likely worsened secondary to bilateral lower lobe pneumonia from aspiration.
History of prolonged encephalopathy in the past.
Currently acutely delirious. Waxing and waning episodes of delirium noted throughout hospitalization.
Will obtain brain MRI for further evaluation without contrast.
Sepsis-fever, tachycardia, tachypnea noted.
SIRS criteria met.
Likely secondary to aspiration pneumonia
IVF wide bolus, IVF maintenance fluids -
ID consulted for reevaluation of sepsis and fever.
Blood culture x 2 -24-hour prelim negative., lactate levels negative-0.9-no sepsis
History of recurrent aspiration pneumonias secondary to PEG tube placement.
Flu, COVID negative, Legionella antigen negative.
Sputum culture-pending.
UA negative for UTI, cultures pending.
Fever curve- Febrile at 102.9.
Patient made n.p.o. again.
Continue to trend fever curves.
Aspiration pneumonia-
Currently on Unasyn.
IV dexamethasone 4 mg twice daily, Mucinex and chest physiotherapy.
Continue suction of oral mucus.
DuoNebs zlwtac-qoz-wmqgd.
Patient made NPO.
Hyperlipidemia-
On statin.
Dysphagia-
PEG tube in place.
Made n.p.o.
Jevity tube feeds started.
Primary HTN -
On metoprolol, continue metoprolol
h/o TIA/ CVA -
On baby aspirin
DVT prophylaxis-
Heparin subcu.
CODE STATUS-
DNR.
Conditions ENTERTAINMENT & MEDIA CORRESPONDENT-
Bilateral fat-containing inguinal hernias
History of Urinary retention:
urethral stricture
Prostrate cancer
History of peripheral vascular disease with carotid stenosis status post left CEA
Anticipated Discharge: > 48 hours
Subjective/Interval History
-
Date of Service: July 25, 2024
Patient is not awake and alert. He is with fever, chills and rigors. Examined on bedside.
Had extensive conversation about PEG tube with patient's , also reviewed patient's plan with hospital tub operator and speech therapist.
Make patient NPO.
stated that the PEG tube was first placed in 11 November, after that he was discharged to SNF, and on several occasions he tried to pull it during his altered mental status, each time he was in the hospital and the PEG tube was replaced. Since
December 2023 his PEG tube stopped pulling his PEG tubes. Patient had 3 episodes of aspiration pneumonia in the last 2 months for which she is hospitalized. He had 1 ER visit for COVID in the last 3 months, before that his previous admission dates
to 2023.
Overnight, nurse(Jennifer) stated that patient has been stable and talking, he was moved rooms, but in the morning around 8 AM he started to have chills and fevers, but easily arousable. Not communicating verbally. Also is noted to have right groggy
cough, and nurse(Jennifer) reported to have suctioned about 5200 mL of copious yellow mucoid sputum from his throat.
Objective Data
-
Labs:
07/24/24 00:19 Respiratory Culture - Preliminary
Sputum Usual Respiratory Sarah
Gram Stain - Preliminary
07/24/24 14:39 Nasal Screen MRSA (PCR) - Final
Nose
07/23/24 16:02 Blood Culture - Preliminary
Blood/Venous No Growth in 24 hours- Final report to follow
07/23/24 12:12 Blood Culture - Preliminary
Blood/Venous No Growth in 24 hours- Final report to follow
07/24/24 01:38 Legionella Urinary Antigen - Final
Urine Negative for Legionella pneumophila Serogroup 1 antigen.
A negative result does not rule out the possiblity of
Legionella infection due to other serogroups or species of
Legionella. Clinical correlation is recommended.
Streptococcus pneumoniae Antigen (M - Final
Negative for Streptococcus pneumoniae antigen.
A negative result does not exclude infection with
Streptococcus pneumoniae. Clinical correlation is
recommended.
07/23/24 11:46 Influenza Types A & B (MERCED) - Final
Nasal Swab Negative for Influenza A & B, NAAT
Negative results must be combined with clinical observations
and patient history.
Nucleic Acid Amplification test (NAAT)performed on the
[employer] platform.
Vital Signs:
Vital Signs
Temp Pulse Resp BP Pulse Ox
98.1 F 77 20 157/66 98
07/24/24 23:08 07/24/24 23:08 07/24/24 23:08 07/24/24 23:08 07/24/24 23:08
I&O
07/24/24 07/25/24 07/26/24
06:59 06:59 06:59
Intake Total 1050 / 1050 480 / 480
Output Total 200 / 200
Balance 850 / 850 480 / 480
Review of Systems
-
Unable to obtain full review of systems at this time due to: Dementia and Acuity
Physical Exam
-
General: Pain, Fever and Chills
HEENT: Moist Mucous Membranes
Respiratory: Clear to Auscultation (In the upper lobes.), Wheezes (Bilateral lower lobes.) and Crackles (Right middle lobe, right lower lobe, left lower lobe.)
Cardiac: Regular Rhythm, S1/S2 and Tachycardic; Negative Murmur, Rub or Gallop
GI: Soft, Nontender, Nondistended, Normal Bowel Sounds and Peg Tube (Clean without drainage, nontender to touch. No surrounding erythema or edema, local rise of temperature.)
Genito-urinary: No Costovertebral Tender
Musculoskeletal: No Clubbing, No Cyanosis and No Edema
Skin: Warm
Neuro: Negative AO x 3
Hematologic / Lymphatic: No Lymphadenopathy
Psych: Confused
Data Reviewed
-
Labs: Labs Reviewed by me, Discussed with Physician and Discussed with Nurse
--- NOTE | 2024-07-25 08:30 | PTOTSP ---
Speech Language Pathology
Attempted to see pt for dysphagia tx. Notified by RN of fever and congestion. Pt lethargic upon arrival with no response to verbal or tactile stimulation. Not appropriate for dysphagia tx at this time. Recommend temporary NPO. Will consider VSE
as needed. Spoke with RN and resident. DRILL PRESS OPERATOR to continue to follow.
[2024-07-25] MEDS: TYLENOL/FEVERALL 650 MG RECTAL (08:35)
[2024-07-25] MEDS: LOW STRENGTH ASPIRIN PO (08:40)
[2024-07-25] MEDS: LOPRESSOR PO (08:40)
[2024-07-25] MEDS: PEPCID PO (08:40)
[2024-07-25] MEDS: FLORASTOR PO (08:40)
[2024-07-25] MEDS: LR 1000 IV ×2 (09:12→10:23)
--- NOTE | 2024-07-25 10:24 | PTCARENOTE ---
Received patient with Temp 102.8 axillary, congested cough with yellow sputum. Suctioned for moderate amt. Hospitalist notified. Rectal Tylenol given , temp down to 101.1. IV LR given as bolus, currently running at 60/hr. Speech aware and
patient made NPO . HOB up at all times . Will continue to assess and document .
[2024-07-25 10:34] LABS: % Basophils 0.2 % (0-2); % Immature Granulocytes 0.2 % (0-0.5); % Lymphocytes 16.8 % (20.5-51.1); % Monocytes 8.7 % (1.7-9.3); % Neutrophils 74.1 % (42.2-75.2); Absolute Lymphocytes 1.4 10^3/uL (1.2-3.4); Absolute Monocytes 0.7 10^3/uL (0.1-0.6); Absolute Neutrophils 6.2 10^3/uL (1.4-6.5); Hematocrit 34.8 % (39.0-52.0); Hemoglobin 11.7 g/dL (13.0-18.0); Mean Corp Hgb Conc. 33.6 g/dL (33.0-37.0); Mean Corpuscular Hgb 32.5 pg (27.0-31.0); Mean Corpuscular Volume 96.7 fL (80.0-94.0); Mean Platelet Volume 10.4 fL (7.4-10.4); Nucleated Red Blood Cells % 0 % (-); Platelet Count 240 10^3/uL (130-400); Red Cell Dist. Width 12.7 % (11.5-14.5); White Blood Cell Count 8.4 10^3/uL (4.8-10.8)
--- NOTE | 2024-07-25 10:36 | CM ---
Chart reviewed and patient is for possible discharge today, plan is to home with [facility].
[facility] [place]
[phone]

Plan; Home with spouse and [facility].
[2024-07-25 10:48] LABS: ALT (SGPT) 52 U/L (0-50); AST (SGOT) 30 U/L (17-59); Albumin 3.2 g/dl (3.5-5.0); Alkaline Phosphatase 89 U/L (38-126); Blood Urea Nitrogen 11 mg/dl (9-20); Calcium 8.6 mg/dl (8.4-10.2); Carbon Dioxide 26 mmol/L (22-30); Chloride 105 mmol/L (98-107); Estimated Creatinine Clearance 71 ml/min; Glucose 121 mg/dl (70-99); Potassium 3.8 mmol/L (3.5-5.1); Sodium 137 mmol/L (135-145); Total Bilirubin 0.8 mg/dl (0.2-1.3); Total Protein 5.5 g/dl (6.3-8.2); eGFR > 60.00
[2024-07-25 11:48] LABS: Glucose - Point of Care 111 mg/dl (70-99)
[2024-07-25 12:09] LABS: Lactic Acid 0.7 mmol/L (0.7-2.0)
[2024-07-25] MEDS: DUONEB 3 ML INH ×2 (14:50→19:39)
[2024-07-25 15:00] VITALS: BP 119/90
[2024-07-25] MEDS: TYLENOL ORAL SOLUTION 650 MG TUBE (15:14)
[2024-07-25] MEDS: DECADRON 4 MG IV (15:15)
[2024-07-25 16:44] LABS: Glucose - Point of Care 214 mg/dl (70-99)
[2024-07-25] MEDS: LIPITOR 40 MG TUBE (17:15)
[2024-07-25] MEDS: LOVENOX 40 MG SC (17:15)
[2024-07-25] MEDS: VITAMIN B1 100 MG TUBE (17:15)
[2024-07-25] MEDS: FLORASTOR 250 MG TUBE (20:34)
[2024-07-25 22:54] VITALS: BP 142/59
[2024-07-26] MEDS: RISPERDAL M-TAB (ORALLY DISINTEGRATING) 0.5 MG PO (00:03)
[2024-07-26] MEDS: DECADRON 4 MG IV ×2 (02:17→13:19)
[2024-07-26] MEDS: UNASYN IV ×4 (02:17→20:35)
[2024-07-26] MEDS: LR 1000 IV (02:17)
[2024-07-26 07:30] VITALS: BP 129/53
[2024-07-26] MEDS: DUONEB 3 ML INH ×4 (08:02→19:20)
[2024-07-26 08:06] LABS: % Basophils 0.1 % (0-2); % Immature Granulocytes 0.3 % (0-0.5); % Lymphocytes 17.5 % (20.5-51.1); % Monocytes 3.4 % (1.7-9.3); % Neutrophils 78.7 % (42.2-75.2); Absolute Lymphocytes 1.6 10^3/uL (1.2-3.4); Absolute Monocytes 0.3 10^3/uL (0.1-0.6); Absolute Neutrophils 7.1 10^3/uL (1.4-6.5); Hematocrit 36.4 % (39.0-52.0); Hemoglobin 11.9 g/dL (13.0-18.0); Mean Corp Hgb Conc. 32.7 g/dL (33.0-37.0); Mean Corpuscular Hgb 32.2 pg (27.0-31.0); Mean Corpuscular Volume 98.4 fL (80.0-94.0); Mean Platelet Volume 10.4 fL (7.4-10.4); Nucleated Red Blood Cells % 0 % (-); Platelet Count 224 10^3/uL (130-400); Red Cell Dist. Width 12.7 % (11.5-14.5); White Blood Cell Count 9.1 10^3/uL (4.8-10.8)
--- NOTE | 2024-07-26 08:11 | W.PN.HOSP.TC ---
Addendum entered and electronically signed by Demario Rodriguez MD 07/26/24 21:17:
Attending Addendum-
I saw and evaluated the patient. I reviewed the resident�s note and agree with findings and plan as documented in the resident�s note. Sub: patient more alert today. still not making sense. overnight was agitated and given Risperdal with pos effect.
seen with present who doesn't seem surprised by word finding difficulty. per 'hes getting back to normal. hell be fine. continue everything you're doing' Was febrile in last 24 hours. Full 10 point ROS attempted but unable due to mental
status. Exam: Vitals reviewed in chart GEN-NAD heart RRR lungs b/l coarse rhonchi abd soft PEG tube in place LE no edema Neuro broken speech not making sense moving all extremities
Plan:
#Acute TME/delirium from B/L LL aspiration PNA
# underlying dementia
# recurrent aspiration pneumonia
# dysphagia with feeding tube
- recurrent fevers likely from aspiration
- repeat blood cx-P
- appreciate ID input
- cont Unasyn x 7 day course
- sputum culture-non diagnostic
- strep antigen, MRSA, Legionella-neg
- STRICT NPO- DC IVF
- aspiration precautions
- cont tube feedings QID with Jevity 1.5
- cont to monitor MS closely
- check MRI brain
- overall poor prognosis hospice appropriate but refusing
# Agitation
- underlying vascular dementia likely
- prn antipsychotics
#Hyperlipidemia- cont atorvastatin
#First-degree heart block
#Hypertension- continue metoprolol
#Hx CVA- cont asa and atorvastatin
#Hx of carotid stenosis s/p left CEA
#transaminitis - resolved, CTM
#h/o prostate ca
#GERD - cont pepcid
Code status: DNR
DVT prophylaxis: Lovenox sq
Dispo will likely require SNF on DC overall poor prog
Time spent coordinating care, review of plan of care with resident, personally reviewed records in EMR, med rec, consults, notes, labs, radiology, d/w nursing and POA � 53 mins
Original Note:
Today's Communication/Plan
-
Discontinue dexamethasone, discontinue IV fluids.
Continue Jevity tube feeds, continue DuoNebs hznwfu-mnj-adwww.
Day 3 of antibiotics, day 2 of Unasyn.
ID consulted.
MRI pending.
Trend fever curve.
Assessment / Plan
Assessment / Plan
Rcslkowomm-63-yggv-old male with PMHx significant for dementia, prolonged encephalopathy, dysphagia with PEG tube in place, first-degree AV block, recurrent aspiration pneumonia is admitted to the hospital for evaluation of fever and questionable
pneumonia.
Plan-
Acute delirium-
Multifactorial -confluence of dementia and baseline chronic metabolic encephalopathy.
Likely worsened secondary to bilateral lower lobe pneumonia from aspiration.
History of prolonged encephalopathy in the past.
Currently acutely delirious. Waxing and waning episodes of delirium noted throughout hospitalization.
Pending MRI brain, patient is awake, and oriented to himself, place but not to time and person.
Sepsis-fever, tachycardia, tachypnea noted.
Resolved. Blood cultures pending.
Likely secondary to aspiration pneumonia
S/p IV fluids, currently IV fluids discontinued.
ID consulted for reevaluation of sepsis and fever.
Blood culture x 2 -24-hour prelim negative., lactate levels negative-0.9-no sepsis
History of recurrent aspiration pneumonias secondary to PEG tube placement.
Flu, COVID negative, Legionella antigen negative.
Sputum culture-pending.
UA negative for UTI, cultures pending.
Remains afebrile, continue to monitor fever curves.
Patient made n.p.o. again.
Continue to trend fever curves.
Aspiration pneumonia-
Currently on Unasyn, day 3 of antibiotics.
Discontinue dexamethasone, continue Mucinex
Oral suction as needed.
DuoNebs exctxu-vup-jfofh.
Patient made NPO.
Hyperlipidemia-
On statin.
Dysphagia-
PEG tube in place.
Made n.p.o.
Jevity tube feeds started.
Pending speech evaluation today.
Primary HTN -
On metoprolol, continue metoprolol
h/o TIA/ CVA -
On baby aspirin
DVT prophylaxis-
Heparin subcu.
CODE STATUS-
DNR.
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
Bilateral fat-containing inguinal hernias
History of Urinary retention:
urethral stricture
Prostrate cancer
History of peripheral vascular disease with carotid stenosis status post left CEA
Anticipated Discharge: 24 - 48 hours
Subjective/Interval History
-
Date of Service: July 26, 2024
Patient is awake, oriented to place and himself but not oriented to time or person. Could not obtain clear history given his dementia and lack of orientation.
Objective Data
-
Labs:
Laboratory Results
07/26/24
07:39
WBC 9.1
Hgb 11.9 L
Hct 36.4 L
Plt Count 224
Sodium Pending
Potassium Pending
Chloride Pending
Carbon Dioxide Pending
BUN Pending
Creatinine Pending
Glucose Pending
Calcium Pending
Vital Signs:
Vital Signs
Temp Pulse Resp BP Pulse Ox
98.2 F 86 18 142/59 99
07/25/24 22:54 07/26/24 08:06 07/26/24 08:06 07/25/24 22:54 07/26/24 08:06
I&O
07/25/24 07/26/24 07/27/24
06:59 06:59 06:59
Intake Total 480 / 480 2640 / 2640
Output Total 300 / 300
Balance 480 / 480 2340 / 2340
Review of Systems
-
Unable to obtain full review of systems at this time due to: Dementia and Acuity
Physical Exam
-
General: No Apparent Distress and Comfortable
HEENT: Moist Mucous Membranes
Respiratory: Clear to Auscultation, Wheezes (Across all lung lobes.) and Crackles (In bilateral lower lobes.); Negative Rales or Rhonchi
Cardiac: Regular Rhythm and S1/S2; Negative Murmur, Rub or Gallop
GI: Soft, Nontender, Nondistended and Normal Bowel Sounds
Genito-urinary: No Costovertebral Tender
Musculoskeletal: No Clubbing, No Cyanosis and No Edema
Skin: Warm
Neuro: No Motor Deficits and Nonfocal/Grossly Intact; Negative AO x 3
Psych: Calm
Data Reviewed
-
Medical Tests (Nuc Med, Echo etc): Image personally visualized and interpreted and Report Reviewed by me
Labs: Labs Reviewed by me, Discussed with Physician and Discussed with Nurse
[2024-07-26 08:22] LABS: Blood Urea Nitrogen 15 mg/dl (9-20); Calcium 8.9 mg/dl (8.4-10.2); Carbon Dioxide 30 mmol/L (22-30); Chloride 106 mmol/L (98-107); Estimated Creatinine Clearance 71 ml/min; Glucose 183 mg/dl (70-99); Potassium 5.2 mmol/L (3.5-5.1); Sodium 141 mmol/L (135-145); eGFR > 60.00
[2024-07-26] MEDS: FLORASTOR 250 MG TUBE ×2 (08:38→20:33)
[2024-07-26] MEDS: PEPCID 20 MG TUBE (08:39)
[2024-07-26] MEDS: LOW STRENGTH ASPIRIN 81 MG TUBE (08:39)
[2024-07-26] MEDS: LOPRESSOR 50 MG TUBE (08:40)
[2024-07-26 10:12] VITALS: BP 152/76; O2SAT 98
--- NOTE | 2024-07-26 11:20 | PTOTSP ---
Speech Language Pathology
Pt seen for dysphagia tx. Friend present at bedside. Pt awake and alert, confused conversation noted. On room air. Set pt up to brush teeth, and he was able to do so. Difficulty cognitively with spitting out into basin. Provided sips of thin
water with no overt difficulty noted. Given change in medical condition yesterday with MD suspicion that all related to aspiration:
Recommend:
(1) NPO
(2) Oral care 4x/day with suctioning as needed
(3) Allow sips of thin water post oral care given supervision per Aspiration Risk Hydration Protocol (ARHP)
(4) Meds via PEG
(5) Will consider repeat VSE once pt closer to baseline (still cognitively not at baseline)
(6) CARETAKER to continue to follow
--- NOTE | 2024-07-26 11:52 | CM ---
CM reviewed chart, patient seen bedside with friend visiting, receiving breathing treatment, reports patients will be in to visit later on. PT recommendations- home health- patient is current with [facility], will send updated clinicals upon
discharge. Resume tube feeds. CM will continue to follow for all discharge planning needs.
Plan; home with , DARBY Galvez JAY
[facility]:
--- NOTE | 2024-07-26 12:59 | CON.ID ---
Consultation
-
Date/Time Consultation Requested: 07/25/2024 1407
Date/Time Consultation Performed: 07/26/2024 1124
Requesting Provider: Dr. Small
Performing Provider: Dr. Mooney
Reason for Consultation: Fever
Chief Complaint / Past History
History of Present Illness
Ethan Wallace is a 78 yo male being evaluated in ID consult regarding fever. Hx obtained from chart review and pt interview.
The patient has a history of underlying dementia, along with dysphagia and recently was admitted to from 07/14 - 07/18 during which time he was treated for pneumonia. He was discharged on Augmentin, which continued through 07/20/2024.
He presents back to the emergency room on 07/23 for reported change in mental status. According to reviewed notes he had woken up and fell out of bed, and reportedly was wandering around his house. The ER notes that he had reported low-grade fever
while at home.
The patient was admitted and placed on empiric antibiotics. Despite antibiotics, the patient developed fever to 102.8 degrees yesterday. Infectious Diseases is asked to comment upon further antimicrobial therapy.
At the present time, the patient denies cough or congestion but nursing reports that he is producing copious amounts of sputum. Respiratory cultures thus far have revealed only usual respiratory sarah.
Past History
Additional Past Medical History:
Dementia
DM
Hx aspiration pneumonia
HLD
HTN
Hx prostate CA
Hx CVA
Additional Past Surgical History:
PEG
Left wrist surgery
Left foot surgery
Left CEA
Prostatectomy
Allergy History:
Sulfa (Sulfonamide Antibiotics) Allergy (Verified 07/14/24 10:30)
Unknown
Medications Reviewed: Yes
Current Antibiotics:
Unasyn 3 g IV every 6 hours
Social History
Tobacco: Former Smoker
Alcohol: Occasional
Drug: None
Personal:
Living: With Family
Family History
Family History: Not Pertinent
Review of Systems
Vital Signs
Temp Pulse Resp BP Pulse Ox
97.7 F 86 16 129/53 96
07/26/24 07:30 07/26/24 08:06 07/26/24 11:35 07/26/24 07:30 07/26/24 11:35
Physical Exam
Physical Exam
Constitutional: Comfortable, Chronically Ill and Non-toxic
Eyes: Pupils Equal, Pupils Round, No Conjunctival Hemorrhage and Sclera Anicteric
Oral: No Thrush and No Ulcers
Cardiovascular: Regular Rate and S1/S2; Negative S3/S4
Pulmonary: Rhonchi, Coarse and Non Labored
Gastrointestinal: Soft, Non Tender, Non Distended, Normal Bowel Sounds, No Rebound and No Guarding
Extremities: Negative Edema, Cyanosis or Erythema
Skin: Warm and Dry; Negative Rash or Jaundice
Neurological: Awake and Alert
Psychological: Calm
Lab / Diagnostic Study Results
07/26/24 07:39
07/26/24 07:39
Abs Immat Gran (auto) 0.0 10^3/uL (0-0.05) 07/26/24 07:39
Absolute Neuts (auto) 7.1 10^3/uL (1.4-6.5) H 07/26/24 07:39
Absolute Lymphs (auto) 1.6 10^3/uL (1.2-3.4) 07/26/24 07:39
Absolute Monos (auto) 0.3 10^3/uL (0.1-0.6) 07/26/24 07:39
Absolute Basos (auto) 0.0 10^3/uL (0-0.2) 07/26/24 07:39
Immature Gran % 0.3 % (0-0.5) 07/26/24 07:39
Neutrophils % 78.7 % (42.2-75.2) H 07/26/24 07:39
Lymphocytes % 17.5 % (20.5-51.1) L 07/26/24 07:39
Monocytes % 3.4 % (1.7-9.3) 07/26/24 07:39
Eosinophils % 0.0 % (0-6) 07/26/24 07:39
Basophils % 0.1 % (0-2) 07/26/24 07:39
PT 14.3 Sec (11.4-14.6) 07/23/24 16:02
INR 1.08 07/23/24 16:02
Lactic Acid 0.7 mmol/L (0.7-2.0) 07/25/24 09:50
Ur Squamous Epith Cells 0-2 /LPF (Few) 07/23/24 12:59
Microbiology Results
Micro:
07/23/24 12:12 Blood Culture - Preliminary
Blood/Venous No Growth in 72 hours- Final report to follow
07/24/24 00:19 Respiratory Culture - Final
Sputum Usual Respiratory Sarah
Gram Stain - Final
07/26/24 01:59 Blood Culture - Pending
Blood/Venous
07/25/24 23:57 Blood Culture - Pending
Blood/Venous
07/23/24 16:02 Blood Culture - Preliminary
Blood/Venous No Growth in 48 hours- Final report to follow
07/24/24 14:39 MRSA Screen - Final
Nose No Methicillin Resistant Staphylococcus aureus isolated.
07/24/24 14:39 Nasal Screen MRSA (PCR) - Final
Nose
07/24/24 01:38 Legionella Urinary Antigen - Final
Urine Negative for Legionella pneumophila Serogroup 1 antigen.
A negative result does not rule out the possiblity of
Legionella infection due to other serogroups or species of
Legionella. Clinical correlation is recommended.
Streptococcus pneumoniae Antigen (M - Final
Negative for Streptococcus pneumoniae antigen.
A negative result does not exclude infection with
Streptococcus pneumoniae. Clinical correlation is
recommended.
07/23/24 11:46 Influenza Types A & B (MERCED) - Final
Nasal Swab Negative for Influenza A & B, NAAT
Negative results must be combined with clinical observations
and patient history.
Nucleic Acid Amplification test (NAAT)performed on the
[employer] platform.
Imaging:
07/23/2024 CXR (portable): Parenchymal opacity within the left mid to lower lung in the medial right lower lung, likely representing bilateral pneumonia. No evidence for associated pleural effusion.
Assessment / Plan
Fever
Suspected recurrent aspiration PNA vs aspiration pneumonitis
Encephalopathy; suspect TME
Dementia
DM
Hx aspiration pneumonia
HLD
HTN
Hx prostate CA
Hx CVA
Recommendations:
Unfortunately, difficult situation given likely recurrence of aspiration, as even with strict aspiration precautions and making patient n.p.o., he will still likely suffer from recurrent aspiration of oral secretions.
At this time, patient is at least palliative care appropriate, if not hospice appropriate.
Continue with Unasyn for today. Course of antibiotics is somewhat undefined, but would consider completing a 5 to 7-day course.
[2024-07-26 15:20] VITALS: BP 109/60
[2024-07-26] MEDS: LOVENOX 40 MG SC (17:34)
[2024-07-26] MEDS: LIPITOR 40 MG TUBE (17:34)
[2024-07-26] MEDS: VITAMIN B1 100 MG TUBE (17:34)
[2024-07-26 23:10] VITALS: BP 141/59
[2024-07-27] MEDS: UNASYN IV ×4 (02:35→21:37)
[2024-07-27 07:35] VITALS: BP 159/66
[2024-07-27] MEDS: DUONEB 3 ML INH ×4 (07:45→20:24)
[2024-07-27 08:02] LABS: % Basophils 0.1 % (0-2); % Immature Granulocytes 0.3 % (0-0.5); % Lymphocytes 17.5 % (20.5-51.1); % Monocytes 6.5 % (1.7-9.3); % Neutrophils 75.6 % (42.2-75.2); Absolute Lymphocytes 1.8 10^3/uL (1.2-3.4); Absolute Monocytes 0.7 10^3/uL (0.1-0.6); Absolute Neutrophils 7.9 10^3/uL (1.4-6.5); Hematocrit 34.6 % (39.0-52.0); Hemoglobin 11.5 g/dL (13.0-18.0); Mean Corp Hgb Conc. 33.2 g/dL (33.0-37.0); Mean Corpuscular Hgb 32.2 pg (27.0-31.0); Mean Corpuscular Volume 96.9 fL (80.0-94.0); Mean Platelet Volume 10.8 fL (7.4-10.4); Nucleated Red Blood Cells % 0 % (-); Platelet Count 238 10^3/uL (130-400); Red Blood Cell Count 3.57 10^6/uL (4.70-6.10); Red Cell Dist. Width 12.7 % (11.5-14.5); White Blood Cell Count 10.5 10^3/uL (4.8-10.8)
[2024-07-27 08:30] LABS: Blood Urea Nitrogen 21 mg/dl (9-20); Calcium 8.7 mg/dl (8.4-10.2); Carbon Dioxide 29 mmol/L (22-30); Chloride 108 mmol/L (98-107); Estimated Creatinine Clearance 83 ml/min; Glucose 114 mg/dl (70-99); Potassium 4.1 mmol/L (3.5-5.1); Sodium 144 mmol/L (135-145); eGFR > 60.00
[2024-07-27] MEDS: FLORASTOR 250 MG TUBE ×2 (09:41→21:37)
[2024-07-27] MEDS: LOPRESSOR 50 MG TUBE (09:41)
[2024-07-27] MEDS: LOW STRENGTH ASPIRIN 81 MG TUBE (09:42)
[2024-07-27] MEDS: PEPCID 20 MG TUBE ×2 (09:42→15:31)
[2024-07-27 10:35] VITALS: BP 156/63; PULSE 79
--- NOTE | 2024-07-27 10:40 | W.PN.ID1 ---
Date of Service
Date of Service: July 27, 2024
Today's Communication
Continue antibiotics. See below�
Assessment / Plan
Fever
Suspected recurrent aspiration PNA +/- aspiration pneumonitis
Encephalopathy; suspect TME
Dementia
DM
Hx aspiration pneumonia
HLD
HTN
Hx prostate CA
Hx CVA
Recommendations:
Unfortunately, difficult situation given likely recurrence of aspiration, as even with strict aspiration precautions and making patient n.p.o., he will still likely suffer from recurrent aspiration of oral secretions.
At this time, patient is at least palliative care appropriate, if not hospice appropriate. Review of notes indicates patient's is resistant to hospice care.
Continue with Unasyn for today. Course of antibiotics is somewhat undefined, but would consider completing a 5 to 7-day course. Can transition to Augmentin suspension via PEG at discharge.
Continue with aspiration precautions.
����������������������������������������������������������
Chief Complaint
-: Fever
Subjective / Review of Systems
Review of Systems: No Fever, No Chills, Cough and Sputum Production
Vital Signs / Physical Exam
Vital Signs
Vital Signs
Temp Pulse Resp BP Pulse Ox
98.5 F 96 16 159/66 97
07/27/24 07:35 07/27/24 07:51 07/27/24 07:51 07/27/24 07:35 07/27/24 07:51
Physical Exam
Constitutional: No Acute Distress, Comfortable, Chronically Ill and Non-toxic
Cardiovascular: S1/S2; Negative S3/S4
Pulmonary: Rhonchi (Few; scattered) and Coarse
Gastrointestinal: Soft, Non Tender, Non Distended and Other (PEG tube in place)
Neurological: Awake and Alert
Psychological: Confused
Objective Data
Lab Data
Lab Results
07/27/24 07:15
07/27/24 07:15
PT 14.3 Sec (11.4-14.6) 07/23/24 16:02
INR 1.08 07/23/24 16:02
APTT 30.2 Sec (23.4-35.0) 07/23/24 16:02
Estimated Creat Clear 83 ml/min 07/27/24 07:15
Lactic Acid 0.7 mmol/L (0.7-2.0) 07/25/24 09:50
Total Bilirubin 0.8 mg/dl (0.2-1.3) 07/25/24 09:50
AST 30 U/L (17-59) 07/25/24 09:50
ALT 52 U/L (0-50) H 07/25/24 09:50
Alkaline Phosphatase 89 U/L (38-126) 07/25/24 09:50
Most recent labs reviewed.
Micro Results:
07/26/24 01:59 Blood Culture - Preliminary
Blood/Venous No Growth in 24 hours- Final report to follow
07/25/24 23:57 Blood Culture - Preliminary
Blood/Venous No Growth in 24 hours- Final report to follow
07/23/24 16:02 Blood Culture - Preliminary
Blood/Venous No Growth in 72 hours- Final report to follow
07/23/24 12:12 Blood Culture - Preliminary
Blood/Venous No Growth in 72 hours- Final report to follow
07/24/24 00:19 Respiratory Culture - Final
Sputum Usual Respiratory Sarah
Gram Stain - Final
07/24/24 14:39 MRSA Screen - Final
Nose No Methicillin Resistant Staphylococcus aureus isolated.
07/24/24 14:39 Nasal Screen MRSA (PCR) - Final
Nose
07/24/24 01:38 Legionella Urinary Antigen - Final
Urine Negative for Legionella pneumophila Serogroup 1 antigen.
A negative result does not rule out the possiblity of
Legionella infection due to other serogroups or species of
Legionella. Clinical correlation is recommended.
Streptococcus pneumoniae Antigen (M - Final
Negative for Streptococcus pneumoniae antigen.
A negative result does not exclude infection with
Streptococcus pneumoniae. Clinical correlation is
recommended.
07/23/24 11:46 Influenza Types A & B (MERCED) - Final
Nasal Swab Negative for Influenza A & B, NAAT
Negative results must be combined with clinical observations
and patient history.
Nucleic Acid Amplification test (NAAT)performed on the
[employer] platform.
Imaging:
07/23/2024 CXR (portable): Parenchymal opacity within the left mid to lower lung in the medial right lower lung, likely representing bilateral pneumonia. No evidence for associated pleural effusion.
--- NOTE | 2024-07-27 12:50 | CM ---
CM reviewed chart, reviewed with Nurse. Patient seen bedside with , Terese. Per , patient was completely ambulatory at home, no device used, was weed whacking, helping with museum technician. confirms patient is current with [facility],
tube feeds supplied by [facility]. Patient will need resumption of tube feeds prior to hospitalization documented prior to d/c to send to [facility]. ID following. CM will continue to follow for all discharge planning needs.
Plan; home with , DARBY [facility], resume tube feeds [facility]:

[facility] Tube Feeds
--- NOTE | 2024-07-27 13:35 | W.PN.HOSP.TC ---
Addendum entered and electronically signed by Demario Rodriguez MD 07/27/24 20:08:
Attending Addendum-
I saw and evaluated the patient. I reviewed the resident�s note and agree with findings and plan as documented in the resident�s note. Sub: patient alert today. making a little more sense. seen with present who states he has reflux. 'lets give
him another day and he'll be fine' Full 10 point ROS limited due to word finding difficulty. Exam: Vitals reviewed in chart GEN-NAD heart RRR lungs b/l coarse rhonchi abd soft PEG tube in place LE no edema Neuro broken speech intermittently making
sense moving all extremities
Plan:
#Acute TME/delirium from aspiration PNA
# underlying dementia
# recurrent aspiration pneumonia
# dysphagia with feeding tube
- repeat blood cx-NGTD
- appreciate ID input
- cont Unasyn/Augmentin x 7 day course
- sputum culture-non diagnostic
- STRICT NPO
- aspiration precautions
- cont tube feedings QID with Jevity 1.5
- MRI brain 07/27- No acute infarct. Stable examination. Few small chronic cerebellar infarcts. Mild chronic ischemic change. No mass effect.
- overall poor prognosis hospice appropriate but refusing
# Agitation
- underlying vascular dementia
- prn antipsychotics
#Hyperlipidemia- cont atorvastatin
#First-degree heart block
#Hypertension- continue metoprolol
#Hx CVA- cerebellar-cont asa and atorvastatin
#Hx of carotid stenosis s/p left CEA
#transaminitis - resolved, CTM
#h/o prostate ca
#GERD - cont pepcid
Code status: DNR
DVT prophylaxis: Lovenox sq
Dispo- DC planning- DC home with in AM- high risk readmission - poor prognosis
Time spent coordinating care, review of plan of care with resident, personally reviewed records in EMR, med rec, consults, notes, labs, radiology, d/w nursing and POA � 51 mins
Original Note:
Today's Communication/Plan
-
Increase famotidine dose to 40 mg beginning a.m. tomorrow.
Give an additional dose of famotidine 20 mg stat now.
Continue IV Unasyn.
DuoNebs as needed, changed from standing dose.
Assessment / Plan
Assessment / Plan
Srvpauzwgx-89-ghcf-old male with PMHx significant for dementia, prolonged encephalopathy, dysphagia with PEG tube in place, first-degree AV block, recurrent aspiration pneumonia is admitted to the hospital for evaluation of fever and questionable
pneumonia.
Plan-
Acute delirium-
Multifactorial -confluence of dementia and baseline chronic metabolic encephalopathy.
Likely worsened secondary to bilateral lower lobe pneumonia from aspiration.
History of prolonged encephalopathy in the past.
Currently acutely delirious. Waxing and waning episodes of delirium noted throughout hospitalization.
MRI brain-chronic cerebellar infarcts with no acute changes noted.-07/26/2024.
Sepsis-fever, tachycardia, tachypnea noted.
Resolved. Blood cultures no growth-in first 24 hours, preliminary blood cultures obtained about 4 days prior on day of admission showed no growth. Respiratory culture-showed usual respiratory mohan, urine Legionella antigen negative strep
pneumonia antigen negative.
Likely secondary to aspiration pneumonia
S/p IV fluids, currently IV fluids discontinued.
ID consulted for reevaluation of sepsis and fever.
Blood culture x 2 -24-hour prelim negative., lactate levels negative-0.9-no sepsis
History of recurrent aspiration pneumonias secondary to PEG tube placement.
Flu, COVID negative,
UA negative for UTI, cultures pending.
Remains afebrile, continue to monitor fever curves.
Patient made n.p.o. again. Speech recommends continued n.p.o.
Continue to trend fever curves.
Aspiration pneumonia-
Currently on Unasyn, day 3 of antibiotics.
continue Mucinex
Oral suction as needed.
DuoNebs [id number].
Patient made NPO.
Hyperlipidemia-
On statin.
Dysphagia-
PEG tube in place.
Made n.p.o.
Jevity tube feeds started as prior to hospitalization.
Patient to resume tube feeds as prior to hospitalization after discharge.
Pending speech evaluation today.
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
Pepcid dose bumped to 40 mg.
Primary HTN -
On metoprolol, continue metoprolol
h/o TIA/ CVA -
On baby aspirin
DVT prophylaxis-
Heparin subcu.
CODE STATUS-
DNR.
Conditions CIRCULATOR-
Bilateral fat-containing inguinal hernias
History of Urinary retention:
urethral stricture
Prostrate cancer
History of peripheral vascular disease with carotid stenosis status post left CEA
Anticipated Discharge: Within 24 hours
Subjective/Interval History
-
Date of Service: July 27, 2024
Ethan is complaining of reflux per his . He did not verbalize any complaints when I saw him bedside. Child's is concerned that his baseline mental status is still not back yet.
Objective Data
-
Labs:
Laboratory Results
07/27/24
07:15
WBC 10.5
Hgb 11.5 L
Hct 34.6 L
Plt Count 238
Sodium 144
Potassium 4.1
Chloride 108 H
Carbon Dioxide 29
BUN 21 H
Creatinine 0.6 L
Glucose 114 H
Calcium 8.7
Vital Signs:
Vital Signs
Temp Pulse Resp BP Pulse Ox
98.5 F 82 16 159/66 98
07/27/24 07:35 07/27/24 11:15 07/27/24 11:15 07/27/24 07:35 07/27/24 11:15
I&O
05/11/1207/27/24 07/28/24
06:59 06:59 06:59
Intake Total 2640 / 2640 1820 / 1820
Output Total 300 / 300 850 / 850
Balance 2340 / 2340 970 / 970
Review of Systems
-
Unable to obtain full review of systems at this time due to: Dementia
History Source: Family
Constitutional: Reports No Symptoms
EENT: Reports No Symptoms Reported
Respiratory: Reports No Symptoms
Cardiac: Reports No Symptoms
Abdomen/GI: Reports GERD
Breast: Reports No Symptoms
Genitourinary: Reports No Symptoms
Musculoskeletal: Reports No Symptoms
Skin: Reports No Symptoms
Neuro: Reports No Symptoms
Endocrine: Reports No Symptoms
Hematologic / Lymphatic: Reports No Symptoms
Physical Exam
-
General: No Apparent Distress and Comfortable
HEENT: Moist Mucous Membranes
Respiratory: Clear to Auscultation (In bilateral upper lobes, and right middle lobe.), Wheezes (Mild wheezing in bilateral lower lobes on expiration.) and Crackles (Bilateral lower lobe crackles heard.); Negative Rales or Rhonchi
Cardiac: Regular Rhythm and S1/S2; Negative Murmur or Rub
GI: Soft, Nontender, Nondistended and Normal Bowel Sounds
Musculoskeletal: No Clubbing, No Cyanosis and No Edema
Skin: Warm
Neuro: Awake, Alert and Oriented (Oriented to himself, place, person but not to time.)
Psych: Calm
Data Reviewed
-
Labs: Labs Reviewed by me, Discussed with Physician and Discussed with Nurse
[2024-07-27 15:25] VITALS: BP 140/43
[2024-07-27] MEDS: LOVENOX 40 MG SC (16:00)
[2024-07-27] MEDS: VITAMIN B1 100 MG TUBE (16:00)
[2024-07-27] MEDS: LIPITOR 40 MG TUBE (16:00)
[2024-07-27 23:34] VITALS: BP 161/76
[2024-07-28] MEDS: UNASYN IV ×4 (02:53→20:33)
[2024-07-28 07:00] VITALS: BP 160/72
[2024-07-28 07:33] LABS: Glucose - Point of Care 90 mg/dl (70-99)
[2024-07-28] MEDS: DUONEB 3 ML INH ×3 (07:33→20:24)
[2024-07-28] MEDS: LOPRESSOR 50 MG TUBE (08:23)
[2024-07-28] MEDS: LOW STRENGTH ASPIRIN 81 MG TUBE (08:23)
[2024-07-28] MEDS: FLORASTOR 250 MG TUBE ×2 (08:23→20:32)
[2024-07-28] MEDS: PEPCID 40 MG TUBE (08:23)
[2024-07-28] MEDS: DUONEB INH (11:06)
[2024-07-28 11:12] LABS: % Basophils 0.2 % (0-2); % Eosinophils 0.6 % (0-6); % Immature Granulocytes 0.4 % (0-0.5); % Lymphocytes 25.6 % (20.5-51.1); % Monocytes 6.8 % (1.7-9.3); % Neutrophils 66.4 % (42.2-75.2); Absolute Eosinophils 0.1 10^3/uL (0-0.7); Absolute Lymphocytes 2.1 10^3/uL (1.2-3.4); Absolute Monocytes 0.6 10^3/uL (0.1-0.6); Absolute Neutrophils 5.4 10^3/uL (1.4-6.5); Hematocrit 33.4 % (39.0-52.0); Hemoglobin 10.9 g/dL (13.0-18.0); Mean Corp Hgb Conc. 32.6 g/dL (33.0-37.0); Mean Corpuscular Hgb 31.8 pg (27.0-31.0); Mean Corpuscular Volume 97.4 fL (80.0-94.0); Mean Platelet Volume 10.6 fL (7.4-10.4); Nucleated Red Blood Cells % 0 % (-); Platelet Count 241 10^3/uL (130-400); Red Blood Cell Count 3.43 10^6/uL (4.70-6.10); Red Cell Dist. Width 12.9 % (11.5-14.5); White Blood Cell Count 8.1 10^3/uL (4.8-10.8)
[2024-07-28 11:45] LABS: Blood Urea Nitrogen 20 mg/dl (9-20); Calcium 8.2 mg/dl (8.4-10.2); Carbon Dioxide 25 mmol/L (22-30); Chloride 106 mmol/L (98-107); Estimated Creatinine Clearance 83 ml/min; Glucose 95 mg/dl (70-99); Potassium 4.1 mmol/L (3.5-5.1); Sodium 140 mmol/L (135-145); eGFR > 60.00
[2024-07-28] MEDS: RISPERDAL M-TAB (ORALLY DISINTEGRATING) 0.5 MG TUBE ×2 (11:47→22:05)
--- NOTE | 2024-07-28 11:59 | PTCARENOTE ---
Patient agitated and restless. Can't be redirected. Sitting in chair at nurses station. One time dose of Risperdal given. Continue to monitor.
[2024-07-28 12:19] LABS: Glucose - Point of Care 149 mg/dl (70-99)
--- NOTE | 2024-07-28 13:22 | W.PN.HOSP.TC ---
Today's Communication/Plan
-
Monitor vitals
See plan
Agitated this morning, required Risperdal
Discussed with spouse, she understands patient declining status and does not want hospice at this time.
Continue antibiotic
monitor mental status
NPO
tube feeds
Assessment / Plan
Assessment / Plan
Rlrabgmdha-[id number]-ixuk-old male with PMHx significant for dementia, prolonged encephalopathy, dysphagia with PEG tube in place, first-degree AV block, recurrent aspiration pneumonia is admitted to the hospital for evaluation of fever and questionable
pneumonia.
Plan-
Acute delirium-
Multifactorial -confluence of dementia and baseline chronic metabolic encephalopathy. could also be hopsital aquired
Likely worsened secondary to bilateral lower lobe pneumonia from aspiration.
History of prolonged encephalopathy in the past.
Currently acutely delirious. Waxing and waning episodes of delirium noted throughout hospitalization. Dose of Risperdal given today. If symptoms do not improve then will need psychiatry evaluation. Discussed with spouse, used to be seen by
Luz
MRI brain-chronic cerebellar infarcts with no acute changes noted.-07/26/2024.
Patient is not safe to drive, spouse aware and ensure that patient is not driving.
Sepsis-fever, tachycardia, tachypnea noted.
Resolved. Blood cultures no growth-in first 24 hours, preliminary blood cultures obtained about 4 days prior on day of admission showed no growth. Respiratory culture-showed usual respiratory mohan, urine Legionella antigen negative strep
pneumonia antigen negative.
Likely secondary to aspiration pneumonia
S/p IV fluids, currently IV fluids discontinued.
ID consulted for reevaluation of sepsis and fever.
Blood culture x 2 -24-hour prelim negative., lactate levels negative-0.9-no sepsis
History of recurrent aspiration pneumonias secondary to PEG tube placement.
Flu, COVID negative,
UA negative for UTI, cultures pending.
Remains afebrile, continue to monitor fever curves.
Patient made n.p.o. again. Speech recommends continued n.p.o.
Continue to trend fever curves.
Aspiration pneumonia-
Currently on Unasyn, day 3 of antibiotics.
continue Mucinex
Oral suction as needed.
DuoNebs [id number].
Patient made NPO.
Hyperlipidemia-
On statin.
Dysphagia-
PEG tube in place.
Made n.p.o.
Jevity tube feeds started as prior to hospitalization.
Patient to resume tube feeds as prior to hospitalization after discharge.
Pending speech evaluation today.
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
Pepcid dose bumped to 40 mg.
Primary HTN -
On metoprolol, continue metoprolol
h/o TIA/ CVA -
On baby aspirin
DVT prophylaxis-
Heparin subcu.
CODE STATUS-
DNR.
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
Bilateral fat-containing inguinal hernias
History of Urinary retention:
urethral stricture
Prostrate cancer
History of peripheral vascular disease with carotid stenosis status post left CEA
Acute TME/delirium from aspiration PNA
Currently acutely delirious. Waxing and waning episodes of delirium noted throughout hospitalization. Dose of Risperdal given today. If symptoms do not improve then will need psychiatry evaluation. Discussed with spouse, used to be seen by Dr.
Luz
# underlying dementia
# recurrent aspiration pneumonia
# dysphagia with feeding tube
- repeat blood cx-NGTD
- appreciate ID input
- cont Unasyn/Augmentin x 7 day course
- sputum culture-non diagnostic
- STRICT NPO
- aspiration precautions
- cont tube feedings QID with Jevity 1.5
- MRI brain 07/27- No acute infarct. Stable examination. Few small chronic cerebellar infarcts. Mild chronic ischemic change. No mass effect.
- overall poor prognosis hospice appropriate but refusing
# Agitation
- underlying vascular dementia
- antipsychotics intermittently; spouse doesnt want meds on dc
#Hyperlipidemia- cont atorvastatin
#First-degree heart block
#Hypertension- continue metoprolol
#Hx CVA- cerebellar-cont asa and atorvastatin
#Hx of carotid stenosis s/p left CEA
#transaminitis - resolved, CTM
#h/o prostate ca
#GERD - cont pepcid
Code status: DNR
DVT prophylaxis: Lovenox sq
General: No Apparent Distress and Comfortable
HEENT: Moist Mucous Membranes
Respiratory: Clear to Auscultation (In bilateral upper lobes, and right middle lobe.), Wheezes (Mild wheezing in bilateral lower lobes on expiration.) and Crackles (Bilateral lower lobe crackles heard.)
Cardiac: Regular Rhythm and S1/S2; Negative Murmur or Rub
GI: Soft, Nontender, Nondistended and Normal Bowel Sounds
Musculoskeletal: No Clubbing, No Cyanosis and No Edema
Skin: Warm
Neuro: Awake, Alert and Oriented (Oriented to himself, place, person but not to time.)
Psych: agitated
Anticipated Discharge: Within 24 hours
Subjective/Interval History
-
Date of Service: July 28, 2024
Agitated this morning
Objective Data
-
Labs:
Laboratory Results
07/28/24
09:38
WBC 8.1
Hgb 10.9 L
Hct 33.4 L
Plt Count 241
Sodium 140
Potassium 4.1
Chloride 106
Carbon Dioxide 25
BUN 20
Creatinine 0.6 L
Glucose 95
Calcium 8.2 L
Vital Signs:
Vital Signs
Temp Pulse Resp BP Pulse Ox
98.8 F 81 17 160/72 96
07/28/24 07:00 07/28/24 08:23 07/28/24 07:39 07/28/24 07:00 07/28/24 08:00
I&O
07/27/24 07/28/24 07/29/24
06:59 06:59 06:59
Intake Total 1820 / 1820 1740 / 1740
Output Total 850 / 850 600 / 600
Balance 970 / 970 1140 / 1140
--- NOTE | 2024-07-28 13:35 | CM ---
CM reviewed chart, patient seen bedside with . inquiring if OT can work with patient, inquiring if PT worked on steps with patient as there are about 10-12 steps in home, will TT PT/OT, patient will require OT orders. Per chart, patient
agitated/restless earlier in day. confirms she provides tube feeds to patient, will fax to [facility] to resume tube feeds upon discharge, spoke with senior manager mergers & acquisitions at [facility], confirmed patient had recently delivery, will require resumption
orders upon d/c. CM will continue to follow for all discharge planning needs.
Plan: home with , DARBY Galvez , DARBY tube feed [facility]:

[facility] Tube Feeds
[2024-07-28 16:30] LABS: Glucose - Point of Care 130 mg/dl (70-99)
[2024-07-28 16:45] VITALS: BP 129/49
[2024-07-28] MEDS: VITAMIN B1 100 MG TUBE (17:04)
[2024-07-28] MEDS: LIPITOR 40 MG TUBE (17:04)
[2024-07-28] MEDS: LOVENOX 40 MG SC (17:04)
--- NOTE | 2024-07-28 18:35 | PTCARENOTE ---
patient agitated and restless along with combativeness again. Attempted to pull out Peg tube and ripped out IV. Hospitalist aware and ordered Risperdal through peg for tonight. Will continue to monitor behavior.
[2024-07-28 21:59] LABS: Glucose - Point of Care 128 mg/dl (70-99)
[2024-07-28 23:03] VITALS: BP 145/87
[2024-07-29] MEDS: UNASYN IV ×2 (01:54→08:21)
[2024-07-29 07:00] VITALS: BP 163/65
[2024-07-29] MEDS: DUONEB 3 ML INH ×2 (07:30→11:25)
[2024-07-29 08:09] LABS: % Basophils 0.3 % (0-2); % Eosinophils 1.6 % (0-6); % Immature Granulocytes 0.6 % (0-0.5); % Lymphocytes 30.3 % (20.5-51.1); % Monocytes 6.5 % (1.7-9.3); % Neutrophils 60.7 % (42.2-75.2); Absolute Eosinophils 0.1 10^3/uL (0-0.7); Absolute Lymphocytes 2.1 10^3/uL (1.2-3.4); Absolute Monocytes 0.5 10^3/uL (0.1-0.6); Absolute Neutrophils 4.3 10^3/uL (1.4-6.5); Hematocrit 32.4 % (39.0-52.0); Hemoglobin 10.8 g/dL (13.0-18.0); Mean Corp Hgb Conc. 33.3 g/dL (33.0-37.0); Mean Corpuscular Hgb 32.3 pg (27.0-31.0); Mean Platelet Volume 10.5 fL (7.4-10.4); Nucleated Red Blood Cells % 0 % (-); Platelet Count 245 10^3/uL (130-400); Red Blood Cell Count 3.34 10^6/uL (4.70-6.10); White Blood Cell Count 7.1 10^3/uL (4.8-10.8)
[2024-07-29] MEDS: LOW STRENGTH ASPIRIN 81 MG TUBE (08:21)
[2024-07-29] MEDS: FLORASTOR 250 MG TUBE (08:21)
[2024-07-29] MEDS: LOPRESSOR 50 MG TUBE (08:21)
[2024-07-29] MEDS: PEPCID 40 MG TUBE (08:21)
[2024-07-29 08:43] LABS: Blood Urea Nitrogen 17 mg/dl (9-20); Calcium 8.6 mg/dl (8.4-10.2); Carbon Dioxide 29 mmol/L (22-30); Chloride 106 mmol/L (98-107); Estimated Creatinine Clearance 83 ml/min; Glucose 115 mg/dl (70-99); Potassium 4.3 mmol/L (3.5-5.1); Sodium 140 mmol/L (135-145); eGFR > 60.00
[2024-07-29 09:49] VITALS: BP 163/65
[2024-07-29 11:35] LABS: Glucose - Point of Care 150 mg/dl (70-99)
--- NOTE | 2024-07-29 12:47 | W.PN.HOSP.TC ---
Addendum entered and electronically signed by Vito Kamara MD 07/29/24 13:01:
Discussed with spouse. She wants to take patient home today
Original Note:
Today's Communication/Plan
-
Monitor vitals
See plan
Calm today, discussed with spouse that she does not want any risperidone on discharge
Change antibiotics to oral
cw PEG feeding
Assessment / Plan
Assessment / Plan
Ar[age]avelma-25-hh[age]-old male with PMHx significant for dementia, prolonged encephalopathy, dysphagia with PEG tube in place, first-degree AV block, recurrent aspiration pneumonia is admitted to the hospital for evaluation of fever and questionable
pneumonia.
Plan-
Acute TME/delirium from aspiration PNA
acutely delirious intermittently . Waxing and waning episodes of delirium noted throughout hospitalization. Discussed with spouse and she does not want risperidone or any sedatives on discharge. She is refusing to use them. She understand that
this might exacerbate patient's symptoms however she still does not want.
# underlying dementia
# recurrent aspiration pneumonia
# dysphagia with feeding tube
- repeat blood cx-NGTD
- appreciate ID input
- cont Unasyn/Augmentin x 7 day course
- sputum culture-non diagnostic
- STRICT NPO
- aspiration precautions
- cont tube feedings QID with Jevity 1.5
- MRI brain 07/27- No acute infarct. Stable examination. Few small chronic cerebellar infarcts. Mild chronic ischemic change. No mass effect.
- overall poor prognosis hospice appropriate but refusing
# Agitation
- underlying vascular dementia
- antipsychotics intermittently; spouse doesnt want meds on dc
#Hyperlipidemia- cont atorvastatin
#First-degree heart block
#Hypertension- continue metoprolol
#Hx CVA- cerebellar-cont asa and atorvastatin
#Hx of carotid stenosis s/p left CEA
#transaminitis - resolved, CTM
#h/o prostate ca
#GERD - cont pepcid
Code status: DNR
DVT prophylaxis: Lovenox sq
General: No Apparent Distress and Comfortable
HEENT: Moist Mucous Membranes
Respiratory: Clear to Auscultation (In bilateral upper lobes, and right middle lobe.), Wheezes (Mild wheezing in bilateral lower lobes on expiration.) and Crackles (Bilateral lower lobe crackles heard.)
Cardiac: Regular Rhythm and S1/S2; Negative Murmur or Rub
GI: Soft, Nontender, Nondistended and Normal Bowel Sounds
Musculoskeletal: No Clubbing, No Cyanosis and No Edema
Skin: Warm
Neuro: Awake, Alert and Oriented (Oriented to himself, place, person but not to time.)
Psych: agitated
Anticipated Discharge: Today
Subjective/Interval History
-
Date of Service: July 29, 2024
calm today
Objective Data
-
Labs:
Laboratory Results
07/29/24
07:25
WBC 7.1
Hgb 10.8 L
Hct 32.4 L
Plt Count 245
Sodium 140
Potassium 4.3
Chloride 106
Carbon Dioxide 29
BUN 17
Creatinine 0.6 L
Glucose 115 H
Calcium 8.6
Vital Signs:
Vital Signs
Temp Pulse Resp BP Pulse Ox
98.1 F 64 14 163/65 94
07/29/24 07:00 07/29/24 11:27 07/29/24 11:27 07/29/24 07:00 07/29/24 11:27
I&O
07/28/24 07/29/24 07/30/24
06:59 06:59 06:59
Intake Total 1740 / 1740 1720 / 1720
Output Total 600 / 600 900 / 900
Balance 1140 / 1140 820 / 820
--- NOTE | 2024-07-29 13:20 | CM ---
CM reviewed chart, patient seen bedside with , for discharge today. reports she would like to bring patient home today. IMM reviewed, signed, placed in chart. Will send updates to Leonor THOMPSON.
Plan: home with , DARBY THOMPSON, DARBY tube feed [facility]:

[facility]eds
[2024-07-29 13:27] VITALS: BP 118/53
== END 2024-07-29 14:06 | disposition home health service (06) | DRG 871 ==
LOC: 4 WEST ACU 16:41
PROVIDERS: Nurse Practitioner Family; Student in an Organized Health Care Education/Training Program; ADMITTING PHYSICIAN Hospitalist; ATTENDING PHYSICIAN Internal Medicine; CONSULT PHYSICIAN Student in an Organized Health Care Education/Training Program; EMERGENCY PHYSICIAN Student in an Organized Health Care Education/Training Program
DX: A41.89 Other specified sepsis (principal); G93.41 Metabolic encephalopathy; J69.0 Pneumonitis due to inhalation of food and vomit; F03.911 Unspecified dementia, unspecified severity, with agitation; F05 Delirium due to known physiological condition; I10 Essential (primary) hypertension; E11.9 Type 2 diabetes mellitus without complications; E78.00 Pure hypercholesterolemia, unspecified; R13.10 Dysphagia, unspecified; I44.0 Atrioventricular block, first degree; Z66 Do not resuscitate; Z86.73 Personal history of transient ischemic attack (TIA), and cerebral infarction without residual deficits; Z85.46 Personal history of malignant neoplasm of prostate; Z93.1 Gastrostomy status
CPT/HCPCS: 70450; 70551; 71045; 80048; 80053; 81003; 81015; 82962; 83605; 85025; 85027; 85610; 85730; 87040; 87070; 87205; 87449; 87502; 87641; 87811; 87899; 92526; 92610; 93005; 94640; 94669; 96361; 96374; 96375; 97116; 97162; 97530; 99285

== ENCOUNTER → 2024-08-21 10:09 | Outpatient (REF) | payer MEDICARE, BC, SELFPAY | LOC: RST 10:09 | PROVIDERS: ATTENDING PHYSICIAN Internal Medicine | DX: R13.19 Other dysphagia (principal) | CPT/HCPCS: 74230; 92611 ==

== ENCOUNTER 2024-10-11 11:26 | Outpatient (RCR) | payer MEDICARE, BC, SELFPAY | END 2024-10-11 23:59 | disposition home or self-care (01) | LOC: RST 11:26 | PROVIDERS: ATTENDING PHYSICIAN Internal Medicine | DX: R13.12 Dysphagia, oropharyngeal phase (principal); R13.13 Dysphagia, pharyngeal phase; U09.9 Post COVID-19 condition, unspecified | CPT/HCPCS: 92526; 92610 ==

== ENCOUNTER 2024-10-23 11:07 | Outpatient (RCR) | payer MEDICARE, BC, SELFPAY | END 2024-10-23 13:38 | disposition home or self-care (01) | LOC: RST 11:07 | PROVIDERS: ATTENDING PHYSICIAN Internal Medicine | DX: R13.12 Dysphagia, oropharyngeal phase (principal); R13.13 Dysphagia, pharyngeal phase; U09.9 Post COVID-19 condition, unspecified | CPT/HCPCS: 92526 ==